=== PATIENT | female | born 1955 | race Caucasian/White ===

== ENCOUNTER 2022-11-14 11:18 | Outpatient (OUT) | payer MEDICARE, OTHER, MEDICAID, SELFPAY ==
[2022-11-14 11:46] LABS: Basophils Absolute Auto 0.1 10^3/uL (0.0-0.1); Basophils Percent Auto 1.5 % (0.2-2.0); Eosinophils Absolute Auto 0.2 10^3/uL (0.0-0.7); Eosinophils Percent Auto 4.7 % (0.9-7.0); Hematocrit 38.2 % (36.0-48.0); Hemoglobin 12.5 g/dL (12.0-16.0); Immature Granulocytes Abs Auto 0.01 10^3/uL (0.00-0.03); Immature Granulocytes Pct Auto 0.3 % (0.0-0.5); Lymphocytes Absolute Auto 0.9 10^3/uL (1.2-3.8); Lymphocytes Percent Auto 27.7 % (20.5-60.0); Mean Corpuscular HGB Conc 32.7 g/dL (29.9-35.2); Mean Corpuscular Hemoglobin 29.9 pg (26.7-34.0); Mean Corpuscular Volume 91.4 fL (81.0-99.0); Mean Platelet Volume 10.2 fL (9.5-13.5); Monocytes Absolute Auto 0.3 10^3/uL (0.3-0.8); Neutrophils Percent Auto 57.8 % (43.0-75.0); Platelet Count 161 10^3/uL (150-450); Red Blood Count 4.18 10^6/uL (4.20-5.40); Red Cell Distribution Width 12.8 % (11.0-15.0); White Blood Count 3.4 10^3/uL (4.0-11.0)
--- NOTE | 2022-11-14 11:49 | XR_ITS ---
The [address] [address] Patient Name: SOFIE ADRIAN MRN: [id number] date: 1955 Sex: F Assigned Patient Location: LAB Current Patient Location: LAB Accession/Order Number: [id number] Exam Date: 11/14/2022 11:57 Report Date: 11/14/2022 13:13 At the request of: ADA WHITE Procedure: XR scoliosis survey EXAMINATION: XR scoliosis survey HISTORY: chronic pain COMPARISON: No relevant comparison available. FINDINGS: VERTEBRA: No fracture, listhesis, or abnormal wedging. Moderate to severe spondylosis and facet osteoarthropathy DISK SPACES: No significant narrowing. CURVATURE: Rotatory dextroscoliosis of the thoracolumbar spine measuring 46 degrees MEASURED FROM: T11 L4 OTHER: Hyperinflation with clear lungs. Nonobstructive bowel gas pattern. XR/XR scoliosis survey IMPRESSION: Rotatory dextroscoliosis measuring 46 degrees with underlying degenerative changes Electronically authenticated by: JOSE VAUGHN Date: 11/14/2022 13:13
--- NOTE | 2022-11-14 11:49 | XR_ITS ---
The [place] [id number] Patient Name: SOFIE ADRIAN MRN: [id number] date: 1955 Sex: F Assigned Patient Location: LAB Current Patient Location: LAB Accession/Order Number: [id number] Exam Date: 11/14/2022 11:57 Report Date: 11/14/2022 18:19 At the request of: ADA WHITE Procedure: XR knee KARLOS 4V EXAMINATION: XR knee KARLOS 4V HISTORY: bilateral knee pain COMPARISON: No relevant comparison available. FINDINGS: RIGHT FINDINGS: BONES: Mild tricompartmental osteoarthropathy. No acute fracture or dislocation SOFT TISSUES: Negative. No visible soft tissue swelling. OTHER: Suprapatellar joint effusion LEFT FINDINGS: BONES: Mild tricompartmental osteoarthropathy. No acute fracture or dislocation SOFT TISSUES: Negative. No visible soft tissue swelling. OTHER: Negative. XR/XR knee KARLOS 4V IMPRESSION: RIGHT CONCLUSION: Mild osteoarthritis LEFT CONCLUSION: Mild osteoarthritis Electronically authenticated by: JOSE VAUGHN Date: 11/14/2022 18:19
--- NOTE | 2022-11-14 11:49 | XR_ITS ---
The [address] [address] Patient Name: SOFIE ADRIAN MRN: [id number] date: 1955 Sex: F Assigned Patient Location: LAB Current Patient Location: LAB Accession/Order Number: [id number] Exam Date: 11/14/2022 11:57 Report Date: 11/14/2022 18:17 At the request of: ADA WHITE Procedure: XR hip KARLOS EXAMINATION: XR hip KARLOS HISTORY: bilateral hip pain COMPARISON: No relevant comparison available. FINDINGS: RIGHT FINDINGS: BONES: No acute fracture or dislocation. Minimal enthesopathic spurring SOFT TISSUES: Negative. No visible soft tissue swelling. OTHER: Negative. LEFT FINDINGS: BONES: No acute fracture or dislocation. Minimal enthesopathic spurring SOFT TISSUES: Negative. No visible soft tissue swelling. OTHER: Negative. XR/XR hip KARLOS IMPRESSION: RIGHT CONCLUSION: Minimal degenerative change LEFT CONCLUSION: Minimal degenerative change Electronically authenticated by: JOSE VAUGHN Date: 11/14/2022 18:17
[2022-11-14 11:58] LABS: Bilirubin Urine NEGATIVE (NEGATIVE); Blood Urine NEGATIVE (NEGATIVE); Clarity Urine CLEAR (CLEAR); Color Urine LT. YELLOW (YELLOW); Glucose Urine UA NEGATIVE (NEGATIVE); Ketones Urine NEGATIVE (NEGATIVE); Leukocyte Esterase Urine TRACE (NEGATIVE); Nitrite Urine NEGATIVE (NEGATIVE); Protein Urine NEGATIVE (NEG/TRACE); Urobilinogen Urine 0.2 EU/dL (0.2-1.0); pH Urine 5.5 (5.0-9.0)
[2022-11-14 12:01] LABS: Bacteria Urine NONE SEEN #/HPF (NONE SEEN); Mucus Urine NONE SEEN (NONE SEEN); RBC Urine NONE SEEN #/HPF (0-2); WBC Urine 0-2 #/HPF (NONE SEEN)
[2022-11-14 12:02] LABS: Squamous Epithelial Cell Urine FEW #/LPF (NONE/RARE)
[2022-11-14 12:33] LABS: Alanine Aminotransferase 24 U/L (14-59); Albumin Globulin Ratio 1.2; Albumin Level 4.1 g/dL (3.4-5.0); Alkaline Phosphatase 45 U/L (46-116); Anion Gap 13.5; Aspartate Amino Transferase 21 U/L (15-37); BUN Creatinine Ratio 27.1; Bilirubin Total 0.5 mg/dL (0.2-1.0); Carbon Dioxide 27.9 mmol/L (21.0-32.0); Chloride 105 mmol/L (98-107); Chol HDL Ratio 2.4; Cholesterol 178 mg/dL (<=200); Estimated GFR (African America >60 (>=60); Estimated GFR (Non-African Ame >60 (>=60); Globulin 3.4 g/dL; Glucose 86 mg/dL (74-106); HDL Cholesterol 73 mg/dL (40-60); Potassium 4.4 mmol/L (3.5-5.1); Sodium 142 mmol/L (136-145); Total Protein 7.5 g/dL (6.4-8.2); Triglycerides 46 mg/dL (<=150); VLDL CHOLESTEROL 9.2 mg/dL
== END 2022-11-14 11:19 | disposition home or self-care (01) ==
LOC: LAB 11:23
PROVIDERS: PCP Nurse Practitioner; Visit Provider Nurse Practitioner
DX: E78.5 Hyperlipidemia, unspecified (principal); I10 Essential (primary) hypertension; D50.9 Iron deficiency anemia, unspecified; M25.561 Pain in right knee; M25.562 Pain in left knee; G89.29 Other chronic pain; M41.9 Scoliosis, unspecified; M25.551 Pain in right hip; M25.552 Pain in left hip; M17.0 Bilateral primary osteoarthritis of knee
CPT/HCPCS: 36415; 72082; 73522; 73564; 80053; 80061; 81001; 82728; 83540; 85025

== ENCOUNTER 2023-02-03 14:45 | Outpatient (OUT) | payer MEDICARE, OTHER, MEDICAID, SELFPAY ==
--- NOTE | 2023-02-03 | XR_ITS ---
The [address] [address] Patient Name: SOFIE ADRIAN MRN: [id number] date: 1955 Sex: F Assigned Patient Location: [facility] Current Patient Location: [facility] Accession/Order Number: [id number] Exam Date: 02/03/2023 13:10 Report Date: 02/03/2023 15:35 At the request of: MOHAMUD ORTEGA Procedure: XR foot KARLOS min 3V STUDY: XR foot KARLOS min 3V, [id number] HISTORY: CHECKING SURGICAL HARWARE COMPARISON: Bilateral foot x-rays 08/06/2021. FINDINGS: Right foot: Status post first metatarsophalangeal joint effusion. There are new lucencies at the bone hardware interface surrounding the first proximal phalanx fusion screws. No significant bone hardware interface lucency involving the screws at the first metatarsal. No acute fracture or dislocation. Resection of the distal aspect of the proximal second through fifth phalanges. Mild osteoarthritis of the midfoot. Left foot: First metatarsophalangeal joint fusion hardware is intact and similar alignment. No evidence of loosening or infection. No acute fracture, dislocation, or suspicious osseous lesion. Resection of the distal aspects of the second through fifth proximal phalanges. IMPRESSION: New lucency at the bone hardware interface involving the fusion screws of the right first proximal phalanx which could represent the sequela of loosening or infection. Electronically authenticated by: FLORENTINO ROSS Date: 02/03/2023 15:35
== END 2023-02-03 14:46 | disposition home or self-care (01) ==
LOC: RAD 14:46
PROVIDERS: PCP Nurse Practitioner; Visit Provider Physician Assistant
DX: M79.673 Pain in unspecified foot (principal); Z98.1 Arthrodesis status
CPT/HCPCS: 73630

== ENCOUNTER 2023-04-29 12:40 | Outpatient (REF) | payer MEDICARE, MEDICAID, SELFPAY ==
[2023-04-29 13:18] LABS: Influenza Virus A Antigen Negative; Influenza Virus B Antigen Negative; Internal Control Within Normal Limits; SARS-CoV-2 Ag POSITIVE (NEGATIVE)
== END 2023-04-29 12:41 | disposition home or self-care (01) ==
LOC: LAB 12:40
PROVIDERS: PCP Nurse Practitioner; Visit Provider Nurse Practitioner
DX: Z11.8 Encounter for screening for other infectious and parasitic diseases (principal)
CPT/HCPCS: 87804; 87811

== ENCOUNTER 2023-06-03 11:01 | Outpatient (OUT) | payer MEDICARE, SELFPAY ==
--- NOTE | 2023-06-03 | XR_ITS ---
The [address] [address] Patient Name: SOFIE ADRIAN MRN: [id number] date: 1955 Sex: F Assigned Patient Location: [facility] Current Patient Location: [facility] Accession/Order Number: [id number] Exam Date: 06/03/2023 11:09 Report Date: 06/03/2023 13:08 At the request of: BARRETT MORRISON Procedure: XR foot RT min 3V PROCEDURE: XR foot RT min 3V COMPARISON: 02/03/2023 HISTORY: RIGHT FOOT PAIN FINDINGS: BONES:Stable fusion of the first metatarsal-phalangeal joint with a dorsal plate and screws. Incomplete bony bridging. No acute fracture, dislocation or mechanical failure. Mild degenerative changes with marginal osteophyte formation. Minimal enthesopathic spurring plantar calcaneus SOFT TISSUES:Negative. No visible soft tissue swelling. EFFUSION:None visible. OTHER: Negative. XR/XR foot RT min 3V IMPRESSION: Stable first metatarsal-phalangeal joint fusion with incomplete bony bridging Electronically authenticated by: JOSE VAUGHN Date: 06/03/2023 13:08
--- OUTSIDE RECORDS SUMMARY | 2023-06-03 11:16 | XMS_ITS | CCD ---
Author Name Unknown Address [email or web address] [place] [address] Organization [facility] Care Team Providers Care Framing Consultant Name Role Phone NATASHA YUN (MODEL MAKER) Unavailable UnavailNATASHA Sherman (MODEL MAKER) Unavailable UnavailTERESA Miranda Unavailable Unavailable ALAEDEEN, ADIS Unavailable Unavailable AICHHOLZ, YOUTH MINISTRY DIRECTOR ROSARIO Admitting Unavailable AICHHOLZ, YOUTH MINISTRY DIRECTOR ROSARIO Attending Unavailable AICHHOLZ, YOUTH MINISTRY DIRECTOR ROSARIO Consulting Unavailable AICHHOLZ, YOUTH MINISTRY DIRECTOR ROSARIO Primary Care Unavailable DR ISAIAH ROJAS Consulting Unavailable AICHHOLZ, YOUTH MINISTRY DIRECTOR ROSARIO Admitting Unavailable AICHHOLZ, YOUTH MINISTRY DIRECTOR ROSARIO Attending Unavailable AICHHOLZ, YOUTH MINISTRY DIRECTOR ROSARIO Consulting Unavailable AICHHOLZ, YOUTH MINISTRY DIRECTOR ROSARIO Primary Care Unavailable AICHHOLZ, YOUTH MINISTRY DIRECTOR ROSARIO Admitting Unavailable AICHHOLZ, YOUTH MINISTRY DIRECTOR ROSARIO Consulting Unavailable AICHHOLZ, YOUTH MINISTRY DIRECTOR ROSARIO Attending Unavailable AICHHOLZ, YOUTH MINISTRY DIRECTOR ROSARIO Primary Care Unavailable DR ISAIAH ROJAS Consulting Unavailable JOCELINE ORTEGA Attending Unavailable DR ISAIAH ROJAS Consulting Unavailable JORDAN, JOCELINE Admitting Unavailable AICHHOLZ, YOUTH MINISTRY DIRECTOR ROSARIO Primary Care Unavailable JOCELINE ORTEGA Consulting Unavailable DR ISAIAH ROJAS Consulting Unavailable JORDAN, JOCELINE Admitting Unavailable JORDAN, JOCELINE Attending Unavailable AICHHOLZ, YOUTH MINISTRY DIRECTOR ROSARIO Primary Care Unavailable JORDAN, JOCELINE Consulting Unavailable DR JESSICA SAMPSON Consulting Unavailable GRABIEL, NAYE Admitting Unavailable NAYE SPAIN Attending Unavailable AICHHOLZ, YOUTH MINISTRY DIRECTOR ROSARIO Primary Care Unavailable DR HOLLIE MATA Consulting Unavailable CHAPIN DEJESUS Consulting Unavailable NAYE SPAIN Consulting Unavailable BRIEN JAIMES Consulting Unavailable AICHHOLZ, YOUTH MINISTRY DIRECTOR ROSARIO Consulting Unavailable AICHHOLZ, YOUTH MINISTRY DIRECTOR ROSARIO Admitting Unavailable AICHHOLZ, YOUTH MINISTRY DIRECTOR ROSARIO Attending Unavailable AICHHOLZ, YOUTH MINISTRY DIRECTOR ROSARIO Primary Care Unavailable AICHHOLZ, YOUTH MINISTRY DIRECTOR ROSARIO Admitting Unavailable MONIQUE AMEZUQITA Attending Unavailable MONIQUE AMEZQUITA Consulting Unavailable MONIQUE AMEZQUITA Primary Care Unavailable ROSARIO AMEZQUITA Attending Unavailable Allergies Allergy Classification Reported Allergen(s) Allergy Type Date of Onset Reaction(s) Facility (3 sources) Penicillins; Translations: [PENICILLINS] Propensity to adverse reactions to drug (disorder) 4 [facility] Other [place] Repository (2 sources) Sulfonamides (Antibiotic); Translations: [SULFA (SULFONAMIDE ANTIBIOTICS)] Propensity to adverse reactions to drug (disorder) 4 [facility] Repository (1 source) Sulfonamides (Antibiotic) Drug allergy (disorder) 5 [facility] Repository Problems Active Problems Problem Classification Problem Date Documented Da te Episodic/Chronic Essential hypertension (1 source) Essential (primary) hypertension; Translations: [ESSENTIAL PRIMARY HYPERTENSION] Onset: 10-23-2021 Chronic Other screening for suspected conditions (not mental disorders or infectious disease) (9 sources) Encounter for screening mammogram for malignant neoplasm of breast; Translations: [Encounter for screening for malignant neoplasm of cervix] Onset: 01-06-2022 Episodic Residual codes; unclassified (1 source) Family history of malignant neoplasm of prostate; Translations: [FAMILY HX MALIG NEOPLASM PROSTATE] Onset: 07-25-2022 Episodic Unclassified (4 sources) CONTACT W/AND (SUSP) EXPOS COVID-19; Translations: [CONTACT W/AND (SUSP) EXPOS COVID-19] Onset: 10-23-2021 Past or Other Problems Problem Classification Problem Date Documented Da te Episodic/Chronic Abdominal pain (5 sources) Generalized abdominal pain; Translations: [Epigastric pain] Onset: 02-04-2017 Episodic Deficiency and other anemia (4 sources) Iron deficiency anemia, unspecified; Translations: [IRON DEFICIENCY ANEMIA UNSPECIFIED] Onset: 12-03-2021 Episodic Intestinal obstruction without hernia (2 sources) Other intestinal obstruction; Translations: [Unspecified intestinal obstruction, unspecified as to partial versus complete obstruction] Onset: 01-09-2017 Episodic Nausea and vomiting (1 source) Nausea with vomiting, unspecified; Translations: [NAUSEA WITH VOMITING UNSPECIFIED] Onset: 10-23-2021 Episodic Other aftercare (1 source) Other fci (current) drug therapy; Translations: [OTH NURSING HOME CURRENT DRUG THERAPY] Onset: 10-23-2021 Episodic Other aftercare (1 source) shelter (current) use of aspirin; Translations: [ANODE BUILDER CURRENT USE OF ASPIRIN] Onset: 10-23-2021 Episodic Other bone disease and musculoskeletal deformities (1 source) Other specified disorders of bone density and structure, unspecified thigh; Translations: [OTH D/O BONE DEN STRUCT UNS THIGH] Onset: 01-13-2022 Episodic Other connective tissue disease (5 sources) Pain in left foot; Translations: [PAIN IN LEFT FOOT] Onset: 08-09-2021 Episodic Other connective tissue disease (4 sources) Pain in right foot; Translations: [PAIN IN RIGHT FOOT] Onset: 08-06-2021 Episodic Residual codes; unclassified (4 sources) Asymptomatic menopausal state; Translations: [ASYMPTOMATIC MENOPAUSAL STATE] Onset: 01-09-2022 Episodic Screening and history of mental health and substance abuse codes (1 source) Personal history of nicotine dependence; Translations: [PERSONAL HISTORY OF NICOTINE DEPEND] Onset: 10-23-2021 Episodic Unclassified (1 source) CONTACT W/AND (SUSP) EXPOS COVID-19; Translations: [CONTACT W/AND (SUSP) EXPOS COVID-19] Onset: 02-12-2022 Results Test Name Value Interpretation Reference Range Facility MG MAMM SCREEN 3D KARLOS CADon 07-21-2022 MG MAMM SCREEN 3D KARLOS CAD Patient: SOFIE ADRIAN Exam Date: 07/21/2022 : 1955 Gender:F Ordering : MONIQUE AMEZQUITA [facility] Admission #: [id number] Family : Order #: [id number] CLICK HERE TO VIEW EXAM RADIOLOGY REPORT PROCEDURE: MAMMOGRAM SCREENING 3D BILATERAL CAD COMPARISON: MG MAMM SCREEN 3D KARLOS CAD, 07/16/2021. MG MAMM SCREEN KARLOS W CAD, 04/17/2020. MG MAMM SCREEN KARLOS W CAD, 04/04/2019. MG MAMM SCREEN KARLOS W CAD, 07/29/2012. INDICATIONS: Screening mammography Calculator Name NCI Breast Cancer Risk Assessment Tool 5 Year Breast Cancer Risk 1.20% Lifetime Breast Cancer Risk 4.20% Personal Breast Cancer No Personal Ovarian Cancer No Treatments None Family Cancers Father with prostate cancer at age 75. LOCATION: [facility] BREAST COMPOSITION: Scattered areas fibroglandular density. FINDINGS: DIAGNOSTIC CATEGORY 1--NEGATIVE. RIGHT BREAST: No significant suspicious finding. No significant change has occurred. LEFT BREAST: No significant suspicious finding. No significant change has occurred. RECOMMENDATIONS: ROUTINE MAMMOGRAM AND CLINICAL EVALUATION IN 12 MONTHS. PLEASE NOTE: A NORMAL MAMMOGRAM DOES NOT EXCLUDE THE POSSIBILITY OF BREAST CANCER. A CLINICALLY SUSPICIOUS PALPABLE LUMP SHOULD BE BIOPSIED. Dictated by: Isaiah Rojas M.D. on 07/21/2022 at 12:14 Approved by: Isaiah Rojas M.D. on 07/21/2022 at 12:20 Normal [facility]-25 SARS-CoV-2 (COVID-19) RNA BOBO+probe Ql (Unsp spec) Not detected Normal NOT DETECTED [facility] Comment on above: Result Comment: This test is not yet bryson roved or cleared by the [place] FDA. When there are no FDA-approved or cleared tests available, and other criteria are met, FDA can make tests available under an emergency access mechanism called an Emergency Use Authorization (EUA). The EUA for this test is supported by the Adult Services Librarian of Health and Human Service's (HHS's) declaration that circumstances exist to justify the emergency use of in vitro diagnostics for the detection and/or diagnosis of the virus that causes COVID-19. This EUA will remain in effect (meaning this test can be used) for the duration of the COVID-19 declaration justifying emergency of IVDs, unless it is terminated or revoked by FDA (after which the test may no longer be used). When diagnostic testing is negative, the possibility of a false negative should be considered in the context of a patient's recent exposures and the presence of clinical signs and symptoms consistent with SARS-CoV-2. Performed By: #### C VDTB ####[facility] [address] [place], [place] [address]YeDr. Rashida SARMIENTO ACOG PANEL 2: 30 to 65on 01-14-2022 . . Normal [facility] Comment on above: Performed By: #### [id number] ####[facility] [address] [place], [place] [address]Si. Yilan Carcamo Age Gdln ACOG Testing Comment Normal [facility] Comment on above: Result Comment: <21 or >65 or no age pro vided Performed By: #### [id number] ####[facility] [address] [place], [place] [address]DrDallas Carcamo DIAGNOSIS: Comment Normal [facility] Comment on above: Result Comment: NEGATIVE FOR INTRAEPITHE LIAL LESION OR MALIGNANCY. CELLULAR CHANGES ASSOCIATED WITH ATROPHY ARE PRESENT. THIS SPECIMEN WAS RESCREENED PART OF OUR BACK ORDER CLERK PROGRAM. Performed By: #### 4 [id number] ####[facility] [address] [place], [place] [address]DrDallas Carcamo Methodology: Comment Normal [facility] Comment on above: Result Comment: This liquid based ThinPr ep(R) pap test was screened with the use of an image guided system. Performed By: #### 4 [id number] ####[facility] [address] [place], [place] [address]DrDallas Carcamo Note: Comment Normal [facility] Comment on above: Result Comment: The Pap smear is a scree sena test designed to aid in the detection of premalignant and malignant conditions of the uterine cervix. It is not a diagnostic procedure and should not be used as the sole means of detecting cervical cancer. Both false-positive and false-negative reports do occur. . Performed By: #### [id number] ####[facility] [address] [place], [place] [address]DrDallas Carcamo Performed by: Comment Normal [facility] Comment on above: Result Comment: Sukumar Peraza [employer] nologist (ASCP) Performed By: #### 4 [id number] ####[facility] [address] [place], [place] [address]DrDallas Carcamo QC reviewed by: Comment Normal [facility] Comment on above: Result Comment: Neymar Urbano Customer Solutions Coordinator (ASCP) Performed By: #### [id number] ####[facility] [address] [place], [place] [address]DrDallas Carcamo Specimen adequacy: Comment Normal [facility] Comment on above: Result Comment: Satisfactory for evaluat ion. Endocervical component may not be distinguished in cases of atrophy. Performed By: #### 4 [id number] ####[facility] [address] [place] [address]Dr. Rashida Carcamo XR DEXA BONE DENSITYon 01-09 XR DEXA BONE DENSITY EXAMINATION: XR DEXA BONE DENSITY, 01/09/2022 10:30 AM EDT HISTORY: Menopause present COMPARISON: None. TECHNIQUE: Dual-energy X-ray absorptiometry (DEXA) bone density study performed for the axial skeleton. FINDINGS: FOREARM ANALYSIS: Average bone mineral density is 0.550 g/cm2. T-score (standard deviation relative to young adult mean): -2.3 . HIP ANALYSIS: Lowest bone mineral density is within the femoral neck, 0.743 g/cm2. T-score (standard deviation relative to young adult mean): -2.1 . IMPRESSION: World [employer] Organization Classification: Osteopenia - Moderate Fracture Risk Electronically authenticated by: ISAIAH ROJAS Date: 2022-01-09 10:53 Normal [facility] CBC W MANUAL DIFFon 01-07-20 22 ATYPICAL LYMPH # Normal [facility] Comment on above: Performed By: #### CBCBONY ####[facility] [address] [place] [address]Dr. Rashida Carcamo ATYPICAL LYMPH % Normal [facility] Comment on above: Performed By: #### CBCMAN ####[facility] ospital [address] [place] [address]Dr. Kenialan Carcamo BAND # Normal 0.0-0.3 [facility] Comment on above: Performed By: #### CBCBONY ####[facility]spital [address] [place] [address]Dr. Kenialan Carcamo BAND % Normal 0-5 [facility] Comment on above: Performed By: #### CBCMAN ####[facility] ospital [address] [place] [address]Dr. Rashida Carcamo BASOM # 0.00 103/ul Normal 0.00-0.10 [facility] Comment on above: Performed By: #### CBCBONY ####[facility] ospital [address] [place] [address]Dr. Rashida Carcamo BASOM % 0.0 % Critically low 0.2-2.0 [facility] Comment on above: Performed By: #### CBCMAN ####[facility] ospital [address] [place] [address]Dr. Rashida Carcamo BLAST # Normal [facility] Comment on above: Performed By: #### CBCMAN ####[facility] [address] [place] [address]Dr. Rashida Carcamo BLAST % Normal [facility] Comment on above: Performed By: #### CBCMAN ####[facility] o[facility]ital [address] [place] [address]Dr. Rashida Carcamo CORRECTED WBC Normal 4.0-11.0 [facility] Comment on above: Performed By: #### CBCMAN ####[facility] [address] [place] [address]Dr. Rashida Carcamo EOS # 0.00 103/ul Normal 0.00-0.70 [facility] Comment on above: Performed By: #### CBCMAN ####[facility] o[facility] [address] [place] [address]Dr. Rashida Carcamo EOS% 0.0 % Critically low 0.9-7.0 [facility] Comment on above: Performed By: #### CBCMAN ####[facility] [address] [place] [address]Dr. Rashida Carcamo HCT 37.0 % Normal 36.0-48.0 [facility] Comment on above: Performed By: #### CBCMAN ####[facility] o[facility] Y[address] [place] [address]Dr. Rashida Carcamo HGB 12.0 g/dl Normal 12.0-16.0 [facility] Comment on above: Performed By: #### CBCMAN ####[facility] ospital [address] [place] [address]Dr. Rashida Carcamo LYMPHM # 0.70 103/ul Critically low 1.20-3.80 [facility] Comment on above: Performed By: #### CBCBONY ####[facility] o[facility]ital [address] [place] [address]Dr. Rashida Carcamo LYMPHM% 25.0 % Normal 20.5-60.0 [facility] Comment on above: Performed By: #### CBCMAN ####[facility] [address] [place] [address]Dr. Rashida Carcamo MCH 30.4 pg Normal 26.7-34.0 [facility] Comment on above: Performed By: #### CBCBONY ####[facility] o[facility] [address] [place] [address]Dr. Rashida Carcamo MCHC 32.4 g/dl Normal 29.9-35.2 [facility] Comment on above: Performed By: #### CBCBONY ####[facility] o[facility]ital [address] [place] [address]Dr. Rashida Carcamo MCV 93.7 fL Normal 81.0-99.0 [facility] Comment on above: Performed By: #### CBCMAN ####[facility] [address] [place] [address]Dr. Rashida Carcamo METAMYELOCYTE # Normal [facility] Comment on above: Performed By: #### CBCMAN ####[facility] [address] [place] [address]Dr. Rashida Carcamo METAMYELOCYTE % Normal [facility] Comment on above: Performed By: #### CBCMAN ####[facility] o[facility]ital [address] [place] [address]Dr. Rashida Carcamo MONOM# 0.22 103/ul Critically low 0.30-0.80 [facility] Comment on above: Performed By: #### CBCMAN ####[facility] Sakimgbtcb[address] [place] [address]Dr. Rashida Carcamo MONOM% 8.0 % Normal 1.7-12.0 [facility] Comment on above: Performed By: #### CBCBONY ####[facility] X[address]fyz[address] [place] [address]Dr. Rashida Carcamo MPV 10.8 fL Normal 9.5-13.5 [facility] Comment on above: Performed By: #### CBCBONY ####[facility] o[facility]ital Kcyktcqjdw[address] [place] [address]Dr. Rashida Carcamo MYELOCYTE # Normal [facility] Comment on above: Performed By: #### CBCBONY ####[facility] o[facility]ital Re[address] [place] [address]Dr. Rashida Carcamo MYELOCYTE % Normal [facility] Comment on above: Performed By: #### CBCBONY ####[facility] o[facility]ital Hopej[address]yje[address] [place] [address]Dr. Rashida Carcamo NRBC Normal [facility] Comment on above: Performed By: #### CBCBONY ####[facility] o[facility] D[address]jw[address] [place] [address]Dr. Rashida Carcamo PLT 154 103/ul Normal 150-450 [facility] Comment on above: Performed By: #### CBCBONY ####[facility] Eqrswgwecn[address] [place] [address]Dr. Rashida Carcamo RBC 3.95 106/ul Critically low 4.20-5.40 [facility] Comment on above: Performed By: #### CBCBONY ####[facility] o[facility]ital [address]qncv[address] [place] [address]Dr. Rashida Carcamo RDW 13.2 % Normal 11.0-15.0 [facility] Comment on above: Performed By: #### CBCBONY ####[facility] Lcgpdfmrws4254 [place] [address]Dr. Rashida Carcamo SEG # 1.88 103/ul Normal 1.40-6.50 [facility] Comment on above: Performed By: #### CBCBONY ####[facility] o[facility]ital Mhevptiubw[address] [place] [address]Dr. Rashida Carcamo SEG % 67.0 % Normal 43.0-75.0 [facility] Comment on above: Performed By: #### CBCMAN ####[facility] o[facility]ital Rrlbwgjiyy[address] [place] [address]Dr. Rashida Carcamo WBC 2.8 103/ul Critically low 4.0-11.0 [facility] Comment on above: Performed By: #### CBCMAN ####[facility] ospital [address] [place], [place] [address]DrDallas Aquinoflory Carlos Alberto CBC AUTO DIFFon 12-03-2021 BASO # 0.1 103/ul Normal 0.0-0.1 [facility] Comment on above: Performed By: #### CBC ####[facility] ital Bauldeptob[address] [place], [place] [address]DrDallas Carcamo Basophils/100 WBC (Bld) 1.9 % Normal 0.2-2.0 [facility] Comment on above: Performed By: #### CBC ####[facility] ital Rncektnkji[address] [place], [place] [address]DrDallas Carcamo EO # 0.2 103/ul Normal 0.0-0.7 [facility] Comment on above: Performed By: #### CBC ####[facility] ital Ikgwpihqnx[address] [place], [place] [address]DrDallas Carcamo Eosinophils/100 WBC (Bld) 5.6 % Normal 0.9-7.0 [facility] Comment on above: Performed By: #### CBC ####[facility] ital Iyeexpbpaw[address] [place], [place] [address]DrDallas Carcamo Erythrocyte distribution width (RBC) [Ratio] 13.6 % Normal 11.0-15.0 [facility] Comment on above: Performed By: #### CBC ####[facility] ital [address]joc[address] [place], [place] [address]DrDallas Carcamo Hematocrit (Bld) [Volume fraction] 38.0 % Normal 36.0-48.0 [facility] Comment on above: Performed By: #### CBC ####[facility] ital Jnulqgrdfl[address] [place], [place] [address]Dr. Rashida Carcamo Hemoglobin (Bld) [Mass/Vol] 11.7 g/dL Critically low 12.0-16.0 [facility] Comment on above: Performed By: #### CBC ####[facility] ital Lrbxjjrnpj[address] [place] [address]Dr. Rashida Carcamo IG # 0.00 10e3/ul Normal 0.00-0.03 [facility] Comment on above: Performed By: #### CBC ####[facility] ital Qcuwchscax[address]16 [place] [address]Dr. Rashida Carcamo IG % 0.0 % Normal 0.0-0.5 [facility] Comment on above: Performed By: #### CBC ####[facility] [address] [place] [address]. Rashida Carcamo LYMPH # 0.8 103/ul Critically low 1.2-3.8 [facility] Comment on above: Performed By: #### CBC ####[facility] Ulsopoaldi[address] [place], [place] [address]Dr. Rashida Carcamo Lymphocytes/100 WBC (Bld) 29.3 % Normal 20.5-60.0 [facility] Comment on above: Performed By: #### CBC ####[facility] Bjqjkuyahd[address] [place], [place] [address]Dr. Rashida Carcamo MANUAL DIFF REQ NO Normal [facility] Comment on above: Performed By: #### CBC ####[facility] Csugeviimp[address] [place], [place] [address]Dr. Rashida Carcamo MCH (RBC) [Entitic mass] 29.7 pg Normal 26.7-34.0 [facility] Comment on above: Performed By: #### CBC ####[facility] Wbrxbxsgxu[address] [place], [place] [address]Dr. Rashida Carcamo MCHC (RBC) [Mass/Vol] 30.8 g/dL Normal 29.9-35.2 [facility] Comment on above: Performed By: #### CBC ####[facility] [address]ot[address]mkhv[address] [place], [place] [address]Dr. Rashida Carcamo MCV (RBC) [Entitic vol] 96.4 fL Normal 81.0-99.0 [facility] Comment on above: Performed By: #### CBC ####[facility] Ketqcrjggi50[address] [place] [address]DrDallas Rashida Carcamo MONO # 0.2 103/ul Critically low 0.3-0.8 [facility] Comment on above: Performed By: #### CBC ####[facility] [address]jimzvjjm[address] [place], [place] [address]Dallas Rashida Carcamo Monocytes/100 WBC (Bld) 7.5 % Normal 1.7-12.0 [facility] Comment on above: Performed By: #### CBC ####[facility] J[address]ujqizdou[address] [place], [place] [address]Dallas Rashida Carcamo NEUT # 1.5 103/ul Normal 1.4-6.5 [facility] Comment on above: Performed By: #### CBC ####[facility] O[address] [place] [address]. Rashida Carcamo Neutrophils/100 WBC (Bld) 55.7 % Normal 43.0-75.0 [facility] Comment on above: Performed By: #### CBC ####[facility] Ekuhdtdods[address] [place], [place] [address]Dallas Rashida Carcamo Platelet mean volume (Bld) [Entitic vol] 10.6 fL Normal 9.5-13.5 [facility] Comment on above: Performed By: #### CBC ####[facility] Tigtp[address]azrg[address] [place], [place] [address]Dallas Rashida Carlos Alberto PLT 165 103/ul Normal 150-450 [facility] Comment on above: Performed By: #### CBC ####[facility] X[address]bulnq[address] [place], [place] [address]DrDallas Rashida Carlos Alberto RBC 3.94 106/ul Critically low 4.20-5.40 [facility] Comment on above: Performed By: #### CBC ####[facility] I[address]zlns[address] [place], [place] [address]DrDallas Carcamo WBC 2.7 103/ul Critically low 4.0-11.0 [facility] [facility] Comment on above: Performed By: #### CBC ####[facility] [address] [place] [address]74[address]Vc. Rashida Carcamo IRONon 12-03-2021 Iron [Mass/Vol] 85.0 ug/dL Normal 50.0-170.0 [facility] Comment on above: Performed By: #### IRON ####[facility] [id number] [place] [id number]. Rashida Carcamo Basic metabolic 2000 panelon 10-22-2021 Anion gap [Moles/Vol] 16 mmol/L Normal 9-18 [facility] Comment on above: Order Comment: Specimen Type: BLOOD SPEC IMEN Ordering Facility: [facility] Address: [address] [place] [address] Performed By: #### 2 777-1, , #### [facility] CLIA [id number] [address] [place] [address] [place] Calcium [Mass/Vol] 9.5 mg/dL Normal 8.5-10.2 [facility] Comment on above: Order Comment: Specimen Type: BLOOD SPEC IMEN Ordering Facility: [facility] Address: [address] [place] [address] Performed By: #### 2 777-1, , #### [facility] CLIA [id number] [address] [place] [address] [place] Chloride [Moles/Vol] 100 mmol/L Normal 97-105 [facility] Comment on above: Order Comment: Specimen Type: BLOOD SPEC IMEN Ordering Facility: [facility] Address: [address] [place] [address] Performed By: #### 2 777-1, , #### [facility] CLIA [id number] [address] [place] [address] [place] CO2 [Moles/Vol] 29 mmol/L Normal 22-30 [facility] Comment on above: Order Comment: Specimen Type: BLOOD SPEC IMEN Ordering Facility: [facility] Address: [address] [place] [address] Performed By: #### 2 777-1, , 49829-7 #### [facility] CLIA [id number] [address] [place] [address] [place] Creatinine [Mass/Vol] 0.58 mg/dL Normal 0.58-0.96 [facility] Comment on above: Order Comment: Specimen Type: BLOOD SPEC IMEN Ordering Facility: [facility] Address: [address] [place] [address] Performed By: #### 2 777-1, , #### [facility] CLIA [id number] [address] [place] [address] [facility] ESTIMATED GLOMERULAR FILTRATION RATE 100 mL/min/1.73m??? Normal >=60 [facility] Comment on above: Order Comment: Specimen Type: BLOOD SPEC IMEN Ordering Facility: [facility] Address: [address] [place] [address] Result Comment: Humaira mated Glomerular Filtration Rate (eGFR) is calculated using the 2020 CKD-EPI creatinine equation. This equation utilizes serum creatinine, sex, and age as parameters. The creatinine assay has traceable calibration to isotope dilution-mass spectrometry. Refer to KDIGO guidelines for clinical interpretation. In patients with unstable renal function, e.g. those with acute kidney injury, the eGFR may not accurately reflect actual GFR. Performed By: #### 2 777-1, , #### [facility] CLIA [id number] [address] [place] [address] [place] Glucose [Mass/Vol] 90 mg/dL Normal 74-99 [facility] Comment on above: Order Comment: Specimen Type: BLOOD SPEC IMEN Ordering Facility: [facility] Address: [address] [place] [address] [place] [address] Result Comment: The [place] [employer] (ADA) provides guidance for cutoff values for fasting glucose and random glucose. The ADA defines fasting as no caloric intake for at least 8 hours. Fasting plasma glucose results between 100 to 125 mg/dL indicate increased risk for diabetes (prediabetes). Fasting plasma glucose results greater than or equal to 126 mg/dL meet the criteria for diagnosis of diabetes. In the absence of unequivocal hyperglycemia, results should be confirmed by repeat testing. In a patient with classic symptoms of hyperglycemia or hyperglycemic crisis, random plasma glucose results greater than or equal to 200 mg/dL meet the criteria for diagnosis of diabetes. Reference: Standards of Medical Care in Diabetes 2016, [place] [employer]. Diabetes Care. 2016.39(Suppl 1). Performed By: #### 2 777-1, , 86828-6 #### [facility] CLIA [id number] [address] [place] [address] [place] Potassium [Moles/Vol] 3.2 mmol/L Low 3.7-5.1 [facility] Comment on above: Order Comment: Specimen Type: BLOOD SPEC IMEN Ordering Facility: [facility] Address: [address] [place], [place] [id number] Performed By: #### 2 777-1, , #### [facility] CLIA [id number] [address] [place] [address] [place] Sodium [Moles/Vol] 145 mmol/L High 136-144 [facility] Comment on above: Order Comment: Specimen Type: BLOOD SPEC IMEN Ordering Facility: [facility] Address: [address] [place], [place] [id number] Performed By: #### 2 777-1, , #### [facility] CLIA [id number] [address] [place] [address] [place] Urea nitrogen [Mass/Vol] 6 mg/dL Low 7-21 [facility] Comment on above: Order Comment: Specimen Type: BLOOD SPEC IMEN Ordering Facility: [facility] Address: [address] [place] [address] Performed By: #### 2 777-1, 99383-6, 14920-8 #### [facility] CLIA [id number] [address] [place] [address] [place] CBC panel Auto (Bld)on 10-22 Erythrocyte distribution width (RBC) [Ratio] 13.6 % Normal 11.5-15.0 [facility] Comment on above: Order Comment: Specimen Type: BLOOD SPEC IMEN Ordering Facility: [facility] Address: [address] [place] [address] Performed By: #### 5 8410-2 #### [facility] CLIA [id number] [address] [place] [address] [place] Hematocrit (Bld) [Volume fraction] 40.4 % Normal 36.0-46.0 [facility] Comment on above: Order Comment: Specimen Type: BLOOD SPEC IMEN Ordering Facility: [facility] Address: [address] [place] [address] Performed By: #### 5 8410-2 #### [facility] CLIA [id number] [address] [place] [address] [place] Hemoglobin (Bld) [Mass/Vol] 12.9 g/dL Normal 11.5-15.5 [facility] Comment on above: Order Comment: Specimen Type: BLOOD SPEC IMEN Ordering Facility: [facility] Address: [address] [place] [address] Performed By: #### 5 8410-2 #### [facility] CLIA [id number] [address] [place] [address] [place] MCH (RBC) [Entitic mass] 28.7 pg Normal 26.0-34.0 [facility] Comment on above: Order Comment: Specimen Type: BLOOD SPEC IMEN Ordering Facility: [facility] Address: [address] [place], [place] [address] Performed By: #### 5 8410-2 #### [facility] CLIA [id number] [address] [place] [address] [place] MCHC (RBC) [Mass/Vol] 31.9 g/dL Normal 30.5-36.0 [facility] Comment on above: Order Comment: Specimen Type: BLOOD SPEC IMEN Ordering Facility: [facility] Address: [address] [place], [place] [address] Performed By: #### 5 8410-2 #### [facility] CLIA [id number] [address] [place] [address] [place] MCV (RBC) [Entitic vol] 90.0 fL Normal 80.0-100.0 [facility] Comment on above: Order Comment: Specimen Type: BLOOD SPEC IMEN Ordering Facility: [facility] Address: [address] [place], [place] [address] Performed By: #### 5 8410-2 #### [facility] CLIA [id number] [address] [place] [address] [place] Nucleated RBC (Bld) [#/Vol] 10*3/uL Normal <0.01 [facility] Comment on above: Order Comment: Specimen Type: BLOOD SPEC IMEN Ordering Facility: [facility] Address: [address] [place] [address] Performed By: #### 5 8410-2 #### [facility] CLIA [id number] [address] [place] [address] [place] Platelet mean volume (Bld) [Entitic vol] 10.8 fL Normal 9.0-12.7 [facility] Comment on above: Order Comment: Specimen Type: BLOOD SPEC IMEN Ordering Facility: [facility] Address: [address] [place], [place] [address] Performed By: #### 5 8410-2 #### [facility] CLIA [id number] [address] [place] [address] [place] Platelets (Bld) [#/Vol] 155 10*3/uL Normal 150-400 [facility] Comment on above: Order Comment: Specimen Type: BLOOD SPEC IMEN Ordering Facility: [facility] Address: [address] [place] [address] Performed By: #### 5 8410-2 #### [facility] CLIA [id number] [address] [place] [address] [place] RBC (Bld) [#/Vol] 4.49 10*6/uL Normal 3.90-5.20 [facility] Comment on above: Order Comment: Specimen Type: BLOOD SPEC IMEN Ordering Facility: [facility] Address: [address] [place] [address] Performed By: #### 5 8410-2 #### [facility] CLIA [id number] [address] [place] [address] [place] WBC (Bld) [#/Vol] 2.98 10*3/uL Low 3.70-11.00 [facility] Comment on above: Order Comment: Specimen Type: BLOOD SPEC IMEN Ordering Facility: [facility] Address: [address] [place] [address] Performed By: #### 5 8410-2 #### [facility] IA [id number] [address] [place] [address] [facility] [place] CNDSon 10-22-2021 CNDS HNO ID: [id number] Author: Joceline Liang MD Service: General Surgery Author Type: Resident Type: Discharge Summary Filed: 10/22/2021 4:17 PM Note Text: Attestation signed by Cain Acosta MD at 10/22/2021 8:50 PM Attending Note I evaluated the patient and personally participated in the peters components. I agree with the resident's findings and plan as documented and have discussed the case and management of the patient's care with the resident. Signature: Cain Acosta MD Date: 10/22/2021 Time: 8:50 PM DISCHARGE SUMMARY PATIENT NAME: Sofie Adrian ADMISSION DATE: 10/19/2021 DISCHARGE DATE: 10/22/2021 Attending: Cain Mccrary* Reason for Hospitalization: Principal Problem: Small bowel obstruction (HCC) POA: Yes Resolved Problems: * No resolved hospital problems. * Operations During Hospitalization: None Procedures During Hospitalization: No procedures performed Hospital Course: Ms. Adrian is a 66 year old female who presents as transfer from [facility] for concern for SBO. She has hx of lap total colectomy with ileorectal anastomosis in 2016 and laparoscopic JOHNY for SBO from internal hernia in 2017. 4 days ago she experienced severe pain and biliious, nonbloody emesis and subsequently the same day went to the [facility] emergency room. A CT scan was done that day which revealed SBO (images uploaded). She has been waiting to be transferred to [facility] since then. Since presenting to [facility] on day 1 of her symptomology, she has not had further emesis and has had decreased pain, presumably because of the nausea and pain medications she was getting, in her words. She has had one bowel movement during this time which was last night, and is passing a small amount of flatus. SBFT was done on 10/21 which showed resolving SBO. NG tube was removed and she was started on a CLD. She continued to have ostomy function and was tolerating PO. She was advanced to [facility] and discharged home later that day. ? Labs and Procedures Pending at Discharge: No pending results. Patient Condition at Discharge: Stable Discharge Disposition: Home with Self Care Information Provided to Patient: Patient given copy of Discharge Instructions Discharge Medications:Current Discharge Medication List CONTINUE these medications which have NOT CHANGED buprenorphine-naloxone (SUBOXONE) 8.2 Film Dissolve 8.2 Film under the tongue once daily. Dissolve 2 films under the tongue once daily spironolactone (ALDACTONE) 100 mg Take 100 mg by mouth once daily. Qty: 7 tablet Refills: 0 acetaminophen (TYLENOL) 650 mg Take 650 mg by mouth every 6 hours. Refills: 0 docusate sodium (COLACE) 100 mg Take 100 mg by mouth twice daily. Qty: 30 capsule Refills: 1 magnesium hydroxide (MOM) 30 mL Take 30 mL by mouth twice daily. Qty: 1800 mL Refills: 1 amitriptyline (ELAVIL) 25 mg Take 25 mg by mouth daily at bedtime. celecoxib (CeleBREX) 200 mg Take 200 mg by mouth once daily. hydroCHLOROthiazide (HYDRODIURIL, ESIDRIX) 25 mg Take 25 mg by mouth once daily. HYDROcodone-acetaminophen (NORCO) 1 tablet Take 1 tablet by mouth every 8 hours as needed for pain. meloxicam (MOBIC) 15 mg Take 15 mg by mouth once daily. rOPINIRole (REQUIP) 2 mg Take 2 mg by mouth daily at bedtime. febuxostat (ULORIC) 40 mg tab Take by mouth once daily. albuterol HFA (PROVENTIL HFA, VENTOLIN HFA) 2 Puffs Inhale 2 Puffs as instructed every 6 hours as needed for wheezing/shortness of breath. atorvastatin (LIPITOR) 10 mg Take 10 mg by mouth once daily. Cetirizine 10 mg cap Take by mouth once daily. omeprazole (PriLOSEC) 1 capsule Take 1 capsule by mouth once daily. Qty: 30 capsule Refills: 4 METOPROLOL TARTRATE ORAL 50 mg Take 50 mg by mouth twice daily. FLUoxetine HCl (PROzac) 40 mg Take 40 mg by mouth once daily. traMADol (ULTRAM) 50 mg Take 50 mg by mouth every 6 hours as needed. OTC PRODUCT Indications: OSTEO-BIFLEX Takes 2 PO QD SIGNATURE: Joceline Liang MD PAGER: [phone] DATE: October 22, 2021 TIME: 11:22 AM Normal [facility] Magnesium SerPl-mCncon 10-22 Magnesium [Mass/Vol] 1.6 mg/dL Low 1.7-2.3 [facility] Comment on above: Order Comment: Specimen Type: BLOOD SPEC IMEN Ordering Facility: [facility] Address: [address] [place], [place] [phone] Performed By: #### 2 777-1, 36719-0, 80824-8 #### [facility] CLIA [id number] [address] [place] [address] [facility] Phosphate SerPl-mCncon 10-22 Phosphate [Mass/Vol] 3.0 mg/dL Normal 2.7-4.8 [facility] Comment on above: Order Comment: Specimen Type: BLOOD SPEC IMEN Ordering Facility: [facility] Address: [address] [place], [place] [phone] Performed By: #### 2 777-1, 06491-4, 38177-5 #### [facility] CLIA [id number] [address] [place] [address] [place] VDUVLSon 10-21-2021 VDUVLS Non-Invasive Vascula r Laboratory [facility] J35 Lower Extremity Venous Duplex Bilateral/Complete Date of service/time: 10/21/2021 8:12:37 AM Name: SOFIE ADRIAN Date of : 1955 Age: 66 years Gender: F Clinical Indication Shortness of breath. TECHNIQUE -------- A venous duplex ultrasound examination was performed, including grayscale imaging with compression maneuvers and color Doppler and spectral Doppler examination with augmentation maneuvers and response to respiration of the below mentioned veins. FINDINGS -------- RIGHT SIDE Distal external iliac vein Doppler: normal flow. Compression: normal. Common femoral vein Doppler: normal flow. Compression: normal. Femoral vein Doppler: normal flow. Compression: normal. Popliteal vein Doppler: normal flow. Compression: normal. Posterior tibial veins Compression: normal. Peroneal veins Compression: normal. Great saphenous vein Compression: normal. Small saphenous vein Compression: normal. LEFT SIDE Distal external iliac vein Doppler: normal flow. Compression: normal. Common femoral vein Doppler: normal flow. Compression: normal. Femoral vein Doppler: normal flow. Compression: normal. Popliteal vein Doppler: normal flow. Compression: normal. Posterior tibial veins Compression: normal. Peroneal veins Compression: normal. Great saphenous vein Compression: normal. Small saphenous vein Compression: normal. IMPRESSION RIGHT SIDE - DEEP VEINS Negative for acute deep vein thrombosis. LEFT SIDE - DEEP VEINS Negative for acute deep vein thrombosis. Technologist: Rosi Freeman RVT Ordering physician: JONAS SUAREZ Interpreting physician: Pavithra Barker MD, NOELLE, RVT Final [id number] amicsSISUID See Link below for Image Normal [facility] XR SMALL BOWEL SERIESon 09-26 XR SMALL BOWEL SERIES * * *Final Report* * * DATE OF EXAM: Oct 21 2021 2:38PM HGX [id number] - XR SMALL BOWEL SERIES / PROCEDURE REASON: Bowel obstruction suspected * * * * Physician Interpretation * * * * SMALL BOWEL SERIES HISTORY:Laparoscopic total abdominal colectomy with ileorectal anastomosis 2016; adhesive small bowel obstruction 2017; CT of 10/18/2021 with small bowel obstruction TECHNIQUE: A small bowel examination was performed. Contrast: OTHER: 150 ml of OMNIPAQUE 350 RESULT: On the preliminary film there is an NG tube the tip of which is in the gastric antrum. There are mildly dilated gas-filled loops of small bowel. Bowel melida are present in the pelvis. Contrast reaches the rectosigmoid within 250 minutes. There are non to mildly dilated loops of small bowel. IMPRESSION: RESOLVING SMALL BOWEL OBSTRUCTION. Lokie Engineer: GIO Transcribe Date/Time: Oct 21 2021 2:44P Dictated by : JESSICA ADRIAN MD This examination was interpreted and the report reviewed and electronically signed by: JESSICA ADRIAN MD on Oct 21 2021 2:45PM EST [id number] Normal [facility] CBC panel Auto (Bld)on 10-20 Erythrocyte distribution width (RBC) [Ratio] 14.6 % Normal 11.5-15.0 [facility] Comment on above: Order Comment: Specimen Type: BLOOD SPEC IMEN Ordering Facility: [facility] Address: [address] [place] [address] Performed By: #### 5 8410-2 #### [facility] IA [id number] [address] [place] [address] [place] Hematocrit (Bld) [Volume fraction] 33.4 % Low 36.0-46.0 [facility] Comment on above: Order Comment: Specimen Type: BLOOD SPEC IMEN Ordering Facility: [facility] Address: [address] [place] [address] Performed By: #### 5 8410-2 #### [facility] IA [id number] [address] [place] [address] [place] Hemoglobin (Bld) [Mass/Vol] 10.4 g/dL Low 11.5-15.5 [facility] Comment on above: Order Comment: Specimen Type: BLOOD SPEC IMEN Ordering Facility: [facility] Address: [address] [place] [address] Performed By: #### 5 8410-2 #### [facility] IA [id number] [address] [place] [address] [place] MCH (RBC) [Entitic mass] 29.1 pg Normal 26.0-34.0 [facility] Comment on above: Order Comment: Specimen Type: BLOOD SPEC IMEN Ordering Facility: [facility] Address: [address] [place] [address] Performed By: #### 5 8410-2 #### [facility] CLIA [id number] [address] [place] [address] [place] MCHC (RBC) [Mass/Vol] 31.1 g/dL Normal 30.5-36.0 [facility] Comment on above: Order Comment: Specimen Type: BLOOD SPEC IMEN Ordering Facility: [facility] Address: [address] [place], [place] [address] Performed By: #### 5 8410-2 #### [facility] CLIA [id number] [address] [place] [address] [place] MCV (RBC) [Entitic vol] 93.3 fL Normal 80.0-100.0 [facility] Comment on above: Order Comment: Specimen Type: BLOOD SPEC IMEN Ordering Facility: [facility] Address: [address] [place], [place] [address] Performed By: #### 5 8410-2 #### [facility] CLIA [id number] [address] [place] [address] [place] Nucleated RBC (Bld) [#/Vol] 10*3/uL Normal <0.01 [facility] Comment on above: Order Comment: Specimen Type: BLOOD SPEC IMEN Ordering Facility: [facility] Address: [address] [place], [place] [address] Performed By: #### 5 8410-2 #### [facility] CLIA [id number] [address] [place] [address] [place] Platelet mean volume (Bld) [Entitic vol] 10.7 fL Normal 9.0-12.7 [facility] Comment on above: Order Comment: Specimen Type: BLOOD SPEC IMEN Ordering Facility: [facility] Address: [address] [place], [place] [address] Performed By: #### 5 8410-2 #### [facility] CLIA [id number] [address] [place] [address] [place] Platelets (Bld) [#/Vol] 128 10*3/uL Low 150-400 [facility] Comment on above: Order Comment: Specimen Type: BLOOD SPEC IMEN Ordering Facility: [facility] Address: [address] [place], [place] [address] Performed By: #### 5 8410-2 #### [facility] CLIA [id number] [address] [place] [address] [place] RBC (Bld) [#/Vol] 3.58 10*6/uL Low 3.90-5.20 [facility] Comment on above: Order Comment: Specimen Type: BLOOD SPEC IMEN Ordering Facility: [facility] Address: [address] [place], [place] [address] Performed By: #### 5 8410-2 #### [facility] CLIA [id number] [address] [place] [address] [place] WBC (Bld) [#/Vol] 2.96 10*3/uL Low 3.70-11.00 [facility] Comment on above: Order Comment: Specimen Type: BLOOD SPEC IMEN Ordering Facility: [facility] Address: [address] [place], [place] [address] Performed By: #### 5 8410-2 #### [facility] CLIA [id number] [address] [place] [address] [place] Comprehensive metabolic 2000 panelon 10-20-2021 Albumin [Mass/Vol] 3.7 g/dL Low 3.9-4.9 [facility] Comment on above: Order Comment: Specimen Type: BLOOD SPEC IMEN Ordering Facility: [facility] Address: [address] [place], [place] [address] Performed By: #### 2 777-1, 47556-2, 45328-1 #### [facility] CLIA [id number] [address] [place] [address] [place] ALP [Catalytic activity/Vol] 48 U/L Normal 34-123 [facility] Comment on above: Order Comment: Specimen Type: BLOOD SPEC IMEN Ordering Facility: [facility] Address: [address] [place], [place] [address] Performed By: #### 2 777-1, , #### [facility] CLIA [id number] [address] [place] [address] [place] ALT [Catalytic activity/Vol] 11 U/L Normal 7-38 [facility] Comment on above: Order Comment: Specimen Type: BLOOD SPEC IMEN Ordering Facility: [facility] Address: [address] [place], [place] [address] Performed By: #### 2 777-1, , #### [facility] CLIA [id number] [address] [place] [address] [place] Anion gap [Moles/Vol] 14 mmol/L Normal 9-18 [facility] Comment on above: Order Comment: Specimen Type: BLOOD SPEC IMEN Ordering Facility: [facility] Address: [address] [place], [place] [address] Performed By: #### 2 777-1, , #### [facility] CLIA [id number] [address] [place] [address] [place] AST [Catalytic activity/Vol] 16 U/L Normal 13-35 [facility] Comment on above: Order Comment: Specimen Type: BLOOD SPEC IMEN Ordering Facility: [facility] Address: [address] [place], [place] [address] Performed By: #### 2 777-1, , #### [facility] CLIA [id number] [address] [place] [address] [place] Bilirubin [Mass/Vol] 0.6 mg/dL Normal 0.2-1.3 [facility] Comment on above: Order Comment: Specimen Type: BLOOD SPEC IMEN Ordering Facility: [facility] Address: [address] [place], [place] [phone] Performed By: #### 2 777-1, , #### [facility] CLIA [id number] [address] [place] [address] [place] Calcium [Mass/Vol] 8.8 mg/dL Normal 8.5-10.2 [facility] Comment on above: Order Comment: Specimen Type: BLOOD SPEC IMEN Ordering Facility: [facility] Address: [address] [place] [address] Performed By: #### 2 777-1, , #### [facility] CLIA [id number] [address] [place] [address] [place] Chloride [Moles/Vol] 104 mmol/L Normal 97-105 [facility] Comment on above: Order Comment: Specimen Type: BLOOD SPEC IMEN Ordering Facility: [facility] Address: [address] [place], [place] [id number] Performed By: #### 2 777-1, , #### [facility] CLIA [id number] [address] [place] [address] [place] CO2 [Moles/Vol] 24 mmol/L Normal 22-30 [facility] Comment on above: Order Comment: Specimen Type: BLOOD SPEC IMEN Ordering Facility: [facility] Address: [address] [place], [place] [phone] Performed By: #### 2 777-1, , #### [facility] CLIA [id number] [address] [place] [address] [place] Creatinine [Mass/Vol] 0.56 mg/dL Low 0.58-0.96 [facility] Comment on above: Order Comment: Specimen Type: BLOOD SPEC IMEN Ordering Facility: [facility] Address: [address] [place] [phone] Performed By: #### 2 777-1, 01172-8, 44445-8 #### [facility] CLIA [id number] [address] [place] [address] [place] ESTIMATED GLOMERULAR FILTRATION RATE 101 mL/min/1.73m??? Normal >=60 [facility] Comment on above: Order Comment: Specimen Type: BLOOD SPEC IMEN Ordering Facility: [facility] Address: [address] [place], [place] [phone] Result Comment: Humaira mated Glomerular Filtration Rate (eGFR) is calculated using the 2020 CKD-EPI creatinine equation. This equation utilizes serum creatinine, sex, and age as parameters. The creatinine assay has traceable calibration to isotope dilution-mass spectrometry. Refer to KDIGO guidelines for clinical interpretation. In patients with unstable renal function, e.g. those with acute kidney injury, the eGFR may not accurately reflect actual GFR. Performed By: #### 2 777-1, 71795-4, 70025-1 #### [facility] CLIA [id number] [address] [place] [address] [place] Glucose [Mass/Vol] 100 mg/dL High 74-99 [facility] Comment on above: Order Comment: Specimen Type: BLOOD SPEC IMEN Ordering Facility: [facility] Address: [address] [place], [place] [phone] Result Comment: The [place] [employer] (ADA) provides guidance for cutoff values for fasting glucose and random glucose. The ADA defines fasting as no caloric intake for at least 8 hours. Fasting plasma glucose results between 100 to 125 mg/dL indicate increased risk for diabetes (prediabetes). Fasting plasma glucose results greater than or equal to 126 mg/dL meet the criteria for diagnosis of diabetes. In the absence of unequivocal hyperglycemia, results should be confirmed by repeat testing. In a patient with classic symptoms of hyperglycemia or hyperglycemic crisis, random plasma glucose results greater than or equal to 200 mg/dL meet the criteria for diagnosis of diabetes. Reference: Standards of Medical Care in Diabetes 2016, [place] [employer]. Diabetes Care. 2016.39(Suppl 1). Performed By: #### 2 777-1, , #### [facility] CLIA [id number] [address] [place] [address] [place] Potassium [Moles/Vol] 2.7 mmol/L Low 3.7-5.1 [facility] Comment on above: Order Comment: Specimen Type: BLOOD SPEC IMEN Ordering Facility: [facility] Address: [address] [place], [place] [phone] Performed By: #### 2 777-1, , #### [facility] CLIA [id number] [address] [place] [address] [place] Protein [Mass/Vol] 6.0 g/dL Low 6.3-8.0 [facility] Comment on above: Order Comment: Specimen Type: BLOOD SPEC IMEN Ordering Facility: [facility] Address: [address] [place], [place] [phone] Performed By: #### 2 777-1, , #### [facility] CLIA [id number] [address] [place] [address] [place] Sodium [Moles/Vol] 142 mmol/L Normal 136-144 [facility] Comment on above: Order Comment: Specimen Type: BLOOD SPEC IMEN Ordering Facility: [facility] Address: [address] [place], [place] [phone] Performed By: #### 2 777-1, , #### [facility] CLIA [id number] [address] [place] [address] [place] Urea nitrogen [Mass/Vol] 12 mg/dL Normal 7-21 [facility] Comment on above: Order Comment: Specimen Type: BLOOD SPEC IMEN Ordering Facility: [facility] Address: [address] [place], [place] [phone] Performed By: #### 2 777-1, , #### [facility] CLIA [id number] [address] [place] [address] [place] Lactate (Bld) [Moles/Vol]on 10-20-2021 Lactate [Moles/Vol] 0.5 mmol/L Normal 0.5-2.2 [facility] Comment on above: Order Comment: Specimen Type: BLOOD SPEC IMEN Ordering Facility: [facility] Address: [address] [place] [address] Performed By: #### 2 777-1, , #### [facility] CLIA [id number] [address] [place] [address] [place] Magnesium SerPl-mCncon 10-20 Magnesium [Mass/Vol] 2.0 mg/dL Normal 1.7-2.3 [facility] Comment on above: Order Comment: Specimen Type: BLOOD SPEC IMEN Ordering Facility: [facility] Address: [address] [place] [address] Performed By: #### 2 777-1, , #### [facility] CLIA [id number] [address] [place] [address] [place] PT panel Coag (PPP)on 2021 INR Coag (PPP) [Relative time] 1.1 {INR} Normal 0.9-1.3 [facility] Comment on above: Order Comment: Specimen Type: BLOOD SPEC IMEN Ordering Facility: [facility] Address: [address] [place] [address] Result Comment: Rosalind min K Antagonist (VKA) Therapeutic Range: INR 2 to 3 (Target INR of 2.5) Note: For patients treated with VKA drugs, such as warfarin, the [place] [employer] 2012 Guideline recommends a therapeutic INR range of 2 to 3 (target INR of 2.5). This recommendation includes high-risk patients with antiphospholipid syndrome with previous arterial or venous thromboembolism, current-generation mechanical or bioprosthetic aortic heart valve replacement. Note: Patients with mechanical aortic valve replacement and additional risk factors for thromboembolic events (atrial fibrillation, previous thromboembolism, LV dysfunction, hypercoagulable conditions) or an older generation mechanical AVR (i.e., ball in-Cage) or any mechanical MVR should have a INR therapeutic range of 2.5 to 3.5 (target INR of 3). Dinesh GH, et al. Chest 2012, 141:7S-47S Nadeen RA, et al. [facility] 2017, 70: 252-289 Performed By: #### 2 777-1, 15158-2, 30669-9 #### [facility] CLIA [id number] [address] [place] [address] [place] PT Coag (PPP) [Time] 11.9 s Normal 9.7-13.0 [facility] Comment on above: Order Comment: Specimen Type: BLOOD SPEC IMEN Ordering Facility: [facility] Address: [address] [place] [address] Performed By: #### 2 777-1, 81914-4, 78942-9 #### [facility] IA [id number] [address] [place] [address] [place] Phosphate [facility] Phosphate [Mass/Vol] 2.0 mg/dL Low 2.7-4.8 [facility] Comment on above: Order Comment: Specimen Type: BLOOD SPEC IMEN Ordering Facility: [facility] Address: [address] [place] [address] Performed By: #### 2 777-1, 39231-4, 11970-9 #### [facility] IA [id number] [address] [place] [address] [place] SARS-CoV-2 RNA Resp Ql [facility] SARS-CoV-2 (COVID-19) RNA BOBO+probe Ql (Resp) COVID 19 RESULT: SARS-CoV-2 (Agent of COVID-19) Not Detected by RT-PCR or equivalent method. This test has been authorized by FDA under an Emergency Use Authorization (EUA). Normal [facility] Comment on above: Performed By: #### 2777-1, 57188-5, 2432 1-2 #### [facility] CLIA [id number] [address] [place] [address] [place] TYPE + SCREENon 10-20-2021 ABO A Normal [facility] Comment on above: Order Comment: Specimen Type: BLOOD SPEC IMEN Ordering Facility: [facility] Address: [address] [place] [address] Performed By: #### T SCR #### [facility] CLIA [id number] [address] [place] [address] [place] HISTORICAL AB SCR STATUS Negative Normal [facility] Comment on above: Order Comment: Specimen Type: BLOOD SPEC IMEN Ordering Facility: [facility] Address: [address] [place] [address] Performed By: #### T SCR #### [facility] CLIA [id number] [address] [place] [address] [place] Rh Nom (Bld) Negative Normal [facility] Comment on above: Order Comment: Specimen Type: BLOOD SPEC IMEN Ordering Facility: [facility] Address: [address] [place] [address] Performed By: #### T SCR #### [facility] CLIA [id number] [address] [place] [address] [place] TYPE AND SCREEN EXPIRATION 10/22/2021 23:59 Normal [facility] Comment on above: Order Comment: Specimen Type: BLOOD SPEC IMEN Ordering Facility: [facility] Address: [address] [place] [address] Performed By: #### T SCR #### [facility] CLIA [id number] [address] [place] [address] [place] aPTT PPPon 10-20-2021 aPTT Coag (PPP) [Time] 26.6 s Normal 23.0-32.4 [facility] Comment on above: Order Comment: Specimen Type: BLOOD SPEC IMEN Ordering Facility: [facility] Address: [address] [place], [place] [phone] Performed By: #### 2 777-1, 89206-5, 32819-4 #### [facility] CLIA [id number] [address] [place] [address] [facility] HISTORY PHYSICALon HISTORY PHYSICAL HNO ID: [id number] Author: [place]ia Gilmore MD Service: General Surgery Author Type: Resident Type: HANDP Filed: 10/19/2021 6:50 PM Note Text: Attestation signed by Rahat Bowie MD at 10/21/2021 6:54 AM I evaluated the patient. I discussed the case with the resident/fellow and agree with the findings and plan as documented in the resident/fellow?s note GENERAL/BARIATRIC SURGERY HISTORY AND PHYSICAL Subjective CHIEF COMPLAINT: concern for SBO HPI: This is a 66 year old female who presents as transfer [facility] for concern for SBO. She has hx of lap total colectomy with ileorectal anastomosis in 2016 and laparoscopic JOHNY for SBO from internal hernia in 2017. 4 days ago she experienced severe pain and biliious, nonbloody emesis and subsequently the same day went to the [facility] emergency room. A CT scan was done that day which revealed SBO (images uploaded). She has been waiting to be transferred to [facility] since then. Since presenting to [facility] hospital on day 1 of her symptomology, she has not had further emesis and has had decreased pain, presumably because of the nausea and pain medications she was getting, in her words. She has had one bowel movement during this time which was last night, and is passing a small amount of flatus. The patient states she usually has multiple brown stools per day at baseline. She has been afebrile and without systemic symptoms during this period. She states she takes suboxone for arthritis pain. REVIEW OF SYSTEMS: GENERAL: No weight loss, malaise or fevers. SEE HPI. HEENT: Negative for frequent or significant headaches. NECK: Negative for pain and significant neck swelling. RESPIRATORY: Negative for cough, wheezing or shortness of breath. CARDIOVASCULAR: Negative for chest pain, leg swelling. GI: Negative for abdominal discomfort, change in bowel habits, hematochezia, melena, nausea, vomiting. : No history of dysuria. MUSCULOSKELETAL: Negative for new joint pain. SKIN: Negative for new lesions. PSYCH: Negative. HEMATOLOGY/LYMPHOLOGY: Negative for prolonged bleeding. NEURO: No new headaches. All other reviewed and negative other than HPI. PAST MEDICAL HISTORY Diagnosis Date - Acid reflux - Alcohol abuse Bottle of wine daily - Arthritis - Carotid stenosis medical management - COPD (chronic obstructive pulmonary disease) (HCC) mild obstruction on PFT's 09/2013 - Former smoker 10 pack years, quit 2003 - High cholesterol - History of rheumatic fever - Hypertension - PUD (peptic ulcer disease) 02/2014 - Small bowel obstruction (HCC) - Tachycardia - Ulcer (HCC) - Vertigo PAST SURGICAL HISTORY Procedure Laterality Date - COLONOSCOPY - LAP TOTAL COLECTOMY W/O PROCT. N/A 09/19/2015 Lap total colectomy with ileorectal anastomosis - LAPAROSCOPY DIAGNOSTIC 01/09/2017 - LYSIS OF ADHESIONS 01/09/2017 - MIDLINE INSERTION/CONSULT 08/10/2015 - REMOVE TONSILS/ADENOIDS,<12 Y/O as child - SINUS SURGERY HX age 35 - TUBAL LIGATION HX age 19 FAMILY HISTORY Problem Relation Age of Onset - Heart Mother - Heart Father - Lipids Father - Diabetes Father - Hypertension Mother - Arthritis Sister Social History Tobacco Use - Smoking status: Former Smoker Packs/day: 0.50 Years: 20.00 Pack years: 10.00 Types: Cigarettes Quit date: 07/27/2003 Years since quittin.2 - Smokeless tobacco: Never Used Substance Use Topics - Alcohol use: Yes Comment: drinks a bottle of wine daily; sometimes more - Drug use: No MEDICATIONS: spironolactone (ALDACTONE) 100 mg tablet, Take 1 tablet by mouth once daily., Disp: 7 tablet, Rfl: 0 acetaminophen (TYLENOL) 325 mg tablet, Take 2 tablets by mouth every 6 hours., Disp: , Rfl: 0 docusate sodium (COLACE) 100 mg capsule, Take 1 capsule by mouth twice daily., Disp: 30 capsule, Rfl: 1 magnesium hydroxide (MOM) 400 mg/5 mL suspension, Take 30 mL by mouth twice daily., Disp: 1800 mL, Rfl: 1 amitriptyline (ELAVIL) 25 mg tablet, Take 25 mg by mouth daily at bedtime., Disp: , Rfl: celecoxib (CELEBREX) 200 mg capsule, Take 200 mg by mouth once daily., Disp: , Rfl: hydroCHLOROthiazide (HYDRODIURIL, ESIDRIX) 25 mg tablet, Take 25 mg by mouth once daily., Disp: , Rfl: HYDROcodone-acetaminophen (NORCO) 5-325 mg per tablet, Take 1 tablet by mouth every 8 hours as needed for Pain., Disp: , Rfl: meloxicam (MOBIC) 15 mg tablet, Take 15 mg by mouth once daily., Disp: , Rfl: rOPINIRole (REQUIP) 2 mg tablet, Take 2 mg by mouth daily at bedtime., Disp: , Rfl: febuxostat (ULORIC) 40 mg tab, Take by mouth once daily., Disp: , Rfl: albuterol HFA (VENTOLIN HFA) 90 mcg/actuation inhaler, Inhale 2 Puffs as instructed every 6 hours as needed for Wheezing/Shortness of Breath., Disp: , Rfl: atorvastatin (LIPITOR) 10 mg tablet, (more content not included)... Normal [facility] XR ABDOMEN 1V SUPINEon 10-19 XR ABDOMEN 1V SUPINE * * *Final Report* * * DATE OF EXAM: Oct 19 2021 6:25PM ARIES 5289 - XR ABDOMEN 1V SUPINE / PROCEDURE REASON: Evaluate tube, line or lead position * * * * Physician Interpretation * * * * XR ABDOMEN 1V SUPINE HISTORY: Evaluate tube, line or lead position TECHNIQUE: Supine abdomen (1 view), 2 image(s) with postprocessing COMPARISON: CT abdomen and pelvis 10/18/2021 RESULT: See impression. IMPRESSION: NG/OG tube tip likely in the gastric body with side-port below the diaphragm. Gas-filled mildly dilated loops of small bowel, in keeping with bowel obstruction seen on prior CT. Degenerative changes and dextroscoliosis of the spine. Lokie Engineer: PSCB Transcribe Date/Time: Oct 19 2021 7:02P Dictated by : JAN HOLLIDAY MD This examination was interpreted and the report reviewed and electronically signed by: JAN HOLLIDAY MD on Oct 19 2021 7:04PM EST [id number] Normal [facility] AMYLASEon 10-18-2021 Amylase [Catalytic activity/Vol] 46 U/L Normal 25-115 [facility] Comment on above: Performed By: #### DAVID, CMADM, LIPA, CMP #### [facility] [address] [address] [address] Rashida Carcamo CARDIAC JESSICA ADMITon 022 CK [Catalytic activity/Vol] 155 U/L Normal 26-192 [facility] Comment on above: Performed By: #### DAVID, CMADM, LIPA, CMP #### [facility] [address] [address] [address] Rashida Carcamo CK.MB [Mass/Vol] 0.64 ng/mL Normal <=3.60 [facility] Comment on above: Performed By: #### DAVID, CMADM, LIPA, CMP #### [facility] [address] [address] [address] Rashida Carcamo HSTROP <4.0 Normal 4.0-51.3 [facility] Comment on above: Result Comment: CUT-OFF POINTS HAVE BEEN ESTABLISHED BASED ON THE FOURTH UNIVERSAL DEFINITIONS OF MYOCARDIAL INFARCTION. THE UPPER REFERENCE LIMIT (URL) OF TROPONIN, DEFINED THE 99TH PERCENTILE OF cTnI DISTRIBUTION IN A REFERENCE POPULATION, HAS BEEN CONFIRMED THE DECISION THRESHOLD FOR [place] DIAGNOSIS. Performed By: #### A MY, CMADM, LIPA, CMP #### [facility] [address] [place] [address] Dr. Rashida Carcamo ADRIANA 49 ng/mL Normal 9-82 [facility] Comment on above: Performed By: #### DAVID, CMADM, LIPA, CMP #### [facility] [address] [place] [address] Dr. Rashida Carcamo CBC W MANUAL DIFFon 10-19-19 22 ATYPICAL LYMPH # Normal [facility] Comment on above: Performed By: #### CBCMAN #### [facility] [address] [place] [address] Dr. Rashida Carcamo ATYPICAL LYMPH % Normal [facility] Comment on above: Performed By: #### CBCMAN #### [facility] [address] [place] [address] Dr. Rashida Carcamo BAND # 0.1 103/ul Normal 0.0-0.3 [facility] Comment on above: Performed By: #### CBCMAN #### [facility] [address] [place] [address] Dr. Rashida Carcamo BAND % 1 % Normal 0-5 [facility] Comment on above: Performed By: #### CBCMAN #### [facility] [address] [place] [address] Dr. Rashida Carcamo BASOM # 0.00 103/ul Normal 0.00-0.10 [facility] Comment on above: Performed By: #### CBCMAN #### [facility] [address] [place] [address] Dr. Rashida Carcamo BASOM % 0.0 % Critically low 0.2-2.0 [facility] Comment on above: Performed By: #### CBCMAN #### [facility] [address] [place] [address] Dr. Rashida Carcamo BLAST # Normal [facility] Comment on above: Performed By: #### CBCMAN #### [facility] [address] [place] [address] Dr. Rashida Carcamo BLAST % Normal [facility] Comment on above: Performed By: #### CBCMAN #### [facility] [address] [place] [address] Dr. Rashida Carcamo CORRECTED WBC Normal 4.0-11.0 [facility] Comment on above: Performed By: #### CBCMAN #### [facility] [address] [place] [address] Dr. Rashida Carcamo EOS # 0.00 103/ul Normal 0.00-0.70 [facility] Comment on above: Performed By: #### CBCMAN #### [facility] [address] [place] [address] Dr. Rashida Carcamo EOS% 0.0 % Critically low 0.9-7.0 [facility] Comment on above: Performed By: #### CBCMAN #### [facility] [address] [place] [address] Dr. Rashida Carcamo HCT 44.6 % Normal 36.0-48.0 [facility] Comment on above: Performed By: #### CBCBONY #### [facility] [address] [place] [address] Dr. Rashida Carcamo HGB 14.4 g/dl Normal 12.0-16.0 [facility] Comment on above: Performed By: #### CBCBONY #### [facility] [address] [place] [address] Dr. Rashida Carcamo LYMPHM # 1.23 103/ul Normal 1.20-3.80 [facility] Comment on above: Performed By: #### CBCBONY #### [facility] [address] [place] [address] Dr. Rashida Carcamo LYMPHM% 15.0 % Critically low 20.5-60.0 [facility] Comment on above: Performed By: #### CBCBONY #### [facility] [address] [place] [address] Dr. Rashida Carcamo MCH 29.0 pg Normal 26.7-34.0 [facility] Comment on above: Performed By: #### CBCMAN #### [facility] [address] [place] [address] Dr. Rashida Carcamo MCHC 32.3 g/dl Normal 29.9-35.2 [facility] Comment on above: Performed By: #### CBCBONY #### [facility] [address] [address] [address] Rashida Carcamo MCV 89.9 fL Normal 81.0-99.0 [facility] Comment on above: Performed By: #### CBCBONY #### [facility] [address] [place] [address] Dr. Rashida Carcamo METAMYELOCYTE # Normal [facility] Comment on above: Performed By: #### CBCBONY #### [facility] [address] [address] [address] Rashida Carcamo METAMYELOCYTE % Normal [facility] Comment on above: Performed By: #### CBCBONY #### [facility] [address] [place] [address] Dr. Rashida Carcamo MONOM# 0.25 103/ul Critically low 0.30-0.80 [facility] Comment on above: Performed By: #### CBCBONY #### [facility] [address] [place] [address] Dr. Rashida Carcamo MONOM% 3.0 % Normal 1.7-12.0 [facility] Comment on above: Performed By: #### CBCBONY #### [facility] [address] [place] [address] Dr. Rashida Carcamo MPV 10.9 fL Normal 9.5-13.5 [facility] Comment on above: Performed By: #### CBCBONY #### [facility] [address] [place] [address] Dr. Rashida Carcamo MYELOCYTE # Normal [facility] Comment on above: Performed By: #### CBCBONY #### [facility] [address] [place] [address] Dr. Rashida Carcamo MYELOCYTE % Normal [facility] Comment on above: Performed By: #### CBCBONY #### [facility] [address] [place] [address] Dr. Rashida Carcamo NRBC Normal [facility] Comment on above: Performed By: #### CBCBONY #### [facility] [address] [place] [address] Dr. Rashida Carcamo PLT 172 103/ul Normal 150-450 [facility] Comment on above: Performed By: #### CBCBONY #### [facility] [address] [address] [address] Rashida Carcamo RBC 4.96 106/ul Normal 4.20-5.40 [facility] Comment on above: Performed By: #### CBCBONY #### [facility] [address] [address] [address] Rashida Carcamo RDW 14.4 % Normal 11.0-15.0 [facility] Comment on above: Performed By: #### CBCBONY #### [facility] [address] [address] [address] Rashida Carcamo SEG # 6.64 103/ul Critically high 1.40-6.50 [facility] Comment on above: Performed By: #### CBCBONY #### [facility] [address] [place] [address] Dr. Rashida Carcamo SEG % 81.0 % Critically high 43.0-75.0 [facility] Comment on above: Performed By: #### CBCBONY #### [facility] [address] [address] [address] Rashida Carcamo WBC 8.2 103/ul Normal 4.0-11.0 [facility] Comment on above: Performed By: #### CBCBONY #### [facility] [address] [place] [address] ABD/PELV W CONon 10-19-19 CT ABD/PELV W CON EXAM: CT ABD/PELV W CON 10/18/2021 4:22 AM EDT OH001 CLINICAL STATEMENT: GENERALIZED ABDOMINAL PAIN COMPARISON: No prior studies are available at the time of dictation. TECHNIQUE: Helically acquired images were obtained of the abdomen and pelvis following 100 cc of Omnipaque 300 IV contrast. No oral contrast was administered. AEC is utilized. 2-D reconstructed images are provided. FINDINGS: The gallbladder is unremarkable. The upper abdominal solid organs are unremarkable. Multiple fluid-filled dilated loops of small bowel transient point in the pelvis suggesting high-grade mechanical small bowel obstruction. Multiple surgical changes small bowel. There is no free air. There is no ascites. There is no evidence of aortic aneurysm or dissection. Atherosclerotic aortoiliac calcifications. The celiac artery, superior mesenteric artery, and superior mesenteric vein are grossly patent. There is no retroperitoneal adenopathy. There is no appendicitis or diverticulitis. There are no pelvic masses or loculated fluid collections. Uterus and bladder unremarkable. The lung bases are clear. Multilevel degenerative changes of the lumbosacral spine with scoliosis. There are no destructive bone lesions identified. IMPRESSION: Multiple fluid-filled dilated loops of small bowel transient point in the pelvis suggesting high-grade mechanical small bowel obstruction. FOLLOW-UP: Follow-up as clinically indicated. Electronically authenticated by: BRIEN SAID Date: 2021-10-18 06:24 Normal [facility] Covid-19 PCR (CVDTBH)on 09-26 SARS-CoV-2 (COVID-19) RNA BOBO+probe Ql (Unsp spec) Not detected Normal NOT DETECTED [facility] Comment on above: Result Comment: When diagnostic testing is negative, the possibility of a false negative should be considered in the context of a patient's recent exposures and the presence of clinical signs and symptoms consistent with SARS-CoV-2. This test is not yet approved or cleared by the [place] FDA. When there are no FDA-approved or cleared tests available, and other criteria are met, FDA can make tests available under an emergency access mechanism called an Emergency Use Authorization (EUA). The EUA for this test is supported by the Adult Services Librarian of Health and Human Service's declaration that circumstances exist to justify the emergency use of in vitro diagnostics for the detection and/or diagnosis of the virus that causes COVID-19. This EUA will remain in effect for the duration of the COVID-19 declaration justifying emergency of IVDs, unless it is terminated or revoked by the FDA (after which the test may no longer be used). Performed By: #### C VDTBH ####[facility] [id number], [place] [id number]. Rashida Carcamo ER URINE PROFILEon 2 Bilirubin Ql (U) Negative Normal NEGATIVE [facility] Comment on above: Performed By: #### ERUR #### [facility] [address], [place] [address] Dr. Rashida Carcamo Clarity (U) SL CLOUDY Abnormal CLEAR [facility] Comment on above: Performed By: #### ERUR #### [facility] [address] [place] [address] Dr. Rashida Carcamo Color (U) LT. YELLOW Normal YELLOW [facility] Comment on above: Performed By: #### ERUR #### [facility] [address] [place] [address] Dr. Rashida Carcamo ERUAHD A micrscopic examina tion will be performed if indicated. Normal [facility] Comment on above: Performed By: #### ERUR #### [facility] [address] [place] [address] Dr. Rashida Carcamo Glucose Ql (U) Negative Normal NEGATIVE [facility] Comment on above: Performed By: #### ERUR #### [facility] [address] [place] [address] Dr. Rashida Carcamo Hemoglobin Ql (U) Negative Normal NEGATIVE [facility] Comment on above: Performed By: #### ERUR #### [facility] [address] [place] [address] Dr. Rashida Carcamo Ketones Ql (U) 40 mg/dl Abnormal NEGATIVE [facility] Comment on above: Performed By: #### ERUR #### [facility] [address] [place] [address] Dr. Rashida Carcamo LEUKOCYTES Negative Normal NEGATIVE [facility] Comment on above: Performed By: #### ERUR #### [facility] [address] [place] [address] Dr. Rashida Carcamo Nitrite Ql (U) Negative Normal NEGATIVE [facility] Comment on above: Performed By: #### ERUR #### [facility] [address] [place] [address] Dr. Rashida Carcamo pH (U) 8.0 [pH] Normal 5-9 [facility] Comment on above: Performed By: #### ERUR #### [facility] [address] [place] [address] Dr. Rashida Carcamo SPEC GRAVITY 1.015 Normal 1.005-<=1.0 25 [facility] Comment on above: Performed By: #### ERUR #### [facility] [address] [place] [address] Dr. Rashida Carcamo UA PROTEIN Negative Normal NEGATIVE/ TRACE [facility] Comment on above: Performed By: #### ERUR #### [facility] [address] [place] [address] Dr. Rashida Carcamo UR MICRO IND NOT INDICATED Normal [facility] Comment on above: Performed By: #### ERUR #### [facility] [address] [place] [address] Dr. Rashida Carcamo Urobilinogen Qn (U) 0.2 {Lorna'U}/dL Normal 0.2 - 1.0 [facility] Comment on above: Performed By: #### ERUR #### [facility] [address] [place] [address] Dr. Rashida Carcamo LACTATE/LACTIC ACIDon 2021 Lactate [Moles/Vol] 1.3 mmol/L Normal 0.4-1.9 [facility] Comment on above: Performed By: #### LACT #### [facility] [address] [place] [address] Dr. Rashida Carcamo LIPASEon 10-18-2021 Lipase [Catalytic activity/Vol] 127.0 U/L Normal 73.0-393.0 [facility] Comment on above: Performed By: #### DAVID, CMADM, LIPA, CMP #### [facility] [address] [place] [address] Dr. Rashida Carcamo PROF 14(COMP METB)on 022 Albumin [Mass/Vol] 4.5 g/dL Normal 3.4-5.0 [facility] Comment on above: Performed By: #### DAVID, CMADM, LIPA, CMP #### [facility] [address] [place] [address] Dr. Rashida Carcamo Albumin/Globulin [Mass ratio] 1.2 {ratio} Normal [facility] Comment on above: Performed By: #### DAVID, CMADM, LIPA, CMP #### [facility] [address] [place] [address] Dr. Rashida Carcamo ALP [Catalytic activity/Vol] 67 U/L Normal 46-116 [facility] Comment on above: Performed By: #### DAVID, CMADM, LIPA, CMP #### [facility] [address] [address] [address] Rashida Carcamo ALT [Catalytic activity/Vol] 29 U/L Normal 14-59 [facility] Comment on above: Performed By: #### DAVID, CMADM, LIPA, CMP #### [facility] [address] [address] [address] Rashida Carcamo Anion gap [Moles/Vol] 14.1 mmol/L Normal [facility] Comment on above: Performed By: #### DAVID, CMADM, LIPA, CMP #### [facility] [address] [place] [address] Dr. Rashida Carcamo AST [Catalytic activity/Vol] 31 U/L Normal 15-37 [facility] Comment on above: Performed By: #### DAVID, CMADM, LIPA, CMP #### [facility] [address] [place] [address] Dr. Rashida Carcamo Bilirubin [Mass/Vol] 0.8 mg/dL Normal 0.2-1.0 [facility] Comment on above: Performed By: #### DAVID, CMADM, LIPA, CMP #### [facility] [address] [place] [address] Dr. Rashida Carcamo Calcium [Mass/Vol] 10.2 mg/dL Critically high 8.5-10.1 [facility] Comment on above: Performed By: #### DAVID, CMADM, LIPA, CMP #### [facility] [address] [place] [address] Dr. Rashida Carcamo Chloride [Moles/Vol] 100 mmol/L Normal 98-107 [facility] Comment on above: Performed By: #### DAVID, CMADM, LIPA, CMP #### [facility] [address] [address] [address] Rashida Carcamo CO2 [Moles/Vol] 29.4 mmol/L Normal 21.0-32.0 [facility] Comment on above: Performed By: #### DAVID, CMADM, LIPA, CMP #### [facility] [address] [address] [address] Rashida Carcamo Creatinine [Mass/Vol] 0.70 mg/dL Normal 0.55-1.02 [facility] Comment on above: Performed By: #### DAVID, CMADM, LIPA, CMP #### [facility] [address] [address] [address] Rashida Carcamo EGFR-AF SLOVAK >60 Normal >=60 [facility] Comment on above: Performed By: #### DAVID, CMADM, LIPA, CMP #### [facility] [address] [address] [address] Rashida Carcamo EGFR-NON AF SLOVAK >60 Normal >=60 [facility] Comment on above: Performed By: #### DAVID, CMADM, LIPA, CMP #### [facility] [address] [place] [address] Dr. Rashida Carcamo Globulin (S) [Mass/Vol] 3.9 g/dL Normal [facility] Comment on above: Performed By: #### DAVID, CMADM, LIPA, CMP #### [facility] [address] [address] [address] Rashida Carcamo Glucose [Mass/Vol] 164 mg/dL Critically high 74-106 [facility] Comment on above: Performed By: #### DAVID, CMADM, LIPA, CMP #### [facility] [address] [address] [address] Rashida Carcamo Potassium [Moles/Vol] 3.5 mmol/L Normal 3.5-5.1 [facility] Comment on above: Performed By: #### DAVID, CMADM, LIPA, CMP #### [facility] [address] [address] [address] Rashida Carcamo Protein [Mass/Vol] 8.4 g/dL Critically high 6.4-8.2 [facility] Comment on above: Performed By: #### DAVID, CMADM, LIPA, CMP #### [facility] [address] [place] [address] Dr. Rashida Carcamo Sodium [Moles/Vol] 140 mmol/L Normal 136-145 [facility] Comment on above: Performed By: #### DAVID, CMADM, LIPA, CMP #### [facility] [address] [address] [address] Rashida Carcamo Urea nitrogen [Mass/Vol] 24.0 mg/dL Critically high 7.0-18.0 [facility] Comment on above: Performed By: #### DAVID, CMADM, LIPA, CMP #### [facility] [address] [address] [address] Rashida Carcamo Urea nitrogen/Creatin ine [Mass ratio] 34.3 mg/mg Normal [facility] Comment on above: Performed By: #### DAVID, CMADM, LIPA, CMP #### [facility] [address] [address] [address] Rashida Carcamo XR FOOT KARLOS MIN 3 VIEWSon XR FOOT KARLOS MIN 3 VIEWS EXAMINATION: XR FOOT KARLOS MIN 3 VIEWS HISTORY: Pain in both feet COMPARISON: XR foot right 06/25/2021, XR foot left 12/13/2020 FINDINGS: RIGHT FINDINGS: BONES: Mechanical fusion of the first metatarsophalangeal joint via dorsal plate and screws. Resection of the heads of the second through fifth proximal phalanges. Suspect bunionectomy along the lateral margin of the fifth metatarsal head. No bone fracture dislocation. Mild degenerative changes of the midfoot. SOFT TISSUES: No visible soft tissue swelling. OTHER: Negative. LEFT FINDINGS: BONES: Mechanical fusion of the first metatarsophalangeal joint via dorsal plate and screws. Resection of the heads of the second through fourth phalanges, possibly the fifth proximal phalanx. SOFT TISSUES: No visible soft tissue swelling. OTHER: Negative. IMPRESSION: RIGHT CONCLUSION: 1. Stable surgical changes without evidence of hardware failure or change in alignment. LEFT CONCLUSION: 1. Stable surgical changes without evidence of hardware failure or change in alignment. Electronically authenticated by: ISAIAH ROJAS Date: 2021-08-06 12:00 Normal [facility] CASE MANAGEMon 01-13-2017 CASE MANAGEM HNO ID: [id number] thor: Samanta RennerRn) Prashanth, RNService: Care ManagementAuthor Type: Registered NurseType: Care Mgt Progress NoteFiled: 01/13/2017 11:46 AMNote Text:MULTIDISCIPLINARY ROUNDSSERVICE DATE: 01/13/2017 ADMISSION DATE: 01/08/2017SERVICE TIME: 11:43 AM ANTICIPATED D/C DATE: 01/13/2017Problem List:ACTIVE PROBLEM LISTIron Deficiency AnemiaPud (Peptic Ulcer Disease)Carotid StenosisVertigoTachycardiaBpv (Benign Positional Vertigo)Hld (Hyperlipidaemia)Rectal BleedingExertional DyspneaEmphysema of Lung (Hcc)Alcohol AbuseStatus Post SurgerySbo (Small Bowel Obstruction) ([facility])Attendees Present at Rounds:Furnace Combination Analyst: Alison ALFONSO ACMNurse Clinical Researcher: Marlena Santana Nurse: Laura Discussed on Rounds:Discharge NeedsAnticipated Discharge Disposition:Home/Self CareLast Vitals: BP 126/71 Pulse 65 Temp (Src) 97.9 (Oral) Resp 16 Ht5' 1 (1.55m) Wt 141 lb 6.4 oz (64.1kg) SpO2 95% BMI 26.73 kg/(m2).Nursing: Pain Intervention(s) Plan: Review Current Medication and MedicationHistory and Administer Medications as Ordered;Pain Assessment, Management,Reassessment Per Scoring Tool;Provide Quiet and Restful Environment;NotifyLIP for Changes to Baseline StatusPain Goals/Outcomes: Decrease in Pain Level per Scoring Tool;ExhibitsIncreased Interest and Assume Responsibility for Patient's Own/FamilyLearning by Beginning to Look for Information and Ask Questions;PatientVerbalizes Acceptable Level of Comfort and is Able to Carry Out Activitiesof Daily LivingPain Goal Target Achievement Date: 01/15/17Safety Intervention(s) Plan: Ensure Safe Positioning;Employ Safe HandlingTechniques;Fall Risk Assessment and Prevention;Employ Safe Mobility;IDBand Patient/Family;Maintain a Safe Environment;Review Current Medicationand Medication History and Administer Medications as Ordered;Notify LIPfor Changes to Baseline StatusSafety Goals/Outcomes: Maintain Patient Safety;Exhibits Increased Interestand Assume Responsibility for Patient's Own/Family Learning by Beginningto Look for Information and Ask QuestionsSafety Goal Target Achievement Date: 01/15/17DOCUMENTED BY: Samanta Alford RN PATIENT NAME: Sofie AdrianDATE: January 13, 2017 : 11:43 AM CSN: [id number] [facility] HNO ID: [id number] thor: Natasha (Sidehand) Avery Yune: General SurgeryAuthor Type: Nurse PractitionerType: Discharge SummariesFiled: 01/13/2017 1:38 PMNote Text:DISCHARGE SUMMARYPATIENT NAME: Sofie Adrian ADMISSION DATE: 01/08/2017MRN: [id number] DISCHARGE DATE: 01/13/2017Attending Physician: Adis Richardson for Hospitalization: abdominal painActive Problems: SBO (small bowel obstruction) (HCC)Resolved Problems: * No resolved hospital problems. *Operations During Hospitalization: Diagnostic laparoscopy and lysis ofadhesionsProcedures During Hospitalization: intubation for surgeryHospital Course:Admitted on 01/08/17 with abdominal pain, nausea and vomiting from [facility]. Evaluated by surgery and CT result was reviewed. Takento the OR on 01/09/[address] Landeros for a Diagnostic laparoscopy andlysis of adhesions for small bowel obstruction related to a strangulatedhernia. Recovery went well on the regular medical floor. Pain wasadequately controlled. NGT post-op removed 01/10/17 and diet was advancedas tolerated. DVT prophylaxis with SQH and IPC stockings. Able to get outof bed without assistance. SARAH drain with large output, patient sent homewith SARAH drain at discharge. Nursing educated the patient on daily care andmeasuring the output. On 01/13/2017 in light of normal vital signs,tolerating a diet, pain well controlled on oral medications and able toambulate, she was deemed fit for discharge to home with instructions forJP drain care and to follow up in clinic.Labs and Procedures Pending at Discharge: surgical pathologyConsulting Teams During Hospitalization: NonePatient Condition @ Discharge: StableDischarge Disposition: Home/Self CareDischarge Physical Exam:VITAL SIGNS: BP 126/71 Pulse 65 Temp 36.6 ?C (97.9 ?F) (Oral) Resp16 Ht 154.9 cm (5' 1 ) Wt 64.1 kg (141 lb 6.4 oz) SpO2 95% BMI26.72 kg/u4Zyuugyfrfss Provided to Patient:Symptoms or health problems to watch for after I leave the hospital:-Increasing abdominal pain or krouqbdx-Iatsvtji-Soqu or no urine-Fever greater than 101.5?F (38.6?C) or chills-Unable to take in liquids or solid foods for greater than 24 hours-Shortness of breath-Chest pain-Racing heartbeat-Difficulty urinating-Bloody, dark, or tarry stool from rectumFor these or any other concerning symptom, please call immediately foradvice1. Diet: A restricted diet should be followed for the first 4-6 weeks(please refer below for recommendations). You might initially try sixsmall meals. A dietitian will provide special instructions if you have anileostomy. After the first 4-6 weeks of diet restrictions, you may resumea normal diet by adding one new food at a time.Acceptable FoodsBread and butterCanned applesauceCanned peaches or pearsFishMashed potatoesMeats without skin casingWell-cooked vegetablesUnacceptable Foods*Bran cereals, nuts, popcorn, or seedsCanned pineapple or fruit cocktailCarbonated drinksDried fruit or coconutMushrooms or cornRaw fruit (except bananas)Raw vegetables*Any food not chewable to mashed potato consistency.2. Alcohol: Alcoholic beverages, in moderation, are acceptable, butshould be avoided while using narcotics.3. Activity: Walking is encouraged, and climbing stairs is acceptable,but strenuous activity (e.g., lifting objects weighing over 10 lbs,sit-ups, press-ups) should be avoided for 8-10 weeks after open surgery or4-6 weeks after laparoscopic surgery.4. Driving: Do not drive a vehicle for two weeks after surgery or whiletaking narcotics. When you return to driving, do not go alone the firsttime.5. Wound care: Unless otherwise instructed, leave incisions uncovered.Shower daily washing your abdomen gently with warm soapy water, do not usea washcloth/loofah. Afterwards gently pat dry the wound. Leave incisionsopen to air.SARAH drain care:-Strip the SARAH drain tube twice per day away from where the tube exits thebody.-Empty the SARAH drain whenever it becomes full.-Record the date, appearance of the fluid and the amount of fluid that wasemptied from the drain on a piece of paper.-Place the drain back to bulb suction.-Bring the piece of paper with documented drain output with you to yourfollow-up appointment.-Call the office if the drain does not hold suction.-Pin the plastic tab on the SARAH drain to a hand towel placed over yourshoulder to prevent the drain from hanging down when you are showering.6. Medications: These should be taken as instructed by your surgeonincluding:Anti-diarrheal medications:Benefiber, Citrucel, Fibercon, Konsyl, or Metamucil.Imodium, Lomotil, or Opium - these should be taken 30 minutes before mealsand at bedtime (daily maximum of 8 dosages each); as diarrhea improves,the medications are taken in smaller amounts and less frequently; they canalso be used only after loose stools.Pain medications: Tylenol, Vicodin, Oxycodone, or Percocet.Prior medications: Resume these medications unless otherwise instructed.Stool Softeners, if needed:Tootie-colace should be taken 2 times per dailyto have 1 - 2 soft bowel movements per day. This may be increased ordecreased to have soft bowel movements. Milk of Magnesia should be takenif no bowel movement in 2 days.7. Bowel function: Bowel function initially tends to be erratic (gas,diarrhea, seepage, or cramps; good and bad days), but gradually improvesover the first 6 months as your body adjusts to the surgical changes.Foods that worsen your function should be avoided.8. [place]: If you have melida, these should be removed within 10-14days after surgery. You can do this by 1 of 3 ways. 1.) By schedulinganother appointment in our office. 2.) Having home care if availableremove them. Or 3.) By having your primary care physician remove them intheir office.9. Potential problems:-Bowel obstruction or ileus: If you experience persistent abdominalcramps, bloating, nausea, vomiting, or constipation, this may indicate anobstruction or ileus. If the symptoms are mild, you may restrict dietaryintake to only liquids and avoid solid food. If the symptoms are severe orpersist beyond 24 hours, you must call your surgeon for advice.-Dehydration: You should daily drink at least 8 glasses of liquids toavoid dehydration that can cause decreased urine output or dark urine.-Surgical infection: Fever, especially if associated with an ill feeling,abdominal discomfort, chills, or nausea should be reported to yoursurgeon.Wound infection: Excessive swelling, redness, drainage, or severe painaround the incision should be reported to your surgeon.10. Office visits: Follow-up appointments are usually scheduled 4-8 weeksfollowing surgery. If not arranged prior to discharge, please call yoursurgeon and set up an appointment at [phone] Medications: Discharge Medication List as of 01/13/2017 12:23 PMSTART taking these medicationsacetaminophen (TYLENOL) 325 mg tabletTake 2 tablets by mouth every 6 hours.OTC, R-0docusate sodium (COLACE) 100 mg capsuleTake 1 capsule by mouth twice daily.Print RX, Disp-30 capsule, R-1magnesium hydroxide (MOM) 400 mg/5 mL suspensionTake 30 mL by mouth twice daily.Print RX, Disp-1800 mL, R-1CONTINUE these medications which have NOT CHANGEDamitriptyline (ELAVIL) 25 mg tabletTake 25 mg by mouth daily at bedtime.Historical MedhydroCHLOROthiazide (HYDRODIURIL, ESIDRIX) 25 mg tabletTake 25 mg by mouth once daily.Historical MedHYDROcodone-acetaminophen (NORCO) 5-325 mg per tabletTake 1 tablet by mouth every 8 hours as needed for Pain.Historical Medfebuxostat (ULORIC) 40 mg tabTake by mouth once daily.Historical Medalbuterol HFA (VENTOLIN HFA) 90 mcg/actuation inhalerInhale 2 Puffs as instructed every 6 hours as needed forWheezing/Shortness of Breath.Historical MedFLUoxetine HCl 20 mg tabletTake 40 mg by mouth once daily.Historical MedtraMADol 50 mg tabletTake 50 mg by mouth every 6 hours as needed.Historical Medcelecoxib (CELEBREX) 200 mg capsuleTake 200 mg by mouth once daily.Historical Medmeloxicam (MOBIC) 15 mg tabletTake 15 mg by mouth once daily.Historical MedrOPINIRole (REQUIP) 2 mg tabletTake 2 mg by mouth daily at bedtime.Historical Medatorvastatin (LIPITOR) 10 mg tabletTake 10 mg by mouth once daily.Historical MedCetirizine 10 mg capTake by mouth once daily.Historical MedOmeprazole (PRILOSEC) 40 mg capsuleTake 1 capsule by mouth once daily.Print RX, Disp-30 capsule, R-4METOPROLOL TARTRATE ORALTake 50 mg by mouth twice daily.Historical MedOTC PRODUCTIndications: OSTEO-BIFLEX Takes 2 PO QDHistorical MedSTOP taking these medicationsiv contrast (radiology procedure)Comments:Reason for Stopping:enteric contrast (radiology procedure)Comments:Reason for Stopping:Future AppointmentsDate Time Provider Department Irjdtr4001/26/2017 2:00 PM [id number], KATHRYN (MODEL MAKER) ECX014 [facility] - Office [address] [place] [address] [place] [address] *[facility] and [facility] flower [facility]*TIME OF CARE: Discharge Management: I personally spent greater than 30minutes involved in the discharge management of this patient.SIGNATURE: Natasha YUN CNP PAGER: [phone]: January 13, 2017TIME: 9:50 AM [facility] NURSING PROGon 01-13-2017 NURSING PROG HNO ID: [id number] thor: Saida (Rn) RAJ Rodriguezervice: NursingAuthor Type: Registered NurseType: Nursing Progress NoteFiled: 01/13/2017 1:14 PMNote Text: Nursing Progress NotePatient Name: Sofie AdrianMRN: [id number] Location: [place] [id number] Daily Note:IV Heplock D/C'd. Discharge instructions reviewed with patient, statesunderstanding. RX for Colace and MOM. No further questions at this time.1313: D/C off unit via wheelchair, picking up patient.This note was completed by: Saida Rodriguez RN [facility] NURSING PROG HNO ID: [id number] thor: Carmen Jha (Rn) Sangita RNService: (none)Author Type: Registered NurseType: Nursing Progress NoteFiled: 01/13/2017 2:33 AMNote Text: Nursing Progress NotePatient Name: Sofie AdrianMRN: [id number] Location: [place] [id number] Sarah dsg changed earlier approx 2200 as saturated with serosang drainage.Gown changed. Pain controlled with toradol and tylenol and 5mg oxycodonegiven earlier. Pt declined MOM and colace as states had at least eightBMs loose today . Reports is chronic diarrhea after colon resection inpast.This note was completed by: Carmen Quesada RN [facility] PROGRESSon 01-13-2017 PROGRESS HNO ID: [id number] thor: Carlos (Res) Quiqueervice: General SurgeryAuthor Type: ResidentType: Progress NotesFiled: 01/13/2017 10:17 AMNote Text:Gen Surg Progress note (SARAH drain removal)Patient was supine on his hospital bed. Suture was transected and drainwas easily removed w/out much resistance. Drain was inspected and foundcompletely intact. 3-0 Nylon horizontal mattress was placed with tailsleft long. The wound was then covered with exofin glue. A dressing wasplaced over wound. Patient tolerated the procedure well.Carlos Garcia MDGeneral SurgeryFor any questions please contactSurgery Green Team pager [phone] weekdays.Or [phone] weeknights (6pm - 6am) and weekends.Date: 01/13/2017Time: 10:17 AM [facility] PROGRESS HNO ID: [id number] thor: Adis LanderosService: General SurgeryAuthor Type: PhysicianType: Progress NotesFiled: 01/13/2017 1:09 PMNote Text:General Surgery Progress NoteService Date: January 13, 2017Patient Name: Sofie AguilarN: [id number] and Plan: 61 year old female with SBO and strangulated internalhernia??POD 4?s/p laparoscopic lysis of adhesions, doing well. Leukopenia?- Pain control: tylenol, PO oxy- FEN/GI: GIS diet, mIVFs- No Trujillo- VTE Prophylaxis: SQH, SCDs- Routine surgical care: IS, OOB- Dispo: Possible DC todayPlan to be discussed with Surgery Staff.Raghu Westbrook MDFor any questions please contactSurgery Green Team pager [phone] weekdays.Or [phone] weeknights (6pm - 6am) and weekends.Date: 01/13/2017Time: 7:55 AMSubjective:Interval Events: none. Pain: controlled. + bowel function. No othercomplaints.Physical Exam:BP 126/71 Pulse 65 Temp 36.6 ?C (97.9 ?F) (Oral) Resp 16 Ht 154.9cm (5' 1 ) Wt 64.1 kg (141 lb 6.4 oz) SpO2 95% BMI 26.72 kg/k5CNGRUVF/NEURO: Awake, Alert, no distressHEENT: Normocephalic, Atraumatic, sclera anictericCHEST: Unlabored breathing, hemodynamically stableABDOMEN: Soft, Non-tender, Non-Distended, Incisions clean/dry/intactEXTREMITIES: warm, well perfused, no jaundice, no cyanosis, no edemaLabs:CBC, Coags, BMP, Mg, PhosRecent Labs 01/11/1705WBC 3.27* 2.75*HB 8.8* 8.2*HCT 27.9* 25.8*PLT 135* 112*NA 138 136K 4.1 3.4*CHLOR 105 104CO2 23 23BUN 4* 10CREAT 0.54* 0.64*GLUC 111* 188*CA 8.3* 7.4*MG 1.8 1.7Liver Function, Amylase, AND LipaseLactate (mmol/L)Date Value08/08/2015 1.0Intake and Output:Date 01/12/17 07 - 01/13/17 0659 01/13/17699 - 01/14/17 0659Shift 7826-2604 8873-4782 4936-4402 24 Hour Total 3269-7317 1079-50358479-9156 24 Hour TotalINTAKE PO 120 120 240 PO 120 120 240 IV 1148 1148 D5 0.45%NS w/20KCL 1148 1148 Shift Total 1268 120 1388OUTPUT Urine 1200 648 836 0270 100 100 Void (ml) 1200 455 299 2286 100 100 Tubes 190 140 210 540 30 30 Drain/Tube Output (Drain/Tube Hasmukh Atkins Right Abdomen 01/09/1719Fr) 190 140 210 540 30 30 # of BMs Number of BMs 1 x 2 x 1 x 4 x Shift Total 1390 122 975 0498 130 130Weight (kg) 64.1 64.1 64.1 64.1 64.1 64.1 64.1 64.1Current Medications:Current hospital medications:ketorolac 15 mg injection (TORADOL) 15 mg INTRAVENOUS q 6 HoxyCODONE IR 5-10 mg tab(s) (ROXICODONE) 5-10 mg ORAL q 4 H PRNmorphine 2 mg injection 2 mg INTRAVENOUS q 4 H PRNdocusate sodium 100 mg cap(s) (COLACE) 100 mg ORAL BIDmagnesium hydroxide 400 mg/5 mL 30 mL (MOM) 30 [address]antoprazole DR 20 mg tab(s) (PROTONIX) 20 mg ORAL DAILY (6 AM)acetaminophen 650 mg tab(s) (TYLENOL) 650 mg ORAL q 6 Halbuterol HFA 90 mcg/actuation 2 Puff (PROVENTIL HFA, VENTOLIN HFA) 2 PuffINHALATION q 6 H PRNrOPINIRole 2 mg tab(s) (REQUIP) 2 mg ORAL AT BEDTIMEamitriptyline 25 mg tab(s) (ELAVIL) 25 mg ORAL AT BEDTIMEFLUoxetine 40 mg cap(s) (PROzac) 40 mg ORAL DAILYondansetron 4 mg tab(s) (ZOFRAN) 4 mg ORAL q 6 H PRNondansetron (PF) 4 mg injection (ZOFRAN) 4 mg INTRAVENOUS q 6 H PRNheparin 5,000 Units injection 5,000 Units SUBCUTANEOUS q 12 Hmetoprolol tartrate (short acting) 12.5 mg tab(s) (LOPRESSOR) 12.5 mg ORALq 12 HPrior to Admission Medications:amitriptyline (ELAVIL) 25 mg tablet Take 25 mg by mouth daily at bedtime.hydroCHLOROthiazide (HYDRODIURIL, ESIDRIX) 25 mg tablet Take 25 mg bymouth once daily.HYDROcodone-acetaminophen (NORCO) 5-325 mg per tablet Take 1 tablet bymouth every 8 hours as needed for Pain.febuxostat (ULORIC) 40 mg tab Take by mouth once daily.albuterol HFA (VENTOLIN HFA) 90 mcg/actuation inhaler Inhale 2 Puffs asinstructed every 6 hours as needed for Wheezing/Shortness of Breath.FLUoxetine HCl 20 mg tablet Take 40 mg by mouth once daily.traMADol 50 mg tablet Take 50 mg by mouth every 6 hours as needed.celecoxib (CELEBREX) 200 mg capsule Take 200 mg by mouth once daily.meloxicam (MOBIC) 15 mg tablet Take 15 mg by mouth once daily.rOPINIRole (REQUIP) 2 mg tablet Take 2 mg by mouth daily at bedtime.iv contrast (radiology procedure) CT ABD/PEL -Inject, intravenously, oncefor 1 dose.No IV access, insert saline lock prior to the beginning ofsedation, infusion, injection of imaging exam. Discontinue saline lockpost exam. If Pt. has a central line or IVAD, may access foradministration according to line specific nursing protocol. Once exam iscomplete flush line and de-access according to line specific nursingprotocol in the CT contrast administration guidelines link.enteric contrast (radiology procedure) For CT ABD/PEL W IVCON Routineorder Administer, As Directed One Time Only, via Oral, Rectal, both Oraland Rectal, Enteric Tube, Stoma or Indwelling Catheter, Enteric Contrastas designated per enteric contrast guidelinesatorvastatin (LIPITOR) 10 mg tablet Take 10 mg by mouth once daily.Cetirizine 10 mg cap Take by mouth once daily.Omeprazole (PRILOSEC) 40 mg capsule Take 1 capsule by mouth once daily.METOPROLOL TARTRATE ORAL Take 50 mg by mouth twice daily.OTC PRODUCT Indications: OSTEO-BIFLEX Takes 2 PO QDI have seen and examined the patient with the house staff. Agree with keycomponents of resident's note, care plan and decision making for the daydiscussed.Doing well w/o pain. chaz PO and normal BMs. D/C todayAll of her questions answered and concerns addressedPt appreciative of the Xena Landeros, Evan Landeros, TREYeptember 2016 1:09 PM Normal [facility] Basic Metabolic Panlon 01-12 Anion gap 10 mmol/L Normal 01-12 [facility] Comment on above: Performed By: #### CBC, BMP, MG1 ####[place] [address] Calcium 8.3 mg/dL Low 8.5-10.5 [facility] Comment on above: Result Comment: Reviewed Performed By: #### C BC, BMP, MG1 ####[place] [address] Chloride 105 mmol/L Normal 98-110 [facility] Comment on above: Performed By: #### CBC, BMP, MG1 ####[place] [address] CO2 23 mmol/L Normal 23-32 [facility] Comment on above: Performed By: #### CBC, BMP, MG1 ####[place] [address] Creatinine 0.54 mg/dL Low 0.70-1.40 [facility] Comment on above: Performed By: #### CBC, BMP, MG1 ####[place] [address] eGFR (non-black) mL/min/{1.73_m2} Normal >60 [facility] Comment on above: Performed By: #### CBC, BMP, MG1 ####[place] [address] Glucose mass conc 111 mg/dL High 65-100 [facility] Comment on above: Performed By: #### CBC, BMP, MG1 ####[place] [address] Potassium molar conc 4.1 mmol/L Normal 3.5-5.0 [facility] Comment on above: Result Comment: Reviewed Performed By: #### C BC, BMP, MG1 ####[facility] [place], [place] [phone] Sodium 138 mmol/L Normal 132-148 [facility] Comment on above: Performed By: #### CBC, BMP, MG1 ####[place] [facility] [place] [phone] Urea nitrogen 4 mg/dL Low 8-25 [facility] Comment on above: Performed By: #### CBC, BMP, MG1 ####[place] [id number] [place] [phone] CASE MGT INIT ASSESon 2016 CASE MGT INIT LINDA HNO ID: [id number]: Negar ([employer]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 Dtr lives nearby and assists with cleaningFinancial Resources: Pt and own a body shopPrimary Contact:Extended Emergency Contact InformationPrimary Emergency Contact: Ying Adrian Jgslsayy: ChildSupportive: YesOther Important Patient Contacts: Pt states her is verysupportive.CAREGIVER ASSESSMENT:Caregiver is ready, willing and able to meet the patient's needs asrecommended by the inter-professional team? NoPatient's transition needs and plan for meeting these needs: Pt identifiesno needsDoes the patient have an acute stroke diagnosis, or has the patient had astroke during this admission? NoADVANCE DIRECTIVES:Does Patient Have Advance Directives? No, copies givenDoes Patient Have Concerns About Advance Directives? NoPRIOR TO ADMISSION:Baseline Mental Status: Alert AND Oriented, Person, Place , Time andSituationFunctional Status: IndependentDoes Patient Currently Receive Any Community Services or Home Care? NoneEquipment Prior to Admission: Does not use DME at homeHEALTH:Health Issues Impacting Discharge Plan: PMH HTN, HLD, PUD, COPD, PSH L TACwith DEONNA 08/2015Health Literacy Issues: NoPSYCHOSOCIAL:Is the Patient Psychosocially Complex? NoFamily/Patient Understanding of Illness/Diagnosis: YesMedication Adherence:Do you forget to take your medications? I do not forget to take mymedicationHave you ever stopped taking medications because you felt worse? None ofthe timeHave you ever taken less of your medication than what was prescribed byyour doctor? None of the timeIn the past 3 months, have you had issues obtaining one or more of yourmedications? None of the timeAre you interested in bedside delivery of your medications? YesFood Concerns:In the Last Month, Have You had Trouble Getting Food? No trouble gettingfoodDuring the Last Month, Have You Worried Whether Your Food Would Run OutBefore You Had Enough Money to Buy More? NoPsychosocial Needs: NoneUTILIZATION:Last Admission Date: Previous admit date: 09/19/2015Is this Within the Past 30 days? NoHas the Patient Been in a Alf Facility in the Past 30 days? NoFREEDOM OF CHOICE EXPLAINED:Yes with ptHANDOFF COMMUNICATION:Primary Care Physician: Tommy Anaya DO .Summary will be routed via [employer] at d/cPt is from [facility] (about [address] from [facility]) She is hopingto return home with no needs, but family can assist should needs arise.Dtr or will transport at d/c.SIGNATURE: BISMARK Jacobs PATIENT NAME: Sofie AdrianDATE: January 12, 2017 : 10:32 AM PAGER/CONTACT #: [phone] [facility] 01-12-2017 Erythrocyte distribution width Auto Ratio (RBC) 12.7 % Normal 11.5-15.0 [facility] Comment on above: Performed By: #### CBC BMP, MG1 ####[place] [address] Erythrocytes (RBC) 2.78 10*6/uL Low 3.90-5.20 [facility] Comment on above: Performed By: #### CBC BMP, MG1 ####[place] [address] Hematocrit (HCT) 27.9 % Low 36.0-46.0 [facility] Comment on above: Performed By: #### ROMIE BMP, MG1 ####[place] [address] Hemoglobin mass conc (Bld) 8.8 g/dL Low 11.5-15.5 [facility] Comment on above: Performed By: #### ROMIE BMP, MG1 ####[place] [address] MCH 31.7 pG Normal 26.0-34.0 [facility] Comment on above: Performed By: #### RITA GRUBBS, MG1 ####[place] [address] MCHC mass conc (RBC) 31.5 g/dL Normal 30.5-36.0 [facility] Comment on above: Performed By: #### CBC, BMP, MG1 ####[place] [address] MCV 100.4 fL High 80.0-100.0 [facility] Comment on above: Performed By: #### CBC, BMP, MG1 ####[place] [address] Platelet mean volume (PMV) 11.1 fL Normal 9.0-12.7 [facility] Comment on above: Performed By: #### CBC, BMP, MG1 ####[address] [place] [phone] Platelets 135 10*3/uL Low 150-400 [facility] Comment on above: Performed By: #### CBC, BMP, MG1 ####[place] [address] [place], [place] [phone] WBC (Leukocytes) 3.27 10*3/uL Low 3.70-11.00 [facility] Comment on above: Performed By: #### CBC, BMP, MG1 ####[place] [address] [phone] Magnesiumon 01-12-2017 Magnesium 1.8 mg/dL Normal 1.7-2.6 [facility] Comment on above: Performed By: #### CBC, BMP, MG1 ####[place] [address] [phone] PROGRESSon 01-12-2017 PROGRESS HNO ID: [id number] thor: TREY Villavicencio Reservice: General SurgeryAuthor Type: ResidentType: Progress NotesFiled: 01/12/2017 7:27 AMNote Text:General Surgery Progress NoteService Date: January 12, 2017Patient Name: Sofie AdrianMRN: [id number] and Plan: Sofie Adrian is a 61 year old female with SBO andstrangulated internal hernia??POD 3?s/p laparoscopic lysis of adhesions,doing well. Leukopenia- Pain control: tylenol, DC morphine HOME HEALTH AIDE CAREGIVER, transition to PO oxy- FEN/GI: GIS diet, mIVFs- No Trujillo- VTE Prophylaxis: SQH, SCDs- Routine surgical care: IS, OOB- Dispo: RNFPlan to be discussed with Surgery Staff.Raghu Westbrook MDFor any questions please contactSurgery Green Team pager [phone] weekdays.Or [phone] weeknights (6pm - 6am) and weekends.Date: 01/12/2017Time: 5:51 AMSubjective:Interval Events: Resting well. No acute issues overnight. BM-, Flatus+.Pain -. N-. Denies SoB/CPPhysical Exam:BP 110/67 Pulse 76 Temp 36.5 ?C (97.7 ?F) (Oral) Resp 16 Ht 154.9cm (5' 1 ) Wt 64.1 kg (141 lb 6.4 oz) SpO2 95% BMI 26.72 kg/n6TDAMWMD/NEURO: Awake, Alert, no distressHEENT: Normocephalic, Atraumatic, sclera anictericCHEST: Unlabored breathing on RA, hemodynamically stableABDOMEN: Soft, Non-tender, Non-Distended, Incisions clean/dry/intact, JPSSEXTREMITIES: warm, well perfused, no jaundice, no cyanosis, no edemaLabs:CBC, Coags, BMP, Mg, PhosRecent Labs 01/11/1704WBC 2.75* 5.33 -- 13.84*HB 8.2* 10.3* -- 12.3HCT 25.8* 32.3* -- 37.2PLT 112* 113* -- 180INR -- -- 1.1 1.1APTT -- -- 28.1 26.8NA 136 139 -- 138K 3.4* 3.6 -- 3.8CHLOR 104 104 -- 102CO2 23 23 -- 18*BUN 10 12 -- 12CREAT 0.64* 0.66* -- 0.58*GLUC 188* 100 -- 171*CA 7.4* 7.8* -- 8.6MG 1.7 1.9 -- 1.7P -- -- -- 3.0Liver Function, Amylase, AND LipaseLactate (mmol/L)Date 08/08/2015 1.0Intake and Output:Date 01/11/17699 - 01/12/17 0659 01/12/17 07 - 01/13/17 0659Shift 9040-3909 1184-4757 9514-2433 24 Hour Total 4486-5295 7218-69157205-7789 24 Hour TotalINTAKE PO 120 120 240 PO 120 120 240 IV 153 613 0638 D5 0.45%NS w/20KCL 123 233 5453 Shift Total 1025 739 1764OUTPUT Urine 475 724 348 7478 Void (ml) 275 325 150 3324 Tube Output ([REMOVED] Drain Trujillo 01/09/17 16 Maori ) 200 200 Tubes 140 130 100 370 Drain/Tube Output (Drain/Tube Hasmukh Atkins Right Abdomen 01/09/1719Fr) 140 130 100 370 Shift Total 615 730 500 1845Weight (kg) 64.1 64.1 64.1 64.1 64.1 64.1 64.1 64.1Current Medications:Current hospital medications:pantoprazole DR 20 mg tab(s) (PROTONIX) 20 mg ORAL DAILY (6 AM)dextrose 5% in NaCl 0.45% with 20 mEq/L KCl iv infusion 100 mL/hrINTRAVENOUS CONTINUOUSmorphine HOME HEALTH AIDE CAREGIVER 1 mg/mL in NaCl 0.9% 100 mL INTRAVENOUS CONTINUOUSmorphine 1 mg/mL HOME HEALTH AIDE CAREGIVER CLINICIAN DOSE 1 mg 1 mg INTRAVENOUS q 6 H PRNacetaminophen 650 mg tab(s) (TYLENOL) 650 mg ORAL q 6 Halbuterol HFA 90 mcg/actuation 2 Puff (PROVENTIL HFA, VENTOLIN HFA) 2 PuffINHALATION q 6 H PRNrOPINIRole 2 mg tab(s) (REQUIP) 2 mg ORAL AT BEDTIMEamitriptyline 25 mg tab(s) (ELAVIL) 25 mg ORAL AT BEDTIMEFLUoxetine 40 mg cap(s) (PROzac) 40 mg ORAL DAILYondansetron 4 mg tab(s) (ZOFRAN) 4 mg ORAL q 6 H PRNondansetron (PF) 4 mg injection (ZOFRAN) 4 mg INTRAVENOUS q 6 H PRNheparin 5,000 Units injection 5,000 Units SUBCUTANEOUS q 12 Hmetoprolol tartrate (short acting) 12.5 mg tab(s) (LOPRESSOR) 12.5 mg ORALq 12 HPrior to Admission Medications:amitriptyline (ELAVIL) 25 mg tablet Take 25 mg by mouth daily at bedtime.hydroCHLOROthiazide (HYDRODIURIL, ESIDRIX) 25 mg tablet Take 25 mg bymouth once daily.HYDROcodone-acetaminophen (NORCO) 5-325 mg per tablet Take 1 tablet bymouth every 8 hours as needed for Pain.febuxostat (ULORIC) 40 mg tab Take by mouth once daily.albuterol HFA (VENTOLIN HFA) 90 mcg/actuation inhaler Inhale 2 Puffs asinstructed every 6 hours as needed for Wheezing/Shortness of Breath.FLUoxetine HCl 20 mg tablet Take 40 mg by mouth once daily.traMADol 50 mg tablet Take 50 mg by mouth every 6 hours as needed.celecoxib (CELEBREX) 200 mg capsule Take 200 mg by mouth once daily.meloxicam (MOBIC) 15 mg tablet Take 15 mg by mouth once daily.rOPINIRole (REQUIP) 2 mg tablet Take 2 mg by mouth daily at bedtime.iv contrast (radiology procedure) CT ABD/PEL -Inject, intravenously, oncefor 1 dose.No IV access, insert saline lock prior to the beginning ofsedation, infusion, injection of imaging exam. Discontinue saline lockpost exam. If Pt. has a central line or IVAD, may access foradministration according to line specific nursing protocol. Once exam iscomplete flush line and de-access according to line specific nursingprotocol in the CT contrast administration guidelines link.enteric contrast (radiology procedure) For CT ABD/PEL W IVCON Routineorder Administer, As Directed One Time Only, via Oral, Rectal, both Oraland Rectal, Enteric Tube, Stoma or Indwelling Catheter, Enteric Contrastas designated per enteric contrast guidelinesatorvastatin (LIPITOR) 10 mg tablet Take 10 mg by mouth once daily.Cetirizine 10 mg cap Take by mouth once daily.Omeprazole (PRILOSEC) 40 mg capsule Take 1 capsule by mouth once daily.METOPROLOL TARTRATE ORAL Take 50 mg by mouth twice daily.OTC PRODUCT Indications: OSTEO-BIFLEX Takes 2 PO QD [facility] PT EDon 01-12-2017 PT ED HNO ID: [id number] thor: Nikki Tinajero (Pharmacist)Service: PharmacyAuthor Type: PharmacistType: Patient EducationFiled: 01/12/2017 11:10 AMNote Text:Clinical Pharmacy ServicesHigh Risk: Daily Medication AssessmentPatient Name: Sofie Donald LaurenN: [id number] Date: 01/08/2017Service Date and Time: 01/12/2017 10:52 AMNew MedicationsThe following medications have been started since last pharmacy review:Protonix, ToradolMedication education has been completed: Yes or Comments: patient alsoasked about dosing her metoprololSignature: Julius Feliz (Principal Military Analyst)[place]: [phone]: [phone] Addendum:The above case has been reviewed and discussed with the pharmacy services representative.I agree with the assessment/plan described by the student. Changes andadditions to the details in the above note are indicated by italics and .Nikki Tinajero, Pharmacist01/12/2017 11:10 [id number] [facility] ANES Viktor 01-11-2017 ANES POST HNO ID: [id number] thor: Payam Gomezervice: AnesthesiologyAuthor Type: AnesthesiologistType: Anesthesia PostOpFiled: 01/11/2017 12:37 PMNote Text:POST ANESTHESIA EVALUATION NOTESERVICE DATE: 01/11/2017SERVICE TIME: 12:36 PMDOB: 1955Vitals: 6 01/12/1708BP: 93/60 101/59 104/61 114/64Pulse: 72 87 82 83Resp: 16 16 16Temp: 36.4 ?C (97.6 ?F) 37.1 ?C (98.7 ?F) 37.1 ?C (98.8 ?F)TempSrc: Oral Oral OralSpO2: 92% 96% 99% 96%Weight:Height:Validated Vital Signs: YesNo apparent anesthetic complications. The patient is appropriatelyhydrated with stable respiratory and cardiovascular status. Patient hassafe and adequate airway control. The patient has appropriate pain reliefand no significant post operative nausea or vomiting. The patient hasachieved baseline mental status.Further assessment by Anesthesia Service: NoneOther Remarks:SIGNATURE: Payam Anand MD PATIENT NAME: Sofie Donald BakerDATE: January 11, 2017 : 12:36 PM PAGER/CONTACT #: [phone] [facility] Basic Metabolic Panlon 01-11 Anion gap 9 mmol/L Normal 01-12 [facility] Comment on above: Performed By: #### CBC, BMP, MG1 ####[place] [address] [phone] Calcium 7.4 mg/dL Low 8.5-10.5 [facility] Comment on above: Performed By: #### RITA GRUBBS, MG1 ####[place] [address] Chloride 104 mmol/L Normal 98-110 [facility] Comment on above: Performed By: #### ROMIE BMP, MG1 ####[place] [address] CO2 23 mmol/L Normal 23-32 [facility] Comment on above: Performed By: #### ROMIE BMP, MG1 ####[place] [address] Creatinine 0.64 mg/dL Low 0.70-1.40 [facility] Comment on above: Performed By: #### RITA GRUBBS, MG1 ####[place] [address] eGFR (non-black) mL/min/{1.73_m2} Normal >60 [facility] Comment on above: Performed By: #### RITA GRUBBS, MG1 ####[place] [address] Glucose mass conc 188 mg/dL High 65-100 [facility] Comment on above: Performed By: #### ROMIE BMP, MG1 ####[place] [address] Potassium molar conc 3.4 mmol/L Low 3.5-5.0 [facility] Comment on above: Performed By: #### ROMIE, BMP, MG1 ####[place] [address] Sodium 136 mmol/L Normal 132-148 [facility] Comment on above: Performed By: #### ROMIE, BMP, MG1 ####[place] [address] Urea nitrogen 10 mg/dL Normal 8-25 [facility] Comment on above: Performed By: #### CBC BMP, MG1 ####[place] [address] CBCon 01-11-2017 Erythrocyte distribution width Auto Ratio (RBC) 12.9 % Normal 11.5-15.0 [facility] Comment on above: Performed By: #### CBC BMP, MG1 ####[place] [address] Erythrocytes (RBC) 2.55 10*6/uL Low 3.90-5.20 [facility] Comment on above: Performed By: #### RITA GRUBBS, MG1 ####[address] Hematocrit (HCT) 25.8 % Low 36.0-46.0 [facility] Comment on above: Performed By: #### CBC BMP, MG1 ####[address] Hemoglobin mass conc (Bld) 8.2 g/dL Low 11.5-15.5 [facility] Comment on above: Performed By: #### CBC BMP, MG1 ####[address] MCH 32.2 pG Normal 26.0-34.0 [facility] Comment on above: Performed By: #### CBC BMP, MG1 ####[address] MCHC mass conc (RBC) 31.8 g/dL Normal 30.5-36.0 [facility] Comment on above: Performed By: #### CBC BMP, MG1 ####[place] [phone] MCV 101.2 fL High 80.0-100.0 [facility] Comment on above: Performed By: #### CBC, BMP, MG1 ####[place] [id number] [place], [place] [phone] Platelet mean volume (PMV) 10.9 fL Normal 9.0-12.7 [facility] Comment on above: Performed By: #### ROMIE, BMP, MG1 ####[facility] [place], [place] [phone] Platelets 112 10*3/uL Low 150-400 [facility] Comment on above: Performed By: #### ROMIE, BMP, MG1 ####[place] [id number] [place], [place] [phone] WBC (Leukocytes) 2.75 10*3/uL Low 3.70-11.00 [facility] Comment on above: Performed By: #### ROMIE, RITA, MG1 ####[place] [id number] [place], [place] [phone] Magnesiumon 01-11-2017 Magnesium 1.7 mg/dL Normal 1.7-2.6 [facility] Comment on above: Performed By: #### ROMIE, RITA, MG1 ####[address] [phone] NURSING PROGon 01-11-2017 NURSING PROG HNO ID: [id number] thor: Josie (Rn) RAJ Palafoxervice: NursingAuthor Type: Registered NurseType: Nursing Progress NoteFiled: 01/12/2017 12:04 AMNote Text: Nursing Progress NotePatient Name: Sofie Donald JakeMRN: [id number] [facility] Pt awake and alert. Pt c/o 2/10 abdominal pain. Pt minimally using PCApump. Explained POC and probable advancement in diet and possiblediscontinue of HOME HEALTH AIDE CAREGIVER pump. Pt understands. Will continue to monitor.This note was completed by: Josie Palafox RN,BSN [facility] NURSING PROG HNO ID: [id number] thor: Judy Kumari) [place] Garcia: (none)Author Type: Registered NurseType: Nursing Progress NoteFiled: 01/11/2017 6:28 PMNote Text: Nursing Progress NotePatient Name: Sofie AdrianMRN: [id number] Location: [place] [address]/[id number]-[id number] Daily Note:IV/HOME HEALTH AIDE CAREGIVER maintained.Taking diet fair.No n/v.Voiding clearurine.Up in chair for about one hour,ambulates to bathroom with walker andone assist.Will reassess.This note was completed by: Judy Garcia RN [facility] NURSING PROG HNO ID: [id number] thor: Judy Kumari) [place] Garcia: (none)Author Type: Registered NurseType: Nursing Progress NoteFiled: 01/11/2017 9:48 AMNote Text: Nursing Progress NotePatient Name: Sofie AdrianMRN: [id number] Location: [place] [address]/[id number] Daily Note:IV/HOME HEALTH AIDE CAREGIVER morphine maintained.Diet advanced to clear liquid thento GI soft-waiting for tray at this time.Taking clear liquids well.Non/v.Trujillo removed at 8:10 A.M.,has not voided as of yet.Lap sites cleanand well approximated.No drainage noted.Dressing around Hasmukh Atkins inplace and draining reddish drainage.Abd. soft,distended,and tender.Bowelsounds hypoactive.Denies pain.Will reassess.This note was completed by: Judy Garcia RN [facility] PROGRESSon 01-11-2017 PROGRESS HNO ID: [id number] thor: Reji Hollis: General SurgeryAuthor Type: PhysicianType: Progress NotesFiled: 01/11/2017 3:04 PMNote Text: SURGERY INPATIENT PROGRESS NOTEName: Sofie AdrianMRN: [id number] and Plan:61 year old female with SBO and strangulated internal hernia POD 2 s/plaparoscopic lysis of adhesions, doing well?- Pain control: tylenol, morphine HOME HEALTH AIDE CAREGIVER- FEN/GI: GIS diet, NGT removed yesterday- ID: On Abx Zosyn- DC Trujillo today- VTE Prophylaxis: SQH, SCDs- Routine surgical care: IS, OOB- Dispo: RNFS: Resting well. No acute issues overnight. BM-, Flatus+. Pain -. N-.Denies SoB/CP.O:Current hospital medications:phenol 1 [place] (CHLORASEPTIC) 1 [place] MUCOUS MEMBRANE (TOPICAL MOUTH ANDTHROAT) q 2 H PRNdextrose 5% in NaCl 0.45% with 20 mEq/L KCl iv infusion 100 mL/hrINTRAVENOUS CONTINUOUSmorphine HOME HEALTH AIDE CAREGIVER 1 mg/mL in NaCl 0.9% 100 mL INTRAVENOUS CONTINUOUSmorphine 1 mg/mL HOME HEALTH AIDE CAREGIVER CLINICIAN DOSE 1 mg 1 mg INTRAVENOUS q 6 H PRNacetaminophen 650 mg tab(s) (TYLENOL) 650 mg ORAL q 6 Halbuterol HFA 90 mcg/actuation 2 Puff (PROVENTIL HFA, VENTOLIN HFA) 2 PuffINHALATION q 6 H PRNrOPINIRole 2 mg tab(s) (REQUIP) 2 mg ORAL AT BEDTIMEamitriptyline 25 mg tab(s) (ELAVIL) 25 mg ORAL AT BEDTIMEFLUoxetine 40 mg cap(s) (PROzac) 40 mg ORAL DAILYondansetron 4 mg tab(s) (ZOFRAN) 4 mg ORAL q 6 H PRNondansetron (PF) 4 mg injection (ZOFRAN) 4 mg INTRAVENOUS q 6 H PRNheparin 5,000 Units injection 5,000 Units SUBCUTANEOUS q 12 Hmetoprolol tartrate (short acting) 12.5 mg tab(s) (LOPRESSOR) 12.5 mg ORALq 12 HBP 101/59 Pulse 87 Temp 37.1 ?C (98.7 ?F) (Oral) Resp 16 Ht 154.9cm (5' 1 ) Wt 64.1 kg (141 lb 6.4 oz) SpO2 96% BMI 26.72 kg/g9Weaahs/Output Summary (Last 24 hours) at 01/11/17 0755Last data filed at 01/11/17 0613 Gross per 24 hourIntake 3468 mlOutput 1135 mlNet 2333 mlGeneral Appearance: Well appearing, alert, in no acute distress,well-hydrated, well nourished.Abdomen: soft, non-distended, decreased tenderness in LLQIncision C/D/IDrain: serosanguinousCBC, BMP, MG, PHOSRecent Labs 01/11/1704143WBC 2.75* 5.33 13.84* 10.34 < > 7.41HB 8.2* 10.3* 12.3 12.4 < > 8.3*HCT 25.8* 32.3* 37.2 36.7 < > 28.4*PLT 112* 113* 180 186 < > 139*NA 136 139 138 136 < > 137K 3.4* 3.6 3.8 3.8 < > 4.3CHLOR 104 104 102 100 < > 101CO2 23 23 18* 20* < > 25BUN 10 12 12 13 < > 2*CREAT 0.64* 0.66* 0.58* 0.54* < > 0.47*GLUC 188* 100 171* 159* < > 125*CA 7.4* 7.8* 8.6 8.8 < > 8.5MG 1.7 1.9 1.7 1.9 -- 1.6*P -- -- 3.0 3.9 -- 2.1*< > = values in this interval not displayed.Liver Function, Amylase, AND LipaseRecent Labs 5 08/11/1603265870HMYZO 8.1 6.9 6.1 < > --ALB 4.1 4.0 3.5 < > --ALT 12 51* 46* < > --AST 37 91* 81* < > --ALKPHOS 207* 185* 130 < > --TBILI 0.4 0.4 0.4 < > --LACT -- -- -- -- 1.0< > = values in this interval not displayed.CoagsRecent Labs 01/09/1706571798ULRL 28.1 26.8 27.7INR 1.1 1.1 1.1*A review of daily goals, interventions, and plan of care with themultidisciplinary team and patient has been conducted. The patient?sconcerns have been addressed and he/she agrees to proceed with today?splan of care.Raghu Westbrook MDGenepremier health atrium [facility] Surgery PGY-17:55 AM01/11/2017Green Team Pager: [phone]*Please page Jr. On-Call [phone]) 6pm - 6am and on weekends.Att: NG out. Fullness after eating today - I told her to take it slowly. Abdomen still benign.Some Pancytopenia on labs - could be lab error. Will recheck in AM. Ptclinically stable.Reji Sampson, TREYeptember 2016 3:04 PM Normal [facility] Basic Metabolic Panlon 01-10 Anion gap 12 mmol/L Normal 9-18 [facility] Comment on above: Performed By: #### CBC, BMP, MG1 ####[place] [id number] [place] [phone] Calcium 7.8 mg/dL Low 8.5-10.5 [facility] Comment on above: Performed By: #### CBC, BMP, MG1 ####[place] [address] [place] [phone] Chloride 104 mmol/L Normal 98-110 [facility] Comment on above: Performed By: #### CBC, BMP, MG1 ####[place] [address] [place] [phone] CO2 23 mmol/L Normal 23-32 [facility] Comment on above: Performed By: #### CBC, BMP, MG1 ####[place] [address] Creatinine 0.66 mg/dL Low 0.70-1.40 [facility] Comment on above: Performed By: #### CBC, BMP, MG1 ####[place] [address] eGFR (non-black) mL/min/{1.73_m2} Normal >60 [facility] Comment on above: Performed By: #### CBC, BMP, MG1 ####[place] [address] Glucose mass conc 100 mg/dL Normal 65-100 [facility] Comment on above: Performed By: #### ROMIE, BMP, MG1 ####[place] [address] Potassium molar conc 3.6 mmol/L Normal 3.5-5.0 [facility] Comment on above: Performed By: #### ROMIE, BMP, MG1 ####[place] [address] Sodium 139 mmol/L Normal 132-148 [facility] Comment on above: Performed By: #### ROMIE, BMP, MG1 ####[place] [address] Urea nitrogen 12 mg/dL Normal 8-25 [facility] Comment on above: Performed By: #### CBC, BMP, MG1 ####[address] CBCon 01-10-2017 Erythrocyte distribution width Auto Ratio (RBC) 12.5 % Normal 11.5-15.0 [facility] Comment on above: Performed By: #### CBC, BMP, MG1 ####[place] [address] Erythrocytes (RBC) 3.23 10*6/uL Low 3.90-5.20 [facility] Comment on above: Performed By: #### CBC, BMP, MG1 ####[place] [address] Hematocrit (HCT) 32.3 % Low 36.0-46.0 [facility] Comment on above: Performed By: #### CBC, BMP, MG1 ####[place] [address] Hemoglobin mass conc (Bld) 10.3 g/dL Low 11.5-15.5 [facility] Comment on above: Performed By: #### CBC BMP, MG1 ####[place] [address] MCH 31.9 pG Normal 26.0-34.0 [facility] Comment on above: Performed By: #### CBC BMP, MG1 ####[place] [address] MCHC mass conc (RBC) 31.9 g/dL Normal 30.5-36.0 [facility] Comment on above: Performed By: #### CBC BMP, MG1 ####[place] [address] MCV 100.0 fL Normal 80.0-100.0 [facility] Comment on above: Performed By: #### CBC, BMP, MG1 ####[place] [address] Platelet mean volume (PMV) 11.3 fL Normal 9.0-12.7 [facility] Comment on above: Performed By: #### CBC, BMP, MG1 ####[place] [address] Platelets 113 10*3/uL Low 150-400 [facility] Comment on above: Performed By: #### CBC, BMP, MG1 ####[place] [id number] WBC (Leukocytes) 5.33 10*3/uL Normal 3.70-11.00 [facility] Comment on above: Performed By: #### RITA GRUBSB, MG1 ####[facility] [place], [place] [phone] Magnesiumon 01-10-2017 Magnesium 1.9 mg/dL Normal 1.7-2.6 [facility] Comment on above: Performed By: #### RITA GRUBBS, MG1 ####[address] [phone] NURSING PROGon 01-10-2017 NURSING PROG HNO ID: [id number] thor: Julia (Rn) Maryse, RNSrandyice: (none)Author Type: Registered NurseType: Nursing Progress NoteFiled: 01/10/2017 5:25 PMNote Text: Nursing Progress NotePatient Name: Sofie Donald LaurenN: [id number] Location: [place] [id number]-[id number] Daily Note:1700: Removed NG tube per physician order. Patient tolerated procedurewell. Ice water was provided to patient post-removal and she toleratedwell.This note was completed by: Julia Serra RN [facility] NURSING PROG HNO ID: [id number] thor: Mariluz RennerRn) Hanh, RNService: (none)Author Type: Registered NurseType: Nursing Progress NoteFiled: 01/10/2017 1:28 PMNote Text: Nursing Progress NotePatient Name: Sofie Donald LaurenN: [id number] Location: [place] [address]PG-OE8T-29 Daily Note: No acute issues this shift. Pt. up in chair. Ambulated inhall with walker and 1 staff assist. HOME HEALTH AIDE CAREGIVER morphine maintaining paincontrol. NGT to LCWS draining scant amount of bilious fluid.BS-hypoactive. IS use encouraged. Call light within reach. NPO exeptsmeds. Will continue to monitor.This note was completed by: Mariluz Schafer RN [facility] PROGRESSon 01-10-2017 PROGRESS HNO ID: [id number] thor: Reji Wheatleye: General SurgeryAuthor Type: PhysicianType: Progress NotesFiled: 01/10/2017 5:59 PMNote Text: SURGERY INPATIENT PROGRESS NOTEName: Sofie Donald JakeMRN: [id number] and Plan:61 year old female with SBO and strangulated internal hernia POD 1 s/plaparoscopic lysis of adhesions, doing well- Pain control: tylenol, morphine HOME HEALTH AIDE CAREGIVER- FEN/GI: NPO, NGT- ID: On Abx Zosyn- DC Cassandra today- VTE Prophylaxis: SQH, SCDs- Routine surgical care: IS, OOB- Dispo: RNFS: Resting well. No acute issues overnight. BM-, Flatus-. Pain -. N-.Denies SoB/CP.O:Current hospital medications:phenol 1 [place] (CHLORASEPTIC) 1 [place] MUCOUS MEMBRANE (TOPICAL MOUTH ANDTHROAT) q 2 H PRNmorphine HOME HEALTH AIDE CAREGIVER 1 mg/mL in NaCl 0.9% 100 mL INTRAVENOUS CONTINUOUSmorphine 1 mg/mL HOME HEALTH AIDE CAREGIVER CLINICIAN DOSE 1 mg 1 mg INTRAVENOUS q 6 H PRNpiperacillin-tazobactam 3.375 g in dextrose (iso-osmotic) 50 mL (ZOSYN)3.375 g INTRAVENOUS q 6 Hacetaminophen 650 mg tab(s) (TYLENOL) 650 mg ORAL q 6 Halbuterol HFA 90 mcg/actuation 2 Puff (PROVENTIL HFA, VENTOLIN HFA) 2 PuffINHALATION q 6 H PRNrOPINIRole 2 mg tab(s) (REQUIP) 2 mg ORAL AT BEDTIMEamitriptyline 25 mg tab(s) (ELAVIL) 25 mg ORAL AT BEDTIMEFLUoxetine 40 mg cap(s) (PROzac) 40 mg ORAL DAILYNaCl 0.9% iv infusion 125 mL/hr INTRAVENOUS CONTINUOUSondansetron 4 mg tab(s) (ZOFRAN) 4 mg ORAL q 6 H PRNondansetron (PF) 4 mg injection (ZOFRAN) 4 mg INTRAVENOUS q 6 H PRNheparin 5,000 Units injection 5,000 Units SUBCUTANEOUS q 12 Hmetoprolol tartrate (short acting) 12.5 mg tab(s) (LOPRESSOR) 12.5 mg ORALq 12 HBP 114/74 Pulse 90 Temp 37.4 ?C (99.3 ?F) (Oral) Resp 16 Ht 154.9cm (5' 1 ) Wt 64.1 kg (141 lb 6.4 oz) SpO2 98% BMI 26.72 kg/w3Tnjgie/Output Summary (Last 24 hours) at 01/10/17 1006Last data filed at 01/10/17 0900 Gross per 24 hourIntake 3690 mlOutput 1550 mlNet 2140 mlGeneral Appearance: Well appearing, alert, in no acute distress,well-hydrated, well nourished.Abdomen: soft, appropriately tenderIncision C/D/IDrain: serosanguinousCBC, BMP, MG, PHOSRecent Labs 3 01/08/1723143WBC 5.33 13.84* 10.34 < > 7.41HB 10.3* 12.3 12.4 < > 8.3*HCT 32.3* 37.2 36.7 < > 28.4*PLT 113* 180 186 < > 139*NA 139 138 136 < > 137K 3.6 3.8 3.8 < > 4.3CHLOR 104 102 100 < > 101CO2 23 18* 20* < > 25BUN 12 12 13 < > 2*CREAT 0.66* 0.58* 0.54* < > 0.47*GLUC 100 171* 159* < > 125*CA 7.8* 8.6 8.8 < > 8.5MG 1.9 1.7 1.9 -- 1.6*P -- 3.0 3.9 -- 2.1*< > = values in this interval not displayed.Liver Function, Amylase, AND LipaseRecent Labs 144 403 016341SZGDX 8.1 6.9 6.1 < > --ALB 4.1 4.0 3.5 < > --ALT 12 51* 46* < > --AST 37 91* 81* < > --ALKPHOS 207* 185* 130 < > --TBILI 0.4 0.4 0.4 < > --LACT -- -- -- -- 1.0< > = values in this interval not displayed.CoagsRecent Labs 01/09/1706274478HRWH 28.1 26.8 27.7INR 1.1 1.1 1.1*A review of daily goals, interventions, and plan of care with themultidisciplinary team and patient has been conducted. The patient?sconcerns have been addressed and he/she agrees to proceed with today?splan of care.Raghu Westbrook MDGeneral Surgery PGY-110:06 AM01/10/2017Green Team Pager: [phone]*Please page Jr. On-Call [phone]) 6pm - 6am and on weekends.Att: As above. Pt seen at 1000 today. Minimal pain, and abdomen benign. NG output decreasing; will consider clamp trial later vs DC of NGtomorrow AM.Reji Sampson, TREYept2016 5:59 PM Normal [facility] Toxicology Screen,Uron 01-10 Amphetamines, Urine Negative Normal Negative [facility] Comment on above: Result Comment: Cutoff threshold at 1000 ng/mL.Detection of any drug(s) is presumptive only. For confirmation by alternative methods contact the Laboratory within 5 days. For medical purposes only. Documented cross-reactivities (false positives) on file in Laboratory. Performed By: #### U TOX2 ####[facility] [place], [place] [phone] Barbiturates, Urine Negative Normal Negative [facility] Comment on above: Result Comment: Cutoff threshold at 200 ng/mL.Detection of any drug(s) is presumptive only. For confirmation by alternative methods contact the Laboratory within 5 days. For medical purposes only. Documented cross-reactivities (false positives) on file in Laboratory. Performed By: #### U TOX2 ####[place] [phone] Benzodiazepines, Ur Positive Critically abnormal Negative [facility] Comment on above: Result Comment: Cutoff threshold at 200 ng/mL.Detection of any drug(s) is presumptive only. For confirmation by alternative methods contact the Laboratory within 5 days. For medical purposes only. Documented cross-reactivities (false positives) on file in Laboratory. Performed By: #### U TOX2 ####[place] [phone] Cannabinoids, Urine Negative Normal Negative [facility] Comment on above: Result Comment: Cutoff threshold at 50 n g/mL.Detection of any drug(s) is presumptive only. For confirmation by alternative methods contact the Laboratory within 5 days. For medical purposes only. Documented cross-reactivities (false positives) on file in Laboratory. Performed By: #### U TOX2 ####[place] [phone] Cocaine, Urine Negative Normal Negative [facility] Comment on above: Result Comment: Cutoff threshold at 300 ng/mL.Detection of any drug(s) is presumptive only. For confirmation by alternative methods contact the Laboratory within 5 days. For medical purposes only. Documented cross-reactivities (false positives) on file in Laboratory. Performed By: #### U TOX2 ####[place] [phone] Ethanol, Urine <11 Normal <11 [facility] Comment on above: Performed By: #### UTOX2 ####[facility] [id number] [place], [place] [phone] Opiates, Urine Positive Critically abnormal Negative [facility] Comment on above: Result Comment: Cutoff threshold at 300 ng/mL.Detection of any drug(s) is presumptive only. For confirmation by alternative methods contact the Laboratory within 5 days. For medical purposes only. Documented cross-reactivities (false positives) on file in Laboratory. Performed By: #### U TOX2 ####[place] [address] [place], [place] [phone] Oxycodone, Urine Negative Normal Negative [facility] Comment on above: Result Comment: Cutoff threshold at 100 ng/mL.Detection of any drug(s) is presumptive only. For confirmation by alternative methods contact the Laboratory within 5 days. For medical purposes only. Documented cross-reactivities (false positives) on file in Laboratory. Performed By: #### U TOX2 ####[place] [id number] [place] [phone] Phencyclidine, Urine Negative Normal Negative [facility] Comment on above: Result Comment: Cutoff threshold at 25 n g/mL.Detection of any drug(s) is presumptive only. For confirmation by alternative methods contact the Laboratory within 5 days. For medical purposes only. Documented cross-reactivities (false positives) on file in Laboratory. Performed By: #### U TOX2 ####[place] [phone] ANES PREOPon 01-09-2017 ANES PREOP HNO ID: [id number] thor: Joe ZafareService: AnesthesiologyAuthor Type: AnesthesiologistType: Anesthesia PreOpFiled: 01/09/2017 11:54 AMNote Text:REGIONAL ANESTHESIOLOGY DAY OF SURGERY NOTEPATIENT NAME: Sofie AdrianMRN: [id number]: 1955Procedure(s) (LRB):EXPLORATORY LAPAROTOMY ADULT (N/A)LAPAROSCOPY DIAGNOSTIC (N/A)Surgeon(s):Adis Figueroa AlaedeenEstimated body mass index is 26.72 kg/(m2) as calculated from thefollowing: Height as of this encounter: 154.9 cm (5' 1 ). Weight as of this encounter: 64.1 kg (141 lb 6.4 oz).ASA Class: 3EAdequate NPO status: YesAllergies:ALLERGIESAllergen Reactions- Penicillins Vomiting- Sulfa (Sulfonamide * RashAirway Assessment: MP 3; Neck ROM: Limited Extension; Airway Evaluation:Small Mouth OpeningDentition: Teeth intactSymptoms of Sleep Apnea: DeniesMost recent lab results:Hemoglobin 12.3 01/09/2017Hematocrit 37.2 01/09/2017Potassium 3.8 01/09/2017Platelet Count 180 01/09/2017PT Sec 11.6 01/09/2017APTT 28.1 01/09/2017PT INR 1.1 01/09/2017Creatinine 0.58 01/09/2017EKG:sinus tachycardiaVitals: 442 01/09/1711BP: 122/72 146/78 140/73 119/75Pulse: 108 111 96 88Resp: 16 16 17 18Temp: 36.4 ?C (97.6 ?F) 36.4 ?C (97.6 ?F) 37.2 ?C (99 ?F)TempSrc: Oral OralSpO2: 95% 93% 94% 92%Weight:Height:Previous Anesthesia: No history of adverse event Family history ofanesthetic problems: NoneAdditional Physical Exam:Lungs: Lungs clear to auscultation. Good diaphragmatic excursion.Cardiac: Normal S1 and S2; no rubs, no murmurs and no gallopsAdditional pertinent findings: N/AOther Medical Problems/ Important Considerations:Denies change in functional capacity.Chronic Beta Willy medication administered within 24 hours: N/AAnesthetic risks, benefits, alternatives, personnel and consent discussed:YesPatient agrees to proceed: YesBlood Products: Will accept Blood/Blood ProductsAnesthetic Plan: General RSI; Standard ASA Monitors and Large bore [facility] Management Plan: Parenteral or OralEPIC Chart ReviewACTIVE PROBLEM LISTIron Deficiency AnemiaPud (Peptic Ulcer Disease)Carotid StenosisVertigoTachycardiaBpv (Benign Positional Vertigo)Hld (Hyperlipidaemia)Rectal BleedingExertional DyspneaEmphysema of Lung (Hcc)Alcohol AbuseStatus Post SurgerySbo (Small Bowel Obstruction) (Hcc)PAST MEDICAL HISTORYDiagnosis Date- Acid reflux- Alcohol abuse Bottle of wine daily- Arthritis- Carotid stenosis medical management- COPD (chronic obstructive pulmonary disease) (HCC) mild obstruction on PFT's 09/2013- Former smoker 10 pack years, quit 2003- High cholesterol- History of rheumatic fever- Hypertension- PUD (peptic ulcer disease) 02/2014- Tachycardia- Ulcer (HCC)- VertigoPAST SURGICAL HISTORYProcedure Laterality Date- COLONOSCOPY- LAP TOTAL COLECTOMY W/O PROCT. N/A 09/19/2015 Lap total colectomy with ileorectal anastomosis- MIDLINE INSERTION/CONSULT 08/10/2015- REMOVE TONSILS/ADENOIDS,<12 Y/O as child- SINUS SURGERY HX age 35- TUBAL LIGATION HX age 19FAMILY HISTORYProblem Relation Age of Onset- Heart Mother- Heart Father- Lipids Father- Diabetes Father- Hypertension Mother- Arthritis SisterSocial History:Social HistorySubstance Use Topics- Smoking status: Former Smoker Packs/day: 0.50 Years: 20.00 Types: Cigarettes Quit date: 07/27/2003- Smokeless tobacco: Never Used- Alcohol use Yes Comment: drinks a bottle of wine daily; sometimes Naik current facility-administered medications on file prior to encounter.Current Outpatient Prescriptions on File Prior to Encounter:iv contrast (radiology procedure) CT ABD/PEL -Inject, intravenously, oncefor 1 dose.No IV access, insert saline lock prior to the beginning ofsedation, infusion, injection of imaging exam. Discontinue saline lockpost exam. If Pt. has a central line or IVAD, may access foradministration according to line specific nursing protocol. Once exam iscomplete flush line and de-access according to line specific nursingprotocol in the CT contrast administration guidelines link.enteric contrast (radiology procedure) For CT ABD/PEL W IVCON Routineorder Administer, As Directed One Time Only, via Oral, Rectal, both Oraland Rectal, Enteric Tube, Stoma or Indwelling Catheter, Enteric Contrastas designated per enteric contrast guidelinesatorvastatin (LIPITOR) 10 mg tablet Take 10 mg by mouth once daily.Cetirizine 10 mg cap Take by mouth once daily.Omeprazole (PRILOSEC) 40 mg capsule Take 1 capsule by mouth once daily.(Patient taking differently: Take 40 mg by mouth twice daily.)METOPROLOL TARTRATE ORAL Take 50 mg by mouth twice daily.FLUoxetine HCl 20 mg tablet Take 40 mg by mouth once daily.traMADol 50 mg tablet Take 50 mg by mouth every 6 hours as needed.OTC PRODUCT Indications: OSTEO-BIFLEX Takes 2 PO QDInpatient medications reviewed in [facility].I have interviewed and examined the patient. I have reviewed the medicalrecord and/or the pre-anesthesia evaluation, pertinent labs, and testresults.Significant changes in the patient's condition since the History andPhysical, not otherwise documented in primary service progress notes: NoThis contains updated information obtained within 48 hours ofSurgery/Procedure.SIGNATURE: Joe Aguilar MD PATIENT NAME: Sofie AdrianDATE: January 09, 2017 : 11:50 AM PAGER/CONTACT #: Normal [facility] APTTon 01-09-2017 aPTT 28.1 s Normal 23.0-32.4 [facility] Comment on above: Result Comment: Unfractionated Heparin T herapeutic Ranges:Standard Heparin Nomogram: 53 to 78 seconds (anti-Xa level of 0.3 to 0.7 U/ml)Low Dose/ACS Nomogram: 49 to 67 seconds (anti-Xa level of 0.2 to 0.5 U/ml)Stroke Treatment Nomogram: 49 to 67 seconds (anti-Xa level of 0.2 to 0.5 U/ml)Note: The APTT therapeutic range has been determined for the current lot of laboratory APTT reagent in use throughout the [facility]. Performed By: #### P T, PTT ####[facility] [place], [place] [phone] aPTT 26.8 s Normal 23.0-32.4 [facility] Comment on above: Result Comment: Unfractionated Heparin T herapeutic Ranges:Standard Heparin Nomogram: 53 to 78 seconds (anti-Xa level of 0.3 to 0.7 U/ml)Low Dose/ACS Nomogram: 49 to 67 seconds (anti-Xa level of 0.2 to 0.5 U/ml)Stroke Treatment Nomogram: 49 to 67 seconds (anti-Xa level of 0.2 to 0.5 U/ml)Note: The APTT therapeutic range has been determined for the current lot of laboratory APTT reagent in use throughout the [facility]. Performed By: #### C BC, PT, PTT, BMP, MG1, PHOS ####[facility] [place], [place] [phone] aPTT 27.7 s Normal 23.0-32.4 [facility] Comment on above: Result Comment: Unfractionated Heparin T herapeutic Ranges:Standard Heparin Nomogram: 53 to 78 seconds (anti-Xa level of 0.3 to 0.7 U/ml)Low Dose/ACS Nomogram: 49 to 67 seconds (anti-Xa level of 0.2 to 0.5 U/ml)Stroke Treatment Nomogram: 49 to 67 seconds (anti-Xa level of 0.2 to 0.5 U/ml)Note: The APTT therapeutic range has been determined for the current lot of laboratory APTT reagent in use throughout the [facility]. Performed By: #### C BC, PT, PTT, BMP, MG1, PHOS ####[place] [id number] [place], [place] [phone] BRIEF OP NOTon 01-09-2017 BRIEF OP NOT HNO ID: [id number] thor: Tanner Laneervice: General SurgeryAuthor Type: ResidentType: Brief Op NoteFiled: 01/09/2017 2:26 PMNote Text:BRIEF OPERATIVE / PROCEDURE NOTELOG ID: [id number]/Procedure Date: 01/09/2017Incision/Procedure Start Time: 12:48 PMIncision Close/Procedure End Time: 2:08 PMSurgeon(s)/Proceduralist(s) and Materials Recycler(s):Surgeon(s) and Role:Panel 1: * Adis Landeros - Primary * Tanner Ordoñez - Resident - AssistingPanel 2: * Adis Landeros - PrimaryProcedure(s):Laparoscopi c lysis of adhesionsAnesthesia: GeneralFindings: strangulated internal hernia caused by interloop adhesions,bowel appeared hemorrhagic but viable, doppler performed with strongsignalsEstimated Blood Loss: 10 ccSpecimens: NoneDrains: 19 Fr round drain in LLQWound Classification: Class 1, operative wound clean, non-traumatic, withno inflammation encountered, no break in technique, gastrointestinal andgenitor-urinary tracts not enteredPre-Op/Pre-Procedure Diagnosis: Small bowel obstructionPost-Op/Post-Procedu re Diagnosis: Small bowel obstruction, internal herniaSIGNATURE: Tanner Ordoñez MD PATIENT NAME: Sofie AdrianDATE: January 09, 2017 : 2:24 PM PHONE: [phone] Normal [facility] Basic Metabolic Panlon 01-09 Anion gap 18 mmol/L Normal 9-18 [facility] Comment on above: Performed By: #### CBC, PT, PTT, BMP, MG 1, PHOS ####[place] [phone] Calcium 8.6 mg/dL Normal 8.5-10.5 [facility] Comment on above: Performed By: #### CBC, PT, PTT, BMP, MG 1, PHOS ####[place] [phone] Chloride 102 mmol/L Normal 98-110 [facility] Comment on above: Performed By: #### CBC, PT, PTT, BMP, MG 1, PHOS ####[place] [phone] CO2 18 mmol/L Low 23-32 [facility] Comment on above: Performed By: #### CBC, PT, PTT, BMP, MG 1, PHOS ####[place] [phone] Creatinine 0.58 mg/dL Low 0.70-1.40 [facility] Comment on above: Performed By: #### CBC, PT, PTT, BMP, MG 1, PHOS ####[place] [phone] eGFR (non-black) mL/min/{1.73_m2} Normal >60 [facility] Comment on above: Performed By: #### CBC, PT, PTT, BMP, MG 1, PHOS ####[place] [phone] Glucose mass conc 171 mg/dL High 65-100 [facility] Comment on above: Performed By: #### CBC, PT, PTT, BMP, MG 1, PHOS ####[place] [phone] Potassium molar conc 3.8 mmol/L Normal 3.5-5.0 [facility] Comment on above: Performed By: #### CBC, PT, PTT, BMP, MG 1, PHOS ####[place] [address] Sodium 138 mmol/L Normal 132-148 [facility] Comment on above: Performed By: #### CBC, PT, PTT, BMP, MG 1, PHOS ####[place] [address] Urea nitrogen 12 mg/dL Normal 8-25 [facility] Comment on above: Performed By: #### CBC, PT, PTT, BMP, MG 1, PHOS ####[place] [address] Anion gap 16 mmol/L Normal 9-18 [facility] Comment on above: Performed By: #### CBC, PT, PTT, BMP, MG 1, PHOS ####[place] [address] Calcium 8.8 mg/dL Normal 8.5-10.5 [facility] Comment on above: Performed By: #### CBC, PT, PTT, BMP, MG 1, PHOS ####[place] [address] Chloride 100 mmol/L Normal 98-110 [facility] Comment on above: Performed By: #### CBC, PT, PTT, BMP, MG 1, PHOS ####[place] [address] CO2 20 mmol/L Low 23-32 [facility] Comment on above: Performed By: #### CBC, PT, PTT, BMP, MG 1, PHOS ####[place] [address] Creatinine 0.54 mg/dL Low 0.70-1.40 [facility] Comment on above: Performed By: #### CBC, PT, PTT, BMP, MG 1, PHOS ####[place] [address] eGFR (non-black) mL/min/{1.73_m2} Normal >60 [facility] Comment on above: Performed By: #### CBC, PT, PTT, BMP, MG 1, PHOS ####[place] [address] Glucose mass conc 159 mg/dL High 65-100 [facility] Comment on above: Performed By: #### CBC, PT, PTT, BMP, MG 1, PHOS ####[place] [address] Potassium molar conc 3.8 mmol/L Normal 3.5-5.0 [facility] Comment on above: Performed By: #### CBC, PT, PTT, BMP, MG 1, PHOS ####[place] [address] Sodium 136 mmol/L Normal 132-148 [facility] Comment on above: Performed By: #### CBC, PT, PTT, BMP, MG 1, PHOS ####[place] [address] Urea nitrogen 13 mg/dL Normal 8-25 [facility] Comment on above: Performed By: #### CBC, PT, PTT, BMP, MG 1, PHOS ####[place] [phone] CASE MANAGEMon 01-09-2017 CASE MANAGEM HNO ID: [id number] thor: Kathryn Melvin (Lsw)uloService: Care ManagementAuthor Type: Social WorkerType: Care Mgt Progress NoteFiled: 01/09/2017 3:10 PMNote Text:CARE MANAGEMENT PROGRESS NOTESERVICE DATE: 01/09/2017SERVICE TIME: 3:00 PM LOS: 1 dayNeeds Prior to Discharge: To Be Determined;Other: See Comment ([facility] Pt currently at surgery. CM willtry again another time. )SIGNATURE: NYASIA Higgins PATIENT NAME: Sofie AdrianDATE: January 09, 2017 : 3:10 PM PAGER/CONTACT #: [phone] Normal [facility] CBCon 01-09-2017 Erythrocyte distribution width Auto Ratio (RBC) 12.4 % Normal 11.5-15.0 [facility] Comment on above: Performed By: #### CBC, PT, PTT, BMP, MG 1, PHOS ####[place] [address] Erythrocytes (RBC) 3.82 10*6/uL Low 3.90-5.20 [facility] Comment on above: Performed By: #### CBC, PT, PTT, BMP, MG 1, PHOS ####[place] [address] Hematocrit (HCT) 37.2 % Normal 36.0-46.0 [facility] Comment on above: Performed By: #### CBC, PT, PTT, BMP, MG 1, PHOS ####[place] [address] Hemoglobin mass conc (Bld) 12.3 g/dL Normal 11.5-15.5 [facility] Comment on above: Performed By: #### CBC, PT, PTT, BMP, MG 1, PHOS ####[place] [address] MCH 32.2 pG Normal 26.0-34.0 [facility] Comment on above: Performed By: #### CBC, PT, PTT, BMP, MG 1, PHOS ####[place] [address] MCHC mass conc (RBC) 33.1 g/dL Normal 30.5-36.0 [facility] Comment on above: Performed By: #### CBC, PT, PTT, BMP, MG 1, PHOS ####[place] [address] MCV 97.4 fL Normal 80.0-100.0 [facility] Comment on above: Performed By: #### CBC, PT, PTT, BMP, MG 1, PHOS ####[place] [address] Platelet mean volume (PMV) 11.0 fL Normal 9.0-12.7 [facility] Comment on above: Performed By: #### CBC, PT, PTT, BMP, MG 1, PHOS ####[place] [address] Platelets 180 10*3/uL Normal 150-400 [facility] Comment on above: Performed By: #### CBC, PT, PTT, BMP, MG 1, PHOS ####[place] [address] WBC (Leukocytes) 13.84 10*3/uL High 3.70-11.00 [facility] Comment on above: Performed By: #### CBC, PT, PTT, BMP, MG 1, PHOS ####[place] [address] Erythrocyte distribution width Auto Ratio (RBC) 12.7 % Normal 11.5-15.0 [facility] Comment on above: Performed By: #### CBC, PT, PTT, BMP, MG 1, PHOS ####[address] Erythrocytes (RBC) 3.80 10*6/uL Low 3.90-5.20 [facility] Comment on above: Performed By: #### CBC, PT, PTT, BMP, MG 1, PHOS ####[place] [phone] Hematocrit (HCT) 36.7 % Normal 36.0-46.0 [facility] Comment on above: Performed By: #### CBC, PT, PTT, BMP, MG 1, PHOS ####[place] [phone] Hemoglobin mass conc (Bld) 12.4 g/dL Normal 11.5-15.5 [facility] Comment on above: Performed By: #### CBC, PT, PTT, BMP, MG 1, PHOS ####[place] [id number] MCH 32.6 pG Normal 26.0-34.0 [facility] Comment on above: Performed By: #### CBC, PT, PTT, BMP, MG 1, PHOS ####[place] [address] MCHC mass conc (RBC) 33.8 g/dL Normal 30.5-36.0 [facility] Comment on above: Performed By: #### CBC, PT, PTT, BMP, MG 1, PHOS ####[place] [address] MCV 96.6 fL Normal 80.0-100.0 [facility] Comment on above: Performed By: #### CBC, PT, PTT, BMP, MG 1, PHOS ####[place] [address] Platelet mean volume (PMV) 11.1 fL Normal 9.0-12.7 [facility] Comment on above: Performed By: #### CBC, PT, PTT, BMP, MG 1, PHOS ####[place] [address] Platelets 186 10*3/uL Normal 150-400 [facility] Comment on above: Performed By: #### CBC, PT, PTT, BMP, MG 1, PHOS ####[address] WBC (Leukocytes) 10.34 10*3/uL Normal 3.70-11.00 [facility] Comment on above: Performed By: #### CBC, PT, PTT, BMP, MG 1, PHOS ####[place] [phone] CONSULTon 01-09-2017 CONSULT HNO ID: [id number] thor: Araceli Gamez (Rn) RAJ Mcneilervice: Wound/OstomyAuthor Type: Registered NurseType: ConsultsFiled: 01/09/2017 4:01 PMNote Text:ANCILLARY OSTOMY CARE PROGRESS NOTESERVICE DATE: 01/09/2017SERVICE TIME: 1145ANCILLARY OSTOMY CARE NOTESERVICE DATE: 01/09/2017SERVICE TIME: 4:00 PMOstomy consult received from Colorectal surgical team for Stoma Marking .Patient assessed in the sitting, standing, bending and supine positions.Deep creases/folds noted at level of umbilicus, as well as, low in thepubic area; however, there is suitable surface area in all quadrants formarking. 4 sites/one in each quadrant were chosen: on the flattestpossible surface/away from deep creases and folds, in the patient's visualfield, within the rectus muscle/within the nipple line, and away from theumbilicus/rib cage. Cleansed with alcohol and marked with single usesurgical marker.Assessment/Plan-stoma site marking complete-staff midwife to monitor daniel and place Tegaderm clear transparent dressingsas needed-Plan per surgical team, will remain available as needed.To contact Wound/Ostomy Care, please call the Wound Care Hotline at [phone] leave a message.SIGNATURE: Araceli Mcneil RN PATIENT NAME: Sofie AdrianDATE: January 09, 2017 : 4:00 PM PAGER/CONTACT #: [phone] [facility] HISTORY PHYSICALon HISTORY PHYSICAL HNO ID: [id number] thor: TREY Wolfe Reservice: ColorectalAuthor Type: ResidentType: HANDPFiled: 01/09/2017 12:05 AMNote Text:HISTORY AND PHYSICAL EXAMINATIONSERVICE DATE: 01/08/2017SERVICE TIME:PRIMARY CARE PHYSICIAN: TIERNEY MercerJECTSUKH COMPLAINT:HPI: This is a 61 year old female PMH HTN, HLD, PUD, COPD and h/o multipleGI bleeding PSH L TAC with DEONNA 08/2015 who presents with sharp crampingabdominal pain that started at Thursday night associtaed with nausea andvomiting. She Report frequent BM on Thursday (10 times). She went to ED at8:30 pm on the same day and they scanned her then discharged but shereturned back next morning for worsenuing pain where she got another CTscan suggestive of SBO. She was referred from OSH to for furthertreatment.FUNCTIONAL STATUS: IndependentPAST MEDICAL HISTORYDiagnosis Date- Acid reflux- Alcohol abuse Bottle of wine daily- Arthritis- Carotid stenosis medical management- COPD (chronic obstructive pulmonary disease) (HCC) mild obstruction on PFT's 09/2013- Former smoker 10 pack years, quit 2003- High cholesterol- History of rheumatic fever- Hypertension- PUD (peptic ulcer disease) 02/2014- Tachycardia- Ulcer (HCC)- VertigoPAST SURGICAL HISTORYProcedure Laterality Date- COLONOSCOPY- MIDLINE INSERTION/CONSULT 08/10/2015- REMOVE TONSILS/ADENOIDS,<12 Y/O as child- SINUS SURGERY HX age 35- TUBAL LIGATION HX age 19FAMILY HISTORYProblem Relation Age of Onset- Heart Mother- Heart Father- Lipids Father- Diabetes Father- Hypertension Mother- Arthritis SisterSocial HistorySubstance Use Topics- Smoking status: Former Smoker Packs/day: 0.50 Years: 20.00 Types: Cigarettes Quit date: 07/27/2003- Smokeless tobacco: Never Used- Alcohol use Yes Comment: drinks a bottle of wine daily; sometimes morePrescriptions Prior to Admission:iv contrast (radiology procedure) CT ABD/PEL -Inject, intravenously, oncefor 1 dose.No IV access, insert saline lock prior to the beginning ofsedation, infusion, injection of imaging exam. Discontinue saline lockpost exam. If Pt. has a central line or IVAD, may access foradministration according to line specific nursing protocol. Once exam iscomplete flush line and de-access according to line specific nursingprotocol in the CT contrast administration guidelines link. Disp: 1 EachRfl: 0enteric contrast (radiology procedure) For CT ABD/PEL W IVCON Routineorder Administer, As Directed One Time Only, via Oral, Rectal, both Oraland Rectal, Enteric Tube, Stoma or Indwelling Catheter, Enteric Contrastas designated per enteric contrast guidelines Disp: 1 Each Rfl: 0atorvastatin (LIPITOR) 10 mg tablet Take 10 mg by mouth once daily. Disp:Rfl: 09/18/2015 at 2100Cetirizine 10 mg cap Take by mouth once daily. Disp: Rfl: 09/18/2015 [id number] (PRILOSEC) 40 mg capsule Take 1 capsule by mouth once daily.(Patient taking differently: Take 40 mg by mouth twice daily.) Disp: 30capsule Rfl: 4 09/19/2015 at 0700METOPROLOL TARTRATE ORAL Take 25 mg by mouth. Disp: Rfl: 09/19/2015 [id number] HCl 20 mg tablet Take 40 mg by mouth once daily. Disp: Rfl:09/19/2015 at 0700traMADol 50 mg tablet Take 50 mg by mouth every 6 hours as needed. Disp:Rfl: 09/18/2015 at 2100OTC PRODUCT Indications: OSTEO-BIFLEX Takes 2 PO QD Disp: Rfl: 09/12/2015ALLERGIESAllergen Reactions- Penicillins Vomiting- Sulfa (Sulfonamide * RashCOMPLETE REVIEW OF SYSTEMS:GENERAL: No weight loss, malaise or feversHEENT: Negative for frequent or significant headaches, No changes inhearing or vision, no nose bleeds or other nasal problemsRESPIRATORY: Negative for cough, hemoptysis, wheezing, COPD, dyspnea orshortness of breathCARDIOVASCULAR: Negative for chest pain, leg swelling, hypertension, CHFor palpitationsGU: No history of dysuria, frequency or incontinenceMUSCULOSKELETAL: Negative for joint pain or swelling, back pain or musclepainHEMATOLOGY/LYMPHOLOGY : Negative for prolonged bleeding, bruising easily orswollen nodesENDOCRINE: Negative for cold or heat intolerance, polyuria, polydipsia andgoiterNEURO: No history of headaches, syncope, paralysis, seizures or tremorsOBJECTIVEPHYSICAL EXAM:GENERAL: Alert, no distress, cooperativeHEAD/SINUSES: No significant findingsLUNGS: Lungs clear to auscultation, Good diaphragmatic excursionCARDIAC: Normal S1 and S2; no rubs, murmurs, or gallopsABDOMEN: Abdomen soft, moderately distended, tender LLQ, BS normal, Nomasses or organomegalyEXTREMITIES: Extremities normal, no deformities, edema, clubbing or skindiscoloration. Good capillary refill., No ulcersNEURO: CKa0Enkngul Vitals for the past 24 hrs: BP Temp Temp src Pulse Resp BnN75701/08/17 2301 151/92 36.4 ?C (97.6 ?F) Oral 89 16 92 %There is no height or weight on file to calculate BMI.DATA:Diagnostic tests reviewed for today's visit:Most recent labs and imaging results.ASSESSMENT/PLAN61 years female PMH HTN, HLD, PUD, COPD, PSH L TAC with DEONNA 08/2015 whopresents with cramping abdominal pain associated with nausea and vomiting.Abdomen is moderately distended with LLQ ttp. S.Lactate 1. Concern forSBO.-[facility]-NPO, NGT-IVF @ 100 ml/hr-strict I AND O-Pain meds: tylenol and morphine-Zofran available PRN-KUB stat to confirm NGT placement-Lab, type and screen, stat-DVT prophylaxis: SCD and SQHSIGNATURE: Eloise Langley MD PATIENT NAME: Sofie AdrianDATE: January 08, 2017 : 11:15 PM PAGER/CONTACT #: [phone] Normal [facility] Magnesiumon 01-09-2017 Magnesium 1.7 mg/dL Normal 1.7-2.6 [facility] Comment on above: Performed By: #### CBC, PT, PTT, BMP, MG 1, PHOS ####[place] [id number] [place], [place] [phone] Magnesium 1.9 mg/dL Normal 1.7-2.6 [facility] Comment on above: Performed By: #### CBC, PT, PTT, BMP, MG 1, PHOS ####[address] [phone] NURSING PROGon 01-09-2017 NURSING PROG HNO ID: [id number] thor: Rosi (Rn) Aurelio, RNService: (none)Author Type: Registered NurseType: Nursing Progress NoteFiled: 01/09/2017 10:16 AMNote Text: Nursing Progress NotePatient Name: Sofie AdrianMRN: [id number] [id number] Daily Note:pt is axox3, on room air, up with assist. Ng tube in place.Plan for surgery today. No needs voiced at this time. Will continue tomonitor the patient. Updated daughter on patient's status, ok'd bypatient.[facility], [facility]. Updated SENIOR TELECOMMUNICATIONS TECHNICIAN medication list and also c/o indigestion.Thanks. Rosi, KADEN [id number] note was completed by: Rosi Carey RN [facility] NURSING PROG HNO ID: [id number] thor: Melissa Saucedo (Rn) Elva Pondice: (none)Author Type: Registered NurseType: Nursing Progress NoteFiled: 01/09/2017 5:07 AMNote Text: Nursing Progress NotePatient Name: Sofie AdrianMRN: [id number] [facility] 0400 Patient complaining of abdominal pain 10/ moaning at intervalsand holding her stomach. Patient last medicated with Dilaudid 0.5 mg [id number]. Patient states it doesn't last very long. Text message sent toSurgical resident to notify.0415 Patient medicated with oxycodone 5 mg tablet as instructed bysurgical resident. NG clamped when patient took tablet.0515 NG reconnected to low suction. Patient states the Oxycodone noteffective for pain.This note was completed by: Melissa Pond RN [facility] NURSING PROG HNO ID: [id number] thor: Melissa Saucedo (Rn) Elva Pondice: (none)Author Type: Registered NurseType: Nursing Progress NoteFiled: 01/08/2017 11:01 PMNote Text: Nursing Progress NotePatient Name: Sofie AdrianMRN: [id number] Location: [address]/AF-KS2P-13 Trans chano Note:Patient transferred into room/unit 321 from [facility] in stablecondition. Actions taken: No futher actions taken at this time. Willcontinue to monitor and check with patient. Call placed to surgicalresident for orders.This note was completed by: Melissa oPnd RN Normal [facility] OPERATIVE NOon 01-09-2017 OPERATIVE NO HNO ID: [id number] thor: Adis LanderosService: General SurgeryAuthor Type: PhysicianType: Operative ReportFiled: 01/12/2017 2:34 PMNote Text:[facility] - Operative ReportSOFIE ADRIAN CDOB: 1955 AGE: 61 SEX: FMRN: [id number] ACCTNUM: [id number] SVC: [facility] LOCATION: [address] PHYSICIAN: Adis Landeros M.D.DATE OF PROCEDURE: 01/09/2017PREOPERATIVE DIAGNOSIS: Small bowel obstruction.POSTOPERATIVE DIAGNOSIS: Same. Strangulated internal hernia.NAME OF OPERATION: Diagnostic laparoscopy and lysis of adhesions.SURGEON: Adis Landeros M.D.RETAIL OFFICE ASSOCIATE: Tanner Ordoñez M.D.ANESTHESIA: General.ESTIMATED BLOOD LOSS: Minimal.COMPLICATIONS: None immediate.DISPOSITION: Recovery in stable condition.INDICATIONS: Briefly, the patient is a 61-year-old female who hadunderwent laparoscopic total colectomy in the past for lower GI bleed.She presented to an outside hospital with severe abdominal pain, nausea,and vomiting. She was found to have small bowel obstruction and wastransferred to our hospital, where she was found to have someperitonitis and increased abdominal pain. Therefore, we elected toproceed to the operating room for diagnostic laparoscopy, possiblelaparotomy. The patient agreed to proceed, signed the informed consent.PROCEDURE: The patient was taken to the operative room, placed on theanesthesia table in supine position. After induction of anesthesia, thearea of the abdomen was prepped and draped in normal sterile fashion.After appropriate time-out, a small subumbilical incision was made. Theabdomen was entered using routine open Emmanuel technique. Initialvisualization revealed distended loops of bowel and what appears janee an internal hernia with near strangulated bowel in the left lowerquadrant of the abdomen. Two 5-mm ports were inserted underdirect visualization on the right side of the abdomen at the anterioraxillary line. We found the adhesions that were causing the internalhernia from the small bowel to the abdominal wall. These adhesionswere taken down sharply with release of the internal hernia, and weobserved the bowel that appeared to be near necrosed starting toappear more viable and with pink purplish discoloration that continued to resolve as we observed the obstruction resolve with air extending into the distal small bowel. We then ran the small bowel from the pelvisall the way proximally and we observed this area of near strangulatedbowel starting to show more and more signs of viability as weproceeded with the surgery. Some more adhesions of bowel to theabdominal wall were taken down, and we then ran the bowel fromproximal to distal and distal to proximal ensuring that the obstructionwas completely relieved. The portion of the bowel that appeared to bewith near ischemic changes measured about 30 cm, and we inserted aDoppler probe into the abdominal cavity through the Memanuel port, andunder direct visualization, we probed the antimesenteric border ofthis bowel, with audible palpable signal from the antimesenteric borderof the entire questionable ischemic small bowel. We confirmed thatthe bowel was viable and was not necrosed. There was no evidence ofperforation. The bowel wall was thickened with some hemorrhagic ischemiawhich as stated above was resolving as we proceeded with the surgeryand with good triphasic dopplerable signal at the end of the case.With that, the abdomen was irrigated with 2 liters of normal saline.The returning effluent was completely clear. There was no evidenceof bile or succus, and the rest of the bowel appeared to be viablewithout any injury. Of note, the patient's liver appeared to becirrhotic with macronodular changes. With that, all ports removed under direct visualization. After we placed a drain in the pelvis, b28-Tuwfjl drain made to mature through the lower 5-mm port on the rightside of the abdomen. The drain was secured to the skin using 3-0nylon, and the subumbilical fascia was approximated lywximenefe-gk-lolfm 0 Polysorb suture. All port sites were infiltrated with subcu Marcaine, approximated with subcuticular 4-0 Biosyn, andthe application of Exofin. The patient was extubated, transferred torecovery in stable condition with all counts of sponges, needles, andinstruments correct at the end of the case. The patient immediatelyverbalized immediate relief from her abdominal pain upon waking upfrom surgery, and we will observe her hospital course after thisoperation. I am Dr. Landeros, the attending physician. I was presentthrough the entire operation.Adis Landeros M.D.General SurgeryDA:[id number]: 01/09/2017 15:07:23T: 01/10/2017 01:35:34Job #: [id number] [facility] PROGRESSon 01-09-2017 Cholesterol HNO ID: [id number] thor: Tanner (Mihaela) Arianaervice: General SurgeryAuthor Type: ResidentType: Progress NotesFiled: 01/09/2017 6:52 PMNote Text:Post-operative checkSubjective: No acute events. Pain controlled. No nausea/vomiting.Objective:Blood pressure 112/66, pulse 90, temperature 36.9 ?C (98.4 ?F),temperature source Oral, resp. rate 17, height 154.9 cm (5' 1 ), avofod98.1 kg (141 lb 6.4 oz), SpO2 97 %.General: NAD, alert, orientedLungs: nonlabored breathingAbdomen: soft, nondistended, periincisional and left sided tenderness,incisions C/D/IExtremities: warm, well perfusedAssessment and plan:61 year old female with SBO and strangulated internal hernia s/plaparoscopic lysis of adhesions. Doing well- NPO with IV fluids- NG to LIWS- Morphine HOME HEALTH AIDE CAREGIVER, tylenol for pain- SCD's and SQH for DVT prophylaxis- Encourage incentive spirometry and ambulationTanner Ordoñez MDGenepremier health at[facility] Surgery ResidentPager [phone] [facility] PROGRESS HNO ID: [id number] thor: Adis LanderosService: ColorectalAuthor Type: PhysicianType: Progress NotesFiled: 01/09/2017 12:21 PMNote Text:Sofie [id number] SERVICE: Teresa MartinesenteSUBJECTIVEPatient is in a lot of pain, writhing in her bedNG in place, with moderately thick outputNo flatus no BMOBJECTIVEI/O:Date 01/08/17 07 - 01/09/17 0659 01/09/17 07 - 01/10/17 0659Shift 3279-8229 5166-6344 2912-0323 24 Hour Total 2240-4532 [id number] 24 Hour TotalINTAKE IV 524 524 NS 0.9% 524 524 Shift Total 524 524OUTPUT Urine 300 300 350 350 Void (ml) 300 300 350 350 Tubes 100 100 GI Tube Output (GI Feed/Drain Nasogastric Tube Left Nare 01/08/17Present on Admission) 100 100 Shift Total 400 400 350 350Weight (kg) 64.1 64.1 64.1 64.1 64.1 64.124 hr Vitals:Temp Av.4 ?C (97.6 ?F) Min: 36.4 ?C (97.6 ?F) Max: 36.4 ?C (97.6?F)Pulse Av Min: 89 Max: 111Cuff BP Min: 122/72 Max: 151/92Resp Av.3 Min: 16 Max: 17SpO2 Av.5 % Min: 92 % Max: 95 %Pain Score: 10/10Physical Exam:VS: BP 140/73 Pulse 96 Temp 36.4 ?C (97.6 ?F) (Oral) Resp 17 Ht154.9 cm (5' 1 ) Wt 64.1 kg (141 lb 6.4 oz) SpO2 94% BMI 26.72 kg/b8DWSTFBK: Alert, no distress, cooperativeLUNGS: Lungs clear to auscultation, Good diaphragmatic excursionCARDIAC: Normal S1 and S2; no rubs, murmurs, or gallopsABDOMEN: Abdomen soft, moderately distended, diffusely tender with MPT inLLQ, BS increased, No masses or organomegaly, NG tube with bileous outputEXTREMITIES: Extremities normal, no deformities, edema, clubbing or skindiscoloration.NEURO: DYp4Ivbg:Current Facility-Administered Medications:piperacillin-tazoba ctam 3.375 g in dextrose (iso-osmotic) 50 mL (ZOSYN)3.375 g INTRAVENOUS q 6 H Bessie S (Pa) Miglionicomorphine HOME HEALTH AIDE CAREGIVER 1 mg/mL in NaCl 0.9% 100 mL INTRAVENOUS CONTINUOUS Bessie S(Pa) Miglionicomorphine 1 mg/mL HOME HEALTH AIDE CAREGIVER CLINICIAN DOSE 1 mg 1 mg INTRAVENOUS q 6 H PRNMelissa S (Pa) MiglionicoFLUoxetine 40 mg cap(s) (PROzac) 40 mg ORAL DAILY Sahned (Res) MD Korin40 mg at 01/09/17 0757NaCl 0.9% iv infusion 125 mL/hr INTRAVENOUS CONTINUOUS Bessie S (Pa)Miglionico Last Rate: 125 mL/hr at 01/09/17 075 125 mL/hr at 066660lroqekfkjvy 4 mg tab(s) (ZOFRAN) 4 mg ORAL q 6 H PRN Sahned (Res) MD KorinOrondansetron (PF) 4 mg injection (ZOFRAN) 4 mg INTRAVENOUS q 6 H PRN Sahned(Res) Sherrill Langleycetaminophen 650 mg tab(s) (TYLENOL) 650 mg ORAL q 6 H PRN Sahned (Res)MD Korinheparin 5,000 Units injection 5,000 Units SUBCUTANEOUS q 12 H Sahned (Res)MD Korin 5,000 Units at 01/09/17 075metoprolol tartrate (short acting) 12.5 mg tab(s) (LOPRESSOR) 12.5 mg ORALq 12 H Sahned (Res) MD Korin 12.5 mg at 01/09/17 0757Labs:CBC, Coags, BMP, Mg, PhosRecent Labs 345WBC 13.84* 10.34HB 12.3 12.4HCT 37.2 36.7PLT 180 186INR 1.1 1.1APTT 26.8 27.7NA 138 136K 3.8 3.8CHLOR 102 100CO2 18* 20*BUN 12 13CREAT 0.58* 0.54*GLUC 171* 159*CA 8.6 8.8MG 1.7 1.9P 3.0 3.9Liver Function, Amylase, AND LipaseImaging:XR abd1. ?NG tube coiled within the gastric fundus2. ?A few mildly distended gas filled loops of small bowel in the upperabdomen.ASSESSMENT AND PLAN61 years female PMH HTN, HLD, PUD, COPD, PSH L TAC with DEONNA 08/2015presenting with signs, symptoms and diagnostic imaging findingscommensurate with SBO.- Pre-opped in case surgical intervention is warranted- IVF: 125 cc/hr of NS- Antibiotics: Start Zosyn D1- Diet : NPO- Pain management: Start Morphine HOME HEALTH AIDE CAREGIVER, Tylenol- Nausea management: Zofran- DVT prophylaxis: Heparin- Trujillo status: Please place trujillo for better hemodynamic monitoring- Encourage IS and ambulation- Strict IANDOs- Seen and discussed with senior resident, will discuss with staffAkhil Weatehrs MD MPHPGY1, Department of General SurgeryPager: Alex [facility] Centerept2016 9:12 AMSurgery attendingI have seen and examined the patient with the house staff. Agree with keycomponents of resident's note, care plan and decision making for the daydiscussed. Pt w/ increased pain and persistent SBO this AM. Will proceedw/ diag lap/poss laparotomy. Aspects of the procedure explained to pt indetails including all risks, benefits, and alternatives. SHe understandsthe risks of bleeding, infection, bowel injury and possibility ofconversion to an open procedure and other complications related to surgeryand/or anesthesia.Adis Landeros, Evan Landeros, [facility] SHAWNEEept2016 12:20 PM Normal [facility] Phosphoruson 01-09-2017 Phosphate 3.0 mg/dL Normal 2.5-4.5 [facility] Comment on above: Performed By: #### CBC, PT, PTT, BMP, MG 1, PHOS ####[facility] [place], [place] [phone] Phosphate 3.9 mg/dL Normal 2.5-4.5 [facility] Comment on above: Performed By: #### CBC, PT, PTT, BMP, MG 1, PHOS ####[place] [id number] [place], [place] [phone] Protimeon 01-09-2017 INR Coag RelTime (Bld) 1.1 {INR} Normal 0.9-1.3 [facility] Comment on above: Result Comment: Vitamin K Antagonist (VK A) Therapeutic Range: INR 2 to 3 (Target INR of 2.5)Note: For patients treated with VKA drugs, such as warfarin, the [employer] 2012 Guideline recommends a therapeutic INR range of 2 to 3 (target INR of 2.5). This recommendation includes high-risk patients with antiphospholipid syndrome with previous arterial or venous thromboembolism, current-generation mechanical or bioprosthetic aortic heart valve replacement.Note: Patients with mechanical aortic valve replacement and additional risk factors for thromboembolic events (atrial fibrillation, previous thromboembolism, LV dysfunction, hypercoagulable conditions) or an older generation mechanical AVR (i.e., ball in-Cage) or any mechanical MVR should have a INR therapeutic range of 2.5 to 3.5 (target INR of 3).Dinesh LOVE, et al. Chest 2012, 141:7S-47SNadeen LIU et al. [facility] 2017, 70: 252-289 Performed By: #### P T, PTT ####[place] [id number] [place], [place] [phone] PT Sec 11.6 sec Normal 9.7-13.0 [facility] Comment on above: Performed By: #### PT, PTT ####[address] [phone] INR Coag RelTime (Bld) 1.1 {INR} Normal 0.9-1.3 [facility] Comment on above: Result Comment: Vitamin K Antagonist (VK A) Therapeutic Range: INR 2 to 3 (Target INR of 2.5)Note: For patients treated with VKA drugs, such as warfarin, the [place] 2012 Guideline recommends a therapeutic INR range of 2 to 3 (target INR of 2.5). This recommendation includes high-risk patients with antiphospholipid syndrome with previous arterial or venous thromboembolism, current-generation mechanical or bioprosthetic aortic heart valve replacement.Note: Patients with mechanical aortic valve replacement and additional risk factors for thromboembolic events (atrial fibrillation, previous thromboembolism, LV dysfunction, hypercoagulable conditions) or an older generation mechanical AVR (i.e., ball in-Cage) or any mechanical MVR should have a INR therapeutic range of 2.5 to 3.5 (target INR of 3).Dinesh LOVE et al. Chest 2012, 141:7S-47SNadeen LIU et al. [facility] 2017, 70: 252-289 Performed By: #### C BC, PT, PTT, BMP, MG1, PHOS ####[place] [id number] [place], [place] [phone] PT Sec 11.4 sec Normal 9.7-13.0 [facility] Comment on above: Performed By: #### CBC, PT, PTT, BMP, MG 1, PHOS ####[place] [address] [place], [place] [phone] INR Coag RelTime (Bld) 1.1 {INR} Normal 0.9-1.3 [facility] Comment on above: Result Comment: Vitamin K Antagonist (VK A) Therapeutic Range: INR 2 to 3 (Target INR of 2.5)Note: For patients treated with VKA drugs, such as warfarin, the [place] 2012 Guideline recommends a therapeutic INR range of 2 to 3 (target INR of 2.5). This recommendation includes high-risk patients with antiphospholipid syndrome with previous arterial or venous thromboembolism, current-generation mechanical or bioprosthetic aortic heart valve replacement.Note: Patients with mechanical aortic valve replacement and additional risk factors for thromboembolic events (atrial fibrillation, previous thromboembolism, LV dysfunction, hypercoagulable conditions) or an older generation mechanical AVR (i.e., ball in-Cage) or any mechanical MVR should have a INR therapeutic range of 2.5 to 3.5 (target INR of 3).Dinesh GH, et al. Chest 2012, 141:7S-47SNishmarielena LIU, et al. [facility] 2017, 70: 252-289 Performed By: #### C BC, PT, PTT, BMP, MG1, PHOS ####[facility] [place], [place] [phone] PT Sec 11.1 sec Normal 9.7-13.0 [facility] Comment on above: Performed By: #### CBC, PT, PTT, BMP, MG 1, PHOS ####[facility] [place], [place] [phone] Type and Screenon 01-09-2017 ABO/RH(D) Negative Normal [facility] Comment on above: Performed By: #### TSCR ####[facility] [id number] [place] [address] Antibody Screen Negative Normal [facility] Comment on above: Performed By: #### TSCR ####[facility] [id number] [place] [address] Urinalysis with Microscopico n 01-09-2017 Bilirubin, Urine Negative Normal Negative [facility] Comment on above: Performed By: #### UAWMIC ####[facility] [id number] [place] [address] Comments SEE COMMENT Normal [facility] Comment on above: Result Comment: Microscopic Examination Performed Performed By: #### U AWMIC ####[place] [address] Erythrocytes (RBC) Rare Critically abnormal Negative [facility] Comment on above: Performed By: #### UAWMIC ####[facility] [id number] [place] [address] Hemoglobin mass conc (Bld) Negative Normal [facility] Comment on above: Performed By: #### UAWMIC ####[facility] [id number] [place] [address] Leukest Trace Critically abnormal Negative [facility] Comment on above: Performed By: #### UAWMIC ####[facility] [id number] [place] [address] pH of blood 6.0 [pH] Normal 5.0-8.0 [facility] Comment on above: Performed By: #### UAWMIC ####[facility] [id number] [place] [address] Protein, Urine Negative Normal Negative [facility] Comment on above: Performed By: #### UAWMIC ####[facility] [id number] [place] [address] Specific [place], Ur 1.020 Normal 1.005-1.030 [facility] Comment on above: Result Comment: Result checked and verif ied Performed By: #### U AWMIC ####[facility] [place] [address] Urine, clarity Hazy Critically abnormal Clear [facility] Comment on above: Performed By: #### UAWMIC ####[facility] [id number] [place] [phone] Urine, color Yellow Normal Yellow [facility] Comment on above: Performed By: #### UAWMIC ####[facility] [id number] [place] [address] Urine, epithelial cells in sediment SEE COMMENT Critically abnormal Negative [facility] Comment on above: Result Comment: RareSquamous Epithelial Cells Performed By: #### U AWMIC ####[facility] [place] [address] Urine, glucose presence Negative Normal Negative [facility] Comment on above: Performed By: #### UAWMIC ####[facility] [id number] [place] [address] Urine, ketones presence Negative Normal Negative [facility] Comment on above: Performed By: #### UAWMIC ####[facility] [id number] [place] [address] Urine, mucus presence in sediment Present Normal [facility] Comment on above: Performed By: #### UAWMIC ####[facility] [id number] [place] [address] Urine, nitrite presence Negative Normal Negative [facility] Comment on above: Performed By: #### UAWMIC ####[facility] [id number] [place] [address] Urine, urobilinogen <2.0 Normal <2.0 [facility] Comment on above: Performed By: #### UAWMIC ####[facility] [id number] [place] [address] WBC (Leukocytes) 5-10 Critically abnormal Negative [facility] Comment on above: Performed By: #### UAWMIC ####[facility] [address]mhvcfi[address] [place], [place] [phone] XR ABDOMEN 1V SUPINEon 01-09 XR ABDOMEN 1V SUPINE * * *Final Report* * *DATE OF EXAM: Jan 09 2017 12:13AM FVX 5289 - XR ABDOMEN 1V SUPINE / REASON: Encounter for imaging study to confirm nasogastric (NG) tube placement * * * * Physician Interpretation * * * * EXAM: Supine abdominal radiograph(s)HISTORY: Check NG tube placementCOMPARISON: None.FINDINGS: Supine AP view the abdomen demonstrates a few mildly distended gas filled loops of small bowel in the upper abdomen. NG tube coiled within the gastric fundus. Lung bases are clear.. The visualized soft tissues are unremarkable. There are no abnormal calcifications. The bones are within normal limits for age. Please note this exam does not evaluate for free intraperitoneal air.IMPRESSION:1. NG tube coiled within the gastric fundus2. A few mildly distended gas filled loops of small bowel in the upper abdomen.Lokie Engineer: Stylistpick Transcribe Date/Time: Jan 09 2017 12:19ADictated by : GLENN MARTINEZ MDThis examination was interpreted and the report reviewed and electronically signed by: GLENN MARTINEZ MD on Jan 09 2017 12:20AM [id number] Normal [facility] XR CHEST 1V FRONTALon 2016 XR CHEST 1V FRONTAL * * *Final Report* * *DATE OF EXAM: Jan 09 2017 5:45AM [facility]X 5290 - XR CHEST 1V FRONTAL / REASON: Preop cardiovascular exam * * * * Physician Interpretation * * * * CHEST ONE VIEWIndications: Preop cardiovascular examComparison: Chest CT 11/09/2013RESULTS:1. Lines, Tubes, and Devices: The tip of a feeding tube is below the diaphragm over the gastric body.2. Lungs and Pleura: The lung volumes are diminished. There is mild obscuration of the left diaphragm.3. Cardiomediastinal silhouette: Within normal limits.4. Other: -IMPRESSION: Slightly diminished lung volumes with suggestion of mild left base atelectasis.Lokie Engineer: Stylistpick Transcribe Date/Time: Jan 09 2017 6:10ADictated by : SHAAN RADER MDThis examination was interpreted and the report reviewed and electronically signed by: SHAAN RADER MD on Jan 09 2017 6:13AM [id number] [facility] HOSPon 01-08-2017 HOSP Patient:Sofie Adrian CMRN: Height:5' 1 (1.549 m)Weight:141 lb 6.4 oz (64.139 kg)Outpatient Medications as of 01/09/17:amitriptyline (ELAVIL) 25 mg tabletcelecoxib (CELEBREX) 200 mg capsulehydroCHLOROthiazide (HYDRODIURIL, ESIDRIX) 25 mg tabletHYDROcodone-acetaminophen (NORCO) 5-325 mg per tabletmeloxicam (MOBIC) 15 mg tabletrOPINIRole (REQUIP) 2 mg tabletfebuxostat (ULORIC) 40 mg tabalbuterol HFA (VENTOLIN HFA) 90 mcg/actuation inhaleriv contrast (radiology procedure)enteric contrast (radiology procedure)atorvastatin (LIPITOR) 10 mg tabletCetirizine 10 mg capOmeprazole (PRILOSEC) 40 mg capsuleMETOPROLOL TARTRATE ORALFLUoxetine HCl 20 mg tablettraMADol 50 mg tabletOTC PRODUCTAdmission/Clinic Administered Medications as of 01/09/17:piperacillin-tazobactam 3.375 g in dextrose (iso-osmotic) 50 mL (ZOSYN)morphine HOME HEALTH AIDE CAREGIVER 1 mg/mL in NaCl 0.9% 100 mLmorphine 1 mg/mL HOME HEALTH AIDE CAREGIVER CLINICIAN DOSE 1 mgFLUoxetine 40 mg cap(s) (PROzac)NaCl 0.9% iv infusionondansetron 4 mg tab(s) (ZOFRAN)ondansetron (PF) 4 mg injection (ZOFRAN)acetaminophen 650 mg tab(s) (TYLENOL)heparin 5,000 Units injectionmetoprolol tartrate (short acting) 12.5 mg tab(s) (LOPRESSOR)Problem List:Iron deficiency anemia [D50.9]PUD (peptic ulcer disease) [K27.9]Carotid stenosis [I65.29]Vertigo [R42]Tachycardia [R00.0]BPV (benign positional vertigo) [H81.10]HLD (hyperlipidaemia) [E78.5]Rectal bleeding [K62.5]Exertional dyspnea [R06.09]Emphysema of lung (HCC) [J43.9]Alcohol abuse [F10.10]Status post surgery [Z98.890]SBO (small bowel obstruction) (HCC) [K56.69]Allergies:PenicillinsSu lfa (Sulfonamide Antibiotics)Date Verified: 01/09/17Lab ValuesLab Value Units Date High LowPOTA* 3.8 mmol/L 01/09/2017 5.0 3.5HEMA* 37.2 % 01/09/2017 46.0 36.0Progress Notes ( PK3B):Melissa Pond, RN, RN 01/08/2017 11:01 PM Signed Nursing Progress NotePatient Name: Sofie AdrianMRN: [id number] Location: [place] [id number] Trans chano Note:Patient [facility] in stablecondition. Actions taken: No futher actions taken at this time. Will continueto monitor and check with patient. Call placed to engineering vice president for orders.This note was completed by: Bryan Poon MD, 01/09/2017 12:05 AM AddendumHISTORY AND PHYSICAL EXAMINATIONSERVICE DATE: 01/08/2017SERVICE TIME:PRIMARY CARE PHYSICIAN: COLTON Mercer COMPLAINT:HPI: This is a 61 year old female PMH HTN, HLD, PUD, COPD and h/o multiple GIbleeding PSH L TAC with DEONNA 08/2015 who presents with sharp cramping abdominalpain that started at Thursday night associtaed with nausea and vomiting. SheReport frequent BM on Thursday (10 times). She went to ED at 8:30 pm on the sameday and they scanned her then discharged but she returned back next morning forworsenuing pain where she got another CT scan suggestive of SBO. She wasreferred from OSH to for further treatment.FUNCTIONAL STATUS: IndependentPAST MEDICAL HISTORYDiagnosis Date- Acid reflux- Alcohol abuse Bottle of wine daily- Arthritis- Carotid stenosis medical management- COPD (chronic obstructive pulmonary disease) (HCC) mild obstruction on PFT's 09/2013- Former smoker 10 pack years, quit 2003- High cholesterol- History of rheumatic fever- Hypertension- PUD (peptic ulcer disease) 02/2014- Tachycardia- Ulcer (HCC)- VertigoPAST SURGICAL HISTORYProcedure Laterality Date- COLONOSCOPY- MIDLINE INSERTION/CONSULT 08/10/2015- REMOVE TONSILS/ADENOIDS,<12 Y/O as child- SINUS SURGERY HX age 35- TUBAL LIGATION HX age 19FAMILY HISTORYProblem Relation Age of Onset- Heart Mother- Heart Father- Lipids Father- Diabetes Father- Hypertension Mother- Arthritis SisterSocial HistorySubstance Use Topics- Smoking status: Former Smoker Packs/day: 0.50 Years: 20.00 Types: Cigarettes Quit date: 07/27/2003- Smokeless tobacco: Never Used- Alcohol use Yes Comment: drinks a bottle of wine daily; sometimes morePrescriptions Prior to Admission:iv contrast (radiology procedure) CT ABD/PEL -Inject, intravenously, once for 1dose.No IV access, insert saline lock prior to the beginning of sedation,infusion, injection of imaging exam. Discontinue saline lock post exam. If Pt.has a central line or IVAD, may access for administration according to linespecific nursing protocol. Once exam is complete flush line and de-accessaccording to line specific nursing protocol in the CT contrast administrationguidelines link. Disp: 1 Each Rfl: 0enteric contrast (radiology procedure) For CT ABD/PEL W IVCON Routine orderAdminister, As Directed One Time Only, via Oral, Rectal, both Oral and Rectal,Enteric Tube, Stoma or Indwelling Catheter, Enteric Contrast as designated perenteric contrast guidelines Disp: 1 Each Rfl: 0atorvastatin (LIPITOR) 10 mg tablet Take 10 mg by mouth once daily. Disp: Rfl:09/18/2015 at 2100Cetirizine 10 mg cap Take by mouth once daily. Disp: Rfl: 09/18/2015 at 2100Omeprazole (PRILOSEC) 40 mg capsule Take 1 capsule by mouth once daily. (Patienttaking differently: Take 40 mg by mouth twice daily.) Disp: 30 capsule Rfl: at 0700METOPROLOL TARTRATE ORAL Take 25 mg by mouth. Disp: Rfl: 09/19/2015 at 0700FLUoxetine HCl 20 mg tablet Take 40 mg by mouth once daily. Disp: Rfl:09/19/2015 at 0700traMADol 50 mg tablet Take 50 mg by mouth every 6 hours as needed. Disp: Rfl:09/18/2015 at 2100OTC PRODUCT Indications: OSTEO-BIFLEX Takes 2 PO QD Disp: Rfl: 09/12/2015ALLERGIESAllergen Reactions- Penicillins Vomiting- Sulfa (Sulfonamide * RashCOMPLETE REVIEW OF SYSTEMS:GENERAL: No weight loss, malaise or feversHEENT: Negative for frequent or significant headaches, No changes in hearing orvision, no nose bleeds or other nasal problemsRESPIRATORY: Negative for cough, hemoptysis, wheezing, COPD, dyspnea orshortness of breathCARDIOVASCULAR: Negative for chest pain, leg swelling, hypertension, CHF orpalpitationsGU: No history of dysuria, frequency or incontinenceMUSCULOSKELETAL: Negative for joint pain or swelling, back pain or muscle painHEMATOLOGY/LYMPHOLOGY: Negative for prolonged bleeding, bruising easily orswollen nodesENDOCRINE: Negative for cold or heat intolerance, polyuria, polydipsia andgoiterNEURO: No history of headaches, syncope, paralysis, seizures or tremorsOBJECTIVEPHYSICAL EXAM:GENERAL: Alert, no distress, cooperativeHEAD/SINUSES: No significant findingsLUNGS: Lungs clear to auscultation, Good diaphragmatic excursionCARDIAC: Normal S1 and S2; no rubs, murmurs, or gallopsABDOMEN: Abdomen soft, moderately distended, tender LLQ, BS normal, No masses ororganomegalyEXTREMITIES: Extremities normal, no deformities, edema, clubbing or skindiscoloration. Good capillary refill., No ulcersNEURO: DKz6Fskbudb Vitals for the past 24 hrs: BP Temp Temp src Pulse Resp ItI66601/08/17 2301 151/92 36.4 ?C (97.6 ?F) Oral 89 16 92 %There is no height or weight on file to calculate BMI.DATA:Diagnostic tests reviewed for today's visit:Most recent labs and imaging results.ASSESSMENT/PLAN61 years female PMH HTN, HLD, PUD, COPD, PSH L TAC with DEONNA 08/2015 who presentswith cramping abdominal pain associated with nausea and vomiting. Abdomen ismoderately distended with LLQ ttp. S.Lactate 1. Concern for SBO.-Admission to [facility]-NPO, NGT-IVF @ 100 ml/hr-strict I AND O-Pain meds: tylenol and morphine-Zofran available PRN-KUB stat to confirm NGT placement-Lab, type and screen, stat-DVT prophylaxis: SCD and SQHSIGNATURE: Eloise Langley MD PATIENT NAME: Sofie AdrianDATE: January 08, 2017 : 11:15 PM PAGER/CONTACT #: [phone] Anibal Pond, RN, RN 01/09/2017 5:07 AM Addendum Nursing Progress NotePatient Name: Sofie AdrianMRN: [id number] Location: [place] [address]/[id number] 0400 Patient complaining of abdominal pain 10/10 moaning at intervals andholding her stomach. Patient last medicated with Dilaudid 0.5 mg at 0247.Patient states it doesn't last very long. Text message sent to Surgical residentto notify.0415 Patient medicated with oxycodone 5 mg tablet as instructed by surgicalresident. NG clamped when patient took tablet.0515 NG reconnected to low suction. Patient states the Oxycodone not effectivefor pain.This note was completed by: Melissa Pond, RNPrevious Brielle Landeros MD 01/09/2017 12:21 PM AddendumYayalorena [id number] SERVICE: Teresa HollingsworthSUBJECTIVEPatient is in a lot of pain, writhing in her bedNG in place, with moderately thick outputNo flatus no BMOBJECTIVEI/O:Date 01/08/17 0700 - 01/09/17 0659 01/09/17 07 - 01/10/17 0659Shift 9941-7895 2425-0111 7326-4990 24 Hour Total 3547-5237 8607-1350 2300-533262 Hour TotalINTAKE IV 524 524 NS 0.9% 524 524 Shift Total 524 524OUTPUT Urine 300 300 350 350 Void (ml) 300 300 350 350 Tubes 100 100 GI Tube Output (GI Feed/Drain Nasogastric Tube Left Nare 01/08/17 Present onAdmission) 100 100 Shift Total 400 400 350 350Weight (kg) 64.1 64.1 64.1 64.1 64.1 64.124 hr Vitals:Temp Av.4 ?C (97.6 ?F) Min: 36.4 ?C (97.6 ?F) Max: 36.4 ?C (97.6 ?F)Pulse Av Min: 89 Max: 111Cuff BP Min: 122/72 Max: 151/92Resp Av.3 Min: 16 Max: 17SpO2 Av.5 % Min: 92 % Max: 95 %Pain Score: 10/10Physical Exam:VS: BP 140/73 Pulse 96 Temp 36.4 ?C (97.6 ?F) (Oral) Resp 17 Ht 154.9 cm(5' 1 ) Wt 64.1 kg (141 lb 6.4 oz) SpO2 94% BMI 26.72 kg/h8YNUFZEM: Alert, no distress, cooperativeLUNGS: Lungs clear to auscultation, Good diaphragmatic excursionCARDIAC: Normal S1 and S2; no rubs, murmurs, or gallopsABDOMEN: Abdomen soft, moderately distended, diffusely tender with MPT in LLQ,BS increased, No masses or organomegaly, NG tube with bileous outputEXTREMITIES: Extremities normal, no deformities, edema, clubbing or skindiscoloration.NEURO: SXk1Rthx:Current Facility-Administered Medications:piperacillin-tazoba ctam 3.375 g in dextrose (iso-osmotic) 50 mL (ZOSYN) 3.375 gINTRAVENOUS q 6 H Bessie S (Pa) Miglionicomorphine HOME HEALTH AIDE CAREGIVER 1 mg/mL in NaCl 0.9% 100 mL INTRAVENOUS CONTINUOUS Bessie S (Pa)Miglionicomorphine 1 mg/mL HOME HEALTH AIDE CAREGIVER CLINICIAN DOSE 1 mg 1 mg INTRAVENOUS q 6 H PRN Bessie S(Pa) MiglionicoFLUoxetine 40 mg cap(s) (PROzac) 40 mg ORAL DAILY Sahned (Res) MD Korin 40 mgat 01/09/17 0757NaCl 0.9% iv infusion 125 mL/hr INTRAVENOUS CONTINUOUS Bessie S (Pa) MiglionicoLast Rate: 125 mL/hr at 01/09/17 0755 125 mL/hr at 01/09/17 0755ondansetron 4 mg tab(s) (ZOFRAN) 4 mg ORAL q 6 H PRN Sahned (Res) MD KorinOrondansetron (PF) 4 mg injection (ZOFRAN) 4 mg INTRAVENOUS q 6 H PRN Sahned (Res)Sherrill Langleycetaminophen 650 mg tab(s) (TYLENOL) 650 mg ORAL q 6 H PRN Sahned (Res) MD Korinheparin 5,000 Units injection 5,000 Units SUBCUTANEOUS q 12 H Sahned (Res)MD Korin 5,000 Units at 01/09/17 0757metoprolol tartrate (short acting) 12.5 mg tab(s) (LOPRESSOR) 12.5 mg ORAL q 12H Sahned (Res) MD Korin 12.5 mg at 01/09/17 0757Labs:CBC, Coags, BMP, Mg, PhosRecent Labs 345WBC 13.84* 10.34HB 12.3 12.4HCT 37.2 36.7PLT 180 186INR 1.1 1.1APTT 26.8 27.7NA 138 136K 3.8 3.8CHLOR 102 100CO2 18* 20*BUN 12 13CREAT 0.58* 0.54*GLUC 171* 159*CA 8.6 8.8MG 1.7 1.9P 3.0 3.9Liver Function, Amylase, AND LipaseImaging:XR abd1. ?NG tube coiled within the gastric fundus2. ?A few mildly distended gas filled loops of small bowel in the upperabdomen.ASSESSMENT AND PLAN61 years female PMH HTN, HLD, PUD, COPD, PSH L TAC with DEONNA 08/2015 presentingwith signs, symptoms and diagnostic imaging findings commensurate with SBO.- Pre-opped in case surgical intervention is warranted- IVF: 125 cc/hr of NS- Antibiotics: Start Zosyn D1- Diet : NPO- Pain management: Start Morphine HOME HEALTH AIDE CAREGIVER, Tylenol- Nausea management: Zofran- DVT prophylaxis: Heparin- Trujillo status: Please place trujillo for better hemodynamic monitoring- Encourage IS and ambulation- Strict IANDOs- Seen and discussed with senior resident, will discuss with staffAkhil Weathers MD MPHPGY1, Department of General SurgeryPager: Alex [facility]2016 9:12 AMSurgery attendingI have seen and examined the patient with the house staff. Agree with keycomponents of resident's note, care plan and decision making for the daydiscussed. Pt w/ increased pain and persistent SBO this AM. Will proceed w/diag lap/poss laparotomy. Aspects of the procedure explained to pt in detailsincluding all risks, benefits, and alternatives. SHe understands the risks ofbleeding, infection, bowel injury and possibility of conversion to an openprocedure and other complications related to surgery and/or anesthesia.Adis Landeros, Evan Landeros, [facility]2016 12:20 PMPrevious Debby Carey RN, RN 01/09/2017 10:16 AM Addendum Nursing Progress NotePatient Name: Sofie AdrianMRN: [id number] Location: [place] [id number] Daily Note:pt is axox3, on room air, up with assist. Ng tube in place. Plan forsurgery today. No needs voiced at this time. Will continue to monitor thepatient. Updated daughter on patient's status, ok'd by patient.1016 Jake [place] LA [place]. Updated SENIOR TELECOMMUNICATIONS TECHNICIAN medication list and also c/o indigestion.Thanks. KADEN Aranda [id number] note was completed by: Julieth Tompkins MD 01/09/2017 11:54 AM SignedREGIONAL ANESTHESIOLOGY DAY OF SURGERY NOTEPATIENT NAME: Sofie AdrianMRN: [id number]: 1955Procedure(s) (LRB):EXPLORATORY LAPAROTOMY ADULT (N/A)LAPAROSCOPY DIAGNOSTIC (N/A)Surgeon(s):Adis LanderosEstimated body mass index is 26.72 kg/(m2) as calculated from the following: Height as of this encounter: 154.9 cm (5' 1 ). Weight as of this encounter: 64.1 kg (141 lb 6.4 oz).ASA Class: 3EAdequate NPO status: YesAllergies:ALLERGIESAllergen Reactions- Penicillins Vomiting- Sulfa (Sulfonamide * RashAirway Assessment: MP 3; Neck ROM: Limited Extension; Airway Evaluation: SmallMouth OpeningDentition: Teeth intactSymptoms of Sleep Apnea: DeniesMost recent lab results:Hemoglobin 12.3 01/09/2017Hematocrit 37.2 01/09/2017Potassium 3.8 01/09/2017Platelet Count 180 01/09/2017PT Sec 11.6 01/09/2017APTT 28.1 01/09/2017PT INR 1.1 01/09/2017Creatinine 0.58 01/09/2017EKG:sinus tachycardiaVitals: 3 442 0 BP: 122/72 146/78 140/73 119/75Pulse: 108 111 96 88Resp: 16 16 17 18Temp: 36.4 ?C (97.6 ?F) 36.4 ?C (97.6 ?F) 37.2 ?C (99 ?F)TempSrc: Oral OralSpO2: 95% 93% 94% 92%Weight:Height:Previous Anesthesia: No history of adverse event Family history of anestheticproblems: NoneAdditional Physical Exam:Lungs: Lungs clear to auscultation. Good diaphragmatic excursion.Cardiac: Normal S1 and S2; no rubs, no murmurs and no gallopsAdditional pertinent findings: N/AOther Medical Problems/ Important Considerations:Denies change in functional capacity.Chronic Beta Willy medication administered within 24 hours: N/AAnesthetic risks, benefits, alternatives, personnel and consent discussed: YesPatient agrees to proceed: YesBlood Products: Will accept Blood/Blood ProductsAnesthetic Plan: General RSI; Standard ASA Monitors and Large bore IV'Zulema Management Plan: Parenteral or OralEPIC Chart ReviewACTIVE PROBLEM LISTIron Deficiency AnemiaPud (Peptic Ulcer Disease)Carotid StenosisVertigoTachycardiaBpv (Benign Positional Vertigo)Hld (Hyperlipidaemia)Rectal BleedingExertional DyspneaEmphysema of Lung (Hcc)Alcohol AbuseStatus Post SurgerySbo (Small Bowel Obstruction) (Hcc)PAST MEDICAL HISTORYDiagnosis Date- Acid reflux- Alcohol abuse Bottle of wine daily- Arthritis- Carotid stenosis medical management- COPD (chronic obstructive pulmonary disease) ([facility]) mild obstruction on PFT's 09/2013- Former smoker 10 pack years, quit 2003- High cholesterol- History of rheumatic fever- Hypertension- PUD (peptic ulcer disease) 02/2014- Tachycardia- Ulcer ([facility])- VertigoPAST SURGICAL HISTORYProcedure Laterality Date- COLONOSCOPY- LAP TOTAL COLECTOMY W/O PROCT. N/A 09/19/2015 Lap total colectomy with ileorectal anastomosis- MIDLINE INSERTION/CONSULT 08/10/2015- REMOVE TONSILS/ADENOIDS,<12 Y/O as child- SINUS SURGERY HX age 35- TUBAL LIGATION HX age 19FAMILY HISTORYProblem Relation Age of Onset- Heart Mother- Heart Father- Lipids Father- Diabetes Father- Hypertension Mother- Arthritis SisterSocial History:Social HistorySubstance Use Topics- Smoking status: Former Smoker Packs/day: 0.50 Years: 20.00 Types: Cigarettes Quit date: 07/27/2003- Smokeless tobacco: Never Used- Alcohol use Yes Comment: drinks a bottle of wine daily; sometimes Naik current facility-administered medications on file prior to encounter.Current Outpatient Prescriptions on File Prior to Encounter:iv contrast (radiology procedure) CT ABD/PEL -Inject, intravenously, once for 1dose.No IV access, insert saline lock prior to the beginning of sedation,infusion, injection of imaging exam. Discontinue saline lock post exam. If Pt.has a central line or IVAD, may access for administration according to linespecific nursing protocol. Once exam is complete flush line and de-accessaccording to line specific nursing protocol in the CT contrast administrationguidelines link.enteric contrast (radiology procedure) For CT ABD/PEL W IVCON Routine orderAdminister, As Directed One Time Only, via Oral, Rectal, both Oral and Rectal,Enteric Tube, Stoma or Indwelling Catheter, Enteric Contrast as designated perenteric contrast guidelinesatorvastatin (LIPITOR) 10 mg tablet Take 10 mg by mouth once daily.Cetirizine 10 mg cap Take by mouth once daily.Omeprazole (PRILOSEC) 40 mg capsule Take 1 capsule by mouth once daily. (Patienttaking differently: Take 40 mg by mouth twice daily.)METOPROLOL TARTRATE ORAL Take 50 mg by mouth twice daily.FLUoxetine HCl 20 mg tablet Take 40 mg by mouth once daily.traMADol 50 mg tablet Take 50 mg by mouth every 6 hours as needed.OTC PRODUCT Indications: OSTEO-BIFLEX Takes 2 PO QDInpatient medications reviewed in EPIC.I have interviewed and examined the patient. I have reviewed the medical recordand/or the pre-anesthesia evaluation, pertinent labs, and test results.Significant changes in the patient's condition since the History and Physical,not otherwise documented in primary service progress notes: NoThis contains updated information obtained within 48 hours of Surgery/Procedure.SIGNATURE: Joe Aguilar MD PATIENT NAME: Sofie AdrianDATE: January 09, 2017 : 11:50 AM PAGER/CONTACT #: [facility] OT-XR KUB 1 VIEW IMPORTon OT-XR KUB 1 VIEW IMPORT Images were obtained outside of [facility] [id number] [facility] SR-CT ABD/PELVIS W CON IMPOR Ton 01-08-2017 SR-CT ABD/PELVIS W CON IMPORT Images were obtained outside of [facility] [id number] [facility] SR-CT ABD/PELVIS WO CON IMPO RTon 01-07-2017 SR-CT ABD/PELVIS WO CON IMPORT Images were obtained outside of [facility] [id number] [facility] Encounters Encounter Date Encounter Type Care Provider Facility Start: 04-29-2023 End: 04-29-2023 ambulatory ROSARIO AICHHOLRoland Not Available Start: 07-21-2022 End: 07-22-2022 ambulatory MONIQUE MORRISSEYHOLZ Facility:[facility] Start: 02-12-2022 End: 02-12-2022 ambulatory YOUTH MINISTRY DIRECTOR ROSARIO MORRISSEYHOLZ Facility:[facility] Start: 01-09-2022 End: 01-10-2022 ambulatory YOUTH MINISTRY DIRECTOR ROSARIO GHANSHYAMHOLZ Facility:[facility] Start: 01-06-2022 End: 01-07-2022 ambulatory YOUTH MINISTRY DIRECTOR ROSARIO MORRISSEYHOLZ Facility:[facility] Start: 12-03-2021 End: 12-04-2021 ambulatory MONIQUE YOUNGBLOODZ Facility:[facility] Start: 10-18-2021 End: 10-19-[address] JESSICA SAMPSON Facility:[facility] Start: 09-17-2021 End: 09-18-[address] ISAIAH ROJAS Facility:[facility] Start: 08-06-2021 End: 08-07-2021 ambulatory JOCELINE ORTEGA Facility:[facility] Start: 02-04-2017 Ambulatory NATASHA (GUZMAN YUN [facility] Start: 01-09-2017 End: 01-13-2017 Evaluation and management of inpatient [facility] Procedures Date Procedure Procedure Detail Performing Clinician Start: 10-20-2021 Antibody screen Comment on above: Order Comment: Speci men Type: BLOOD SPECIMEN Ordering Facility: [facility] Address: [address] [place] [address] Performed By: #### T SCR #### CC MAIN BLOOD BANK [facility] [id number] [address] [place] [address] [place] Payers Date Payer Category Payer Medicaid [id number] 1959 Medicare [id number] 1959 Private Health Insurance CLI [id number] 1955 Unknown [id number] 2.16.84 [id number] 1955 Unknown [id number] 2.16.84 [id number] 1955 Unknown [id number] 2.16.84 [id number] 1955 Unknown [id number] 2.16.84 [id number] 1955 Unknown [id number] 2.16.84 [id number] 1955 Unknown [id number] 2.16.84 [id number] 1955 Unknown [id number] 2.16.84 [id number] 1955 Unknown [id number] 2.16.84 [id number] 1955 Unknown [id number] 2.16.840 .[id number] Progress note 10-22-2021 Note Date & Type Note Facility 10-22-2021 Note HNO ID: [id number] Author: Koko Burris MD Service: General Surgery Author Type: Resident Type: Progress Notes Filed: 10/22/2021 5:05 PM Note Text: Documentation Query Based on your medical judgment of the clinical indicators outlined below, please clarify the condition: (Please type X next to your response and sign) [facility] Dr. Burris, Clinical Indicators: Lab Results 10/19/21 Potassium 2.7 MAR Treatment: 10/20/21 potassium chloride iv piggyback 20 mEq/100 mL Please clarify the diagnosis associated with the above clinical indicators: x Hypokalemia Clinically unable to determine Other, please specify Present on admission status: Present on Admission x Not Present on Admission Clinically unable to determine Unknown In responding to this request, please exercise your independent professional judgment. Thank you, Annabella [facility] Progress note 10-22-2021 Note Date & Type Note Facility 10-22-2021 Note HNO ID: [id number] Author: Joceline Liang MD Service: General Surgery Author Type: Resident Type: Progress Notes Filed: 10/22/2021 11:11 AM Note Text: GENERAL SURGERY PROGRESS NOTE Service Date: October 22, 2021 Assessment and Plan: Sofie Adrian is a 66yoF w/ PSH of laparoscopic TAC+DEONNA (2015) f/b diagnostic laparoscopy/JOHNY for adhesive SBO (2016) presenting with high grade SBO with transition point in the pelvis that has been managed conservatively at OSH since 10/17 10/20: NGT 500cc, K 2.7, WBC 2.96, H/H: 10.4/33.4 10/21: NGT: 100cc, (-)N/gas, SBFT not done yesterday 10/22: Tolerating PO, +ROBF - GIS - DC today if tolerating diet Joceline Liang MD General Surgery PGY-1 Acute Care Surgery (ACS) Day Floor Pager: [phone] Acute Care Surgery (ACS) Day Consults Pager: [phone] On nights (6 pm to 6 am) and on Weekends/Holidays, please page the on-call pager: [phone] ___ Subjective: See above Physical Exam: BP 109/62 Pulse 67 Temp (Src) 97.9 (Oral) Resp 16 Wt 124 lb 8 oz (56.5kg) SpO2 97% O2 Therapy: Room Air GENERAL: awake; alert and oriented; no acute distress LUNGS: non-labored breathing, no shortness of breath CARDIAC: RRR, warm and well perfused throughout ABDOMEN: soft, non tender, non distended Labs: CBC, BMP, MG, PHOS Recent Labs 10/22/21 0714 10/19/21 2203 10/19/21220101/12/17 0458 01/11/17 0515 01/10/17 0453 01/09/17 0623 01/08/17 2345 WBC 2.98* 2.96* -- 3.27* 2.75* < > 13.84* 10.34 HB 12.9 10.4* -- 8.8* 8.2* < > 12.3 12.4 HCT 40.4 33.4* -- 27.9* 25.8* < > 37.2 36.7 PLT 155 128* -- 135* 112* < > 180 186 NA 145* -- 142 138 136 < > 138 136 K 3.2* -- 2.7* 4.1 3.4* < > 3.8 3.8 CHLOR 100 -- 104 105 104 < > 102 100 CO2 29 -- 24 23 23 < > 18* 20* BUN 6* -- 12 4* 10 < > 12 13 CREAT 0.58 -- 0.56* 0.54* 0.64* < > 0.58* 0.54* GLUC 90 -- 100* 111* 188* < > 171* 159* CA 9.5 -- 8.8 8.3* 7.4* < > 8.6 8.8 MG 1.6* -- 2.0 1.8 1.7 < > 1.7 1.9 P 3.0 -- 2.0* -- -- -- 3.0 3.9 < > = values in this interval not displayed. Liver Function, Amylase, AND Lipase Recent Labs 10/19/21220210/19/21220110/19/15 1535 08/12/15 0144 08/11/15 0403 08/10/15 0907 08/08/15 0328 TPROT -- 6.0* 8.1 6.9 6.1 < > -- ALB -- 3.7* 4.1 4.0 3.5 < > -- ALT -- 11 12 51* 46* < > -- AST -- 16 37 91* 81* < > -- ALKPHOS -- 48 207* 185* 130 < > -- TBILI -- 0.6 0.4 0.4 0.4 < > -- LACT 0.5 -- -- -- -- -- 1.0 < > = values in this interval not displayed. Coags Recent Labs 10/19/21 2202 01/09/17 0950 01/09/17 0623 01/08/17 2345 APTT 26.6 28.1 26.8 27.7 INR 1.1 1.1 1.1 1.1 Intake and Output: Date 10/21/21 07 - 10/22/21 0659 10/22/21 07 - 10/23/21 0659 Shift 9170-6463 0110-8012 9138-6897 24 Hour Total 2956-3866 4883-9496 8791-8365 24 Hour Total INTAKE PO 120 240 360 100 100 PO 120 240 360 100 100 IV 600 600 Volume (mL) (dextrose 5% in NaCl 0.45% iv infusion) 600 600 Shift Total 600 120 240 960 100 100 OUTPUT Urine 400 100 500 Void (ml) 400 100 500 Urine Not Saved. 1 x 1 x 2 x # of BMs Number of BMs 1 x 1 x Shift Total 400 100 500 Weight (kg) 56.5 56.5 56.5 56.5 56.5 56.5 56.5 56.5 Current Medications: Current Facility-Administered Medications Medication Dose Route Frequency - FLUoxetine 40 mg cap(s) (PROzac) 40 mg ORAL DAILY - hydroCHLOROthiazide 25 mg tab(s) (HYDRODIURIL, ESIDRIX) 25 mg ORAL DAILY - meloxicam 15 mg tab(s) (MOBIC) 15 mg ORAL DAILY - traMADol 50 mg tab(s) (ULTRAM) 50 mg ORAL q 6 H PRN - acetaminophen 650 mg tab(s) (TYLENOL) 650 mg ORAL q 6 H - atorvastatin 10 mg tab(s) (LIPITOR) 10 mg ORAL DAILY - albuterol HFA 90 mcg/actuation 2 Puff (PROVENTIL HFA, VENTOLIN HFA) 2 Puff INHALATION q 6 H PRN - pantoprazole DR 40 mg tab(s) (PROTONIX) 40 mg ORAL BID AC (0600/1600) - ondansetron (PF) 4 mg injection (ZOFRAN) 4 mg INTRAVENOUS q 6 H PRN - NaCl 0.9% iv flush bag 20 mL INTRAVENOUS PRN - NaCl 0.9% iv flush bag 20 mL INTRAVENOUS PRN - heparin 5,000 Units injection 5,000 Units SUBCUTANEOUS q 12 H - buprenorphine 8 mg - naloxone 2 mg sublingual film (SUBOXONE) 2 Film SUBLINGUAL DAILY [facility] Clinical Note 10-21-2021 Note Date & Type Note Facility 10-21-2021 Note HNO ID: [id number] Author: Merline Sanchez RN Service: Care Management Author Type: Registered Nurse Type: Care Mgt Initial Assessment Filed: 10/21/2021 11:35 AM Note Text: CARE MANAGEMENT: ASSESSMENT AND DISCHARGE PLAN SERVICE DATE: October 21, 2021 SERVICE TIME: 11:29 AM PRIMARY CARE PHYSICIAN: Rosario Amezquita CNP, MONIQUE Primary Contact: Extended Emergency Contact Information Primary Emergency Contact: Maude Adrian Relation: Daughter Secondary Emergency Contact: elaynechris salomonn [employer] Relation: Spouse ADMISSION STATUS: Inpatient Insurance Provider: N/A NEEDS PRIOR TO DISCHARGE Needs Prior to Discharge: To Be Determined;Procedure Procedure Needed: SBFT today POTENTIAL TRANSITION PLANS To Be Determined Patient's perception of need for this admission: SBO ADVANCE DIRECTIVES Current Advance Directive: None Furnace Combination Analyst Attempted to Assist with AD Completion: Yes Action: Education Provided MS/BEHAVIOR Baseline Mental Status Prior to this Illness what was the patient's Baseline Mental Status?: Alert AND Oriented Prior to this illness, has anyone described the patient having any of the following behaviors?: Not Applicable Relationship of the informant to the patient:: Self READMISSION Last Discharge Date: 01/13/17 Is this Within the Past 30 days? From what level of care did patient present?: Home Last discharge within 30 days: No PATIENT SCREEN Under the care of a PCP?: Yes, External Provider Provider Name: Rosario Amezquita CNP [phone] Does the patient have transportation upon discharge?: Yes Situation: Spouse to transport Use of any community resources?: No Does the patient have a stable and supportive living arrangement and home setting?: Yes Are there any potential risks or gaps identified by risk/functional/fall,etc. scores in the EMR?: No Any potential risks related to substance abuse and/or behavioral health?: No CAREGIVER ASSESSMENT Caregiver is ready, willing and able to meet the patient's needs as recommended by the inter-professional team:: Yes Patient's transition needs and plan for meeting these needs: TBD MEDICAL Medical Needs: Two or more chronic diseases Health Issues Impacting Discharge Plan: Chronic Chronic: HLD, PUD Medication Adherance I am convinced of the importance of my prescription medication: 0 - Agree Completely I worry that my prescription medication will do more harm than good to me : 0 - Disagree Completely I feel financially burdened by my [id number] expenses for my prescription medication:: 0 - Disagree Completely Risk Score: 0 Patient is categorized as: Low risk < 2 FUNCTIONAL How do you manage to accomplish the following: Independent: Ambulation;Bathe/Shower;Dress;Meals/Meal Prep;Going to the bathroom;Medication Management;Transportation to appointments/community Services/Needs//Equipment Does Patient Currently Receive Any Community Services or Home Care?: None Equipment Prior to Admission: None Has the Patient Been in a Alf Facility in the Past 30 days?: No No medical discharge barriers identified at this time. No social discharge barriers identified at this time. No behavioral/cognitive discharge barriers identified at this time. No functional discharge barriers identified at this time. FREEDOM OF CHOICE EXPLAINED: [place] of Choice Given: No Reason Not Given: Unable to complete with this assessment - revisit Are you interested in bedside delivery of your medications? Yes ASSESSMENT AND PLAN: D/C TBD. Per HANDP, patient presented for concern for SBO. POC: SBFT today. Per medical team, if doesn't open up, may need surgery. Per HANDP, patient is on suboxone for arthritis pain. Patient sees Dr. Masha Mayer for suboxone. Spouse to transport home. Will follow for d/c planning needs. SIGNATURE: Merline Sanchez RN PATIENT NAME: Sofie Adrian DATE: October 21, 2021 TIME: 11:29 AM CONTACT #: [phone] [facility] Progress note 10-21-2021 Note Date & Type Note Facility 10-21-2021 Note HNO ID: [id number] Author: Koko Burris MD Service: General Surgery Author Type: Resident Type: Progress Notes Filed: 10/21/2021 7:42 AM Note Text: GENERAL SURGERY PROGRESS NOTE Service Date: October 21, 2021 Assessment and Plan: Sofie Adrian is a 66yoF w/ PSH of laparoscopic TAC+DEONNA (2016) f/b diagnostic laparoscopy/JOHNY for adhesive SBO (2017) presenting with high grade SBO with transition point in the pelvis that has been managed conservatively at OSH since 10/17 10/20: NGT 500cc, K 2.7, WBC 2.96, H/H: 10.4/33.4 10/21: NGT: 100cc, (-)N/gas, SBFT not done yesterday - SBFT today - If doesn't open up, may need to consider surgery Koko Burris MD General Surgery PGY-1 Acute Care Surgery (ACS) Day Floor Pager: [phone] Acute Care Surgery (ACS) Day Consults Pager: [phone] On nights (6 pm to 6 am) and on Weekends/Holidays, please page the on-call pager: [phone] ___ Subjective: See above Physical Exam: BP 154/74 Pulse 58 Temp (Src) 97.3 (Oral) Resp 16 Wt 124 lb 8 oz (56.5kg) SpO2 97% O2 Therapy: Room Air GENERAL: awake; alert and oriented; no acute distress LUNGS: non-labored breathing, no shortness of breath CARDIAC: RRR, warm and well perfused throughout ABDOMEN: soft, minimally tender, moderately distended, NGT in place Labs: CBC, BMP, MG, PHOS Recent Labs 10/19/21 2203 10/19/21 2202 01/12/17 0458 01/11/17 0515 01/10/17 0453 01/09/17 0623 01/08/17 2345 10/19/15 1535 09/22/15 1143 WBC 2.96* -- 3.27* 2.75* 5.33 13.84* 10.34 < > 7.41 HB 10.4* -- 8.8* 8.2* 10.3* 12.3 12.4 < > 8.3* HCT 33.4* -- 27.9* 25.8* 32.3* 37.2 36.7 < > 28.4* PLT 128* -- 135* 112* 113* 180 186 < > 139* NA -- 142 138 136 139 138 136 < > 137 K -- 2.7* 4.1 3.4* 3.6 3.8 3.8 < > 4.3 CHLOR -- 104 105 104 104 102 100 < > 101 CO2 -- 24 23 23 23 18* 20* < > 25 BUN -- 12 4* 10 12 12 13 < > 2* CREAT -- 0.56* 0.54* 0.64* 0.66* 0.58* 0.54* < > 0.47* GLUC -- 100* 111* 188* 100 171* 159* < > 125* CA -- 8.8 8.3* 7.4* 7.8* 8.6 8.8 < > 8.5 MG -- 2.0 1.8 1.7 1.9 1.7 1.9 -- 1.6* P -- 2.0* -- -- -- 3.0 3.9 -- 2.1* < > = values in this interval not displayed. Liver Function, Amylase, AND Lipase Recent Labs 10/19/21220210/19/21220110/19/15 1535 08/12/15 0144 08/11/15 0403 08/10/15 0907 08/08/15 0328 TPROT -- 6.0* 8.1 6.9 6.1 < > -- ALB -- 3.7* 4.1 4.0 3.5 < > -- ALT -- 11 12 51* 46* < > -- AST -- 16 37 91* 81* < > -- ALKPHOS -- 48 207* 185* 130 < > -- TBILI -- 0.6 0.4 0.4 0.4 < > -- LACT 0.5 -- -- -- -- -- 1.0 < > = values in this interval not displayed. Coags Recent Labs 10/19/21 2202 01/09/17 0950 01/09/17 0623 01/08/17 2345 APTT 26.6 28.1 26.8 27.7 INR 1.1 1.1 1.1 1.1 Intake and Output: Date 10/20/21 07 - 10/21/21 0659 10/21/21 07 - 10/22/21 0659 Shift 8663-3828 0996-9000 6436-3841 24 Hour Total 4315-6358 5682-6764 0653-9193 24 Hour Total INTAKE IV 850 529 224 3294 Volume (mL) (NaCl 0.9% iv flush bag) 600 600 Volume (mL) (potassium chloride iv piggyback 20 mEq/100 mL) 200 100 300 Volume (mL) (magnesium sulfate 2 g in sterile water 50 ml) 50 50 Volume (mL) (dextrose 5% in NaCl 0.45% iv infusion) 206 587 5694 Shift Total 850 606 984 7405 OUTPUT Urine 400 519 812 8295 Void (ml) 400 021 895 4241 Tubes 75 25 100 Output (GI Feed 10/19/21 1700 Admission to Hospital Gastric Right Naris) 75 25 100 Shift Total 475 454 710 8887 Weight (kg) 56.5 56.5 56.5 56.5 56.5 56.5 56.5 56.5 Current Medications: Current Facility-Administered Medications Medication Dose Route Frequency - FLUoxetine 40 mg cap(s) (PROzac) 40 mg ORAL DAILY - hydroCHLOROthiazide 25 mg tab(s) (HYDRODIURIL, ESIDRIX) 25 mg ORAL DAILY - meloxicam 15 mg tab(s) (MOBIC) 15 mg ORAL DAILY - traMADol 50 mg tab(s) (ULTRAM) 50 mg ORAL q 6 H PRN - acetaminophen 650 mg tab(s) (TYLENOL) 650 mg ORAL q 6 H - atorvastatin 10 mg tab(s) (LIPITOR) 10 mg ORAL DAILY - albuterol HFA 90 mcg/actuation 2 Puff (PROVENTIL HFA, VENTOLIN HFA) 2 Puff INHALATION q 6 H PRN - pantoprazole DR 40 mg tab(s) (PROTONIX) 40 mg ORAL BID AC () - ondansetron (PF) 4 mg injection (ZOFRAN) 4 mg INTRAVENOUS q 6 H PRN - dextrose 5% in NaCl 0.45% iv infusion 75 mL/hr INTRAVENOUS CONTINUOUS - NaCl 0.9% iv flush bag 20 mL INTRAVENOUS PRN - NaCl 0.9% iv flush bag 20 mL INTRAVENOUS PRN - heparin 5,000 Units injection 5,000 Units SUBCUTANEOUS q 12 H - buprenorphine 8 mg - naloxone 2 mg sublingual film (SUBOXONE) 2 Film SUBLINGUAL DAILY [facility] Plan of care note 10-20-2021 Note Date & Type Note Facility 10-20-2021 Note HNO ID: [id number] Author: Leighann Rodriguez RN Service: Nursing Author Type: Registered Nurse Type: Plan of Care Filed: 10/20/2021 12:45 PM Note Text: PATIENT NAME: Sofie Adrian Patient reports taking Suboxone at home for the last year. Last dosage was taken Th10/17/21 before ED admission (8-2MG sublingual films). Opioids had been given at outside hospital. Patient currently has no complaints of withdrawal symptoms. Primary team has been contacted regarding suboxone orders. No further intervention at this time, will continue to observe and check with patient. This note was completed by: Leighann Rodriguez [facility] Progress note 10-20-2021 Note Date & Type Note Facility 10-20-2021 Note HNO ID: [id number] Author: Koko Burris MD Service: General Surgery Author Type: Resident Type: Progress Notes Filed: 10/20/2021 8:57 AM Note Text: GENERAL SURGERY PROGRESS NOTE Service Date: October 20, 2021 Assessment and Plan: Sofie Adrian is a 66yoF w/ PSH of laparoscopic TAC+DEONNA (2016) f/b diagnostic laparoscopy/JOHNY for adhesive SBO (2017) presenting with high grade SBO with transition point in the pelvis that has been managed conservatively at OSH for a couple of days 10/20: NGT 500cc, K 2.7, WBC 2.96, H/H: 10.4/33.4 - SBFT today - If doesn't open up, may need to consider surgery tomorrow or in coming days - 80 of potassium IV today, Mg 2g IV - b/l DVT US Koko Burris MD General Surgery PGY-1 Acute Care Surgery (ACS) Day Floor Pager: [phone] Acute Care Surgery (ACS) Day Consults Pager: [phone] On nights (6 pm to 6 am) and on Weekends/Holidays, please page the on-call pager: [phone] ___ Subjective: See above Physical Exam: BP 126/63 Pulse 61 Temp (Src) 97.7 (Oral) Resp 16 Wt 124 lb 8 oz (56.5kg) SpO2 96% O2 Therapy: Room Air GENERAL: awake; alert and oriented; no acute distress LUNGS: non-labored breathing, no shortness of breath CARDIAC: RRR, warm and well perfused throughout ABDOMEN: soft, minimally tender, moderately distended, NGT in place Labs: CBC, BMP, MG, PHOS Recent Labs 10/19/21 2203 10/19/21 2202 01/12/17 0458 01/11/17 0515 01/10/17 0453 01/09/17 0623 01/08/17 2345 10/19/15 1535 09/22/15 1143 WBC 2.96* -- 3.27* 2.75* 5.33 13.84* 10.34 < > 7.41 HB 10.4* -- 8.8* 8.2* 10.3* 12.3 12.4 < > 8.3* HCT 33.4* -- 27.9* 25.8* 32.3* 37.2 36.7 < > 28.4* PLT 128* -- 135* 112* 113* 180 186 < > 139* NA -- 142 138 136 139 138 136 < > 137 K -- 2.7* 4.1 3.4* 3.6 3.8 3.8 < > 4.3 CHLOR -- 104 105 104 104 102 100 < > 101 CO2 -- 24 23 23 23 18* 20* < > 25 BUN -- 12 4* 10 12 12 13 < > 2* CREAT -- 0.56* 0.54* 0.64* 0.66* 0.58* 0.54* < > 0.47* GLUC -- 100* 111* 188* 100 171* 159* < > 125* CA -- 8.8 8.3* 7.4* 7.8* 8.6 8.8 < > 8.5 MG -- 2.0 1.8 1.7 1.9 1.7 1.9 -- 1.6* P -- 2.0* -- -- -- 3.0 3.9 -- 2.1* < > = values in this interval not displayed. Liver Function, Amylase, AND Lipase Recent Labs 10/19/21220210/19/21220110/19/15 1535 08/12/15 0144 08/11/15 0403 08/10/15 0907 08/08/15 0328 TPROT -- 6.0* 8.1 6.9 6.1 < > -- ALB -- 3.7* 4.1 4.0 3.5 < > -- ALT -- 11 12 51* 46* < > -- AST -- 16 37 91* 81* < > -- ALKPHOS -- 48 207* 185* 130 < > -- TBILI -- 0.6 0.4 0.4 0.4 < > -- LACT 0.5 -- -- -- -- -- 1.0 < > = values in this interval not displayed. Coags Recent Labs 10/19/21220101/09/17 0950 01/09/1762201/08/17 2345 APTT 26.6 28.1 26.8 27.7 INR 1.1 1.1 1.1 1.1 Intake and Output: Date 10/19/21699 - 10/20/2165810/20/21 07 - 10/21/21 0659 Shift 6296-2726 2532-0405 4266-2204 24 Hour Total 2824-6090 8122-4896 1263-3222 24 Hour Total INTAKE IV 300 600 900 Volume (mL) (dextrose 5% in NaCl 0.45% iv infusion) 300 600 900 Shift Total 300 600 900 OUTPUT Urine 250 450 700 Void (ml) 250 450 700 Tubes 350 150 500 Output (GI Feed 10/19/21 1700 Admission to Hospital Gastric Right Naris) 350 150 500 Shift Total 915 271 5462 Weight (kg) 56.5 56.5 56.5 56.5 56.5 56.5 56.5 Current Medications: Current Facility-Administered Medications Medication Dose Route Frequency - FLUoxetine 40 mg cap(s) (PROzac) 40 mg ORAL DAILY - hydroCHLOROthiazide 25 mg tab(s) (HYDRODIURIL, ESIDRIX) 25 mg ORAL DAILY - meloxicam 15 mg tab(s) (MOBIC) 15 mg ORAL DAILY - traMADol 50 mg tab(s) (ULTRAM) 50 mg ORAL q 6 H PRN - acetaminophen 650 mg tab(s) (TYLENOL) 650 mg ORAL q 6 H - atorvastatin 10 mg tab(s) (LIPITOR) 10 mg ORAL DAILY - albuterol HFA 90 mcg/actuation 2 Puff (PROVENTIL HFA, VENTOLIN HFA) 2 Puff INHALATION q 6 H PRN - pantoprazole DR 40 mg tab(s) (PROTONIX) 40 mg ORAL BID AC (0600/1600) - ondansetron (PF) 4 mg injection (ZOFRAN) 4 mg INTRAVENOUS q 6 H PRN - dextrose 5% in NaCl 0.45% iv infusion 75 mL/hr INTRAVENOUS CONTINUOUS - NaCl 0.9% iv flush bag 20 mL INTRAVENOUS PRN - potassium chloride iv piggyback 20 mEq/100 mL 20 mEq INTRAVENOUS q 1 H - magnesium sulfate 2 g in sterile water 50 ml 2 g INTRAVENOUS ONCE - NaCl 0.9% iv flush bag 20 mL INTRAVENOUS PRN - heparin 5,000 Units injection 5,000 Units SUBCUTANEOUS q 12 H [facility] Clinical Note 09-17-2021 Note Date & Type Note Facility 09-17-2021 Note PROCEDURE: XR FOOT L T MIN 3 VIEWS HISTORY: Pain in left foot COMPARISON: XR foot bilateral 08/06/2021 FINDINGS: BONES:Mechanical fusion of the first metatarsophalangeal joint without evidence of hardware fracture or loosening. Prior resection of the heads of the second through fourth, and possibly the fifth, proximal phalanges. Persistent angulation of the distal end of the third proximal phalanx. SOFT TISSUES:No visible soft tissue swelling. EFFUSION:None visible. OTHER: Negative. IMPRESSION: 1. Stable surgical changes without evidence of hardware failure or change in alignment. Electronically authenticated by: ISAIAH ROJAS Date: 2021-09-17 11:44 [facility] Summary Purpose Family History No Family History Records FoundNo Family History Records FoundNo Family History Records FoundNo Family History Records FoundNo Family History Records Found Advance Directives No Advanced Directives Records FoundNo Advanced Directives Records FoundNo Advanced Directives Records FoundNo Advanced Directives Records FoundNo Advanced Directives Records Found Additional Source Comments INFORMATION SOURCE (unrecogn ized section and content) DATE CREATED AUTHOR 10/20/2017 [facility] DATE CREATED AUTHOR AUTHOR'S ORGANIZ ATION 10/21/2017 [facility] DATE CREATED AUTHOR AUTHOR'S ORGANIZ ATION 10/22/2021 [facility] DATE CREATED AUTHOR AUTHOR'S ORGANIZ ATION 07/30/2022 [facility] DATE CREATED AUTHOR AUTHOR'S ORGANIZ ATION 04/30/2023 [facility] FOR RECORDS PERTAINING TO PATIENTS WHO ARE OR HAVE BEEN ENROLLED IN A CHEMICAL DEPENDENCY/SUBSTANCEABUSE PROGRAM, SOME INFORMATION MAY BE OMITTED. This clinical summary was aggregated from multiple sources. Caution should be exercised in using it in the provision of clinical care. This summary normalizes information from multiple sources, and as a consequence, information in this document may materially change the coding, format and clinical context of patient data. In addition, data may be omitted in some cases. CLINICAL DECISIONS SHOULD BE BASED ON THE PRIMARY CLINICAL RECORDS. [employer] provides no warranty or guarantee of the accuracy or completeness of information in this document.
== END 2023-06-03 11:02 | disposition home or self-care (01) ==
LOC: RAD 11:05
PROVIDERS: PCP Nurse Practitioner; Visit Provider Podiatrist Foot & Ankle Surgery
DX: M20.21 Hallux rigidus, right foot (principal); Z98.890 Other specified postprocedural states
CPT/HCPCS: 73630

== ENCOUNTER 2023-08-20 10:27 | Outpatient (OUT) | payer MEDICARE, SELFPAY ==
--- NOTE | 2023-08-20 | MM_ITS ---
Patient Name: SOFIE ADRIAN MR#: [id number] : 1955 Exam Date: 08/20/2023 Ordering Doctor: MONIQUE Amezquita CNP RADIOLOGY REPORT PROCEDURE: MM TOMOSYNTHESIS SCREENING BI COMPARISON: MG MAMM SCREEN 3D KARLOS CAD, 07/16/2021. MG MAMM SCREEN 3D KARLOS CAD, 07/21/2022. INDICATIONS: Karlos Screening Mammogram Calculator Name NCI Breast Cancer Risk Assessment Tool 5 Year Breast Cancer Risk 1.20% Lifetime Breast Cancer Risk 4.00% Personal Breast Cancer No Personal Ovarian Cancer No Treatments None Family Cancers Father with prostate cancer at age 75. LOCATION: [facility] BREAST COMPOSITION: There are scattered areas of fibroglandular density. FINDINGS: DIAGNOSTIC CATEGORY 1--NEGATIVE. NO CHANGE FROM COMPARISON ASSESSMENT. Scattered benign-appearing calcifications are present. Scattered benign-appearing lymph nodes are present. RIGHT BREAST: No significant suspicious finding. LEFT BREAST: No significant suspicious finding. RECOMMENDATIONS: ROUTINE MAMMOGRAM AND CLINICAL EVALUATION IN 12 MONTHS. PLEASE NOTE: A NORMAL MAMMOGRAM DOES NOT EXCLUDE THE POSSIBILITY OF BREAST CANCER. A CLINICALLY SUSPICIOUS PALPABLE LUMP SHOULD BE BIOPSIED. Dictated by: Edi Celis MD on 08/21/2023 at 07:36 Approved by: Edi Celis MD on 08/21/2023 at 07:38
== END 2023-08-20 10:28 | disposition home or self-care (01) ==
LOC: MAMMO 08-21 10:28
PROVIDERS: PCP Nurse Practitioner; Visit Provider Nurse Practitioner
DX: Z12.31 Encounter for screening mammogram for malignant neoplasm of breast (principal); Z80.42 Family history of malignant neoplasm of prostate
CPT/HCPCS: 77063; 77067

== ENCOUNTER 2024-05-26 09:50 | Outpatient (OUT) | payer MEDICARE, SELFPAY ==
--- NOTE | 2024-05-26 09:53 | XR_ITS ---
[address] [address] Patient Name: SOFIE ADRIAN MRN: [id number] date: 1955 Sex: F Assigned Patient Location: [facility] Current Patient Location: [facility] Accession/Order Number: [id number] Exam Date: 05/26/2024 10:00 Report Date: 05/26/2024 12:26 At the request of: ADA WHITE Procedure: XR DEXA axial skeleton EXAMINATION: XR DEXA axial skeleton HISTORY: Osteoporosis COMPARISON: DEXA bone densitometry 01/09/2022 TECHNIQUE: Dual-energy X-ray absorptiometry (DXA) was performed. FINDINGS: FOREARM ANALYSIS: Average bone mineral density is 0.549 g/cm2. T-score (standard deviation relative to young adult mean): -2.3 . -0.2% change since prior study. HIP ANALYSIS: Lowest bone mineral density is within the left femoral neck, 0.743 g/cm2. T-score (standard deviation relative to young adult mean): -2.1 . +1.0% change since prior study. XR/XR DEXA axial skeleton IMPRESSION: World Health Organization Classification: Osteopenia - Moderate Fracture Risk FRAX: Cannot be calculated. Pharmacologic treatment recommendations * No uniform recommendation applies to all patients. Management plans must be individualized. * Consider initiating pharmacologic treatment in postmenopausal women and men >= 50 years of age who have the following: Primary fracture prevention: * T-score <= - 2.5 at the femoral neck, total hip, lumbar spine, 33% radius (some uncertainty with existing data) by DXA. * Low bone mass (osteopenia: T-score between - 1.0 and - 2.5) at the femoral neck or total hip by DXA with a 10-year hip fracture risk >= 3% or a 10-year major osteoporosis-related fracture risk >= 20% (i.e., clinical vertebral, hip, forearm, or proximal humerus) based on the [place]-adapted FRAXregistered model. Secondary fracture prevention: * Fracture of the hip or vertebra regardless of BMD [4, 5]. * Fracture of proximal humerus, pelvis, or distal forearm in persons with low bone mass (osteopenia: T-score between - 1.0 and - 2.5). The decision to treat should be individualized in persons with a fracture of the proximal humerus, pelvis, or distal forearm who do not have osteopenia or low BMD [12, 13]. Kana MS, Luisa SL, Wilmer KL, Amy EM, Gregorio KG, AJ, Mikael ES. The clinician's guide to prevention and treatment of osteoporosis. Osteoporos Int. 2021;33(10):7568-4393. doi: 10.1007/y92937-743-08390-h. Epub 2021Aug 22. Erratum in: Osteoporos Int. 2021Nov 21;: PMID: 88292060; PMCID: [id number]. Electronically authenticated by: ISAIAH ROJAS Date: 05/26/2024 12:26
--- OUTSIDE RECORDS SUMMARY | 2024-05-26 10:01 | XMS_ITS | CCD ---
Author Organization [facility] [employer]iniSyak Care Team Providers Care Security Services Specialist Name Role Phone NATASHA YUN (ORDER ADMINISTRATOR) Unavailable UnavailNATASHA Sherman (ORDER ADMINISTRATOR) Unavailable UnavailTERESA Miranda Unavailable Unavailable ALAEDEEN, ADIS Unavailable Unavailable AICHHOLZ, EXCHANGE UNDERWRITING CONSULTANT ROSARIO Admitting Unavailable AICHHOLZ, EXCHANGE UNDERWRITING CONSULTANT ROSARIO Attending Unavailable AICHHOLZ, EXCHANGE UNDERWRITING CONSULTANT ROSARIO Consulting Unavailable AICHHOLZ, EXCHANGE UNDERWRITING CONSULTANT ROSARIO Primary Care Unavailable DR ISAIAH ROJAS Consulting Unavailable AICHHOLZ, EXCHANGE UNDERWRITING CONSULTANT ROSARIO Admitting Unavailable AICHHOLZ, EXCHANGE UNDERWRITING CONSULTANT ROSARIO Attending Unavailable AICHHOLZ, EXCHANGE UNDERWRITING CONSULTANT ROSARIO Consulting Unavailable AICHHOLZ, EXCHANGE UNDERWRITING CONSULTANT ROSARIO Primary Care Unavailable AICHHOLZ, EXCHANGE UNDERWRITING CONSULTANT ROSARIO Admitting Unavailable AICHHOLZ, EXCHANGE UNDERWRITING CONSULTANT ROSARIO Consulting Unavailable AICHHOLZ, EXCHANGE UNDERWRITING CONSULTANT ROSARIO Attending Unavailable AICHHOLZ, EXCHANGE UNDERWRITING CONSULTANT ROSARIO Primary Care Unavailable DR ISAIAH ROJAS Consulting Unavailable JORDAN, JOCELINE Attending Unavailable DR ISAIAH ROJAS Consulting Unavailable JORDAN, JOCELINE Admitting Unavailable AICHHOLZ, EXCHANGE UNDERWRITING CONSULTANT ROSARIO Primary Care Unavailable JOCELINE ORTEGA Consulting Unavailable DR ISAIAH ROJAS Consulting Unavailable JORDAN, JOCELINE Admitting Unavailable JORDAN, JOCELINE Attending Unavailable AICHHOLZ, EXCHANGE UNDERWRITING CONSULTANT ROSARIO Primary Care Unavailable JORDAN, JOCELINE Consulting Unavailable DR JESSICA SAMPSON Consulting Unavailable GRABIEL, NAYE Admitting Unavailable NAYE SPAIN Attending Unavailable AICHHOLZ, EXCHANGE UNDERWRITING CONSULTANT ROSARIO Primary Care Unavailable DR HOLLIE MATA Consulting Unavailable CHAPIN DEJESUS Consulting Unavailable NAYE SPAIN Consulting Unavailable BRIEN JAIMES Consulting Unavailable AICHHOLZ, EXCHANGE UNDERWRITING CONSULTANT ROSARIO Consulting Unavailable AICHHOLZ, EXCHANGE UNDERWRITING CONSULTANT ROSARIO Admitting Unavailable AICHHOLZ, EXCHANGE UNDERWRITING CONSULTANT ROSARIO Attending Unavailable AICHHOLZ, EXCHANGE UNDERWRITING CONSULTANT ROSARIO Primary Care Unavailable AICHHOLZ, EXCHANGE UNDERWRITING CONSULTANT ROSARIO Admitting Unavailable AICHHOLZ, EXCHANGE UNDERWRITING CONSULTANT ROSARIO Attending Unavailable AICHHOLZ, EXCHANGE UNDERWRITING CONSULTANT ROSARIO Consulting Unavailable AICHHOLZ, EXCHANGE UNDERWRITING CONSULTANT ROSARIO Primary Care Unavailable Aichholz ORDER ADMINISTRATOR, Rosario Unavailable Aichholz ORDER ADMINISTRATOR, Rosario Unavailable Dayton Amaya MD Primary Care Provider Aichholz ORDER ADMINISTRATOR, Rosario Unavailable Aichholz ORDER ADMINISTRATOR, Rosario Unavailable AICHHOLZ, ROSARIO Attending Unavailable AICHHOLZ, ROSARIO Attending Unavailable AICHHOLZ, ROSARIO Attending Unavailable AICHHOLZ, ROSARIO Attending Unavailable AICHHOLZ, ROSARIO Attending Unavailable AICHHOLZ, ROSARIO Attending Unavailable Allergies Allergy Classification Reported Allergen(s) Allergy Type Date of Onset Reaction(s) Facility (19 sources) Penicillins; Translations: [PENICILLINS] Propensity to adverse reactions to drug (disorder) 10-22-19 14 Rash, Unknown, GI intolerance [facility] Repository (2 sources) Sulfonamides (Antibiotic); Translations: [SULFA (SULFONAMIDE ANTIBIOTICS)] Propensity to adverse reactions to drug (disorder) 10-22-19 14 [facility] Repository (1 source) Sulfonamides (Antibiotic) Drug allergy (disorder) 01-26-[address] [facility] Repository (16 sources) Sulfacetamide Drug Allergy 04-29-19 24 GI intolerance [facility] (16 sources) Sulfonamides (Antibiotic) Drug Intolerance 10-22-19 14 Other, Rash, Unknown [facility] Medications Current Medications Medication Drug Class(es) Dates Sig (Normalized) Sig (Original) alendronic acid 70 mg oral tablet (15 sources) Bisphosphonate Start: 09-25-2023 alendronate (Fosamax) 70 MG tablet Indications: Osteoporosis, post-menopausal (CMS/HCC) , Age related osteoporosis, unspecified pathological fracture presence (CMS/HCC) Take 1 tablet (70 mg) by mouth every 7 (seven) days Take with a full glass of water, remain upright for at least 30 mins 12 tablet 1 09/25/2023 Active Start: 04-14-2023 End: 07-09-2023 alendronate (Fosamax) 70 MG tablet Indications: Osteoporosis, post-menopausal (CMS/HCC) , Age related osteoporosis, unspecified pathological fracture presence (CMS/HCC) Take 1 tablet (70 mg) by mouth every 7 (seven) days for 28 days Take with a full glass of water, remain upright for at least 30 mins 4 tablet 5 06/11/2023 07/09/2023 Active atorvastatin 10 mg oral tablet (15 sources) HMG-CoA Reductase Inhibitor Start: 09-25-2023 take 1 tablet by mouth at bedtime atorvastatin (Lipitor) 10 MG tablet Indications: Hyperlipidemia Take 1 tablet (10 mg) by mouth at bedtime 90 tablet 1 09/25/2023 Active Start: 06-11-2023 End: 09-09-2023 take 1 tablet by mouth in the morning atorvastatin (Lipitor) 10 MG tablet Indications: Hyperlipidemia Take 1 tablet (10 mg) by mouth in the morning. Take 10 mg by mouth in the morning.. 90 tablet 1 06/11/2023 09/09/2023 Active buprenorphine 8 mg / naloxone 2 mg sublingual film (16 sources) Partial Opioid Agonist, Opioid Antagonist Buprenorphine HCl-Naloxone HCl (Suboxone) 8-[address] 0.25 Film under the tongue Active calcium carbonate 1250 mg / cholecalciferol 600 unt oral tablet (17 sources) Vitamin D Start: 03-08-20 take 1 tablet by mouth at bedtime Calcium 500 + D3 500-15 MG-MCG tablet TAKE 1 TABLET BY MOUTH IN THE MORNING AND BEFORE BEDTIME 03/08/2024 Active Start: 12-06-2023 End: 03-05-2024 take 1 tablet by mouth in the morning Calcium Carb-Cholecalciferol (Calcium 500 + D3) 500-15 MG-MCG tablet Indications: Age-related osteoporosis without current pathological fracture (CMS/HCC) Take 1 tablet by mouth in the morning and 1 tablet before bedtime. 180 tablet 1 12/06/2023 03/05/2024 Active Start: 06-11-2023 End: 09-09-2023 take 1 tablet by mouth in the morning Calcium Carb-Cholecalciferol (Calcium 500 + D3) 500-15 MG-MCG tablet Indications: Hypocalcemia Take 1 tablet by mouth in the morning and 1 tablet before bedtime. 180 tablet 1 06/11/2023 09/09/2023 Active cyclobenzaprine hydrochloride 10 mg oral tablet (16 sources) Muscle Relaxant Start: 02-14-2024 End: 03-15-2024 take 1 tablet by mouth in the morning as needed for muscle spasms, then take 1 tablet by mouth at bedtime as needed for muscle spasms, then take 0.5 tablet by mouth twice daily as needed for muscle spasms cyclobenzaprine (Flexeril) 10 MG tablet Indications: Chronic bilateral low back pain without sciatica Take 1 tablet (10 mg) by mouth in the morning and 1 tablet (10 mg) before bedtime. May take 1/2 -1 pill twice a day as needed for muscle spasms. 60 tablet 3 02/14/2024 Active Start: 06-11-2023 End: 07-11-2023 take 1 tablet by mouth in the morning as needed for muscle spasms, then take 1 tablet by mouth at bedtime as needed for muscle spasms, then take 0.5 tablet by mouth twice daily as needed for muscle spasms cyclobenzaprine (Flexeril) 10 MG tablet Indications: Chronic bilateral low back pain without sciatica Take 1 tablet (10 mg) by mouth in the morning and 1 tablet (10 mg) before bedtime. May take 1/2 -1 pill twice a day as needed for muscle spasms. 60 tablet 3 06/11/2023 07/11/2023 Active Start: 05-25-2023 End: 06-11-2023 take 1 tablet by mouth three times daily as needed for muscle spasms cyclobenzaprine (Flexeril) 5 MG tablet Indications: Chronic bilateral low back pain without sciatica TAKE 1 TABLET BY MOUTH 3 TIMES A DAY NEEDED FOR MUSCLE SPASMS 90 tablet 1 05/25/2023 06/11/2023 Discontinued (Cost of medication) FLUoxetine 10 mg oral capsule (18 sources) Serotonin Reuptake Inhibitor Start: 01-04-2024 End: 04-03-2024 take 1 capsule by mouth once daily FLUoxetine (PROzac) 10 MG capsule Indications: Anxiety Take 1 capsule (10 mg) by mouth Daily 90 capsule 1 01/04/2024 Active Start: 06-02-2023 End: 09-09-2023 take 1 capsule by mouth in the morning FLUoxetine (PROzac) 20 MG capsule Indications: Anxiety Take 1 capsule (20 mg) by mouth in the morning. 90 capsule 1 06/11/2023 09/09/2023 Active meloxicam 15 mg oral tablet (16 sources) Nonsteroidal Anti-inflammatory Drug Start: 01-18-2024 End: 04-17-2024 take 1 tablet by mouth in the morning meloxicam (Mobic) 15 MG tablet Take 15 mg by mouth in the morning. 04/14/2024 Active Start: 03-30-2023 End: 09-09-2023 take 1 tablet by mouth in the morning Meloxicam 15 MG tablet dispersible Indications: Chronic bilateral low back pain without sciatica Take 15 mg by mouth in the morning. 90 tablet 1 06/11/2023 09/09/2023 Active omeprazole 40 mg delayed release oral capsule (16 sources) Proton Pump Inhibitor Start: 09-25-2023 End: 08-13-2024 take 1 capsule by mouth before mealtime omeprazole (PriLOSEC) [address] capsule Indications: Gastroesophageal reflux disease without esophagitis Take 1 capsule (40 mg) by mouth in the morning. Take before meals. 90 capsule 1 05/15/2024 08/13/2024 Active Start: 05-23-2023 End: 09-09-2023 take 1 capsule by mouth in the morning omeprazole (PriLOSEC) [address] capsule Indications: Gastroesophageal reflux disease without esophagitis Take 1 capsule (40 mg) by mouth in the morning. 90 capsule 1 06/11/2023 09/09/2023 Active Problems Active Problems Problem Classification Problem Date Documented Date Episodic/Chronic Anxiety disorders (20 sources) Anxiety; Translations: [Anxiety disorder, unspecified] Onset: 06-02-2023 06-02-2023 Chronic Deficiency and other anemia (10 sources) Iron deficiency anemia; Translations: [Iron deficiency anemia, unspecified] Onset: 02-29-2024 02-29-2024 Episodic Disorders of lipid metabolism (18 sources) Hyperlipidemia; Translations: [Hyperlipidemia, unspecified] Onset: 06-03-2023 06-03-2023 Chronic Diverticulosis and diverticulitis (16 sources) Diverticulosis of colon without diverticulitis; Translations: [Diverticulosis of large intestine without perforation or abscess without bleeding] Onset: 06-11-2023 06-11-2023 Chronic Esophageal disorders (20 sources) Gastroesophageal reflux disease without esophagitis; Translations: [Gastro-esophageal reflux disease without esophagitis] Onset: 05-23-2023 05-23-2023 Chronic Heart valve disorders (11 sources) Heart murmur; Translations: [Cardiac murmur, unspecified] Onset: 03-02-2024 03-02-2024 Episodic Mood disorders (12 sources) Single episode of major depression in full remission; Translations: [Major depressive disorder, single episode, in full remission] Onset: 02-29-2024 02-29-2024 Chronic Nutritional deficiencies (8 sources) Vitamin deficiency; Translations: [Vitamin deficiency, unspecified] Onset: 04-05-2024 04-05-2024 Episodic Osteoporosis (20 sources) Postmenopausal osteoporosis; Translations: [Age-related osteoporosis without current pathological fracture] Onset: 06-11-2023 06-11-2023 Chronic Other connective tissue disease (8 sources) Pain in bilateral legs; Translations: [Pain in right leg] Onset: 04-05-2024 04-05-2024 Episodic Other connective tissue disease (8 sources) Nocturnal muscle cramp; Translations: [Cramp and spasm] Onset: 04-05-2024 04-05-2024 Episodic Other upper respiratory infections (20 sources) Upper respiratory infection; Translations: [Acute upper respiratory infection, unspecified] Onset: 04-29-2023 Resolved: 09-02-2023 04-29-2023 Episodic Residual codes; unclassified (1 source) Family history of malignant neoplasm of prostate; Translations: [FAMILY HX MALIG NEOPLASM PROSTATE] Onset: 07-25-2022 Episodic Substance-related disorders (13 sources) History of opioid abuse; Translations: [Opioid abuse, in remission] Onset: 10-12-2023 10-12-2023 Chronic Unclassified (4 sources) CONTACT W/AND (SUSP) EXPOS COVID-19; Translations: [CONTACT W/AND (SUSP) EXPOS COVID-19] Onset: 10-23-2021 Past or Other Problems Problem Classification Problem Date Documented Da te Episodic/Chronic Abdominal pain (5 sources) Generalized abdominal pain; Translations: [Epigastric pain] Onset: 02-04-2017 Episodic Deficiency and other anemia (4 sources) Iron deficiency anemia, unspecified; Translations: [IRON DEFICIENCY ANEMIA UNSPECIFIED] Onset: 12-03-2021 Episodic Essential hypertension (20 sources) Essential (primary) hypertension; Translations: [Benign hypertension] Onset: 10-23-2021 Resolved: 03-02-2024 06-03-2023 Chronic Gout and other crystal arthropathies (16 sources) Gout; Translations: [Gout, unspecified] Onset: 06-03-2023 Resolved: 09-02-2023 06-03-2023 Chronic Intestinal obstruction without hernia (2 sources) Other intestinal obstruction; Translations: [Unspecified intestinal obstruction, unspecified as to partial versus complete obstruction] Onset: 01-09-2017 Episodic Mood disorders (15 sources) Mood disorders Onset: 06-11-2023 06-11-2023 Nausea and vomiting (1 source) Nausea with vomiting, unspecified; Translations: [NAUSEA WITH VOMITING UNSPECIFIED] Onset: 10-23-2021 Episodic Other aftercare (1 source) Other fpc (current) drug therapy; Translations: [OTH FCI CURRENT DRUG THERAPY] Onset: 10-23-2021 Episodic Other aftercare (1 source) termite treater helper (current) use of aspirin; Translations: [FCI CURRENT USE OF ASPIRIN] Onset: 10-23-2021 Episodic [...] [PAIN IN RIGHT FOOT] Onset: 08-06-2021 Episodic Other infections; including parasitic (13 sources) Infestation by Sarcoptes scabiei linden hominis; Translations: [Scabies] Onset: 08-19-2023 Resolved: 10-12-2023 10-12-2023 Episodic Other non-traumatic joint disorders (16 sources) Multiple joint pain; Translations: [Pain in unspecified joint] Onset: 06-11-2023 06-11-2023 Episodic Other nutritional; endocrine; and metabolic disorders (15 sources) Body mass index 25-29 - overweight; Translations: [Overweight] Onset: 10-12-2023 10-12-2023 Episodic Other screening for suspected conditions (not mental disorders or infectious disease) (20 sources) Encounter for screening mammogram for malignant neoplasm of breast; Translations: [Encounter for screening for malignant neoplasm of cervix] Onset: 01-06-2022 Episodic Residual codes; unclassified (4 sources) Asymptomatic menopausal state; Translations: [ASYMPTOMATIC MENOPAUSAL STATE] Onset: 01-09-2022 Episodic Screening and history of mental health and substance abuse codes (1 source) Personal history of nicotine dependence; Translations: [PERSONAL HISTORY OF NICOTINE DEPEND] Onset: 10-23-2021 Episodic Spondylosis; intervertebral disc disorders; other back problems (20 sources) Chronic low back pain; Translations: [Chronic bilateral low back pain without sciatica] Onset: 03-30-2023 03-30-2023 Episodic Unclassified (1 source) CONTACT W/AND (SUSP) EXPOS COVID-19; Translations: [CONTACT W/AND (SUSP) EXPOS COVID-19] Onset: 02-12-2022 Viral infection (16 sources) Disease caused by 2019-nCoV; Translations: [COVID-19] Onset: 04-29-2023 Resolved: 09-02-2023 04-29-2023 Episodic Results Test Name Value Interpretation Reference Range Facility No Panel Informationon 05-10 Interpretation and review of laboratory results Normal [facility] Rapid Influenza A Ag Negative Negative, Indeterminate [facility] Rapid Influenza B Ag Negative Negative, Indeterminate [facility] MG MAMM SCREEN 3D KARLOS CADon 07-21-2022 MG MAMM SCREEN 3D KARLOS CAD Patient: SOFIE ADRIAN Exam Date: 07/21/2022 : 1955 Gender:F Ordering : MONIQUE AMEZQUITA [facility] Admission #: [id number] Family : Order #: [id number] CLICK HERE TO VIEW EXAM RADIOLOGY REPORT [...] prostate cancer at age 75. LOCATION: [facility] BREAST COMPOSITION: Scattered areas fibroglandular density. FINDINGS: [...] Rojas M.D. on 07/21/2022 at 12:20 Normal [facility] Covid-19 PCR (CVDTBH)on 01-25 SARS-CoV-2 (COVID-19) RNA BOBO+probe Ql (Unsp spec) Not detected Normal NOT DETECTED [facility] Comment on above: Result Comment: This test is not yet bryson roved or cleared by the [place] FDA. When there are no FDA-approved or cleared tests available, and other criteria are met, FDA can make tests available under an emergency access mechanism called an Emergency Use Authorization (EUA). The EUA for this test is supported by the [place] of Health and Human Service's (HHS's) declaration [...] consistent with SARS-CoV-2. Performed By: #### C VDTBH ####[facility] [address] [place], [place] [address]TbDallas Carcamo PAP ACOG PANEL 2: 30 to 65on 01-14-2022 . . Normal [facility] Comment on above: Performed By: #### [id number] ####[facility] [address] [place], [place] [address]LzDallas Carcamo Age Gdln ACOG Testing Comment Normal [facility] Comment on above: Result Comment: <21 or >65 or no age pro vided Performed By: #### [id number] ####[facility] [address] [place], [place] [address]DrDallas Carcamo DIAGNOSIS: Comment Normal [facility] Comment on above: Result Comment: NEGATIVE FOR INTRAEPITHE LIAL LESION OR MALIGNANCY. CELLULAR CHANGES ASSOCIATED WITH ATROPHY ARE PRESENT. THIS SPECIMEN WAS RESCREENED PART OF OUR LINUX SUPPORT ENGINEER PROGRAM. Performed By: #### [id number] ####[facility] [address] [place], [place] [address]DrDallas Carcamo Methodology: Comment Normal [facility] Comment on above: Result Comment: This liquid based ThinPr ep(R) pap test was screened with the use of an image guided system. Performed By: #### [id number] ####[place] [address]DrDallas Carcamo Note: Comment Normal [facility] Comment on above: Result Comment: The Pap smear is a scree sena test designed to aid in the detection of premalignant and malignant conditions of the uterine cervix. It is not a diagnostic procedure and should not be used as the sole means of detecting cervical cancer. Both false-positive and false-negative reports do occur. . Performed By: #### [id number] ####[facility] [address] [place], [place] [address]DrDallas Carcamo Performed by: Comment Normal [facility] Comment on above: Result Comment: Sukumar Per[employer] nologist (ASCP) Performed By: #### [id number] ####[facility] [address] [place], [place] [address]DrDallas Carcamo QC reviewed by: Comment Normal [facility] Comment on above: Result Comment: Neymar Urbano Business Office Associate (ASCP) Performed By: #### [id number] ####[facility] [address] [place], [place] [address]DrDallas Carcamo Specimen adequacy: Comment Normal [facility] Comment on above: Result Comment: Satisfactory for evaluat ion. Endocervical component may not be distinguished in cases of atrophy. Performed By: #### [id number] ####[facility] [address] [place] [address]Dr. Rashida Carcamo XR DEXA BONE DENSITYon 01-09 [...] ISAIAH ROJAS Date: 2022-01-09 10:53 Normal [facility] CBC W MANUAL DIFFon 01-07-20 22 ATYPICAL LYMPH # Normal [facility] Comment on above: Performed By: #### CBCBONY ####[facility] ospital [address] [place] [address]Dr. Rashida Carcamo ATYPICAL LYMPH % Normal [facility] Comment on above: Performed By: #### CBCMAN ####[facility] ospital [address] [place] [address]Dr. Rashida Carcamo BAND # Normal 0.0-0.[address] [facility] Comment on above: Performed By: #### CBCBONY ####[facility] ospital [address] [place] [address]Dr. Kenialan Carcamo BAND % Normal 0-[address] [facility] Comment on above: Performed By: #### CBCMAN ####[facility] ospital [address] [place] [address]Dr. Rashida Carcamo BASOM # 0.00 103/ul Normal 0.00-0.10 [facility] Comment on above: Performed By: #### CBCBONY ####[facility] ospital [address] [place] [address]Dr. Rashida Carcamo BASOM % 0.0 % Critically low 0.2-2.[address] [facility] Comment on above: Performed By: #### CBCMAN ####[facility] o[facility]ital [address] [place] [address]Dr. Rashida Carcamo BLAST # Normal [facility] Comment on above: Performed By: #### CBCMAN ####[facility] o[facility]ital [address] [place] [address]Dr. Rashida Carcamo BLAST % Normal [facility] Comment on above: Performed By: #### CBCMAN ####[facility] o[facility]ital [address] [place] [address]Dr. Rashida Carcamo CORRECTED WBC Normal 4.0-11.[address] [facility] Comment on above: Performed By: #### CBCMAN ####[facility] ospital [address] [place] [address]Dr. Rashida Carcamo EOS # 0.00 103/ul Normal 0.00-0.[address] [facility] Comment on above: Performed By: #### CBCMAN ####[facility] o[facility]ital [address] [place] [address]Dr. Rashida Carcamo EOS% 0.0 % Critically low 0.9-7.[address] [facility] Comment on above: Performed By: #### CBCMAN ####[facility] ospital [address] [place] [address]Dr. Rashida Carcamo HCT 37.0 % Normal 36.0-48.[address] [facility] Comment on above: Performed By: #### CBCMAN ####[facility] o[facility]ital [address] [place] [address]Dr. Rashida Carcamo HGB 12.0 g/dl Normal 12.0-16.[address] [facility] Comment on above: Performed By: #### CBCMAN ####[facility] ospital [address] [place] [address]Dr. Rashida Carcamo LYMPHM # 0.70 103/ul Critically low 1.20-3.80 [facility] Comment on above: Performed By: #### CBCMAN ####[facility] ospital [address] [place] [address]Dr. Rashida Carcamo LYMPHM% 25.0 % Normal 20.5-60.0 [facility] Comment on above: Performed By: #### CBCMAN ####[facility] ospital [address] [place] [address]Dr. Rashida Carcamo MCH 30.4 pg Normal 26.7-34.0 [facility] Comment on above: Performed By: #### CBCMAN ####[facility] o[facility]ital [address] [place] [address]Dr. Rashida Carcamo MCHC 32.4 g/dl Normal 29.9-35.2 [facility] Comment on above: Performed By: #### CBCMAN ####[facility] ospital [address] [place] [address]Dr. Rashida Carcamo MCV 93.7 fL Normal 81.0-99.0 [facility] Comment on above: Performed By: #### CBCMAN ####[facility] ospital [address] [place] [address]Dr. Rashida Carcamo METAMYELOCYTE # Normal [facility] Comment on above: Performed By: #### CBCBONY ####[facility]ital [address] [place] [address]Dr. Rashida Carcamo METAMYELOCYTE % Normal [facility] Comment on above: Performed By: #### CBCMAN ####[facility] ospital [address] [place] [id number]. Rashida Carcamo MONOM# 0.22 103/ul Critically low 0.30-0.80 [facility] Comment on above: Performed By: #### CBCMAN ####[facility] ospital [address] [place] [address]Dr. Rashida Carcamo MONOM% 8.0 % Normal 1.7-12.0 [facility] Comment on above: Performed By: #### CBCMAN ####[facility] Cgsyoajnaa0868 [place], [place] [address]Ed. Rashida Carcamo MPV 10.8 fL Normal 9.5-13.[address] [facility] Comment on above: Performed By: #### CBCMAN ####[facility] Oqehdlgdnx4496 [place] [id number]. Rashida Carcamo MYELOCYTE # Normal [facility] Comment on above: Performed By: #### CBCBONY ####[facility]ital Zrgpycrtlx9357 [place] [address]Dr. Rashida Carcamo MYELOCYTE % Normal [facility] Comment on above: Performed By: #### CBCBONY ####[facility] ospital Sluvghasvl5859 [place] [address]Dr. Rashida Carcamo NRBC Normal [facility] Comment on above: Performed By: #### CBCBONY ####[facility] ospital Mpzmcfgldq3753 [place] [address]Dr. Rashida Carcamo PLT 154 103/ul Normal 150-[address] [facility] Comment on above: Performed By: #### CBCBONY ####[facility] ospital Xjmcakcrcp5534 [place] [address]Dr. Rashida Carcamo RBC 3.95 106/ul Critically low 4.20-5.40 [facility] Comment on above: Performed By: #### CBCBONY ####[facility]ital Qddolzeqtw3685 [place] [address]Dr. Rashida Carcamo RDW 13.2 % Normal 11.0-15.[address] [facility] Comment on above: Performed By: #### CBCMAN ####[facility]ital Wqwggujorp2861 [place] [address]Dr. Rashida Carcamo SEG # 1.88 103/ul Normal 1.40-6.[address] [facility] Comment on above: Performed By: #### CBCMAN ####[facility]ital Zzuvwudqza4767 [place] [address]Dr. Rasihda Carcamo SEG % 67.0 % Normal 43.0-75.[address] [facility] Comment on above: Performed By: #### CBCMAN ####[facility]ital Rhbqylngmx5487 [place] [address]Dr. Rashida Carcamo WBC 2.8 103/ul Critically low 4.0-11.[address] [facility] Comment on above: Performed By: #### CBCMAN ####[facility]spital [address] [place], [place] [address]Dr. Rashida Carcamo CBC AUTO DIFFon 12-03-2021 BASO # 0.1 103/ul Normal 0.0-0.[address] [facility] Comment on above: Performed By: #### CBC ####[facility] Flwacebpfm[address] [place], [place] [address]Dr. Rashida Carcamo Basophils/100 WBC (Bld) 1.9 % Normal 0.2-2.0 [facility] Comment on above: Performed By: #### CBC ####[facility] Ptjhaayheh[address] [place], [place] [address]Dr. Rashida Carcamo EO # 0.2 103/ul Normal 0.0-0.[address] [facility] Comment on above: Performed By: #### CBC ####[facility] Mpdblacfke[address] [place], [place] [address]Dr. Rashida Carcamo Eosinophils/100 WBC (Bld) 5.6 % Normal 0.9-7.[address] [facility] Comment on above: Performed By: #### CBC ####[facility] Asuvpwhjye2[address] [place], [place] [address]Dr. Rashida Carcamo Erythrocyte distribution width (RBC) [Ratio] 13.6 % Normal 11.0-15.[address] [facility] Comment on above: Performed By: #### CBC ####[facility] Pweiglryjg4[address] [place], [place] [address]DrDallas Carcamo Hematocrit (Bld) [Volume fraction] 38.0 % Normal 36.0-48.[address] [facility] Comment on above: Performed By: #### CBC ####[facility] Rleeqqzbnq[address] [place], [place] [address]DrDallas Carcamo Hemoglobin (Bld) [Mass/Vol] 11.7 g/dL Critically low 12.0-16.0 [facility] Comment on above: Performed By: #### CBC ####[facility] Wefisslgwq5953 [address] Rashida Carcamo IG # 0.00 10e3/ul Normal 0.00-0.03 [facility] Comment on above: Performed By: #### CBC ####[facility] Hqiyszknul6476 [address] Rashida Carcamo IG % 0.0 % Normal 0.0-0.5 [facility] Comment on above: Performed By: #### CBC ####[facility] [address]zmfwpbbib[address] [place], [place] [address] Rashida Carcamo LYMPH # 0.8 103/ul Critically low 1.2-3.8 [facility] Comment on above: Performed By: #### CBC ####[facility] Alllzunsmp[address] [place], [place] [address] Rashida Carcamo Lymphocytes/100 WBC (Bld) 29.3 % Normal 20.5-60.0 [facility] Comment on above: Performed By: #### CBC ####[facility] Qpumondmll5533 [address] Rashida Carcamo MANUAL DIFF REQ NO Normal [facility] Comment on above: Performed By: #### CBC ####[facility] Vlxoetyabs3151 [address] Rashida Carcamo MCH (RBC) [Entitic mass] 29.7 pg Normal 26.7-34.0 [facility] Comment on above: Performed By: #### CBC ####[facility] Waxqmarqpw5693 [address] Rashida Carcamo MCHC (RBC) [Mass/Vol] 30.8 g/dL Normal 29.9-35.[address] [facility] Comment on above: Performed By: #### CBC ####[facility] Dtkbyrckhw8697 [address] Rashida Carcamo MCV (RBC) [Entitic vol] 96.4 fL Normal 81.0-99.[address] [facility] Comment on above: Performed By: #### CBC ####[facility] Jbxvkrqjhq5023 [place] [address]DrDallas Carcamo MONO # 0.2 103/ul Critically low 0.3-0.[address] [facility] Comment on above: Performed By: #### CBC ####[facility] Okmkwftnov3369 [place] [address]DrDallas Carcamo Monocytes/100 WBC (Bld) 7.5 % Normal 1.7-12.[address] [facility] Comment on above: Performed By: #### CBC ####[facility] Hqngbuizwz[address] [place], [place] [address]DrDallas Carcamo NEUT # 1.5 103/ul Normal 1.4-6.[address] [facility] Comment on above: Performed By: #### CBC ####[facility] Urnwrmjppx[address] [place], [place] [address]DrDallas Carcamo Neutrophils/100 WBC (Bld) 55.7 % Normal 43.0-75.[address] [facility] Comment on above: Performed By: #### CBC ####[facility] Asvtqhlrta[address] [place], [place] [address]DrDallas Carcamo Platelet mean volume (Bld) [Entitic vol] 10.6 fL Normal 9.5-13.[address] [facility] Comment on above: Performed By: #### CBC ####[facility] Kpyuvggvzx[address] [place], [place] [address]Dr. Rashida Carcamo PLT 165 103/ul Normal 150-[address] [facility] Comment on above: Performed By: #### CBC ####[facility] Khebkouegh5675 [place] [address]DrDallas Carcamo RBC 3.94 106/ul Critically low 4.20-5.[address] [facility] Comment on above: Performed By: #### CBC ####[facility] Hxuhygulhj9363 [place] [address]DrDallas Carcamo WBC 2.7 103/ul Critically low 4.0-11.0 [facility] Comment on above: Performed By: #### CBC ####[facility] Eopraiskha[address] [place], [place] [address]Wi. Rashida Carcamo IRONon 12-03-2021 Iron [Mass/Vol] 85.0 ug/dL Normal 50.0-170.0 [facility] Comment on above: Performed By: #### IRON ####[facility] Tyblsmifbb8629 [place] [address]Dr. Rashida Carcamo Basic metabolic 2000 panelon 10-22-2021 Anion gap [Moles/Vol] 16 mmol/L Normal 9-18 [facility] Comment on above: Order Comment: Specimen Type: BLOOD SPEC IMEN Ordering Facility: [facility] Address: [address] [place] [address] Performed By: #### 2 777-1, , #### [facility] CLIA [id number] [address] [place] [address] [place] Calcium [Mass/Vol] 9.5 mg/dL Normal 8.5-10.2 [facility] Comment on above: Order Comment: Specimen Type: BLOOD SPEC IMEN Ordering Facility: [facility] Address: [address] [place] [address] Performed By: #### 2 777-1, , 85418-5 #### [facility] CLIA [id number] [address] [place] [address] [place] Chloride [Moles/Vol] 100 mmol/L Normal 97-105 [facility] Comment on above: Order Comment: Specimen Type: BLOOD SPEC IMEN Ordering Facility: [facility] Address: [address] [place] [address] Performed By: #### 2 777-1, , 80539-4 #### [facility] CLIA [id number] [address] [place] [address] [place] CO2 [Moles/Vol] 29 mmol/L Normal 22-30 [facility] Comment on above: Order Comment: Specimen Type: BLOOD SPEC IMEN Ordering Facility: [facility] Address: [address] [place] [address] Performed By: #### 2 777-1, , #### [facility] CLIA [id number] [address] [place] [address] [place] Creatinine [Mass/Vol] 0.58 mg/dL Normal 0.58-0.96 [facility] Comment on above: Order Comment: Specimen Type: BLOOD SPEC IMEN Ordering Facility: [facility] Address: [address] [place] [address] Performed By: #### 2 777-1, , #### [facility] CLIA [id number] [address] [place] [address] [place] ESTIMATED GLOMERULAR FILTRATION RATE 100 mL/min/1.73m??? Normal >=60 [facility] Comment on above: Order Comment: Specimen Type: BLOOD SPEC IMEN Ordering Facility: [facility] Address: [address] [place] [address] Result Comment: Humaira mated Glomerular Filtration Rate [...] Performed By: #### 2 777-1, , #### [facility] CLIA [id number] [address] [place] [address] [place] Glucose [Mass/Vol] 90 mg/dL Normal 74-99 [facility] Comment on above: Order Comment: Specimen Type: BLOOD SPEC IMEN Ordering Facility: [facility] Address: [address] [place], [place] [phone] Result Comment: The [place] [employer] (ADA) provides guidance for cutoff [...] Standards of Medical Care in Diabetes 2016, [place] [employer]. Diabetes Care. 2016.39(Suppl 1). Performed By: #### 2 777-1, , #### [facility] CLIA [id number] [address] [place] [address] [place] Potassium [Moles/Vol] 3.2 mmol/L Low 3.7-5.1 [facility] Comment on above: Order Comment: Specimen Type: BLOOD SPEC IMEN Ordering Facility: [facility] Address: [address] [place], [place] [address] Performed By: #### 2 777-1, , #### [facility] CLIA [id number] [address] [place] [address] [place] Sodium [Moles/Vol] 145 mmol/L High 136-144 [facility] Comment on above: Order Comment: Specimen Type: BLOOD SPEC IMEN Ordering Facility: [facility] Address: [address] [place] [address] Performed By: #### 2 777-1, , 01635-1 #### [facility] CLIA [id number] [address] [place] [address] [place] Urea nitrogen [Mass/Vol] 6 mg/dL Low 7-21 [facility] Comment on above: Order Comment: Specimen Type: BLOOD SPEC IMEN Ordering Facility: [facility] Address: [address] [place] [address] Performed By: #### 2 777-1, 15107-3, 26436-3 #### [facility] CLIA [id number] [address] [place] [address] [place] CBC panel Auto (Bld)on 10-22 Erythrocyte distribution width (RBC) [Ratio] 13.6 % Normal 11.5-15.0 [facility] Comment on above: Order Comment: Specimen Type: BLOOD SPEC IMEN Ordering Facility: [facility] Address: [address] [place] [address] Performed By: #### 5 8410-2 #### [facility] CLIA [id number] [address] [place] [address] [place] Hematocrit (Bld) [Volume fraction] 40.4 % Normal 36.0-46.0 [facility] Comment on above: Order Comment: Specimen Type: BLOOD SPEC IMEN Ordering Facility: [facility] Address: [address] [place], [place] [address] Performed By: #### 5 8410-2 #### [facility] CLIA [id number] [address] [place] [address] [place] Hemoglobin (Bld) [Mass/Vol] 12.9 g/dL Normal 11.5-15.5 [facility] Comment on above: Order Comment: Specimen Type: BLOOD SPEC IMEN Ordering Facility: [facility] Address: [address] [place], [place] [address] Performed By: #### 5 8410-2 #### [facility] CLIA [id number] [address] [place] [address] [place] MCH (RBC) [Entitic mass] 28.7 pg Normal 26.0-34.0 [facility] Comment on above: Order Comment: Specimen Type: BLOOD SPEC IMEN Ordering Facility: [facility] Address: [address] [place], [place] [phone] Performed By: #### 5 8410-2 #### [facility] CLIA [id number] [address] [place] [address] [place] MCHC (RBC) [Mass/Vol] 31.9 g/dL Normal 30.5-36.0 [facility] Comment on above: Order Comment: Specimen Type: BLOOD SPEC IMEN Ordering Facility: [facility] Address: [address] [place], [place] [address] Performed By: #### 5 8410-2 #### [facility] CLIA [id number] [address] [place] [address] [place] MCV (RBC) [Entitic vol] 90.0 fL Normal 80.0-100.0 [facility] Comment on above: Order Comment: Specimen Type: BLOOD SPEC IMEN Ordering Facility: [facility] Address: [address] [place], [place] [address] Performed By: #### 5 8410-2 #### [facility] CLIA [id number] [address] [place] [address] [place] Nucleated RBC (Bld) [#/Vol] 10*3/uL Normal <0.01 [facility] Comment on above: Order Comment: Specimen Type: BLOOD SPEC IMEN Ordering Facility: [facility] Address: [address] [place] [address] Performed By: #### 5 8410-2 #### [facility] CLIA [id number] [address] [place] [address] [place] Platelet mean volume (Bld) [Entitic vol] 10.8 fL Normal 9.0-12.7 [facility] Comment on above: Order Comment: Specimen Type: BLOOD SPEC IMEN Ordering Facility: [facility] Address: [address] [place], [place] [address] Performed By: #### 5 8410-2 #### [facility] CLIA [id number] [address] [place] [address] [place] Platelets (Bld) [#/Vol] 155 10*3/uL Normal 150-400 [facility] Comment on above: Order Comment: Specimen Type: BLOOD SPEC IMEN Ordering Facility: [facility] Address: [address] [place] [address] Performed By: #### 5 8410-2 #### [facility] CLIA [id number] [address] [place] [address] [place] RBC (Bld) [#/Vol] 4.49 10*6/uL Normal 3.90-5.20 [facility] Comment on above: Order Comment: Specimen Type: BLOOD SPEC IMEN Ordering Facility: [facility] Address: [address] [place] [address] Performed By: #### 5 8410-2 #### [facility] CLIA [id number] [address] [place] [address] [place] WBC (Bld) [#/Vol] 2.98 10*3/uL Low 3.70-11.00 [facility] Comment on above: Order Comment: Specimen Type: BLOOD SPEC IMEN Ordering Facility: [facility] Address: [address] [place] [address] Performed By: #### 5 8410-2 #### [facility] CLIA [id number] [address] [place] [address] [facility] [place] CNDSon 10-22-2021 CNDS HNO ID: [id number] Author: Joceline Liang MD Service: General Surgery [...] Hospitalization: No procedures performed Hospital Course: Ms. dArian is a 66 year old female who presents as transfer from [facility] for concern for SBO. She has hx [...] has been waiting to be transferred to [facility] since then. Since presenting to [facility] [...] was tolerating PO. She was advanced to [facility] and discharged home later that day. [...] PO QD SIGNATURE: Joceline Liang MD PAGER: [phone] DATE: October 22, 2021 TIME: 11:22 AM Normal [facility] Magnesium SerPl-mCncon 10-22 Magnesium [Mass/Vol] 1.6 mg/dL Low 1.7-2.3 [facility] Comment on above: Order Comment: Specimen Type: BLOOD SPEC IMEN Ordering Facility: [facility] Address: [address] [place], [place] [phone] Performed By: #### 2 777-1, 04591-3, 60189-1 #### [facility] CLIA [id number] [address] [place], [place] [address] [place] [facility] Phosphate SerPl-mCncon 10-22 Phosphate [Mass/Vol] 3.0 mg/dL Normal 2.7-4.8 [facility] Comment on above: Order Comment: Specimen Type: BLOOD SPEC IMEN Ordering Facility: [facility] Address: [address] [place], [place] [phone] Performed By: #### 2 777-1, 80351-2, 55103-2 #### [facility] CLIA [id number] [address] [place] [address] [place] VDUVLSon 10-21-2021 VDUVLS Non-Invasive Vascula r Laboratory [facility] J35 Lower Extremity Venous Duplex Bilateral/Complete Date [...] physician: Pavithra Barker MD, NOELLE, RVT Final [id number] ynamicsSISUID See Link below for Image Normal [facility] XR SMALL BOWEL SERIESon 09-26 XR SMALL [...] small bowel. IMPRESSION: RESOLVING SMALL BOWEL OBSTRUCTION. Driver Sales: GIO Transcribe Date/Time: Oct 21 2021 2:44P Dictated by : JESSICA ADRIAN MD This examination was interpreted and the report reviewed and electronically signed by: JESSICA ADRIAN MD on Oct 21 2021 2:45PM EST [id number] Normal [facility] CBC panel Auto (Bld)on 10-20 Erythrocyte distribution width (RBC) [Ratio] 14.6 % Normal 11.5-15.0 [facility] Comment on above: Order Comment: Specimen Type: BLOOD SPEC IMEN Ordering Facility: [facility] Address: [address] [place] [address] Performed By: #### 5 8410-2 #### [facility] CLIA [id number] [address] [place] [address] [place] Hematocrit (Bld) [Volume fraction] 33.4 % Low 36.0-46.0 [facility] Comment on above: Order Comment: Specimen Type: BLOOD SPEC IMEN Ordering Facility: [facility] Address: [address] [place] [address] Performed By: #### 5 8410-2 #### [facility] CLIA [id number] [address] [place] [address] [place] Hemoglobin (Bld) [Mass/Vol] 10.4 g/dL Low 11.5-15.5 [facility] Comment on above: Order Comment: Specimen Type: BLOOD SPEC IMEN Ordering Facility: [facility] Address: [address] [place] [address] Performed By: #### 5 8410-2 #### [facility] CLIA [id number] [address] [place] [address] [place] MCH (RBC) [Entitic mass] 29.1 pg Normal 26.0-34.0 [facility] Comment on above: Order Comment: Specimen Type: BLOOD SPEC IMEN Ordering Facility: [facility] Address: [address] [place] [address] Performed By: #### 5 8410-2 #### [facility] CLIA [id number] [address] [place] [address] [place] MCHC (RBC) [Mass/Vol] 31.1 g/dL Normal 30.5-36.0 [facility] Comment on above: Order Comment: Specimen Type: BLOOD SPEC IMEN Ordering Facility: [facility] Address: [address] [place] [address] Performed By: #### 5 8410-2 #### [facility] CLIA [id number] [address] [place] [address] [place] MCV (RBC) [Entitic vol] 93.3 fL Normal 80.0-100.0 [facility] Comment on above: Order Comment: Specimen Type: BLOOD SPEC IMEN Ordering Facility: [facility] Address: [address] [place] [address] Performed By: #### 5 8410-2 #### [facility] CLIA [id number] [address] [place] [address] [place] Nucleated RBC (Bld) [#/Vol] 10*3/uL Normal <0.01 [facility] Comment on above: Order Comment: Specimen Type: BLOOD SPEC IMEN Ordering Facility: [facility] Address: [address] [place], [place] [address] Performed By: #### 5 8410-2 #### [facility] CLIA [id number] [address] [place] [address] [place] Platelet mean volume (Bld) [Entitic vol] 10.7 fL Normal 9.0-12.7 [facility] Comment on above: Order Comment: Specimen Type: BLOOD SPEC IMEN Ordering Facility: [facility] Address: [address] [place], [place] [address] Performed By: #### 5 8410-2 #### [facility] CLIA [id number] [address] [place] [address] [place] Platelets (Bld) [#/Vol] 128 10*3/uL Low 150-400 [facility] Comment on above: Order Comment: Specimen Type: BLOOD SPEC IMEN Ordering Facility: [facility] Address: [address] [place], [place] [address] Performed By: #### 5 8410-2 #### [facility] CLIA [id number] [address] [place] [address] [place] RBC (Bld) [#/Vol] 3.58 10*6/uL Low 3.90-5.20 [facility] Comment on above: Order Comment: Specimen Type: BLOOD SPEC IMEN Ordering Facility: [facility] Address: [address] [place], [place] [address] Performed By: #### 5 8410-2 #### [facility] CLIA [id number] [address] [place] [address] [place] WBC (Bld) [#/Vol] 2.96 10*3/uL Low 3.70-11.00 [facility] Comment on above: Order Comment: Specimen Type: BLOOD SPEC IMEN Ordering Facility: [facility] Address: [address] [place], [place] [address] Performed By: #### 5 8410-2 #### [facility] CLIA [id number] [address] [place] [address] [place] Comprehensive metabolic 2000 panelon 10-20-2021 Albumin [Mass/Vol] 3.7 g/dL Low 3.9-4.9 [facility] Comment on above: Order Comment: Specimen Type: BLOOD SPEC IMEN Ordering Facility: [facility] Address: [address] [place], [place] [phone] Performed By: #### 2 777-1, 23903-9, 96164-7 #### [facility] CLIA [id number] [address] [place] [address] [place] ALP [Catalytic activity/Vol] 48 U/L Normal 34-123 [facility] Comment on above: Order Comment: Specimen Type: BLOOD SPEC IMEN Ordering Facility: [facility] Address: [address] [place], [place] [address] Performed By: #### 2 777-1, , 09269-3 #### [facility] CLIA [id number] [address] [place] [address] [place] ALT [Catalytic activity/Vol] 11 U/L Normal 7-38 [facility] Comment on above: Order Comment: Specimen Type: BLOOD SPEC IMEN Ordering Facility: [facility] Address: [address] [place], [place] [address] Performed By: #### 2 777-1, , #### [facility] CLIA [id number] [address] [place] [address] [place] Anion gap [Moles/Vol] 14 mmol/L Normal 9-18 [facility] Comment on above: Order Comment: Specimen Type: BLOOD SPEC IMEN Ordering Facility: [facility] Address: [address] [place], [place] [phone] Performed By: #### 2 777-1, , #### [facility] CLIA [id number] [address] [place] [address] [place] AST [Catalytic activity/Vol] 16 U/L Normal 13-35 [facility] Comment on above: Order Comment: Specimen Type: BLOOD SPEC IMEN Ordering Facility: [facility] Address: [address] [place], [place] [phone] Performed By: #### 2 777-1, , 76506-8 #### [facility] CLIA [id number] [address] [place] [address] [place] Bilirubin [Mass/Vol] 0.6 mg/dL Normal 0.2-1.3 [facility] Comment on above: Order Comment: Specimen Type: BLOOD SPEC IMEN Ordering Facility: [facility] Address: [address] [place] [address] Performed By: #### 2 777-1, , #### [facility] CLIA [id number] [address] [place] [address] [place] Calcium [Mass/Vol] 8.8 mg/dL Normal 8.5-10.2 [facility] Comment on above: Order Comment: Specimen Type: BLOOD SPEC IMEN Ordering Facility: [facility] Address: [address] [place], [place] [phone] Performed By: #### 2 777-1, , #### [facility] CLIA [id number] [address] [place] [address] [place] Chloride [Moles/Vol] 104 mmol/L Normal 97-105 [facility] Comment on above: Order Comment: Specimen Type: BLOOD SPEC IMEN Ordering Facility: [facility] Address: [address] [place] [address] Performed By: #### 2 777-1, , #### [facility] CLIA [id number] [address] [place] [address] [place] CO2 [Moles/Vol] 24 mmol/L Normal 22-30 [facility] Comment on above: Order Comment: Specimen Type: BLOOD SPEC IMEN Ordering Facility: [facility] Address: [address] [place] [address] Performed By: #### 2 777-1, , #### [facility] CLIA [id number] [address] [place] [address] [place] Creatinine [Mass/Vol] 0.56 mg/dL Low 0.58-0.96 [facility] Comment on above: Order Comment: Specimen Type: BLOOD SPEC IMEN Ordering Facility: [facility] Address: [address] [place] [phone] Performed By: #### 2 777-1, 83734-6, 16341-7 #### [facility] CLIA [id number] [address] [place] [address] [place] ESTIMATED GLOMERULAR FILTRATION RATE 101 mL/min/1.73m??? Normal >=60 [facility] Comment on above: Order Comment: Specimen Type: BLOOD SPEC IMEN Ordering Facility: [facility] Address: [address] [place], [place] [phone] Result Comment: Humaira mated Glomerular Filtration Rate [...] actual GFR. Performed By: #### 2 777-1, 07359-9, 33124-1 #### [facility] CLIA [id number] [address] [place] [address] [place] Glucose [Mass/Vol] 100 mg/dL High 74-99 [facility] Comment on above: Order Comment: Specimen Type: BLOOD SPEC IMEN Ordering Facility: [facility] Address: [address] [place], [place] [phone] Result Comment: The [place] [employer] (ADA) provides guidance for cutoff [...] Standards of Medical Care in Diabetes 2016, [place] [employer]. Diabetes Care. 2016.39(Suppl 1). Performed By: #### 2 777-1, , #### [facility] CLIA [id number] [address] [place] [address] [place] Potassium [Moles/Vol] 2.7 mmol/L Low 3.7-5.1 [facility] Comment on above: Order Comment: Specimen Type: BLOOD SPEC IMEN Ordering Facility: [facility] Address: [address] [place], [place] [phone] Performed By: #### 2 777-1, , 47980-9 #### [facility] CLIA [id number] [address] [place] [address] [place] Protein [Mass/Vol] 6.0 g/dL Low 6.3-8.0 [facility] Comment on above: Order Comment: Specimen Type: BLOOD SPEC IMEN Ordering Facility: [facility] Address: [address] [place], [place] [phone] Performed By: #### 2 777-1, , 31896-5 #### [facility] CLIA [id number] [address] [place] [address] [place] Sodium [Moles/Vol] 142 mmol/L Normal 136-144 [facility] Comment on above: Order Comment: Specimen Type: BLOOD SPEC IMEN Ordering Facility: [facility] Address: [address] [place], [place] [phone] Performed By: #### 2 777-1, , #### [facility] CLIA [id number] [address] [place], [place] [id number] [place] Urea nitrogen [Mass/Vol] 12 mg/dL Normal 7-21 [facility] Comment on above: Order Comment: Specimen Type: BLOOD SPEC IMEN Ordering Facility: [facility] Address: [address] [place], [place] [phone] Performed By: #### 2 777-1, , 60099-3 #### [facility] CLIA [id number] [address] [place], [place] [address] [place] Lactate (Bld) [Moles/Vol]on 10-20-2021 Lactate [Moles/Vol] 0.5 mmol/L Normal 0.5-2.2 [facility] Comment on above: Order Comment: Specimen Type: BLOOD SPEC IMEN Ordering Facility: [facility] Address: [address] [place] [address] Performed By: #### 2 777-1, 07853-1, 80680-3 #### [facility] CLIA [id number] [address] [place] [address] [place] Magnesium SerPl-mCncon 10-20 Magnesium [Mass/Vol] 2.0 mg/dL Normal 1.7-2.3 [facility] Comment on above: Order Comment: Specimen Type: BLOOD SPEC IMEN Ordering Facility: [facility] Address: [address] [place] [address] Performed By: #### 2 777-1, , 13029-0 #### [facility] CLIA [id number] [address] [place] [address] [place] PT panel Coag (PPP)on 2021 INR Coag (PPP) [Relative time] 1.1 {INR} Normal 0.9-1.3 [facility] Comment on above: Order Comment: Specimen Type: BLOOD SPEC IMEN Ordering Facility: [facility] Address: [address] [place], [place] [phone] Result Comment: Rosalind min K Antagonist (VKA) Therapeutic Range: INR 2 to 3 (Target INR of 2.5) Note: For patients treated with VKA drugs, such as warfarin, the [place] [employer] 2012 Guideline recommends [...] to 3.5 (target INR of 3). Dinesh LOVE, et al. Chest 2012, 141:7S-47S Nadeen RA, et al. [facility] 2017, 70: 252-289 Performed By: #### 2 777-1, 66612-1, 92246-2 #### [facility] CLIA [id number] [address] [place] [address] [place] PT Coag (PPP) [Time] 11.9 s Normal 9.7-13.0 [facility] Comment on above: Order Comment: Specimen Type: BLOOD SPEC IMEN Ordering Facility: [facility] Address: [address] [place] [address] Performed By: #### 2 777-1, , 98721-3 #### [facility] IA [id number] [address] [place] [address] [place] Phosphate SerPl-ncon 10-20 Phosphate [Mass/Vol] 2.0 mg/dL Low 2.7-4.8 [facility] Comment on above: Order Comment: Specimen Type: BLOOD SPEC IMEN Ordering Facility: [facility] Address: [address] [place] [address] Performed By: #### 2 777-1, , 29106-3 #### [facility] [place] [id number] [address] [place] [address] [place] SARS-CoV-2 RNA Resp Ql BOBO+p robeon 10-20-2021 SARS-CoV-2 (COVID-19) RNA BOBO+probe Ql (Resp) COVID 19 RESULT: SARS-CoV-2 (Agent of COVID-19) Not Detected by RT-PCR or equivalent method. This test has been authorized by FDA under an Emergency Use Authorization (EUA). Normal [facility] Comment on above: Performed By: #### 2777-1, 09829-2, 2432 1-2 #### [facility] CLIA [id number] [address] [place] [address] [place] TYPE + SCREENon 10-20-2021 ABO A Normal [facility] Comment on above: Order Comment: Specimen Type: BLOOD SPEC IMEN Ordering Facility: [facility] Address: [address] [place], [place] [phone] Performed By: #### T SCR #### [facility] CLIA [id number] [address] [place] [address] [place] HISTORICAL AB SCR STATUS Negative Normal [facility] Comment on above: Order Comment: Specimen Type: BLOOD SPEC IMEN Ordering Facility: [facility] Address: [address] [place] [address] Performed By: #### T SCR #### [facility] CLIA [id number] [address] [place] [address] [place] Rh Nom (Bld) Negative Normal [facility] Comment on above: Order Comment: Specimen Type: BLOOD SPEC IMEN Ordering Facility: [facility] Address: [address] [place] [address] Performed By: #### T SCR #### [facility] CLIA [id number] [address] [place] [address] [place] TYPE AND SCREEN EXPIRATION 10/22/2021 23:59 Normal [facility] Comment on above: Order Comment: Specimen Type: BLOOD SPEC IMEN Ordering Facility: [facility] Address: [address] [place], [place] [phone] Performed By: #### T SCR #### [facility] CLIA [id number] [address] [place] [address] [place] aPTT PPPon 10-20-2021 aPTT Coag (PPP) [Time] 26.6 s Normal 23.0-32.4 [facility] Comment on above: Order Comment: Specimen Type: BLOOD SPEC IMEN Ordering Facility: [facility] Address: [address] [place], [place] [phone] Performed By: #### 2 777-1, 25370-0, 31222-8 #### [facility] CLIA [id number] [address] [place] [address] [id number] [place] [address] STATES [place] [facility] HISTORY PHYSICALon 2 HISTORY PHYSICAL HNO ID: [id number] Author: Albania Gilmore MD Service: General Surgery [...] old female who presents as transfer from [facility]SH for concern for SBO. She has hx [...] has been waiting to be transferred to [facility] since then. Since presenting to [facility] hospital on day 1 of her symptomology, [...] mg tablet, (more content not included)... Normal [facility] XR ABDOMEN 1V SUPINEon 10-19 XR ABDOMEN [...] Degenerative changes and dextroscoliosis of the spine. Driver Sales: PSC[employer] Transcribe Date/Time: Oct 19 2021 7:02P Dictated by : JAN HOLLIDAY MD This examination was interpreted and the report reviewed and electronically signed by: JAN HOLLIDAY MD on Oct 19 2021 7:04PM EST [id number] Normal [facility] AMYLASEon 10-18-2021 Amylase [Catalytic activity/Vol] 46 U/L Normal 25-115 [facility] Comment on above: Performed By: #### DAVID, CMADM, LIPA, CMP #### [facility] [address] [address] [address] Rashida Carcamo CARDIAC JESSICA ADMITon 022 CK [Catalytic activity/Vol] 155 U/L Normal 26-[address] [facility] Comment on above: Performed By: #### DAVID, CMADM, LIPA, CMP #### [facility] [address] [address] [address] Rashida Carcamo CK.MB [Mass/Vol] 0.64 ng/mL Normal <=3.[address] [facility] Comment on above: Performed By: #### DAVID, CMADM, LIPA, CMP #### [facility] [address] [address] [address] Rashida Carcamo HSTROP <4.0 Normal 4.0-51.[address] [facility] Comment on above: Result Comment: CUT-OFF POINTS HAVE BEEN ESTABLISHED BASED ON THE FOURTH UNIVERSAL DEFINITIONS OF MYOCARDIAL INFARCTION. THE UPPER REFERENCE LIMIT (URL) OF TROPONIN, DEFINED THE 99TH PERCENTILE OF cTnI DISTRIBUTION IN A REFERENCE POPULATION, HAS BEEN CONFIRMED THE DECISION THRESHOLD FOR [place] DIAGNOSIS. Performed By: #### A MY, CMADM, LIPA, CMP #### [facility] [address] [address] [address] Rashida Carcamo ADRIANA 49 ng/mL Normal 9-[address] [facility] Comment on above: Performed By: #### DAVID, CMADM, LIPA, CMP #### [facility] [address] [address] [address] Rashida Carcamo CBC W MANUAL DIFFon 10-19-19 22 ATYPICAL LYMPH # Normal [facility] Comment on above: Performed By: #### CBCMAN #### [facility] [address] [address] [address] Rashida Carcamo ATYPICAL LYMPH % Normal [facility] Comment on above: Performed By: #### CBCMAN #### [facility] [address] [address] [address] Rashida Carcamo BAND # 0.1 103/ul Normal 0.0-0.3 [facility] Comment on above: Performed By: #### CBCMAN #### [facility] [address] [place] [address] Dr. Rashida Carcamo BAND % 1 % Normal 0-5 [facility] Comment on above: Performed By: #### CBCMAN #### [facility] [address] [place] [address] Dr. Rashida Carcamo BASOM # 0.00 103/ul Normal 0.00-0.10 [facility] Comment on above: Performed By: #### CBCMAN #### [facility] [address] [place] [address] Dr. Rashida Caracmo BASOM % 0.0 % Critically low 0.2-2.0 [facility] Comment on above: Performed By: #### CBCMAN #### [facility] [address] [place] [address] Dr. Rashida Carcamo BLAST # Normal [facility] Comment on above: Performed By: #### CBCMAN #### [facility] [address] [place] [address] Dr. Rashida Carcamo BLAST % Normal [facility] Comment on above: Performed By: #### CBCMAN #### [facility] [address] [place] [address] Dr. Rashida Carcamo CORRECTED WBC Normal 4.0-11.0 [facility] Comment on above: Performed By: #### CBCMAN #### [facility] [address] [address] [address] Rashida Carcamo EOS # 0.00 103/ul Normal 0.00-0.70 [facility] Comment on above: Performed By: #### CBCMAN #### [facility] [address] [address] [address] Rashida Carcamo EOS% 0.0 % Critically low 0.9-7.0 [facility] Comment on above: Performed By: #### CBCMAN #### [facility] [address] [place] [address] Dr. Rashida Carcamo HCT 44.6 % Normal 36.0-48.0 [facility] Comment on above: Performed By: #### CBCBONY #### [facility] [address] [place] [address] Dr. Rashida Carcamo HGB 14.4 g/dl Normal 12.0-16.0 [facility] Comment on above: Performed By: #### CBCBONY #### [facility] [address] [place] [address] Dr. Rashida Carcamo LYMPHM # 1.23 103/ul Normal 1.20-3.80 [facility] Comment on above: Performed By: #### CBCBONY #### [facility] [address] [place] [address] Dr. Rashida Carcamo LYMPHM% 15.0 % Critically low 20.5-60.[address] [facility] Comment on above: Performed By: #### CBCMAN #### [facility] [address] [place] [address] Dr. Rashida Carcamo MCH 29.0 pg Normal 26.7-34.[address] [facility] Comment on above: Performed By: #### CBCMAN #### [facility] [address] [place] [address] Dr. Rashida Carcamo MCHC 32.3 g/dl Normal 29.9-35.[address] [facility] Comment on above: Performed By: #### CBCBONY #### [facility] [address] [place] [address] Dr. Rashida Carcamo MCV 89.9 fL Normal 81.0-99.0 [facility] Comment on above: Performed By: #### CBCBONY #### [facility] [address] [place] [address] Dr. Rashida Carcamo METAMYELOCYTE # Normal [facility] Comment on above: Performed By: #### CBCBONY #### [facility] [address] [place] [address] Dr. Rashida Carcamo METAMYELOCYTE % Normal [facility] Comment on above: Performed By: #### CBCBONY #### [facility] [address] [place] [address] Dr. Rashida Carcamo MONOM# 0.25 103/ul Critically low 0.30-0.80 [facility] Comment on above: Performed By: #### CBCBONY #### [facility] [address] [place] [address] Dr. Rashida Carcamo MONOM% 3.0 % Normal 1.7-12.0 [facility] Comment on above: Performed By: #### CBCBONY #### [facility] [address] [place] [address] Dr. Rashida Carcamo MPV 10.9 fL Normal 9.5-13.5 [facility] Comment on above: Performed By: #### JOHN #### [facility] [address] [place] [address] Dr. Rashida Carcamo MYELOCYTE # Normal [facility] Comment on above: Performed By: #### CBCBONY #### [facility] [address] [place] [address] Dr. Rashida Carcamo MYELOCYTE % Normal [facility] Comment on above: Performed By: #### CBCBONY #### [facility] [address] [place] [address] Dr. Rashida Carcamo NRBC Normal [facility] Comment on above: Performed By: #### CBCBONY #### [facility] [address] [place] [address] Dr. Rashida Carcamo PLT 172 103/ul Normal 150-[address] [facility] Comment on above: Performed By: #### JOHN #### [facility] [address] [address] [address] Rashida Carcamo RBC 4.96 106/ul Normal 4.20-5.40 [facility] Comment on above: Performed By: #### JOHN #### [facility] [address] [address] [address] Rashida Carcamo RDW 14.4 % Normal 11.0-15.0 [facility] Comment on above: Performed By: #### ROMIEBONY #### [facility] [address] [address] [address] Rashida Carcamo SEG # 6.64 103/ul Critically high 1.40-6.50 [facility] Comment on above: Performed By: #### ROMIEBONY #### [facility] [address] [place] [address] Dr. Rashida Carcamo SEG % 81.0 % Critically high 43.0-75.0 [facility] Comment on above: Performed By: #### ROMIEBONY #### [facility] [address] [place] [address] Dr. Rashida Carcamo WBC 8.2 103/ul Normal 4.0-11.0 [facility] Comment on above: Performed By: #### JOHN #### [facility] [address] [place] [address] ABD/PELV W CONon [...] as clinically indicated. Electronically authenticated by: BRIEN JAIMES Date: 2021-10-18 06:24 Normal [facility] Covid-19 PCR (CVDTBH)on 09-26 SARS-CoV-2 (COVID-19) RNA BOBO+probe Ql (Unsp spec) Not detected Normal NOT DETECTED [facility] Comment on above: Result Comment: When diagnostic [...] for this test is supported by the Power [employer] Assistant of Health and Human Service's declaration that [...] be used). Performed By: #### C VDTBH ####[facility] [id number] [place], [place] [address]KuDr. Rashida Carcamo ER URINE PROFILEon 2 Bilirubin Ql (U) Negative Normal NEGATIVE [facility] Comment on above: Performed By: #### ERUR #### [facility] [address] [place], [place] [address] Dr. Rashida Carcamo Clarity (U) SL CLOUDY Abnormal CLEAR [facility] Comment on above: Performed By: #### ERUR #### [facility] [address] [place] [address] Dr. Rashida Carcamo Color (U) LT. YELLOW Normal YELLOW [facility] Comment on above: Performed By: #### ERUR #### [facility] [address] [place] [address] Dr. Rashida PAZ A micrscopic examina tion will be performed if indicated. Normal [facility] Comment on above: Performed By: #### ERUR #### [facility] [address] [place] [address] Dr. Rashida Carcamo Glucose Ql (U) Negative Normal NEGATIVE [facility] Comment on above: Performed By: #### ERUR #### [facility] [address] [place] [address] Dr. Rashida Carcamo Hemoglobin Ql (U) Negative Normal NEGATIVE [facility] Comment on above: Performed By: #### ERUR #### [facility] [address] [place] [address] Dr. Rashida Carcamo Ketones Ql (U) 40 mg/dl Abnormal NEGATIVE [facility] Comment on above: Performed By: #### ERUR #### [facility] [address] [place] [address] Dr. Rashida Carcamo LEUKOCYTES Negative Normal NEGATIVE [facility] Comment on above: Performed By: #### ERUR #### [facility] [address] [place] [address] Dr. Rashida Carcamo Nitrite Ql (U) Negative Normal NEGATIVE [facility] Comment on above: Performed By: #### ERUR #### [facility] [address] [place] [address] Dr. Rashida Carcamo pH (U) 8.0 [pH] Normal 5-[address] [facility] Comment on above: Performed By: #### ERUR #### [facility] [address] [place] [address] Dr. Rashida Carcamo SPEC GRAVITY 1.015 Normal 1.005-<=1.025 [facility] Comment on above: Performed By: #### ERUR #### [facility] [address] [place] [address] Dr. Rashida Carcamo UA PROTEIN Negative Normal NEGATIVE/ TRACE [facility] Comment on above: Performed By: #### ERUR #### [facility] [address] [place] [address] Dr. Rashida Carcamo UR MICRO IND NOT INDICATED Normal [facility] Comment on above: Performed By: #### ERUR #### [facility] [address] [place] [address] Dr. Rashida Carcamo Urobilinogen Qn (U) 0.2 {Lorna'U}/dL Normal 0.2 - 1.[address] [facility] Comment on above: Performed By: #### ERUR #### [facility] [address] [place] [address] Dr. Rashida Carcamo LACTATE/LACTIC ACIDon 2021 Lactate [Moles/Vol] 1.3 mmol/L Normal 0.4-1.[address] [facility] Comment on above: Performed By: #### LACT #### [facility] [address] [place] [address] Dr. Rashida Carcamo LIPASEon 10-18-2021 Lipase [Catalytic activity/Vol] 127.0 U/L Normal 73.0-393.0 [facility] Comment on above: Performed By: #### DAVID, CMADM, LIPA, CMP #### [facility] [address] [place] [address] Dr. Rashida Carcamo PROF 14(COMP METB)on 022 Albumin [Mass/Vol] 4.5 g/dL Normal 3.4-5.0 [facility] Comment on above: Performed By: #### DAVID, CMADM, LIPA, CMP #### [facility] [address] [place] [address] Dr. Rashida Carcamo Albumin/Globuli n [Mass ratio] 1.2 {ratio} Normal [facility] Comment on above: Performed By: #### DAVID, CMADM, LIPA, CMP #### [facility] [address] [place] [address] Dr. Rashida Carcamo ALP [Catalytic activity/Vol] 67 U/L Normal 46-116 [facility] Comment on above: Performed By: #### DAVID, CMADM, LIPA, CMP #### [facility] [address] [place] [address] Dr. Rashida Carcamo ALT [Catalytic activity/Vol] 29 U/L Normal 14-59 [facility] Comment on above: Performed By: #### DAVID, CMADM, LIPA, CMP #### [facility] [address] [place] [address] Dr. Rashida Carcamo Anion gap [Moles/Vol] 14.1 mmol/L Normal [facility] Comment on above: Performed By: #### DAVID, CMADM, LIPA, CMP #### [facility] [address] [place] [address] Dr. Rashida Carcamo AST [Catalytic activity/Vol] 31 U/L Normal 15-37 [facility] Comment on above: Performed By: #### DAVID, CMADM, LIPA, CMP #### [facility] [address] [place] [address] Dr. Rashida Carcamo Bilirubin [Mass/Vol] 0.8 mg/dL Normal 0.2-1.0 [facility] Comment on above: Performed By: #### DAVID, CMADM, LIPA, CMP #### [facility] [address] [place] [address] Dr. Rashida Carcamo Calcium [Mass/Vol] 10.2 mg/dL Critically high 8.5-10.[address] [facility] Comment on above: Performed By: #### DAVID, CMADM, LIPA, CMP #### [facility] [address] [place] [address] Dr. Rashida Carcamo Chloride [Moles/Vol] 100 mmol/L Normal 98-[address] [facility] Comment on above: Performed By: #### DAVID, CMADM, LIPA, CMP #### [facility] [address] [place] [address] Dr. Rashida Carcamo CO2 [Moles/Vol] 29.4 mmol/L Normal 21.0-32.[address] [facility] Comment on above: Performed By: #### DAVID, CMADM, LIPA, CMP #### [facility] [address] [address] [address] Rashida Carcamo Creatinine [Mass/Vol] 0.70 mg/dL Normal 0.55-1.02 [facility] Comment on above: Performed By: #### DAVID, CMADM, LIPA, CMP #### [facility] [address] [address] [address] Rashida Carcamo EGFR-AF MAURITANIAN >60 Normal >=60 [facility] Comment on above: Performed By: #### DAVID, CMADM, LIPA, CMP #### [facility] [address] [address] [address] Rashida Carcamo EGFR-NON AF MAURITANIAN >60 Normal >=60 [facility] Comment on above: Performed By: #### DAVID, CMADM, LIPA, CMP #### [facility] [address] [place] [address] Dr. Rashida Carcamo Globulin (S) [Mass/Vol] 3.9 g/dL Normal [facility] Comment on above: Performed By: #### DAVID, CMADM, LIPA, CMP #### [facility] [address] [address] [address] Rashida Carcamo Glucose [Mass/Vol] 164 mg/dL Critically high 74-106 [facility] Comment on above: Performed By: #### DAVID, CMADM, LIPA, CMP #### [facility] [address] [address] [address] Rashida Carcamo Potassium [Moles/Vol] 3.5 mmol/L Normal 3.5-5.[address] [facility] Comment on above: Performed By: #### DAVID, CMADM, LIPA, CMP #### [facility] [address] [address] [address] Rashiad Carcamo Protein [Mass/Vol] 8.4 g/dL Critically high 6.4-8.[address] [facility] Comment on above: Performed By: #### DAVID, CMADM, LIPA, CMP #### [facility] [address] [address] [address] Rashida Carcamo Sodium [Moles/Vol] 140 mmol/L Normal 136-145 [facility] Comment on above: Performed By: #### DAVID, CMADM, LIPA, CMP #### [facility] [address] [address] [address] Rashida Carcamo Urea nitrogen [Mass/Vol] 24.0 mg/dL Critically high 7.0-18.0 [facility] Comment on above: Performed By: #### DAVID, CMADM, LIPA, CMP #### [facility] [address] [address] [address] Rashida Carcamo Urea nitrogen/Creati nine [Mass ratio] 34.3 mg/mg Normal [facility] Comment on above: Performed By: #### DAVID, CMADM, LIPA, CMP #### [facility] [address] [address] [address] Rashida Carcamo XR FOOT KARLOS MIN [...] by: ISAIAH ROJAS Date: 2021-08-06 12:00 Normal [facility] CASE MANAGEMon 01-13-2017 CASE MANAGEM HNO ID: [id number] thor: Samanta (Rn) Prashanth, RNService: Care ManagementAuthor Type: Registered NurseType: Care Mgt Progress NoteFiled: 01/13/2017 11:46 AMNote Text:MULTIDISCIPLINARY ROUNDSSERVICE DATE: 01/13/2017 ADMISSION DATE: 01/08/2017SERVICE TIME: 11:43 AM ANTICIPATED D/C DATE: 01/13/2017Problem List:ACTIVE PROBLEM LISTIron Deficiency AnemiaPud (Peptic Ulcer Disease)Carotid StenosisVertigoTachycardiaBpv (Benign Positional Vertigo)Hld (Hyperlipidaemia)Rectal BleedingExertional DyspneaEmphysema of Lung (Hcc)Alcohol AbuseStatus Post SurgerySbo (Small Bowel Obstruction) ([facility])Attendees Present at Rounds:Product Marketing Intern: Alison ALFONSO ACMNurse Utilities Manager: Marlena Albrechtff Nurse: Laura Discussed on Rounds:Discharge NeedsAnticipated Discharge [...] January 13, 2017 : 11:43 AM CSN: [id number] [facility] CNDSon 01-13-2017 CNDS HNO ID: [id number] thor: Natasha (Anselmo) Anila Yun: General SurgeryAuthor Type: Nurse PractitionerType: Discharge SummariesFiled: 01/13/2017 1:38 PMNote Text:DISCHARGE SUMMARYPATIENT NAME: Sofie Adrian ADMISSION DATE: 01/08/2017MRN: [id number] DISCHARGE DATE: 01/13/2017Attending Physician: Adis Richardson for Hospitalization: abdominal painActive Problems: SBO (small bowel obstruction) (HCC)Resolved Problems: * No resolved hospital problems. *Operations During Hospitalization: Diagnostic laparoscopy and lysis ofadhesionsProcedures During Hospitalization: intubation for surgeryHospital Course:Admitted on 01/08/17 with abdominal pain, nausea and vomiting from [facility]. Evaluated by surgery and CT [...] (141 lb 6.4 oz) SpO2 95% BMI26.72 kg/c5Ypuqxsfwwmd Provided to Patient:Symptoms or health problems to watch for after I leave the hospital:-Increasing abdominal pain or ecixldcv-Ueadqasl-Hmlh or no urine-Fever greater than 101.5?F (38.6?C) [...] should be taken as instructed by your surgeonincluding:Anti-diarrhea l medications:Benefiber, Citrucel, Fibercon, Konsyl, or Metamucil.Imodium, Lomotil, [...] that worsen your function should be avoided.8. Brinkley: If you have melida, these should be [...] and set up an appointment at [phone] Medications: Discharge Medication List as of 01/13/2017 [...] procedure)Comments:Reason for Stopping:Future AppointmentsDate Time Provider Department Iiqzvq8801/26/2017 2:00 PM [id number], KATHRYN (ORDER ADMINISTRATOR) [id number] [facility] - Office [address] [place] [address] [address] [place] [address] *[facility] and [facility] flower shop*TIME OF CARE: Discharge Management: I personally spent greater than 30minutes involved in the discharge management of this patient.SIGNATURE: Natasha YUN CNP PAGER: [phone]: January 13, 2017TIME: 9:50 AM [facility] NURSING PROGon 01-13-2017 NURSING PROG HNO ID: [id number] thor: Saida RennreRn) RAJ Rodriguezervice: NursingAuthor Type: Registered NurseType: Nursing Progress NoteFiled: 01/13/2017 1:14 PMNote Text: Nursing Progress NotePatient Name: Sofie Donald JakeMRN: [id number] Location: [place] [id number] Da dominique Note:IV Heplock D/C'd. Discharge instructions reviewed with patient, statesunderstanding. RX for Colace and MOM. No further questions at this time.1313: D/C off unit via wheelchair, picking up patient.This note was completed by: Saida Rodriguez RN [facility] NURSING PROG HNO ID: [id number] thor: Carmen Kumari) Sangita RNService: (none)Author Type: Registered NurseType: Nursing Progress NoteFiled: 01/13/2017 2:33 AMNote Text: Nursing Progress NotePatient Name: Sofie AdrianMRN: [id number] [address]: [address]/[id number] Sarah dsg changed earlier approx 2200 as saturated with serosang drainage.Gown changed. Pain controlled with toradol and tylenol and 5mg oxycodonegiven earlier. Pt declined MOM and colace as states had at least eightBMs loose today . Reports is chronic diarrhea after colon resection inpast.This note was completed by: Carmen Quesada RN [facility] PROGRESSon 01-13-2017 PROGRESS HNO ID: [id number] thor: Carlos (Res) PhilipService: General SurgeryAuthor Type: ResidentType: Progress NotesFiled: 01/13/2017 [...] wound. Patient tolerated the procedure well.Carlos Garcia MDGenefirelands regional medical center south campus SurgeryFor any questions please contactSurgery Green Team pager [phone] weekdays.Or [phone] weeknights (6pm - 6am) and weekends.Date: 01/13/2017Time: 10:17 AM [facility] PROGRESS HNO ID: [id number] thor: Adis Bryante: General SurgeryAuthor Type: PhysicianType: Progress NotesFiled: 01/13/2017 1:09 PMNote Text:General Surgery Progress NoteService Date: January 13, 2017Patient Name: Sofie AdrianMRN: [id number] and Plan: 61 year old female with SBO and strangulated internalhernia??POD 4?s/p laparoscopic lysis of adhesions, doing well. Leukopenia?- Pain control: tylenol, PO oxy- FEN/GI: GIS diet, mIVFs- No Trujillo- VTE Prophylaxis: SQH, SCDs- Routine surgical care: IS, OOB- Dispo: Possible DC todayPlan to be discussed with Surgery Staff.Raghu Westbrook MDFor any questions please contactSurgery Green Team pager [phone] weekdays.Or [phone] weeknights (6pm - 6am) and weekends.Date: 01/13/2017Time: 7:55 AMSubjective:Interval Events: none. Pain: controlled. + bowel function. No othercomplaints.Physical Exam:BP 126/71 Pulse 65 Temp 36.6 ?C (97.9 ?F) (Oral) Resp 16 Ht 154.9cm (5' 1 ) Wt 64.1 kg (141 lb 6.4 oz) SpO2 95% BMI 26.72 kg/a6GSUZELT/NEURO: Awake, Alert, no distressHEENT: Normocephalic, Atraumatic, sclera [...] and Output:Date 01/12/17 07 - 01/13/17 0659 01/13/17 07 - 01/14/17 0659Shift 7353-2636 7362-6165 4401-1889 24 Hour Total 0663-8118 6586-67581951-0211 24 Hour TotalINTAKE PO 120 120 240 PO 120 120 240 IV 1148 1148 D5 0.45%NS w/20KCL 1148 1148 Shift Total 1268 120 1388OUTPUT Urine 1200 541 698 6414 100 100 Void (ml) 1200 486 169 8085 100 100 Tubes 190 140 210 540 30 30 Drain/Tube Output (Drain/Tube Hasmukh Atkins Right Abdomen 01/09/1719Fr) 190 140 210 540 30 30 # of BMs Number of BMs 1 x 2 x 1 x 4 x Shift Total 1390 434 829 9440 130 130Weight (kg) 64.1 64.1 64.1 64.1 [...] mg tablet Take 25 mg bymouth once daily.HYDROcodone-acetaminophe n (NORCO) 5-325 mg per tablet Take 1 [...] Evan Landeros, TREYeptember 2016 1:09 PM Normal [facility] Basic Metabolic Panlon 01-12 Anion gap 10 mmol/L Normal 01-12 [facility] Comment on above: Performed By: #### CBC, BMP, MG1 ####[place] [place] [address] Calcium 8.3 mg/dL Low 8.5-10.5 [facility] Comment on above: Result Comment: Reviewed Performed By: #### C BC, BMP, MG1 ####[place] [address] Chloride 105 mmol/L Normal 98-110 [facility] Comment on above: Performed By: #### CBC, BMP, MG1 ####[place] [address] CO2 23 mmol/L Normal 23-32 [facility] Comment on above: Performed By: #### CBC, BMP, MG1 ####[place] [address] Creatinine 0.54 mg/dL Low 0.70-1.40 [facility] Comment on above: Performed By: #### CBC, BMP, MG1 ####[place] [place] [address] eGFR (non-black) mL/min/{1.73_m2} Normal >60 [facility] Comment on above: Performed By: #### CBC, BMP, MG1 ####[place] [address] Glucose mass conc 111 mg/dL High 65-100 [facility] Comment on above: Performed By: #### CBC, BMP, MG1 ####[place] [address] Potassium molar conc 4.1 mmol/L Normal 3.5-5.0 [facility] Comment on above: Result Comment: Reviewed Performed By: #### C BC, BMP, MG1 ####[address] [place] [phone] Sodium 138 mmol/L Normal 132-148 [facility] Comment on above: Performed By: #### CBC, BMP, MG1 ####[address] [facility] [place] [phone] Urea nitrogen 4 mg/dL Low 8-25 [facility] Comment on above: Performed By: #### CBC, BMP, MG1 ####[address] [facility] [phone] CASE MGT INIT ASSESon 2016 CASE MGT INIT LINDA HNO ID: [id number]: Negar (Middle School Resource Teacher-S) SOMMER Johnervice: Social WorkAuthor Type: Social WorkerType: Care Mgt Initial AssessmentFiled: 01/12/2017 10:39 AMNote Text:CARE MANAGEMENT: ASSESSMENT AND DISCHARGE PLANSERVICE DATE: 01/12/2017SERVICE TIME: 0940PRIMARY CARE PHYSICIAN:Sakina Mercerne: [phone] STATUS: InpatientPOTENTIAL DISCHARGE PLANSHomePatient/Representativ e Stated Goals: I dont think I will be needinganything when I go home per ptNeeds Prior to Discharge: Ready for DischargeHealth Insurance: Supermed PlusLiving Arrangement: HomeLives With: Spouse. Dtr lives nearby and assists with cleaningFinancial Resources: Pt and own a body shopPrimary Contact:Extended Emergency Contact InformationPrimary Emergency Contact: Ying Adrian Xlkwitgo: ChildSupportive: YesOther Important Patient Contacts: Pt states [...] days? NoHas the Patient Been in a Detention Facility in the Past 30 days? NoFREEDOM OF CHOICE EXPLAINED:Yes with ptHANDOFF COMMUNICATION:Primary Care Physician: Tommy Anaya DO .Summary will be routed via [employer]Crow[employer] at d/cPt [facility] (about [address] [facility]) She is hopingto return home with no needs, but family can assist should needs arise.Dtr or will transport at d/c.SIGNATURE: BISMARK Jacobs PATIENT NAME: Sofie AdrianDATE: January 12, 2017 : 10:32 AM PAGER/CONTACT #: [phone] [facility] 01-12-2017 Erythrocyte distribution width Auto Ratio (RBC) 12.7 % Normal 11.5-15.0 [facility] Comment on above: Performed By: #### CBC BMP, MG1 ####[place] [address] Erythrocytes (RBC) 2.78 10*6/uL Low 3.90-5.20 [facility] Comment on above: Performed By: #### CBC BMP, MG1 ####[place] [address] Hematocrit (HCT) 27.9 % Low 36.0-46.0 [facility] Comment on above: Performed By: #### ROMIE BMP, MG1 ####[place] [address] Hemoglobin mass conc (Bld) 8.8 g/dL Low 11.5-15.5 [facility] Comment on above: Performed By: #### ROMIE BMP, MG1 ####[place] [address] MCH 31.7 pG Normal 26.0-34.0 [facility] Comment on above: Performed By: #### RITA GRUBBS, MG1 ####[place] [address] MCHC mass conc (RBC) 31.5 g/dL Normal 30.5-36.0 [facility] Comment on above: Performed By: #### CBC, BMP, MG1 ####[place] [address] MCV 100.4 fL High 80.0-100.0 [facility] Comment on above: Performed By: #### CBC, BMP, MG1 ####[place] [address] Platelet mean volume (PMV) 11.1 fL Normal 9.0-12.7 [facility] Comment on above: Performed By: #### CBC, BMP, MG1 ####[address] [place] [phone] Platelets 135 10*3/uL Low 150-400 [facility] Comment on above: Performed By: #### CBC, BMP, MG1 ####[address] [place], [place] [phone] WBC (Leukocytes) 3.27 10*3/uL Low 3.70-11.00 [facility] Comment on above: Performed By: #### CBC, BMP, MG1 ####[address] [phone] Magnesiumon 01-12-2017 Magnesium 1.8 mg/dL Normal 1.7-2.6 [facility] Comment on above: Performed By: #### CBC, BMP, MG1 ####[address] [phone] PROGRESSon 01-12-2017 PROGRESS HNO ID: [id number] thor: TREY Villavicencio Reservice: General SurgeryAuthor Type: ResidentType: Progress NotesFiled: 01/12/2017 7:27 AMNote Text:General Surgery Progress NoteService Date: January 12, 2017Patient Name: Sofie AdrianMRN: [id number] and Plan: Sofie Adrian is a 61 year old female with SBO andstrangulated internal hernia??POD 3?s/p laparoscopic lysis of adhesions,doing well. Leukopenia- Pain control: tylenol, DC morphine HOSE WRAPPER, transition to PO oxy- FEN/GI: GIS diet, mIVFs- No Trujillo- VTE Prophylaxis: SQH, SCDs- Routine surgical care: IS, OOB- Dispo: RNFPlan to be discussed with Surgery Staff.Raghu Westbrook MDFor any questions please contactSurgery Green Team pager [phone] weekdays.Or [phone] weeknights (6pm - 6am) and weekends.Date: 01/12/2017Time: 5:51 AMSubjective:Interval Events: Resting well. No acute issues overnight. BM-, Flatus+.Pain -. N-. Denies SoB/CPPhysical Exam:BP 110/67 Pulse 76 Temp 36.5 ?C (97.7 ?F) (Oral) Resp 16 Ht 154.9cm (5' 1 ) Wt 64.1 kg (141 lb 6.4 oz) SpO2 95% BMI 26.72 kg/g7ZCONSYU/NEURO: Awake, Alert, no distressHEENT: Normocephalic, Atraumatic, sclera [...] 01/12/17 0659 01/12/17 07 - 01/13/17 0659Shift 1056-2869 1873-7949 9542-2092 24 Hour Total 0789-7269 9008-88466967-5594 24 Hour TotalINTAKE PO 120 120 240 PO 120 120 240 IV 080 313 7449 D5 0.45%NS w/20KCL 670 009 9945 Shift Total 1025 739 1764OUTPUT Urine 475 375 709 0832 Void (ml) 275 363 966 8011 Tube Output ([REMOVED] Drain Trujillo 01/09/17 16 Haitian ) 200 200 Tubes 140 130 100 370 Drain/Tube Output (Drain/Tube Hasmukh Atkins Right Abdomen 01/09/1719Fr) 140 130 100 370 Shift Total 615 730 500 1845Weight (kg) 64.1 64.1 64.1 64.1 64.1 64.1 64.1 64.1Current Medications:Current hospital medications:pantoprazole DR 20 mg tab(s) (PROTONIX) 20 mg ORAL DAILY (6 AM)dextrose 5% in NaCl 0.45% with 20 mEq/L KCl iv infusion 100 mL/hrINTRAVENOUS CONTINUOUSmorphine HOSE WRAPPER 1 mg/mL in NaCl 0.9% 100 mL INTRAVENOUS CONTINUOUSmorphine 1 mg/mL HOSE WRAPPER CLINICIAN DOSE 1 mg 1 mg INTRAVENOUS [...] mg tablet Take 25 mg bymouth once daily.HYDROcodone-acetaminophe n (NORCO) 5-325 mg per tablet Take 1 [...] PRODUCT Indications: OSTEO-BIFLEX Takes 2 PO QD [facility] PT EDon 01-12-2017 PT ED HNO ID: [id number] thor: Nikki Tinajero (Pharmacist)Service: PharmacyAuthor Type: PharmacistType: Patient EducationFiled: 01/12/2017 11:10 AMNote Text:Clinical Pharmacy ServicesHigh Risk: Daily Medication AssessmentPatient Name: Sofie AdrianN: [id number] Date: 01/08/2017Service Date and Time: 01/12/2017 10:52 AMNew MedicationsThe following medications have been started since last pharmacy review:Protonix, ToradolMedication education has been completed: Yes or Comments: patient alsoasked about dosing her metoprololSignature: Julius Feliz (Lan Specialist)[place]: [phone]: [phone] Addendum:The above case has been reviewed and discussed with the pharmacy helper.I agree with the assessment/plan described by the student. Changes andadditions to the details in the above note are indicated by italics and .Nikki Tinajero, Pharmacist01/12/2017 11:10 [id number] [facility] ANES Viktor 01-11-2017 ANES POST HNO ID: [id number] thor: Payam Gomezervice: AnesthesiologyAuthor Type: AnesthesiologistType: Anesthesia PostOpFiled: 01/11/2017 12:37 PMNote Text:POST ANESTHESIA EVALUATION NOTESERVICE DATE: 01/11/2017SERVICE TIME: 12:36 PMDOB: 1955Vitals: 6 01/12/1708100BP: 93/60 101/59 104/61 114/64Pulse: 72 87 82 [...] 11, 2017 : 12:36 PM PAGER/CONTACT #: [phone] [facility] Basic Metabolic Panlon 01-11 Anion gap 9 mmol/L Normal 01-12 [facility] Comment on above: Performed By: #### CBC, BMP, MG1 ####[place] [address] [phone] Calcium 7.4 mg/dL Low 8.5-10.5 [facility] Comment on above: Performed By: #### RITA GRUBBS, MG1 ####[place] [address] Chloride 104 mmol/L Normal 98-110 [facility] Comment on above: Performed By: #### RITA GRUBBS, MG1 ####[place] [address] CO2 23 mmol/L Normal 23-32 [facility] Comment on above: Performed By: #### RITA GRUBBS, MG1 ####[place] [address] Creatinine 0.64 mg/dL Low 0.70-1.40 [facility] Comment on above: Performed By: #### RITA GRUBBS, MG1 ####[place] [address] eGFR (non-black) mL/min/{1.73_m2} Normal >60 [facility] Comment on above: Performed By: #### RITA GRUBBS, MG1 ####[place] [address] Glucose mass conc 188 mg/dL High 65-100 [facility] Comment on above: Performed By: #### RITA GRUBBS, MG1 ####[place] [address] Potassium molar conc 3.4 mmol/L Low 3.5-5.0 [facility] Comment on above: Performed By: #### RITA GRUBBS, MG1 ####[place] [address] Sodium 136 mmol/L Normal 132-148 [facility] Comment on above: Performed By: #### ROMIE BMP, MG1 ####[place] [address] Urea nitrogen 10 mg/dL Normal 8-25 [facility] Comment on above: Performed By: #### CBC BMP, MG1 ####[place] [address] CBCon 01-11-2017 Erythrocyte distribution width Auto Ratio (RBC) 12.9 % Normal 11.5-15.0 [facility] Comment on above: Performed By: #### CBC BMP, MG1 ####[place] [address] Erythrocytes (RBC) 2.55 10*6/uL Low 3.90-5.20 [facility] Comment on above: Performed By: #### ROMIE BMP, MG1 ####[place] [address] Hematocrit (HCT) 25.8 % Low 36.0-46.0 [facility] Comment on above: Performed By: #### CBC BMP, MG1 ####[address] Hemoglobin mass conc (Bld) 8.2 g/dL Low 11.5-15.5 [facility] Comment on above: Performed By: #### CBC BMP, MG1 ####[place] [address] MCH 32.2 pG Normal 26.0-34.0 [facility] Comment on above: Performed By: #### CBC BMP, MG1 ####[address] MCHC mass conc (RBC) 31.8 g/dL Normal 30.5-36.0 [facility] Comment on above: Performed By: #### CBC, BMP, MG1 ####[place] [address] MCV 101.2 fL High 80.0-100.0 [facility] Comment on above: Performed By: #### CBC BMP, MG1 ####[place] [address] [place], [place] [phone] Platelet mean volume (PMV) 10.9 fL Normal 9.0-12.7 [facility] Comment on above: Performed By: #### ROMIE, BMP, MG1 ####[facility] [place], [place] [phone] Platelets 112 10*3/uL Low 150-400 [facility] Comment on above: Performed By: #### ROMIE, BMP, MG1 ####[place] [address] [place] [phone] WBC (Leukocytes) 2.75 10*3/uL Low 3.70-11.00 [facility] Comment on above: Performed By: #### RITA GRUBBS, MG1 ####[address] [phone] Magnesiumon 01-11-2017 Magnesium 1.7 mg/dL Normal 1.7-2.6 [facility] Comment on above: Performed By: #### ROMIE, RITA, MG1 ####[address] [phone] NURSING PROGon 01-11-2017 NURSING PROG HNO ID: [id number] thor: Josie (Rn) RAJ Palafoxervice: NursingAuthor Type: Registered NurseType: Nursing Progress NoteFiled: 01/12/2017 12:04 AMNote Text: Nursing Progress NotePatient Name: Sofie Donald LaurenN: [id number] Location: [facility]3B21/RU-LD5V-34 Pt awake and alert. Pt c/o 2/10 abdominal pain. Pt minimally using PCApump. Explained POC and probable advancement in diet and possiblediscontinue of HOSE WRAPPER pump. Pt understands. Will continue to monitor.This note was completed by: Josie Palafox RN,BSN [facility] NURSING PROG HNO ID: [id number] thor: Judy Kumari) [place] Garcia: (none)Author Type: Registered NurseType: Nursing Progress NoteFiled: 01/11/2017 6:28 PMNote Text: Nursing Progress NotePatient Name: Sofie AdrianMRN: [id number] Location: [place] [address]/BN-[id number] Da dominique Note:IV/HOSE WRAPPER maintained.Taking diet fair.No n/v.Voiding clearurine.Up in chair for about one hour,ambulates to bathroom with walker andone assist.Will reassess.This note was completed by: Judy Garcia RN [facility] NURSING PROG HNO ID: [id number] thor: Judy RennerRn) [place] Garcia: (none)Author Type: Registered NurseType: Nursing Progress NoteFiled: 01/11/2017 9:48 AMNote Text: Nursing Progress NotePatient Name: Sofie AdrianMRN: [id number] Location: [place] [address]/OQ-[id number]-11 Da dominique Note:IV/HOSE WRAPPER morphine maintained.Diet advanced to clear liquid thento GI soft-waiting for tray at this time.Taking clear liquids well.Non/v.Trujillo removed at 8:10 A.M.,has not voided as of yet.Lap sites cleanand well approximated.No drainage noted.Dressing around Hasmukh Atkins inplace and draining reddish drainage.Abd. soft,distended,and tender.Bowelsounds hypoactive.Denies pain.Will reassess.This note was completed by: Judy Garcia RN [facility] PROGRESSon 01-11-2017 PROGRESS HNO ID: [id number] thor: Reji Hollis: General SurgeryAuthor Type: PhysicianType: Progress NotesFiled: 01/11/2017 3:04 PMNote Text: SURGERY INPATIENT PROGRESS NOTEName: Sofie AdrianMRN: [id number] and Plan:61 year old female with SBO and strangulated internal hernia POD 2 s/plaparoscopic lysis of adhesions, doing well?- Pain control: tylenol, morphine HOSE WRAPPER- FEN/GI: GIS diet, NGT removed yesterday- ID: On Abx Zosyn- DC Trujillo today- VTE Prophylaxis: SQH, SCDs- Routine surgical care: IS, OOB- Dispo: RNFS: Resting well. No acute issues overnight. BM-, Flatus+. Pain -. N-.Denies SoB/CP.O:Current hospital medications:phenol 1 [place] (CHLORASEPTIC) 1 [place] MUCOUS MEMBRANE (TOPICAL MOUTH ANDTHROAT) q 2 H PRNdextrose 5% in NaCl 0.45% with 20 mEq/L KCl iv infusion 100 mL/hrINTRAVENOUS CONTINUOUSmorphine HOSE WRAPPER 1 mg/mL in NaCl 0.9% 100 mL INTRAVENOUS CONTINUOUSmorphine 1 mg/mL HOSE WRAPPER CLINICIAN DOSE 1 mg 1 mg INTRAVENOUS [...] lb 6.4 oz) SpO2 96% BMI 26.72 kg/h3Lpnaec/Output Summary (Last 24 hours) at 01/11/17 0755Last data filed at 01/11/17 0613 Gross per 24 hourIntake 3468 mlOutput 1135 mlNet 2333 mlGeneral Appearance: Well appearing, alert, in no acute distress,well-hydrated, well nourished.Abdomen: soft, non-distended, decreased tenderness in LLQIncision C/D/IDrain: serosanguinousCBC, BMP, MG, PHOSRecent Labs 01/11/1704WBC 2.75* 5.33 13.84* 10.34 < > 7.41HB [...] not displayed.Liver Function, Amylase, AND LipaseRecent Labs 08/11/1600925808PWQMO 8.1 6.9 6.1 < > --ALB 4.1 4.0 3.5 < > --ALT 12 51* 46* < > --AST 37 91* 81* < > --ALKPHOS 207* 185* 130 < > --TBILI 0.4 0.4 0.4 < > --LACT -- -- -- -- 1.0< > = values in this interval not displayed.CoagsRecent Labs [id number] 28.1 26.8 27.7INR 1.1 1.1 1.1*A review of daily goals, interventions, and plan of care with themultidisciplinary team and patient has been conducted. The patient?sconcerns have been addressed and he/she agrees to proceed with today?splan of care.Raghu Westbrook MDGeneral Surgery PGY-17:55 AM01/11/2017Green Team Pager: [phone]*Please page Jr. On-Call [phone]) 6pm - 6am and on weekends.Att: NG out. Fullness after eating today - I told her to take it slowly. Abdomen still benign.Some Pancytopenia on labs - could be lab error. Will recheck in AM. Ptclinically stable.Reji Sampson, TREYeptember 2016 3:04 PM Normal [facility] Basic Metabolic Panlon 01-10 Anion gap 12 mmol/L Normal 9-18 [facility] Comment on above: Performed By: #### CBC, BMP, MG1 ####[place] [id number] [place] [phone] Calcium 7.8 mg/dL Low 8.5-10.5 [facility] Comment on above: Performed By: #### CBC, BMP, MG1 ####[place] [address] [place] [phone] Chloride 104 mmol/L Normal 98-110 [facility] Comment on above: Performed By: #### CBC, BMP, MG1 ####[place] [address] [place], [place] [phone] CO2 23 mmol/L Normal 23-32 [facility] Comment on above: Performed By: #### CBC, BMP, MG1 ####[place] [address] Creatinine 0.66 mg/dL Low 0.70-1.40 [facility] Comment on above: Performed By: #### CBC, BMP, MG1 ####[place] [address] eGFR (non-black) mL/min/{1.73_m2} Normal >60 [facility] Comment on above: Performed By: #### CBC, BMP, MG1 ####[place] [address] Glucose mass conc 100 mg/dL Normal 65-100 [facility] Comment on above: Performed By: #### CBC, BMP, MG1 ####[place] [address] Potassium molar conc 3.6 mmol/L Normal 3.5-5.0 [facility] Comment on above: Performed By: #### CBC, BMP, MG1 ####[place] [address] Sodium 139 mmol/L Normal 132-148 [facility] Comment on above: Performed By: #### CBC, BMP, MG1 ####[place] [address] Urea nitrogen 12 mg/dL Normal 8-25 [facility] Comment on above: Performed By: #### CBC, BMP, MG1 ####[place] [address] CBCon 01-10-2017 Erythrocyte distribution width Auto Ratio (RBC) 12.5 % Normal 11.5-15.0 [facility] Comment on above: Performed By: #### CBC, BMP, MG1 ####[place] [address] Erythrocytes (RBC) 3.23 10*6/uL Low 3.90-5.20 [facility] Comment on above: Performed By: #### CBC BMP, MG1 ####[address] Hematocrit (HCT) 32.3 % Low 36.0-46.0 [facility] Comment on above: Performed By: #### CBC BMP, MG1 ####[place] [address] Hemoglobin mass conc (Bld) 10.3 g/dL Low 11.5-15.5 [facility] Comment on above: Performed By: #### RITA GRUBBS, MG1 ####[address] MCH 31.9 pG Normal 26.0-34.0 [facility] Comment on above: Performed By: #### RITA GRUBBS, MG1 ####[address] MCHC mass conc (RBC) 31.9 g/dL Normal 30.5-36.0 [facility] Comment on above: Performed By: #### RITA GRUBBS, MG1 ####[address] MCV 100.0 fL Normal 80.0-100.0 [facility] Comment on above: Performed By: #### CBC BMP, MG1 ####[address] Platelet mean volume (PMV) 11.3 fL Normal 9.0-12.7 [facility] Comment on above: Performed By: #### CBC BMP, MG1 ####[address] Platelets 113 10*3/uL Low 150-400 [facility] Comment on above: Performed By: #### CBC BMP, MG1 ####[phone] WBC (Leukocytes) 5.33 10*3/uL Normal 3.70-11.00 [facility] Comment on above: Performed By: #### RITA GRUBBS, MG1 ####[place] [address] [place], [place] [phone] Magnesiumon 01-10-2017 Magnesium 1.9 mg/dL Normal 1.7-2.6 [facility] Comment on above: Performed By: #### RITA GRUBBS, MG1 ####[place] [address] [place], [place] [phone] NURSING PROGon 01-10-2017 NURSING PROG HNO ID: [id number] thor: Julia (Rn) Elva Serraice: (none)Author Type: Registered NurseType: Nursing Progress NoteFiled: 01/10/2017 5:25 PMNote Text: Nursing Progress NotePatient Name: Sofie Donald LaurenN: [id number] Location: [place] [address] Da dominique Note:1700: Removed NG tube per physician order. Patient tolerated procedurewell. Ice water was provided to patient post-removal and she toleratedwell.This note was completed by: Julia Serra RN [facility] NURSING PROG HNO ID: [id number] thor: Mariluz RennerRn) Elva Schaferice: (none)Author Type: Registered NurseType: Nursing Progress NoteFiled: 01/10/2017 1:28 PMNote Text: Nursing Progress NotePatient Name: Sofie Donald LaurenN: [id number] [address]: [id number] [place] Note: No acute issues this shift. Pt. up in chair. Ambulated inhall with walker and 1 staff assist. HOSE WRAPPER morphine maintaining paincontrol. NGT to LCWS draining scant amount of bilious fluid.BS-hypoactive. IS use encouraged. Call light within reach. NPO exeptsmeds. Will continue to monitor.This note was completed by: Mariluz Schafer RN [facility] PROGRESSon 01-10-2017 PROGRESS HNO ID: [id number] thor: Reji Wheatleye: General SurgeryAuthor Type: PhysicianType: Progress NotesFiled: 01/10/2017 5:59 PMNote Text: SURGERY INPATIENT PROGRESS NOTEName: Sofie Donald JakeMRN: [id number] and Plan:61 year old female with SBO and strangulated internal hernia POD 1 s/plaparoscopic lysis of adhesions, doing well- Pain control: tylenol, morphine HOSE WRAPPER- FEN/GI: NPO, NGT- ID: On Abx Zosyn- DC Trujillo today- VTE Prophylaxis: SQH, SCDs- Routine surgical care: IS, OOB- Dispo: RNFS: Resting well. No acute issues overnight. BM-, Flatus-. Pain -. N-.Denies SoB/CP.O:Current hospital medications:phenol 1 [place] (CHLORASEPTIC) 1 [place] MUCOUS MEMBRANE (TOPICAL MOUTH ANDTHROAT) q 2 H PRNmorphine HOSE WRAPPER 1 mg/mL in NaCl 0.9% 100 mL INTRAVENOUS CONTINUOUSmorphine 1 mg/mL HOSE WRAPPER CLINICIAN DOSE 1 mg 1 mg INTRAVENOUS [...] lb 6.4 oz) SpO2 98% BMI 26.72 kg/z3Ezsgne/Output Summary (Last 24 hours) at 01/10/17 1006Last data filed at 01/10/17 0900 Gross per 24 hourIntake 3690 mlOutput 1550 mlNet 2140 mlGeneral Appearance: Well appearing, alert, in no acute distress,well-hydrated, well nourished.Abdomen: soft, appropriately tenderIncision C/D/IDrain: serosanguinousCBC, BMP, MG, PHOSRecent Labs 01/09/1706143WBC 5.33 13.84* 10.34 < > 7.41HB 10.3* [...] displayed.Liver Function, Amylase, AND LipaseRecent Labs 144 [id number] 8.1 6.9 6.1 < > --ALB 4.1 4.0 3.5 < > --ALT 12 51* 46* < > --AST 37 91* 81* < > --ALKPHOS 207* 185* 130 < > --TBILI 0.4 0.4 0.4 < > --LACT -- -- -- -- 1.0< > = values in this interval not displayed.CoagsRecent Labs 01/09/1706APTT 28.1 26.8 27.7INR 1.1 1.1 1.1*A review of daily goals, interventions, and plan of care with themultidisciplinary team and patient has been conducted. The patient?sconcerns have been addressed and he/she agrees to proceed with today?splan of care.Raghu Westbrook MDGeneral Surgery PGY-110:06 AM01/10/2017Green Team Pager: [phone]*Please page Jr. On-Call ([phone]) 6pm - 6am and on weekends.Att: As above. Pt seen at 1000 today. Minimal pain, and abdomen benign. NG output decreasing; will consider clamp trial later vs DC of NGtomorrow AM.TREY العليept2016 5:59 PM Normal [facility] Toxicology Screen,Uron 01-10 Amphetamines, Urine Negative Normal Negative [facility] Comment on above: Result Comment: Cutoff threshold at 1000 ng/mL.Detection of any drug(s) is presumptive only. For confirmation by alternative methods contact the Laboratory within 5 days. For medical purposes only. Documented cross-reactivities (false positives) on file in Laboratory. Performed By: #### U TOX2 ####[facility] [place], [place] [phone] Barbiturates, Urine Negative Normal Negative [facility] Comment on above: Result Comment: Cutoff threshold at 200 ng/mL.Detection of any drug(s) is presumptive only. For confirmation by alternative methods contact the Laboratory within 5 days. For medical purposes only. Documented cross-reactivities (false positives) on file in Laboratory. Performed By: #### U TOX2 ####[place] [phone] Benzodiazepines , Ur Positive Critically abnormal Negative [facility] Comment on above: Result Comment: Cutoff threshold at 200 ng/mL.Detection of any drug(s) is presumptive only. For confirmation by alternative methods contact the Laboratory within 5 days. For medical purposes only. Documented cross-reactivities (false positives) on file in Laboratory. Performed By: #### U TOX2 ####[place] [phone] Cannabinoids, Urine Negative Normal Negative [facility] Comment on above: Result Comment: Cutoff threshold at 50 n g/mL.Detection of any drug(s) is presumptive only. For confirmation by alternative methods contact the Laboratory within 5 days. For medical purposes only. Documented cross-reactivities (false positives) on file in Laboratory. Performed By: #### U TOX2 ####[place] [phone] Cocaine, Urine Negative Normal Negative [facility] Comment on above: Result Comment: Cutoff threshold at 300 ng/mL.Detection of any drug(s) is presumptive only. For confirmation by alternative methods contact the Laboratory within 5 days. For medical purposes only. Documented cross-reactivities (false positives) on file in Laboratory. Performed By: #### U TOX2 ####[place] [phone] Ethanol, Urine <11 Normal <11 [facility] Comment on above: Performed By: #### UTOX2 ####[facility] [address] [place], [place] [phone] Opiates, Urine Positive Critically abnormal Negative [facility] Comment on above: Result Comment: Cutoff threshold at 300 ng/mL.Detection of any drug(s) is presumptive only. For confirmation by alternative methods contact the Laboratory within 5 days. For medical purposes only. Documented cross-reactivities (false positives) on file in Laboratory. Performed By: #### U TOX2 ####[place] [phone] Oxycodone, Urine Negative Normal Negative [facility] Comment on above: Result Comment: Cutoff threshold at 100 ng/mL.Detection of any drug(s) is presumptive only. For confirmation by alternative methods contact the Laboratory within 5 days. For medical purposes only. Documented cross-reactivities (false positives) on file in Laboratory. Performed By: #### U TOX2 ####[place] [phone] Phencyclidine, Urine Negative Normal Negative [facility] Comment on above: Result Comment: Cutoff threshold at 25 n g/mL.Detection of any drug(s) is presumptive only. For confirmation by alternative methods contact the Laboratory within 5 days. For medical purposes only. Documented cross-reactivities (false positives) on file in Laboratory. Performed By: #### U TOX2 ####[place] [phone] ANES PREOPon 01-09-2017 ANES PREOP HNO ID: [id number] thor: Joe ZafareService: AnesthesiologyAuthor Type: AnesthesiologistType: Anesthesia PreOpFiled: 01/09/2017 11:54 AMNote Text:REGIONAL ANESTHESIOLOGY DAY OF SURGERY NOTEPATIENT NAME: Sofie AdrianMRN: [id number]: 1955Procedure(s) (LRB):EXPLORATORY LAPAROTOMY ADULT (N/A)LAPAROSCOPY DIAGNOSTIC (N/A)Surgeon(s):Adis [...] 01/09/2017PT INR 1.1 01/09/2017Creatinine 0.58 01/09/2017EKG:sinus tachycardiaVitals: 01/10/17042 01/09/1711BP: 122/72 146/78 140/73 119/75Pulse: 108 111 [...] medical management- COPD (chronic obstructive pulmonary disease) ([facility]) mild obstruction on PFT's 09/2013- Former smoker [...] otherwise documented in primary service progress notes: [facility] updated information obtained within 48 hours ofSurgery/Procedure.SIGNATURE: Joe Aguilar MD PATIENT NAME: Sofie AdrainDATE: January 09, 2017 : 11:50 AM PAGER/CONTACT #: Normal [facility] APTTon 01-09-2017 aPTT 28.1 s Normal 23.0-32.4 [facility] Comment on above: Result Comment: Unfractionated Heparin [...] laboratory APTT reagent in use throughout the [facility]. Performed By: #### P T, PTT ####[facility] [place], [place] [phone] aPTT 26.8 s Normal 23.0-32.4 [facility] Comment on above: Result Comment: Unfractionated Heparin [...] laboratory APTT reagent in use throughout the [facility]. Performed By: #### C BC, PT, PTT, BMP, MG1, PHOS ####[facility] [place], [place] [phone] aPTT 27.7 s Normal 23.0-32.4 [facility] Comment on above: Result Comment: Unfractionated Heparin [...] laboratory APTT reagent in use throughout the [facility]. Performed By: #### C BC, PT, PTT, BMP, MG1, PHOS ####[place] [id number] [place], [place] [phone] BRIEF OP NOTon 01-09-2017 BRIEF OP NOT HNO ID: [id number] thor: Tanner Laneervice: General SurgeryAuthor Type: ResidentType: Brief Op NoteFiled: 01/09/2017 2:26 PMNote Text:BRIEF OPERATIVE / PROCEDURE NOTELOG ID: [id number]/Procedure Date: 01/09/2017Incision/Procedure Start Time: 12:48 PMIncision Close/Procedure End Time: 2:08 PMSurgeon(s)/Proceduralist(s) and Advertisement Compositor(s):Surgeon(s) and Role:Panel 1: * Adis Landeros - Primary * Tanner Ordoñez - Resident - AssistingPanel 2: * Adis Landeros - PrimaryProcedure(s):Laparoscop ic lysis of adhesionsAnesthesia: GeneralFindings: strangulated internal hernia caused by interloop adhesions,bowel appeared hemorrhagic but viable, doppler performed with strongsignalsEstimated Blood Loss: 10 ccSpecimens: NoneDrains: 19 Fr round drain in LLQWound Classification: Class 1, operative wound clean, non-traumatic, withno inflammation encountered, no break in technique, gastrointestinal andgenitor-urinary tracts not enteredPre-Op/Pre-Procedure Diagnosis: Small bowel obstructionPost-Op/Post-Proced ure Diagnosis: Small bowel obstruction, internal herniaSIGNATURE: Tanner Ordoñez MD PATIENT NAME: Sofie AdrianDATE: January 09, 2017 : 2:24 PM PHONE: [phone] Normal [facility] Basic Metabolic Panlon 01-09 Anion gap 18 mmol/L Normal 9-18 [facility] Comment on above: Performed By: #### CBC, PT, PTT, BMP, MG 1, PHOS ####[place] [phone] Calcium 8.6 mg/dL Normal 8.5-10.5 [facility] Comment on above: Performed By: #### CBC, PT, PTT, BMP, MG 1, PHOS ####[place] [phone] Chloride 102 mmol/L Normal 98-110 [facility] Comment on above: Performed By: #### CBC, PT, PTT, BMP, MG 1, PHOS ####[place] [phone] CO2 18 mmol/L Low 23-32 [facility] Comment on above: Performed By: #### CBC, PT, PTT, BMP, MG 1, PHOS ####[place] [phone] Creatinine 0.58 mg/dL Low 0.70-1.40 [facility] Comment on above: Performed By: #### CBC, PT, PTT, BMP, MG 1, PHOS ####[place] [phone] eGFR (non-black) mL/min/{1.73_m2} Normal >60 [facility] Comment on above: Performed By: #### CBC, PT, PTT, BMP, MG 1, PHOS ####[place] [phone] Glucose mass conc 171 mg/dL High 65-100 [facility] Comment on above: Performed By: #### CBC, PT, PTT, BMP, MG 1, PHOS ####[place] [phone] Potassium molar conc 3.8 mmol/L Normal 3.5-5.0 [facility] Comment on above: Performed By: #### CBC, PT, PTT, BMP, MG 1, PHOS ####[place] [address] Sodium 138 mmol/L Normal 132-148 [facility] Comment on above: Performed By: #### CBC, PT, PTT, BMP, MG 1, PHOS ####[place] [address] Urea nitrogen 12 mg/dL Normal 8-25 [facility] Comment on above: Performed By: #### CBC, PT, PTT, BMP, MG 1, PHOS ####[place] [address] Anion gap 16 mmol/L Normal 9-18 [facility] Comment on above: Performed By: #### CBC, PT, PTT, BMP, MG 1, PHOS ####[place] [address] Calcium 8.8 mg/dL Normal 8.5-10.5 [facility] Comment on above: Performed By: #### CBC, PT, PTT, BMP, MG 1, PHOS ####[place] [address] Chloride 100 mmol/L Normal 98-110 [facility] Comment on above: Performed By: #### CBC, PT, PTT, BMP, MG 1, PHOS ####[place] [address] CO2 20 mmol/L Low 23-32 [facility] Comment on above: Performed By: #### CBC, PT, PTT, BMP, MG 1, PHOS ####[place] [address] Creatinine 0.54 mg/dL Low 0.70-1.40 [facility] Comment on above: Performed By: #### CBC, PT, PTT, BMP, MG 1, PHOS ####[place] [address] eGFR (non-black) mL/min/{1.73_m2} Normal >60 [facility] Comment on above: Performed By: #### CBC, PT, PTT, BMP, MG 1, PHOS ####[place] [phone] Glucose mass conc 159 mg/dL High 65-100 [facility] Comment on above: Performed By: #### CBC, PT, PTT, BMP, MG 1, PHOS ####[place] [phone] Potassium molar conc 3.8 mmol/L Normal 3.5-5.0 [facility] Comment on above: Performed By: #### CBC, PT, PTT, BMP, MG 1, PHOS ####[place] [address] Sodium 136 mmol/L Normal 132-148 [facility] Comment on above: Performed By: #### CBC, PT, PTT, BMP, MG 1, PHOS ####[place] [phone] Urea nitrogen 13 mg/dL Normal 8-25 [facility] Comment on above: Performed By: #### CBC, PT, PTT, BMP, MG 1, PHOS ####[place] [phone] CASE MANAGEMon 01-09-2017 CASE MANAGEM HNO ID: [id number] thor: Kathryn Coley (Lsw)rvice: Care ManagementAuthor Type: Social WorkerType: Care Mgt Progress NoteFiled: 01/09/2017 3:10 PMNote Text:CARE MANAGEMENT PROGRESS NOTESERVICE DATE: 01/09/2017SERVICE TIME: 3:00 PM LOS: 1 dayNeeds Prior to Discharge: To Be Determined;Other: See Comment ([facility]. Pt currently at surgery. CM willtry again another time. )SIGNATURE: NYASIA Higgins PATIENT NAME: Sofie AdrianDATE: January 09, 2017 : 3:10 PM PAGER/CONTACT #: [phone] [facility] CBCon 01-09-2017 Erythrocyte distribution width Auto Ratio (RBC) 12.4 % Normal 11.5-15.0 [facility] Comment on above: Performed By: #### CBC, PT, PTT, BMP, MG 1, PHOS ####[place] [address] Erythrocytes (RBC) 3.82 10*6/uL Low 3.90-5.20 [facility] Comment on above: Performed By: #### CBC, PT, PTT, BMP, MG 1, PHOS ####[place] [address] Hematocrit (HCT) 37.2 % Normal 36.0-46.0 [facility] Comment on above: Performed By: #### CBC, PT, PTT, BMP, MG 1, PHOS ####[place] [address] Hemoglobin mass conc (Bld) 12.3 g/dL Normal 11.5-15.5 [facility] Comment on above: Performed By: #### CBC, PT, PTT, BMP, MG 1, PHOS ####[place] [address] MCH 32.2 pG Normal 26.0-34.0 [facility] Comment on above: Performed By: #### CBC, PT, PTT, BMP, MG 1, PHOS ####[place] [address] MCHC mass conc (RBC) 33.1 g/dL Normal 30.5-36.0 [facility] Comment on above: Performed By: #### CBC, PT, PTT, BMP, MG 1, PHOS ####[place] [address] MCV 97.4 fL Normal 80.0-100.0 [facility] Comment on above: Performed By: #### CBC, PT, PTT, BMP, MG 1, PHOS ####[place] [address] Platelet mean volume (PMV) 11.0 fL Normal 9.0-12.7 [facility] Comment on above: Performed By: #### CBC, PT, PTT, BMP, MG 1, PHOS ####[place] [address] Platelets 180 10*3/uL Normal 150-400 [facility] Comment on above: Performed By: #### CBC, PT, PTT, BMP, MG 1, PHOS ####[place] [address] WBC (Leukocytes) 13.84 10*3/uL High 3.70-11.00 [facility] Comment on above: Performed By: #### CBC, PT, PTT, BMP, MG 1, PHOS ####[place] [address] Erythrocyte distribution width Auto Ratio (RBC) 12.7 % Normal 11.5-15.0 [facility] Comment on above: Performed By: #### CBC, PT, PTT, BMP, MG 1, PHOS ####[place] [phone] Erythrocytes (RBC) 3.80 10*6/uL Low 3.90-5.20 [facility] Comment on above: Performed By: #### CBC, PT, PTT, BMP, MG 1, PHOS ####[place] [phone] Hematocrit (HCT) 36.7 % Normal 36.0-46.0 [facility] Comment on above: Performed By: #### CBC, PT, PTT, BMP, MG 1, PHOS ####[place] [phone] Hemoglobin mass conc (Bld) 12.4 g/dL Normal 11.5-15.5 [facility] Comment on above: Performed By: #### CBC, PT, PTT, BMP, MG 1, PHOS ####[place] [id number] MCH 32.6 pG Normal 26.0-34.0 [facility] Comment on above: Performed By: #### CBC, PT, PTT, BMP, MG 1, PHOS ####[place] [address] MCHC mass conc (RBC) 33.8 g/dL Normal 30.5-36.0 [facility] Comment on above: Performed By: #### CBC, PT, PTT, BMP, MG 1, PHOS ####[place] [address] MCV 96.6 fL Normal 80.0-100.0 [facility] Comment on above: Performed By: #### CBC, PT, PTT, BMP, MG 1, PHOS ####[place] [address] Platelet mean volume (PMV) 11.1 fL Normal 9.0-12.7 [facility] Comment on above: Performed By: #### CBC, PT, PTT, BMP, MG 1, PHOS ####[place] [address] Platelets 186 10*3/uL Normal 150-400 [facility] Comment on above: Performed By: #### CBC, PT, PTT, BMP, MG 1, PHOS ####[address] WBC (Leukocytes) 10.34 10*3/uL Normal 3.70-11.00 [facility] Comment on above: Performed By: #### CBC, PT, PTT, BMP, MG 1, PHOS ####[place] [phone] CONSULTon 01-09-2017 CONSULT HNO ID: [id number] thor: Araceli Gamez (Rn) RAJ Mcneilervice: Wound/OstomyAuthor [...] marked with single usesurgical marker.Assessment/Plan-stoma site marking complete-director of midwifery/staff midwife to monitor daniel and place Tegaderm clear transparent dressingsas needed-Plan per surgical team, will remain available as needed.To contact Wound/Ostomy Care, please call the Wound Care Hotline at [phone] leave a message.SIGNATURE: Araceli Mcneil RN PATIENT NAME: Sofie AdrianDATE: January 09, 2017 : 4:00 PM PAGER/CONTACT #: [phone] [facility] HISTORY PHYSICALon HISTORY PHYSICAL HNO ID: [id number]: TREY Wolfe Reservice: ColorectalAuthor Type: ResidentType: HANDPFiled: [...] by mouth once daily. Disp: Rfl: 09/18/2015 [id number] (PRILOSEC) 40 mg capsule Take 1 capsule by mouth once daily.(Patient taking differently: Take 40 mg by mouth twice daily.) Disp: 30capsule Rfl: 4 09/19/2015 at 0700METOPROLOL TARTRATE ORAL Take 25 mg by mouth. Disp: Rfl: 09/19/2015 [id number] HCl 20 mg tablet Take 40 mg [...] joint pain or swelling, back pain or musclepainHEMATOLOGY/LYMPHOLOG Y: Negative for prolonged bleeding, bruising easily orswollen [...] or skindiscoloration. Good capillary refill., No ulcersNEURO: TEn3Kvoglpf Vitals for the past 24 hrs: BP Temp Temp src Pulse Resp UgK66301/08/17 2301 151/92 36.4 ?C (97.6 ?F) Oral [...] ttp. S.Lactate 1. Concern forSBO.-Admission to [facility]-NPO, NGT-IVF @ 100 ml/hr-strict I AND O-Pain meds: tylenol and morphine-Zofran available PRN-KUB stat to confirm NGT placement-Lab, type and screen, stat-DVT prophylaxis: SCD and SQHSIGNATURE: Eloise Langley MD PATIENT NAME: Sofie AdrianDATE: January 08, 2017 : 11:15 PM PAGER/CONTACT #: [phone] Normal [facility] Magnesiumon 01-09-2017 Magnesium 1.7 mg/dL Normal 1.7-2.6 [facility] Comment on above: Performed By: #### CBC, PT, PTT, BMP, MG 1, PHOS ####[place] [id number] [place], [place] [phone] Magnesium 1.9 mg/dL Normal 1.7-2.6 [facility] Comment on above: Performed By: #### CBC, PT, PTT, BMP, MG 1, PHOS ####[address] [phone] NURSING PROGon 01-09-2017 NURSING PROG HNO ID: [id number] thor: Rosi (Rn) Aurelio, RNService: (none)Author Type: Registered NurseType: Nursing Progress NoteFiled: 01/09/2017 10:16 AMNote Text: Nursing Progress NotePatient Name: Sofie AdrianMRN: [id number] Location: [facility]3B21/VG-KM0V-26 Da dominique Note:pt is axox3, on room air, up with assist. Ng tube in place.Plan for surgery today. No needs voiced at this time. Will continue tomonitor the patient. Updated daughter on patient's status, ok'd bypatient.1016 PK3B, Adrian. Updated [employer] medication list and also c/o indigestion.Thanks. Rosi, KADEN [id number] note was completed by: Rosi Carey RN [facility] NURSING PROG HNO ID: [id number] thor: Melissa RennerRn) Elva Pondice: (none)Author Type: Registered NurseType: Nursing Progress NoteFiled: 01/09/2017 5:07 AMNote Text: Nursing Progress NotePatient Name: Sofie AdrianMRN: [id number] Location: [facility]-RT0U-65 0400 Patient complaining of abdominal pain 02/03 moaning at intervalsand holding her stomach. Patient last medicated with Dilaudid 0.5 mg [id number]. Patient states it doesn't last very long. Text message sent toSurgical resident to notify.0415 Patient medicated with oxycodone 5 mg tablet as instructed bysurgical resident. NG clamped when patient took tablet.0515 NG reconnected to low suction. Patient states the Oxycodone noteffective for pain.This note was completed by: Melissa Pond RN [facility] NURSING PROG HNO ID: [id number] thor: Melissa Saucedo (Rn) Elva Pondice: (none)Author Type: Registered NurseType: Nursing Progress NoteFiled: 01/08/2017 11:01 PMNote Text: Nursing Progress NotePatient Name: Sofie AdrianMRN: [id number] Location: [address]/NB-AM9W-29 Tr ansfer Note:Patient transferred into room/unit 321 from [facility] in stablecondition. Actions taken: No futher actions taken at this time. Willcontinue to monitor and check with patient. Call placed to surgicalresident for orders.This note was completed by: Melissa Pond RN Normal [facility] OPERATIVE NOon 01-09-2017 OPERATIVE NO HNO ID: [id number] thor: Adis LanderosService: General SurgeryAuthor Type: PhysicianType: Operative ReportFiled: 01/12/2017 2:34 PMNote Text:[facility] - Operative ReportSOFIE ADRIAN CDOB: 1955 AGE: 61 SEX: FMRN: [id number] ACCTNUM: [id number] SV: [facility] LOCATION: [id number] PHYSICIAN: Adis Landeros M.D.DATE OF PROCEDURE: 01/09/2017PREOPERATIVE DIAGNOSIS: Small bowel obstruction.POSTOPERATIVE DIAGNOSIS: Same. Strangulated internal hernia.NAME OF OPERATION: Diagnostic laparoscopy and lysis of adhesions.SURGEON: Adis Landeros M.D.POLYSILICON PREPARATION WORKER: Tanner Ordoñez M.D.ANESTHESIA: General.ESTIMATED BLOOD LOSS: Minimal.COMPLICATIONS: [...] probe into the abdominal cavity through the Emmanuel port, andunder direct visualization, we probed the [...] we placed a drain in the pelvis, u70-Yqcoht drain made to mature through the lower 5-mm port on the rightside of the abdomen. The drain was secured to the skin using 3-0nylon, and the subumbilical fascia was approximated oufolhxebaf-yf-reugg 0 Polysorb suture. All port sites were [...] was presentthrough the entire operation.Adis Landeros M.D.General SurgeryDA:[id number]: 01/09/2017 15:07:23T: 01/10/2017 01:35:34Job #: [id number] [facility] PROGRESSon 01-09-2017 Cholesterol HNO ID: [id number] thor: Tanner (Mihaela) Sharmilaice: General SurgeryAuthor Type: ResidentType: Progress NotesFiled: 01/09/2017 6:52 PMNote Text:Post-operative checkSubjective: No acute events. Pain controlled. No nausea/vomiting.Objective:Bloo d pressure 112/66, pulse 90, temperature 36.9 ?C (98.4 ?F),temperature source Oral, resp. rate 17, height 154.9 cm (5' 1 ), inntmn89.1 kg (141 lb 6.4 oz), SpO2 97 %.General: NAD, alert, orientedLungs: nonlabored breathingAbdomen: soft, nondistended, periincisional and left sided tenderness,incisions C/D/IExtremities: warm, well perfusedAssessment and plan:61 year old female with SBO and strangulated internal hernia s/plaparoscopic lysis of adhesions. Doing well- NPO with IV fluids- NG to LIWS- Morphine HOSE WRAPPER, tylenol for pain- SCD's and SQH for DVT prophylaxis- Encourage incentive spirometry and ambulationTanner Ordoñez MDGenefirelands regional medical center south [facility] Surgery ResidentPager [phone] [facility] PROGRESS HNO ID: [id number] thor: Adis LanderosService: ColorectalAuthor Type: PhysicianType: Progress NotesFiled: 01/09/2017 12:21 PMNote Text:Sofie [id number] SERVICE: Teresa Saucedo ValenteSUBJECTIVEPatient is in a lot of pain, writhing in her bedNG in place, with moderately thick outputNo flatus no BMOBJECTIVEI/O:Date 01/08/17 07 - 01/09/17 0659 01/09/17 07 - 01/10/17 0659Shift 3044-9520 3310-9101 6412-3245 24 Hour Total 0544-6776 4994-55954150-4270 24 Hour TotalINTAKE IV 524 524 NS [...] lb 6.4 oz) SpO2 94% BMI 26.72 kg/s7OHBUVQE: Alert, no distress, cooperativeLUNGS: Lungs clear to auscultation, Good diaphragmatic excursionCARDIAC: Normal S1 and S2; no rubs, murmurs, or gallopsABDOMEN: Abdomen soft, moderately distended, diffusely tender with MPT inLLQ, BS increased, No masses or organomegaly, NG tube with bileous outputEXTREMITIES: Extremities normal, no deformities, edema, clubbing or skindiscoloration.NEURO: HWx3Ykdt:Current Facility-Administered Medications:piperacillin-tazob actam 3.375 g in dextrose (iso-osmotic) 50 mL (ZOSYN)3.375 g INTRAVENOUS q 6 H Bessie S (Pa) Miglionicomorphine HOSE WRAPPER 1 mg/mL in NaCl 0.9% 100 mL INTRAVENOUS CONTINUOUS Bessie S(Pa) Miglionicomorphine 1 mg/mL HOSE WRAPPER CLINICIAN DOSE 1 mg 1 mg INTRAVENOUS q 6 H PRNMelissa S (Pa) MiglionicoFLUoxetine 40 mg cap(s) (PROzac) 40 mg ORAL DAILY Sahned (Res) MD Korin40 mg at 01/09/17 0757NaCl 0.9% iv infusion 125 mL/hr INTRAVENOUS CONTINUOUS Bessie S (Pa)Miglionico Last Rate: 125 mL/hr at 01/09/17 075 125 mL/hr at [id number] 4 mg tab(s) (ZOFRAN) 4 mg ORAL [...] 01/09/17 0757Labs:CBC, Coags, BMP, Mg, PhosRecent Labs 01/08/1723WBC 13.84* 10.34HB 12.3 12.4HCT 37.2 36.7PLT 180 [...] Diet : NPO- Pain management: Start Morphine HOSE WRAPPER, Tylenol- Nausea management: Zofran- DVT prophylaxis: Heparin- Trujillo status: Please place trujillo for better hemodynamic monitoring- Encourage IS and ambulation- Strict IANDOs- Seen and discussed with senior resident, will discuss with staffAkhil Weathers MD MPHPGY1, Department of General SurgeryPager: [facility]2016 9:12 AMSurgery attendingI have seen and examined [...] related to surgeryand/or anesthesia.Adis Landeros, Evan Landeros, [facility]2016 12:20 PM Normal [facility] Phosphoruson 01-09-2017 Phosphate 3.0 mg/dL Normal 2.5-4.5 [facility] Comment on above: Performed By: #### CBC, PT, PTT, BMP, MG 1, PHOS ####[place] [id number] [place], [place] [phone] Phosphate 3.9 mg/dL Normal 2.5-4.5 [facility] Comment on above: Performed By: #### CBC, PT, PTT, BMP, MG 1, PHOS ####[address] [phone] Protimeon 01-09-2017 INR Coag RelTime (Bld) 1.1 {INR} Normal 0.9-1.3 [facility] Comment on above: Result Comment: Vitamin K Antagonist (VK A) Therapeutic Range: INR 2 to 3 (Target INR of 2.5)Note: For patients treated with VKA drugs, such as warfarin, the [employer] [employer] 2012 Guideline recommends [...] al. Chest 2012, 141:7S-47SNadeen LIU et al. [facility] 2017, 70: 252-289 Performed By: #### P T, PTT ####[place] [id number] [place], [place] [phone] PT Sec 11.6 sec Normal 9.7-13.0 [facility] Comment on above: Performed By: #### PT, PTT ####[address] [phone] INR Coag RelTime (Bld) 1.1 {INR} Normal 0.9-1.3 [facility] Comment on above: Result Comment: Vitamin K Antagonist (VK A) Therapeutic Range: INR 2 to 3 (Target INR of 2.5)Note: For patients treated with VKA drugs, such as warfarin, the [place] [employer] 2012 Guideline recommends [...] of 3).Dinesh LOVE et al. Chest 2012, 141:7S-47SNishmarielena LIU, et al. [facility] 2017, 70: 252-289 Performed By: #### C BC, PT, PTT, BMP, MG1, PHOS ####[place] [address] [place], [place] [phone] PT Sec 11.4 sec Normal 9.7-13.0 [facility] Comment on above: Performed By: #### CBC, PT, PTT, BMP, MG 1, PHOS ####[place] [address] [place], [place] [phone] INR Coag RelTime (Bld) 1.1 {INR} Normal 0.9-1.3 [facility] Comment on above: Result Comment: Vitamin K Antagonist (VK A) Therapeutic Range: INR 2 to 3 (Target INR of 2.5)Note: For patients treated with VKA drugs, such as warfarin, the [place] [employer] 2012 Guideline recommends [...] of 3).Dinesh LOVE, et al. Chest 2012, 141:7S-47SNishmarielena LIU, et al. [facility] 2017, 70: 252-289 Performed By: #### C BC, PT, PTT, BMP, MG1, PHOS ####[place] [address] [place], [place] [phone] PT Sec 11.1 sec Normal 9.7-13.0 [facility] Comment on above: Performed By: #### CBC, PT, PTT, BMP, MG 1, PHOS ####[place] [address] [place], [place] [phone] Type and Screenon 01-09-2017 ABO/RH(D) Negative [facility] Comment on above: Performed By: #### TSCR ####[facility] [id number] [place] [address] Antibody Screen Negative [facility] Comment on above: Performed By: #### TSCR ####[facility] [id number] [place] [address] Urinalysis with Microscopico n 01-09-2017 Bilirubin, Urine Negative Normal Negative [facility] Comment on above: Performed By: #### UAWMIC ####[facility] [id number] [place] [address] Comments SEE COMMENT Normal [facility] Comment on above: Result Comment: Microscopic Examination Performed Performed By: #### U AWMIC ####[place] [address] Erythrocytes (RBC) Rare Critically abnormal Negative [facility] Comment on above: Performed By: #### UAWMIC ####[facility] ucxtver30850 [place] [address] Hemoglobin mass conc (Bld) Negative Normal [facility] Comment on above: Performed By: #### UAWMIC ####[facility] [id number] [place] [address] Leukest Trace Critically abnormal Negative [facility] Comment on above: Performed By: #### UAWMIC ####[facility] tdtynhh50847 [place] [address] pH of blood 6.0 [pH] Normal 5.0-8.0 [facility] Comment on above: Performed By: #### UAWMIC ####[facility] [id number] [place] [address] Protein, Urine Negative Normal [facility] Comment on above: Performed By: #### UAWMIC ####[facility] lcjldps32957 [place] [address] Specific [place], Ur 1.020 Normal 1.005-1.030 [facility] Comment on above: Result Comment: Result checked and verif ied Performed By: #### U AWMIC ####[facility] [place] [address] Urine, clarity Hazy Critically abnormal Clear [facility] Comment on above: Performed By: #### UAWMIC ####[facility] [id number] [place] [phone] Urine, color Yellow Normal Yellow [facility] Comment on above: Performed By: #### UAWMIC ####[facility] [id number] [place] [address] Urine, epithelial cells in sediment SEE COMMENT Critically abnormal Negative [facility] Comment on above: Result Comment: RareSquamous Epithelial Cells Performed By: #### U AWMIC ####[place] [phone] Urine, glucose presence Negative Normal Negative [facility] Comment on above: Performed By: #### UAWMIC ####[facility] [id number] [place] [phone] Urine, ketones presence Negative Normal Negative [facility] Comment on above: Performed By: #### UAWMIC ####[facility] yjcwfap50712 [place] [phone] Urine, mucus presence in sediment Present Normal [facility] Comment on above: Performed By: #### UAWMIC ####[facility] pltpsaq66884 [place] [phone] Urine, nitrite presence Negative Normal Negative [facility] Comment on above: Performed By: #### UAWMIC ####[facility] zhbsgaq89735 [place] [address] Urine, urobilinogen <2.0 Normal <2.0 [facility] Comment on above: Performed By: #### UAWMIC ####[facility] eicgvis73588 [place] [address] WBC (Leukocytes) 5-10 Critically abnormal Negative [facility] Comment on above: Performed By: #### UAWMIC ####[facility] pvkoxvz71128 [place], [place] [phone] XR ABDOMEN 1V SUPINEon 01-09 XR ABDOMEN [...] loops of small bowel in the upper abdomen.Driver Sales: [employer] Transcribe Date/Time: Jan 09 2017 12:19ADictated by : GLENN MARTINEZ MDThis examination was interpreted and the report reviewed and electronically signed by: GLENN MARTINEZ MD on Jan 09 2017 12:20AM [id number] Normal [facility] XR CHEST 1V FRONTALon 2016 XR CHEST [...] volumes with suggestion of mild left base atelectasis.Driver Sales: [employer]SC[employer] Transcribe Date/Time: Jan 09 2017 6:10ADictated by : SHAAN RADER MDThis examination was interpreted and the report reviewed and electronically signed by: SHAAN RADER MD on Jan 09 2017 6:13AM [id number] [facility] HOSPon 01-08-2017 HOSP Patient:Sofie Adrian CMRN: Height:5' 1 (1.549 m)Weight:141 lb 6.4 oz (64.139 kg)Outpatient Medications as of 01/09/17:amitriptyline (ELAVIL) 25 mg tabletcelecoxib (CELEBREX) 200 mg capsulehydroCHLOROthiazide (HYDRODIURIL, ESIDRIX) 25 mg tabletHYDROcodone-acetaminophe n (NORCO) 5-325 mg per tabletmeloxicam (MOBIC) 15 mg tabletrOPINIRole (REQUIP) 2 mg tabletfebuxostat (ULORIC) 40 mg tabalbuterol HFA (VENTOLIN HFA) 90 mcg/actuation inhaleriv contrast (radiology procedure)enteric contrast (radiology procedure)atorvastatin (LIPITOR) 10 mg tabletCetirizine 10 mg capOmeprazole (PRILOSEC) 40 mg capsuleMETOPROLOL TARTRATE ORALFLUoxetine HCl 20 mg tablettraMADol 50 mg tabletOTC PRODUCTAdmission/Clinic Administered Medications as of 01/09/17:piperacillin-tazobacta m 3.375 g in dextrose (iso-osmotic) 50 mL (ZOSYN)morphine HOSE WRAPPER 1 mg/mL in NaCl 0.9% 100 mLmorphine 1 mg/mL HOSE WRAPPER CLINICIAN DOSE 1 mgFLUoxetine 40 mg cap(s) [...] post surgery [Z98.890]SBO (small bowel obstruction) (HCC) [K56.69]Allergies:PenicillinsS ulfa (Sulfonamide Antibiotics)Date Verified: 01/09/17Lab ValuesLab Value Units Date High LowPOTA* 3.8 mmol/L 01/09/2017 5.0 3.5HEMA* 37.2 % 01/09/2017 46.0 36.0Progress Notes ( PK3B):Melissa Pond, RN, RN 01/08/2017 11:01 PM Signed Nursing Progress NotePatient Name: Sofie AdrianMRN: [id number] Location: [place] [address]/BO-LK9M-00 Tr ansfer Note:Patient transferred into room/unit 321 from [facility] in stablecondition. Actions taken: No futher actions taken at this time. Will continueto monitor and check with patient. Call placed to surgical garment assembler for orders.This note was completed by: Bryan Poon MD, MD 01/09/2017 12:05 AM AddendumHISTORY AND PHYSICAL EXAMINATIONSERVICE [...] or skindiscoloration. Good capillary refill., No ulcersNEURO: CQe6Nxxfmza Vitals for the past 24 hrs: BP Temp Temp src Pulse Resp IyU51301/08/17 2301 151/92 36.4 ?C (97.6 ?F) Oral [...] S.Lactate 1. Concern for SBO.-Admission to [facility]-NPO, NGT-IVF @ 100 ml/hr-strict I AND O-Pain meds: tylenol and morphine-Zofran available PRN-KUB stat to confirm NGT placement-Lab, type and screen, stat-DVT prophylaxis: SCD and SQHSIGNATURE: Eloise Langley MD PATIENT NAME: Sofie AdrianDATE: January 08, 2017 : 11:15 PM PAGER/CONTACT #: [phone] Anibal Pond RN, RN 01/09/2017 5:07 AM Addendum Nursing Progress NotePatient Name: Sofie AdrianMRN: [id number] Location: [place] [address]/WU-[id number]-61 0400 Patient complaining of abdominal pain 10/10 [...] Brielle Landeros MD 01/09/2017 12:21 PM AddendumYayalorena Donald [id number] SERVICE: Teresa HollingsworthSUBJECTIVEPatient is in a lot of pain, writhing in her bedNG in place, with moderately thick outputNo flatus no BMOBJECTIVEI/O:Date 01/08/17 07 - 01/09/17 0659 01/09/17 07 - 01/10/17 0659Shift 6629-8955 0932-2672 4205-8230 24 Hour Total 4610-0412 8777-3132 2300-798557 Hour TotalINTAKE IV 524 524 NS 0.9% [...] lb 6.4 oz) SpO2 94% BMI 26.72 kg/w0KOBRYHK: Alert, no distress, cooperativeLUNGS: Lungs clear to auscultation, Good diaphragmatic excursionCARDIAC: Normal S1 and S2; no rubs, murmurs, or gallopsABDOMEN: Abdomen soft, moderately distended, diffusely tender with MPT in LLQ,BS increased, No masses or organomegaly, NG tube with bileous outputEXTREMITIES: Extremities normal, no deformities, edema, clubbing or skindiscoloration.NEURO: NKb5Xrwr:Current Facility-Administered Medications:piperacillin-tazob actam 3.375 g in dextrose (iso-osmotic) 50 mL (ZOSYN) 3.375 gINTRAVENOUS q 6 H Bessie Mirza (Julián) Miglionicomorphine HOSE WRAPPER 1 mg/mL in NaCl 0.9% 100 mL INTRAVENOUS CONTINUOUS Bessie S (Pa)Miglionicomorphine 1 mg/mL HOSE WRAPPER CLINICIAN DOSE 1 mg 1 mg INTRAVENOUS [...] Diet : NPO- Pain management: Start Morphine HOSE WRAPPER, Tylenol- Nausea management: Zofran- DVT prophylaxis: Heparin- Trujillo status: Please place trujillo for better hemodynamic monitoring- Encourage IS and ambulation- Strict IANDOs- Seen and discussed with senior resident, will discuss with staffAkhil Weathers MD MPHPGY1, Department of General SurgeryPager: [facility] 9:12 AMSurgery attendingI have seen and examined [...] to surgery and/or anesthesia.Adis Landeros, Evan Landeros, [facility]2016 12:20 PMPrevious Debby Carey, RN, RN 01/09/2017 10:16 AM Addendum Nursing Progress NotePatient Name: Sofie Donald JakeMRN: [id number] Location: [place] [address]/JR-CE1W-36 Da dominique Note:pt is axox3, on room air, up with assist. Ng tube in place. Plan forsurgery today. No needs voiced at this time. Will continue to monitor thepatient. Updated daughter on patient's status, ok'd by patient.Jake MURRAY. Updated [employer] medication list and also c/o indigestion.Thanks. KADEN Aranda [id number] note was completed by: EWA Tompkinsrevious Yoan Aguilar MD 01/09/2017 11:54 AM SignedREGIONAL ANESTHESIOLOGY DAY OF SURGERY NOTEPATIENT NAME: Sofie AdrianMRN: [id number]: 1955Procedure(s) (LRB):EXPLORATORY LAPAROTOMY ADULT (N/A)LAPAROSCOPY DIAGNOSTIC (N/A)Surgeon(s):Adis [...] 01/09/2017PT INR 1.1 01/09/2017Creatinine 0.58 01/09/2017EKG:sinus tachycardiaVitals: 01/10/1704BP: 122/72 146/78 140/73 119/75Pulse: 108 111 96 [...] medical management- COPD (chronic obstructive pulmonary disease) ([facility]) mild obstruction on PFT's 09/2013- Former smoker 10 pack years, quit 2003- High cholesterol- History of rheumatic fever- Hypertension- PUD (peptic ulcer disease) 02/2014- Tachycardia- Ulcer ([facility])- VertigoPAST SURGICAL HISTORYProcedure Laterality Date- COLONOSCOPY- LAP [...] Takes 2 PO QDInpatient medications reviewed in [facility].I have interviewed and examined the patient. I have reviewed the medical recordand/or the pre-anesthesia evaluation, pertinent labs, and test results.Significant changes in the patient's condition since the History and Physical,not otherwise documented in primary service progress notes: NoThis contains updated information obtained within 48 hours of Surgery/Procedure.SIGNATURE: Joe Aguilar MD PATIENT NAME: Sofie AdrianDATE: January 09, 2017 : 11:50 AM PAGER/CONTACT #: [facility] OT-XR KUB 1 VIEW IMPORTon OT-XR KUB 1 VIEW IMPORT Images were obtained outside of [facility] [id number] [facility] SR-CT ABD/PELVIS W CON IMPOR Ton 01-08-2017 SR-CT ABD/PELVIS W CON IMPORT Images were obtained outside of [facility] [id number] [facility] SR-CT ABD/PELVIS WO CON IMPO RTon 01-07-2017 SR-CT ABD/PELVIS WO CON IMPORT Images were obtained outside of [facility] [id number] [facility] Vital Signs Date Time Vital Sign Value Performing Clinician Nathalie stone 05-10-2024 15:57-0500 Body height 146.3 cm Rosario Barberhholz ORDER ADMINISTRATOR Work Phone: [facility] 05-10-2024 15:57-0500 Body mass index (BMI) [Ratio] 25.51 kg/m2 Rosario Aichholz ORDER ADMINISTRATOR Work Phone: [facility] 05-10-2024 15:57-0500 Body temperature 98.8 [degF] Rosario Aichholz ORDER ADMINISTRATOR Work Phone: [facility] 05-10-2024 15:57-0500 Body weight 54.61 kg Rosario Aichholz ORDER ADMINISTRATOR Work Phone: [facility] 05-10-2024 15:57-0500 Diastolic blood pressure 78 mm[Hg] Rosario Aichholz ORDER ADMINISTRATOR Work Phone: [facility] 05-10-2024 15:57-0500 Heart rate 84 /min Rosario Barberhholz ORDER ADMINISTRATOR Work Phone: [facility] 05-10-2024 15:57-0500 Respiratory rate 19 /min Rosario Aichholz ORDER ADMINISTRATOR Work Phone: [facility] 05-10-2024 15:57-0500 SaO2% (BldA) [Mass fraction] 98 % Rosario Barberhholz ORDER ADMINISTRATOR Work Phone: [facility] 05-10-2024 15:57-0500 Systolic blood pressure 108 mm[Hg] Rosario Barberhholz ORDER ADMINISTRATOR Work Phone: [facility] 04-05-2024 13:23-0500 Body height 146.3 cm Rosario Aichholz ORDER ADMINISTRATOR Work Phone: [facility] 04-05-2024 13:23-0500 Body mass index (BMI) [Ratio] 25.3 kg/m2 Rosario Aichholz ORDER ADMINISTRATOR Work Phone: [facility] 04-05-2024 13:23-0500 Body temperature 97.59 [degF] Rosario Aichholz ORDER ADMINISTRATOR Work Phone: [facility] 04-05-2024 13:23-0500 Body weight 54.16 kg Rosario Barberhholz ORDER ADMINISTRATOR Work Phone: [facility] 04-05-2024 13:23-0500 Diastolic blood pressure 76 mm[Hg] Rosario Aichholz ORDER ADMINISTRATOR Work Phone: [facility] 04-05-2024 13:23-0500 Heart rate 78 /min Rosario Barberhholz ORDER ADMINISTRATOR Work Phone: [facility] 04-05-2024 13:23-0500 Respiratory rate 18 /min Rosario Aichholz ORDER ADMINISTRATOR Work Phone: [facility] 04-05-2024 13:23-0500 SaO2% (BldA) [Mass fraction] 98 % Rosario Barberhholz ORDER ADMINISTRATOR Work Phone: [facility] 04-05-2024 13:23-0500 Systolic blood pressure 120 mm[Hg] Rosario Aichholz ORDER ADMINISTRATOR Work Phone: [facility] 03-02-2024 14:24-0500 Body height 146.3 cm Rosario Barberhholz ORDER ADMINISTRATOR Work Phone: [facility] 03-02-2024 14:24-0500 Body mass index (BMI) [Ratio] 25.39 kg/m2 Rosario Aichholz ORDER ADMINISTRATOR Work Phone: [facility] 03-02-2024 14:24-0500 Body temperature 98.71 [degF] Rosario Barberhholz ORDER ADMINISTRATOR Work Phone: [facility] 03-02-2024 14:24-0500 Body weight 54.34 kg Rosario Aichholz ORDER ADMINISTRATOR Work Phone: [facility] 03-02-2024 14:24-0500 Diastolic blood pressure 84 mm[Hg] Rosario Aichholz ORDER ADMINISTRATOR Work Phone: [facility] 03-02-2024 14:24-0500 Heart rate 69 /min Rosario Aichholz ORDER ADMINISTRATOR Work Phone: [facility] 03-02-2024 14:24-0500 Respiratory rate 19 /min Rosariocatherine Salcedoholz ORDER ADMINISTRATOR Work Phone: [facility] 03-02-2024 14:24-0500 SaO2% (BldA) [Mass fraction] 98 % Rosario Matiasholz ORDER ADMINISTRATOR Work Phone: [facility] 03-02-2024 14:24-0500 Systolic blood pressure 122 mm[Hg] Rosario Matiasholz ORDER ADMINISTRATOR Work Phone: [facility] 06-11-2023 13:30-0500 Body height 146.3 cm Rosario Matiasholz ORDER ADMINISTRATOR Work Phone: [facility] 06-11-2023 13:30-0500 Body mass index (BMI) [Ratio] 28.9 kg/m2 Rosario Matiasholz ORDER ADMINISTRATOR Work Phone: [facility] 06-11-2023 13:30-0500 Body temperature 97.11 [degF] Rosariocatherine Salcedoholz ORDER ADMINISTRATOR Work Phone: [facility] 06-11-2023 13:30-0500 Body weight 61.87 kg Rosariocatherine Salcedoholz ORDER ADMINISTRATOR Work Phone: [facility] 06-11-2023 13:30-0500 Diastolic blood pressure 78 mm[Hg] Rosario Matiasholz ORDER ADMINISTRATOR Work Phone: [facility] 06-11-2023 13:30-0500 Heart rate 75 /min Rosario Matiasholz ORDER ADMINISTRATOR Work Phone: [facility] 06-11-2023 13:30-0500 Respiratory rate 18 /min Rosario Barberhholz ORDER ADMINISTRATOR Work Phone: [facility] 06-11-2023 13:30-0500 SaO2% (BldA) [Mass fraction] 95 % Rosario Matiasholz ORDER ADMINISTRATOR Work Phone: [facility] 06-11-2023 13:30-0500 Systolic blood pressure 122 mm[Hg] Rosario Bia ORDER ADMINISTRATOR Work Phone: [facility] Encounters Encounter Date Encounter Type Care Provider Facility Start: 05-14-2024 End: 05-15-2024 Refill Rosario Bia ORDER ADMINISTRATOR Work Phone: [facility] Comment on above: Gastroesophageal ref lux disease without esophagitis Start: 05-10-2024 End: 05-10-2024 Office outpatient visit 15 minutes Rosario Bia ORDER ADMINISTRATOR Work Phone: [facility] Comment on above: Viral upper respirat ory tract infection (Primary Dx) Start: 05-10-2024 End: 05-10-2024 ambulatory ROSARIO AICHHOLZ Not Available Start: 05-10-2024 End: 05-10-2024 Bamboo flowsheet Rosario Aichholz ORDER ADMINISTRATOR Work Phone: [facility] Start: 05-10-2024 End: 05-10-2024 Bamboo flowsheet Rosario Aichholz ORDER ADMINISTRATOR Work Phone: [facility] Start: 04-05-2024 End: 04-05-2024 Bamboo flowsheet Rosario Aichholz ORDER ADMINISTRATOR Work Phone: [facility] Start: 04-05-2024 End: 04-05-2024 Bamboo flowsheet Rosario Aichholz ORDER ADMINISTRATOR Work Phone: [facility] Start: 04-05-2024 End: 04-05-2024 Office outpatient visit 25 minutes Rosario Aichholz ORDER ADMINISTRATOR Work Phone: [facility] Comment on above: Pain in both lower e xtremities (Primary Dx); Muscle cramps at night; Vitamin deficiency; Chronic bilateral low back pain without sciatica Start: 04-05-2024 End: 04-05-2024 ambulatory ROSARIO AICHHOLZ Not Available Start: 03-02-2024 End: 03-02-2024 Office outpatient visit 25 minutes Rosario Aichholz ORDER ADMINISTRATOR Work Phone: [facility] Comment on above: Anxiety (Primary Dx) ; Major depressive disorder, single episode, in full remission ([facility]); Overweight (BMI 25.0-29.9); Osteoporosis, post-menopausal ([facility]); Gastroesophageal reflux disease without esophagitis; Heart murmur Start: 03-02-2024 End: 03-02-2024 ambulatory ROSARIO AICHHOLZ Not Available Start: 03-02-2024 End: 03-02-2024 Bamboo flowsheet Rosario Aichholz ORDER ADMINISTRATOR Work Phone: [facility] Start: 03-02-2024 End: 03-02-2024 Bamboo flowsheet Rosario Aichholz ORDER ADMINISTRATOR Work Phone: [facility] Start: 02-13-2024 End: 02-14-2024 Refill Rosario Aichholz ORDER ADMINISTRATOR Work Phone: [facility] Comment on above: Chronic bilateral lo w back pain without sciatica Start: 01-17-2024 End: 01-18-2024 Refill Rosario Aichholz ORDER ADMINISTRATOR Work Phone: [facility] Comment on above: Chronic bilateral lo w back pain without sciatica Start: 01-03-2024 End: 01-04-2024 Refill Rosario Aichholz ORDER ADMINISTRATOR Work Phone: [facility] Comment on above: Anxiety Start: 10-12-2023 End: 10-12-2023 ambulatory ROSARIO AICHHOLZ Not Available Start: 09-02-2023 End: 09-02-2023 ambulatory ROSARIO AICHHOLZ Not Available Start: 06-11-2023 Bamboo flowsheet Rosario Aichholz ORDER ADMINISTRATOR Work Phone: [facility] Start: 06-11-2023 Bamboo flowsheet Rosario Aichholz ORDER ADMINISTRATOR Work Phone: [facility] Start: 06-11-2023 End: 06-11-2023 Patient encounter procedure Rosario Aichholz ORDER ADMINISTRATOR Work Phone: [facility] Comment on above: Medicare annual well ness visit, subsequent (Primary Dx); Benign hypertension (CMS/HCC); Osteoporosis, post-menopausal (CMS/HCC); Anxiety; Gastroesophageal reflux disease without esophagitis; Age related osteoporosis, unspecified pathological fracture presence (CMS/HCC); Chronic bilateral low back pain without sciatica; Mixed hyperlipidemia (CMS/HCC) Start: 06-11-2023 End: 06-11-2023 ambulatory ROSARIO BIA Not Available Start: 07-21-2022 End: 07-22-2022 ambulatory EXCHANGE UNDERWRITING CONSULTANT ROSARIO BARBERHHOLZ Facility:[facility] Start: 02-12-2022 End: 02-12-2022 ambulatory EXCHANGE UNDERWRITING CONSULTANT ROSARIO BARBERHQINGZ Facility:[facility] Start: 01-09-2022 End: 01-10-2022 ambulatory EXCHANGE UNDERWRITING CONSULTANT ROSARIO BARBERHQINGZ Facility:[facility] Start: 01-06-2022 End: 01-07-2022 ambulatory EXCHANGE UNDERWRITING CONSULTANT ROSARIO BARBERHQINGZ Facility:[facility] Start: 12-03-2021 End: 12-04-2021 ambulatory EXCHANGE UNDERWRITING CONSULTANT ROSARIO BIA Facility:[facility] Start: 10-18-2021 End: 10-19-[address] JESSICA SAMPSON Facility:[facility] Start: 09-17-2021 End: 09-18-[address] ISAIAH ROJAS Facility:[facility] Start: 08-06-2021 End: 08-07-2021 ambulatory JOCELINE ORTEGA Facility:[facility] Start: 02-04-2017 Ambulatory NATASHA (ORDER ADMINISTRATOR) [facility] Start: 01-09-2017 End: 01-13-2017 Evaluation and management of inpatient [facility] Procedures Date Procedure Procedure Detail Performing Clinician Start: 05-10-2024 Iaadiadoo influenza Lis a Bia ORDER ADMINISTRATOR Work Phone: Start: 08-21-2023 Mammography Rosario Francisco J beverly ORDER ADMINISTRATOR Work Phone: Start: 07-21-2022 Mammography Rosario Barberhh olz ORDER ADMINISTRATOR Work Phone: Start: 10-20-2021 Antibody screen Comment on above: Order Comment: Speci men Type: BLOOD SPECIMEN Ordering Facility: [facility] Address: [address] [place] [address] Performed By: #### T SCR #### CC [facility] CLIA [id number] [address] [place] [address] Plan of Treatment Date Care Activity Detail Author Start: 08-20-2024 Screening for malignant neoplasm of breast Mammogram [facility] Start: 06-16-2024 End: 06-16-2024 Patient encounter procedure 06/16/2024 10:30 AM EST Office Visit [facility] [address] [place] [address] Rosario Amezquita, ANSELMO [address] [place] [phone] [facility] Start: 06-11-2024 Medicare Annual Wellness (AWV) Medicare Annual Wellness (AWV) [facility] Start: 05-10-2024 End: 05-10-2024 Patient encounter procedure 05/10/2024 4:00 PM EST Office Visit [facility] [address] [place] [address] Rosario Amezquita, ANSELMO [address] [place] [phone] Arrived [facility] Comment on above: Arrived Start: 05-09-2024 End: 05-09-2024 Patient encounter procedure 05/09/2024 1:40 PM EST Office Visit [facility] [address] [place] [address] Rosario Amezquita, ANSELMO [address] [place] [phone] [facility] Start: 04-05-2024 End: 04-05-2025 Cobalamin (Vitamin B12) [Mass/volume] in Serum or Plasma Vitamin B12 Lab Routine Vitamin deficiency Expected: 04/05/2024 (Approximate), Expires: 04/05/2025 [facility] Work Phone: Comment on above: Expected: 04/05/2024 (Approximate), Expires: 04/05/2025 Start: 04-05-2024 End: 04-05-2025 Creatine kinase [Enzymatic activity/volume] in Serum or Plasma CK Lab Routine Muscle cramps at night Expected: 04/05/2024 (Approximate), Expires: 04/05/2025 [facility] Comment on above: Expected: 04/05/2024 (Approximate), Expires: 04/05/2025 Start: 04-05-2024 End: 04-05-2025 Magnesium [Mass/volume] in Serum or Plasma Magnesium Lab Routine Muscle cramps at night Expected: 04/05/2024 (Approximate), Expires: 04/05/2025 [facility] Comment on above: Expected: 04/05/2024 (Approximate), Expires: 04/05/2025 Start: 04-05-2024 End: 04-05-2024 Patient encounter procedure 04/05/2024 1:20 PM EST Office Visit [facility] [address] [place] [address] Rosario Amezquita, ANSELMO [address] [place] [phone] Arrived [facility] Comment on above: Arrived Start: 03-02-2024 End: 03-02-2024 Patient encounter procedure 03/02/2024 2:20 PM EST [facility] [address] [place] [address] Rosario Amezquita, ORDER ADMINISTRATOR [address] [place] [phone] Overweight (BMI 25.0-29.9) (Primary Dx); Major depressive disorder, single episode, in full remission (CMS/HCC); Anxiety; Osteoporosis, post-menopausal (CMS/HCC); Gastroesophageal reflux disease without esophagitis [facility] Comment on above: Overweight (BMI 25.0 -29.9) (Primary Dx); Major depressive disorder, single episode, in full remission ([facility]); Anxiety; Osteoporosis, post-menopausal ([facility]); Gastroesophageal reflux disease without esophagitis Start: 02-29-2024 End: 02-29-2024 Patient encounter procedure 02/29/2024 1:40 PM EST Office Visit [facility] [address] [place] [address] Rosario Amezquita, ANSELMO [address] [place] [phone] [facility] Start: 02-09-2024 End: 02-09-2024 Patient encounter procedure 02/09/2024 1:00 PM EDT Office Visit [facility] [address] [place] [address] Rosario Amezquita NP [address] [place] [phone] [facility] Start: 12-27-2023 Influenza vaccination Influenza Vacc ine (#1) [facility] Start: 10-12-2023 End: 10-12-2023 Patient encounter procedure 10/12/2023 2:00 PM EDT Office Visit [facility] [address] [place] [address] Rosario Amezquita, ANSELMO [address] [place] [id number] [facility] Start: 07-22-2023 Screening for malignant neoplasm of breast Mammogram [facility] Start: 06-11-2023 End: 06-11-2023 Patient encounter procedure 06/11/2023 1:20 PM EST Office Visit [facility] [address] [place] [address] Rosario Amezquita NP [address] [place] [address] Arrived [facility] Comment on above: Arrived Start: 1955 Medicare Annual Wellness (AWV) Medicare Annual Wellness (AWV) [facility] Immunizations Immunization Date Immunization Notes Care Provider Fa cili 02-03-2024 influenza, high dose seasonal, preservative-free Rosario Aichholz ORDER ADMINISTRATOR Work Phone: [facility] 02-03-2024 Pneumococcal Conjuga te PCV 20 Rosario Aichholz ORDER ADMINISTRATOR Work Phone: [facility] 03-18-2023 Influenza, Seasonal, Quadrivalent, Adjuvanted Rosario Aichholz ORDER ADMINISTRATOR Work Phone: [facility] 03-18-2023 influenza virus vacc ine, unspecified formulation Rosario Aichholz ORDER ADMINISTRATOR Work Phone: [facility] 07-28-2022 zoster vaccine recombinant L donya Aichholz ORDER ADMINISTRATOR Work Phone: [facility] 05-28-2022 zoster vaccine recombinant L donya Aichholz ORDER ADMINISTRATOR Work Phone: [facility] 03-25-2021 influenza, injectabl e, quadrivalent, preservative free Rosario Aichholz ORDER ADMINISTRATOR Work Phone: [facility] 02-03-2017 influenza virus vacc ine, unspecified formulation Rosario Aichholz ORDER ADMINISTRATOR Work Phone: [facility] 04-01-2013 influenza, seasonal, injectable Rosario Aichholz ORDER ADMINISTRATOR Work Phone: [facility] 01-25-2013 influenza, seasonal, injectable Rosario Aichholz ORDER ADMINISTRATOR Work Phone: [facility] 01-25-2013 pneumococcal polysaccharide vaccine, 23 valent Rosario Aichholz ORDER ADMINISTRATOR Work Phone: [facility] 01-29-2012 influenza, seasonal, injectable Rosario Aichholz ORDER ADMINISTRATOR Work Phone: [facility] 01-29-2012 pneumococcal polysaccharide vaccine, 23 valent Rosario Amezquita NP Work Phone: [facility] Payers Date Payer Category Payer Medicare [employer] MEDICARE ADVANTAGE [facility] MEDICARE ADVANTAGE [id number] 2023-Present [address] [place] [address] [id number] 2023 Medicare (Managed Care) [facility] [id number] 2023 Medicare [id number] 1959 Medicaid [id number] 1959 Medicare [id number] 1959 Private Health Insurance CLI [id number] 1955 Unknown [id number]. 593 1955 Unknown [id number]. 593 1955 Unknown [id number] [id number]. 593 1955 Unknown [id number] 2.16.840.1.060231.3.579.2. 593 1955 Unknown [id number] 2.16.840.1.549362.3.579.2. 593 1955 Unknown [id number] [id number]. 593 1955 Unknown [id number] 2.16.840.1.221945.3.579.2. 593 1955 Unknown [id number] [id number]. 593 1955 Unknown [id number] 2.16.840.1.002540.3.579.2. 1259 1955 Unknown [id number] [id number]. 1259 1955 Unknown [id number] 2.16.840.1.271789.3.579.2. 1259 1955 Unknown [id number] 2.16.840.1.824202.3.579.2. 1259 1955 Unknown [id number] [id number]. 1259 1955 Unknown [id number] [id number]. 1259 Social History Date Type Detail Facility Start: 04-29-2023 Tobacco smoking status ALIS Ex-smoke r [facility] History of tobacco use Current smoker [facility] History of tobacco use Cigarette Smoker [facility] Start: 04-29-2023 Tobacco use and exposure Smoke less tobacco non-user [facility] Start: 06-11-2023 End: 05-10-2024 Alcohol intake Lifetime non-drinker (finding) [facility] Start: 06-02-2023 End: 10-12-2023 [facility] of Social function [facility] Start: 06-02-2023 End: 10-12-2023 Humiliation, Afraid, Rape, and Kick questionnaire [HARK] [facility] Within the last year , have you been afraid of your partner or ex-partner? No [facility] Are you now , , , , never or living with a partner? [facility] How often to you hav e a drink containing alcohol? Never [facility] How many standard dr inks containing alcohol do you have on a typical day? Patient does not drink [facility] Do you feel stress - tense, restless, nervous, or anxious, or unable to sleep at night because your mind is troubled all the time - these days [OSQ] To some extent [facility] (I/We) worried wheth er (my/our) food would run out before (I/we) got money to buy more. Never true [facility] Start: 1955 Sex Assigned At Not on file [facility] Clinical Notes 09-17-2021 to 05-10-2024 Rosario Amezquita NP - 05/10/2024 4:37 PM TEMO BURKS - 05/10/2024 4:00 PM Edmund Amezquita NP - 05/10/2024 4:00 PM ESTPatient Kameron Amezquita NP - 04/05/2024 5:50 PM EST Note Date & Type Note Facility 05-10-2024 History of Present illness Narrative Associated Problem(s): Viral upper respiratory tract infection Neg for flu Offered to test for COVID at [facility] or send out health trax, she declines Recommend fluids, rest, tylenol/motrin prn Warm salt water gargles, and throat lozenges Does not work til Thursday Will call if worsens, advised viruses last 7-10 days, worse by day 5 then better Pt started with having a horse voice, ear pain, and coughing yesterday. Pt currently has a headache, sinus pressure, ear pain, stuffy nose, achy, and very fatigue. Images from the original note were not included. Sofie Adrian is a 68 y.o. female presents with chief complaint of Cough HPI: URI This is a new problem. The current episode started yesterday. The problem has been gradually worsening. There has been no fever. Associated symptoms include congestion, coughing, rhinorrhea and a sore throat. Pertinent negatives include no abdominal pain, chest pain, diarrhea, dysuria, ear pain, headaches, nausea, rash, swollen glands, vomiting or wheezing. Treatments tried: motrin. The treatment provided mild relief. SUBJECTIVE: MEDICATIONS: Current Outpatient Medications Medication Instructions alendronate (FOSAMAX) 70 mg, Oral, Every 7 days, Take with a full glass of water, remain upright for at least 30 mins atorvastatin (LIPITOR) 10 mg, Oral, Nightly Buprenorphine HCl-Naloxone HCl (Suboxone) 8-2 MG SL film 0.25 Film Calcium 500 + D3 500-15 MG-MCG tablet TAKE 1 TABLET BY MOUTH IN THE MORNING AND BEFORE BEDTIME cyclobenzaprine (FLEXERIL) 10 mg, Oral, 2 times daily, May take 1/2 -1 pill twice a day as needed for muscle spasms FLUoxetine (PROZAC) 10 mg, Oral, Daily meloxicam (MOBIC) 15 mg, Every morning omeprazole (PRILOSEC) 40 mg, Oral, Daily ALLERGIES: Allergies Allergen Reactions Sulfacetamide GI intolerance Penicillins Rash, Unknown and GI intolerance Sulfa Antibiotics Other, Rash and Unknown REVIEW OF SYMPTOMS: Review of Systems Constitutional: Positive for fatigue. Negative for appetite change, chills and fever. HENT: Positive for congestion, rhinorrhea and sore throat. Negative for ear pain. Eyes: Negative for pain, discharge, redness and visual disturbance. Respiratory: Positive for cough. Negative for shortness of breath and wheezing. Cardiovascular: Negative for chest pain, palpitations and leg swelling. Gastrointestinal: Negative for abdominal pain, blood in stool, constipation, diarrhea, nausea and vomiting. Genitourinary: Negative for difficulty urinating, dysuria and frequency. Musculoskeletal: Negative for arthralgias, back pain, joint swelling and myalgias. Skin: Negative for rash and wound. Neurological: Negative for dizziness, tremors, seizures, syncope and headaches. Psychiatric/Behavioral: Negative for behavioral problems, self-injury and suicidal ideas. The patient is not nervous/anxious. Hematological: Does not bruise/bleed easily. Endocrine: Negative for polydipsia, polyphagia and polyuria. Allergic/Immunologic: Negative for environmental allergies and food allergies. PAST MEDICAL HISTORY Past Medical History: Diagnosis Date Alcohol abuse, in remission Anxiety 06/02/2023 Back pain Benign hypertension (CMS/HCC) 06/03/2023 Chronic bilateral low back pain without sciatica 03/30/2023 Diverticulosis of colon without diverticulitis 06/11/2023 Gout, unspecified 06/03/2023 Hyperlipidemia ([facility]) 06/03/2023 Opioid abuse ([facility]) Osteoporosis, post-menopausal ([facility]) 06/11/2023 Pain in joint, multiple sites 06/11/2023 Past Surgical History: Procedure Laterality Date COLECTOMY 2017 SINUS SURGERY TUBAL LIGATION family history includes Cancer in her father; Diabetes in her father; Heart disease in her mother; Hyperlipidemia in her father. OBJECTIVE: Visit Vitals BP 108/78 (BP Location: Left arm, Patient Position: Sitting, BP Cuff Size: Adult long) Pulse 84 Temp 98.8 F (Temporal) Resp 19 Ht 4' 9.6 Wt 120 lb 6.4 oz SpO2 98% BMI 25.51 kg/m Smoking Status Former BSA 1.49 m Physical Exam Vitals and nursing note reviewed. Constitutional: General: She is not in acute distress. Appearance: Normal appearance. She is not ill-appearing. HENT: Head: Normocephalic and atraumatic. Right Ear: Tympanic membrane, ear canal and external ear normal. Left Ear: Tympanic membrane, ear canal and external ear normal. Nose: Congestion and rhinorrhea present. Mouth/Throat: Mouth: Mucous membranes are moist. Pharynx: No oropharyngeal exudate or posterior oropharyngeal erythema. Eyes: Extraocular Movements: Extraocular movements intact. Conjunctiva/sclera: Conjunctivae normal. Cardiovascular: Rate and Rhythm: Normal rate and regular rhythm. Pulses: Normal pulses. Heart sounds: Murmur heard. Pulmonary: Effort: Pulmonary effort is normal. No respiratory distress. Breath sounds: Normal breath sounds. No wheezing or rales. Abdominal: General: Bowel sounds are normal. There is no distension. Palpations: Abdomen is soft. There is no mass. Tenderness: There is no abdominal tenderness. Musculoskeletal: General: Normal range of motion. Cervical back: Normal range of motion and neck supple. Right lower leg: No edema. Left lower leg: No edema. Lymphadenopathy: Cervical: Cervical adenopathy present. Skin: General: Skin is warm and dry. Capillary Refill: Capillary refill takes 2 to 3 seconds. Findings: No rash. Neurological: General: No focal deficit present. Mental Status: She is alert and oriented to person, place, and time. Psychiatric: Mood and Affect: Mood normal. Behavior: Behavior normal. Thought Content: Thought content normal. Judgment: Judgment normal. ASSESSMENT AND PLAN: No follow-ups on file. Problem List Items Addressed This Visit Viral upper respiratory tract infection - Primary Neg for flu Offered to test for COVID at [facility] or send out health trax, she declines Recommend fluids, rest, tylenol/motrin prn Warm salt water gargles, and throat lozenges Does not work til Thursday Will call if worsens, advised viruses last 7-10 days, worse by day 5 then better Relevant Orders POCT Influenza A/B documented in this encounter [facility] 05-10-2024 Instructions Rosario Amezquita NP - 05/10/2024 4:00 PM EST Fluids, rest, tylenol/motrin prn Throat lozenges, warm salt water gargles documented in this encounter [facility] 04-05-2024 History of Present illness Narrative Associated Problem(s): Muscle cramps at night Check labs Differentials: PAD, radiculopathy, vit def, Associated Problem(s): Pain in both lower extremities Does not feel it is RLS, voltaren gel helps No UE symptoms Ongoing 3 months at least Will order labs Differentials: lumbar radiculopathy, possible vit def, PAD Consider EMG if labs normal Pt states she is having the back of her calves and sometimes back of the upper thigh muscles hurt almost every night. Pt states she believes it is NOT RLS she has tried medication for that and has not helped. 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 Images from the original note were not included. Sofie Adrian is a 68 y.o. female presents with chief complaint of Leg Pain (Aches and pain in legs ) HPI: Leg Pain The incident occurred more than 1 week ago. There was no injury mechanism. The pain is present in the left leg, left thigh, right leg and right thigh. The quality of the pain is described as aching. The pain is at a severity of 6/10. The pain is moderate. The pain has been Intermittent since onset. Pertinent negatives include no muscle weakness, numbness or tingling. She reports no foreign bodies present. The symptoms are aggravated by weight bearing. She has tried NSAIDs for the symptoms. The treatment provided mild relief. SUBJECTIVE: MEDICATIONS: Current Outpatient Medications Medication Instructions alendronate (FOSAMAX) 70 mg, Oral, Every 7 days, Take with a full glass of water, remain upright for at least 30 mins atorvastatin (LIPITOR) 10 mg, Oral, Nightly Buprenorphine HCl-Naloxone HCl (Suboxone) 8-2 MG SL film 0.25 Film Calcium 500 + D3 500-15 MG-MCG tablet TAKE 1 TABLET BY MOUTH IN THE MORNING AND BEFORE BEDTIME cyclobenzaprine (FLEXERIL) 10 mg, Oral, 2 times daily, May take 1/2 -1 pill twice a day as needed for muscle spasms FLUoxetine (PROZAC) 10 mg, Oral, Daily meloxicam (MOBIC) 15 mg, Oral, Every morning omeprazole (PRILOSEC) 40 mg, Oral, Daily ALLERGIES: Allergies Allergen Reactions Sulfacetamide GI intolerance Penicillins Rash, Unknown and GI intolerance Sulfa Antibiotics Other, Rash and Unknown REVIEW OF SYMPTOMS: Review of Systems Constitutional: Negative for appetite change, chills and fever. HENT: Negative for congestion, ear pain and sore throat. Eyes: Negative for pain, discharge, redness and visual disturbance. Respiratory: Negative for cough, shortness of breath and wheezing. Cardiovascular: Negative for chest pain, palpitations and leg swelling. Gastrointestinal: Negative for abdominal pain, blood in stool, constipation, diarrhea, nausea and vomiting. Genitourinary: Negative for difficulty urinating, dysuria and frequency. Musculoskeletal: Positive for back pain and myalgias. Negative for arthralgias and joint swelling. Skin: Negative for rash and wound. Neurological: Negative for dizziness, tingling, tremors, seizures, syncope, numbness and headaches. Psychiatric/Behavioral: Negative for behavioral problems, decreased concentration, self-injury and suicidal ideas. The patient is not nervous/anxious. Hematological: Does not bruise/bleed easily. Endocrine: Negative for polydipsia, polyphagia and polyuria. Allergic/Immunologic: Negative for environmental allergies and food allergies. PAST MEDICAL HISTORY Past Medical History: Diagnosis Date Alcohol abuse, in remission Anxiety 06/02/2023 Back pain Benign hypertension ([facility]/HCC) 06/03/2023 Chronic bilateral low back pain without sciatica 03/30/2023 Diverticulosis of colon without diverticulitis 06/11/2023 Gout, unspecified 06/03/2023 Hyperlipidemia ([facility]) 06/03/2023 Opioid abuse ([facility]) Osteoporosis, post-menopausal ([facility]) 06/11/2023 Pain in joint, multiple sites 06/11/2023 Past Surgical History: Procedure Laterality Date COLECTOMY 2017 SINUS SURGERY TUBAL LIGATION family history includes Cancer in her father; Diabetes in her father; Heart disease in her mother; Hyperlipidemia in her father. OBJECTIVE: Visit Vitals BP 120/76 (BP Location: Left arm, Patient Position: Sitting, BP Cuff Size: Adult long) Pulse 78 Temp 97.6 F (Temporal) Resp 18 Ht 4' 9.6 Wt 119 lb 6.4 oz SpO2 98% BMI 25.30 kg/m Smoking Status Former BSA 1.48 m Physical Exam Vitals and nursing note reviewed. Constitutional: General: She is not in acute distress. Appearance: Normal appearance. HENT: Head: Normocephalic and atraumatic. Right Ear: External ear normal. Left Ear: External ear normal. Nose: Nose normal. Mouth/Throat: Mouth: Mucous membranes are moist. Eyes: Extraocular Movements: Extraocular movements intact. Conjunctiva/sclera: Conjunctivae normal. Cardiovascular: Rate and Rhythm: Normal rate and regular rhythm. Pulses: Normal pulses. Heart sounds: Normal heart sounds. Pulmonary: Effort: Pulmonary effort is normal. Breath sounds: Normal breath sounds. Abdominal: General: Bowel sounds are normal. There is no distension. Palpations: Abdomen is soft. There is no mass. Tenderness: There is no abdominal tenderness. Musculoskeletal: Cervical back: Normal range of motion and neck supple. Right lower leg: No edema. Left lower leg: No edema. Comments: Spinal curvature deformity DTR's 2+ bilat patellar/achilles MMT 5/5 bilat LE Neg homans' sign Decreased ROM lumbar spine Strong pulses bilat PT/DP, thickened toe nails noted Skin: General: Skin is warm and dry. Capillary Refill: Capillary refill takes 2 to 3 seconds. Findings: No rash. Neurological: General: No focal deficit present. Mental Status: She is alert and oriented to person, place, and time. Psychiatric: Mood and Affect: Mood normal. Behavior: Behavior normal. Thought Content: Thought content normal. Judgment: Judgment normal. ASSESSMENT AND PLAN: No follow-ups on file. Problem List Items Addressed This Visit Pain in both lower extremities - Primary Does not feel it is RLS, voltaren gel helps No UE symptoms Ongoing 3 months at least Will order labs Differentials: lumbar radiculopathy, possible vit def, PAD Consider EMG if labs normal Muscle cramps at night Check labs Differentials: PAD, radiculopathy, vit def, Relevant Orders CK Magnesium Vitamin deficiency Relevant Orders Vitamin B12 documented in this encounter [facility] 04-05-2024 Instructions Rosario Amezquita NP - 04/05/2024 1:20 PM EST Check labs, if they are ok we will order an EMG to assess nerve function documented in this encounter [facility] 03-02-2024 History of Present illness Narrative Associated Problem(s): Heart murmur No current symtpoms Will monitor Associated Problem(s): Major depressive disorder, single episode, in full remission (CMS/HCC) No current depression symptoms Associated Problem(s): Anxiety Continue fluoxetine script, but is trying to possibly discontinue Associated Problem(s): Osteoporosis, post-menopausal (CMS/HCC) Continue fosamax, Needs DEXA scan Images from the original note were not included. Sofie Adrian is a 68 y.o. female presents with chief complaint of No chief complaint on file. HPI: Has lost 20 pounds since 09/2023. Has been working with diet changes and worked at [employer]. No abd pain, no NV, no bowel changes MARIA LUZ: no chest pain, pressure no heart palpitations, no SI/HI/hallucinations, is trying to wean off med if she can tolerate, currently right now is taking every other day. GERD: no NVD, no abd pain, no GERD if taking med. SUBJECTIVE: MEDICATIONS: Current Outpatient Medications Medication Instructions alendronate (FOSAMAX) 70 mg, Oral, Every 7 days, Take with a full glass of water, remain upright for at least 30 mins atorvastatin (LIPITOR) 10 mg, Oral, Nightly Buprenorphine HCl-Naloxone HCl (Suboxone) 8-2 MG SL film 0.25 Film Calcium Carb-Cholecalciferol (Calcium 500 + D3) 500-15 MG-MCG tablet 1 tablet, Oral, 2 times daily cyclobenzaprine (FLEXERIL) 10 mg, Oral, 2 times daily, May take 1/2 -1 pill twice a day as needed for muscle spasms FLUoxetine (PROZAC) 10 mg, Oral, Daily meloxicam (MOBIC) 15 mg, Oral, Every morning omeprazole (PRILOSEC) 40 mg, Oral, Daily ALLERGIES: Allergies Allergen Reactions Sulfacetamide GI intolerance Penicillins Rash, Unknown and GI intolerance Sulfa Antibiotics Other, Rash and Unknown REVIEW OF SYMPTOMS: Review of Systems Constitutional: Negative for appetite change, chills and fever. HENT: Negative for congestion, ear pain and sore throat. Eyes: Negative for pain, discharge, redness and visual disturbance. Respiratory: Negative for cough, shortness of breath and wheezing. Cardiovascular: Negative for chest pain, palpitations and leg swelling. Gastrointestinal: Negative for abdominal pain, blood in stool, constipation, diarrhea, nausea and vomiting. Genitourinary: Negative for difficulty urinating, dysuria and frequency. Musculoskeletal: Positive for back pain. Negative for arthralgias, joint swelling and myalgias. Skin: Negative for rash and wound. Neurological: Negative for dizziness, tremors, seizures, syncope and headaches. Psychiatric/Behavioral: Negative for behavioral problems, self-injury and suicidal ideas. The patient is not nervous/anxious. Hematological: Does not bruise/bleed easily. Endocrine: Negative for polydipsia, polyphagia and polyuria. Allergic/Immunologic: Negative for environmental allergies and food allergies. PAST MEDICAL HISTORY Past Medical History: Diagnosis Date Alcohol abuse, in remission Anxiety 06/02/2023 Back pain Benign hypertension ([facility]) 06/03/2023 Chronic bilateral low back pain without sciatica 03/30/2023 Diverticulosis of colon without diverticulitis 06/11/2023 Gout, unspecified 06/03/2023 Hyperlipidemia ([facility]) 06/03/2023 Opioid abuse ([facility]) Osteoporosis, post-menopausal ([facility]) 06/11/2023 Pain in joint, multiple sites 06/11/2023 Past Surgical History: Procedure Laterality Date COLECTOMY 2017 SINUS SURGERY TUBAL LIGATION family history includes Cancer in her father; Diabetes in her father; Heart disease in her mother; Hyperlipidemia in her father. OBJECTIVE: Visit Vitals BP 122/84 (BP Location: Left arm, Patient Position: Sitting, BP Cuff Size: Adult long) Pulse 69 Temp 98.7 F (Temporal) Resp 19 Ht 4' 9.6 Wt 119 lb 12.8 oz SpO2 98% BMI 25.39 kg/m Smoking Status Former BSA 1.49 m Physical Exam Vitals and nursing note reviewed. Constitutional: General: She is not in acute distress. Appearance: Normal appearance. HENT: Head: Normocephalic and atraumatic. Right Ear: External ear normal. Left Ear: External ear normal. Nose: Nose normal. Mouth/Throat: Mouth: Mucous membranes are moist. Eyes: Extraocular Movements: Extraocular movements intact. Conjunctiva/sclera: Conjunctivae normal. Neck: Vascular: No carotid bruit. Cardiovascular: Rate and Rhythm: Normal rate and regular rhythm. Pulses: Normal pulses. Heart sounds: Murmur heard. Pulmonary: Effort: Pulmonary effort is normal. Breath sounds: Normal breath sounds. No wheezing or rales. Abdominal: General: Bowel sounds are normal. There is no distension. Palpations: Abdomen is soft. There is no mass. Tenderness: There is no abdominal tenderness. Musculoskeletal: General: Normal range of motion. Cervical back: Normal range of motion and neck supple. Skin: General: Skin is warm and dry. Capillary Refill: Capillary refill takes 2 to 3 seconds. Findings: No rash. Neurological: General: No focal deficit present. Mental Status: She is alert and oriented to person, place, and time. Psychiatric: Mood and Affect: Mood normal. Behavior: Behavior normal. Thought Content: Thought content normal. Judgment: Judgment normal. ASSESSMENT AND PLAN: Follow up in about 3 months (around 06/02/2024) for Recheck. Problem List Items Addressed This Visit Gastroesophageal reflux disease without esophagitis Recommendations: freq small meals, nothing to eat or drink at least 2 hours prior to bed, limit caffeine, alcohol, as well as spicy foods Meds to limit or avoid if possible: NSAIDS Elevate HOB if possible Anxiety - Primary Continue fluoxetine script, but is trying to possibly discontinue Osteoporosis, post-menopausal (CMS/HCC) Continue fosamax, Needs DEXA scan Overweight (BMI 25.0-29.9) Major depressive disorder, single episode, in full remission (CMS/HCC) No current depression symptoms Heart murmur No current symtpoms Will monitor Associated Problem(s): Gastroesophageal reflux disease without esophagitis Recommendations: freq small meals, nothing to eat or drink at least 2 hours prior to bed, limit caffeine, alcohol, as well as spicy foods Meds to limit or avoid if possible: NSAIDS Elevate HOB if possible documented in this encounter [facility] 03-02-2024 Instructions Rosario Amezquita NP - 03/02/2024 2:20 PM EST Lab work Bone density scan: will send to [facility] documented in this encounter [facility] 06-11-2023 History of Present illness Narrative Associated Problem(s): Anxiety Doing well on meds Associated Problem(s): Gastroesophageal reflux disease without esophagitis stable Associated Problem(s): Osteoporosis, post-menopausal (CMS/HCC) Continue fosamax Associated Problem(s): Benign hypertension (CMS/HCC) Stable, no changes in meds Associated Problem(s): Medicare annual wellness visit, subsequent Reviewed Ht/Wt/BMI Recommend eye exam yearly Recommend dental exams twice a year Balance work/leisure activities Exercises is recommended most days of the week (appropriate as chronic conditions allow) Follow up yearly and prn Masha changed her suboxone dose- she has been decreasing dosage since April 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 The insurance was changed. Images from the original note were not included. Sofie Adrian is a 68 y.o. female presents with chief complaint of No chief complaint on file. HPI: Here for AWV Back pain is doing well as well. Changed to different pair of shoes which helped as well GERD She reports no chest pain, no choking, no coughing, no dysphagia, no early satiety, no nausea or no sore throat. This is a chronic problem. The current episode started more than 1 year ago. The problem occurs occasionally. The problem has been unchanged. She has tried a PPI for the symptoms. The treatment provided significant relief. Anxiety Presents for follow-up visit. Symptoms include nervous/anxious behavior. Patient reports no chest pain, excessive worry, irritability, nausea, restlessness, shortness of breath or suicidal ideas. Symptoms occur occasionally. The severity of symptoms is mild. The quality of sleep is good. Compliance with medications is 76-100%. SUBJECTIVE: MEDICATIONS: Current Outpatient Medications Medication Instructions alendronate (FOSAMAX) 70 mg, Oral, Every 7 days atorvastatin (LIPITOR) 10 mg, Oral, Daily Buprenorphine HCl-Naloxone HCl (Suboxone) 8-2 MG SL film 0.25 Film, Sublingual Calcium Carb-Cholecalciferol (Calcium 500 + D3) 500-15 MG-MCG tablet 1 tablet, Oral, 2 times daily cyclobenzaprine (FLEXERIL) 5 mg, Oral, 3 times daily PRN FLUoxetine (PROZAC) 20 mg, Oral, Daily Meloxicam 15 mg, Oral, Daily omeprazole (PRILOSEC) 40 mg, Oral, Daily ALLERGIES: Allergies Allergen Reactions Sulfacetamide GI intolerance Penicillins Rash, Unknown and GI intolerance Sulfa Antibiotics Other, Rash and Unknown REVIEW OF SYMPTOMS: Review of Systems Constitutional: Negative for irritability. HENT: Negative for sore throat. Respiratory: Negative for cough, choking and shortness of breath. Cardiovascular: Negative for chest pain. Gastrointestinal: Negative for dysphagia and nausea. Psychiatric/Behavioral: Negative for suicidal ideas. The patient is nervous/anxious. PAST MEDICAL HISTORY Past Medical History: Diagnosis Date Alcohol abuse, in remission Anxiety 06/02/2023 Back pain Benign hypertension (CMS/HCC) 06/03/2023 Chronic bilateral low back pain without sciatica 03/30/2023 Diverticulosis of colon without diverticulitis 06/11/2023 Gout, unspecified 06/03/2023 Hyperlipidemia ([facility]) 06/03/2023 Opioid abuse ([facility]) Osteoporosis, post-menopausal ([facility]) 06/11/2023 Pain in joint, multiple sites 06/11/2023 Past Surgical History: Procedure Laterality Date COLECTOMY 2017 SINUS SURGERY TUBAL LIGATION family history includes Cancer in her father; Diabetes in her father; Heart disease in her mother; Hyperlipidemia in her father. OBJECTIVE: Visit Vitals BP 122/78 (BP Location: Left arm, Patient Position: Sitting, BP Cuff Size: Adult long) Pulse 75 Temp 97.1 F (Temporal) Resp 18 Ht 4' 9.6 Wt 136 lb 6.4 oz SpO2 95% BMI 28.90 kg/m Smoking Status Former BSA 1.59 m Physical Exam Vitals reviewed. Constitutional: General: She is not in acute distress. Appearance: Normal appearance. HENT: Head: Normocephalic and atraumatic. Right Ear: Tympanic membrane, ear canal and external ear normal. Left Ear: Tympanic membrane, ear canal and external ear normal. Nose: Nose normal. Mouth/Throat: Mouth: Mucous membranes are moist. Eyes: Extraocular Movements: Extraocular movements intact. Conjunctiva/sclera: Conjunctivae normal. Neck: Vascular: No carotid bruit. Cardiovascular: Rate and Rhythm: Normal rate and regular rhythm. Pulses: Normal pulses. Heart sounds: Normal heart sounds. Pulmonary: Effort: Pulmonary effort is normal. Breath sounds: Normal breath sounds. Abdominal: General: Bowel sounds are normal. There is no distension. Palpations: Abdomen is soft. There is no mass. Tenderness: There is no abdominal tenderness. Musculoskeletal: General: Deformity (lumbar spine deformity) present. Cervical back: Neck supple. Skin: General: Skin is warm and dry. Capillary Refill: Capillary refill takes 2 to 3 seconds. Findings: No rash. Neurological: General: No focal deficit present. Mental Status: She is alert and oriented to person, place, and time. Psychiatric: Mood and Affect: Mood normal. Behavior: Behavior normal. Thought Content: Thought content normal. Judgment: Judgment normal. ASSESSMENT AND PLAN: No follow-ups on file. Problem List Items Addressed This Visit Chronic bilateral low back pain without sciatica Relevant Medications Meloxicam 15 MG tablet dispersible cyclobenzaprine (Flexeril) 10 MG tablet Gastroesophageal reflux disease without esophagitis stable Relevant Medications omeprazole (PriLOSEC) [address] capsule Anxiety Doing well on meds Relevant Medications FLUoxetine (PROzac) 20 MG capsule Benign hypertension (CMS/HCC) - Primary Stable, no changes in meds Hyperlipidemia (CMS/HCC) Relevant Medications atorvastatin (Lipitor) 10 MG tablet Osteoporosis, post-menopausal (CMS/HCC) Continue fosamax Relevant Medications alendronate (Fosamax) 70 MG tablet Calcium Carb-Cholecalciferol (Calcium 500 + D3) 500-15 MG-MCG tablet Medicare annual wellness visit, subsequent Reviewed Ht/Wt/BMI Recommend eye exam yearly Recommend dental exams twice a year Balance work/leisure activities Exercises is recommended most days of the week (appropriate as chronic conditions allow) Follow up yearly and prn Other Visit Diagnoses Age related osteoporosis, unspecified pathological fracture presence (CMS/HCC) Relevant Medications alendronate (Fosamax) 70 MG tablet documented in this encounter [facility] 10-22-2021 Note HNO ID: [id number] Author: Koko Burris MD Service: General Surgery Author Type: Resident Type: Progress Notes Filed: 10/22/2021 5:05 PM Note Text: Documentation Query Based on your medical judgment of the clinical indicators outlined below, please clarify the condition: (Please type X next to your response and sign) Good morning Dr. Burris, Clinical Indicators: Lab Results 10/19/21 [...] your independent professional judgment. Thank you, Annabella [facility] 10-22-2021 Note HNO ID: [id number] Author: Joceline Liang MD Service: General Surgery [...] Acute Care Surgery (ACS) Day Floor Pager: [phone] Acute Care Surgery (ACS) Day Consults Pager: [phone] On nights (6 pm to 6 am) and on Weekends/Holidays, please page the on-call pager: [phone] ___ Subjective: See above Physical Exam: BP [...] BMP, MG, PHOS Recent Labs 10/22/21 0714 10/19/21220210/19/21220101/12/17 0458 01/11/17 0515 01/10/17 0453 01/09/17 0623 [...] this interval not displayed. Coags Recent Labs 10/19/212 01/09/17 0950 01/09/17 0623 01/08/17 2345 APTT 26.6 28.1 26.8 27.7 INR 1.1 1.1 1.1 1.1 Intake and Output: Date 10/21/21699 - 10/22/21 0659 10/22/21699 - 10/23/21 0659 Shift [id number] 24 Hour Total 1658-1677 1663-0817 [id number] 24 Hour Total INTAKE PO [address] 240 [...] sublingual film (SUBOXONE) 2 Film SUBLINGUAL DAILY [facility] 10-21-2021 Note HNO ID: [id number] Author: Merline Sanchez RN Service: Care Management Author Type: Registered Nurse Type: Care Mgt Initial Assessment Filed: 10/21/2021 11:35 AM Note Text: CARE MANAGEMENT: ASSESSMENT AND DISCHARGE PLAN SERVICE DATE: October 21, 2021 SERVICE TIME: 11:29 AM PRIMARY CARE PHYSICIAN: Rosario Amezquita CNP, MONIQUE Primary Contact: Extended Emergency Contact Information Primary Emergency Contact: Maude Adrian Relation: Daughter Secondary Emergency Contact: mansoorcecile estrada yWorld Relation: Spouse ADMISSION STATUS: Inpatient Insurance Provider: N/A NEEDS PRIOR TO DISCHARGE Needs Prior to Discharge: To Be Determined;Procedure Procedure Needed: SBFT today POTENTIAL TRANSITION PLANS To Be Determined Patient's perception of need for this admission: [facility]BO ADVANCE DIRECTIVES Current Advance Directive: None Product Marketing Intern Attempted to Assist with AD Completion: Yes [...] External Provider Provider Name: Rosario Amezquita CNP [phone] Does the patient have transportation upon discharge?: [...] Completely I feel financially burdened by my [id number] expenses for my prescription medication:: 0 - Disagree Completely Risk Score: 0 Patient is categorized as: Low risk < 2 FUNCTIONAL How do you manage to accomplish the following: Independent: Ambulation;Bathe/Shower;Dress;Meal s/Meal Prep;Going to the bathroom;Medication Management;Transportation to appointments/community Services/Needs//Equipment Does Patient Currently Receive Any Community Services or Home Care?: None Equipment Prior to Admission: None Has the Patient Been in a Detention Facility in the Past 30 days?: No No medical discharge barriers identified at this time. No social discharge barriers identified at this time. No behavioral/cognitive discharge barriers identified at this time. No functional discharge barriers identified at this time. FREEDOM OF CHOICE EXPLAINED: [place] Given: No Reason Not Given: [...] 21, 2021 TIME: 11:29 AM CONTACT #: [phone] [facility] 10-21-2021 Note HNO ID: [id number] Author: Koko Burris MD Service: General Surgery Author Type: Resident Type: Progress Notes Filed: 10/21/2021 7:42 AM Note Text: GENERAL SURGERY PROGRESS NOTE Service Date: October 21, 2021 Assessment and Plan: Sofie Adrian is a 66yoF w/ PSH of laparoscopic TAC+DEONNA (2015) f/b diagnostic laparoscopy/JOHNY for adhesive SBO (2017) [...] Acute Care Surgery (ACS) Day Floor Pager: [phone] Acute Care Surgery (ACS) Day Consults Pager: [phone] On nights (6 pm to 6 am) and on Weekends/Holidays, please page the on-call pager: [phone] ___ Subjective: See above Physical Exam: BP [...] Labs: CBC, BMP, MG, PHOS Recent Labs 10/19/213 10/19/21220101/12/17 0458 01/11/17 0515 01/10/17 0453 01/09/17 [...] 0659 10/21/21 07 - 10/22/21 0659 Shift 2118-8250 1672-0831 8268-2445 24 Hour Total 1538-0777 2444-8820 8617-7304 24 Hour Total INTAKE IV 850 116 101 3012 Volume (mL) (NaCl 0.9% iv flush bag) 600 600 Volume (mL) (potassium chloride iv piggyback 20 mEq/100 mL) 200 100 300 Volume (mL) (magnesium sulfate 2 g in sterile water 50 ml) 50 50 Volume (mL) (dextrose 5% in NaCl 0.45% iv infusion) 882 173 1606 Shift Total 850 690 810 4478 OUTPUT Urine 400 187 896 4725 Void (ml) 400 075 288 9452 Tubes 75 25 100 Output (GI Feed 10/19/21 1700 Admission to Hospital Gastric Right Naris) 75 25 100 Shift Total 475 442 890 3608 Weight (kg) 56.5 56.5 56.5 56.5 56.5 [...] sublingual film (SUBOXONE) 2 Film SUBLINGUAL DAILY [facility] 10-20-2021 Note HNO ID: [id number] Author: Leighann Rodriguez RN Service: Nursing Author Type: Registered Nurse Type: Plan of Care Filed: 10/20/2021 12:45 PM Note Text: PATIENT NAME: Sofie Adrian Patient reports taking Suboxone at home for the last year. Last dosage was taken 10/17/21 before ED admission (8-2MG sublingual films). Opioids had been given at outside hospital. Patient currently has no complaints of withdrawal symptoms. Primary team has been contacted regarding suboxone orders. No further intervention at this time, will continue to observe and check with patient. This note was completed by: Leighann Rodriguez [facility] 10-20-2021 Note HNO ID: [id number] Author: Koko Burris MD Service: General Surgery Author Type: Resident Type: Progress Notes Filed: 10/20/2021 8:57 AM Note Text: GENERAL SURGERY PROGRESS NOTE Service Date: October 20, 2021 Assessment and Plan: Sofie Adrian is a 66yoF w/ PSH of laparoscopic TAC+DEONNA (2015) f/b diagnostic laparoscopy/JOHNY for adhesive SBO (2017) [...] Acute Care Surgery (ACS) Day Floor Pager: [phone] Acute Care Surgery (ACS) Day Consults Pager: [phone] On nights (6 pm to 6 am) and on Weekends/Holidays, please page the on-call pager: [phone] ___ Subjective: See above Physical Exam: BP [...] not displayed. Coags Recent Labs 10/19/21220101/09/17 0950 01/09/17 0623 01/08/17 2345 APTT 26.6 28.1 26.8 27.7 INR 1.1 1.1 1.1 1.1 Intake and Output: Date 10/19/21699 - 10/20/2165810/20/21699 - 10/21/21 0659 Shift 2852-4563 4243-3413 8573-4934 24 Hour Total 3589-8874 9430-7901 0621-4189 24 Hour Total INTAKE IV 300 600 900 Volume (mL) (dextrose 5% in NaCl 0.45% iv infusion) 300 600 900 Shift Total 300 600 900 OUTPUT Urine 250 450 700 Void (ml) 250 450 700 Tubes 350 150 500 Output (GI Feed 10/19/21 1700 Admission to Hospital Gastric Right Naris) 350 150 500 Shift Total 681 113 5366 Weight (kg) 56.5 56.5 56.5 56.5 56.5 [...] injection 5,000 Units SUBCUTANEOUS q 12 H [facility] 09-17-2021 Note PROCEDURE: XR FOOT L T [...] by: ISAIAH ROJAS Date: 2021-09-17 11:[address] [facility] Evaluation note Diagnosis Medicare annual wellness visit, subsequent- Primary Benign hypertension (CMS/HCC) Essential hypertension, benign Osteoporosis, post-menopausal (CMS/HCC) Senile osteoporosis Anxiety Anxiety state, unspecified Gastroesophageal reflux disease without esophagitis Esophageal reflux Age related osteoporosis, unspecified pathological fracture presence ([facility]/HCC) Chronic bilateral low back pain without sciatica Mixed hyperlipidemia ([facility]/HCC) Mixed hyperlipidemia [facility] Diagnosis Medicare annual wellness visit, subsequent- Primary Benign hypertension ([facility]/HCC) Essential hypertension, benign Osteoporosis, post-menopausal ([facility]/HCC) Senile osteoporosis Anxiety Anxiety state, unspecified Gastroesophageal reflux disease without esophagitis Esophageal reflux Age related osteoporosis, unspecified pathological fracture presence ([facility]/HCC) Chronic bilateral low back pain without sciatica Mixed hyperlipidemia ([facility]/HCC) Mixed hyperlipidemia Chronic bilateral low back pain without sciatica- Primary Anxiety Anxiety state, unspecified Anxiety- Primary Anxiety state, unspecified Hx of opioid abuse ([facility]/HCC) Chronic bilateral low back pain without sciatica Overweight (BMI 25.0-29.9) Overweight Chronic bilateral low back pain without sciatica [facility]* Diagnosis Medicare annual wellness visit, subsequent- Primary Benign hypertension (CMS/HCC) Essential hypertension, benign Osteoporosis, post-menopausal ([facility]/HCC) Senile osteoporosis Anxiety Anxiety state, unspecified Gastroesophageal reflux disease without esophagitis Esophageal reflux Age related osteoporosis, unspecified pathological fracture presence ([facility]/HCC) Chronic bilateral low back pain without sciatica Mixed hyperlipidemia ([facility]/HCC) Mixed hyperlipidemia Chronic bilateral low back pain without sciatica- Primary Anxiety Anxiety state, unspecified Anxiety- Primary Anxiety state, unspecified Hx of opioid abuse ([facility]/HCC) Chronic bilateral low back pain without sciatica Overweight (BMI 25.0-29.9) Overweight Anxiety- Primary Anxiety state, unspecified Major depressive disorder, single episode, in full remission ([facility]/HCC) Major depressive disorder, single episode in full remission Overweight (BMI 25.0-29.9) Overweight Osteoporosis, post-menopausal ([facility]/HCC) Senile osteoporosis Gastroesophageal reflux disease without esophagitis Esophageal reflux Heart murmur Undiagnosed cardiac murmurs documented [facility]* Diagnosis Medicare annual wellness visit, subsequent- Primary Benign hypertension ([facility]) Essential hypertension, benign Osteoporosis, post-menopausal [facility]) Senile osteoporosis Anxiety Anxiety state, unspecified Gastroesophageal reflux disease without esophagitis Esophageal reflux Age related osteoporosis, unspecified pathological fracture presence [facility]) Chronic bilateral low back pain without sciatica Mixed hyperlipidemia [facility] Mixed hyperlipidemia Chronic bilateral low back pain without sciatica- Primary Anxiety Anxiety state, unspecified Anxiety- Primary Anxiety state, unspecified Hx of opioid abuse ([facility]) Chronic bilateral low back pain without sciatica Overweight (BMI 25.0-29.9) Overweight Anxiety- Primary Anxiety state, unspecified Major depressive disorder, single episode, in full remission [facility] Major depressive disorder, single episode in full remission Overweight (BMI 25.0-29.9) Overweight Osteoporosis, post-menopausal [facility]) Senile osteoporosis Gastroesophageal reflux disease without esophagitis Esophageal reflux Heart murmur Undiagnosed cardiac murmurs Pain in both lower extremities- Primary Muscle cramps at night Cramp of limb Vitamin deficiency Unspecified vitamin deficiency Chronic bilateral low back pain without sciatica documented [facility]* Diagnosis Anxiety Anxiety state, unspecified documented [facility]* Diagnosis Chronic bilateral low back pain without sciatica documented [facility]* Diagnosis Medicare annual wellness visit, subsequent- Primary Benign hypertension ([facility]) Essential hypertension, benign Osteoporosis, post-menopausal [facility]) Senile osteoporosis Anxiety Anxiety state, unspecified Gastroesophageal reflux disease without esophagitis Esophageal reflux Age related osteoporosis, unspecified pathological fracture presence [facility]) Chronic bilateral low back pain without sciatica Mixed hyperlipidemia ([facility]) Mixed hyperlipidemia Chronic bilateral low back pain without sciatica- Primary Anxiety Anxiety state, unspecified Anxiety- Primary Anxiety state, unspecified Hx of opioid abuse [facility]) Chronic bilateral low back pain without sciatica Overweight (BMI 25.0-29.9) Overweight Anxiety- Primary Anxiety state, unspecified Major depressive disorder, single episode, in full remission [facility]) Major depressive disorder, single episode in full remission Overweight (BMI 25.0-29.9) Overweight Osteoporosis, post-menopausal ([facility]) Senile osteoporosis Gastroesophageal reflux disease without esophagitis Esophageal reflux Heart murmur Undiagnosed cardiac murmurs Pain in both lower extremities- Primary Muscle cramps at night Cramp of limb Vitamin deficiency Unspecified vitamin deficiency Chronic bilateral low back pain without sciatica Viral upper respiratory tract infection- Primary Acute upper respiratory infections of unspecified site documented [facility]* Diagnosis Medicare annual wellness visit, subsequent- Primary Benign hypertension ([facility]) Essential hypertension, benign Osteoporosis, post-menopausal ([facility]) Senile osteoporosis Anxiety Anxiety state, unspecified Gastroesophageal reflux disease without esophagitis Esophageal reflux Age related osteoporosis, unspecified pathological fracture presence ([facility]) Chronic bilateral low back pain without sciatica Mixed hyperlipidemia ([facility]) Mixed hyperlipidemia Chronic bilateral low back pain without sciatica- Primary Anxiety Anxiety state, unspecified Anxiety- Primary Anxiety state, unspecified Hx of opioid abuse ([facility]) Chronic bilateral low back pain without sciatica Overweight (BMI 25.0-29.9) Overweight Anxiety- Primary Anxiety state, unspecified Major depressive disorder, single episode, in full remission ([facility]) Major depressive disorder, single episode in full remission Overweight (BMI 25.0-29.9) Overweight Osteoporosis, post-menopausal ([facility]) Senile osteoporosis Gastroesophageal reflux disease without esophagitis Esophageal reflux Heart murmur Undiagnosed cardiac murmurs Pain in both lower extremities- Primary Muscle cramps at night Cramp of limb Vitamin deficiency Unspecified vitamin deficiency Chronic bilateral low back pain without sciatica Viral upper respiratory tract infection- Primary Acute upper respiratory infections of unspecified site Gastroesophageal reflux disease without esophagitis Esophageal reflux documented in this encounter [facility] Summary Purpose Family History No Family History Records FoundNo Family History Records FoundNo Family History Records FoundNo Family History Records FoundNo Family History Records Found Advance Directives No Advanced Directives Records FoundNo Advanced Directives Records FoundNo Advanced Directives Records FoundNo Advanced Directives Records FoundNo Advanced Directives Records Found Additional Source Comments INFORMATION SOURCE (unrecogn ized section and content) DATE CREATED AUTHOR 10/20/2017 [facility] DATE CREATED AUTHOR AUTHOR'S ORGANIZ ATION 10/21/2017 [facility] DATE CREATED AUTHOR AUTHOR'S ORGANIZ ATION 10/22/2021 [facility] DATE CREATED AUTHOR AUTHOR'S ORGANIZ ATION 07/30/2022 [facility] DATE CREATED AUTHOR AUTHOR'S ORGANIZ ATION 05/14/2024 [facility] Care Teams (unrecognized sec tion and content) Security Services Specialist Relationship Specialty Start Date End Date Rosario Amezquita NP [address] [place] [phone] PCP - Vidal HERNANDEZ 04/27/23 Dayton Amaya MD [address] [place] [phone] PCP - General Family Medicine 06/11/23 Rosario Amezquita NP [address] [place] [address] Referring Physician Nurse Practitioner 11/12/22 Rosario Amezquita NP [address] [place] [phone] Nurse Practitioner Family Medicine 06/11/23 Security Services Specialist Relationship Specialty Start Date End Date Rosario Amezquita NP [address] [place] [phone] PCP - Vidal HERNANDEZ 04/27/23 Dayton Amaya MD [address] [place] [phone] PCP - General Family Medicine 06/11/23 Rosario Amezquita NP [address] [place] [phone] Referring Physician Nurse Practitioner 11/12/22 Rosario Amezquita NP [address] [place] [phone] Nurse Practitioner Family Medicine 06/11/23 Security Services Specialist Relationship Specialty Start Date End Date Rosario Amezquita NP [address] [place] [address] PCP - Vidal HERNANDEZ 04/27/23 Dayton Amaya MD [address] [place] [phone] PCP - General Family Medicine 06/11/23 Rosario Amezquita NP [address] [place] [phone] Referring Physician Nurse Practitioner 11/12/22 Rosario Amezquita NP [address] [place] [phone] Nurse Practitioner Family Medicine 06/11/23 Security Services Specialist Relationship Specialty Start Date End Date Rosario Amezquita NP [address] [place] [phone] PCP - Vidal HERNANDEZ 04/27/23 Dayton Amaya MD [address] [place] [phone] PCP - General Family Medicine 06/11/23 Rosario Amezquita NP [address] [place] [phone] Referring Physician Nurse Practitioner 11/12/22 Rosario Amezquita NP [address] [place] [phone] Nurse Practitioner Family Medicine 06/11/23 Security Services Specialist Relationship Specialty Start Date End Date Rosario Amezquita NP [address] [place] [phone] PCP - Vidal HERNANDEZ 04/27/23 Dayton Amaya MD [address] [place] [phone] PCP - General Family Medicine 06/11/23 Rosario Amezquita NP [address] [place] [phone] Referring Physician Nurse Practitioner 11/12/22 Rosario Amezquita NP [address] [place] [phone] Nurse Practitioner Family Medicine 06/11/23 Security Services Specialist Relationship Specialty Start Date End Date Rosario Amezquita NP [address] [place] [phone] PCP - Vidal HERNANDEZ 04/27/23 Dayton Amaya MD [address] [place] [address] PCP - General Family Medicine 06/11/23 Rosario Amezquita NP [address] [place] [phone] Referring Physician Nurse Practitioner 11/12/22 Rosario Amezquita NP [address] [place] [phone] Nurse Practitioner Family Medicine 06/11/23 Security Services Specialist Relationship Specialty Start Date End Date Rosario Amezquita NP [address] [place] [address] PCP - Vidal HERNANDEZ 04/27/23 Dayton Amaya MD [address] [place] [address] PCP - General Family Medicine 06/11/23 Rosario Amezquita NP [address] [place] [address] Referring Physician Nurse Practitioner 11/12/22 Rosario Amezquita NP [address] [place] [address] Nurse Practitioner Family Medicine 06/11/23 Security Services Specialist Relationship Specialty Start Date End Date Rosario Amezquita NP [address] [place] [phone] PCP - Vidal HERNANDEZ 04/27/23 Dayton Amaya MD [address] [place] [phone] PCP - General Family Medicine 06/11/23 Rosario Amezquita NP [address] [place] [address] Referring Physician Nurse Practitioner 11/12/22 Rosario Amezquita NP [address] [place] [phone] Nurse Practitioner Family Medicine 06/11/23 Security Services Specialist Relationship Specialty Start Date End Date Rosario Amezquita NP [address] [place] [address] PCP - Vidal HERNANDEZ 04/27/23 Dayton Amaya MD [address] [place] [phone] PCP - General Family Medicine 06/11/23 Rosario Amezquita NP [address] [place] [address] Referring Physician Nurse Practitioner 11/12/22 Rosario Amezquita NP [address] [place] [address] Nurse Practitioner Family Medicine 06/11/23 Security Services Specialist Relationship Specialty Start Date End Date Rosario Amezquita NP [address] [place] [phone] PCP - Vidal HERNANDEZ 04/27/23 Dayton Amaya MD [address] [place] [address] PCP - General Family Medicine 06/11/23 Rosario Amezquita NP [address] [place] [address] Referring Physician Nurse Practitioner 11/12/22 Rosario Amezquita NP [address] [place] [phone] Nurse Practitioner Family Medicine 06/11/23 Reason for Visit (unrecogniz ed section and content) Reason Comments Med Refill Reason Comments Leg Pain Aches and pain in le gs Reason Comments Cough FOR RECORDS PERTAINING TO PATIENTS WHO ARE [...] BE BASED ON THE PRIMARY CLINICAL RECORDS. [employer] provides no warranty or guarantee of the accuracy or completeness of information in this document.
== END 2024-05-26 09:51 | disposition home or self-care (01) ==
LOC: RAD 09:50
PROVIDERS: PCP Nurse Practitioner; Visit Provider Nurse Practitioner
DX: M81.0 Age-related osteoporosis without current pathological fracture (principal); M85.80 Other specified disorders of bone density and structure, unspecified site
CPT/HCPCS: 77080

== ENCOUNTER 2024-10-06 14:23 | Outpatient (OUT) | payer MEDICARE, SELFPAY ==
--- NOTE | 2024-10-06 14:30 | XR_ITS ---
The [address] [address] Patient Name: SOFIE ADRIAN MRN: [id number] date: 1955 Sex: F Assigned Patient Location: [facility] Current Patient Location: [facility] Accession/Order Number: [id number] Exam Date: 10/06/2024 15:21 Report Date: 10/06/2024 15:23 At the request of: MERCEDES CESAR DPJf Procedure: XR foot RT min 3V RIGHT FOOT - 3 views CLINICAL HISTORY: Swelling at first distal interphalangeal joint for one month. COMPARISON: Right foot 06/03/2023 FINDINGS: Soft tissue swelling is noted involving the first digit. First MTP hardware without radiographic complication. Plantar spurring. No acute bony process. Presumed posttraumatic changes involving the heads of the proximal phalanx of the second third and likely fourth digits. Degenerative changes involving the IP joint of the first digit without bony erosions. XR/XR foot RT min 3V IMPRESSION: SOFT TISSUE SWELLING INVOLVING THE FIRST DIGIT WITHOUT ACUTE BONY PROCESS OR HARDWARE COMPLICATION. Impression dictated by: Rigo Cesar Jr., D.O. 10/06/2024 3:23 PM Dictation Location: [place] [address] Electronically authenticated by: [id number] Y Date: 10/06/2024 15:23
== END 2024-10-06 14:24 | disposition home or self-care (01) ==
PROVIDERS: PCP Nurse Practitioner; Visit Provider Podiatrist Foot & Ankle Surgery
DX: M79.671 Pain in right foot (principal); M25.474 Effusion, right foot
CPT/HCPCS: 73630

== ENCOUNTER 2024-10-13 11:32 | Outpatient (OUT) | payer MEDICARE, SELFPAY ==
--- OUTSIDE RECORDS SUMMARY | 2024-10-13 11:39 | XMS_ITS | CCD ---
Author Organization [facility] Care Team Providers Care Process Treater Name Role Phone NATASHA YUN (CORRECTIONS OFFICER) Unavailable UnavailNATASHA Sherman (CORRECTIONS OFFICER) Unavailable UnavailTERESA Miranda Unavailable Unavailable ALAEDEEN, ADIS Unavailable Unavailable AICHHOLZ, SEISMOGRAPH OBSERVER ROSARIO Admitting Unavailable AICHHOLZ, SEISMOGRAPH OBSERVER ROSARIO Attending Unavailable AICHHOLZ, SEISMOGRAPH OBSERVER ROSARIO Consulting Unavailable AICHHOLZ, SEISMOGRAPH OBSERVER ROSARIO Primary Care Unavailable DR ISAIAH ROJAS Consulting Unavailable AICHHOLZ, SEISMOGRAPH OBSERVER ROSARIO Admitting Unavailable AICHHOLZ, SEISMOGRAPH OBSERVER ROSARIO Attending Unavailable AICHHOLZ, SEISMOGRAPH OBSERVER ROSARIO Consulting Unavailable AICHHOLZ, SEISMOGRAPH OBSERVER ROSARIO Primary Care Unavailable AICHHOLZ, SEISMOGRAPH OBSERVER ROSARIO Admitting Unavailable AICHHOLZ, SEISMOGRAPH OBSERVER ROSARIO Consulting Unavailable AICHHOLZ, SEISMOGRAPH OBSERVER ROSARIO Attending Unavailable AICHHOLZ, SEISMOGRAPH OBSERVER ROSARIO Primary Care Unavailable DR ISAIAH ROJAS Consulting Unavailable JORDAN, JOCELINE Attending Unavailable DR ISAIAH ROJAS Consulting Unavailable JORDAN, JOCELINE Admitting Unavailable AICHHOLZ, SEISMOGRAPH OBSERVER ROSARIO Primary Care Unavailable JOCELINE ORTEGA Consulting Unavailable DR SIAIAH ROJAS Consulting Unavailable JORDAN, JOCELINE Admitting Unavailable JORDAN, JOCELINE Attending Unavailable AICHHOLZ, SEISMOGRAPH OBSERVER ROSARIO Primary Care Unavailable JORDAN, JOCELINE Consulting Unavailable DR JESSICA SAMPSON Consulting Unavailable GRABIEL, NAYE Admitting Unavailable NAYE SPAIN Attending Unavailable AICHHOLZ, SEISMOGRAPH OBSERVER ROSARIO Primary Care Unavailable DR HOLLIE MATA Consulting Unavailable CHAPIN DEJESUS Consulting Unavailable NAYE SPAIN Consulting Unavailable BRIEN JAIMES Consulting Unavailable AICHHOLZ, SEISMOGRAPH OBSERVER ROSARIO Consulting Unavailable AICHHOLZ, SEISMOGRAPH OBSERVER ROSARIO Admitting Unavailable AICHHOLZ, SEISMOGRAPH OBSERVER ROSARIO Attending Unavailable AICHHOLZ, SEISMOGRAPH OBSERVER ROSARIO Primary Care Unavailable AICHHOLZ, SEISMOGRAPH OBSERVER ROSARIO Admitting Unavailable AICHHOLZ, SEISMOGRAPH OBSERVER ROSARIO Attending Unavailable AICHHOLZ, SEISMOGRAPH OBSERVER ROSARIO Consulting Unavailable AICHHOLZ, SEISMOGRAPH OBSERVER ROSARIO Primary Care Unavailable Aichholz CORRECTIONS OFFICER, Rosario Unavailable Aichholz CORRECTIONS OFFICER, Rosario Unavailable Dayton Amaya MD Primary Care Provider Aichholz CORRECTIONS OFFICER, Rosario Unavailable Aichholz CORRECTIONS OFFICER, Rosario Unavailable AICHHOLZ, ROSARIO Attending Unavailable AICHHOLZ, ROSARIO Attending Unavailable AICHHOLZ, ROSARIO Attending Unavailable AICHHOLZ, ROSARIO Attending Unavailable AICHHOLZ, ROSARIO Attending Unavailable AICHHOLZ, ROSARIO Attending Unavailable Allergies Allergy Classification Reported Allergen(s) Allergy Type Date of Onset Reaction(s) Facility (20 sources) Penicillins; Translations: [PENICILLINS] Propensity to adverse reactions to drug (disorder) 10-22-19 14 Rash, Unknown, GI intolerance [facility] Repository (2 sources) Sulfonamides (Antibiotic); Translations: [SULFA (SULFONAMIDE ANTIBIOTICS)] Propensity to adverse reactions to drug (disorder) 10-22-19 14 AOF [facility] Repository (1 source) Sulfonamides (Antibiotic) Drug allergy (disorder) 01-26-20 15 [facility] Repository (20 sources) Sulfacetamide Drug Allergy 04-29-19 24 GI intolerance [facility] (20 sources) Sulfonamides (Antibiotic) Drug Intolerance 10-22-19 14 Other, Rash, Unknown [facility] Medications Current Medications Medication Drug Class(es) Dates Sig (Normalized) Sig (Original) alendronic acid 70 mg oral tablet (20 sources) Bisphosphonate Start: 10-10-2024 End: 01-02-2025 alendronate (Fosamax) 70 MG tablet Indications: Osteoporosis, post-menopausal , Age related osteoporosis, unspecified pathological fracture presence Take 1 tablet (70 mg) by mouth every 7 (seven) days Take with a full glass of water, remain upright for at least 30 mins 12 tablet 1 10/10/2024 01/02/2025 Active Start: 09-25-2023 alendronate (F osamax) 70 MG tablet Indications: Osteoporosis, post-menopausal , Age related osteoporosis, unspecified pathological fracture presence Take 1 tablet (70 mg) by mouth [...] 07/09/2023 Active atorvastatin 10 mg oral tablet (20 sources) HMG-CoA Reductase Inhibitor Start: 09-25-2023 take [...] mg / naloxone 2 mg sublingual film (20 sources) Partial Opioid Agonist, Opioid Antagonist Buprenorphine HCl-Naloxone HCl (Suboxone) 8-[address] 0.25 Film under the tongue Active calcium carbonate 1250 mg / cholecalciferol 600 unt oral tablet (20 sources) Vitamin D Start: 03-08-20 24 End: 09-06-19 25 take 1 tablet by mouth in the morning Calcium Carb-Cholecalciferol (Calcium 500 + D3) 500-15 MG-MCG tablet Indications: Age-related osteoporosis without current pathological fracture (CMS/HCC) Take 1 tablet by mouth in the morning and 1 tablet before bedtime. 180 tablet 1 06/07/2024 09/05/2024 Active Start: 12-06-2023 End: 03-05-2024 take 1 [...] Active cyclobenzaprine hydrochloride 10 mg oral tablet (20 sources) Muscle Relaxant Start: 02-14-2024 End: 07-28-2024 take 1 tablet by mouth in the [...] needed for muscle spasms. 60 tablet 3 06/28/2024 Active Start: 06-11-2023 End: 07-11-2023 take 1 [...] of medication) FLUoxetine 10 mg oral capsule (20 sources) Serotonin Reuptake Inhibitor Start: 01-04-2024 End: [...] 09/09/2023 Active meloxicam 15 mg oral tablet (20 sources) Nonsteroidal Anti-inflammatory Drug Start: 07-19-2024 End: 10-17-2024 take 1 tablet by mouth in the morning meloxicam (Mobic) 15 MG tablet Indications: Low back pain, unspecified Take 1 tablet (15 mg) by mouth in the morning. 90 tablet 1 07/19/2024 10/17/2024 Active Start: 01-18-2024 End: 04-17-2024 take 1 tablet [...] omeprazole 40 mg delayed release oral capsule (20 sources) Proton Pump Inhibitor Start: 09-25-2023 End: 08-13-2024 take 1 capsule by mouth before mealtime omeprazole (PriLOSEC) [address] capsule Indications: Gastroesophageal reflux disease without esophagitis Take 1 capsule (40 mg) by mouth in the morning. Take before meals. 90 capsule 1 05/15/2024 Active Start: 05-23-2023 End: 09-09-2023 take 1 [...] [Anxiety disorder, unspecified] Onset: 06-02-2023 06-02-2023 Chronic Disorders of lipid metabolism (20 sources) Hyperlipidemia; Translations: [Hyperlipidemia, unspecified] Onset: 06-03-2023 06-03-2023 Chronic Diverticulosis and diverticulitis (20 sources) Diverticulosis of colon without diverticulitis; Translations: [Diverticulosis of large intestine without perforation or abscess without bleeding] Onset: 06-11-2023 06-11-2023 Chronic Esophageal disorders (20 sources) Gastroesophageal reflux disease without esophagitis; Translations: [Gastro-esophageal reflux disease without esophagitis] Onset: 05-23-2023 05-23-2023 Chronic Mood disorders (18 sources) Single episode of major depression in full remission; Translations: [Major depressive disorder, single episode, in full remission] Onset: 02-29-2024 02-29-2024 Chronic Osteoporosis (20 sources) Postmenopausal osteoporosis; Translations: [Age-related osteoporosis without current pathological fracture] Onset: 06-11-2023 06-11-2023 Chronic Residual codes; unclassified (1 source) Family history of malignant neoplasm of prostate; Translations: [FAMILY HX MALIG NEOPLASM PROSTATE] Onset: 07-25-2022 Episodic Substance-related disorders (19 sources) History of opioid abuse; Translations: [Opioid [...] [IRON DEFICIENCY ANEMIA UNSPECIFIED] Onset: 12-03-2021 Episodic Deficiency and other anemia (16 sources) Iron deficiency anemia; Translations: [Iron deficiency anemia, unspecified] Onset: 02-29-2024 02-29-2024 Episodic Essential hypertension (20 sources) Essential (primary) hypertension; Translations: [Benign hypertension] Onset: 10-23-2021 Resolved: 03-02-2024 06-03-2023 Chronic Gout and other crystal arthropathies (20 sources) Gout; Translations: [Gout, unspecified] Onset: 06-03-2023 Resolved: 09-02-2023 06-03-2023 Chronic Heart valve disorders (17 sources) Heart murmur; Translations: [Cardiac murmur, unspecified] Onset: 03-02-2024 03-02-2024 Episodic Intestinal obstruction without hernia (2 sources) Other intestinal obstruction; Translations: [Unspecified intestinal obstruction, unspecified as to partial versus complete obstruction] Onset: 01-09-2017 Episodic Mood disorders (20 sources) Mood disorders Onset: 06-11-2023 06-11-2023 Nausea and vomiting (1 source) Nausea with vomiting, unspecified; Translations: [NAUSEA WITH VOMITING UNSPECIFIED] Onset: 10-23-2021 Episodic Nutritional deficiencies (14 sources) Vitamin deficiency; Translations: [Vitamin deficiency, unspecified] Onset: 04-05-2024 04-05-2024 Episodic Other aftercare (1 source) Other penitentiary (current) drug therapy; Translations: [OTH RESIDENTIAL CURRENT DRUG THERAPY] Onset: 10-23-2021 Episodic Other aftercare (1 source) senior living (current) use of aspirin; Translations: [RESIDENTIAL CURRENT USE OF ASPIRIN] Onset: 10-23-2021 Episodic [...] IN RIGHT FOOT] Onset: 08-06-2021 Episodic Other connective tissue disease (14 sources) Pain in bilateral legs; Translations: [Pain in right leg] Onset: 04-05-2024 04-05-2024 Episodic Other connective tissue disease (14 sources) Nocturnal muscle cramp; Translations: [Cramp and spasm] Onset: 04-05-2024 04-05-2024 Episodic Other infections; including parasitic (19 sources) Infestation by Sarcoptes scabiei linden hominis; Translations: [Scabies] Onset: 08-19-2023 Resolved: 10-12-2023 10-12-2023 Episodic Other non-traumatic joint disorders (20 sources) Multiple joint pain; Translations: [Pain in unspecified joint] Onset: 06-11-2023 06-11-2023 Episodic Other nutritional; endocrine; and metabolic disorders (20 sources) Body mass index 25-29 - overweight; Translations: [Overweight] Onset: 10-12-2023 10-12-2023 Episodic Other screening for suspected conditions (not mental disorders or infectious disease) (20 sources) Encounter for screening mammogram for malignant neoplasm of breast; Translations: [Encounter for screening for malignant neoplasm of cervix] Onset: 01-06-2022 Episodic Other upper respiratory infections (20 sources) Upper respiratory infection; Translations: [Acute upper respiratory infection, unspecified] Onset: 04-29-2023 Resolved: 06-16-2024 04-29-2023 Episodic Residual codes; unclassified (4 sources) Asymptomatic [...] (SUSP) EXPOS COVID-19] Onset: 02-12-2022 Viral infection (20 sources) Disease caused by 2019-nCoV; Translations: [COVID-19] Onset: 04-29-2023 Resolved: 09-02-2023 04-29-2023 Episodic Results Test Name Value Interpretation Reference Range Facility XR FOOT RT MIN 3Von 10-07-[address] [address] XRay Report Signed Patient: SOFIE ADRIAN MR#: [id number] : 1955 Acct:[id number] Age/Sex: 69 / F ADM Date: 10/06/24 Loc: RAD Attending Dr: Mercedes Cesar D.P.M. Ordering Physician: Mercedes Cesar D.P.M. Date of Service: 10/06/24 Procedure(s): XR foot RT min 3V Accession Number(s): [id number] cc: Rosario Amezquita CORRECTIONS OFFICER; Mercedes Cesar D.P.M. [facility] [place] [address] Patient Name: SOFIE ADRIAN MRN: [facility]:[id number] date: 1955 Sex: F Assigned Patient Location: [facility] Current Patient Location: [facility] Accession/Order Number: [id number] Exam Date: 10/06/2024 15:21 Report Date: 10/06/2024 15:23 At the request of: MERCEDES CESAR DPJf Procedure: XR foot RT min 3V RIGHT FOOT - 3 views CLINICAL HISTORY: Swelling at first distal interphalangeal joint for one month. COMPARISON: Right foot 06/03/2023 FINDINGS: Soft tissue swelling is noted involving the first digit. First MTP hardware without radiographic complication. Plantar spurring. No acute bony process. Presumed posttraumatic changes involving the heads of the proximal phalanx of the second third and likely fourth digits. Degenerative changes involving the IP joint of the first digit without bony erosions. XR/XR foot RT min 3V IMPRESSION: SOFT TISSUE SWELLING INVOLVING THE FIRST DIGIT WITHOUT ACUTE BONY PROCESS OR HARDWARE COMPLICATION. Impression dictated by: Rigo Cesar Jr., D.O. 10/06/2024 3:23 PM Dictation Location: [place] [address] Electronically authenticated by: [id number] Y Date: 10/06/2024 15:23 Dictated By: Rigo Cesar M.D. Signed By: 10/06/24 1526 DD/ 1523 TD/TT: Body Artist: [facility] Radiology, Radiologi MD susy - 10/06/2024 [place] [address] XRay Report Signed Patient: SOFIE ADRIAN MR#: [id number] : 1955 Acct:[id number] Age/Sex: 69 / F ADM Date: 10/06/24 Loc: RAD Attending Dr: Mercedes Cesar D.P.M. Ordering Physician: Mercedes Cesar D.P.M. Date of Service: 10/06/24 Procedure(s): XR foot RT min 3V Accession Number(s): [id number] cc: Rosario Amezquita CORRECTIONS OFFICER; Mercedes Cesar D.P.M. [place] [address] Patient Name: SOFIE ADRIAN MRN: [id number] date: 1955 Sex: F Assigned Patient Location: [facility] Current Patient Location: [facility] Accession/Order Number: [id number] Exam Date: 10/06/2024 15:21 Report Date: 10/06/2024 15:23 At the request of: MERCEDES CESAR DPJf Procedure: XR foot RT min 3V RIGHT FOOT - 3 views CLINICAL HISTORY: Swelling at first distal interphalangeal joint for one month. COMPARISON: Right foot 06/03/2023 FINDINGS: Soft tissue swelling is noted involving the first digit. First MTP hardware without radiographic complication. Plantar spurring. No acute bony process. Presumed posttraumatic changes involving the heads of the proximal phalanx of the second third and likely fourth digits. Degenerative changes involving the IP joint of the first digit without bony erosions. XR/XR foot RT min 3V IMPRESSION: SOFT TISSUE SWELLING INVOLVING THE FIRST DIGIT WITHOUT ACUTE BONY PROCESS OR HARDWARE COMPLICATION. Impression dictated by: Rigo Cesar Jr., D.O. 10/06/2024 3:23 PM Dictation Location: [place] [address] Electronically authenticated by: [id number] Y Date: 10/06/2024 15:23 Dictated By: Rigo Cesar M.D. Signed By: 10/06/24 1526 DD/ 1523 TD/TT: Body Artist: [facility] Study observation (narrative) [facility] XR FOOT RT MIN 3VOrdered By: Radiologist Radiology on 10-06-2024 [facility] Work Phone: XR DEXA AXIAL SKELETONon [address] [address] XRay Report Signed Patient: SOFIE ADRIAN MR#: [id number] : 1955 Acct:[id number] Age/Sex: 68 / F ADM Date: 05/26/24 Loc: RAD Attending Dr: Rosario Amezquita CORRECTIONS OFFICER Ordering Physician: Rosario Amezquita NP Date of Service: 05/26/24 Procedure(s): XR DEXA axial skeleton Accession Number(s): [id number] cc: Rosario Amezquita NP [address] [address] Patient Name: SOFIE ADRIAN MRN: [id number] date: 1955 Sex: F Assigned Patient Location: [facility] Current Patient Location: [facility] Accession/Order Number: [id number] Exam Date: 05/26/2024 10:00 Report Date: 05/26/2024 12:26 At the request of: ROSARIO AMEZQUITA Procedure: XR DEXA axial skeleton EXAMINATION: XR DEXA axial skeleton HISTORY: Osteoporosis COMPARISON: DEXA bone densitometry 01/09/2022 TECHNIQUE: Dual-energy X-ray absorptiometry (DXA) was performed. FINDINGS: FOREARM ANALYSIS: Average bone mineral density is 0.549 g/cm2. T-score (standard deviation relative to young adult mean): -2.3 . -0.2% change since prior study. HIP ANALYSIS: Lowest bone mineral density is within the left femoral neck, 0.743 g/cm2. T-score (standard deviation relative to young adult mean): -2.1 . +1.0% change since prior study. XR/XR DEXA axial skeleton IMPRESSION: World Health Organization Classification: Osteopenia - Moderate Fracture Risk FRAX: Cannot be calculated. Pharmacologic treatment recommendations * No uniform recommendation applies to all patients. Management plans must be individualized. * Consider initiating pharmacologic treatment in postmenopausal women and men >= 50 years of age who have the following: Primary fracture prevention: * T-score <= - 2.5 at the femoral neck, total hip, lumbar spine, 33% radius (some uncertainty with existing data) by DXA. * Low bone mass (osteopenia: T-score between - 1.0 and - 2.5) at the femoral neck or total hip by DXA with a 10-year hip fracture risk >= 3% or a 10-year major osteoporosis-related fracture risk >= 20% (i.e., clinical vertebral, hip, forearm, or proximal humerus) based on the [place]-adapted FRAXregistered model. Secondary fracture prevention: * Fracture of the hip or vertebra regardless of BMD [4, 5]. * Fracture of proximal humerus, pelvis, or distal forearm in persons with low bone mass (osteopenia: T-score between - 1.0 and - 2.5). The decision to treat should be individualized in persons with a fracture of the proximal humerus, pelvis, or distal forearm who do not have osteopenia or low BMD [12, 13]. Kana MS, Luisa SL, Wilmer KL, Amy EM, Gregorio KG, AJ, Mikael ES. The clinician's guide to prevention and treatment of osteoporosis. Osteoporos Int. 2021;33(10):2162-4326. doi: 10.1007/i58947-495-43283-z. Epub 2021Aug 22. Erratum in: Osteoporos Int. 2021Nov 21;: PMID: 56236768; PMCID: [id number]. Electronically authenticated by: ISAIAH ROJAS Date: 05/26/2024 12:26 Dictated By: Isaiah Rojas M.D. Signed By: 05/26/24 1228 DD/ 1226 TD/TT: Body Artist: [facility] Radiology, Radiologi MD susy - 05/26/2024 [place] [address] XRay Report Signed Patient: SOFIE ADRIAN MR#: [id number] : 1955 Acct:[id number] Age/Sex: 68 / F ADM Date: 05/26/24 Loc: RAD Attending Dr: Rosario Amezquita NP Ordering Physician: Aichholz,Rosario CORRECTIONS OFFICER Date of Service: 05/26/24 Procedure(s): XR DEXA axial skeleton Accession Number(s): [id number] cc: Rosario Amezquita NP [place] [id number] Patient Name: SOFIE ADRIAN MRN: [id number] date: 1955 Sex: F Assigned Patient Location: RAD Current Patient Location: RAD Accession/Order Number: [id number] Exam Date: 05/26/2024 10:00 Report Date: 05/26/2024 12:26 At the request of: ROSARIO AMEZQUITA Procedure: XR DEXA axial skeleton EXAMINATION: XR DEXA axial skeleton HISTORY: Osteoporosis COMPARISON: DEXA bone densitometry 01/09/2022 TECHNIQUE: Dual-energy X-ray absorptiometry (DXA) was performed. FINDINGS: FOREARM ANALYSIS: Average bone mineral density is 0.549 g/cm2. T-score (standard deviation relative to young adult mean): -2.3 . -0.2% change since prior study. HIP ANALYSIS: Lowest bone mineral density is within the left femoral neck, 0.743 g/cm2. T-score (standard deviation relative to young adult mean): -2.1 . +1.0% change since prior study. XR/XR DEXA axial skeleton IMPRESSION: World Health Organization Classification: Osteopenia - Moderate Fracture Risk FRAX: Cannot be calculated. Pharmacologic treatment recommendations * No uniform recommendation applies to all patients. Management plans must be individualized. * Consider initiating pharmacologic treatment in postmenopausal women and men >= 50 years of age who have the following: Primary fracture prevention: * T-score <= - 2.5 at the femoral neck, total hip, lumbar spine, 33% radius (some uncertainty with existing data) by DXA. * Low bone mass (osteopenia: T-score between - 1.0 and - 2.5) at the femoral neck or total hip by DXA with a 10-year hip fracture risk >= 3% or a 10-year major osteoporosis-related fracture risk >= 20% (i.e., clinical vertebral, hip, forearm, or proximal humerus) based on the US-adapted FRAXregistered model. Secondary fracture prevention: * Fracture of the hip or vertebra regardless of BMD [4, 5]. * Fracture of proximal humerus, pelvis, or distal forearm in persons with low bone mass (osteopenia: T-score between - 1.0 and - 2.5). The decision to treat should be individualized in persons with a fracture of the proximal humerus, pelvis, or distal forearm who do not have osteopenia or low BMD [12, 13]. Kana MS, Luisa SL, Wilmer KL, Amy EM, Gregorio KG, AJ, Mikael ES. The clinician's guide to prevention and treatment of osteoporosis. Osteoporos Int. 2021;33(10):1859-2734. doi: 10.1007/b83728-469-32512-l. Epub 2021Aug 22. Erratum in: Osteoporos Int. 2021Nov 21;: PMID: 98456485; PMCID: [id number]. Electronically authenticated by: ISAIAH ROJAS Date: 05/26/2024 12:26 Dictated By: Isaiah Rojas M.D. Signed By: 05/26/24 1228 DD/ 1226 TD/TT: Body Artist: [facility] Study observation (narrative) [facility] XR DEXA AXIAL SKELETONOrdere d By: Radiologist Radiology on 05-26-2024 [facility] Work Phone: No Panel Informationon 05-10 Interpretation and review of laboratory results Normal [facility] Rapid Influenza A Ag Negative Negative, Indeterminate [facility] Rapid Influenza B Ag Negative Negative, Indeterminate [facility] MG MAMM SCREEN 3D KARLOS CADon 07-21-2022 MG MAMM SCREEN 3D KARLOS CAD Patient: SOFIE ADRIAN Exam Date: 07/21/2022 : 1955 Gender:F Ordering : MONIQUE AMEZQUITA CNP Admission #: [id number] Family : Order #: [id number] CLICK HERE TO VIEW EXAM RADIOLOGY REPORT [...] prostate cancer at age 75. LOCATION: [facility] BREAST COMPOSITION: Scattered areas fibroglandular density. [...] M.D. on 07/21/2022 at 12:20 Normal [facility] Covid-19 PCR (CVDTB)on 01-25 SARS-CoV-2 (COVID-19) RNA BOBO+probe Ql (Unsp spec) Not detected Normal NOT DETECTED [facility] Comment on above: Result Comment: This test is not yet bryson roved or cleared by the [place] FDA. When there are no FDA-approved or cleared tests available, and other criteria are met, FDA can make tests available under an emergency access mechanism called an Emergency Use Authorization (EUA). The EUA for this test is supported by the Recycler of Health and Human Service's (HHS's) declaration [...] with SARS-CoV-2. Performed By: #### C VDTB ####[facility] [address] [place] [address]Dr. Rashida Carcamo PAP ACOG PANEL 2: 30 to 65on 01-14-2022 . . Normal [facility] Comment on above: Performed By: #### [id number] ####[facility] [address] [place] [id number] Carcamo Age Gdln ACOG Testing Comment Normal [facility] Comment on above: Result Comment: <21 or >65 or no age pro vided Performed By: #### 4 [id number] ####[facility] [address] [place], [place] [address]DrDallas Carcamo DIAGNOSIS: Comment [facility] Comment on above: Result Comment: NEGATIVE FOR INTRAEPITHE LIAL LESION OR MALIGNANCY. CELLULAR CHANGES ASSOCIATED WITH ATROPHY ARE PRESENT. THIS SPECIMEN WAS RESCREENED PART OF OUR NURSE TRANSPLANT PROGRAM. Performed By: #### 4 [id number] ####[place] [address]DrDallas Carcamo Methodology: Comment [facility] Comment on above: Result Comment: This liquid based ThinPr ep(R) pap test was screened with the use of an image guided system. Performed By: #### 4 [id number] ####[facility] [address] [place], [place] [address]DrDallas Carcamo Note: Comment [facility] Comment on above: Result Comment: The Pap smear is a scree sena test designed to aid in the detection of premalignant and malignant conditions of the uterine cervix. It is not a diagnostic procedure and should not be used as the sole means of detecting cervical cancer. Both false-positive and false-negative reports do occur. . Performed By: #### [id number] ####[facility] [address] [place] [address]DrDallas Carcamo Performed by: Comment [facility] Comment on above: Result Comment: Sukumar Per[employer] nologist (ASCP) Performed By: #### [id number] ####[facility] [address] [place] [address]DrDallas Carcamo QC reviewed by: Comment Normal [facility] Comment on above: Result Comment: Shaila Mujica, Neymar chappell Middleware Architect (ASCP) Performed By: #### 4 [id number] ####[facility] [address] [place] [address]Dr. Rashida Carcamo Specimen adequacy: Comment Normal [facility] Comment on above: Result Comment: Satisfactory for evaluat ion. Endocervical component may not be distinguished in cases of atrophy. Performed By: #### 4 [id number] ####[facility] Xlideirctx[address] [place] [address]Dr. Rashida Carcamo XR DEXA BONE DENSITYon 01-09 [...] ISAIAH ROJAS Date: 2022-01-09 10:53 Normal [facility] CBC W MANUAL DIFFon 01-07-20 22 ATYPICAL LYMPH # Normal [facility] Comment on above: Performed By: #### CBCBONY ####[facility] Zsixvbknaw1609 [place] [address]Dr. Rashida Carcamo ATYPICAL LYMPH % Normal [facility] Comment on above: Performed By: #### CBCBONY ####[facility] Lmwmpfiyrx6693 [place] [address]Dr. Yilan Carcamo BAND # Normal 0.0-0.3 [facility] Comment on above: Performed By: #### CBCMAN ####[facility] Hkynhkjfws6089 [place] [address]Dr. Yilan Carcamo BAND % Normal 0-5 [facility] Comment on above: Performed By: #### CBCBONY ####[facility] Jphgeevwxl4886 [place] [id number]. Rashida Carcamo BASOM # 0.00 103/ul Normal 0.00-0.10 [facility] Comment on above: Performed By: #### CBCMAN ####[facility] Waszbynlnu4966 [place] [address]Dr. Rashida Carcamo BASOM % 0.0 % Critically low 0.2-2.0 [facility] Comment on above: Performed By: #### CBCMAN ####[facility] Jspgrolpme9661 [place] [address]Dr. Rashida Carcamo BLAST # Normal [facility] Comment on above: Performed By: #### CBCMAN ####[facility] Ncngxuxcko1961 [place] [address]Dr. Rashida Carcamo BLAST % Normal [facility] Comment on above: Performed By: #### CBCMAN ####[facility] Gwqosqkpky4799 [place] [address]Dr. Rashida Carcamo CORRECTED WBC Normal 4.0-11.0 [facility] Comment on above: Performed By: #### CBCMAN ####[facility] Johpeuvzuk7012 [place] [address]Dr. Rashida Carcamo EOS # 0.00 103/ul Normal 0.00-0.70 [facility] Comment on above: Performed By: #### CBCMAN ####[facility] Tahszipkrk3029 [place] [address]Dr. Rashida Carcamo EOS% 0.0 % Critically low 0.9-7.0 [facility] Comment on above: Performed By: #### CBCMAN ####[facility] Amkpoztlqb3283 [place] [address]Dr. Rashida Carcamo HCT 37.0 % Normal 36.0-48.0 [facility] Comment on above: Performed By: #### CBCMAN ####[facility] Kjfefzemyp1468 [place] [address]Dr. Rashida Carcamo HGB 12.0 g/dl Normal 12.0-16.0 [facility] Comment on above: Performed By: #### CBCBONY ####[facility] Xkrmcgwdzu1426 [place] [address]Dr. Rashida Carcamo LYMPHM # 0.70 103/ul Critically low 1.20-3.80 [facility] Comment on above: Performed By: #### CBCBONY ####[facility] Aqqefzncfp9091 [place] [address]Dr. Rashida Carcamo LYMPHM% 25.0 % Normal 20.5-60.0 [facility] Comment on above: Performed By: #### CBCBONY ####[facility] Uffodpcokv0030 [place] [address]Dr. Rashida Carcamo MCH 30.4 pg Normal 26.7-34.0 [facility] Comment on above: Performed By: #### CBCBONY ####[facility] Usdilmthqq6121 [place] [address]Dr. Rashida Carcamo MCHC 32.4 g/dl Normal 29.9-35.2 [facility] Comment on above: Performed By: #### CBCBONY ####[facility] Ycsskancfc8147 [place] [address]Dr. Rashida Carcamo MCV 93.7 fL Normal 81.0-99.0 [facility] Comment on above: Performed By: #### CBCBONY ####[facility] Iydglozxlw9636 [place] [address]Dr. Rashida Carcamo METAMYELOCYTE # Normal [facility] Comment on above: Performed By: #### CBCBONY ####[facility] Bthnwgstjp2678 [place] [address]Dr. Rashida Carcamo METAMYELOCYTE % Normal [facility] Comment on above: Performed By: #### CBCBONY ####[facility] Znemgvxguq6281 [place] [address]Dr. Rashida Carcamo MONOM# 0.22 103/ul Critically low 0.30-0.80 [facility] Comment on above: Performed By: #### CBCBONY ####[facility] Yfeizrfttw5307 [place], [place] [address]Yv. Rashida Carcamo MONOM% 8.0 % Normal 1.7-12.0 [facility] Comment on above: Performed By: #### CBCBONY ####[facility] Vjntjvubni7946 [place], [place] [address]Rh. Rashida Carcamo MPV 10.8 fL Normal 9.5-13.5 [facility] Comment on above: Performed By: #### CBCBONY ####[facility] Cdvxbspnbh7015 [place], [place] [address]Og. Rashida Carcamo MYELOCYTE # Normal [facility] Comment on above: Performed By: #### CBCBONY ####[facility] Bibstqeudn9961 [place], [place] [address]Hx. Rashida Carcamo MYELOCYTE % Normal [facility] Comment on above: Performed By: #### CBCBONY ####[facility] Uzjtocrsyd7716 [place] [id number]. Rashida Carcamo NRBC Normal [facility] Comment on above: Performed By: #### CBCBONY ####[facility] Bfzhpytpae9428 [place] [address]Dr. Rashida Carcamo PLT 154 103/ul Normal 150-450 [facility] Comment on above: Performed By: #### CBCBONY ####[facility] Motxlixfrv7545 [place] [address]Dr. Rashida Carcamo RBC 3.95 106/ul Critically low 4.20-5.40 [facility] Comment on above: Performed By: #### CBCBONY ####[facility] Lurlnhrdsr8571 [place] [address]Dr. Rashida Carcamo RDW 13.2 % Normal 11.0-15.0 [facility] Comment on above: Performed By: #### CBCBONY ####[facility] Ofbctenwpz9847 [place] [address]Dr. Rashida Carcamo SEG # 1.88 103/ul Normal 1.40-6.50 [facility] Comment on above: Performed By: #### CBCMAN ####[facility] Sfmklonfim9525 [place] [address]Dr. Rashida Carcamo SEG % 67.0 % Normal 43.0-75.0 [facility] Comment on above: Performed By: #### CBCMAN ####[facility] Omqveewteo7659 [place] [address]Dr. Rashida Carcamo WBC 2.8 103/ul Critically low 4.0-11.0 [facility] Comment on above: Performed By: #### CBCMAN ####[facility] Futbrumflf50[address] [place], [place] [address]Dr. Rashida Carcamo CBC AUTO DIFFon 12-03-2021 BASO # 0.1 103/ul Normal 0.0-0.1 [facility] Comment on above: Performed By: #### CBC ####[facility] Peyqzksbae13[address] [place], [place] [address]Dr. Rashida Carcamo Basophils/100 WBC (Bld) 1.9 % Normal 0.2-2.0 [facility] Comment on above: Performed By: #### CBC ####[facility] Bxkzhdqsfv4[address] [place], [place] [address]Dr. Rashida Carcamo EO # 0.2 103/ul Normal 0.0-0.7 [facility] Comment on above: Performed By: #### CBC ####[facility] Ebeaydhesv4968[address] [place], [place] [address]Dr. Rashida Carcamo Eosinophils/100 WBC (Bld) 5.6 % Normal 0.9-7.0 [facility] Comment on above: Performed By: #### CBC ####[facility] Aqvsfjrltb64[address] [place], [place] [address]Dr. Rashida Carcamo Erythrocyte distribution width (RBC) [Ratio] 13.6 % Normal 11.0-15.0 [facility] Comment on above: Performed By: #### CBC ####[facility] Bgttcuwtxt[address] [place], [place] [address]DrDallas Carcamo Hematocrit (Bld) [Volume fraction] 38.0 % Normal 36.0-48.0 [facility] Comment on above: Performed By: #### CBC ####[facility] Yilzrkjrpd7834 [address] Rashida Carcamo Hemoglobin (Bld) [Mass/Vol] 11.7 g/dL Critically low 12.0-16.0 [facility] Comment on above: Performed By: #### CBC ####[facility] Hcduytqkmn[address] [place] [address]. Rashida Carcamo IG # 0.00 10e3/ul Normal 0.00-0.03 [facility] Comment on above: Performed By: #### CBC ####[facility] Zfymbjafob[address] [place] [address]. Keniaflory Carcamo IG % 0.0 % Normal 0.0-0.5 [facility] Comment on above: Performed By: #### CBC ####[facility] Bjhstnarwi[address] [place] [address]. Rashida Carcamo LYMPH # 0.8 103/ul Critically low 1.2-3.8 [facility] Comment on above: Performed By: #### CBC ####[facility] Fviuucflde[address] [place] [address]. Rashida Carcamo Lymphocytes/100 WBC (Bld) 29.3 % Normal 20.5-60.0 [facility] Comment on above: Performed By: #### CBC ####[facility] Rksphrtzbo[address] [place] [address]. Rashida Carcamo MANUAL DIFF REQ NO Normal [facility] Comment on above: Performed By: #### CBC ####[facility] Qkaczwmbgj[address] [place] [address]. Rashida Carcamo MCH (RBC) [Entitic mass] 29.7 pg Normal 26.7-34.0 [facility] Comment on above: Performed By: #### CBC ####[facility] Nspalctwxv840[address] [place] [address]. Rashida Carcamo MCHC (RBC) [Mass/Vol] 30.8 g/dL Normal 29.9-35.2 [facility] Comment on above: Performed By: #### CBC ####[facility] Oixizxieex1628 [place] [address]DrDallas Rashida Carcamo MCV (RBC) [Entitic vol] 96.4 fL Normal 81.0-99.0 [facility] Comment on above: Performed By: #### CBC ####[facility] Tusebeqqba0322 [place] [address]DrDallas Carcamo MONO # 0.2 103/ul Critically low 0.3-0.8 [facility] Comment on above: Performed By: #### CBC ####[facility] Tusfxdwlpr2334 [place] [address]DrDallas Carcamo Monocytes/100 WBC (Bld) 7.5 % Normal 1.7-12.0 [facility] Comment on above: Performed By: #### CBC ####[facility] Mjsgbhhyto[address] [place], [place] [address]Dr. Rashida Carcamo NEUT # 1.5 103/ul Normal 1.4-6.5 [facility] Comment on above: Performed By: #### CBC ####[facility] Rahewndags[address] [place], [place] [address]DrDallas Carcamo Neutrophils/100 WBC (Bld) 55.7 % Normal 43.0-75.0 [facility] Comment on above: Performed By: #### CBC ####[facility] Liyzszcqoz0206 [place] [address]DrDallas Carcamo Platelet mean volume (Bld) [Entitic vol] 10.6 fL Normal 9.5-13.5 [facility] Comment on above: Performed By: #### CBC ####[facility] Ugrnkxzatu59[address] [place], [place] [address]DrDallas Carcamo PLT 165 103/ul Normal 150-450 [facility] Comment on above: Performed By: #### CBC ####[facility] Mgmbdrlpij[address] [place], [place] [address]DrDallas Carcamo RBC 3.94 106/ul Critically low 4.20-5.40 [facility] Comment on above: Performed By: #### CBC ####[facility] Kaomvwbcnu5286 [place] [address]Dr. Rashida Carcamo WBC 2.7 103/ul Critically low 4.0-11.0 [facility] Comment on above: Performed By: #### CBC ####[facility] Zmwqwetuop1423 [place] [address]Dr. Rashida Carcamo IRONon 12-03-2021 Iron [Mass/Vol] 85.0 ug/dL Normal 50.0-170.0 [facility] Comment on above: Performed By: #### IRON ####[facility]ital Nvryhjgftm[address] [place], [place] [address]Dr. Rashida Carcamo Basic metabolic 2000 panelon 10-22-2021 Anion gap [Moles/Vol] 16 mmol/L Normal 9-18 [facility] Comment on above: Order Comment: Specimen Type: BLOOD SPEC IMEN Ordering Facility: [facility] Address: [address] [place] [address] Performed By: #### 2 777-1, , 60329-7 #### [facility] CLIA [id number] [address] [place] [address] [place] Calcium [Mass/Vol] 9.5 mg/dL Normal 8.5-10.2 [facility] Comment on above: Order Comment: Specimen Type: BLOOD SPEC IMEN Ordering Facility: [facility] Address: [address] [place], [place] [id number] Performed By: #### 2 777-1, , 77342-1 #### [facility] CLIA [id number] [address] [place] [address] [place] Chloride [Moles/Vol] 100 mmol/L Normal 97-105 [facility] Comment on above: Order Comment: Specimen Type: BLOOD SPEC IMEN Ordering Facility: [facility] Address: [address] [place], [place] [id number] Performed By: #### 2 777-1, , #### [facility] CLIA [id number] [address] [place] [address] [place] CO2 [Moles/Vol] 29 mmol/L Normal 22-30 [facility] Comment on above: Order Comment: Specimen Type: BLOOD SPEC IMEN Ordering Facility: [facility] Address: [address] [place] [address] Performed By: #### 2 777-1, , #### [facility] CLIA [id number] [address] [place] [address] [place] Creatinine [Mass/Vol] 0.58 mg/dL Normal 0.58-0.96 [facility] Comment on above: Order Comment: Specimen Type: BLOOD SPEC IMEN Ordering Facility: [facility] Address: [address] [place] [address] Performed By: #### 2 777-1, , #### [facility] CLIA [id number] [address] [place] [address] OF [facility] ESTIMATED GLOMERULAR FILTRATION RATE 100 mL/min/1.73m??? Normal >=60 [facility] Comment on above: Order Comment: Specimen Type: BLOOD SPEC IMEN Ordering Facility: [facility] Address: [address] [place] [address] Result Comment: Humaira mated Glomerular Filtration Rate [...] GFR. Performed By: #### 2 777-1, , 87152-7 #### [facility] CLIA [id number] [address] [place] [address] [place] Glucose [Mass/Vol] 90 mg/dL Normal 74-99 [facility] Comment on above: Order Comment: Specimen Type: BLOOD SPEC IMEN Ordering Facility: [facility] Address: [address] [place], [place] [id number] Result Comment: The [place] [employer] (ADA) provides guidance for cutoff [...] Standards of Medical Care in Diabetes 2016, [place] [employer]. Diabetes Care. 2016.39(Suppl 1). Performed By: #### 2 777-1, , 14113-4 #### [facility] CLIA [id number] [address] [place] [address] [place] Potassium [Moles/Vol] 3.2 mmol/L Low 3.7-5.1 [facility] Comment on above: Order Comment: Specimen Type: BLOOD SPEC IMEN Ordering Facility: [facility] Address: [address] [place], [place] [phone] Performed By: #### 2 777-1, , 38558-5 #### [facility] CLIA [id number] [address] [place] [address] [place] Sodium [Moles/Vol] 145 mmol/L High 136-144 [facility] Comment on above: Order Comment: Specimen Type: BLOOD SPEC IMEN Ordering Facility: [facility] Address: [address] [place], [place] [id number] Performed By: #### 2 777-1, , 72258-3 #### [facility] CLIA [id number] [address] [place] [address] [place] Urea nitrogen [Mass/Vol] 6 mg/dL Low 7-21 [facility] Comment on above: Order Comment: Specimen Type: BLOOD SPEC IMEN Ordering Facility: [facility] Address: [address] [place] [address] Performed By: #### 2 777-1, 76993-3, 75926-0 #### [facility] CLIA [id number] [address] [place] [address] [place] CBC panel Auto (Bld)on 10-22 Erythrocyte distribution width (RBC) [Ratio] 13.6 % Normal 11.5-15.0 [facility] Comment on above: Order Comment: Specimen Type: BLOOD SPEC IMEN Ordering Facility: [facility] Address: [address] [place] [address] Performed By: #### 5 8410-2 #### [facility] CLIA [id number] [address] [place] [address] [place] Hematocrit (Bld) [Volume fraction] 40.4 % Normal 36.0-46.0 [facility] Comment on above: Order Comment: Specimen Type: BLOOD SPEC IMEN Ordering Facility: [facility] Address: [address] [place], [place] [address] Performed By: #### 5 8410-2 #### [facility] CLIA [id number] [address] [place] [address] [place] Hemoglobin (Bld) [Mass/Vol] 12.9 g/dL Normal 11.5-15.5 [facility] Comment on above: Order Comment: Specimen Type: BLOOD SPEC IMEN Ordering Facility: [facility] Address: [address] [place] [address] Performed By: #### 5 8410-2 #### [facility] CLIA [id number] [address] [place] [address] MCH (RBC) [Entitic mass] 28.7 pg Normal 26.0-34.0 [facility] Comment on above: Order Comment: Specimen Type: BLOOD SPEC IMEN Ordering Facility: [facility] Address: [address] [place] [address] Performed By: #### 5 8410-2 #### [facility] CLIA [id number] [address] [place] [address] OF [place] MCHC (RBC) [Mass/Vol] 31.9 g/dL Normal 30.5-36.0 [facility] Comment on above: Order Comment: Specimen Type: BLOOD SPEC IMEN Ordering Facility: [facility] Address: [address] [place] [address] Performed By: #### 5 8410-2 #### [facility] CLIA [id number] [address] [place] [address] [place] MCV (RBC) [Entitic vol] 90.0 fL Normal 80.0-100.0 [facility] Comment on above: Order Comment: Specimen Type: BLOOD SPEC IMEN Ordering Facility: [facility] Address: [address] [place] [address] Performed By: #### 5 8410-2 #### [facility] CLIA [id number] [address] [place] [address] [place] Nucleated RBC (Bld) [#/Vol] 10*3/uL Normal <0.01 [facility] Comment on above: Order Comment: Specimen Type: BLOOD SPEC IMEN Ordering Facility: [facility] Address: [address] [place], [place] [address] Performed By: #### 5 8410-2 #### [facility] CLIA [id number] [address] [place] [address] [place] Platelet mean volume (Bld) [Entitic vol] 10.8 fL Normal 9.0-12.7 [facility] Comment on above: Order Comment: Specimen Type: BLOOD SPEC IMEN Ordering Facility: [facility] Address: [address] [place], [place] [address] Performed By: #### 5 8410-2 #### [facility] CLIA [id number] [address] [place] [address] [place] Platelets (Bld) [#/Vol] 155 10*3/uL Normal 150-400 [facility] Comment on above: Order Comment: Specimen Type: BLOOD SPEC IMEN Ordering Facility: [facility] Address: [address] [place], [place] [address] Performed By: #### 5 8410-2 #### [facility] CLIA [id number] [address] [place] [address] [place] RBC (Bld) [#/Vol] 4.49 10*6/uL Normal 3.90-5.20 [facility] Comment on above: Order Comment: Specimen Type: BLOOD SPEC IMEN Ordering Facility: [facility] Address: [address] [place], [place] [address] Performed By: #### 5 8410-2 #### [facility] CLIA [id number] [address] [place] [address] [place] WBC (Bld) [#/Vol] 2.98 10*3/uL Low 3.70-11.00 [facility] Comment on above: Order Comment: Specimen Type: BLOOD SPEC IMEN Ordering Facility: [facility] Address: [address] [place] [address] Performed By: #### 5 8410-2 #### [facility] CLIA [id number] [address] [place] [address] [place] CNDSon 10-22-2021 CNDS HNO ID: [id number] Author: Joceline Liang MD Service: General Surgery [...] old female who presents as transfer [facility] for concern for SBO. She has [...] has been waiting to be transferred to [facility] since then[facility] Since presenting to [facility] hospital on day 1 of her [...] was tolerating PO. She was advanced to GIS and discharged home later that day. ? [...] PO QD SIGNATURE: Joceline Liang MD PAGER: [phone] DATE: October 22, 2021 TIME: 11:22 AM Normal [facility] Magnesium SerPl-mCncon 10-22 Magnesium [Mass/Vol] 1.6 mg/dL Low 1.7-2.3 [facility] Comment on above: Order Comment: Specimen Type: BLOOD SPEC IMEN Ordering Facility: [facility] Address: [address] [place] [address] Performed By: #### 2 777-1, 18295-1, 35611-6 #### [facility] CLIA [id number] [address] [place] [address] OF [facility] Phosphate SerPl-mCncon 10-22 Phosphate [Mass/Vol] 3.0 mg/dL Normal 2.7-4.8 [facility] Comment on above: Order Comment: Specimen Type: BLOOD SPEC IMEN Ordering Facility: [facility] Address: [address] [place] [address] Performed By: #### 2 777-1, 20431-7, 10964-8 #### [facility] CLIA [id number] [address] [place] [address] [place] VDUVLSon 10-21-2021 VDUVLS Non-Invasive Vascula r [facility] J35 Lower Extremity Venous Duplex Bilateral/Complete [...] physician: Pavithra Barker MD, NOELLE, RVT Final [id number] oDynamicsSISUID See Link below for Image Normal [facility] XR SMALL BOWEL SERIESon 09-26 XR [...] small bowel. IMPRESSION: RESOLVING SMALL BOWEL OBSTRUCTION. Body Artist: GIO Transcribe Date/Time: Oct 21 2021 2:44P Dictated by : JESSICA ADRIAN MD This examination was interpreted and the report reviewed and electronically signed by: JESSICA ADRIAN MD on Oct 21 2021 2:45PM EST [id number] Normal [facility] CBC panel Auto (Bld)on 10-20 Erythrocyte distribution width (RBC) [Ratio] 14.6 % Normal 11.5-15.0 [facility] Comment on above: Order Comment: Specimen Type: BLOOD SPEC IMEN Ordering Facility: [facility] Address: [address] [place] [address] Performed By: #### 5 8410-2 #### [facility] CLIA [id number] [address] [place] [address] STATES OF [facility] Hematocrit (Bld) [Volume fraction] 33.4 % Low 36.0-46.0 [facility] Comment on above: Order Comment: Specimen Type: BLOOD SPEC IMEN Ordering Facility: [facility] Address: [address] [place] [address] Performed By: #### 5 8410-2 #### [facility] CLIA [id number] [address] [place] [address] [place] Hemoglobin (Bld) [Mass/Vol] 10.4 g/dL Low 11.5-15.5 [facility] Comment on above: Order Comment: Specimen Type: BLOOD SPEC IMEN Ordering Facility: [facility] Address: [address] [place] [address] Performed By: #### 5 8410-2 #### [facility] CLIA [id number] [address] [place] [address] [place] MCH (RBC) [Entitic mass] 29.1 pg Normal 26.0-34.0 [facility] Comment on above: Order Comment: Specimen Type: BLOOD SPEC IMEN Ordering Facility: [facility] Address: [address] [place], [place] [address] Performed By: #### 5 8410-2 #### [facility] CLIA [id number] [address] [place] [address] [place] MCHC (RBC) [Mass/Vol] 31.1 g/dL Normal 30.5-36.0 [facility] Comment on above: Order Comment: Specimen Type: BLOOD SPEC IMEN Ordering Facility: [facility] Address: [address] [place], [place] [address] Performed By: #### 5 8410-2 #### [facility] CLIA [id number] [address] [place] [address] [place] MCV (RBC) [Entitic vol] 93.3 fL Normal 80.0-100.0 [facility] Comment on above: Order Comment: Specimen Type: BLOOD SPEC IMEN Ordering Facility: [facility] Address: [address] [place], [place] [address] Performed By: #### 5 8410-2 #### [facility] CLIA [id number] [address] [place] [address] [place] Nucleated RBC (Bld) [#/Vol] 10*3/uL Normal <0.01 [facility] Comment on above: Order Comment: Specimen Type: BLOOD SPEC IMEN Ordering Facility: [facility] Address: [address] [place], [place] [id number] Performed By: #### 5 8410-2 #### [facility] CLIA [id number] [address] [place] [address] [place] Platelet mean volume (Bld) [Entitic vol] 10.7 fL Normal 9.0-12.7 [facility] Comment on above: Order Comment: Specimen Type: BLOOD SPEC IMEN Ordering Facility: [facility] Address: [address] [place], [place] [address] Performed By: #### 5 8410-2 #### [facility] CLIA [id number] [address] [place] [address] [place] Platelets (Bld) [#/Vol] 128 10*3/uL Low 150-400 [facility] Comment on above: Order Comment: Specimen Type: BLOOD SPEC IMEN Ordering Facility: [facility] Address: [address] [place], [place] [address] Performed By: #### 5 8410-2 #### [facility] CLIA [id number] [address] [place] [address] [place] RBC (Bld) [#/Vol] 3.58 10*6/uL Low 3.90-5.20 [facility] Comment on above: Order Comment: Specimen Type: BLOOD SPEC IMEN Ordering Facility: [facility] Address: [address] [place], [place] [address] Performed By: #### 5 8410-2 #### [facility] CLIA [id number] [address] [place] [address] [place] WBC (Bld) [#/Vol] 2.96 10*3/uL Low 3.70-11.00 [facility] Comment on above: Order Comment: Specimen Type: BLOOD SPEC IMEN Ordering Facility: [facility] Address: [address] [place], [place] [address] Performed By: #### 5 8410-2 #### [facility] CLIA [id number] [address] [place] [address] [place] [facility] [place] Comprehensive metabolic 2000 panelon 10-20-2021 Albumin [Mass/Vol] 3.7 g/dL Low 3.9-4.9 [facility] Comment on above: Order Comment: Specimen Type: BLOOD SPEC IMEN Ordering Facility: [facility] Address: [address] [place], [place] [id number] Performed By: #### 2 777-1, , 59480-3 #### [facility] CLIA [id number] [address] [place] [address] [place] ALP [Catalytic activity/Vol] 48 U/L Normal 34-123 [facility] Comment on above: Order Comment: Specimen Type: BLOOD SPEC IMEN Ordering Facility: [facility] Address: [address] [place], [place] [address] Performed By: #### 2 777-1, , 55633-1 #### [facility] CLIA [id number] [address] [place] [address] [place] ALT [Catalytic activity/Vol] 11 U/L Normal 7-38 [facility] Comment on above: Order Comment: Specimen Type: BLOOD SPEC IMEN Ordering Facility: [facility] Address: [address] [place] [address] Performed By: #### 2 777-1, , 14088-8 #### [facility] CLIA [id number] [address] [place] [address] [place] Anion gap [Moles/Vol] 14 mmol/L Normal 9-18 [facility] Comment on above: Order Comment: Specimen Type: BLOOD SPEC IMEN Ordering Facility: [facility] Address: [address] [place], [place] [id number] Performed By: #### 2 777-1, , 13861-0 #### [facility] CLIA [id number] [address] [place] [address] [place] AST [Catalytic activity/Vol] 16 U/L Normal 13-35 [facility] Comment on above: Order Comment: Specimen Type: BLOOD SPEC IMEN Ordering Facility: [facility] Address: [address] [place], [place] [address] Performed By: #### 2 777-1, , 39938-4 #### [facility] CLIA [id number] [address] [place] [address] [place] Bilirubin [Mass/Vol] 0.6 mg/dL Normal 0.2-1.3 [facility] Comment on above: Order Comment: Specimen Type: BLOOD SPEC IMEN Ordering Facility: [facility] Address: [address] [place] [address] Performed By: #### 2 777-1, , 68536-3 #### [facility] CLIA [id number] [address] [place] [address] [place] Calcium [Mass/Vol] 8.8 mg/dL Normal 8.5-10.2 [facility] Comment on above: Order Comment: Specimen Type: BLOOD SPEC IMEN Ordering Facility: [facility] Address: [address] [place] [address] Performed By: #### 2 777-1, , 28230-9 #### [facility] CLIA [id number] [address] [place] [address] [place] Chloride [Moles/Vol] 104 mmol/L Normal 97-105 [facility] Comment on above: Order Comment: Specimen Type: BLOOD SPEC IMEN Ordering Facility: [facility] Address: [address] [place] [address] Performed By: #### 2 777-1, , 30723-3 #### [facility] CLIA [id number] [address] [place] [address] [place] CO2 [Moles/Vol] 24 mmol/L Normal 22-30 [facility] Comment on above: Order Comment: Specimen Type: BLOOD SPEC IMEN Ordering Facility: [facility] Address: [address] [place], [place] [id number] Performed By: #### 2 777-1, , 13431-0 #### [facility] CLIA [id number] [address] [place] [address] [place] Creatinine [Mass/Vol] 0.56 mg/dL Low 0.58-0.96 [facility] Comment on above: Order Comment: Specimen Type: BLOOD SPEC IMEN Ordering Facility: [facility] Address: [address] [place], [place] [id number] Performed By: #### 2 777-1, , 10500-7 #### [facility] CLIA [id number] [address] [place] [address] [place] ESTIMATED GLOMERULAR FILTRATION RATE 101 mL/min/1.73m??? Normal >=60 [facility] Comment on above: Order Comment: Specimen Type: BLOOD SPEC IMEN Ordering Facility: [facility] Address: [address] [place] [address] Result Comment: Humaira mated Glomerular Filtration Rate [...] Performed By: #### 2 777-1, , #### [facility] CLIA [id number] [address] [place] [address] [place] Glucose [Mass/Vol] 100 mg/dL High 74-99 [facility] Comment on above: Order Comment: Specimen Type: BLOOD SPEC IMEN Ordering Facility: [facility] Address: [address] [place], [place] [phone] Result Comment: The [place] [employer] (ADA) provides guidance for cutoff [...] Standards of Medical Care in Diabetes 2016, [place] [employer]. Diabetes Care. 2016.39(Suppl 1). Performed By: #### 2 777-1, , 11675-0 #### [facility] CLIA [id number] [address] [place] [address] [place] Potassium [Moles/Vol] 2.7 mmol/L Low 3.7-5.1 [facility] Comment on above: Order Comment: Specimen Type: BLOOD SPEC IMEN Ordering Facility: [facility] Address: [address] [place] [address] Performed By: #### 2 777-1, , 88145-8 #### [facility] CLIA [id number] [address] [place] [address] [place] Protein [Mass/Vol] 6.0 g/dL Low 6.3-8.0 [facility] Comment on above: Order Comment: Specimen Type: BLOOD SPEC IMEN Ordering Facility: [facility] Address: [address] [place] [address] Performed By: #### 2 777-1, , 41544-3 #### [facility] CLIA [id number] [address] [place] [address] [place] Sodium [Moles/Vol] 142 mmol/L Normal 136-144 [facility] Comment on above: Order Comment: Specimen Type: BLOOD SPEC IMEN Ordering Facility: [facility] Address: [address] [place] [id number] Performed By: #### 2 777-1, , 06123-5 #### [facility] CLIA [id number] [address] [place], [place] [id number] [place] Urea nitrogen [Mass/Vol] 12 mg/dL Normal 7-21 [facility] Comment on above: Order Comment: Specimen Type: BLOOD SPEC IMEN Ordering Facility: [facility] Address: [address] [place] [address] Performed By: #### 2 777-1, , 44169-4 #### [facility] CLIA [id number] [address] [place] [address] [place] Lactate (Bld) [Moles/Vol]on 10-20-2021 Lactate [Moles/Vol] 0.5 mmol/L Normal 0.5-2.2 [facility] Comment on above: Order Comment: Specimen Type: BLOOD SPEC IMEN Ordering Facility: [facility] Address: [address] [place] [address] Performed By: #### 2 777-1, , 32437-6 #### [facility] CLIA [id number] [address] [place] [address] [place] Magnesium SerPl-mCncon 10-20 Magnesium [Mass/Vol] 2.0 mg/dL Normal 1.7-2.3 [facility] Comment on above: Order Comment: Specimen Type: BLOOD SPEC IMEN Ordering Facility: [facility] Address: [address] [place] [address] Performed By: #### 2 777-1, , 74463-8 #### [facility] CLIA [id number] [address] [place] [address] [place] PT panel Coag (PPP)on 2021 INR Coag (PPP) [Relative time] 1.1 {INR} Normal 0.9-1.3 [facility] Comment on above: Order Comment: Specimen Type: BLOOD SPEC IMEN Ordering Facility: [facility] Address: [address] [place] [address] Result Comment: Rosalind min K Antagonist (VKA) Therapeutic Range: INR 2 to 3 (Target INR of 2.5) Note: For patients treated with VKA drugs, such as warfarin, the [place] [employer] 2012 Guideline recommends [...] Chest 2012, 141:7S-47S Nadeen RA, et al. [facility] 2017, 70: 252-289 Performed By: #### 2 777-1, , #### [facility] CLIA [id number] [address] [place] [address] [place] PT Coag (PPP) [Time] 11.9 s Normal 9.7-13.0 [facility] Comment on above: Order Comment: Specimen Type: BLOOD SPEC IMEN Ordering Facility: [facility] Address: [address] [place] [address] Performed By: #### 2 777-1, , #### [facility] CLIA [id number] [address] [place] [address] [place] Phosphate SerPl-mCncon 10-20 Phosphate [Mass/Vol] 2.0 mg/dL Low 2.7-4.8 [facility] Comment on above: Order Comment: Specimen Type: BLOOD SPEC IMEN Ordering Facility: [facility] Address: [address] [place], [place] [phone] Performed By: #### 2 777-1, , #### [facility] CLIA [id number] [address] [place] [address] [place] SARS-CoV-2 RNA Resp Ql BOBO+p robeon 10-20-2021 SARS-CoV-2 (COVID-19) RNA BOBO+probe Ql (Resp) COVID 19 RESULT: SARS-CoV-2 (Agent of COVID-19) Not Detected by RT-PCR or equivalent method. This test has been authorized by FDA under an Emergency Use Authorization (EUA). Normal [facility] Comment on above: Performed By: #### 2777-1, 67515-7, 2432 1-2 #### [facility] CLIA [id number] [address] [place] [address] [place] TYPE + SCREENon 10-20-2021 ABO A Normal [facility] Comment on above: Order Comment: Specimen Type: BLOOD SPEC IMEN Ordering Facility: [facility] Address: [address] [place] [address] Performed By: #### T SCR #### [facility] CLIA [id number] [address] [place] [address] [place] HISTORICAL AB SCR STATUS Negative Normal [facility] Comment on above: Order Comment: Specimen Type: BLOOD SPEC IMEN Ordering Facility: [facility] Address: [address] [place] [address] Performed By: #### T SCR #### [facility] CLIA [id number] [address] [place] [address] [place] Rh Nom (Bld) Negative Normal [facility] Comment on above: Order Comment: Specimen Type: BLOOD SPEC IMEN Ordering Facility: [facility] Address: [address] [place] [address] Performed By: #### T SCR #### [facility] CLIA [id number] [address] [place] [address] [place] TYPE AND SCREEN EXPIRATION 10/22/2021 23:59 Normal [facility] Comment on above: Order Comment: Specimen Type: BLOOD SPEC IMEN Ordering Facility: [facility] Address: [address] [place] [address] Performed By: #### T SCR #### [facility] CLIA [id number] [address] [place] [address] aPTT PPPon 10-20-2021 aPTT Coag (PPP) [Time] 26.6 s Normal 23.0-32.4 [facility] Comment on above: Order Comment: Specimen Type: BLOOD SPEC IMEN Ordering Facility: [facility] Address: [address] [place] [address] Performed By: #### 2 777-1, 67900-2, 66746-6 #### [facility] CLIA [id number] [address] [place] [address] HISTORY PHYSICALon HISTORY PHYSICAL HNO ID: [id number] Author: [place]ia Gilmore MD Service: General Surgery [...] old female who presents as transfer [facility] for concern for SBO. She has [...] has been waiting to be transferred to [facility] since then. Since presenting to [facility] hospital on day 1 of her [...] mg tablet, (more content not included)... Normal [facility] XR ABDOMEN 1V SUPINEon 10-19 XR [...] Degenerative changes and dextroscoliosis of the spine. Body Artist: PSCSophia Transcribe Date/Time: Oct 19 2021 7:02P Dictated by : JAN HOLLIDAY MD This examination was interpreted and the report reviewed and electronically signed by: JAN HOLLIDAY MD on Oct 19 2021 7:04PM EST [id number] [facility]-18-2021 Amylase [Catalytic activity/Vol] 46 U/L Normal 25-115 [facility] Comment on above: Performed By: #### DAVID, CMADM, LIPA, CMP #### [facility] [address] [address] [address] Rashida Carcamo CARDIAC JESSICA ADMITon 022 CK [Catalytic activity/Vol] 155 U/L Normal 26-192 [facility] Comment on above: Performed By: #### DAVID, CMADM, LIPA, CMP #### [facility] [address] [address] [address] Rashida Carcamo CK.MB [Mass/Vol] 0.64 ng/mL Normal <=3.60 [facility] Comment on above: Performed By: #### DAVID, CMADM, LIPA, CMP #### [facility] [address] [address] [address] Rashida Carcamo HSTROP <4.0 Normal 4.0-51.3 [facility] Comment on above: Result Comment: CUT-OFF POINTS HAVE BEEN ESTABLISHED BASED ON THE FOURTH UNIVERSAL DEFINITIONS OF MYOCARDIAL INFARCTION. THE UPPER REFERENCE LIMIT (URL) OF TROPONIN, DEFINED THE 99TH PERCENTILE OF cTnI DISTRIBUTION IN A REFERENCE POPULATION, HAS BEEN CONFIRMED THE DECISION THRESHOLD FOR NM DIAGNOSIS. Performed By: #### A MY, CMADM, LIPA, CMP #### [facility] [address] [address] [address] Rashida Carcamo ADRIANA 49 ng/mL Normal 9-82 [facility] Comment on above: Performed By: #### DAVID, CMADM, LIPA, CMP #### [facility] [address] [place] [address] Dr. Rashida Carcamo CBC W MANUAL DIFFon 10-19-19 22 ATYPICAL LYMPH # Normal [facility] Comment on above: Performed By: #### CBCMAN #### [facility] [address] [place] [address] Dr. Rashida Carcmao ATYPICAL LYMPH % Normal [facility] Comment on above: Performed By: #### CBCMAN #### [facility] [address] [place] [address] Dr. Rashida Carcamo BAND # 0.1 103/ul Normal 0.0-0.3 [facility] Comment on above: Performed By: #### CBCMAN #### [facility] [address] [place] [address] Dr. Rashida Carcamo BAND % 1 % Normal 0-5 [facility] Comment on above: Performed By: #### CBCMAN #### [facility] [address] [place] [address] Dr. Rashida Carcamo BASOM # 0.00 103/ul Normal 0.00-0.10 [facility] Comment on above: Performed By: #### CBCMAN #### [facility] [address] [place] [address] Dr. Rashida Carcamo BASOM % 0.0 % Critically low 0.2-2.0 [facility] Comment on above: Performed By: #### CBCMAN #### [facility] [address] [place] [address] Dr. Rashida Carcamo BLAST # Normal [facility] Comment on above: Performed By: #### CBCMAN #### [facility] [address] [place] [address] Dr. Rashida Carcamo BLAST % Normal [facility] Comment on above: Performed By: #### CBCMAN #### [facility] [address] [place] [address] Dr. Rashida Carcamo CORRECTED WBC Normal 4.0-11.0 [facility] Comment on above: Performed By: #### CBCBONY #### [facility] [address] [place] [address] Dr. Rashida Carcamo EOS # 0.00 103/ul Normal 0.00-0.70 [facility] Comment on above: Performed By: #### CBCBONY #### [facility] [address] [place] [address] Dr. Rashida Carcamo EOS% 0.0 % Critically low 0.9-7.0 [facility] Comment on above: Performed By: #### CBCBONY #### [facility] [address] [place] [address] Dr. Rashida Carcamo HCT 44.6 % Normal 36.0-48.0 [facility] Comment on above: Performed By: #### CBCBONY #### [facility] [address] [place] [address] Dr. Rashida Carcamo HGB 14.4 g/dl Normal 12.0-16.0 [facility] Comment on above: Performed By: #### CBCBONY #### [facility] [address] [place] [address] Dr. Rashida Carcamo LYMPHM # 1.23 103/ul Normal 1.20-3.80 [facility] Comment on above: Performed By: #### CBCBONY #### [facility] [address] [place] [address] Dr. Rashida Carcamo LYMPHM% 15.0 % Critically low 20.5-60.0 [facility] Comment on above: Performed By: #### CBCBONY #### [facility] [address] [place] [address] Dr. Rashida Carcamo MCH 29.0 pg Normal 26.7-34.0 [facility] Comment on above: Performed By: #### CBCBONY #### [facility] [address] [place] [address] Dr. Rashida Carcamo MCHC 32.3 g/dl Normal 29.9-35.2 [facility] Comment on above: Performed By: #### CBCBONY #### [facility] [address] [place] [address] Dr. Rashida Carcamo MCV 89.9 fL Normal 81.0-99.0 [facility] Comment on above: Performed By: #### CBCBONY #### [facility] [address] [place] [address] Dr. Rashida Carcamo METAMYELOCYTE # Normal [facility] Comment on above: Performed By: #### CBCBONY #### [facility] [address] [place] [address] Dr. Rashida Carcamo METAMYELOCYTE % Normal [facility] Comment on above: Performed By: #### CBCBONY #### [facility] [address] [place] [address] Dr. Rashida Carcamo MONOM# 0.25 103/ul Critically low 0.30-0.80 [facility] Comment on above: Performed By: #### CBCBONY #### [facility] [address] [place] [address] Dr. Rashida Carcamo MONOM% 3.0 % Normal 1.7-12.0 [facility] Comment on above: Performed By: #### CBCBONY #### [facility] [address] [place] [address] Dr. Rashida Carcamo MPV 10.9 fL Normal 9.5-13.5 [facility] Comment on above: Performed By: #### CBCBONY #### [facility] [address] [place] [address] Dr. Rashida Carcamo MYELOCYTE # Normal [facility] Comment on above: Performed By: #### CBCBONY #### [facility] [address] [place] [address] Dr. Rashida Carcamo MYELOCYTE % Normal [facility] Comment on above: Performed By: #### CBCBONY #### [facility] [address] [place] [address] Dr. Rashida Carcamo NRBC Normal [facility] Comment on above: Performed By: #### CBCBONY #### [facility] [address] [place] [address] Dr. Rashida Carcamo PLT 172 103/ul Normal 150-450 [facility] Comment on above: Performed By: #### JOHN #### [facility] [address] [address] [address] Rashida Carcamo RBC 4.96 106/ul Normal 4.20-5.40 [facility] Comment on above: Performed By: #### CBCBONY #### [facility] [address] [place] [address] Dr. Rashida Carcamo RDW 14.4 % Normal 11.0-15.0 [facility] Comment on above: Performed By: #### JOHN #### [facility] [address] [place] [address] Dr. Rashida Carcamo SEG # 6.64 103/ul Critically high 1.40-6.50 [facility] Comment on above: Performed By: #### CBCBONY #### [facility] [address] [place] [address] Dr. Rashida Carcamo SEG % 81.0 % Critically high 43.0-75.0 [facility] Comment on above: Performed By: #### CBCBONY #### [facility] [address] [place] [address] Dr. Rashida Carcamo WBC 8.2 103/ul Normal 4.0-11.0 [facility] Comment on above: Performed By: #### CBCBONY #### [facility] [address] [place] [address] ABD/PELV W CONon [...] BRIEN JAIMES Date: 2021-10-18 06:24 Normal [facility] Covid-19 PCR (CVDTBH)on 09-26 SARS-CoV-2 (COVID-19) RNA BOBO+probe Ql (Unsp spec) Not detected Normal NOT DETECTED [facility] Comment on above: Result Comment: When [...] for this test is supported by the [place] [employer] and Human Service's declaration that [...] longer be used). Performed By: #### [facility] ####[facility] [id number] [place], [place] [address]ZdDallas Carcamo URINE PROFILEon 2 Bilirubin Ql (U) Negative Normal NEGATIVE [facility] Comment on above: Performed By: #### ERUR #### [facility] [address] [place] [address] Dr. Rashida Carcamo Clarity (U) SL CLOUDY Abnormal CLEAR [facility] Comment on above: Performed By: #### ERUR #### [facility] [address] [place] [address] Dr. Rashida Carcamo Color (U) LT. YELLOW Normal YELLOW [facility] Comment on above: Performed By: #### ERUR #### [facility] [address] [place] [address] Dr. Rashida Carcamo ERUDEREKD A micrscopic examina tion will be performed if indicated. Normal [facility] Comment on above: Performed By: #### ERUR #### [facility] [address] [place] [address] Dr. Rashida Carcamo Glucose Ql (U) Negative Normal NEGATIVE [facility] Comment on above: Performed By: #### ERUR #### [facility] [address] [place] [address] Dr. Rashida Carcamo Hemoglobin Ql (U) Negative Normal NEGATIVE [facility] Comment on above: Performed By: #### ERUR #### [facility] [address] [place] [address] Dr. Rashida Carcamo Ketones Ql (U) 40 mg/dl Abnormal NEGATIVE [facility] Comment on above: Performed By: #### ERUR #### [facility] [address] [place] [address] Dr. Rashida Carcamo LEUKOCYTES Negative Normal NEGATIVE [facility] Comment on above: Performed By: #### ERUR #### [facility] [address] [place] [address] Dr. Rashida Carcamo Nitrite Ql (U) Negative Normal NEGATIVE [facility] Comment on above: Performed By: #### ERUR #### [facility] [address] [place] [address] Dr. Rashida Carcamo pH (U) 8.0 [pH] Normal 5-9 [facility] Comment on above: Performed By: #### ERUR #### [facility] [address] [place] [address] Dr. Rashida Carcamo SPEC GRAVITY 1.015 Normal 1.005-<=1.025 [facility] Comment on above: Performed By: #### ERUR #### [facility] [address] [place] [address] Dr. Rashida Carcamo UA PROTEIN Negative Normal NEGATIVE/ TRACE [facility] Comment on above: Performed By: #### ERUR #### [facility] [address] [place] [address] Dr. Rashida Carcamo UR MICRO IND NOT INDICATED Normal [facility] Comment on above: Performed By: #### ERUR #### [facility] [address] [place] [address] Dr. Rashida Carcamo Urobilinogen Qn (U) 0.2 {Lorna'U}/dL Normal 0.2 - 1.0 [facility] Comment on above: Performed By: #### ERUR #### [facility] [address] [place] [address] Dr. Rashida Carcamo LACTATE/LACTIC ACIDon 2021 Lactate [Moles/Vol] 1.3 mmol/L Normal 0.4-1.9 [facility] Comment on above: Performed By: #### LACT #### [facility] [address] [place] [address] Dr. Rashida Carcamo LIPASEon 10-18-2021 Lipase [Catalytic activity/Vol] 127.0 U/L Normal 73.0-393.0 [facility] Comment on above: Performed By: #### DAVID, CMADM, LIPA, CMP #### [facility] [address] [place] [address] Dr. Rashida Carcamo PROF 14(COMP METB)on 022 Albumin [Mass/Vol] 4.5 g/dL Normal 3.4-5.0 [facility] Comment on above: Performed By: #### DAVID, CMADM, LIPA, CMP #### [facility] [address] [place] [address] Dr. Rashida Carcamo Albumin/Globulin [Mass ratio] 1.2 {ratio} Normal [facility] Comment on above: Performed By: #### DAVID, CMADM, LIPA, CMP #### [facility] [address] [place] [address] Dr. Rashida Carcamo ALP [Catalytic activity/Vol] 67 U/L Normal 46-116 [facility] Comment on above: Performed By: #### DAVID, CMADM, LIPA, CMP #### [facility] [address] [place] [address] Dr. Rashida Carcamo ALT [Catalytic activity/Vol] 29 U/L Normal 14-59 [facility] Comment on above: Performed By: #### DAVID, CMADM, LIPA, CMP #### [facility] [address] [place] [address] Dr. Rashida Carcamo Anion gap [Moles/Vol] 14.1 mmol/L Normal [facility] Comment on above: Performed By: #### DAVID, CMADM, LIPA, CMP #### [facility] [address] [place] [address] Dr. Rashida Carcamo AST [Catalytic activity/Vol] 31 U/L Normal 15-37 [facility] Comment on above: Performed By: #### DAVID, CMADM, LIPA, CMP #### [facility] [address] [place] [address] Dr. Rashida Carcamo Bilirubin [Mass/Vol] 0.8 mg/dL Normal 0.2-1.0 [facility] Comment on above: Performed By: #### DAVID, CMADM, LIPA, CMP #### [facility] [address] [place] [address] Dr. Rashida Carcamo Calcium [Mass/Vol] 10.2 mg/dL Critically high 8.5-10.1 [facility] Comment on above: Performed By: #### DAVID, CMADM, LIPA, CMP #### [facility] [address] [place] [address] Dr. Rashida Carcamo Chloride [Moles/Vol] 100 mmol/L Normal 98-107 [facility] Comment on above: Performed By: #### DAVID, CMADM, LIPA, CMP #### [facility] [address] [address] [address] Rashida Carcamo CO2 [Moles/Vol] 29.4 mmol/L Normal 21.0-32.0 [facility] Comment on above: Performed By: #### DAVID, CMADM, LIPA, CMP #### [facility] [address] [address] [address] Rashida Carcamo Creatinine [Mass/Vol] 0.70 mg/dL Normal 0.55-1.02 [facility] Comment on above: Performed By: #### DAVID, CMADM, LIPA, CMP #### [facility] [address] [address] [address] Rashida Carcamo EGFR-AF SOUTH AFRICAN >60 Normal >=60 [facility] Comment on above: Performed By: #### DAVID, CMADM, LIPA, CMP #### [facility] [address] [address] [address] Rashida Carcamo EGFR-NON AF SOUTH AFRICAN >60 Normal >=60 [facility] Comment on above: Performed By: #### DAVID, CMADM, LIPA, CMP #### [facility] [address] [address] [address] Rashida Carcamo Globulin (S) [Mass/Vol] 3.9 g/dL Normal [facility] Comment on above: Performed By: #### DAVID, CMADM, LIPA, CMP #### [facility] [address] [address] [address] Rashida Carcamo Glucose [Mass/Vol] 164 mg/dL Critically high 74-106 [facility] Comment on above: Performed By: #### DAVID, CMADM, LIPA, CMP #### [facility] [address] [address] [address] Rashida Carcamo Potassium [Moles/Vol] 3.5 mmol/L Normal 3.5-5.1 [facility] Comment on above: Performed By: #### DAVID, CMADM, LIPA, CMP #### [facility] [address] [address] [address] Rashida Carcamo Protein [Mass/Vol] 8.4 g/dL Critically high 6.4-8.2 [facility] Comment on above: Performed By: #### DAVID, CMADM, LIPA, CMP #### [facility] [address] [address] [address] Rashida Carcamo Sodium [Moles/Vol] 140 mmol/L Normal 136-145 [facility] Comment on above: Performed By: #### DAVID, CMADM, LIPA, CMP #### [facility] [address] [address] [address] Rashida Carcamo Urea nitrogen [Mass/Vol] 24.0 mg/dL Critically high 7.0-18.0 [facility] Comment on above: Performed By: #### DAVID, CMADM, LIPA, CMP #### [facility] [address] [place] [address] Dr. Rashida Carcamo Urea nitrogen/Creatin ine [Mass ratio] 34.3 mg/mg Normal [facility] Comment on above: Performed By: #### DAVID, CMADM, LIPA, CMP #### [facility] [address] [place] [address] Dr. Rashida Carcamo XR FOOT KARLOS MIN [...] by: ISAIAH ROJAS Date: 2021-08-06 12:00 Normal [facility] CASE MANAGEMon 01-13-2017 CASE MANAGEM HNO ID: [id number] thor: Samanta (Rn) RAJ Alfordervice: Care ManagementAuthor Type: Registered NurseType: Care Mgt Progress NoteFiled: 01/13/2017 11:46 AMNote Text:MULTIDISCIPLINARY ROUNDSSERVICE DATE: 01/13/2017 ADMISSION DATE: 01/08/2017SERVICE TIME: 11:43 AM ANTICIPATED D/C DATE: 01/13/2017Problem List:ACTIVE PROBLEM LISTIron Deficiency AnemiaPud (Peptic Ulcer Disease)Carotid StenosisVertigoTachycardiaBpv (Benign Positional Vertigo)Hld (Hyperlipidaemia)Rectal BleedingExertional DyspneaEmphysema of Lung (Hcc)Alcohol AbuseStatus Post SurgerySbo (Small Bowel Obstruction) ([facility])Attendees Present at Rounds:Nurses' Registry Director: Alison ALFONSO ACMNurse Process Control Operator: Marlena Santana Nurse: Laura Discussed on Rounds:Discharge [...] January 13, 2017 : 11:43 AM CSN: [id number] [facility] CNDSon 01-13-2017 CNDS HNO ID: [id number] thor: Natasha (New Product Trainer) MONIQUE YunService: General SurgeryAuthor Type: Nurse PractitionerType: Discharge SummariesFiled: 01/13/2017 1:38 PMNote Text:DISCHARGE SUMMARYPATIENT NAME: Sofie Adrian ADMISSION DATE: 01/08/2017MRN: [id number] DISCHARGE DATE: 01/13/2017Attending Physician: Adis Richardson for Hospitalization: abdominal painActive Problems: SBO (small bowel obstruction) (HCC)Resolved Problems: * No resolved hospital problems. *Operations During Hospitalization: Diagnostic laparoscopy and lysis ofadhesionsProcedures During Hospitalization: intubation for surgeryHospital Course:Admitted on 01/08/17 with abdominal pain, nausea and vomiting from [facility]. Evaluated by surgery and CT result was [...] (141 lb 6.4 oz) SpO2 95% BMI26.72 kg/q9Usoasojuhdd Provided to Patient:Symptoms or health problems to watch for after I leave the hospital:-Increasing abdominal pain or rlfrgdvf-Hwzhqwpp-Itzu or no urine-Fever greater than 101.5?F (38.6?C) [...] should be taken as instructed by your surgeonincluding:Anti-diarrhe al medications:Benefiber, Citrucel, Fibercon, Konsyl, or Metamucil.Imodium, Lomotil, [...] that worsen your function should be avoided.8. Melida: If you have melida, these should be [...] yoursurgeon and set up an appointment at [phone] Medications: Discharge Medication List as of 01/13/2017 [...] procedure)Comments:Reason for Stopping:Future AppointmentsDate Time Provider Department Gcmiyg6201/26/2017 2:00 PM [id number], KATHRYN (CORRECTIONS OFFICER) [id number] [facility] - Office [address] [place] [address] [place] [address] *[facility] and the flower shop*TIME OF CARE: Discharge Management: I personally spent greater than 30minutes involved in the discharge management of this patient.SIGNATURE: Natasha YUN CNP PAGER: [phone]: January 13, 2017TIME: 9:50 AM Normal [facility] NURSING PROGon 01-13-2017 NURSING PROG HNO ID: [id number] thor: Saida (Rn) RAJ Rodriguezervice: NursingAuthor Type: Registered NurseType: Nursing Progress NoteFiled: 01/13/2017 1:14 PMNote Text: Nursing Progress NotePatient Name: Sofie Donald JakeMRN: [id number] [id number] _Daily Note:IV Heplock D/C'd. Discharge instructions reviewed with patient, statesunderstanding. RX for Colace and MOM. No further questions at this time.1313: D/C off unit via wheelchair, picking up patient.This note was completed by: Saida Rodriguez RN [facility] NURSING PROG HNO ID: [id number] thor: Carmen Jha (Rn) Sangita, RNService: (none)Author Type: Registered NurseType: Nursing Progress NoteFiled: 01/13/2017 2:33 AMNote Text: Nursing Progress NotePatient Name: Sofie AdrianMRN: [id number] Location: [place] [address]/[id number] _ Sarah dsg changed earlier approx 2200 as saturated with serosang drainage.Gown changed. Pain controlled with toradol and tylenol and 5mg oxycodonegiven earlier. Pt declined MOM and colace as states had at least eightBMs loose today . Reports is chronic diarrhea after colon resection inpast.This note was completed by: Carmen Quesada RN [facility] PROGRESSon 01-13-2017 PROGRESS HNO ID: [id number] thor: Carlos (Res) PhilipService: General SurgeryAuthor Type: [...] wound. Patient tolerated the procedure well.Carlos Garcia MDNorth [facility] SurgeryFor any questions please contactSurgery Green Team pager [phone] weekdays.Or [phone] weeknights (6pm - 6am) and weekends.Date: 01/13/2017Time: 10:17 AM [facility] PROGRESS HNO ID: [id number] thor: Adis Bryante: General SurgeryAuthor Type: PhysicianType: Progress NotesFiled: 01/13/2017 1:09 PMNote Text:General Surgery Progress NoteService Date: January 13, 2017Patient Name: Sofie AdrianMRN: [id number] and Plan: 61 year old female with SBO and strangulated internalhernia??POD 4?s/p laparoscopic lysis of adhesions, doing well. Leukopenia?- Pain control: tylenol, PO oxy- FEN/GI: GIS diet, mIVFs- No Trujillo- VTE Prophylaxis: SQH, SCDs- Routine surgical care: IS, OOB- Dispo: Possible DC todayPlan to be discussed with Surgery Staff.Raghu Westbrook MDFor any questions please contactSurgery Green Team pager [phone] weekdays.Or [phone] weeknights (6pm - 6am) and weekends.Date: 01/13/2017Time: 7:55 AMSubjective:Interval Events: none. Pain: controlled. + bowel function. No othercomplaints.Physical Exam:BP 126/71 Pulse 65 Temp 36.6 ?C (97.9 ?F) (Oral) Resp 16 Ht 154.9cm (5' 1 ) Wt 64.1 kg (141 lb 6.4 oz) SpO2 95% BMI 26.72 kg/d2HPJJYZN/NEURO: Awake, Alert, no distressHEENT: Normocephalic, Atraumatic, sclera [...] 01/13/17 0659 01/13/17 07 - 01/14/17 0659Shift 2530-6764 8155-1724 8121-7076 24 Hour Total 3962-2804 3423-84462969-9926 24 Hour TotalINTAKE PO 120 120 240 PO 120 120 240 IV 1148 1148 D5 0.45%NS w/20KCL 1148 1148 Shift Total 1268 120 1388OUTPUT Urine 1200 969 341 4487 100 100 Void (ml) 1200 914 938 3947 100 100 Tubes 190 140 210 540 30 30 Drain/Tube Output (Drain/Tube Hasmukh Atkins Right Abdomen 01/09/1719) 190 140 210 540 30 30 # of BMs Number of BMs 1 x 2 x 1 x 4 x Shift Total 1390 530 755 2924 130 130Weight (kg) 64.1 64.1 64.1 64.1 [...] mg tablet Take 25 mg bymouth once daily.HYDROcodone-acetaminoph en (NORCO) 5-325 mg per tablet Take 1 [...] Evan Landeros, TREYeptember 2016 1:09 PM Normal [facility] Basic Metabolic Panlon 01-12 Anion gap 10 mmol/L Normal 01-12 [facility] Comment on above: Performed By: #### CBC, BMP, MG1 ####[place] [address] Calcium 8.3 mg/dL Low 8.5-10.5 [facility] Comment on above: Result Comment: Reviewed Performed By: #### C BC, BMP, MG1 ####[place] [address] Chloride 105 mmol/L Normal 98-110 [facility] Comment on above: Performed By: #### CBC, BMP, MG1 ####[place] [address] CO2 23 mmol/L Normal 23-32 [facility] Comment on above: Performed By: #### CBC, BMP, MG1 ####[place] [address] Creatinine 0.54 mg/dL Low 0.70-1.40 [facility] Comment on above: Performed By: #### CBC, BMP, MG1 ####[place] [address] eGFR (non-black) mL/min/{1.73_m2} Normal >60 [facility] Comment on above: Performed By: #### CBC, BMP, MG1 ####[place] [address] Glucose mass conc 111 mg/dL High 65-100 [facility] Comment on above: Performed By: #### CBC, BMP, MG1 ####[place] [facility] [place] [address] Potassium molar conc 4.1 mmol/L Normal 3.5-5.0 [facility] Comment on above: Result Comment: Reviewed Performed By: #### C BC, BMP, MG1 ####[facility] [place], [place] [address] Sodium 138 mmol/L Normal 132-148 [facility] Comment on above: Performed By: #### CBC, BMP, MG1 ####[place] [facility] [place] [address] Urea nitrogen 4 mg/dL Low 8-25 [facility] Comment on above: Performed By: #### CBC, BMP, MG1 ####[place] [address] [place] [address] CASE MGT INIT ASSESon 2016 CASE MGT INIT [facility] HNO ID: [id number]: Negar (Histology Teacher-S) SOMMER Johnervice: Social WorkAuthor Type: Social WorkerType: Care Mgt Initial AssessmentFiled: 01/12/2017 10:39 AMNote Text:CARE MANAGEMENT: ASSESSMENT AND DISCHARGE PLANSERVICE DATE: 01/12/2017SERVICE TIME: 0940PRIMARY CARE PHYSICIAN:ANN Mercerhone: [phone] STATUS: InpatientPOTENTIAL DISCHARGE PLANSHomePatient/Representati ve Stated Goals: I dont think I will be needinganything when I go home per ptNeeds Prior to Discharge: Ready for DischargeHealth Insurance: Supermed PlusLiving Arrangement: HomeLives With: Spouse. Dtr lives nearby and assists with cleaningFinancial Resources: Pt and own a body shopPrimary Contact:Extended Emergency Contact InformationPrimary Emergency Contact: Ying Adrian Afqivosn: ChildSupportive: YesOther Important Patient Contacts: Pt states [...] days? NoHas the Patient Been in a Senior Living Facility in the Past 30 days? NoFREEDOM OF CHOICE EXPLAINED:Yes with ptHANDOFF COMMUNICATION:Primary Care Physician: Tommy Anaya DO .Summary will be routed via [employer] at d/cPt is from [facility] (about [address] [facility]) She is hopingto return home with no needs, but family can assist should needs arise.Dtr or will transport at d/c.SIGNATURE: BISMARK Jacobs PATIENT NAME: Sofie AdrianDATE: January 12, 2017 : 10:32 AM PAGER/CONTACT #: [phone] Normal [facility] CBCon 01-12-2017 Erythrocyte distribution width Auto Ratio (RBC) 12.7 % Normal 11.5-15.0 [facility] Comment on above: Performed By: #### CBC, BMP, MG1 ####[place] [address] Erythrocytes (RBC) 2.78 10*6/uL Low 3.90-5.20 [facility] Comment on above: Performed By: #### CBC BMP, MG1 ####[place] [address] Hematocrit (HCT) 27.9 % Low 36.0-46.0 [facility] Comment on above: Performed By: #### CBC, BMP, MG1 ####[place] [address] Hemoglobin mass conc (Bld) 8.8 g/dL Low 11.5-15.5 [facility] Comment on above: Performed By: #### CBC, BMP, MG1 ####[address] MCH 31.7 pG Normal 26.0-34.0 [facility] Comment on above: Performed By: #### CBC, BMP, MG1 ####[address] MCHC mass conc (RBC) 31.5 g/dL Normal 30.5-36.0 [facility] Comment on above: Performed By: #### CBC, BMP, MG1 ####[place] [address] MCV 100.4 fL High 80.0-100.0 [facility] Comment on above: Performed By: #### CBC, BMP, MG1 ####[address] [phone] Platelet mean volume (PMV) 11.1 fL Normal 9.0-12.7 [facility] Comment on above: Performed By: #### CBC, BMP, MG1 ####[place] [address] [place], [place] [phone] Platelets 135 10*3/uL Low 150-400 [facility] Comment on above: Performed By: #### CBC, BMP, MG1 ####[place] [address] [place], [place] [phone] WBC (Leukocytes) 3.27 10*3/uL Low 3.70-11.00 [facility] Comment on above: Performed By: #### CBC, BMP, MG1 ####[address] [phone] Magnesiumon 01-12-2017 Magnesium 1.8 mg/dL Normal 1.7-2.6 [facility] Comment on above: Performed By: #### CBC, BMP, MG1 ####[address] [phone] PROGRESSon 01-12-2017 PROGRESS HNO ID: [id number] thor: TREY Villavicencio Reservice: General SurgeryAuthor Type: ResidentType: Progress NotesFiled: 01/12/2017 7:27 AMNote Text:General Surgery Progress NoteService Date: January 12, 2017Patient Name: Sofie AdrianMRN: [id number] and Plan: Sofie Adrian is a 61 year old female with SBO andstrangulated internal hernia??POD 3?s/p laparoscopic lysis of adhesions,doing well. 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 No acute issues overnight. BM-, Flatus+.Pain -. N-. Denies SoB/CPPhysical Exam:BP 110/67 Pulse 76 Temp 36.5 ?C (97.7 ?F) (Oral) Resp 16 Ht 154.9cm (5' 1 ) Wt 64.1 kg (141 lb 6.4 oz) SpO2 95% BMI 26.72 kg/c5PHQLZRA/NEURO: Awake, Alert, no distressHEENT: Normocephalic, Atraumatic, sclera [...] -- 3.0Liver Function, Amylase, AND LipaseLactate (mmol/L)Date Value08/08/2015 1.0Intake and Output:Date 01/11/17 07 - 01/12/17 0659 01/12/17 07 - 01/13/17 0659Shift 3465-0607 4644-2824 5478-9624 24 Hour Total 9835-4968 6609-38625130-4012 24 Hour TotalINTAKE PO 120 120 240 PO 120 120 240 IV 623 803 6790 D5 0.45%NS w/20KCL 601 077 6404 Shift Total 1025 739 1764OUTPUT Urine 475 448 894 8502 Void (ml) 275 447 389 6251 Tube Output ([REMOVED] Drain Trujillo 01/09/17 16 [place] ) 200 200 Tubes 140 130 100 370 Drain/Tube Output (Drain/Tube Hasmukh Atkins Right Abdomen 01/09/1719Fr) 140 130 100 370 Shift Total 615 730 500 1845Weight (kg) 64.1 64.1 64.1 64.1 64.1 64.1 64.1 64.1Current Medications:Current hospital medications:pantoprazole DR 20 mg tab(s) (PROTONIX) 20 mg ORAL DAILY (6 AM)dextrose 5% in NaCl 0.45% with 20 mEq/L KCl iv infusion 100 mL/hrINTRAVENOUS CONTINUOUSmorphine FRUIT AND VEGETABLE FACTORY WORKER 1 mg/mL in NaCl 0.9% 100 mL INTRAVENOUS CONTINUOUSmorphine 1 mg/mL FRUIT AND VEGETABLE FACTORY WORKER CLINICIAN DOSE 1 mg 1 mg INTRAVENOUS [...] mg tablet Take 25 mg bymouth once daily.HYDROcodone-acetaminoph en (NORCO) 5-325 mg per tablet Take 1 [...] PRODUCT Indications: OSTEO-BIFLEX Takes 2 PO QD [facility] PT EDon 01-12-2017 PT ED HNO ID: [id number] thor: Nikki Tinajero (Pharmacist)Service: PharmacyAuthor Type: PharmacistType: Patient EducationFiled: 01/12/2017 11:10 AMNote Text:Clinical Pharmacy ServicesHigh Risk: Daily Medication AssessmentPatient Name: Sofie AdrianMRN: [id number] Date: 01/08/2017Service Date and Time: 01/12/2017 10:52 AMNew MedicationsThe following medications have been started since last pharmacy review:Protonix, ToradolMedication education has been completed: Yes or Comments: patient alsoasked about dosing her metoprololSignature: Julius Feliz (Staff Scientist)[place]: [phone]: [phone] Addendum:The above case has been reviewed and discussed with the pharmacy messenger.I agree with the assessment/plan described by the student. Changes andadditions to the details in the above note are indicated by italics and .Nikki Tinajero, Pharmacist01/12/2017 11:10 [id number] [facility] ANES Viktor 01-11-2017 ANES POST HNO ID: [id number] thor: Payam Gomezervice: AnesthesiologyAuthor Type: AnesthesiologistType: Anesthesia [...] Remarks:SIGNATURE: Payam Anand MD PATIENT NAME: Sofie AdrianDATE: January 11, 2017 : 12:36 PM PAGER/CONTACT #: [phone] Normal [facility] Basic Metabolic Panlon 01-11 Anion gap 9 mmol/L Normal 9-18 [facility] Comment on above: Performed By: #### RITA GRUBBS, MG1 ####[place] [phone] Calcium 7.4 mg/dL Low 8.5-10.5 [facility] Comment on above: Performed By: #### RITA GRUBBS, MG1 ####[place] [phone] Chloride 104 mmol/L Normal 98-110 [facility] Comment on above: Performed By: #### RITA GRUBBS, MG1 ####[place] [phone] CO2 23 mmol/L Normal 23-32 [facility] Comment on above: Performed By: #### RITA GRUBBS, MG1 ####[place] [phone] Creatinine 0.64 mg/dL Low 0.70-1.40 [facility] Comment on above: Performed By: #### RITA GRUBBS, MG1 ####[place] [phone] eGFR (non-black) mL/min/{1.73_m2} Normal >60 [facility] Comment on above: Performed By: #### ROMIE BMP, MG1 ####[place] [phone] Glucose mass conc 188 mg/dL High 65-100 [facility] Comment on above: Performed By: #### ROMIE BMP, MG1 ####[place] [phone] Potassium molar conc 3.4 mmol/L Low 3.5-5.0 [facility] Comment on above: Performed By: #### ROMIE BMP, MG1 ####[place] [phone] Sodium 136 mmol/L Normal 132-148 [facility] Comment on above: Performed By: #### CBCRITA, MG1 ####[place] [address] Urea nitrogen 10 mg/dL Normal 8-25 [facility] Comment on above: Performed By: #### CBC BMP, MG1 ####[place] [address] CBCon 01-11-2017 Erythrocyte distribution width Auto Ratio (RBC) 12.9 % Normal 11.5-15.0 [facility] Comment on above: Performed By: #### ROMIE BMP, MG1 ####[place] [address] Erythrocytes (RBC) 2.55 10*6/uL Low 3.90-5.20 [facility] Comment on above: Performed By: #### CBC BMP, MG1 ####[place] [address] Hematocrit (HCT) 25.8 % Low 36.0-46.0 [facility] Comment on above: Performed By: #### CBC BMP, MG1 ####[address] Hemoglobin mass conc (Bld) 8.2 g/dL Low 11.5-15.5 [facility] Comment on above: Performed By: #### CBC, BMP, MG1 ####[address] MCH 32.2 pG Normal 26.0-34.0 [facility] Comment on above: Performed By: #### CBC, BMP, MG1 ####[place] [phone] MCHC mass conc (RBC) 31.8 g/dL Normal 30.5-36.0 [facility] Comment on above: Performed By: #### CBC, BMP, MG1 ####[place] [phone] MCV 101.2 fL High 80.0-100.0 [facility] Comment on above: Performed By: #### ROMIE, BMP, MG1 ####[place] [id number] Platelet mean volume (PMV) 10.9 fL Normal 9.0-12.7 [facility] Comment on above: Performed By: #### CBC, BMP, MG1 ####[place] [id number] Platelets 112 10*3/uL Low 150-400 [facility] Comment on above: Performed By: #### ROMIE, BMP, MG1 ####[place] [id number] WBC (Leukocytes) 2.75 10*3/uL Low 3.70-11.00 [facility] Comment on above: Performed By: #### ROMIE, BMP, MG1 ####[place] [id number] Magnesiumon 01-11-2017 Magnesium 1.7 mg/dL Normal 1.7-2.6 [facility] Comment on above: Performed By: #### ROMIE, BMP, MG1 ####[place] [id number] NURSING PROGon 01-11-2017 NURSING PROG HNO ID: [id number] thor: Josie (Rn) RAJ Palafoxervice: NursingAuthor Type: Registered NurseType: Nursing Progress NoteFiled: 01/12/2017 12:04 AMNote Text: Nursing Progress NotePatient Name: Sofie AdrianN: [id number] Location: [address]/HT-WM5V-30 _ Pt awake and alert. Pt c/o 2/10 abdominal pain. Pt minimally using PCApump. Explained POC and probable advancement in diet and possiblediscontinue of FRUIT AND VEGETABLE FACTORY WORKER pump. Pt understands. Will continue to monitor.This note was completed by: Josie Palafox RN,BSN [facility] NURSING PROG HNO ID: [id number] thor: Judy Kumari) Elva Garciaice: (none)Author Type: Registered NurseType: Nursing Progress NoteFiled: 01/11/2017 6:28 PMNote Text: Nursing Progress NotePatient Name: Sofie AdrianN: [id number] Location: [place] [address] _Daily Note:IV/FRUIT AND VEGETABLE FACTORY WORKER maintained.Taking diet fair.No n/v.Voiding clearurine.Up in chair for about one hour,ambulates to bathroom with walker andone assist.Will reassess.This note was completed by: Judy Garcia RN [facility] NURSING PROG HNO ID: [id number] thor: Judy Kumari) [place] Garcia: (none)Author Type: Registered NurseType: Nursing Progress NoteFiled: 01/11/2017 9:48 AMNote Text: Nursing Progress NotePatient Name: Sofie Donald JakeMRN: [id number] Location: [place] [address]/RW-[id number] _Daily Note:IV/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 No acute issues overnight. BM-, Flatus+. Pain -. N-.Denies SoB/CP.O:Current hospital medications:phenol 1 Lockridge (CHLORASEPTIC) 1 [place] MUCOUS MEMBRANE (TOPICAL MOUTH ANDTHROAT) q 2 H PRNdextrose 5% in NaCl 0.45% with 20 mEq/L KCl iv infusion 100 mL/hrINTRAVENOUS CONTINUOUSmorphine FRUIT AND VEGETABLE FACTORY WORKER 1 mg/mL in NaCl 0.9% 100 mL INTRAVENOUS CONTINUOUSmorphine 1 mg/mL FRUIT AND VEGETABLE FACTORY WORKER CLINICIAN DOSE 1 mg 1 mg INTRAVENOUS [...] lb 6.4 oz) SpO2 96% BMI 26.72 kg/m1Nvtebu/Output Summary (Last 24 hours) at 01/11/17 0755Last [...] not displayed.Liver Function, Amylase, AND LipaseRecent Labs 535 144 [id number] 8.1 6.9 6.1 < > --ALB 4.1 4.0 3.5 < > --ALT 12 51* 46* < > --AST 37 91* 81* < > --ALKPHOS 207* 185* 130 < > --TBILI 0.4 0.4 0.4 < > --LACT -- -- -- -- 1.0< > = values in this interval not displayed.CoagsRecent Labs 01/09/1706253204OGII 28.1 26.8 27.7INR 1.1 1.1 1.1*A review of daily goals, interventions, and plan of care with themultidisciplinary team and patient has been conducted. The patient?sconcerns have been addressed and he/she agrees to proceed with today?splan of care.Raghu Westbrook MDGeneral Surgery PGY-17:55 AM01/11/2017Green Team Pager: [phone]*Please page Jr. On-Call [phone]) 6pm - 6am and on weekends.Att: NG out. Fullness after eating today - I told her to take it slowly. Abdomen still benign.Some Pancytopenia on labs - could be lab error. Will recheck in AM. Ptclinically stable.TREY العليeptember 2016 3:04 PM Normal [facility] Basic Metabolic Panlon 01-10 Anion gap 12 mmol/L Normal 9-18 [facility] Comment on above: Performed By: #### CBC, BMP, MG1 ####[place] [place], [place] [phone] Calcium 7.8 mg/dL Low 8.5-10.5 [facility] Comment on above: Performed By: #### CBC, BMP, MG1 ####[place] [place], [place] [phone] Chloride 104 mmol/L Normal 98-110 [facility] Comment on above: Performed By: #### CBC, BMP, MG1 ####[place] [address] CO2 23 mmol/L Normal 23-32 [facility] Comment on above: Performed By: #### CBC, BMP, MG1 ####[place] [address] Creatinine 0.66 mg/dL Low 0.70-1.40 [facility] Comment on above: Performed By: #### CBC, BMP, MG1 ####[place] [address] eGFR (non-black) mL/min/{1.73_m2} Normal >60 [facility] Comment on above: Performed By: #### CBC, BMP, MG1 ####[place] [address] Glucose mass conc 100 mg/dL Normal 65-100 [facility] Comment on above: Performed By: #### CBC, BMP, MG1 ####[place] [address] Potassium molar conc 3.6 mmol/L Normal 3.5-5.0 [facility] Comment on above: Performed By: #### CBC, BMP, MG1 ####[place] [address] Sodium 139 mmol/L Normal 132-148 [facility] Comment on above: Performed By: #### CBC, BMP, MG1 ####[place] [address] Urea nitrogen 12 mg/dL Normal 8-25 [facility] Comment on above: Performed By: #### CBC, BMP, MG1 ####[place] [address] CBCon 01-10-2017 Erythrocyte distribution width Auto Ratio (RBC) 12.5 % Normal 11.5-15.0 [facility] Comment on above: Performed By: #### CBC BMP, MG1 ####[place] [address] Erythrocytes (RBC) 3.23 10*6/uL Low 3.90-5.20 [facility] Comment on above: Performed By: #### CBC BMP, MG1 ####[place] [address] Hematocrit (HCT) 32.3 % Low 36.0-46.0 [facility] Comment on above: Performed By: #### ROMIE BMP, MG1 ####[place] [address] Hemoglobin mass conc (Bld) 10.3 g/dL Low 11.5-15.5 [facility] Comment on above: Performed By: #### CBC BMP, MG1 ####[place] [address] MCH 31.9 pG Normal 26.0-34.0 [facility] Comment on above: Performed By: #### ROMIE BMP, MG1 ####[place] [address] MCHC mass conc (RBC) 31.9 g/dL Normal 30.5-36.0 [facility] Comment on above: Performed By: #### CBC, BMP, MG1 ####[place] [address] MCV 100.0 fL Normal 80.0-100.0 [facility] Comment on above: Performed By: #### CBC, BMP, MG1 ####[place] [address] Platelet mean volume (PMV) 11.3 fL Normal 9.0-12.7 [facility] Comment on above: Performed By: #### CBC, BMP, MG1 ####[address], [place] [phone] Platelets 113 10*3/uL Low 150-400 [facility] Comment on above: Performed By: #### CBC, BMP, MG1 ####[place] [id number] [place], [place] [phone] WBC (Leukocytes) 5.33 10*3/uL Normal 3.70-11.00 [facility] Comment on above: Performed By: #### CBC, BMP, MG1 ####[address] [phone] Magnesiumon 01-10-2017 Magnesium 1.9 mg/dL Normal 1.7-2.6 [facility] Comment on above: Performed By: #### ROMIE, BMP, MG1 ####[address] [phone] NURSING PROGon 01-10-2017 NURSING PROG HNO ID: [id number] thor: Julia (Rn) Maryse, RNService: (none)Author Type: Registered NurseType: Nursing Progress NoteFiled: 01/10/2017 5:25 PMNote Text: Nursing Progress NotePatient Name: Sofie Donald JakeMRN: [id number] Location: [place] [address]/OS-CJ5H-28 _Daily Note:1700: Removed NG tube per physician order. Patient tolerated procedurewell. Ice water was provided to patient post-removal and she toleratedwell.This note was completed by: Julia Serra RN [facility] NURSING PROG HNO ID: [id number] thor: Mariluz RennerRn) Hanh, RNService: (none)Author Type: Registered NurseType: Nursing Progress NoteFiled: 01/10/2017 1:28 PMNote Text: Nursing Progress NotePatient Name: Sofie Donald LaurenN: [id number] [facility]-OX8G-70 _Daily Note: No acute issues this shift. Pt. up in chair. Ambulated inhall with walker and 1 staff assist. FRUIT AND VEGETABLE FACTORY WORKER morphine maintaining paincontrol. NGT to LCWS draining scant amount of bilious fluid.BS-hypoactive. IS use encouraged. Call light within reach. NPO exeptsmeds. 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 No acute issues overnight. BM-, Flatus-. Pain -. N-.Denies SoB/CP.O:Current hospital medications:phenol 1 Lockridge (CHLORASEPTIC) 1 [place] MUCOUS MEMBRANE (TOPICAL MOUTH ANDTHROAT) q 2 H PRNmorphine FRUIT AND VEGETABLE FACTORY WORKER 1 mg/mL in NaCl 0.9% 100 mL INTRAVENOUS CONTINUOUSmorphine 1 mg/mL FRUIT AND VEGETABLE FACTORY WORKER CLINICIAN DOSE 1 mg 1 mg INTRAVENOUS [...] lb 6.4 oz) SpO2 98% BMI 26.72 kg/f8Zaltbn/Output Summary (Last 24 hours) at 01/10/17 1006Last data filed at 01/10/17 0900 Gross per 24 hourIntake 3690 mlOutput 1550 mlNet 2140 mlGeneral Appearance: Well appearing, alert, in no acute distress,well-hydrated, well nourished.Abdomen: soft, appropriately tenderIncision C/D/IDrain: serosanguinousCBC, BMP, MG, PHOSRecent Labs 01/09/1706975916MJO 5.33 13.84* 10.34 < > 7.41HB 10.3* [...] displayed.Liver Function, Amylase, AND LipaseRecent Labs 144 990216YRLXC 8.1 6.9 6.1 < > --ALB 4.1 4.0 3.5 < > --ALT 12 51* 46* < > --AST 37 91* 81* < > --ALKPHOS 207* 185* 130 < > --TBILI 0.4 0.4 0.4 < > --LACT -- -- -- -- 1.0< > = values in this interval not displayed.CoagsRecent Labs 01/09/1706758618ULZF 28.1 26.8 27.7INR 1.1 1.1 1.1*A review of daily goals, interventions, and plan of care with themultidisciplinary team and patient has been conducted. The patient?sconcerns have been addressed and he/she agrees to proceed with today?splan of care.Raghu Westbrook MDGeneral Surgery PGY-110:06 AM01/10/2017Green Team Pager: [phone]*Please page Jr. On-Call ([phone]) 6pm - 6am and on weekends.Att: As above. Pt seen at 1000 today. Minimal pain, and abdomen benign. NG output decreasing; will consider clamp trial later vs DC of NGtomorrow AM.Reji Sampson, TREYeptember 2016 5:59 PM Normal [facility] Toxicology Screen,Uron 01-10 Amphetamines, Urine Negative Normal Negative [facility] Comment on above: Result Comment: Cutoff threshold at 1000 ng/mL.Detection of any drug(s) is presumptive only. For confirmation by alternative methods contact the Laboratory within 5 days. For medical purposes only. Documented cross-reactivities (false positives) on file in Laboratory. Performed By: #### U TOX2 ####[place] [address] Barbiturates, Urine Negative Normal Negative [facility] Comment on above: Result Comment: Cutoff threshold at 200 ng/mL.Detection of any drug(s) is presumptive only. For confirmation by alternative methods contact the Laboratory within 5 days. For medical purposes only. Documented cross-reactivities (false positives) on file in Laboratory. Performed By: #### U TOX2 ####[place] [address] Benzodiazepines, Ur Positive Critically abnormal Negative [facility] Comment on above: Result Comment: Cutoff threshold at 200 ng/mL.Detection of any drug(s) is presumptive only. For confirmation by alternative methods contact the Laboratory within 5 days. For medical purposes only. Documented cross-reactivities (false positives) on file in Laboratory. Performed By: #### U TOX2 ####[place] [address] Cannabinoids, Urine Negative Normal Negative [facility] Comment on above: Result Comment: Cutoff threshold at 50 n g/mL.Detection of any drug(s) is presumptive only. For confirmation by alternative methods contact the Laboratory within 5 days. For medical purposes only. Documented cross-reactivities (false positives) on file in Laboratory. Performed By: #### U TOX2 ####[place] [address] Cocaine, Urine Negative Normal Negative [facility] Comment on above: Result Comment: Cutoff threshold at 300 ng/mL.Detection of any drug(s) is presumptive only. For confirmation by alternative methods contact the Laboratory within 5 days. For medical purposes only. Documented cross-reactivities (false positives) on file in Laboratory. Performed By: #### U TOX2 ####[place] [address] Ethanol, Urine <11 Normal <11 [facility] Comment on above: Performed By: #### UTOX2 ####[facility] [id number] [place] [address] Opiates, Urine Positive Critically abnormal Negative [facility] Comment on above: Result Comment: Cutoff threshold at 300 ng/mL.Detection of any drug(s) is presumptive only. For confirmation by alternative methods contact the Laboratory within 5 days. For medical purposes only. Documented cross-reactivities (false positives) on file in Laboratory. Performed By: #### U TOX2 ####[place] [phone] Oxycodone, Urine Negative Normal Negative [facility] Comment on above: Result Comment: Cutoff threshold at 100 ng/mL.Detection of any drug(s) is presumptive only. For confirmation by alternative methods contact the Laboratory within 5 days. For medical purposes only. Documented cross-reactivities (false positives) on file in Laboratory. Performed By: #### U TOX2 ####[place] [phone] Phencyclidine, Urine Negative Normal Negative [facility] Comment on above: Result Comment: Cutoff threshold at 25 n g/mL.Detection of any drug(s) is presumptive only. For confirmation by alternative methods contact the Laboratory within 5 days. For medical purposes only. Documented cross-reactivities (false positives) on file in Laboratory. Performed By: #### U TOX2 ####[place] [phone] ANES PREOPon 01-09-2017 ANES PREOP HNO ID: [id number] thor: Joe RomeroeService: AnesthesiologyAuthor Type: AnesthesiologistType: Anesthesia PreOpFiled: 01/09/2017 11:54 AMNote Text:REGIONAL ANESTHESIOLOGY DAY OF SURGERY NOTEPATIENT NAME: Sofie Donald JakeMRN: [id number]: 1955Procedure(s) (LRB):EXPLORATORY LAPAROTOMY ADULT (N/A)LAPAROSCOPY DIAGNOSTIC (N/A)Surgeon(s):Adis LanderosEstimated body mass index is 26.72 kg/(m2) as calculated from thefollowing: Height as of this encounter: 154.9 cm (5' 1 ). Weight as of this encounter: 64.1 kg (141 lb 6.4 oz).ASA Class: 3EAdequate NPO status: YesAllergies:ALLERGIESAllerge n Reactions- Penicillins Vomiting- Sulfa (Sulfonamide * RashAirway Assessment: MP 3; Neck ROM: Limited Extension; Airway Evaluation:Small Mouth OpeningDentition: Teeth intactSymptoms of Sleep Apnea: DeniesMost recent lab results:Hemoglobin 12.3 01/09/2017Hematocrit 37.2 01/09/2017Potassium 3.8 01/09/2017Platelet Count 180 01/09/2017PT Sec 11.6 01/09/2017APTT 28.1 01/09/2017PT INR 1.1 01/09/2017Creatinine 0.58 01/09/2017EKG:sinus tachycardiaVitals: 01/10/1704140BP: 122/72 146/78 140/73 119/75Pulse: 108 111 96 [...] contains updated information obtained within 48 hours ofSurgery/Procedure.SIGNATURE : Joe Aguilar MD PATIENT NAME: Sofie AdrianDATE: January 09, 2017 : 11:50 AM PAGER/CONTACT #: Normal [facility] APTTon 01-09-2017 aPTT 28.1 s Normal 23.0-32.4 [facility] Comment on above: Result Comment: Unfractionated [...] laboratory APTT reagent in use throughout the [facility]. Performed By: #### P T, PTT ####[facility] [place], [place] [phone] aPTT 26.8 s Normal 23.0-32.4 [facility] Comment on above: Result Comment: Unfractionated [...] laboratory APTT reagent in use throughout the [facility]. Performed By: #### C BC, PT, PTT, BMP, MG1, PHOS ####[facility] [place], [place] [phone] aPTT 27.7 s Normal 23.0-32.4 [facility] Comment on above: Result Comment: Unfractionated [...] laboratory APTT reagent in use throughout the [facility]. Performed By: #### C BC, PT, PTT, BMP, MG1, PHOS ####[facility] [place], [place] [phone] BRIEF OP NOTon 01-09-2017 BRIEF OP NOT HNO ID: [id number] thor: Tanner Laneervice: General SurgeryAuthor Type: ResidentType: Brief Op NoteFiled: 01/09/2017 2:26 PMNote Text:BRIEF OPERATIVE / PROCEDURE NOTELOG ID: [id number]/Procedure Date: 01/09/2017Incision/Procedure Start Time: 12:48 PMIncision Close/Procedure End Time: 2:08 PMSurgeon(s)/Proceduralist(s) and Job Printer Apprentice(s):Surgeon(s) and Role:Panel 1: * Adis Landeros - Primary * Tanner Ordoñez - Resident - AssistingPanel 2: * Adis Landeros - PrimaryProcedure(s):Laparosco pic lysis of adhesionsAnesthesia: GeneralFindings: strangulated internal hernia caused by interloop adhesions,bowel appeared hemorrhagic but viable, doppler performed with strongsignalsEstimated Blood Loss: 10 ccSpecimens: NoneDrains: 19 Fr round drain in LLQWound Classification: Class 1, operative wound clean, non-traumatic, withno inflammation encountered, no break in technique, gastrointestinal andgenitor-urinary tracts not enteredPre-Op/Pre-Procedure Diagnosis: Small bowel obstructionPost-Op/Post-Proce dure Diagnosis: Small bowel obstruction, internal herniaSIGNATURE: Tanner Ordoñez MD PATIENT NAME: Sofie AdrianDATE: January 09, 2017 : 2:24 PM PHONE: [phone] Normal [facility] Basic Metabolic Panlon 01-09 Anion gap 18 mmol/L Normal 9-18 [facility] Comment on above: Performed By: #### CBC, PT, PTT, BMP, MG 1, PHOS ####[place] [phone] Calcium 8.6 mg/dL Normal 8.5-10.5 [facility] Comment on above: Performed By: #### CBC, PT, PTT, BMP, MG 1, PHOS ####[place] [phone] Chloride 102 mmol/L Normal 98-110 [facility] Comment on above: Performed By: #### CBC, PT, PTT, BMP, MG 1, PHOS ####[place] [phone] CO2 18 mmol/L Low 23-32 [facility] Comment on above: Performed By: #### CBC, PT, PTT, BMP, MG 1, PHOS ####[place] [phone] Creatinine 0.58 mg/dL Low 0.70-1.40 [facility] Comment on above: Performed By: #### CBC, PT, PTT, BMP, MG 1, PHOS ####[place] [phone] eGFR (non-black) mL/min/{1.73_m2} Normal >60 [facility] Comment on above: Performed By: #### CBC, PT, PTT, BMP, MG 1, PHOS ####[place] [phone] Glucose mass conc 171 mg/dL High 65-100 [facility] Comment on above: Performed By: #### CBC, PT, PTT, BMP, MG 1, PHOS ####[place] [address] Potassium molar conc 3.8 mmol/L Normal 3.5-5.0 [facility] Comment on above: Performed By: #### CBC, PT, PTT, BMP, MG 1, PHOS ####[place] [address] Sodium 138 mmol/L Normal 132-148 [facility] Comment on above: Performed By: #### CBC, PT, PTT, BMP, MG 1, PHOS ####[place] [address] Urea nitrogen 12 mg/dL Normal 8-25 [facility] Comment on above: Performed By: #### CBC, PT, PTT, BMP, MG 1, PHOS ####[place] [address] Anion gap 16 mmol/L Normal 9-18 [facility] Comment on above: Performed By: #### CBC, PT, PTT, BMP, MG 1, PHOS ####[place] [address] Calcium 8.8 mg/dL Normal 8.5-10.5 [facility] Comment on above: Performed By: #### CBC, PT, PTT, BMP, MG 1, PHOS ####[place] [address] Chloride 100 mmol/L Normal 98-110 [facility] Comment on above: Performed By: #### CBC, PT, PTT, BMP, MG 1, PHOS ####[place] [address] CO2 20 mmol/L Low 23-32 [facility] Comment on above: Performed By: #### CBC, PT, PTT, BMP, MG 1, PHOS ####[place] [id number] Creatinine 0.54 mg/dL Low 0.70-1.40 [facility] Comment on above: Performed By: #### CBC, PT, PTT, BMP, MG 1, PHOS ####[place] [address] eGFR (non-black) mL/min/{1.73_m2} Normal >60 [facility] Comment on above: Performed By: #### CBC, PT, PTT, BMP, MG 1, PHOS ####[place] [address] Glucose mass conc 159 mg/dL High 65-100 [facility] Comment on above: Performed By: #### CBC, PT, PTT, BMP, MG 1, PHOS ####[place] [address] Potassium molar conc 3.8 mmol/L Normal 3.5-5.0 [facility] Comment on above: Performed By: #### CBC, PT, PTT, BMP, MG 1, PHOS ####[place] [address] Sodium 136 mmol/L Normal 132-148 [facility] Comment on above: Performed By: #### CBC, PT, PTT, BMP, MG 1, PHOS ####[place] [address] Urea nitrogen 13 mg/dL Normal 8-25 [facility] Comment on above: Performed By: #### CBC, PT, PTT, BMP, MG 1, PHOS ####[place] [address] CASE MANAGEMon 01-09-2017 CASE MANAGEM HNO ID: [id number] thor: Kathryn Coley (Lsw)rvice: Care ManagementAuthor Type: Social WorkerType: Care Mgt Progress NoteFiled: 01/09/2017 3:10 PMNote Text:CARE MANAGEMENT PROGRESS NOTESERVICE DATE: 01/09/2017SERVICE TIME: 3:00 PM LOS: 1 dayNeeds Prior to Discharge: To Be Determined;Other: See Comment ([facility]Wattempted initial assessment process. Pt currently at surgery. CM willtry again another time. )SIGNATURE: NYASIA Higgins PATIENT NAME: Sofie AdrianDATE: January 09, 2017 : 3:10 PM PAGER/CONTACT #: [phone] Normal [facility] CBCon 01-09-2017 Erythrocyte distribution width Auto Ratio (RBC) 12.4 % Normal 11.5-15.0 [facility] Comment on above: Performed By: #### CBC, PT, PTT, BMP, MG 1, PHOS ####[place] [address] Erythrocytes (RBC) 3.82 10*6/uL Low 3.90-5.20 [facility] Comment on above: Performed By: #### CBC, PT, PTT, BMP, MG 1, PHOS ####[place] [phone] Hematocrit (HCT) 37.2 % Normal 36.0-46.0 [facility] Comment on above: Performed By: #### CBC, PT, PTT, BMP, MG 1, PHOS ####[place] [address] Hemoglobin mass conc (Bld) 12.3 g/dL Normal 11.5-15.5 [facility] Comment on above: Performed By: #### CBC, PT, PTT, BMP, MG 1, PHOS ####[place] [address] MCH 32.2 pG Normal 26.0-34.0 [facility] Comment on above: Performed By: #### CBC, PT, PTT, BMP, MG 1, PHOS ####[place] [address] MCHC mass conc (RBC) 33.1 g/dL Normal 30.5-36.0 [facility] Comment on above: Performed By: #### CBC, PT, PTT, BMP, MG 1, PHOS ####[place] [id number] MCV 97.4 fL Normal 80.0-100.0 [facility] Comment on above: Performed By: #### CBC, PT, PTT, BMP, MG 1, PHOS ####[place] [id number] Platelet mean volume (PMV) 11.0 fL Normal 9.0-12.7 [facility] Comment on above: Performed By: #### CBC, PT, PTT, BMP, MG 1, PHOS ####[place] [id number] Platelets 180 10*3/uL Normal 150-400 [facility] Comment on above: Performed By: #### CBC, PT, PTT, BMP, MG 1, PHOS ####[place] [id number] WBC (Leukocytes) 13.84 10*3/uL High 3.70-11.00 [facility] Comment on above: Performed By: #### CBC, PT, PTT, BMP, MG 1, PHOS ####[place] [id number] Erythrocyte distribution width Auto Ratio (RBC) 12.7 % Normal 11.5-15.0 [facility] Comment on above: Performed By: #### CBC, PT, PTT, BMP, MG 1, PHOS ####[place] [id number] Erythrocytes (RBC) 3.80 10*6/uL Low 3.90-5.20 [facility] Comment on above: Performed By: #### CBC, PT, PTT, BMP, MG 1, PHOS ####[place] [id number] Hematocrit (HCT) 36.7 % Normal 36.0-46.0 [facility] Comment on above: Performed By: #### CBC, PT, PTT, BMP, MG 1, PHOS ####[place] [id number] Hemoglobin mass conc (Bld) 12.4 g/dL Normal 11.5-15.5 [facility] Comment on above: Performed By: #### CBC, PT, PTT, BMP, MG 1, PHOS ####[place] [address] MCH 32.6 pG Normal 26.0-34.0 [facility] Comment on above: Performed By: #### CBC, PT, PTT, BMP, MG 1, PHOS ####[place] [address] MCHC mass conc (RBC) 33.8 g/dL Normal 30.5-36.0 [facility] Comment on above: Performed By: #### CBC, PT, PTT, BMP, MG 1, PHOS ####[place] [address] MCV 96.6 fL Normal 80.0-100.0 [facility] Comment on above: Performed By: #### CBC, PT, PTT, BMP, MG 1, PHOS ####[place] [address] Platelet mean volume (PMV) 11.1 fL Normal 9.0-12.7 [facility] Comment on above: Performed By: #### CBC, PT, PTT, BMP, MG 1, PHOS ####[place] [id number] Platelets 186 10*3/uL Normal 150-400 [facility] Comment on above: Performed By: #### CBC, PT, PTT, BMP, MG 1, PHOS ####[place] [id number] WBC (Leukocytes) 10.34 10*3/uL Normal 3.70-11.00 [facility] Comment on above: Performed By: #### CBC, PT, PTT, BMP, MG 1, PHOS ####[place] [id number] CONSULTon 01-09-2017 CONSULT HNO ID: [id number] thor: Araceli Gamez (Jovana) Mcneil, RNService: Wound/OstomyAuthor Type: Registered NurseType: ConsultsFiled: 01/09/2017 4:01 [...] marked with single usesurgical marker.Assessment/Plan-stoma site marking complete-staffing executive to monitor daniel and place Tegaderm clear transparent dressingsas needed-Plan per surgical team, will remain available as needed.To contact Wound/Ostomy Care, please call the Wound Care Hotline at [phone] leave a message.SIGNATURE: Araceli Mcneil RN PATIENT NAME: Sofie AdrianDATE: January 09, 2017 : 4:00 PM PAGER/CONTACT #: [phone] [facility] HISTORY PHYSICALon HISTORY PHYSICAL HNO ID: [id number] thor: TREY Wolfe Reservice: ColorectalAuthor Type: ResidentType: [...] and they scanned her then discharged but zulemaurned back next morning for worsenuing pain where [...] by mouth once daily. Disp: Rfl: 09/18/2015 [id number] (PRILOSEC) 40 mg capsule Take 1 capsule by mouth once daily.(Patient taking differently: Take 40 mg by mouth twice daily.) Disp: 30capsule Rfl: 4 09/19/2015 at 0700METOPROLOL TARTRATE ORAL Take 25 mg by mouth. Disp: Rfl: 09/19/2015 [id number] HCl 20 mg tablet Take 40 mg [...] joint pain or swelling, back pain or musclepainHEMATOLOGY/LYMPHOLO GY: Negative for prolonged bleeding, bruising easily orswollen [...] or skindiscoloration. Good capillary refill., No ulcersNEURO: VQb7Oalhdij Vitals for the past 24 hrs: BP Temp Temp src Pulse Resp CbK05101/08/17 2301 151/92 36.4 ?C (97.6 ?F) Oral [...] LLQ ttp. S.Lactate 1. Concern forSBO.-Admission to [facility]-NPO, NGT-IVF @ 100 ml/hr-strict I AND O-Pain meds: tylenol and morphine-Zofran available PRN-KUB stat to confirm NGT placement-Lab, type and screen, stat-DVT prophylaxis: SCD and SQHSIGNATURE: Eloise Langley MD PATIENT NAME: Sofie AdrianDATE: January 08, 2017 : 11:15 PM PAGER/CONTACT #: [phone] Normal [facility] Magnesiumon 01-09-2017 Magnesium 1.7 mg/dL Normal 1.7-2.6 [facility] Comment on above: Performed By: #### CBC, PT, PTT, BMP, MG 1, PHOS ####[place] [id number] Magnesium 1.9 mg/dL Normal 1.7-2.6 [facility] Comment on above: Performed By: #### CBC, PT, PTT, BMP, MG 1, PHOS ####[place] [id number] NURSING PROGon 01-09-2017 NURSING PROG HNO ID: [id number] thor: Rosi (Rn) RAJ Careyervice: (none)Author Type: Registered NurseType: Nursing Progress NoteFiled: 01/09/2017 10:16 AMNote Text: Nursing Progress NotePatient Name: Sofie AdrianMRN: [id number] Location: [facility]3B21/KQ-AV8I-46 _Daily Note:pt is axox3, on room air, up with assist. Ng tube in place.Plan for surgery today. No needs voiced at this time. Will continue tomonitor the patient. Updated daughter on patient's status, ok'd bypatient.Joon VERONICAJohn Adrian. Updated INSURANCE CLAIM APPROVER medication list and also c/o indigestion.Thanks. JOVANA Aranda [id number] note was completed by: Rosi Carey RN [facility] NURSING PROG HNO ID: [id number] thor: Melissa RennerRn) Salty, Elvaice: (none)Author Type: Registered NurseType: Nursing Progress NoteFiled: 01/09/2017 5:07 AMNote Text: Nursing Progress NotePatient Name: Sofie AdrianMRN: [id number] Location: [place] [address]/IV-YZ4B-65 _ 0400 Patient complaining of abdominal pain 02/03 moaning at intervalsand holding her stomach. Patient last medicated with Dilaudid 0.5 mg [id number]. Patient states it doesn't last very long. Text message sent toSurgical resident to notify.0415 Patient medicated with oxycodone 5 mg tablet as instructed bysurgical resident. NG clamped when patient took tablet.0515 NG reconnected to low suction. Patient states the Oxycodone noteffective for pain.This note was completed by: Melissa Pond RN [facility] NURSING PROG HNO ID: [id number] thor: Melissa Saucedo (Rn) Salty, Elvaice: (none)Author Type: Registered NurseType: Nursing Progress NoteFiled: 01/08/2017 11:01 PMNote Text: Nursing Progress NotePatient Name: Sofie AdrianMRN: [id number] Location: [place] [address]/FA-QN9I-53 _Transfer Note:Patient transferred into room/unit 321 from [facility] in stablecondition. Actions taken: No futher actions taken at this time. Willcontinue to monitor and check with patient. Call placed to surgicalresident for orders.This note was completed by: Melissa Pond RN Normal [facility] OPERATIVE NOon 01-09-2017 OPERATIVE NO HNO ID: [id number] thor: Adis LanderosService: General SurgeryAuthor Type: PhysicianType: Operative ReportFiled: 01/12/2017 2:34 PMNote Text:[facility] - Operative ReportBASOFIE ALEXANDER CDOB: 1955 AGE: 61 SEX: FMRN: [id number] ACCTNUM: [id number] SV: [facility] LOCATION: [address] PHYSICIAN: Adis Landeros M.D.DATE OF PROCEDURE: 01/09/2017PREOPERATIVE DIAGNOSIS: Small bowel obstruction.POSTOPERATIVE DIAGNOSIS: Same. Strangulated internal hernia.NAME OF OPERATION: Diagnostic laparoscopy and lysis of adhesions.SURGEON: Adis Landeros M.D.COMMUNICATIONS SYSTEMS ENGINEER: Tanner Ordoñez M.D.ANESTHESIA: General.ESTIMATED BLOOD LOSS: Minimal.COMPLICATIONS: [...] we placed a drain in the pelvis, j67-Mptkqv drain made to mature through the lower 5-mm port on the rightside of the abdomen. The drain was secured to the skin using 3-0nylon, and the subumbilical fascia was approximated tnoxfsnfras-rm-affru 0 Polysorb suture. All port sites were [...] was presentthrough the entire operation.Adis Landeros M.D.General SurgeryDA:[id number]: 01/09/2017 15:07:23T: 01/10/2017 01:35:34Job #: [id number] [facility] PROGRESSon 01-09-2017 Cholesterol HNO ID: [id number] thor: Tanner (Mihaela) Sharmilaice: General SurgeryAuthor Type: ResidentType: Progress NotesFiled: 01/09/2017 6:52 PMNote Text:Post-operative checkSubjective: No acute events. Pain controlled. No nausea/vomiting.Objective:Blo od pressure 112/66, pulse 90, temperature 36.9 ?C (98.4 ?F),temperature source Oral, resp. rate 17, height 154.9 cm (5' 1 ), ipwaoz00.1 kg (141 lb 6.4 oz), SpO2 97 %.General: NAD, alert, orientedLungs: nonlabored breathingAbdomen: soft, nondistended, periincisional and left sided tenderness,incisions C/D/IExtremities: warm, well perfusedAssessment and plan:61 year old female with SBO and strangulated internal hernia s/plaparoscopic lysis of adhesions. Doing well- NPO with IV fluids- NG to LIWS- Morphine FRUIT AND VEGETABLE FACTORY WORKER, tylenol for pain- SCD's and SQH for DVT prophylaxis- Encourage incentive spirometry and ambulationTanner Ordoñez MDGeneashtabula county medical center Surgery ResidentPager [phone] [facility] PROGRESS HNO ID: [id number] thor: Adis LanderosService: ColorectalAuthor Type: PhysicianType: Progress NotesFiled: 01/09/2017 12:21 PMNote Text:Sofie Donald [id number] SERVICE: Teresa HollingsworthSUBJECTIVEPatient is in a lot of pain, writhing in her bedNG in place, with moderately thick outputNo flatus no BMOBJECTIVEI/O:Date 01/08/17 07 - 01/09/17 0659 01/09/17 07 - 01/10/17 0659Shift 9581-1532 6686-5398 7617-3125 24 Hour Total 5241-1501 0713-94105136-9364 24 Hour TotalINTAKE IV 524 524 NS [...] lb 6.4 oz) SpO2 94% BMI 26.72 kg/b9XPGYUNK: Alert, no distress, cooperativeLUNGS: Lungs clear to auscultation, Good diaphragmatic excursionCARDIAC: Normal S1 and S2; no rubs, murmurs, or gallopsABDOMEN: Abdomen soft, moderately distended, diffusely tender with MPT inLLQ, BS increased, No masses or organomegaly, NG tube with bileous outputEXTREMITIES: Extremities normal, no deformities, edema, clubbing or skindiscoloration.NEURO: ZSp4Hydq:Current Facility-Administered Medications:piperacillin-tazo bactam 3.375 g in dextrose (iso-osmotic) 50 mL (ZOSYN)3.375 g INTRAVENOUS q 6 H Bessie S (Pa) Miglionicomorphine FRUIT AND VEGETABLE FACTORY WORKER 1 mg/mL in NaCl 0.9% 100 mL INTRAVENOUS CONTINUOUS Bessie S(Pa) Miglionicomorphine 1 mg/mL FRUIT AND VEGETABLE FACTORY WORKER CLINICIAN DOSE 1 mg 1 mg INTRAVENOUS q 6 H PRNMelissa S (Pa) MiglionicoFLUoxetine 40 mg cap(s) (PROzac) 40 mg ORAL DAILY Sahned (Res) MD Korin40 mg at 01/09/17 0757NaCl 0.9% iv infusion 125 mL/hr INTRAVENOUS CONTINUOUS Bessie S (Pa)Miglionico Last Rate: 125 mL/hr at 01/09/17 075 125 mL/hr at [id number] 4 mg tab(s) (ZOFRAN) 4 mg ORAL [...] Diet : NPO- Pain management: Start Morphine FR[employer] VEGETABLE FACTORY WORKER, Tylenol- Nausea management: Zofran- DVT prophylaxis: Heparin- Trujillo status: Please place trujillo for better hemodynamic monitoring- Encourage IS and ambulation- Strict IANDOs- Seen and discussed with senior resident, will discuss with staffAkhil Weathers MD MPHPGY1, Department of General SurgeryPager: Alex Rodriguezept2016 9:12 AMSurgery attendingI have seen and examined [...] related to surgeryand/or anesthesia.Adis Landeros, Evan Landeros, [facility] [place] 12:20 PM Normal [facility] Phosphoruson 01-09-2017 Phosphate 3.0 mg/dL Normal 2.5-4.5 [facility] Comment on above: Performed By: #### CBC, PT, PTT, BMP, MG 1, PHOS ####[place] [address] [place], [place] [phone] Phosphate 3.9 mg/dL Normal 2.5-4.5 [facility] Comment on above: Performed By: #### CBC, PT, PTT, BMP, MG 1, PHOS ####[place] [address]1201 [place], [place] [phone] Protimeon 01-09-2017 INR Coag RelTime (Bld) 1.1 {INR} Normal 0.9-1.3 [facility] Comment on above: Result Comment: Vitamin K Antagonist (VK A) Therapeutic Range: INR 2 to 3 (Target INR of 2.5)Note: For patients treated with VKA drugs, such as warfarin, the [place] [employer] 2012 Guideline recommends [...] 3).Dinesh GH, et al. Chest 2012, 141:7S-47SNishmarielena RA, et al. [facility] 2017, 70: 252-289 Performed By: #### P T, PTT ####[address] [phone] PT Sec 11.6 sec Normal 9.7-13.0 [facility] Comment on above: Performed By: #### PT, PTT ####[address] [phone] INR Coag RelTime (Bld) 1.1 {INR} Normal 0.9-1.3 [facility] Comment on above: Result Comment: Vitamin K Antagonist (VK A) Therapeutic Range: INR 2 to 3 (Target INR of 2.5)Note: For patients treated with VKA drugs, such as warfarin, the [place] [employer] 2012 Guideline recommends [...] 3.5 (target INR of 3).Dinesh LOVE et brianne. Chest 2012, 141:7S-47SNadeen LIU, et al. [facility] 2017, 70: 252-289 Performed By: #### C BC, PT, PTT, BMP, MG1, PHOS ####[place] [address] [place], [place] [phone] PT Sec 11.4 sec Normal 9.7-13.0 [facility] Comment on above: Performed By: #### CBC, PT, PTT, BMP, MG 1, PHOS ####[address] [phone] INR Coag RelTime (Bld) 1.1 {INR} Normal 0.9-1.3 [facility] Comment on above: Result Comment: Vitamin K Antagonist (VK A) Therapeutic Range: INR 2 to 3 (Target INR of 2.5)Note: For patients treated with VKA drugs, such as warfarin, the [place] [employer] 2012 Guideline recommends [...] 3).Dinesh LOVE, et al. Chest 2012, 141:7S-47SNadeen LIU, et al. [facility] 2017, 70: 252-289 Performed By: #### C BC, PT, PTT, BMP, MG1, PHOS ####[place] [address] [place], [place] [phone] PT Sec 11.1 sec Normal 9.7-13.0 [facility] Comment on above: Performed By: #### CBC, PT, PTT, BMP, MG 1, PHOS ####[facility] [place] [address] Type and Screenon 01-09-2017 ABO/RH(D) Negative [facility] Comment on above: Performed By: #### TSCR ####[facility] dowgg13960 [place] [address] Antibody Screen Negative [facility] Comment on above: Performed By: #### TSCR ####[facility] dxthi47462 [address] Urinalysis with Microscopico n 01-09-2017 Bilirubin, Urine Negative Normal Negative [facility] Comment on above: Performed By: #### UAWMIC ####[address] Comments SEE COMMENT Normal [facility] Comment on above: Result Comment: Microscopic Examination Performed Performed By: #### U AWMIC ####[address] Erythrocytes (RBC) Rare Critically abnormal Negative [facility] Comment on above: Performed By: #### UAWMIC ####[facility] [place], [place] [phone] Hemoglobin mass conc (Bld) Negative Normal [facility] Comment on above: Performed By: #### UAWMIC ####[facility] [place] [address] Leukest Trace Critically abnormal Negative [facility] Comment on above: Performed By: #### UAWMIC ####[facility] [place], [place] [phone] pH of blood 6.0 [pH] Normal 5.0-8.0 [facility] Comment on above: Performed By: #### UAWMIC ####[facility] [place], [place] [phone] Protein, Urine Negative Normal Negative [facility] Comment on above: Performed By: #### UAWMIC ####[facility] tucrzna[address]101 [place] [address] Specific Barto, Ur 1.020 Normal 1.005-1.030 [facility] Comment on above: Result Comment: Result checked and verif ied Performed By: #### U AWMIC ####[facility] [place] [address] Urine, clarity Hazy Critically abnormal Clear [facility] Comment on above: Performed By: #### UAWMIC ####[facility] suozdxn61097 [place] [address] Urine, color Yellow Normal Yellow [facility] Comment on above: Performed By: #### UAWMIC ####[facility] adcnuml22566 [place] [address] Urine, epithelial cells in sediment SEE COMMENT Critically abnormal Negative [facility] Comment on above: Result Comment: RareSquamous Epithelial Cells Performed By: #### U AWMIC ####[facility] [place] [address] Urine, glucose presence Negative Normal Negative [facility] Comment on above: Performed By: #### UAWMIC ####[facility] evmskvg31783 [place] [address] Urine, ketones presence Negative Normal Negative [facility] Comment on above: Performed By: #### UAWMIC ####[facility] qpsunjt10992 [place] [address] Urine, mucus presence in sediment Present Normal [facility] Comment on above: Performed By: #### UAWMIC ####[facility] bhbhzol83848 [place] [address] Urine, nitrite presence Negative Normal Negative [facility] Comment on above: Performed By: #### UAWMIC ####[facility] jrizeib37887 [place] [address] Urine, urobilinogen <2.0 Normal <2.0 [facility] Comment on above: Performed By: #### UAWMIC ####[facility] mcanjgr[address] [place], [place] [phone] WBC (Leukocytes) 5-10 Critically abnormal Negative [facility] Comment on above: Performed By: #### UAWMIC ####[facility] fvnjpcd[address] [place], [place] [phone] XR ABDOMEN 1V SUPINEon 01-09 XR ABDOMEN [...] loops of small bowel in the upper abdomen.Body Artist: GIO Transcribe Date/Time: Jan 09 2017 12:19ADictated by : GLENN MARTINEZ MDThis examination was interpreted and the report reviewed and electronically signed by: GLENN MARTINEZ MD on Jan 09 2017 12:20AM [id number] Normal [facility] XR CHEST 1V FRONTALon 2016 XR [...] volumes with suggestion of mild left base atelectasis.Body Artist: GIO Transcribe Date/Time: Jan 09 2017 6:10ADictated by : SHAAN RADER MDThis examination was interpreted and the report reviewed and electronically signed by: SHAAN RADER MD on Jan 09 2017 6:13AM [id number] Normal [facility] HOSPon 01-08-2017 HOSP Patient:Sofie Adrian CMRN: Height:5' 1 (1.549 m)Weight:141 lb 6.4 oz (64.139 kg)Outpatient Medications as of 01/09/17:amitriptyline (ELAVIL) 25 mg tabletcelecoxib (CELEBREX) 200 mg capsulehydroCHLOROthiazide (HYDRODIURIL, ESIDRIX) 25 mg tabletHYDROcodone-acetaminoph en (NORCO) 5-325 mg per tabletmeloxicam (MOBIC) 15 mg tabletrOPINIRole (REQUIP) 2 mg tabletfebuxostat (ULORIC) 40 mg tabalbuterol HFA (VENTOLIN HFA) 90 mcg/actuation inhaleriv contrast (radiology procedure)enteric contrast (radiology procedure)atorvastatin (LIPITOR) 10 mg tabletCetirizine 10 mg capOmeprazole (PRILOSEC) 40 mg capsuleMETOPROLOL TARTRATE ORALFLUoxetine HCl 20 mg tablettraMADol 50 mg tabletOTC PRODUCTAdmission/Clinic Administered Medications as of 01/09/17:piperacillin-tazobact am 3.375 g in dextrose (iso-osmotic) 50 mL (ZOSYN)morphine FRUIT [employer] VEGETABLE FACTORY WORKER 1 mg/mL in NaCl 0.9% 100 mLmorphine 1 mg/mL FRUIT AND VEGETABLE FACTORY WORKER CLINICIAN DOSE 1 mgFLUoxetine 40 mg cap(s) [...] post surgery [Z98.890]SBO (small bowel obstruction) (HCC) [K56.69]Allergies:Penicillins Sulfa (Sulfonamide Antibiotics)Date Verified: 01/09/17Lab ValuesLab Value Units Date High LowPOTA* 3.8 mmol/L 01/09/2017 5.0 3.5HEMA* 37.2 % 01/09/2017 46.0 36.0Progress Notes ( PK3B):Melissa Pond RN, RN 01/08/2017 11:01 PM Signed Nursing Progress NotePatient Name: Sofie AdrianMRN: [id number] Location: [address]/AH-EO2U-60 _Transfer Note:Patient transferred into room/unit 321 from [facility] in stablecondition. Actions taken: No futher actions taken at this time. Will continueto monitor and check with patient. Call placed to vice president commercial bank for orders.This note was completed by: Bryan Poon MD, MD 01/09/2017 12:05 AM AddendumHISTORY AND PHYSICAL EXAMINATIONSERVICE DATE: 01/08/2017SERVICE TIME:PRIMARY CARE PHYSICIAN: TIERNEY MercerJECTSUKH COMPLAINT:HPI: This is a 61 year old female PMH HTN, HLD, PUD, COPD and h/o multiple GIbleeding PSH L TAC with DEONNA 08/2015 who presents with sharp cramping abdominalpain that started at Thursday night associtaed with nausea and vomiting. Jennifer frequent BM on Thursday (10 times). She [...] by mouth once daily. Disp: Rfl:09/18/2015 at 2099Cetirizine 10 mg cap Take by mouth once daily. Disp: Rfl: 09/18/2015 at 2099Omeprazole (PRILOSEC) 40 mg capsule Take 1 capsule [...] or skindiscoloration. Good capillary refill., No ulcersNEURO: FYb9Hevsncc Vitals for the past 24 hrs: BP Temp Temp src Pulse Resp FnW26601/08/17 2301 151/92 36.4 ?C (97.6 ?F) Oral [...] ttp. S.Lactate 1. Concern for SBO.-Admission to [facility]-NPO, NGT-IVF @ 100 ml/hr-strict I AND O-Pain meds: tylenol and morphine-Zofran available PRN-KUB stat to confirm NGT placement-Lab, type and screen, stat-DVT prophylaxis: SCD and SQHSIGNATURE: Eloise Langley MD PATIENT NAME: Sofie AdrianDATE: January 08, 2017 : 11:15 PM PAGER/CONTACT #: [phone] Anibal Pond, RN, RN 01/09/2017 5:07 AM Addendum Nursing Progress NotePatient Name: Sofie AdrianMRN: [id number] Location: [place] [address]/QA-NB8H-03 _ 0400 Patient complaining of abdominal pain 10/10 [...] RNPrevious Brielle Landeros MD 01/09/2017 12:21 PM AddendumDenise Odilon [id number] SERVICE: Teresa MartinesenteSUBJECTIVEPatient is in a lot of pain, writhing in her bedNG in place, with moderately thick outputNo flatus no BMOBJECTIVEI/O:Date 01/08/17 07 - 01/09/17 0659 01/09/17 07 - 01/10/17 0659Shift 5252-9276 6570-7403 0297-5047 24 Hour Total 3529-2718 3811-8635 2300-751548 Hour TotalINTAKE IV 524 524 NS 0.9% [...] lb 6.4 oz) SpO2 94% BMI 26.72 kg/f9FAOCBME: Alert, no distress, cooperativeLUNGS: Lungs clear to auscultation, Good diaphragmatic excursionCARDIAC: Normal S1 and S2; no rubs, murmurs, or gallopsABDOMEN: Abdomen soft, moderately distended, diffusely tender with MPT in LLQ,BS increased, No masses or organomegaly, NG tube with bileous outputEXTREMITIES: Extremities normal, no deformities, edema, clubbing or skindiscoloration.NEURO: MUx7Aakx:Current Facility-Administered Medications:piperacillin-tazo bactam 3.375 g in dextrose (iso-osmotic) 50 mL (ZOSYN) 3.375 gINTRAVENOUS q 6 H Bessie S (Pa) Miglionicomorphine FRUIT AND VEGETABLE FACTORY WORKER 1 mg/mL in NaCl 0.9% 100 mL INTRAVENOUS CONTINUOUS Bessie S (Pa)Miglionicomorphine 1 mg/mL FRUIT AND VEGETABLE FACTORY WORKER CLINICIAN DOSE 1 mg 1 mg INTRAVENOUS [...] Diet : NPO- Pain management: Start Morphine FRUIT AND VEGETABLE FACTORY WORKER, Tylenol- Nausea management: Zofran- DVT prophylaxis: Heparin- Trujillo status: Please place trujillo for better hemodynamic monitoring- Encourage IS and ambulation- Strict IANDOs- Seen and discussed with senior resident, will discuss with staffAkhil Weathers MD MPHPGY1, Department of General SurgeryPager: Alex [facility]2016 9:12 AMSurgery attendingI have seen and [...] to surgery and/or anesthesia.Adis Landeros, Evan Landeros, [facility]2016 12:20 PMPrevious Debby Carey, RN, RN 01/09/2017 10:16 AM Addendum Nursing Progress NotePatient Name: Sofie Donald JakeMRN: [id number] Location: [facility]3B21/FS-YE1W-54 _Daily Note:pt is axox3, on room air, up with assist. Ng tube in place. Plan forsurgery today. No needs voiced at this time. Will continue to monitor thepatient. Updated daughter on patient's status, ok'd by patient.1016 Jake [place]. Updated INSURANCE CLAIM APPROVER medication list and also c/o indigestion.Thanks. JOVANA Aranda [id number] note was completed by: Rosi Carey RNPrevious Yoan Aguilar MD 01/09/2017 11:54 AM SignedREGIONAL ANESTHESIOLOGY DAY OF SURGERY NOTEPATIENT NAME: Sofie AdrianMRN: [id number]: 1955Procedure(s) (LRB):EXPLORATORY LAPAROTOMY ADULT (N/A)LAPAROSCOPY DIAGNOSTIC (N/A)Surgeon(s):Adis LanderosEstimated body mass index is 26.72 kg/(m2) as calculated from the following: Height as of this encounter: 154.9 cm (5' 1 ). Weight as of this encounter: 64.1 kg (141 lb 6.4 oz).ASA Class: 3EAdequate NPO status: YesAllergies:ALLERGIESAllerge n Reactions- Penicillins Vomiting- Sulfa (Sulfonamide * RashAirway Assessment: MP 3; Neck ROM: Limited Extension; Airway Evaluation: SmallMouth OpeningDentition: Teeth intactSymptoms of Sleep Apnea: DeniesMost recent lab results:Hemoglobin 12.3 01/09/2017Hematocrit 37.2 01/09/2017Potassium 3.8 01/09/2017Platelet Count 180 01/09/2017PT Sec 11.6 01/09/2017APTT 28.1 01/09/2017PT INR 1.1 01/09/2017Creatinine 0.58 01/09/2017EKG:sinus tachycardiaVitals: 01/10/1704140BP: 122/72 146/78 140/73 119/75Pulse: 108 111 96 [...] Post SurgerySbo (Small Bowel Obstruction) ([facility])PAST MEDICAL HISTORYDiagnosis Date- Acid reflux- Alcohol abuse Bottle of wine daily- Arthritis- Carotid stenosis medical management- COPD (chronic obstructive pulmonary disease) ([facility]) mild obstruction on PFT's 09/2013- Former [...] Takes 2 PO QDInpatient medications reviewed in [facility].I have interviewed and examined the patient. I have reviewed the medical recordand/or the pre-anesthesia evaluation, pertinent labs, and test results.Significant changes in the patient's condition since the History and Physical,not otherwise documented in primary service progress notes: NoThis contains updated information obtained within 48 hours of Surgery/Procedure.SIGNATURE: Joe Aguilar MD PATIENT NAME: Sofie AdrianDATE: January 09, 2017 : 11:50 AM PAGER/CONTACT #: [facility] OT-XR KUB 1 VIEW IMPORTon OT-XR KUB 1 VIEW IMPORT Images were obtained outside of [facility] [id number] [facility] SR-CT ABD/PELVIS W CON IMPOR Ton 01-08-2017 SR-CT ABD/PELVIS W CON IMPORT Images were obtained outside of [facility] [id number] [facility] SR-CT ABD/PELVIS WO CON IMPO RTon 01-07-2017 SR-CT ABD/PELVIS WO CON IMPORT Images were obtained outside of [facility] [id number] Normal [facility] Vital Signs Date Time Vital Sign Value Performing Clinician Nathalie stone 05-10-2024 15:57-0500 Body height 146.3 cm Rosario Bia CORRECTIONS OFFICER Work Phone: [facility] 05-10-2024 15:57-0500 Body mass index (BMI) [Ratio] 25.51 kg/m2 Rosario Claribelz CORRECTIONS OFFICER Work Phone: [facility] 05-10-2024 15:57-0500 Body temperature 98.8 [degF] Rosario Claribelz CORRECTIONS OFFICER Work Phone: [facility] 05-10-2024 15:57-0500 Body weight 54.61 kg Rosario Barberhcharlenez CORRECTIONS OFFICER Work Phone: [facility] 05-10-2024 15:57-0500 Diastolic blood pressure 78 mm[Hg] Rosario Barberhholz CORRECTIONS OFFICER Work Phone: [facility] 05-10-2024 15:57-0500 Heart rate 84 /min Rosario Barberhholz CORRECTIONS OFFICER Work Phone: [facility] 05-10-2024 15:57-0500 Respiratory rate 19 /min Rosario Barberhholz CORRECTIONS OFFICER Work Phone: [facility] 05-10-2024 15:57-0500 SaO2% (BldA) [Mass fraction] 98 % Rosario Claribelz CORRECTIONS OFFICER Work Phone: [facility] 05-10-2024 15:57-0500 Systolic blood pressure 108 mm[Hg] Rosario Aichholz CORRECTIONS OFFICER Work Phone: [facility] 04-05-2024 13:23-0500 Body height 146.3 cm Rosario Barberhholz CORRECTIONS OFFICER Work Phone: [facility] 04-05-2024 13:23-0500 Body mass index (BMI) [Ratio] 25.3 kg/m2 Rosario Amezquita CORRECTIONS OFFICER Work Phone: [facility] 04-05-2024 13:23-0500 Body temperature 97.59 [degF] Rosario Amezquita CORRECTIONS OFFICER Work Phone: [facility] 04-05-2024 13:23-0500 Body weight 54.16 kg Rosario Amezquita CORRECTIONS OFFICER Work Phone: [facility] 04-05-2024 13:23-0500 Diastolic blood pressure 76 mm[Hg] Rosario Sanfordz CORRECTIONS OFFICER Work Phone: [facility] 04-05-2024 13:23-0500 Heart rate 78 /min Rosario Sanfordz CORRECTIONS OFFICER Work Phone: [facility] 04-05-2024 13:23-0500 Respiratory rate 18 /min Rosario Amezquita CORRECTIONS OFFICER Work Phone: [facility] 04-05-2024 13:23-0500 SaO2% (BldA) [Mass fraction] 98 % Rosario Amezquita CORRECTIONS OFFICER Work Phone: [facility] 04-05-2024 13:23-0500 Systolic blood pressure 120 mm[Hg] Rosario Sanfordz CORRECTIONS OFFICER Work Phone: [facility] 03-02-2024 14:24-0500 Body height 146.3 cm Rosario Sanfordz CORRECTIONS OFFICER Work Phone: [facility] 03-02-2024 14:24-0500 Body mass index (BMI) [Ratio] 25.39 kg/m2 Rosariocatherine Sanfordz CORRECTIONS OFFICER Work Phone: [facility] 03-02-2024 14:24-0500 Body temperature 98.71 [degF] Rosario Sanfordz CORRECTIONS OFFICER Work Phone: [facility] 03-02-2024 14:24-0500 Body weight 54.34 kg Rosariocatherine Sanfordz CORRECTIONS OFFICER Work Phone: [facility] 03-02-2024 14:24-0500 Diastolic blood pressure 84 mm[Hg] Rosario Barberhholz CORRECTIONS OFFICER Work Phone: [facility] 03-02-2024 14:24-0500 Heart rate 69 /min Rosario Aichholz CORRECTIONS OFFICER Work Phone: [facility] 03-02-2024 14:24-0500 Respiratory rate 19 /min Rosario Aichholz CORRECTIONS OFFICER Work Phone: [facility] 03-02-2024 14:24-0500 SaO2% (BldA) [Mass fraction] 98 % Rosario Aichholz CORRECTIONS OFFICER Work Phone: [facility] 03-02-2024 14:24-0500 Systolic blood pressure 122 mm[Hg] Rosario Aichholz CORRECTIONS OFFICER Work Phone: [facility] 06-11-2023 13:30-0500 Body height 146.3 cm Rosario Barberhholz CORRECTIONS OFFICER Work Phone: [facility] 06-11-2023 13:30-0500 Body mass index (BMI) [Ratio] 28.9 kg/m2 Rosario Aichholz CORRECTIONS OFFICER Work Phone: [facility] 06-11-2023 13:30-0500 Body temperature 97.11 [degF] Rosario Barberhholz CORRECTIONS OFFICER Work Phone: [facility] 06-11-2023 13:30-0500 Body weight 61.87 kg Rosario Barberhholz CORRECTIONS OFFICER Work Phone: [facility] 06-11-2023 13:30-0500 Diastolic blood pressure 78 mm[Hg] Rosario Aichholz CORRECTIONS OFFICER Work Phone: [facility] 06-11-2023 13:30-0500 Heart rate 75 /min Rosario Aichholz CORRECTIONS OFFICER Work Phone: [facility] 06-11-2023 13:30-0500 Respiratory rate 18 /min Rosario Aichholz CORRECTIONS OFFICER Work Phone: [facility] 06-11-2023 13:30-0500 SaO2% (BldA) [Mass fraction] 95 % Rosario Bia CORRECTIONS OFFICER Work Phone: [facility] 06-11-2023 13:30-0500 Systolic blood pressure 122 mm[Hg] Rosario Bia CORRECTIONS OFFICER Work Phone: [facility] Encounters Encounter Date Encounter Type Care Provider Facility Start: 10-09-2024 End: 10-10-2024 Refill Rosario Bia CORRECTIONS OFFICER Work Phone: [facility] Comment on above: Osteoporosis, post-m enopausal ; Age related osteoporosis, unspecified pathological fracture presence Start: 10-06-2024 End: 10-06-2024 Clinisync Result Encounter Generic External Data Provider [facility] Unsolicited Start: 10-06-2024 End: 10-06-2024 Clinisync Result Encounter Generic External Data Provider [facility] External [facility] Unsolicited Start: 06-28-2024 End: 06-28-2024 Refill Rosario Bia [employer]RECTIONS OFFICER Work Phone: [facility] Comment on above: Chronic bilateral lo w back pain without sciatica Start: 06-28-2024 End: 06-28-2024 Telephone encounter Rosario Amezquita CORRECTIONS OFFICER Work Phone: [facility] Start: 06-07-2024 End: 06-07-2024 Refill Rosario Bia CORRECTIONS OFFICER Work Phone: [facility] Comment on above: Age-related osteopor osis without current pathological fracture ([facility]) Start: 05-26-2024 End: 05-26-2024 Clinisync Result Encounter Rosario Amezquita CORRECTIONS OFFICER Work Phone: [facility] Unsolicited Start: 05-26-2024 End: 05-26-2024 Clinisync Result Encounter Rosario Bia CORRECTIONS OFFICER Work Phone: [facility] Unsolicited Start: 05-14-2024 End: 05-15-2024 Refill Rosario Aichholz CORRECTIONS OFFICER Work Phone: [facility] Comment on above: Gastroesophageal ref lux disease without esophagitis Start: 05-10-2024 End: 05-10-2024 Office outpatient visit 15 minutes Rosario Amezquita CORRECTIONS OFFICER Work Phone: [facility] Comment on above: Viral upper respirat ory tract infection (Primary Dx) Start: 05-10-2024 End: 05-10-2024 ambulatory ROSARIO AICHHOLZ Not Available Start: 05-10-2024 End: 05-10-2024 Bamboo flowsheet Rosario Barberhholz CORRECTIONS OFFICER Work Phone: [facility] Start: 05-10-2024 End: 05-10-2024 Bamboo flowsheet Rosario Aichholz CORRECTIONS OFFICER Work Phone: [facility] Start: 04-05-2024 End: 04-05-2024 Bamboo flowsheet Rosario Claribelz CORRECTIONS OFFICER Work Phone: [facility] Start: 04-05-2024 End: 04-05-2024 Bamboo flowsheet Rosario Aichholz CORRECTIONS OFFICER Work Phone: [facility] Start: 04-05-2024 End: 04-05-2024 Office outpatient visit 25 minutes Rosario Claribelz CORRECTIONS OFFICER Work Phone: [facility] Comment on above: Pain in both lower e xtremities (Primary Dx); Muscle cramps at night; Vitamin deficiency; Chronic bilateral low back pain without sciatica Start: 04-05-2024 End: 04-05-2024 ambulatory ROSARIO AICHHOLZ Not Available Start: 03-02-2024 End: 03-02-2024 Office outpatient visit 25 minutes Rosario Bia CORRECTIONS OFFICER Work Phone: [facility] Comment on above: Anxiety (Primary Dx) ; Major depressive disorder, single episode, in full remission (CMS/HCC); Overweight (BMI 25.0-29.9); Osteoporosis, post-menopausal (CMS/HCC); Gastroesophageal reflux disease without esophagitis; Heart murmur Start: 03-02-2024 End: 03-02-2024 ambulatory ROSARIO AICHHOLZ Not Available Start: 03-02-2024 End: 03-02-2024 Bamboo flowsheet Rosario Aichholz CORRECTIONS OFFICER Work Phone: [facility] Start: 03-02-2024 End: 03-02-2024 Bamboo flowsheet Rosario Aichholz CORRECTIONS OFFICER Work Phone: [facility] Start: 02-13-2024 End: 02-14-2024 Refill Rosario Aichholz CORRECTIONS OFFICER Work Phone: [facility] Comment on above: Chronic bilateral lo w back pain without sciatica Start: 01-17-2024 End: 01-18-2024 Refill Rosario Aichholz CORRECTIONS OFFICER Work Phone: [facility] Comment on above: Chronic bilateral lo w back pain without sciatica Start: 01-03-2024 End: 01-04-2024 Refill Rosario Aichholz CORRECTIONS OFFICER Work Phone: [facility] Comment on above: Anxiety Start: 10-12-2023 End: 10-12-2023 ambulatory ROSARIO AICHHOLZ Not Available Start: 09-02-2023 End: 09-02-2023 ambulatory ROSARIO AICHHOLZ Not Available Start: 06-11-2023 Bamboo flowsheet Rosario Aichholz CORRECTIONS OFFICER Work Phone: [facility] Start: 06-11-2023 Bamboo flowsheet Rosario Aichholz CORRECTIONS OFFICER Work Phone: [facility] Start: 06-11-2023 End: 06-11-2023 Patient encounter procedure Rosario Aichholz CORRECTIONS OFFICER Work Phone: [facility] Comment on above: Medicare annual [facility] visit, subsequent (Primary Dx); Benign hypertension (CMS/HCC); Osteoporosis, post-menopausal (CMS/HCC); Anxiety; Gastroesophageal reflux disease without esophagitis; Age related osteoporosis, unspecified pathological fracture presence (CMS/HCC); Chronic bilateral low back pain without sciatica; Mixed hyperlipidemia (CMS/HCC) Start: 06-11-2023 End: 06-11-2023 ambulatory ROSARIO AMEZQUITA Not Available Start: 07-21-2022 End: 07-22-2022 ambulatory SEISMOGRAPH OBSERVER ROSARIO AICHHOLZ Facility:[facility] Start: 02-12-2022 End: 02-12-2022 ambulatory MONIQUE MORRISSEYCHARLENEZ Facility:[facility] Start: 01-09-2022 End: 01-10-2022 ambulatory SEISMOGRAPH OBSERVER ROSARIO AICSarayHOLZ Facility:[facility] Start: 01-06-2022 End: 01-07-2022 ambulatory MONIQUE MORRISSEYHOLZ Facility:[facility] Start: 12-03-2021 End: 12-04-2021 ambulatory SEISMOGRAPH OBSERVER ROSARIO SANFORDZ Facility:[facility] Start: 10-18-2021 End: 10-19-[address] JESSICA SAMPSON Facility:[facility] Start: 09-17-2021 End: 09-18-[address] ISAIAH ROJAS Facility:[facility] Start: 08-06-2021 End: 08-07-2021 ambulatory JOCELINE ORTEGA Facility:[facility] Start: 02-04-2017 Ambulatory NATASHA (CORRECTIONS OFFICER) [facility] Start: 01-09-2017 End: 01-13-2017 Evaluation and management of inpatient [facility] Procedures Date Procedure Procedure Detail Performing Clinician Start: 10-06-2024 XR FOOT RT MIN 3V Gener ic External Data Provider Start: 05-26-2024 XR DEXA AXIAL SKELETON Rosario Claribelz CORRECTIONS OFFICER Work Phone: Start: 05-10-2024 Iaadiadoo influenza Lis a Aichholz CORRECTIONS OFFICER Work Phone: Start: 08-21-2023 Mammography Rosario Aichh olz CORRECTIONS OFFICER Work Phone: Start: 07-21-2022 Mammography Rosario Aichh olz CORRECTIONS OFFICER Work Phone: Start: 10-20-2021 Antibody screen Comment on above: Order Comment: Speci men Type: BLOOD SPECIMEN Ordering Facility: [facility] Address: [address] [place] [id number] Performed By: #### T SCR #### CC [facility] BLOOD BANK [place] [id number] [address] [place] [address] Plan of Treatment Date Care Activity Detail Author Start: 10-26-2024 End: 10-26-2024 Patient encounter procedure 10/26/2024 10:30 AM EDT Office Visit [facility] [address] [place] [address] Rosario Amezquita, ANSELMO [address] [place] [phone] [facility] Start: 08-20-2024 Screening for malignant neoplasm of breast Mammogram [facility] Start: 06-16-2024 End: 06-16-2024 Patient encounter procedure 06/16/2024 10:30 AM EST Office Visit [facility] [address] [place] [address] Rosario Amezquita, ANSELMO [address] [place] [phone] [facility] Start: 06-11-2024 Medicare Annual Wellness (AWV) Medicare Annual Wellness (AWV) [facility] Start: 05-10-2024 End: 05-10-2024 Patient encounter procedure 05/10/2024 4:00 PM EST Office Visit [facility] [address] [place] [address] Rosario Amezquita, CORRECTIONS OFFICER [address] [place] [phone] Arrived [facility] Comment on above: Arrived Start: 05-09-2024 End: 05-09-2024 Patient encounter procedure 05/09/2024 1:40 PM EST Office Visit [facility] [address] [place] [address] Rosario Amezquita ANSELMO [address] [place] [phone] [facility] Start: 04-05-2024 End: 04-05-2025 Cobalamin (Vitamin B12) [Mass/volume] in Serum or Plasma Vitamin B12 Lab Routine Vitamin deficiency Expected: 04/05/2024 (Approximate), Expires: 04/05/2025 [facility] Work Phone: Comment on above: Expected: 04/05/2024 (Approximate), Expires: 04/05/2025 Start: 04-05-2024 End: 04-05-2025 Creatine kinase [Enzymatic activity/volume] in Serum or Plasma CK Lab Routine Muscle cramps at night Expected: 04/05/2024 (Approximate), Expires: 04/05/2025 [facility] Comment on above: Expected: 04/05/2024 (Approximate), Expires: 04/05/2025 Start: 04-05-2024 End: 04-05-2025 Magnesium [Mass/volume] in Serum or Plasma Magnesium Lab Routine Muscle cramps at night Expected: 04/05/2024 (Approximate), Expires: 04/05/2025 [facility] Comment on above: Expected: 04/05/2024 (Approximate), Expires: 04/05/2025 Start: 04-05-2024 End: 04-05-2024 Patient encounter procedure 04/05/2024 1:20 PM EST [facility] Visit [facility] [address] [place] [address] Rosario Amezquita, ANSELMO [address] [place] [phone] Arrived [facility] Comment on above: Arrived Start: 03-02-2024 End: 03-02-2024 Patient encounter procedure 03/02/2024 2:20 PM EST Office Visit [facility] [address] [place] [phone] Rosario Amezquita, CORRECTIONS OFFICER [address] [place] [phone] Overweight (BMI 25.0-29.9) (Primary Dx); Major depressive disorder, single episode, in full remission (CMS/HCC); Anxiety; Osteoporosis, post-menopausal (CMS/HCC); Gastroesophageal reflux disease without esophagitis [facility] Comment on above: Overweight (BMI 25.0 -29.9) (Primary Dx); Major depressive disorder, single episode, in full remission (CMS/HCC); Anxiety; Osteoporosis, post-menopausal (CMS/HCC); Gastroesophageal reflux disease without esophagitis Start: 02-29-2024 End: 02-29-2024 Patient encounter procedure 02/29/2024 1:40 PM EST Office Visit [facility] [address] [place] [address] Rosario Amezquita, ANSELMO [address] [place] [phone] [facility] Start: 02-09-2024 End: 02-09-2024 Patient encounter procedure 02/09/2024 1:00 PM EDT Office Visit [facility] [address] [place] [address] Rosario Amezquita, CORRECTIONS OFFICER [address] [place] [phone] [facility] Start: 12-27-2023 Influenza vaccination Influenza Vacc ine (#1) [facility] Start: 10-12-2023 End: 10-12-2023 Patient encounter procedure 10/12/2023 2:00 PM EDT Office Visit [facility] [address] [place] [address] Rosario Amezquita, CORRECTIONS OFFICER [address] [place] [phone] [facility] Start: 07-22-2023 Screening for malignant neoplasm of breast Mammogram [facility] Start: 06-11-2023 End: 06-11-2023 Patient encounter procedure 06/11/2023 1:20 PM EST Office Visit [facility] [address] [place] [phone] Rosario Amezquita, ANSELMO [address] [place] [address] Arrived [facility] Comment on above: Arrived Start: 1955 Medicare Annual Wellness (AWV) Medicare Annual Wellness (AWV) [facility] Immunizations Immunization Date Immunization Notes Care Provider Fa cili 02-03-2024 influenza, high dose seasonal, preservative-free Rosario Aichholz CORRECTIONS OFFICER Work Phone: [facility] 02-03-2024 Pneumococcal Conjuga te PCV 20 Rosario Aichholz CORRECTIONS OFFICER Work Phone: [facility] 03-18-2023 Influenza, Seasonal, Quadrivalent, Adjuvanted Rosario Aichholz CORRECTIONS OFFICER Work Phone: [facility] 03-18-2023 influenza virus vacc ine, unspecified formulation Rosario Aichholz CORRECTIONS OFFICER Work Phone: [facility] 07-28-2022 zoster vaccine recombinant L donya Aichholz CORRECTIONS OFFICER Work Phone: [facility] 05-28-2022 zoster vaccine recombinant L donya Aichholz CORRECTIONS OFFICER Work Phone: [facility] 03-25-2021 influenza, injectabl e, quadrivalent, preservative free Rosario Aichholz CORRECTIONS OFFICER Work Phone: [facility] 02-03-2017 influenza virus vacc ine, unspecified formulation Rosario Aichholz CORRECTIONS OFFICER Work Phone: [facility] 04-01-2013 influenza, seasonal, injectable Rosario Aichholz CORRECTIONS OFFICER Work Phone: [facility] 01-25-2013 influenza, seasonal, injectable Rosario Aichholz CORRECTIONS OFFICER Work Phone: [facility] 01-25-2013 pneumococcal polysaccharide vaccine, 23 valent Rosario Aichholz CORRECTIONS OFFICER Work Phone: [facility] 01-29-2012 influenza, seasonal, injectable Rosario Aichholz CORRECTIONS OFFICER Work Phone: [facility] 01-29-2012 pneumococcal polysaccharide vaccine, 23 valent Rosario Aichholz CORRECTIONS OFFICER Work Phone: [facility] Payers Date Payer Category Payer Medicare ANTHEM MEDICARE ADVANTAGE [facility] MEDICARE ADVANTAGE [id number] 2023-Present [address] [place] [id number] 2023 Medicare (Managed Care) [facility] ADVANTAGE Member Subscriber Plan / Payer (Effective 2023-Present) Name: Yaya Adrianise Relation to Subscriber: Self Name: Sofie Adrian Payer ID: Not on file Group ID: [id number] Type: Not on file Address: [address] [place] [id number] 2023 Medicare [id number] 1959 Medicaid [id number] 1959 Medicare [id number] 1959 Private Health Insurance CLI [id number] 1955 Unknown [id number] [id number]. 593 1955 Unknown [id number] 2.16.840.1.420149.3.579.2. 593 1955 Unknown [id number] 2.16.840.1.898655.3.579.2. 593 1955 Unknown [id number] 2.16.840.1.575042.3.579.2. 593 1955 Unknown [id number] 2.16.840.1.360992.3.579.2. 593 1955 Unknown [id number] 2.16.840.1.181504.3.579.2. 593 1955 Unknown [id number] 2.16.840.1.506302.3.579.2. 593 1955 Unknown [id number] 2.16.840.1.080509.3.579.2. 593 1955 Unknown [id number] 2.16.840.1.296520.3.579.2. 1259 1955 Unknown [id number] 2.16.840.1.623671.3.579.2. 1259 1955 Unknown [id number] 2.16.840.1.281235.3.579.2. 1259 1955 Unknown [id number] 2.16.840.1.129696.3.579.2. 1259 1955 Unknown [id number] 2.16.840.1.478335.3.579.2. 1259 1955 Unknown [id number] [id number]. 1259 Social History Date Type Detail Facility Start: 04-29-2023 Tobacco smoking status COIS Ex-smoke r [facility] History of tobacco [...] Sex Assigned At Not on file [facility] Clinical Notes 09-17-2021 to 06-28-2024 Telephone Encounter - Rosario Amezquita NP - 06/28/2024 5:34 PM ESTTelephone Encounter - Rosario Amezquita NP - 06/28/2024 5:34 PM Edmund Amezquita NP - 05/10/2024 4:37 PM ESTPatient Instructions Note Date & Type Note Facility 06-28-2024 Telephone encounter Note Reschedule AWV LA [facility] 06-28-2024 Miscellaneous Notes Reschedule AWV LA documented in this encounter [facility] 05-10-2024 History of Present illness Narrative Associated Problem(s): Viral upper respiratory tract infection Neg for flu Offered to test for COVID at [facility] or send out health trax, she declines [...] remission Anxiety 06/02/2023 Back pain Benign hypertension ([facility]) 06/03/2023 Chronic bilateral low back pain without sciatica 03/30/2023 Diverticulosis of colon without diverticulitis 06/11/2023 Gout, unspecified 06/03/2023 Hyperlipidemia ([facility]) 06/03/2023 Opioid abuse ([facility]) Osteoporosis, post-menopausal ([facility]) 06/11/2023 Pain in joint, multiple sites [...] flu Offered to test for COVID at [facility] or send out health trax, she declines Recommend fluids, rest, tylenol/motrin prn Warm salt water gargles, and throat lozenges Does not work til Thursday Will call if worsens, advised viruses last 7-10 days, worse by day 5 then better Relevant Orders POCT Influenza A/B documented in this encounter [facility] 05-10-2024 Instructions Rosario Amezquita NP - 05/10/2024 4:00 PM EST Fluids, rest, tylenol/motrin prn Throat lozenges, warm salt water gargles documented in this encounter [facility] 04-05-2024 History of Present illness Narrative Associated [...] remission Anxiety 06/02/2023 Back pain Benign hypertension ([facility]/HCC) 06/03/2023 Chronic bilateral low back pain without sciatica 03/30/2023 Diverticulosis of colon without diverticulitis 06/11/2023 Gout, unspecified 06/03/2023 Hyperlipidemia ([facility]/HCC) 06/03/2023 Opioid abuse ([facility]) Osteoporosis, post-menopausal ([facility]) 06/11/2023 Pain in joint, multiple sites [...] Orders Vitamin B12 documented in this encounter [facility] 04-05-2024 Instructions Rosario Amezquita NP - 04/05/2024 1:20 PM EST Check labs, if they are ok we will order an EMG to assess nerve function documented in this encounter [facility] 03-02-2024 History of Present illness Narrative Associated [...] working with diet changes and worked at [employer] activity. No abd pain, no NV, no [...] without diverticulitis 06/11/2023 Gout, unspecified 06/03/2023 Hyperlipidemia ([facility]) 06/03/2023 Opioid abuse ([facility]) Osteoporosis, post-menopausal ([facility]) 06/11/2023 Pain in joint, multiple sites [...] depressive disorder, single episode, in full remission ([facility]) No current depression symptoms Heart murmur No current symtpoms Will monitor Associated Problem(s): Gastroesophageal reflux disease without esophagitis Recommendations: freq small meals, nothing to eat or drink at least 2 hours prior to bed, limit caffeine, alcohol, as well as spicy foods Meds to limit or avoid if possible: NSAIDS Elevate HOB if possible documented in this encounter [facility] 03-02-2024 Instructions Rosario Amezquita NP - 03/02/2024 2:20 PM EST Lab work Bone density scan: will send to [facility] documented in this encounter [facility] 06-11-2023 History of Present illness Narrative Associated Problem(s): Anxiety Doing well on meds Associated Problem(s): Gastroesophageal reflux disease without esophagitis stable Associated Problem(s): Osteoporosis, post-menopausal ([facility]/HCC) Continue fosamax Associated Problem(s): Benign hypertension (CMS/HCC) [...] remission Anxiety 06/02/2023 Back pain Benign hypertension ([facility]/HCC) 06/03/2023 Chronic bilateral low back pain without sciatica 03/30/2023 Diverticulosis of colon without diverticulitis 06/11/2023 Gout, unspecified 06/03/2023 Hyperlipidemia ([facility]/HCC) 06/03/2023 Opioid abuse ([facility]) Osteoporosis, post-menopausal ([facility]) 06/11/2023 Pain in joint, multiple sites [...] 70 MG tablet documented in this encounter [facility] 10-22-2021 Note HNO ID: [id number] Author: Koko Burris MD Service: General Surgery [...] your independent professional judgment. Thank you, Annabella [facility] 10-22-2021 Note HNO ID: [id number] Author: Joceline Liang MD Service: General Surgery [...] Acute Care Surgery (ACS) Day Floor Pager: [phone] Acute Care Surgery (ACS) Day Consults Pager: [phone] On nights (6 pm to 6 am) and on Weekends/Holidays, please page the on-call pager: [phone] ___ Subjective: See above Physical Exam: BP [...] PHOS Recent Labs 10/22/21 0714 10/19/21 2203 10/19/21 2202 01/12/17 0458 01/11/17 [...] 1.1 Intake and Output: Date 10/21/21699 - 10/22/2159 10/22/21 07 - 10/23/21 0659 Shift 5738-3538 1491-8162 2620-3842 24 Hour Total 5104-8441 8038-9448 8603-4801 24 Hour Total INTAKE PO 120 240 [...] tab(s) (PROTONIX) 40 mg ORAL BID AC (06/1600) - ondansetron (PF) 4 mg injection (ZOFRAN) 4 mg INTRAVENOUS q 6 H PRN - NaCl 0.9% iv flush bag 20 mL INTRAVENOUS PRN - NaCl 0.9% iv flush bag 20 mL INTRAVENOUS PRN - heparin 5,000 Units injection 5,000 Units SUBCUTANEOUS q 12 H - buprenorphine 8 mg - naloxone 2 mg sublingual film (SUBOXONE) 2 Film SUBLINGUAL DAILY [facility] 10-21-2021 Note HNO ID: [id number] Author: Merline Sanchez RN Service: Care Management Author Type: Registered Nurse Type: Care Mgt Initial Assessment Filed: 10/21/2021 11:35 AM Note Text: CARE MANAGEMENT: ASSESSMENT AND DISCHARGE PLAN SERVICE DATE: October 21, 2021 SERVICE TIME: 11:29 AM PRIMARY CARE PHYSICIAN: Rosario Amezquita CNP, SEISMOGRAPH OBSERVER Primary Contact: Extended Emergency Contact Information Primary Emergency Contact: Maude Adrian Relation: Daughter Secondary Emergency Contact: cecile adam Mobile Relation: Spouse ADMISSION STATUS: Inpatient Insurance Provider: N/A NEEDS PRIOR TO DISCHARGE Needs Prior to Discharge: To Be Determined;Procedure Procedure Needed: SBFT today POTENTIAL TRANSITION PLANS To Be Determined Patient's perception of need for this admission: SBO ADVANCE DIRECTIVES Current Advance Directive: None Nurses' Registry Director Attempted to Assist with AD Completion: Yes [...] PCP?: Yes, External Provider Provider Name: Rosario Amezquita, SEISMOGRAPH OBSERVER [phone] Does the patient have transportation upon discharge?: [...] Completely I feel financially burdened by my [id number] expenses for my prescription medication:: 0 - Disagree Completely Risk Score: 0 Patient is categorized as: Low risk < 2 FUNCTIONAL How do you manage to accomplish the following: Independent: Ambulation;Bathe/Shower;Dress;Mary Jane ls/Meal Prep;Going to the bathroom;Medication Management;Transportation to appointments/community Services/Needs//Equipment Does Patient Currently Receive Any Community Services or Home Care?: None Equipment Prior to Admission: None Has the Patient Been in a Senior Living Facility in the Past 30 days?: No No medical discharge barriers identified at this time. No social discharge barriers identified at this time. No behavioral/cognitive discharge barriers identified at this time. No functional discharge barriers identified at this time. FREEDOM OF CHOICE EXPLAINED: [place] of Choice Given: No Reason Not Given: [...] for arthritis pain. Patient sees Dr. Masha Myaer for suboxone. Spouse to transport home. Will follow for d/c planning needs. SIGNATURE: Merline Sanchez RN PATIENT NAME: Sofie Adrian DATE: October 21, 2021 TIME: 11:29 AM CONTACT #: [phone] [facility] 10-21-2021 Note HNO ID: [id number] Author: Koko Burris MD Service: General Surgery [...] Acute Care Surgery (ACS) Day Floor Pager: [phone] Acute Care Surgery (ACS) Day Consults Pager: [phone] On nights (6 pm to 6 am) and on Weekends/Holidays, please page the on-call pager: [phone] ___ Subjective: See above Physical Exam: BP [...] Labs: CBC, BMP, MG, PHOS Recent Labs 10/19/21220210/19/21220101/12/17 0458 01/11/17 0515 01/10/17 0453 01/09/17 [...] 1.1 1.1 1.1 Intake and Output: Date 10/20/21699 - 10/21/2165810/21/21699 - 10/22/21 0659 Shift 6341-3267 6365-5798 5826-4559 24 Hour Total 5614-5602 6820-6739 2964-5880 24 Hour Total INTAKE IV 850 434 265 8203 Volume (mL) (NaCl 0.9% iv flush bag) 600 600 Volume (mL) (potassium chloride iv piggyback 20 mEq/100 mL) 200 100 300 Volume (mL) (magnesium sulfate 2 g in sterile water 50 ml) 50 50 Volume (mL) (dextrose 5% in NaCl 0.45% iv infusion) 747 231 0089 Shift Total 850 259 048 1152 OUTPUT Urine 400 172 612 3999 Void (ml) 400 916 846 2434 Tubes 75 25 100 Output (GI Feed 10/19/21 1700 Admission to Hospital Gastric Right Naris) 75 25 100 Shift Total 475 555 855 6496 Weight (kg) 56.5 56.5 56.5 56.5 56.5 [...] sublingual film (SUBOXONE) 2 Film SUBLINGUAL DAILY [facility] 10-20-2021 Note HNO ID: [id number] Author: Leighann Rodriguez RN Service: Nursing Author [...] This note was completed by: Leighann Rodriguez [facility] 10-20-2021 Note HNO ID: [id number] Author: Koko Burris MD Service: General Surgery [...] Acute Care Surgery (ACS) Day Floor Pager: [phone] Acute Care Surgery (ACS) Day Consults Pager: [phone] On nights (6 pm to 6 am) and on Weekends/Holidays, please page the on-call pager: [phone] ___ Subjective: See above Physical Exam: BP [...] Labs: CBC, BMP, MG, PHOS Recent Labs 10/19/21220210/19/21220118/17 0458 01/11/17 0515 01/10/17 0453 01/09/17 0623 [...] 1.1 1.1 1.1 Intake and Output: Date 10/19/21 07 - 10/20/21 0659 10/20/21 07 - 10/21/21 0659 Shift 9098-7249 7950-0187 2516-8941 24 Hour Total 6328-5306 2718-6402 0880-3303 24 Hour Total INTAKE IV 300 600 900 Volume (mL) (dextrose 5% in NaCl 0.45% iv infusion) 300 600 900 Shift Total 300 600 900 OUTPUT Urine 250 450 700 Void (ml) 250 450 700 Tubes 350 150 500 Output (GI Feed 10/19/21 1700 Admission to Hospital Gastric Right Naris) 350 150 500 Shift Total 729 307 1593 Weight (kg) 56.5 56.5 56.5 56.5 56.5 [...] injection 5,000 Units SUBCUTANEOUS q 12 H [facility] 09-17-2021 Note PROCEDURE: XR FOOT L [...] by: ISAIAH ROJAS Date: 2021-09-17 11:44 [facility] Evaluation note Diagnosis Medicare annual wellness visit, subsequent- Primary Benign hypertension (CMS/HCC) Essential hypertension, benign Osteoporosis, post-menopausal (CMS/HCC) Senile osteoporosis Anxiety Anxiety state, unspecified Gastroesophageal reflux disease without esophagitis Esophageal reflux Age related osteoporosis, unspecified pathological fracture presence (CMS/HCC) Chronic bilateral low back pain without sciatica Mixed hyperlipidemia (CMS/HCC) Mixed hyperlipidemia [facility] Diagnosis Medicare annual wellness visit, subsequent- Primary Benign hypertension (CMS/HCC) Essential hypertension, benign Osteoporosis, post-menopausal (CMS/HCC) Senile osteoporosis Anxiety Anxiety state, unspecified Gastroesophageal reflux disease without esophagitis Esophageal reflux Age related osteoporosis, unspecified pathological fracture presence (CMS/HCC) Chronic bilateral low back pain without sciatica Mixed hyperlipidemia (CMS/HCC) Mixed hyperlipidemia Chronic bilateral low back pain without sciatica- Primary Anxiety Anxiety state, unspecified Anxiety- Primary Anxiety state, unspecified Hx of opioid abuse (CMS/HCC) Chronic bilateral low back pain without sciatica Overweight (BMI 25.0-29.9) Overweight Chronic bilateral low back pain without sciatica [facility]* Diagnosis Medicare annual wellness visit, subsequent- Primary Benign hypertension ([facility]) Essential hypertension, benign Osteoporosis, post-menopausal ([facility]) Senile osteoporosis Anxiety Anxiety state, unspecified Gastroesophageal reflux disease without esophagitis Esophageal reflux Age related osteoporosis, unspecified pathological fracture presence ([facility]) Chronic bilateral low back pain without sciatica Mixed hyperlipidemia ([facility]) Mixed hyperlipidemia Chronic bilateral low back pain without sciatica- Primary Anxiety Anxiety state, unspecified Anxiety- Primary Anxiety state, unspecified Hx of opioid abuse ([facility]) Chronic bilateral low back pain without sciatica Overweight (BMI 25.0-29.9) Overweight Anxiety- Primary Anxiety state, unspecified Major depressive disorder, single episode, in full remission ([facility]) Major depressive disorder, single episode in full remission Overweight (BMI 25.0-29.9) Overweight Osteoporosis, post-menopausal ([facility]) Senile osteoporosis Gastroesophageal reflux disease without esophagitis Esophageal reflux Heart murmur Undiagnosed cardiac murmurs documented in this encounter [facility]* Diagnosis Medicare annual wellness visit, subsequent- Primary Benign hypertension ([facility]) Essential hypertension, benign Osteoporosis, post-menopausal ([facility]) Senile osteoporosis Anxiety Anxiety state, unspecified Gastroesophageal reflux disease without esophagitis Esophageal reflux Age related osteoporosis, unspecified pathological fracture presence ([facility]) Chronic bilateral low back pain without sciatica Mixed hyperlipidemia ([facility]) Mixed hyperlipidemia Chronic bilateral low back pain without sciatica- Primary Anxiety Anxiety state, unspecified Anxiety- Primary Anxiety state, unspecified Hx of opioid abuse ([facility]) Chronic bilateral low back pain without sciatica Overweight (BMI 25.0-29.9) Overweight Anxiety- Primary Anxiety state, unspecified Major depressive disorder, single episode, in full remission ([facility]) Major depressive disorder, single episode in full remission Overweight (BMI 25.0-29.9) Overweight Osteoporosis, post-menopausal ([facility]) Senile osteoporosis Gastroesophageal reflux disease without [...] annual wellness visit, subsequent- Primary Benign hypertension ([facility]) Essential hypertension, benign Osteoporosis, post-menopausal ([facility]) Senile osteoporosis Anxiety Anxiety state, unspecified Gastroesophageal reflux disease without esophagitis Esophageal reflux Age related osteoporosis, unspecified pathological fracture presence ([facility]) Chronic bilateral low back pain without sciatica Mixed hyperlipidemia ([facility]) Mixed hyperlipidemia Chronic bilateral low back pain without sciatica- Primary Anxiety Anxiety state, unspecified Anxiety- Primary Anxiety state, unspecified Hx of opioid abuse ([facility]) Chronic bilateral low back pain without sciatica Overweight (BMI 25.0-29.9) Overweight Anxiety- Primary Anxiety state, unspecified Major depressive disorder, single episode, in full remission ([facility]) Major depressive disorder, single episode in full remission Overweight (BMI 25.0-29.9) Overweight Osteoporosis, post-menopausal ([facility]) Senile osteoporosis Gastroesophageal reflux disease without esophagitis Esophageal reflux Heart murmur Undiagnosed cardiac murmurs Pain in both lower extremities- Primary Muscle cramps at night Cramp of limb Vitamin deficiency Unspecified vitamin deficiency Chronic bilateral low back pain without sciatica Viral upper respiratory tract infection- Primary Acute upper respiratory infections of unspecified site documented in this encounter [facility]* Diagnosis Medicare annual wellness visit, subsequent- Primary Benign hypertension ([facility]) Essential hypertension, benign Osteoporosis, post-menopausal ([facility]) Senile osteoporosis Anxiety Anxiety state, unspecified Gastroesophageal reflux disease without esophagitis Esophageal reflux Age related osteoporosis, unspecified pathological fracture presence [facility] Chronic bilateral low back pain without sciatica Mixed hyperlipidemia ([facility]) Mixed hyperlipidemia Chronic bilateral low back pain without sciatica- Primary Anxiety Anxiety state, unspecified Anxiety- Primary Anxiety state, unspecified Hx of opioid abuse ([facility]) Chronic bilateral low back pain without sciatica Overweight (BMI 25.0-29.9) Overweight Anxiety- Primary Anxiety state, unspecified Major depressive disorder, single episode, in full remission ([facility]) Major depressive disorder, single episode in full remission Overweight (BMI 25.0-29.9) Overweight Osteoporosis, post-menopausal ([facility]) Senile osteoporosis Gastroesophageal reflux disease without [...] esophagitis Esophageal reflux documented in this encounter [facility]* Diagnosis Medicare annual wellness visit, subsequent- Primary Benign hypertension ([facility]) Essential hypertension, benign Osteoporosis, post-menopausal ([facility]) Senile osteoporosis Anxiety Anxiety state, unspecified Gastroesophageal reflux disease without esophagitis Esophageal reflux Age related osteoporosis, unspecified pathological fracture presence ([facility]) Chronic bilateral low back pain without sciatica Mixed hyperlipidemia ([facility]) Mixed hyperlipidemia Chronic bilateral low back pain without sciatica- Primary Anxiety Anxiety state, unspecified Anxiety- Primary Anxiety state, unspecified Hx of opioid abuse ([facility]) Chronic bilateral low back pain without sciatica Overweight (BMI 25.0-29.9) Overweight Anxiety- Primary Anxiety state, unspecified Major depressive disorder, single episode, in full remission [facility] Major depressive disorder, single episode in full remission Overweight (BMI 25.0-29.9) Overweight Osteoporosis, post-menopausal ([facility]) Senile osteoporosis Gastroesophageal reflux disease without esophagitis Esophageal reflux Heart murmur Undiagnosed cardiac murmurs Pain in both lower extremities- Primary Muscle cramps at night Cramp of limb Vitamin deficiency Unspecified vitamin deficiency Chronic bilateral low back pain without sciatica Viral upper respiratory tract infection- Primary Acute upper respiratory infections of unspecified site Age-related osteoporosis without current pathological fracture ([facility]) documented in this encounter [facility]* Diagnosis Medicare annual wellness visit, subsequent- Primary Benign hypertension ([facility]) Essential hypertension, benign Osteoporosis, post-menopausal ([facility]) Senile osteoporosis Anxiety Anxiety state, unspecified Gastroesophageal reflux disease without esophagitis Esophageal reflux Age related osteoporosis, unspecified pathological fracture presence ([facility]) Chronic bilateral low back pain without sciatica Mixed hyperlipidemia ([facility]) Mixed hyperlipidemia Chronic bilateral low back pain without sciatica- Primary Anxiety Anxiety state, unspecified Anxiety- Primary Anxiety state, unspecified Hx of opioid abuse ([facility]) Chronic bilateral low back pain without sciatica Overweight (BMI 25.0-29.9) Overweight Anxiety- Primary Anxiety state, unspecified Major depressive disorder, single episode, in full remission ([facility]) Major depressive disorder, single episode in full remission Overweight (BMI 25.0-29.9) Overweight Osteoporosis, post-menopausal ([facility]) Senile osteoporosis Gastroesophageal reflux disease without esophagitis Esophageal reflux Heart murmur Undiagnosed cardiac murmurs Pain in both lower extremities- Primary Muscle cramps at night Cramp of limb Vitamin deficiency Unspecified vitamin deficiency Chronic bilateral low back pain without sciatica Chronic bilateral low back pain without sciatica documented in [facility] encounter [facility]* Diagnosis Medicare annual wellness visit, subsequent- Primary Benign hypertension Essential hypertension, benign Osteoporosis, post-menopausal Senile osteoporosis Anxiety Anxiety state, unspecified Gastroesophageal reflux disease without esophagitis Esophageal reflux Age related osteoporosis, unspecified pathological fracture presence Chronic bilateral low back pain without sciatica Mixed hyperlipidemia Mixed hyperlipidemia Chronic bilateral low back pain without sciatica- Primary Anxiety Anxiety state, unspecified Anxiety- Primary Anxiety state, unspecified Hx of opioid abuse ([facility]) Chronic bilateral low back pain without sciatica Overweight (BMI 25.0-29.9) Overweight Anxiety- Primary Anxiety state, unspecified Major depressive disorder, single episode, in full remission Major depressive disorder, single episode in full remission Overweight (BMI 25.0-29.9) Overweight Osteoporosis, post-menopausal Senile osteoporosis Gastroesophageal reflux disease without esophagitis Esophageal reflux Heart murmur Undiagnosed cardiac murmurs Pain in both lower extremities- Primary Muscle cramps at night Cramp of limb Vitamin deficiency Unspecified vitamin deficiency Chronic bilateral low back pain without sciatica Osteoporosis, post-menopausal Senile osteoporosis Age related osteoporosis, unspecified pathological fracture presence documented in this encounter [facility] Summary [...] section and content) DATE CREATED AUTHOR 10/20/2017 [facility] DATE CREATED AUTHOR AUTHOR'S ORGANIZ ATION 10/21/2017 [facility] DATE CREATED AUTHOR AUTHOR'S ORGANIZ ATION 10/22/2021 [facility] DATE CREATED AUTHOR AUTHOR'S ORGANIZ ATION 07/30/2022 [facility] DATE CREATED AUTHOR AUTHOR'S ORGANIZ ATION 05/14/2024 [facility] EPIC Care Teams (unrecognized sec tion and content) Process Treater Relationship Specialty Start Date End Date Rosario Amezquita NP [address] [place] [phone] PCP - Vidal HERNANDEZ 04/27/23 Dayton Amaya MD [address] [place] [phone] PCP - General Family Medicine 06/11/23 Rosario Amezquita NP [address] [place] [phone] Referring Physician Nurse Practitioner 11/12/22 Rosario Amezquita NP [address] [place] [phone] Nurse Practitioner Family Medicine 06/11/23 Process Treater Relationship Specialty Start Date End Date Rosario Amezquita NP [address] [place] [phone] PCP - Vidal HERNANDEZ 04/27/23 Dayton Amaya MD [address] [place] [phone] PCP - General Family Medicine 06/11/23 Rosario Amezquita NP [address] [place] [phone] Referring Physician Nurse Practitioner 11/12/22 Rosario Amezquita NP [address] [place] [address]8610[address] Nurse Practitioner Family Medicine 06/11/23 Process Treater Relationship Specialty Start Date End Date Rosario Amezquita NP [address] [place] [phone] PCP - Vidal HERNANDEZ 04/27/23 Dayton Amaya MD [address] [place] [phone] PCP - General Family Medicine 06/11/23 Rosario Amezquita NP [address] [place] [address] Referring Physician Nurse Practitioner 11/12/22 Rosario Amezquita NP [address] [place] [address]0910[address] Nurse Practitioner Family Medicine 06/11/23 Process Treater Relationship Specialty Start Date End Date Rosario Amezquita NP [address] [place] [phone] PCP - Vidal HERNANDEZ 04/27/23 Dayton Amaya MD [address] [place] [address] PCP - General Family Medicine 06/11/23 Rosario Amezquita NP [address] [place] [address] Referring Physician Nurse Practitioner 11/12/22 Rosario Amezquita NP [address] [place] [address]10[address] Nurse Practitioner Family Medicine 06/11/23 Process Treater Relationship Specialty Start Date End Date Rosario Amezquita NP [address] [place] [phone] PCP - Vidal HERNANDEZ 04/27/23 Dayton Amaya MD [address] [place] [address] PCP - General Family Medicine 06/11/23 Rosario Amezquita NP [address] [place] [address] Referring Physician Nurse Practitioner 11/12/22 Rosario Amezquita NP [address] [place] [address] Nurse Practitioner Family Medicine 06/11/23 Process Treater Relationship Specialty Start Date End Date Rosario Amezquita NP [address] [place] [address] PCP - Vidal HERNANDEZ 04/27/23 Dayton Amaya MD [address] [place] [address] PCP - General Family Medicine 06/11/23 Rosario Amezquita NP [address] [place] [address] Referring Physician Nurse Practitioner 11/12/22 Rosario Amezquita NP [address] [place] [address] Nurse Practitioner Family Medicine 06/11/23 Process Treater Relationship Specialty Start Date End Date Rosario Amezquita NP [address] [place] [address] PCP - Vidal HERNANDEZ 04/27/23 Dayton Amaya MD [address] [place] [address] PCP - General Family Medicine 06/11/23 Rosario Amezquita NP [address] [place] [address] Referring Physician Nurse Practitioner 11/12/22 Rosario Amezquita NP [address] [place] [address] Nurse Practitioner Family Medicine 06/11/23 Process Treater Relationship Specialty Start Date End Date Rosario Amezquita NP [address] [place] [address] PCP - Vidal HERNANDEZ 04/27/23 Dayton Amaya MD [address] [place] [address] PCP - General Family Medicine 06/11/23 Rosario Amezquita NP [address] [place] [address] Referring Physician Nurse Practitioner 11/12/22 Rosario Amezquita NP [address] [place] [address]9910[address] Nurse Practitioner Family Medicine 06/11/23 Process Treater Relationship Specialty Start Date End Date Rosario Amezquita NP [address] [place] [address] PCP - Vidal HERNANDEZ 04/27/23 Dayton Amaya MD [address] [place] [address]14910[address] PCP - General Family Medicine 06/11/23 Rosario Amezquita NP [address] [place] [address]8510[address] Referring Physician Nurse Practitioner 11/12/22 Rosario Amezquita NP [address] [place] [address]5810[address] Nurse Practitioner Family Medicine 06/11/23 Process Treater Relationship Specialty Start Date End Date Rosario Amezquita NP [address] [place] [address] PCP - Vidal HERNANDEZ 04/27/23 Dayton Amaya MD [address] [place] [address] PCP - General Family Medicine 06/11/23 Rosario Amezquita NP [address] [place] [address]210[address] Referring Physician Nurse Practitioner 11/12/22 Rosario Amezquita NP [address] [place] [address]-070910-[address] Nurse Practitioner Family Medicine 06/11/23 Process Treater Relationship Specialty Start Date End Date Rosario Amezquita NP [address] [place] [address] PCP - V[place] 04/27/23 Dayton Amaya MD [address] [place] [address]18810-1002 PCP - General Family Medicine 06/11/23 Rosario Amezquita NP [address] [place] [address]95610-1002 Referring Physician Nurse Practitioner 11/12/22 Rosario Amezquita NP [address] [place] [address]3910-1002 Nurse Practitioner Family Medicine 06/11/23 Process Treater Relationship Specialty Start Date End Date Dayton Amaya MD [address] [place] [address] PCP - General Family Medicine 06/11/23 Rosario Amezquita NP [address] [place] [address] Referring Physician Nurse Practitioner 11/12/22 Rosario Amezquita NP [address] [place] [phone] Nurse Practitioner Family Medicine 06/11/23 Process Treater Relationship Specialty Start Date End Date Rosario Amezquita NP [address] [place] [address] PCP - Vidal HERNANDEZ 04/27/23 Dayton Amaya MD [address] [place] [address] PCP - General Family Medicine 06/11/23 Rosario Amezquita NP [address] [place] [address] Referring Physician Nurse Practitioner 11/12/22 Rosario Amezquita NP [address] [place] [address] Nurse Practitioner Family Medicine 06/11/23 Process Treater Relationship Specialty Start Date End Date Rosario Amezquita NP [address] [place] [address] PCP - Vidal HERNANDEZ 04/27/23 Dayton Amaya MD [address] [place] [address] PCP - General Family Medicine 06/11/23 Rosario Amezquita NP [address] [place] [address] Referring Physician Nurse Practitioner 11/12/22 Rosario Amezquita NP [address] [place] [address] Nurse Practitioner Family Medicine 06/11/23 Process Treater Relationship Specialty Start Date End Date Rosario Amezquita NP [address] [place] [address] PCP - Vidal HERNANDEZ 04/27/23 Dayton Amaya MD [address] [place] [address] PCP - General Family Medicine 06/11/23 Rosario Amezquita NP [address] [place] [address] Referring Physician Nurse Practitioner 11/12/22 Rosario Amezquita NP [address] [place] [address] Nurse Practitioner Family Medicine 06/11/23 Process Treater Relationship Specialty Start Date End Date Rosario Amezquita NP [address] [place] [address] PCP - Vidal HERNANDEZ 04/27/23 Dayton Amaya MD [address] [place] [address] PCP - General Family Medicine 06/11/23 Rosario Amezquita NP [address] [place] [address] Referring Physician Nurse Practitioner 11/12/22 Rosario Amezquita NP [address] [place] [address] Nurse Practitioner Family Medicine 06/11/23 Reason for [...] BE BASED ON THE PRIMARY CLINICAL RECORDS. [facility]. provides no warranty or guarantee of the accuracy or completeness of information in this document.
--- NOTE | 2024-10-13 11:40 | XR_ITS ---
[facility] [place] [id number] Patient Name: SOFIE ADRIAN MRN: [id number] date: 1955 Sex: F Assigned Patient Location: [facility] Current Patient Location: [facility] Accession/Order Number: [id number] Exam Date: 10/13/2024 12:03 Report Date: 10/13/2024 12:08 At the request of: MERCEDES CESAR DPJf Procedure: XR foot LT min 3V LEFT FOOT - 3 views CLINICAL DATA: Foot pain. History of fusion at the first toe. COMPARISON: 02/03/2023 Weightbearing AP, lateral and oblique views were obtained. There is redemonstration of fusion at the first metatarsal phalangeal joint with plate and multiple screws. Hardware appears intact and unchanged in position. There is no acute fracture or dislocation. Presumed postoperative deformity and subluxations are again seen at the proximal interphalangeal joints of the second through fifth toes. There is also subtle subluxation at the fifth metatarsal phalangeal joint. There are no significant soft tissue abnormalities. XR/XR foot LT min 3V IMPRESSION: SIMILAR POSTOPERATIVE CHANGES. NO ACUTE BONY FINDINGS. Impression dictated by: Radha Triplett M.D. 10/13/2024 12:08 PM Dictation Location: [place] [address] Electronically authenticated by: [id number] Y Date: 10/13/2024 12:08
== END 2024-10-13 11:33 | disposition home or self-care (01) ==
LOC: RAD 11:34
PROVIDERS: PCP Nurse Practitioner; Visit Provider Podiatrist Foot & Ankle Surgery
DX: M79.672 Pain in left foot (principal); Z98.890 Other specified postprocedural states
CPT/HCPCS: 73630

== ENCOUNTER 2024-11-16 12:36 | Outpatient (OUT) | payer MEDICARE, SELFPAY ==
--- OUTSIDE RECORDS SUMMARY | 2023-06-03 07:00 | XMS_ITS ---
Author Organization The [facility] in [place] Address [address] [place] [address] Care Team Providers Care Chain Hoist Operator Name Role Phone None, Unknown or Primary Care Provider Unavailab Wil Joshua Unavailable [phone] Allergies Allergen (clinical drug ingredient) Drug/Non Drug Allergy documented on EMR Reaction Allergy Type Onset Date Status Penicillin vomiting Drug Allergy Active sulfacetamide Sulfacetamide vomiting Drug Allergy Active Results Component Value Reference Range Notes XR Foot RT (3 views) * Reviewed date:06/04/2023 12:35:46 PM Interpretation: Performing Lab: Notes/Report: REASON FOR VISIT x-ray to check hardware Medications Medication SIG (Take, Route, Frequency, Duration) Notes Start Date End Date Status Osteo Bi-Flex Joint Shield Active FLUoxetine HCl Activ e Meloxicam Active Narcan Not-Taking Omeprazole Active Atorvastatin Calcium Active Buprenorphine HCl-Naloxone HCl Active Cyclobenzaprine HCl Active Ferrous Sulfate Acti ve Social History Tobacco Use: Social History Observation Description Date Details (start date - stop date) Former Smoker NA - NA Tobacco Use/Smoking Question Answer Notes Patient is a former smoker Vital Signs Weight 135 lbs 06/03/2023 Height 61 in 06/03/2023 Temperature 97.5 degrees Fahrenheit 06/03/19 24 Heart Rate 90 /min 06/03/2023 Respiratory Rate 16 /min 06/03/2023 BMI 25.51 kg/m2 06/03/2023 Oximetry 97 % 06/03/2023 Encounters Encounter Location Date Provider Diagnosis [facility] (PODIATRY) [address] [place] [address] [place] [address] 06/03/2023 Wil Farfan Hallux rigidus, right foot M20.21 ; Pain due to bone fixation device, initial encounter T84.84XA and Arthrodesis status Z98.1 Assessments Encounter Date Diagnosis (ICD Code) Assessment Notes Treatment Notes Treatment Clinical Notes Section Notes 06/03/2023 Hallux rigidus, right foot (ICD-10 - M20.21) Patient presents today for follow-up regarding right first MTP fusion with PIPJ arthroplasty digits 2 3 and 4 with tailor's bunionectomy DOS 05/13/2021. She presents for routine follow-up serial x-rays regarding this due to prior images showing some loosening of the hardware with incomplete union.Today she states she is having no pain whatsoever to the right foot, she does admit to some numbness to the tip of the right hallux however she is overall pleased with her progress.Clinica l exam and x-ray findings discussed with patient. Clinically the arthrodesis site remains stable and there is no palpably prominent hardware. X-ray findings did demonstrate some lucency around the hardware however there is no signs of a breaking or backing out and no change from her previous x-ray.Recommende d continuing to monitor symptoms and follow-up with us in since 6 months to repeat right foot x-rays to monitor her hardware. She is to call if she has any questions or concerns in the meantime. She left the office today pleased. 06/03/2023 Pain due to bone fixation device, initial encounter (ICD-10 - T84.84XA) 06/03/2023 Arthrodesis status (ICD-10 - Z98.1) Plan Of Treatment Treatment Notes Assessment Notes Hallux rigidus, right foot Patient prese nts today for follow-up regarding right first MTP fusion with PIPJ arthroplasty digits 2 3 and 4 with tailor's bunionectomy DOS 05/13/2021. She presents for routine follow-up serial x-rays regarding this due to prior images showing some loosening of the hardware with incomplete union.Today she states she is having no pain whatsoever to the right foot, she does admit to some numbness to the tip of the right hallux however she is overall pleased with her progress.Clinical exam and x-ray findings discussed with patient. Clinically the arthrodesis site remains stable and there is no palpably prominent hardware. X-ray findings did demonstrate some lucency around the hardware however there is no signs of a breaking or backing out and no change from her previous x-ray.Recommended continuing to monitor symptoms and follow-up with us in since 6 months to repeat right foot x-rays to monitor her hardware. She is to call if she has any questions or concerns in the meantime. She left the office today pleased. Progress Notes * Dejah JOSEPHOB:1955 (68 yo F)Acc No.[id number]:06/03/2023 Follow Up Patient: Elizabeth Russell Provider: Eros Farfan DPM :1955 A ge:67 Y S ex:Female Date:06/03/2023 Address:[address] [place], [place] [id number] Pcp:Unknown or None Check In:11:05 AM ESTCheck O ut:11:29 AM EST Subjective: * Chief Complaints: * 1 . X-ray to check hardware. * HPI: G eneral: Patient returns to clinic today for reevaluation of loosening hardware to right foot. Per patient she states the hardware is backing out and the doctor wants to keep an eye on it. She denies pain. States she has numbness to her foot and it radiates up her anterior billingsley. She is currently on suboxone but is actively weaning off of it. * ROS: G eneral/Constitutional: Chills d enies. F ever d enies. W eight gain?denies. W eight loss d enies. S kin: Skin Ulcers d enies. S kin lesion(s) d enies. ? C ardiovascular: Difficulty breathing on exertion d enies. L eg cramps?denies. E lucila d enies. C hest pain d enies. R espiratory: Difficulty breathing d enies. D yspnea d enies.?Cough d enies. G astrointestinal: Diarrhea d enies. N ausea d enies. V omiting?denies. M usculoskeletal: Bone/Joint Symptoms d enies. C madeline Pain d enies.?Leg cramps d enies. N eurologic: Numbness d enies. T ingling d enies . G ait abnormality d enies. ? H ematology: Anemia D enies. E asy bruising d enies. ? A ll Other Systems: Review of Systems (ROS) S ee HPI for details,All others negative except those mentioned in HPI. * Active Problem List M20.21 Hallux rigidus, righ t foot Modified On:06/03/2023W/U Status:confirmed * Medical History: L eft foot pain, Tailors bunion, left, Hammertoe of right foot, Abnormal foot pulse, Opiate abuse, continuous, Bilateral foot pain. * Surgical History: C OLECTOMY , CHOLECYSTECTOMY , tubal ligation , RIght 1st mpj fusion, correction of right hammertoe 2-5, exostectomy of tailor bunion 05/13/2021. * Hospitalization/Major Diagno stic Procedure: s ee above . * Family History: F ather: diagnosed with Heart Disease. * Social History: T obacco Use: T obacco Use/Smoking P atreyes is a f ormer smoker * Medications: T aking Atorvastatin Calcium , Taking Buprenorphine HCl-Naloxone HCl , Taking Cyclobenzaprine HCl , Taking Ferrous Sulfate , Taking FLUoxetine HCl , Taking Meloxicam , Taking Omeprazole , Taking Osteo Bi-Flex Joint Shield , Not- Taking/PRN Narcan , Medication List reviewed and reconciled with the patient * Allergies: P enicillin: vomiting, Sulfacetamide: vomiting. Objective: * Vitals: W t:135 lbs, Ht: 61 in, Temp:97.5 F, HR:90 /min, RR:16 /min, BMI:25.51 Index, Pain scale:0 1-10, Oxygen sat %:97 %, Ht-cm: 154.94 cm, Wt-k.23 kg. * Examination: P odiatry Exam: MUSCULOSKELETAL: M uscle strength 5/5 for 4 pedal groups. No discernible range of motion and no crepitus or pain at the right first MTP. No palpatory tenderness elicited upon exam. Compartment soft compressible, no pain with calf or thigh compression.. NEUROLOGICAL: L ight touch and protective sensation diminished to medial and distal aspect right hallux tuft. No hypersensitivity, negative Tinel's.. VASCULAR: D P PT pulse strongly palpable. CFT intact to digits. Skin temperature warm and symmetric without focal increase. No erythema edema or ecchymosis..? DERMATOLOGY R ight foot incisions fully healed no signs of dehiscence hypertrophic scarring or infection.. Diagnostic Testing X -ray: 3 views of the right foot obtained reviewed in office today. Demonstrates intact hardware at the right first MTP. There continues to be incomplete consolidation across the arthrodesis site which remains clinically stable. There are some surrounding lucency about the hardware however there is no signs of breaking or backing out compared to previous. Evidence of prior PIPJ arthroplasty digits 2 3 and 4 with exostectomy of fifth MPJ. No other acute fracture dislocations noted.. Assessment: * Assessment: 1. H allux rigidus, right foot - M20.21 2 . P ain due to bone fixation device, initial encounter - T84.84XA 3 . A rthrodesis status - Z98.1 Plan: * Treatment: * * Sign off status: Completed Visit Status: C HK (Check Out) true * Provider: Eros Farfan DPM Date: 0 06/03/2023 Generated for Kelsea rosenthal/Jagjit/Nanoitting on: 0 11/16/2024 12:38 PM EDT History and Physical Notes * Examination Category Sub-Category Detail Notes Category Not es Podiatry Exam MUSCULOSKELETAL: Muscle strength 5/5 for 4 pedal groups. No discernible range of motion and no crepitus or pain at the right first MTP. No palpatory tenderness elicited upon exam. Compartment soft compressible, no pain with calf or thigh compression. NEUROLOGICAL: Light touch and prot ective sensation diminished to medial and distal aspect right hallux tuft. No hypersensitivity, negative Tinel's. VASCULAR: DP PT pulse strongly palpable. CFT intact to digits. Skin temperature warm and symmetric without focal increase. No erythema edema or ecchymosis. DERMATOLOGY Right foot incisions fully healed no signs of dehiscence hypertrophic scarring or infection. Diagnostic Testing X-ray: 3 views of th e right foot obtained reviewed in office today. Demonstrates intact hardware at the right first MTP. There continues to be incomplete consolidation across the arthrodesis site which remains clinically stable. There are some surrounding lucency about the hardware however there is no signs of breaking or backing out compared to previous. Evidence of prior PIPJ arthroplasty digits 2 3 and 4 with exostectomy of fifth MPJ. No other acute fracture dislocations noted.
--- OUTSIDE RECORDS SUMMARY | 2023-06-03 07:00 | XMS_ITS ---
Author Organization The [facility] in [place] Address [address] [place] [address] Care Team Providers Care Director Dermatology Name Role Phone None, Unknown or Primary Care Provider Unavailab Jose Haskins Unavailable [phone] REASON FOR VISIT 4 month f/u Encounters Encounter Location Date Provider Diagnosis [facility] (PODIATRY) [address] [place] [address] [place] [address] 06/03/2023 Jose Llanes Plan Of Treatment No Information Progress Notes * Dejah JOSEPHOB:1955 (69 yo F)Acc No.[id number]:06/03/2023 UNLOCKED PROGRESS NOTE Follow Up Patient: Elizabeth ÁLVAREZ Provider: Gela Llanes DPM MS :1955 A ge:67 Y S ex:Female Date:06/03/2023 Address:[address] [place], [place] [id number] Pcp:Unknown or None Subjective: * Chief Complaints: * 1 . 4 month f/u. * Medical History: Objective: * Vitals: Assessment: Plan: * Treatment: * * Electronic signature of Presley Llanes DPM on 11/16/2024 at 12:39 PM EDT Sign off status: Pending Visit Status: C ANC (Cancelled) * Provider: Gela Llanes DPM, MS Date: 06/03/2023 Generated for Kelsea ng/Facandiceg/eTransmitting on: 0 11/16/2024 12:39 PM EDT
--- OUTSIDE RECORDS SUMMARY | 2024-11-02 09:30 | XMS_ITS ---
Author Organization [facility] Address [address] [place] [address] Care Team Providers Care Radio Engineering Teacher Name Role Phone Lesley Herndon Primary Care Provider Prema Chowdary Unavailable [phone] REASON FOR VISIT 6 MONTH PROPHY Encounters Encounter Location Date Provider Diagnosis [place] [address] [facility] [address] 11/02/2024 Prema Chowdary Plan Of Treatment Next Appt Details Provider Name:Haleigh Mcconnell, 03/15/2025 01:00:00 PM, [address] [place], [address], Provider Name:Rigo Castillo, 1 05/29/2024 02:50:00 PM, [address], [place], [address], Provider Name:Lindsay Babcock, 05/15/2025 11:00:00 AM, [address] [place], [address], Progress Notes * JAMIE ADRIANOB:1955 (69 yo F)Acc No.[id number]:11/02/2024 Patient: SOFIE ÁLVAREZ Provider: Odilon Mujica :1955 A ge:69 Y S ex:Female Date:11/02/2024 Address:[address] [place], [place] [address], [phone] Pcp:Lesley Angulo Subjective: * Chief Complaints: * 1 . 6 MONTH PROPHY. * Medical History: Objective: * Vitals: Assessment: Plan: * Treatment: * Images: * Electronic signature of Kaelyn Chowdary on 11/16/2024 at 12:39 PM EDT Sign off status: Pending * Provider: Odilon Mujica Date: 11/02/2024 Generated for Kelsea rosenthal/Jagjit/Yong on: 11/16/2024 12:39 PM EDT
--- OUTSIDE RECORDS SUMMARY | 2024-11-16 12:39 | XMS_ITS | Patient Health Record ---
Author Organization [facility] [place] Address [address] [place] [address] Care Team Providers Care Business Travel Consultant Name Role Phone None, Unknown or Primary Care Provider Unavailab le Allergies Allergen (clinical drug ingredient) Drug/Non Drug Allergy documented on EMR Reaction Allergy Type Onset Date Status Penicillin vomiting Drug Allergy Active sulfacetamide Sulfacetamide vomiting Drug Allergy Active Reason For Referral No Information Medications Medication SIG (Take, Route, Frequency, Duration) Notes Start Date End Date Status Osteo Bi-Flex Joint Shield Active Atorvastatin Calcium Active FLUoxetine HCl Activ e Meloxicam Active Narcan Not-Taking Omeprazole Active Buprenorphine HCl-Naloxone HCl Active Cyclobenzaprine HCl Active Ferrous Sulfate Acti ve Social History Tobacco Use: Social History Observation Description Date Details (start date - stop date) Former Smoker NA - NA Tobacco Use/Smoking Question Answer Notes Patient is a former smoker Problems Problem Type SNOMED Code ICD Code Onset Dates Problem Status W/U Status Risk Notes Problem [id number] Hallux rigidus, right foot (M20.21) Active confirmed Plan Of Treatment No Information Insurance Providers Payer Name Payer Address Payer Phone Subscriber Number Group Number Insured Name Patient Relationship to Insured Coverage Start Date Coverage End Date [employer] DUAL ADV PRIMARY MEDICARE [address] [place] [address] [id number] Elizabeth Joseph Self - patient is the insured [place]IC[place] [address] [place] [address] [id number] Elizabeth Joseph Self - patient is the insured Medical (General) History Medical History History ICD Code Left foot pain M79.672 Tailors bunion, left M20.12 Hammertoe of right foot M20.41 Abnormal foot pulse R09.89 Opiate abuse, continuous F11.10 Bilateral foot pain 729.5 Surgical History Surgery Date(Month/Year) COLECTOMY CHOLECYSTECTOMY tubal ligation RIght 1st mpj fusion, correc tion of right hammertoe 2-5, exostectomy of tailor bunion 05/13/2021 Hospitalization History Reason Date(Month/Year) see above
--- OUTSIDE RECORDS SUMMARY | 2024-11-16 12:39 | XMS_ITS | Clinical Summary ---
Author Organization [facility] Address [id number] [address] [place] [address] Care Team Providers Care Metal Burrer Name Role Phone Unavailable Primary Care Provider Unavailabl e Allergies Active Allergy Reactions Criticality Noted Date Comments Penicillin Rash Low 01/27/2023 Sulfa (Sulfonamide Antibiotics) Nausea And Vomiting 01/27/2023 Medications atorvastatin (LIPITOR) 10 mg tablet take 1 tablet by mouth at bedtime Active omeprazole (PriLOSEC) 40 mg capsule take 1 capsule by mouth once daily 12/04/2022 Active FLUoxetine (PROzac) 20 mg capsule take 1 capsule by mouth once daily 12/09/2022 Active meloxicam (MOBIC) 15 mg tablet take 1 tablet by mouth daily Active cyclobenzaprine (FLEXERIL) 5 mg tablet Take 2 tablets (10 mg total) by mouth 3 (three) times a day as needed for muscle spasms. Active Active Problems No known active problems Family History Medical History Relation Name Comments Diabetes Father Relation Name Status Comments Father Mother Social History Tobacco Use Types Packs/Day Years Used Date Smoking Tobacco: Never Smokeless Tobacco: Never Tobacco Cessation:Counseling Given: Not Answered Childcare Answer Date Recorded Childcare Unknown 10/06/2018 Employment Answer Date Recorded Employment Unknown 10/06/2018 Hunger Screening Answer Date Recorded Within the past 12 months we worried whether our food would run out before we got money to buy more. Never True 01/27/2023 Within the past 12 months th e food we bought just didn't last and we didn't have money to get more. Never True 01/27/2023 Comments Unknown Sex and Gender Information Value Date Recorded Sex Assigned at Not on file Legal Sex Female 11:26 AM EDT Gender Identity Not on file Sexual Orientation Not on file Last Filed Vital Signs Vital Sign Reading Time Taken Comments Blood Pressure - - Pulse - - Temperature - - Respiratory Rate - - Oxygen Saturation - - Inhaled Oxygen Concentration - - Weight 59 kg (130 lb) 01/27/2023 1:13 PM EDT Height 152.4 cm (5') 01/27/2023 1:13 PM EDT Body Mass Index 25.39 01/27/2023 1:13 PM EDT Plan of Treatment Health Maintenance Due Date Last Done Comments Depression Screening 1967 DTaP,Tdap and Td Vaccines (1 - Tdap) 1974 Fall Risk Screening 2020 COVID-19 Vaccine (3 - 2023-2 5 season) 2023 07/25/2020, 07/04/2020 Adult BMI Screening 01/28/2024 01/27/2023 Tobacco Screening 01/28/2024 01/27/2023 Influenza Vaccine 12/26/2024 03/25/2021, , 04/01/2013, Additional history exists Zoster (Shingles) Vaccine Completed 07/28/2022, 04/2022 Medical Devices Not on file Insurance MEDICARE [place]ICAID [place]
--- OUTSIDE RECORDS SUMMARY | 2024-11-16 12:39 | XMS_ITS | Encounter Summary ---
Author Organization [facility] Address [address] [place] [address] Care Team Providers Care Dancing Master Name Role Phone BarbernicoletteyuriRosario Zainab AMAYA Primary Care Provider [phone] Source Comments In the event this information is protected by the Federal Confidentiality of Alcohol and Drug AbusePatient Records regulations: The Federal rules restrict any use of the information to criminally investigate or prosecute any alcohol or drug abuse patient.[facility] Encounter Details Date Type Department Care Team (Late st Contact Info) Description 01/17/2022 Abstract Hematology/Oncology [address] [address] Titi Antonio MD [address] [facility] [place] [address] Social History Tobacco Use Types Packs/Day Years Used Date Smoking Tobacco: Former Cigarettes 0.5 20 0 07/27/1983 - 07/27/2003 Smokeless Tobacco: Never Alcohol Use Standard Drinks/Week Comments Yes 0 (1 standard drink = 0.6 oz pure alcohol) drinks a bottle of wine daily; sometimes more Comments No Sex and Gender Information Value Date Recorded Sex Assigned at Not on file Legal Sex Female 9:35 AM EST Gender Identity Not on file Sexual Orientation Not on file 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 Answer Date of Assessment Author No 01/13/2017 1:13 PM Saida Calvillo RN * Are you blind or do you have serious difficulty seeing, even when wearing glasses? Answer Date of Assessment Author No 01/13/2017 1:13 PM Saida Calvillo RN * Do you have serious difficulty walking or climbing stairs? Answer Date of Assessment Author No 01/13/2017 1:13 PM Saida Calvillo RN * Do you have difficulty dressing or bathing? Answer Date of Assessment Author No 01/13/2017 1:13 PM Saida Calvillo RN * Because of a physical, mental, or emotional condition, do you have difficulty doing errands alone such as visiting a doctor's office or shopping? Answer Date of Assessment Author No 01/13/2017 1:13 PM Saida Calvillo RN documented as of this encounter Mental Status * Because of a physical, mental, or emotional condition, do you have serious difficulty concentrating, remembering, or making decisions? Answer Entry Date Author No 01/13/2017 1:13 PM Saida Calvillo RN documented in this encounter Plan of Treatment Not on file documented as of this encounter Visit Diagnoses Not on filedocumented in this encounter Care Teams Dancing Master Relationship Specialty Start Date End Date Rosario Amezquita CNP PCP - General Family Medicine 10/18/21 documented as of this encounter
--- OUTSIDE RECORDS SUMMARY | 2024-11-16 12:39 | XMS_ITS | Clinical Summary ---
Author Organization [facility] Address [address] [place] [address] Care Team Providers Care Substitute Teacher Name Role Phone Rosario Amezquita CNP Primary Care Provider Allergies Active Allergy Reactions Criticality Noted Date Comments Penicillins Vomiting 10/21/2013 Sulfa (Sulfonamide Antibiotics) Rash 09/26 Medications FLUoxetine HCl 20 mg tablet Take 40 mg by mouth once daily. Active Omeprazole (PRILOSEC) 40 mg capsule Take 1 capsule by mouth once daily. 30 capsule 4 4 Active Additional Information Patient taking differently:40 mg ORAL2 TIMES DAILY, Reported on 08/08/2015 atorvastatin (LIPITOR) 10 mg tablet Take 10 mg by mouth once daily. Active meloxicam (MOBIC) 15 mg tablet Take 15 mg by mouth once daily. Active buprenorphine-n aloxone (SUBOXONE) 8-2 mg film Dissolve 8.2 Film under the tongue once daily. Dissolve 2 films under the tongue once daily 2 Active cyclobenzaprine (FLEXERIL) 5 mg tablet Take 5 mg by mouth three times daily as needed. 2 Active lisinopril 2.5 mg tablet Take 2.5 mg by mouth once daily. 2 Active FEROSUL 325 mg (65 mg iron) tablet Take 1 tablet by mouth twice daily. 2 Active alendronate (FOSAMAX) 70 mg tablet take 1 tablet by mouth every week WITH WATER 30 MINUTES BEFORE FI... (REFER TO PRESCRIPTION NOTES). 2 Active Active Problems Problem Noted Date Diagnosed Date Small bowel obstruction 10/19/2021 SBO (small bowel obstruction) 01/08/2017 Status post surgery 09/19/2015 Exertional dyspnea 08/08/2015 Overview (08/09/2015): Reports increasing exertional dyspnea for the past several months. Related to anemia vs COPD vs cardiac Emphysema of lung 08/08/2015 Overview (08/08/2015): 15 pack year smoking history. Quit in 2003 Alcohol abuse 08/08/2015 Overview (08/10/2015): 1 bottle of wine daily. Last drink 08/05 Plan CIWA protocol Rectal bleeding 08/07/2015 Overview (08/10/2015): History Has had 2 previous hospital stays, during which she required blood transfusion Now reporting that she is having BRBPR for the past day. She reports that previous episodes are more maroon, but this is bring red. Previous workup at OSH includes Tagged RBC scan, and capsule- unremarkable for bleeding source EGD in 02/2014- two bleeding angeoectasias in stomach, treated with thermal ablation. C-scope 11/2013-- 3 polyps removed. Diverticulosis of sigmoid. Internal hemorrhoids Baseline Hb 10 Hb in June, approximately 8 Assessment: Now presenting with 7.6, continues to drop despite transfusion Probable Diverticulosis vs. Ischemic colitis vs angioectasia Tagged RBC scan negative EGD, C-scope scheduled for 08/08 - could not id a bleed Plan: Transfuse to keep > 7 Capsule endoscopy Hold beta dillan BPV (benign positional vertigo) 10/31/2014 HLD (hyperlipidaemia) 10/31/2014 Iron deficiency anemia 12/23/2013 Overview (08/08/2015): Home with iron supplementation PUD (peptic ulcer disease) 12/23/2013 Overview (08/09/2015): Continue 40 BID PPI Taking 800mg TID ibuprofen Carotid stenosis Vertigo Tachycardia Immunizations Immunization Administration Dates Next Due influenza (IIV3) vaccine, ag e 6 mo - 64 yr, trivalent (AFLURIA, FLULAVAL, FLUVIRIN, FLUZONE) 01/25/2013 influenza (IIV3) vaccine, tr ivalent (AFLURIA, FLULAVAL, FLUVIRIN, FLUZONE) 04/01/2013,01/29/2012 influenza (IIV4) vaccine, ag e 6 mo - 64 yr, quadrivalent, PF (AFLURIA, FLUARIX, FLULAVAL, FLUZONE) 03/25/2021 influenza vaccine, unspecified formulation 02/03 pneumococcal polysaccharide (PPV23) vaccine, 23 valent (PNEUMOVAX 23) 01/25/2013,01/29/2012 Family History Medical History Relation Comments Diabetes Father Heart Father Lipids Father Heart Mother Hypertension Mother Arthritis Sister Relation Status Comments Father Mother Sister Social History Tobacco Use Types Packs/Day Years Used Date Smoking Tobacco: Former Cigarettes 0.5 20 0 07/27/1983 - 07/27/2003 Smokeless Tobacco: Never Alcohol Use Standard Drinks/Week Comments Yes 0 (1 standard drink = 0.6 oz pure alcohol) drinks a bottle of wine daily; sometimes more Area Deprivation Index Answer Date David rded National Score (1-100), lower number is lower ri sk 65 05/22/2022 State Score (1-10), lower number is lower risk N ot on file 05/22/2022 Data from: https://www.neighborhoodatlas.medicine.[facility].edu/. 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 Not on file Not on file Not on file [facility] Not on file Not on file Not on file Last Filed Vital Signs Vital Sign Reading Time Taken Comments Blood Pressure 133/79 01/21/2022 10:49 AM EDT Pulse 70 01/21/2022 10:49 AM EDT Temperature 36.7 C (98 F) 01/21/2022 10:49 AM EDT Respiratory Rate 16 01/21/2022 10:49 AM EDT Oxygen Saturation 95% 01/21/2022 10:49 AM EDT Inhaled Oxygen Concentration - - Weight 60 kg (132 lb 3.2 oz) 01/21/2022 10:49 AM EDT Height 154.9 cm (5' 0.98 ) 01/21/2022 10:49 AM E DT Body Mass Index 24.99 01/21/2022 10:49 AM EDT Plan of Treatment Health Maintenance Due Date Last Done Comments Anxiety Screening 1973 Depression Screening 1973 DTaP,Tdap,Td Vaccine (1 - Tdap) 1974 CT Colonography 2000 Cologuard (FIT-DNA) 2000 Fecal Occult Blood 2000 Lipid Screening 2000 Sigmoidoscopy 2000 Shingrix Vaccine (1 of 2) 2005 Pneumococcal Vaccine: 50+ (2 of 2 - PCV) 01/25/2014 01/25/2013, 01/29/2012 Mammogram Screening 08/18/2014 08/18/2013 Colonoscopy 08/08/2018 08/09/2015, 11/25, 11/28/2013 Colorectal Cancer Screening 08/08/2018 Bone Density Screening 2020 Covid-19 Vaccine (3 - 2023-2 5 season) 2023 07/25/2020, 07/04/2020 Advance Directive Discussion 04/27/2024 Diabetes Screening 10/22/2024 10/22/2021, 0 10/19/2021, 01/12/2017, Additional history exists Influenza Vaccine (#1) 2024 , 02/03/2017, 04/01/2013, Additional history exists RSV Vaccine (1 - 1-dose 75+ series) 2030 Hepatitis C Screening Completed 04/04/2014 Procedures Procedure Name Priority Date/Time Associated Diagnosis Comments BASIC METABOLIC PANEL Routine 10/22/2021 7:14 AM EDT COLONOSCOPY - DIAGNOSTIC Routine 08/09/2015 10:14 AM EDT HEP ACUTE PANEL/RNA Routine 04/04/2014 10:10 AM EST Abnormal LFTs Abnormal findings on esophagogastroduodenoscopy (EGD) from Last 3 Months or Most Recently Relevant to Health Maintenance Results * (ABNORMAL) BASIC METABOLIC PNL (10/22/2021 7:14 AM EDT) [facility] Signature Glucose 90 74 - 99 mg/dL 10/22/2021 9:40 AM [facility] Comment: The [place] Diabetes Association (ADA) provides guidance for cutoff [...] Standards of Medical Care in Diabetes 2016, [place] Diabetes Association. Diabetes Care. 2016.39(Suppl 1). BUN 6(L) 7 - 21 mg/dL 10/22/2021 9:40 AM [facility] Creatinine 0.58 0.58 - 0.96 mg/dL 10/22/2021 9:40 AM [facility] Sodium 145(H) 136 - 144 mmol/L 10/22/2021 9:40 AM [facility] Potassium 3.2(L) 3.7 - 5.1 mmol/L 10/22/2021 9:40 AM [facility] Chloride 100 97 - 105 mmol/L 10/22/2021 9:40 AM [facility] CO2 29 22 - 30 mmol/L 10/22/2021 9:40 AM [facility] Anion Gap 16 9 - 18 mmol/L 10/22/2021 9:40 AM [facility] Calcium, Total 9.5 8.5 - 10.2 mg/dL 10/22/2021 9:40 AM [facility] Estimated Glomerular Filtration Rate 100 >=60 mL/min/1.7 3m 10/22/2021 9:40 AM [facility] Comment:Estimated Glomerular Filtration Rate (eGFR) is calculated using the 2020 CKD-EPI creatinine equation. This equation utilizes serum creatinine, sex, and age as parameters. The creatinine assay has traceable calibration to isotope dilution- mass spectrometry. Refer to KDIGO guidelines for clinical interpretation. In patients with unstable renal function, e.g. those with acute kidney injury, the eGFR may not accurately reflect actual GFR. Blood BLOOD SPECIMEN / Unknown Venipuncture / Unknown 10/22/2021 7:14 AM EDT 10/22/2021 7:28 AM EDT us Cain Acosta MD LABORATORY Fin al Result [facility] [address] [place] [id number], * COLONOSCOPY - DIAGNOSTIC (08/09/2015 10:14 AM EDT) [employer] Q3 Patient Name: Elizabeth Joseph Procedure Date: 08/09/2015 10:14 AM Date of : 1955 Admit Type: Inpatient Age: 60 Gender: Female Note Status: Finalized Attending MD: Irene Fuentes MD Procedure: Colonoscopy Indications: Melena Providers: Irene Fuentes MD, Eboni Vera MD (Fellow) Patient Profile: This is a 60 year old female. Refer to note in patient chart for documentation of history and physical. Last Colonoscopy: within the past year. Referring Physician: Medicines: Midazolam 1 mg IV, Fentanyl 25 micrograms IV, see other procedure note for additional medications given prior to this procedure Complications: No immediate complications. Requesting Provider: Procedure: Pre-Anesthesia Assessment: - Prior to the procedure, a History and Physical was performed, and patient medications and allergies were reviewed. The patient's tolerance of previous anesthesia was also reviewed. The risks and benefits of the procedure and the sedation options and risks were discussed with the patient. All questions were answered, and informed consent was obtained. Prior Anticoagulants: The patient has taken no previous anticoagulant or antiplatelet agents. ASA Grade Assessment: III - A patient with severe systemic disease. After reviewing the risks and benefits, the patient was deemed in satisfactory condition to undergo the procedure. After I obtained informed consent, the scope was passed under direct vision. Throughout the procedure, the patient's blood pressure, pulse, and oxygen saturations were monitored continuously. The Colonoscope was introduced through the anus and advanced to the cecum, identified by appendiceal orifice and ileocecal valve. The colonoscopy was performed without difficulty. The patient tolerated the procedure well. The quality of the bowel preparation was fair. The ileocecal valve, appendiceal orifice, and rectum were photographed. Findings: The digital rectal exam findings include melena. Hematin (altered blood/coffee-grou nd-like material) was found in the entire colon. Lavage of the area was performed using a large amount, resulting in clearance with fair visualization. No source of bleeding was found. Impression: - Melena. found on digital rectal exam. - Blood in the entire examined colon. - No specimens collected. Estimated Blood Loss: Estimated blood loss: none. Recommendation: - Resume previous diet. - Continue present medications. - Return patient to [facility] for ongoing care. - Patient has a contact number available for emergencies. The signs and symptoms of potential delayed complications were discussed with the patient. Return to normal activities tomorrow. Written discharge instructions were provided to the patient. - Repeat colonoscopy for screening purposes. Procedure Code(s): --- Professional --- 45888, Colonoscopy, flexible; diagnostic, including collection of specimen(s) by brushing or washing, when performed (separate procedure) CPT copyright 2014 [place] [employer]. All rights reserved. Attending Participation: I was present and participated during the entire procedure, including non-peters portions. MD Irene Rodriguez MD 08/09/2015 11:39:15 AM This report has been signed electronically by Irene Fuentes MD Number of Addenda: 0 Note Initiated On: 08/09/2015 10:14 AM Procedure Start: 10:50:21 AM Procedure End: 11:32:15 AM [facility] Anatomical Region Laterality Modality Other 08/09/2015 10:1 4 AM EDT us Parvin Whittaker MD [facility] Final Result * HEP ACUTE PANEL/RNA (04/04/2014 10:10 AM EST) Hep A Ab, IgM Negative NEGAT [facility] Hep B Core Ab, IgM Negative NEGAT [facility] HBsAg Negative NEGAT [facility] HCV RNA by PCR HCV RNA not detected by PCR. IU/mL [facility] Comment: Reference Range: Negative for HCV RNA The Linear Range of this assay is 15 IU/mL to 100,000,000 IU/mL. Blood specimen (specimen) BLOOD SPECIMEN / Unknown 04/04/2014 10:10 AM EST 04/04/2014 10:12 AM EST us Flory Gaines MD, PhD LABORATORY Final Result [facility] [address] [facility] [place] [address] from Last 3 Months or Most Recently Relevant to Health Maintenance Insurance MEDICARE [id number] [place] [address] Care Teams Substitute Teacher Relationship Specialty Start Date End Date Rosario Amezquita, MODELING AGENT PCP - General Family Medicine 10/18/21
--- OUTSIDE RECORDS SUMMARY | 2024-11-16 12:39 | XMS_ITS | Encounter Summary ---
Author Organization [facility] Address [address] [place] [address] Care Team Providers Care Senior Climate Advisor Name Role Phone Rosario Amezquita NP Unavailable [phone] Rosario Amezquita NP Unavailable [phone] Dayton Amaya MD Primary Care Provider Rosario Amezquita NP Unavailable [phone] Denisse Saldana LPN Unavailable Unavailable Encounter Details Date Type Department Care Team (Late st Contact Info) Description 08/21/2023 Orders Only [facility] [address] [place] [address] Rosario Amezquita NP [address] [place] [address] Social History Tobacco Use Types Packs/Day Years Used Date Smoking Tobacco: Former Cigarettes Smokeless Tobacco: Never Alcohol Use Standard Drinks/Week Comments Never 0 (1 standard drink = 0.6 oz pur e alcohol) Humiliation, Afraid, Rape, and Kick questionnair e Answer Date Recorded Within the last year, have y ou been afraid of your partner or ex-partner? No 06/02/2023 Within the last year, have y ou been humiliated or emotionally abused in other ways by your partner or ex-partner? No Within the last year, have y ou been kicked, hit, slapped, or otherwise physically hurt by your partner or ex-partner? No 06/02/2023 Within the last year, have y ou been raped or forced to have any kind of sexual activity by your partner or ex-partner? No 06/02/2023 Social Connection and Isolat ion Panel [NHANES] Answer Date Recorded In a typical week, how many times do you talk on the phone with family, friends, or neighbors? More than three times a week 06/02/2023 How often do you get togethe r with friends or relatives? Twice a week 06/02/2023 How often do you attend chur or holiness services? Never 06/02/2023 Do you belong to any clubs o r organizations such as yarsani groups, unions, fraternal or athletic groups, or school groups? No 06/02/2023 How often do you attend meet ings of the clubs or organizations you belong to? Never 06/02/2023 Are you , , di vorced, , never , or living with a partner? 06/02/2023 AUDIT-C Answer Date Recorded Q1: How often do you have a drink containing alcohol? Never 06/02/2023 Q2: How many drinks containi ng alcohol do you have on a typical day when you are drinking? Patient does not drink Q3: How often do you have si x or more drinks on one occasion? Never 06/02/2023 Overall Financial Resource Strain (CARDIA) Answe r Date Recorded How hard is it for you to pa y for the very basics like food, housing, medical care, and heating? Not hard at all 06/02/2023 PHQ-2 Answer Date Recorded Patient Health Questionnaire-2 Score 0 06/11/2023 [facility] - Occupational Stress Questionnaire Answer Date Recorded Do you feel stress - tense, restless, nervous, or anxious, or unable to sleep at night because your mind is troubled all the time - these days? To some extent 06/02/2023 Exercise Vital Sign Answer Date Recorde d On average, how many days pe r week do you engage in moderate to strenuous exercise (like a brisk walk)? 3 days 06/02/2023 On average, how many minutes do you engage in exercise at this level? 20 min 06/02/2023 Hunger Vital Sign Answer Date Recorded Within the past 12 months, y ou worried that your food would run out before you got the money to buy more. Never true 06/02/19 24 Within the past 12 months, t he food you bought just didn't last and you didn't have money to get more. Never true 06/02/2023 PRAPARE - Transportation Answer Date Re corded In the past 12 months, has l ack of transportation kept you from medical appointments or from getting medications? No 09/2023 In the past 12 months, has l ack of transportation kept you from meetings, work, or from getting things needed for daily living? No 06/02/2023 Housing Stability Vital Sign Answer Aguila e Recorded In the last 12 months, was t here a time when you were not able to pay the mortgage or rent on time? No 06/02/2023 In the last 12 months, how many places have you lived? 1 06/02/2023 In the last 12 months, was t here a time when you did not have a steady place to sleep or slept in a jail (including now)? No 06/02/2023 Comments Unknown Sex and Gender Information Value Date Recorded Sex Assigned at Not on file Legal Sex Female 7:17 PM EDT Gender Identity Not on file Sexual Orientation Not on file documented as of this encounter Plan of Treatment Upcoming Encounters Date Type Department Care Team (Late st Contact Info) Description 05/02/2025 10:30 AM EST Office Visit [facility] [address] [place] [phone] Rosario Amezquita NP [address] [place] [address] 11/01/2025 10:30 AM EDT Office Visit [facility] [address] [place] [phone] Rosario Amezquita NP [address] [place] [phone] documented as of this encounter Procedures Procedure Name Priority Date/Time Associated Diagnosis Comments MM SCREENING MAMM WITH 3D ADONAY - US AND ADDITIONAL Routine 08/13/2023 8:46 AM EDT documented in this encounter Results * MM SCREENING MAMM WITH 3D ADONAY - US AND ADDITIONAL (08/13/2023 8:46 AM EDT) Anatomical Region Laterality Modality Radiographic Amarilis ging us Rosario Amezquita GARDEN IMPLEMENT MECHANIC IMG XR PROCEDURES Final Result documented in this encounter Visit Diagnoses Not on filedocumented in this encounter Additional Health Concerns Assessment Noted Time PHQ-9 Depression Total Score: 1 06/11/19 1:42 PM EST documented as of this encounter Care Teams Senior Climate Advisor Relationship Specialty Start Date End Date Rosario Amezquita NP [address] [place] [address] PCP - Vidal HERNANDEZ 04/27/23 Dayton Amaya MD [address] [place] [address] PCP - General Family Medicine 06/11/23 Rosario Amezquita NP [address] [place] [address] Referring Physician Nurse Practitioner 11/12/22 Rosario Amezquita NP [address] [place] [address] Nurse Practitioner Family Medicine 06/11/23 Denisse Saldana LPN Licensed Practical Nurse Family Medicine 09/29/2310/01/23 documented as of this encounter
--- OUTSIDE RECORDS SUMMARY | 2024-11-16 12:39 | XMS_ITS | Encounter Summary ---
Author Organization [facility] Address [address] [place] [address] Care Team Providers Care Occupational Therapy Director Name Role Phone Dayton Amaya MD Primary Care Provider Rosario Amezquita JOURNEYMAN PIPE FITTER Unavailable [phone] Rosario Amezquita JOURNEYMAN PIPE FITTER Unavailable [phone] Dayton Amaya MD Primary Care Provider [phone] Rosario Amezquita JOURNEYMAN PIPE FITTER Unavailable [phone] Denisse Saldana LPN Unavailable Unavailable Encounter Details Date Type Department Care Team (Late st Contact Info) Description 06/02/2023 Abstract [facility] [address] [place] [phone] Rosario Amezquita NP [address] [place] [address] Social History Tobacco Use Types Packs/Day Years Used Date Smoking Tobacco: Former Cigarettes Smokeless Tobacco: Never Tobacco Cessation:Counseling Given: Not Answered Alcohol Use Standard Drinks/Week Comments Never 0 [...] How often do you attend chur or nondenominational services? Never 06/02/2023 Do you belong to any clubs o r organizations such as roman catholic groups, unions, fraternal or athletic groups, or [...] Date Recorded Patient Health Questionnaire-2 Score 0 04/29/2023 [facility]ational Stress Questionnaire Answer [...] place to sleep or slept in a skilled nursing (including now)? No 06/02/2023 Comments Unknown Sex and Gender Information Value Date Recorded Sex Assigned at Not on file Legal Sex Female 7:17 PM EDT Gender Identity Not on file Sexual Orientation Not on file documented as of this encounter Functional Status * Audit-C Score Answer Date of Assessment Author 0 06/02/2023 2:05 PM Reta Dee * Q1: How often do you have a drink containing alcohol? Answer Date of Assessment Author Never 06/02/2023 2:05 PM Reta Dee * Q2: How many drinks containing alcohol do you have on a typical day when you are drinking? Answer Date of Assessment Author Patient does not drink 06/02/2023 2:05 PM Reta See * Q3: How often do you have six or more drinks on one occasion? Answer Date of Assessment Author Never 06/02/2023 2:05 PM Reta Dee documented as of this encounter Plan of Treatment Upcoming Encounters Date Type Department Care Team (Late st Contact Info) Description 05/02/2025 10:30 AM EST Office Visit [facility] [address] [place] [address] Rosario Amezquita, ANSELMO [address] [place] [address] 11/01/2025 10:30 AM EDT Office Visit [facility] [address] [place] [phone] Rosario Amezquita, ASNELMO [address] [place] [address] documented as of this encounter Visit Diagnoses Not on filedocumented in this encounter Care Teams Occupational Therapy Director Relationship Specialty Start Date End Date Dayton Amaya MD PCP - General Family Medicine 11/12/22 06/10/23 Rosario Amezquita NP [address] [place] [phone] PCP - Vidal HERNANDEZ 04/27/23 Dayton Amaya MD [address] [place] [address] PCP - General Family Medicine 06/11/23 Rosario Amezquita NP [address] [place] [phone] Referring Physician Nurse Practitioner 11/12/22 Rosario Amezquita NP [address] [place] [phone] Nurse Practitioner Family Medicine 06/11/23 Denisse Saldana LPN Licensed Practical Nurse Family Medicine 09/29/2310/01/23 documented as of this encounter
--- OUTSIDE RECORDS SUMMARY | 2024-11-16 12:39 | XMS_ITS | Encounter Summary ---
Author Organization [facility] Address [address] [place] [address] Care Team Providers Care Furniture Repair Technician Name Role Phone Barbernicoletteyuri Rosario Lamb CNP Primary Care Provider [phone] Source Comments In the event this information is protected by the Federal Confidentiality of Alcohol and Drug AbusePatient Records regulations: The Federal rules restrict any use of the information to criminally investigate or prosecute any alcohol or drug abuse patient.[facility] Encounter Details Date Type Department Care Team (Latest Contact Info) Description 01/14/2022 H&P External-NonCCF Provider, External, CHEKO Do not enter address information under generic External Provider. 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
--- OUTSIDE RECORDS SUMMARY | 2024-11-16 12:39 | XMS_ITS | Encounter Summary ---
Author Organization [facility] Address [address] [place] [address] Care Team Providers Care Sock Examiner Name Role Phone Rosario Amezquita NP Unavailable [phone] Rosario Amezquita NP Unavailable [phone] Dayton Amaya MD Primary Care Provider Rosario Amezquita NP Unavailable [phone] Denisse Saldana LPN Unavailable Unavailable Encounter Details Date Type Department Care Team (Late st Contact Info) Description 08/21/2023 Clinisync Result Encounter [facility] External Department Unsolicited Rosario Amezquita, ANSELMO [address] [place] [address] Social History Tobacco Use Types Packs/Day Years [...] How often do you attend chur or taoist services? Never 06/02/2023 Do you belong to any clubs o r organizations such as jew groups, unions, fraternal or athletic groups, or [...] Recorded Patient Health Questionnaire-2 Score 0 06/11/2023 [facility] - Occupational Stress Questionnaire Answer Date [...] place to sleep or slept in a assisted (including now)? No 06/02/2023 Comments Unknown Sex [...] [facility] [address] [place] [address] Rosario Amezquita NP [address] [place] [address] 11/01/2025 10:30 AM EDT Office Visit [facility] [address] [place] [address] Rosario Amezquita NP [address] [place] [address] documented as of this encounter Procedures Procedure Name Priority Date/Time Associated Diagnosis Comments MM TOMOSYNTHESIS SCREENING BI 08/21/2023 7:38 AM EDT documented in this encounter Results * MM TOMOSYNTHESIS SCREENING BI (08/21/2023 7:38 AM EDT) Anatomical Region Laterality Modality Other 08/21/2023 7:38 AM EDT Narrative 08/21/2023 7:39 [place] [address] Mammography Report Signed Patient: ELIZABETH JOSEPH MR#: [id number] : 1955 Acct:[id number] Age/Sex: 68 / F ADM Date: 08/13/23 Loc: MAMMO Attending Dr: Rosario Amezquita NP Ordering Physician: Rosario Amezquita NP Results: Date of Service: 08/20/23 Follow Up: Procedure(s): MM tomosynthesis screening BI Accession Number(s): [id number] cc: Rosario Amezquita NP Patient Name: ELIZABETH JOSEPH MR#: [id number] : 1955 Exam Date: 08/20/2023 Ordering Doctor: MONIQUE Amezquita CNP RADIOLOGY REPORT PROCEDURE: MM TOMOSYNTHESIS SCREENING BI COMPARISON: MG MAMM SCREEN 3D KARLOS CAD, 07/16/2021. MG MAMM SCREEN 3D KARLOS CAD, 07/21/2022. INDICATIONS: Karlos Screening Mammogram Calculator Name NCI Breast Cancer Risk Assessment Tool 5 Year Breast Cancer Risk 1.20% Lifetime Breast Cancer Risk 4.00% Personal Breast Cancer No Personal Ovarian Cancer No Treatments None Family Cancers Father with prostate cancer at age 75. LOCATION: [facility] BREAST COMPOSITION: There are scattered areas of fibroglandular density. FINDINGS: DIAGNOSTIC CATEGORY 1--NEGATIVE. NO CHANGE FROM COMPARISON ASSESSMENT. Scattered benign-appearing calcifications are present. Scattered benign-appearing lymph nodes are present. RIGHT BREAST: No significant suspicious finding. LEFT BREAST: No significant suspicious finding. RECOMMENDATIONS: ROUTINE MAMMOGRAM AND CLINICAL EVALUATION IN 12 MONTHS. PLEASE NOTE: A NORMAL MAMMOGRAM DOES NOT EXCLUDE THE POSSIBILITY OF BREAST CANCER. A CLINICALLY SUSPICIOUS PALPABLE LUMP SHOULD BE BIOPSIED. Dictated by: Edi Celis MD on 08/21/2023 at 07:36 Approved by: Edi Celis MD on 08/21/2023 at 07:38 Dictated By: Edi Celis M.D. Signed By: 08/21/23 0739 DD/ 0738 TD/TT: Board Of Education Secretary: Procedure Note Radiology, Radiologist, MD - 08/21/2023 [place] [address] Mammography Report Signed Patient: ELIZABETH JOSEPH CMR#: [id number] : 1955cct:[id number] Age/Sex: 68 / FADM Date: 08/13/23 Loc: MAMMO Attending Dr: Rosario Amezquita STICK PULLER Ordering Physician: Rosario Amezquita NPResults: Date of Service: 08/20/23Follow Up: Procedure(s): MM tomosynthesis screening BI Accession Number(s): [id number] cc: Rosario Amezquita NP Patient Name: ELIZABETH JOSEPH MR#: [id number] : 1955 Exam Date: 08/20/2023 Ordering Doctor: MONIQUE Amezquita FRAME STRIPPER RADIOLOGY REPORT PROCEDURE: MM TOMOSYNTHESIS SCREENING BI COMPARISON: MG MAMM SCREEN 3D KARLOS CAD, 07/16/2021. MG MAMM SCREEN 3DBIL CAD, 07/21/2022. INDICATIONS: Karlos Screening Mammogram Calculator Name NCI Breast Cancer Risk Assessment Tool 5 Year Breast Cancer Risk 1.20% Lifetime Breast Cancer Risk 4.00% Personal Breast Cancer No Personal Ovarian Cancer No Treatments None Family Cancers Father with prostate cancer at age 75. LOCATION: [facility] BREAST COMPOSITION: There are scattered areas of fibroglandulardensity. FINDINGS: DIAGNOSTIC CATEGORY 1--NEGATIVE. NO CHANGE FROM COMPARISON ASSESSMENT. Scattered benign-appearing calcifications are present. Scattered benign-appearing lymph nodes are present. RIGHT BREAST: No significant suspicious finding. LEFT BREAST: No significant suspicious finding. RECOMMENDATIONS: ROUTINE MAMMOGRAM AND CLINICAL EVALUATION IN 12 MONTHS. PLEASE NOTE: A NORMAL MAMMOGRAM DOES NOT EXCLUDE THE POSSIBILITY OFBREAST CANCER. A CLINICALLY SUSPICIOUS PALPABLE LUMP SHOULD BE BIOPSIED. Dictated by: Edi Celis MD on 08/21/2023 at 07:36 Approved by: Edi Celis MD on 08/21/2023 at 07:38 Dictated By: Edi Celis M.D. Signed By:08/21/23 0739 DD/ 0738 TD/TT: Board Of Education Secretary: Rosario Amezquiat STICK PULLER [facility] Final Result documented in this encounter Visit Diagnoses Not on filedocumented in this encounter Additional Health Concerns Assessment Noted Time PHQ-9 Depression Total Score: 1 06/11/19 1:42 PM EST documented as of this encounter Care Teams Sock Examiner Relationship Specialty Start Date End Date Rosario Amezquita NP [address] [place] [address] PCP - Vidal HERNANDEZ 04/27/23 Dayton Amaya MD [address] [place] [address] PCP - General Family Medicine 06/11/23 Rosario Amezquita NP [address] [place] [address] Referring Physician Nurse Practitioner 11/12/22 Rosario Amezquita NP [address] [place] [address] Nurse Practitioner Family Medicine 06/11/23 Denisse Saldana LPN Licensed Practical Nurse Family Medicine 09/29/2310/01/23 documented as of this encounter
--- OUTSIDE RECORDS SUMMARY | 2024-11-16 12:39 | XMS_ITS | Encounter Summary ---
Author Organization [facility] Address [id number] [address] [place] [address] Care Team Providers Care Tool Lapper Hand Name Role Phone Unavailable Primary Care Provider Unavailabl e Encounter Details Date Type Department Care Team (Late st Contact Info) Description 01/27/2023 Orders Only [facility] [address] [place] [address] External, Scanning Provider Pain (Primary Dx) Social History Tobacco Use Types Packs/Day Years Used Date Smoking Tobacco: Never Smokeless Tobacco: Never Childcare Answer Date Recorded Childcare Unknown 10/06/2018 [...] as of this encounter Plan of Treatment Not on file documented as of this encounter Results * X-ray hips bilateral with or without pelvis 5+ views (11/14/2022 12:05 PM EDT) us Scanning Provider External IMG DIAGNOSTIC IMAGIN G ORDERABLES Final Result * X-ray spine scoliosis 1 view (11/14/2022 11:55 AM EDT) us Scanning Provider External IMG DIAGNOSTIC IMAGIN G ORDERABLES Final Result documented in this encounter Visit Diagnoses Diagnosis Pain- Primary Generalized pain documented in this encounter
--- OUTSIDE RECORDS SUMMARY | 2024-11-16 12:39 | XMS_ITS | Patient Health Record ---
Author Organization [facility] Address [address] [address] Care Team Providers Care Anesthesiologist Attending Name Role Phone Lesley Herndon Primary Care Provider Prema Chowdary Unavailable [phone] Haleigh Mcconnell Unavailable [phone] Reason For Referral No Information Encounters Encounter Location Date Provider Diagnosis [facility] [address] [place] [address] 11/02/2024 Haleigh Mcconnell [facility] [address] [place] [address] 11/09/2024 Lesley Angulo Acute gingivitis, plaque induced K05.00 and Dental caries on pit and fissure surface penetrating into dentin K02.[address] [place] [address] 04/13/2024 Lesley Angulo Dental caries on pit and fissure surface penetrating into dentin K02.52 [facility] [address] [place] [address] 11/02/2024 Lesley Angulo Dental caries on pit and fissure surface penetrating into dentin K02.52 Assessments Encounter Date Diagnosis (ICD Code) Assessment Notes Treatment Notes Treatment Clinical Notes Section Notes 04/13/2024 Dental caries on pit and fissure surface penetrating into dentin (ICD-10 - K02.52) 11/02/2024 Dental caries on pit and fissure surface penetrating into dentin (ICD-10 - K02.52) 11/09/2024 Acute gingivitis, plaque induced (ICD-10 - K05.00) 11/09/2024 Dental caries on pit and fissure surface penetrating into dentin (ICD-10 - K02.52) Plan Of Treatment Next Appt Details Provider Name:Haleigh Mcconnell, 03/15/2025 01:00:00 PM, [address], [place], [address], Provider Name:Rigo Anna, 1 05/29/2024 02:50:00 PM, [address], [place], [address], Provider Name:Lindsay Babcock, 05/15/2025 11:00:00 AM, [address], [place], [address], Insurance Providers Payer Name Payer Address Payer Phone Subscriber Number Group Number Insured Name Patient Relationship to Insured Coverage Start Date Coverage End Date MEDICARE [place] [address] [place] [address] [id number] [employer] [place] Self - patient is the insured 2 [employer] MEDICARE ADVANTAGE [address] [place] [address] [phone] [id number] [employer] Self - patient is the insured 4 [employer] [address] [address] [place] [address] [phone] [id number] [employer] [place] Self - patient is the insured 4
--- OUTSIDE RECORDS SUMMARY | 2024-11-16 12:39 | XMS_ITS | Encounter Summary ---
Author Organization [facility] Address [address] [place] [address] Care Team Providers Care Squadron Worker Name Role Phone Dayton Amaya MD Primary Care Provider [phone] Rosario Amezquita NP Unavailable [phone] Rosario Amezquita NP Unavailable [phone] Dayton Amaya MD Primary Care Provider [phone] AicRosario weaver NP Unavailable [phone] Denisse Saldana LPN Unavailable Unavailable Encounter Details Date Type Department Care Team (Late st Contact Info) Description 06/03/2023 Clinisync Result Encounter [facility] External Department Unsolicited Provider, Generic External Data Social History Tobacco Use Types Packs/Day Years [...] 06/02/2023 How often do you attend chur ch or amish services? Never 06/02/2023 Do you belong to any clubs o r organizations such as latter-day groups, unions, fraternal or athletic groups, or [...] Recorded Patient Health Questionnaire-2 Score 0 04/29/2023 [facility] - Occupational Stress Questionnaire Answer Date Recorded [...] place to sleep or slept in a fci (including now)? No 06/02/2023 Comments Unknown Sex and Gender Information Value Date Recorded Sex Assigned at Not on file Legal Sex Female 7:17 PM EDT Gender Identity Not on file Sexual Orientation Not on file documented as of this encounter Plan of Treatment Upcoming Encounters Date Type Department Care Team (Late st Contact Info) Description 05/02/2025 10:30 AM EST Office Visit [facility] [address] [place] [address] Rosario Amezquita NP [address] [place] [address] 11/01/2025 10:30 AM EDT Office Visit [facility] [address] [place] [address] Rosario Amezquita NP [address] [place] [address] documented as of this encounter Procedures Procedure Name Priority Date/Time Associated Diagnosis Comments XR FOOT RT MIN 3V 06/03/2023 1:0 8 PM EST documented in this encounter Results * XR FOOT RT MIN 3V (06/03/2023 1:08 PM EST) Anatomical Region Laterality Modality Other 06/03/2023 1:08 PM EST Narrative 06/03/2023 1:11 PM EST [place] [id number] XRay Report Signed Patient: ELIZABETH JOSEPH MR#: [id number] : 1955 Acct:[id number] Age/Sex: 67 / F ADM Date: 06/03/23 Loc: RAD Attending Dr: Wil Farfan D.P.M. Ordering Physician: iWl Farfan D.P.M. Date of Service: 06/03/23 Procedure(s): XR foot RT min 3V Accession Number(s): [id number] cc: Rosario Amezquita SHIPPING INSPECTOR; Wil Farfan D.P.M. [place] [address] Patient Name: ELIZABETH JOSEPH MRN: [id number] date: 1955 Sex: F Assigned Patient Location: [facility] Current Patient Location: [facility] Accession/Order Number: [id number] Exam Date: 06/03/2023 11:09 Report Date: 06/03/2023 13:08 At the request of: WIL FARFAN Procedure: XR foot RT min 3V PROCEDURE: XR foot RT min 3V COMPARISON: 02/03/2023 HISTORY: RIGHT FOOT PAIN FINDINGS: BONES:Stable fusion of the first metatarsal-phalangeal joint with a dorsal plate and screws. Incomplete bony bridging. No acute fracture, dislocation or mechanical failure. Mild degenerative changes with marginal osteophyte formation. Minimal enthesopathic spurring plantar calcaneus SOFT TISSUES:Negative. No visible soft tissue swelling. EFFUSION:None visible. OTHER: Negative. XR/XR foot RT min 3V IMPRESSION: Stable first metatarsal-phalangeal joint fusion with incomplete bony bridging Electronically authenticated by: JOSE VAUGHN Date: 06/03/2023 13:08 Dictated By: Jose Vaughn M.D. Signed By: 06/03/23 1311 DD/ 1308 TD/TT: Strainer Tender: Procedure Note Radiology, Radiologist, MD - 06/03/2023 [facility] [place] [id number] XRay Report Signed Patient: ELIZABETH JOSEPH CMR#: [id number] : 1955cct:[id number] Age/Sex: 67 / FADM Date: 06/03/23 Loc: RAD Attending Dr: Wil Farfan D.P.M. Ordering Physician: Wil Farfan D.P.M. Date of Service: 06/03/23 Procedure(s): XR foot RT min 3V Accession Number(s): [id number] cc: Rosario Amezquita NP; Wil Farfan D.P.M. The [address] [address] Patient Name: ELIZABETH JOSEPH MRN: [id number] date: 1955 Sex: F Assigned Patient Location: [facility] Current Patient Location: [facility] Accession/Order Number: [id number] Exam Date: 06/03/2023 11:09 Report Date: 06/03/2023 13:08 At the request of: WIL FARFAN Procedure: XR foot RT min 3V PROCEDURE: XR foot RT min 3V COMPARISON: 02/03/2023 HISTORY: RIGHT FOOT PAIN FINDINGS: BONES:Stable fusion of the first metatarsal-phalangeal joint with a dorsal plate and screws. Incomplete bony bridging. No acute fracture, dislocationor mechanical failure. Mild degenerative changes with marginal osteophyte formation. Minimal enthesopathic spurring plantar calcaneus SOFT TISSUES:Negative. No visible soft tissue swelling. EFFUSION:None visible. OTHER: Negative. XR/XR foot RT min 3V IMPRESSION: Stable first metatarsal-phalangeal joint fusion with incomplete bonybridging Electronically authenticated by: JOSE VAUGHN Date: 06/03/2023 13:08 Dictated By: Jose Vaughn M.D. Signed By:06/03/23 1311 DD/ 1308 TD/TT: Strainer Tender: Generic External Data Provider [facility] Final Result documented in this encounter Visit Diagnoses Not on filedocumented in this encounter Care Teams Squadron Worker Relationship Specialty Start Date End Date Dayton Amaya MD PCP - General Family Medicine 11/12/22 06/10/23 Rosario Amezquita NP [address] [place] [address] PCP - Vidal HERNANDEZ 04/27/23 Dayton Amaya MD [address] [place] [address] PCP - General Family Medicine 06/11/23 Rosario Amezquita NP [address] [place] [address] Referring Physician Nurse Practitioner 11/12/22 Rosario Amezquita NP [address] [place] [address] Nurse Practitioner Family Medicine 06/11/23 Denisse Saldana LPN Licensed Practical Nurse Family Medicine 09/29/2310/01/23 documented as of this encounter
--- OUTSIDE RECORDS SUMMARY | 2024-11-16 12:39 | XMS_ITS | Encounter Summary ---
Author Organization [facility] Address [address] [place] [address] Care Team Providers Care Manager Sharepoint Name Role Phone Rosario Amezquita NP Unavailable [phone] Rosario Amezquita NP Unavailable [phone] Dayton Amaya MD Primary Care Provider Rosario Amezquita NP Unavailable [phone] Encounter Details Date Type Department Care Team (Late st Contact Info) Description 10/06/2024 Orders Only [facility] [address] [place] [address] Jose Llanes MD [address] [place] [address] [place] [address] Social History Tobacco Use Types Packs/Day Years [...] How often do you attend chur or protestant services? Never 06/02/2023 Do you belong to any clubs o r organizations such as sikhism groups, unions, fraternal or athletic groups, or [...] Recorded Patient Health Questionnaire-2 Score 0 06/11/2023 [facility] - Occupational Stress Questionnaire Answer Date [...] place to sleep or slept in a alf (including now)? No 06/02/2023 Comments Unknown Sex [...] EST Office Visit [facility] [address] [place] [address] Rosario Amezquita NP [address] [place] [address] 11/01/2025 10:30 AM EDT Office Visit [facility] [address] [place] [address] Rosario Amezquita NP [address] [place] [address] documented as of this encounter Procedures Procedure Name Priority Date/Time Associated Diagnosis Comments XR FOOT 3+ VIEWS RIGHT Routine 10/06/2024 3:34 PM EDT documented in this encounter Results * XR foot 3+ views right (10/06/2024 3:34 PM EDT) Anatomical Region Laterality Modality Lower Extremities, Foot Right Radiogra phic Imaging Jose Llanes MD IMG XR PROCEDURES Final Re sult documented in this encounter Visit Diagnoses Not on filedocumented in this encounter Additional Health Concerns Assessment Noted Time PHQ-9 Depression Total Score: 1 06/11/19 1:42 PM EST documented as of this encounter Care Teams Manager Sharepoint Relationship Specialty Start Date End Date Rosario Amezquita NP [address] [place] [address] PCP - Vidal HERNANDEZ 04/27/23 Dayton Amaya MD [address] [place] [address] PCP - General Family Medicine 06/11/23 Rosario Amezquita NP [address] [place] [address] Referring Physician Nurse Practitioner 11/12/22 Rosario Amezquita NP [address] [place] [address] Nurse Practitioner Family Medicine 06/11/23 documented as of this encounter
--- OUTSIDE RECORDS SUMMARY | 2024-11-16 12:39 | XMS_ITS | Encounter Summary ---
Author Organization [facility] Address [address] [place] [address] Care Team Providers Care Projection Printer Name Role Phone Rosario Amezquita FORECLOSURE PARALEGAL Unavailable [phone] Rosario Amezquita NP Unavailable [phone] Dayton Amaya MD Primary Care Provider [phone] Rosario Amezquita NP Unavailable [phone] Reason for Visit * Reason Comments Med Refill Encounter Details Date Type Department Care Team (Late st Contact Info) Description 01/18/2024 Refill [facility] [address] [place] [address] Rosario Amezquita FORECLOSURE PARALEGAL [address] [place] [address] Mixed hyperlipidemia Social History Tobacco Use Types Packs/Day Years [...] How often do you attend chur or pentecostalism services? Never 06/02/2023 Do you belong to any clubs o r organizations such as faith groups, unions, fraternal or athletic groups, or [...] Recorded Patient Health Questionnaire-2 Score 0 06/11/2023 [facility] - Occupational Stress [...] place to sleep or slept in a chcf (including now)? No 06/02/2023 Comments Unknown Sex [...] Visit [facility] [address] [place] [address] Rosario Amezquita NP [address] [place] [address] 11/01/2025 10:30 AM EDT Office Visit [facility] [address] [place] [address] Rosario Amezquita NP [address] [place] [address] documented as of this encounter Visit Diagnoses Diagnosis Mixed hyperlipidemia Mixed hyperlipidemia documented in this encounter Additional Health Concerns Assessment Noted Time PHQ-9 Depression Total Score: 1 06/11/19 1:42 PM EST documented as of this encounter Care Teams Projection Printer Relationship Specialty Start Date End Date Rosario Amezquita NP [address] [place] [address] PCP - Vidal HERNANDEZ 04/27/23 Dayton Amaya MD [address] [place] [address] PCP - General Family Medicine 06/11/23 Rosario Amezquita NP [address] [place] [address] Referring Physician Nurse Practitioner 11/12/22 Rosario Amezquita NP [address] [place] [address] Nurse Practitioner Family Medicine 06/11/23 documented as of this encounter
--- OUTSIDE RECORDS SUMMARY | 2024-11-16 12:40 | XMS_ITS | Encounter Summary ---
Author Organization [facility] Address [address] [place] [address] Care Team Providers Care Transportation Attendant Name Role Phone Dayton Amaya MD Primary Care Provider [phone] Rosario Amezquita WELLNESS PROGRAM MANAGER Unavailable [phone] Rosario Amezquita WELLNESS PROGRAM MANAGER Unavailable [phone] Dayton Amaya MD Primary Care Provider [phone] Rosario Amezquita WELLNESS PROGRAM MANAGER Unavailable [phone] Denisse Saldana LPN Unavailable Unavailable Reason for Visit * Reason Comments Med Refill Encounter Details Date Type Department Care Team (Late st Contact Info) Description 05/30/2023 Refill [facility] [address] [place] [address] Rosario Amezquita NP [address] [place] [address] Anxiety (Primary Dx) Social History Tobacco Use Types [...] How often do you attend chur or methodist services? Never 06/02/2023 Do you belong to any clubs o r organizations such as taoist groups, unions, fraternal or athletic groups, or [...] Recorded Patient Health Questionnaire-2 Score 0 04/29/2023 [facility] Occupat ional Health - Occupational Stress [...] [facility] [address] [place] [address] Rosario Amezquita, ANSELMO [address] [place] [address] 11/01/2025 10:30 AM EDT Office Visit [facility] [address] [place] [address] Rosario Amezquita, ANSELMO [address] [place] [address] documented as of this encounter Visit Diagnoses Diagnosis Anxiety- Primary Anxiety state, unspecified documented in this encounter Care Teams Transportation Attendant Relationship Specialty Start Date End Date Dayton Amaya MD PCP - General Family Medicine 11/12/22 06/10/23 Rosario Amezquita NP [address] [place] [address] PCP - Vidal HERNANDEZ 04/27/23 Dayton Amaya MD [address] [place] [address] PCP - General Family Medicine 06/11/23 Rosario Amezquita NP [address] [place] [address] Referring Physician Nurse Practitioner 11/12/22 Rosario Amezquita NP [address] [place] [address] Nurse Practitioner Family Medicine 06/11/23 Denisse Saldana LPN Licensed Practical Nurse Family Medicine 09/29/2310/01/23 documented as of this encounter
--- NOTE | 2024-11-16 12:59 | CA_ITS ---
[facility] Test Date: 2024-11-16 Pat Name: SOFIE ADRIAN Department: Room: - Gender: Female [employer]: AMADA PORTER : 1955 Requested By: MERCEDES CESAR Order Number: [id number] Reading MD: ALFREDO VALDEZ M.D. Interpretive Statements Summary of the findings: Right leg: TIMMY= 1.04; TBI= 0.77. Doppler waveforms demonstrate biphasic flow at the posterior tibial artery and multiphasic flow at the dorsalis pedis artery. Left leg: TIMMY= 1.10; TBI= 0.61. Doppler waveforms demonstrate biphasic flow at the posterior tibial artery and multiphasic flow at the dorsalis pedis artery. Segmental pressures: Segmental pressures are normal bilaterally. Pulse volume recordings: PVRs at the high thigh, below knee, and ankle levels show normal waveforms. Conclusion: Right and left ankle-brachial indices are suggestive of normal overall arterial flow at rest. Toe-brachial indices are suggestive of left sided PAD. Segmental pressures show no segmental disease. Pulse volume recordings indicate good overall resting arterial flow. The study shows evidence of possible PAD with normal overall arterial flow at rest. Electronically Signed On 11-18-2024 8:13:53 EDT by ALFREDO VALDEZ M.D.
== END 2024-11-16 12:37 | disposition home or self-care (01) ==
LOC: CARD 12:36
PROVIDERS: PCP Nurse Practitioner; Visit Provider Podiatrist Foot & Ankle Surgery
DX: R09.89 Other specified symptoms and signs involving the circulatory and respiratory systems (principal); I73.9 Peripheral vascular disease, unspecified
CPT/HCPCS: 93923

== ENCOUNTER 2024-12-20 08:54 | Outpatient (OUT) | payer MEDICARE, SELFPAY ==
--- OUTSIDE RECORDS SUMMARY | 2024-12-20 09:00 | XMS_ITS | CCD ---
Author Organization [facility] [employer] Care Team Providers Care Receiving Coordinator Name Role Phone NATASHA YUN (INSULATION NOZZLEMAN) Unavailable UnavailNATASHA Sherman (INSULATION NOZZLEMAN) Unavailable UnavailTERESA Miranda Unavailable Unavailable ALAEDEEN, ADIS Unavailable Unavailable AICHHOLZ, LABORER TREE TAPPING ROSARIO Admitting Unavailable AICHHOLZ, LABORER TREE TAPPING ROSARIO Attending Unavailable AICHHOLZ, LABORER TREE TAPPING ROSARIO Consulting Unavailable AICHHOLZ, LABORER TREE TAPPING ROSARIO Primary Care Unavailable DR ISAIAH ROJAS Consulting Unavailable AICHHOLZ, LABORER TREE TAPPING ROSARIO Admitting Unavailable AICHHOLZ, LABORER TREE TAPPING ROSARIO Attending Unavailable AICHHOLZ, LABORER TREE TAPPING ROSARIO Consulting Unavailable AICHHOLZ, LABORER TREE TAPPING ROSARIO Primary Care Unavailable AICHHOLZ, LABORER TREE TAPPING ROSARIO Admitting Unavailable AICHHOLZ, LABORER TREE TAPPING ROSAIRO Consulting Unavailable AICHHOLZ, LABORER TREE TAPPING ROSARIO Attending Unavailable AICHHOLZ, LABORER TREE TAPPING ROSARIO Primary Care Unavailable DR ISAIAH ROJAS Consulting Unavailable JORDAN, JOCELINE Attending Unavailable DR ISAIAH ROJAS Consulting Unavailable JORDAN, JOCELINE Admitting Unavailable AICHHOLZ, LABORER TREE TAPPING ROSARIO Primary Care Unavailable JOCELINE ORTEGA Consulting Unavailable DR ISAIAH ROJAS Consulting Unavailable JORDAN, JOCELINE Admitting Unavailable JORDAN, JOCELINE Attending Unavailable AICHHOLZ, LABORER TREE TAPPING ROSARIO Primary Care Unavailable JORDAN, JOCELINE Consulting Unavailable DR JESSICA SAMPSON Consulting Unavailable GRABIEL, NAYE Admitting Unavailable NAYE SPAIN Attending Unavailable AICHHOLZ, LABORER TREE TAPPING ROSARIO Primary Care Unavailable DR HOLLIE MATA Consulting Unavailable CHAPIN DEJESUS Consulting Unavailable NAYE SPAIN Consulting Unavailable BRIEN JAIMES Consulting Unavailable AICHHOLZ, LABORER TREE TAPPING ROSARIO Consulting Unavailable AICHHOLZ, LABORER TREE TAPPING ROSARIO Admitting Unavailable AICHHOLZ, LABORER TREE TAPPING ROSARIO Attending Unavailable AICHHOLZ, LABORER TREE TAPPING ROSARIO Primary Care Unavailable AICHHOLZ, LABORER TREE TAPPING ROSARIO Admitting Unavailable BIA, MONIQUE ROSARIO Attending Unavailable AICHHOLZ, LABORER TREE TAPPING ROSARIO Consulting Unavailable AICHHOLZ, LABORER TREE TAPPING ROSARIO Primary Care Unavailable Aichholz INSULATION NOZZLEMAN, Rosario Unavailable Aichholroland INSULATION NOZZLEMAN, Rosario Unavailable Dayton Amaya MD Primary Care Provider Bia INSULATION NOZZLEMAN, Rosario Unavailable Bia INSULATION NOZZLEMAN, Rosario Unavailable BIA, ROSARIO Attending Unavailable AICHHOLRoland, ROSARIO Attending Unavailable AICHHOLRoland, ROSARIO Attending Unavailable BIA, ROSARIO Attending Unavailable Allergies Allergy Classification Reported Allergen(s) Allergy Type Date of Onset Reaction(s) Facility (20 sources) Penicillins; Translations: [PENICILLINS] Propensity to adverse reactions to drug (disorder) 10-22-19 14 Rash, Unknown, GI intolerance [facility] Repository (2 sources) Sulfonamides (Antibiotic); Translations: [SULFA (SULFONAMIDE ANTIBIOTICS)] Propensity to adverse reactions to drug (disorder) 10-22-19 14 [facility] Repository (1 source) Sulfonamides (Antibiotic) Drug allergy (disorder) 01-26-20 15 [facility] Repository (20 sources) Sulfacetamide Drug Allergy [...] (20 sources) HMG-CoA Reductase Inhibitor Start: 09-25-2023 End: 01-24-2025 take 1 tablet by mouth at bedtime atorvastatin (Lipitor) 10 MG tablet Indications: Hyperlipidemia Take 1 tablet (10 mg) by mouth at bedtime 90 tablet 1 10/26/2024 01/24/2025 Active Start: 06-11-2023 End: 09-09-2023 take 1 [...] oral tablet (20 sources) Vitamin D Start: 09-16-19 take 1 tablet by mouth at bedtime Calcium 500 + D3 500-15 MG-MCG tablet TAKE 1 TABLET BY MOUTH IN THE MORNING AND BEFORE BEDTIME 09/15/2024 Active Start: 03-08-2024 End: 09-05-2024 take 1 tablet by mouth in the [...] oral tablet (20 sources) Muscle Relaxant Start: 10-26-2024 End: 01-24-2025 take 1 tablet by mouth once cyclobenzaprine (Flexeril) 10 MG tablet Indications: Chronic bilateral low back pain without sciatica Take 1 tablet (10 mg) by mouth every 12 (twelve) hours if needed for muscle spasms 180 tablet 1 10/26/2024 01/24/2025 Active Start: 02-14-2024 End: 10-26-2024 take 1 tablet by mouth in the [...] for muscle spasms. 60 tablet 3 06/28/2024 10/26/2024 Discontinued (Reorder) Start: 06-11-2023 End: 07-11-2023 take 1 tablet [...] sources) Serotonin Reuptake Inhibitor Start: 01-04-2024 End: 01-24-2025 take 1 capsule by mouth once daily FLUoxetine (PROzac) 10 MG capsule Indications: Anxiety Take 1 capsule (10 mg) by mouth Daily 90 capsule 1 10/26/2024 01/24/2025 Active Start: 06-02-2023 End: 09-09-2023 take 1 capsule by mouth in the morning FLUoxetine (PROzac) 20 MG capsule Indications: Anxiety Take 1 capsule (20 mg) by mouth in the morning. 90 capsule 1 06/11/2023 09/09/2023 Active meloxicam 15 mg oral tablet (20 sources) Nonsteroidal Anti-inflammatory Drug Start: 07-19-2024 End: 01-24-2025 take 1 tablet by mouth in the morning meloxicam (Mobic) 15 MG tablet Indications: Chronic bilateral low back pain without sciatica Take 1 tablet (15 mg) by mouth in the morning. 90 tablet 1 10/26/2024 01/24/2025 Active Start: 01-18-2024 End: 04-17-2024 take 1 [...] sources) Proton Pump Inhibitor Start: 09-25-2023 End: 01-24-2025 take 1 capsule by mouth before mealtime omeprazole (PriLOSEC) [address] capsule Indications: Gastroesophageal reflux disease without esophagitis Take 1 capsule (40 mg) by mouth in the morning. Take before meals. 90 capsule 1 10/26/2024 01/24/2025 Active Start: 05-23-2023 End: 09-09-2023 take 1 [...] esophagitis] Onset: 05-23-2023 05-23-2023 Chronic Mood disorders (20 sources) Single episode of major depression in full remission; Translations: [Major depressive disorder, single episode, in full remission] Onset: 02-29-2024 02-29-2024 Chronic Osteoporosis (20 sources) Postmenopausal osteoporosis; Translations: [Age-related osteoporosis without current pathological fracture] Onset: 06-11-2023 06-11-2023 Chronic Residual codes; unclassified (1 source) Family history of malignant neoplasm of prostate; Translations: [FAMILY HX MALIG NEOPLASM PROSTATE] Onset: 07-25-2022 Episodic Substance-related disorders (20 sources) History of opioid abuse; Translations: [Opioid [...] Onset: 12-03-2021 Episodic Deficiency and other anemia (20 sources) Iron deficiency anemia; Translations: [Iron deficiency anemia, unspecified] Onset: 02-29-2024 02-29-2024 Episodic Essential hypertension (20 sources) Essential (primary) hypertension; Translations: [Benign hypertension] Onset: 10-23-2021 Resolved: 03-02-2024 06-03-2023 Chronic Gout and other crystal arthropathies (20 sources) Gout; Translations: [Gout, unspecified] Onset: 06-03-2023 Resolved: 09-02-2023 06-03-2023 Chronic Heart valve disorders (20 sources) Heart murmur; Translations: [Cardiac murmur, unspecified] Onset: 03-02-2024 03-02-2024 Episodic Intestinal obstruction without hernia (2 sources) Other intestinal obstruction; Translations: [Unspecified intestinal obstruction, unspecified as to partial versus complete obstruction] Onset: 01-09-2017 Episodic Mood disorders (20 sources) Mood disorders Onset: 06-11-2023 Resolved: 10-26-2024 06-11-2023 Nausea and vomiting (1 source) Nausea with vomiting, unspecified; Translations: [NAUSEA WITH VOMITING UNSPECIFIED] Onset: 10-23-2021 Episodic Nutritional deficiencies (18 sources) Vitamin deficiency; Translations: [Vitamin deficiency, unspecified] Onset: 04-05-2024 04-05-2024 Episodic Other aftercare (1 source) Other retirement (current) drug therapy; Translations: [OTH DETENTION CURRENT DRUG THERAPY] Onset: 10-23-2021 Episodic Other aftercare (1 source) care home (current) use of aspirin; Translations: [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 ASPIRIN] Onset: 10-23-2021 Episodic [...] Onset: 08-06-2021 Episodic Other connective tissue disease (18 sources) Pain in bilateral legs; Translations: [Pain in right leg] Onset: 04-05-2024 04-05-2024 Episodic Other connective tissue disease (18 sources) Nocturnal muscle cramp; Translations: [Cramp and spasm] Onset: 04-05-2024 04-05-2024 Episodic Other infections; including parasitic (20 sources) Infestation by Sarcoptes scabiei linden hominis; [...] Test Name Value Interpretation Reference Range Facility SEGMENTAL BLOOD PRESSUREon 0 11-18-2024 [place] [address] Cardiology Report Signed Patient: SOFIE ADRIAN MR#: [id number] : 1955 Acct:[id number] Age/Sex: 69 / F ADM Date: 11/16/24 Loc: CARD Attending Dr: Mercedes Cesar D.P.M. Ordering Physician: Mercedes Cesar D.P.M. Date of Service: 11/16/24 Procedure(s): CA segmental UE or LE KARLOS Accession Number(s): [id number] cc: Rosario Amezquita NP; Mercedes Cesar D.P.M. [facility] Test Date: 2024-11-16 Pat Name: SOFIE ADRIAN Department: Room: - Gender: Female Wet Roller: AMADA PORTER : 1955 Requested By: MERCEDES CESAR Order Number: [id number] Caio MD: ALFREDO VALDEZ M.D. Interpretive Statements Summary of the findings: Right leg: TIMMY= 1.04; TBI= 0.77. Doppler waveforms demonstrate biphasic flow at the posterior tibial artery and multiphasic flow at the dorsalis pedis artery. Left leg: TIMMY= 1.10; TBI= 0.61. Doppler waveforms demonstrate biphasic flow at the posterior tibial artery and multiphasic flow at the dorsalis pedis artery. Segmental pressures: Segmental pressures are normal bilaterally. Pulse volume recordings: PVRs at the high thigh, below knee, and ankle levels show normal waveforms. Conclusion: Right and left ankle-brachial indices are suggestive of normal overall arterial flow at rest. Toe-brachial indices are suggestive of left sided PAD. Segmental pressures show no segmental disease. Pulse volume recordings indicate good overall resting arterial flow. The study shows evidence of possible PAD with normal overall arterial flow at rest. Electronically Signed On 11-18-2024 8:13:53 EDT by ALFREDO VALDEZ M.D. Dictated By: ALFREDO VALDEZ Signed By: 11/18/24 0813 11/18/24 0814 DD/ 1405 TD/TT: Vocational Education Professional: [facility] Radiology, Radiologshannan jain MD - 11/18/2024 [place] [address] Cardiology Report Signed Patient: SOFIE ADRIAN MR#: [id number] : 1955 Acct:[id number] Age/Sex: 69 / F ADM Date: 11/16/24 Loc: CARD Attending Dr: Mercedes Cesar D.P.M. Ordering Physician: Mercedes Cesar D.P.M. Date of Service: 11/16/24 Procedure(s): CA segmental UE or LE KARLOS Accession Number(s): [id number] cc: Rosario Amezquita INSULATION NOZZLEMAN; Mercedes Cesar D.P.M. [facility] Test Date: 2024-11-16 Pat Name: SOFIE ADRIAN Department: Room: - Gender: Female Wet Roller: AMADA PORTER : 1955 Requested By: MERCEDES CESAR Order Number: [id number] Reading MD: ALFREDO VALDEZ M.D. Interpretive Statements Summary of the findings: Right leg: TIMMY= 1.04; TBI= 0.77. Doppler waveforms demonstrate biphasic flow at the posterior tibial artery and multiphasic flow at the dorsalis pedis artery. Left leg: TIMMY= 1.10; TBI= 0.61. Doppler waveforms demonstrate biphasic flow at the posterior tibial artery and multiphasic flow at the dorsalis pedis artery. Segmental pressures: Segmental pressures are normal bilaterally. Pulse volume recordings: PVRs at the high thigh, below knee, and ankle levels show normal waveforms. Conclusion: Right and left ankle-brachial indices are suggestive of normal overall arterial flow at rest. Toe-brachial indices are suggestive of left sided PAD. Segmental pressures show no segmental disease. Pulse volume recordings indicate good overall resting arterial flow. The study shows evidence of possible PAD with normal overall arterial flow at rest. Electronically Signed On 11-18-2024 8:13:53 EDT by ALFREDO VALDEZ M.D. Dictated By: ALFREDO VALDEZ Signed By: 11/18/24 0813 11/18/24 0814 DD/ 1405 TD/TT: Vocational Education Professional: [facility] SEGMENTAL BLOOD PRESSUREOrde red By: Radiologist Radiology on 11-18-2024 [facility] Work Phone: SEGMENTAL BLOOD PRESSUREon 0 11-16-2024 Radiology Study observation (narrative) [facility] XR FOOT LT MIN 3Von 10-14-19 [place] [address] XRay Report Signed Patient: SOFIE ADRIAN MR#: [id number] : 1955 Acct:[id number] Age/Sex: 69 / F ADM Date: 10/13/24 Loc: RAD Attending Dr: Mercedes Cesar D.P.M. Ordering Physician: Mercedes Cesar D.P.M. Date of Service: 10/13/24 Procedure(s): XR foot LT min 3V Accession Number(s): [id number] cc: Rosario Amezquita INSULATION NOZZLEMAN; Mercedes Cesar D.P.M. [place] [address] Patient Name: SOFIE ADRIAN MRN: [facility]:[id number] date: 1955 Sex: F Assigned Patient Location: [facility] Current Patient Location: [facility] Accession/Order Number: [id number] Exam Date: 10/13/2024 12:03 Report Date: 10/13/2024 12:08 At the request of: MERCEDES CESAR DP Procedure: XR foot LT min 3V LEFT FOOT - 3 views CLINICAL DATA: Foot pain. History of fusion at the first toe. COMPARISON: 02/03/2023 Weightbearing AP, lateral and oblique views were obtained. There is redemonstration of fusion at the first metatarsal phalangeal joint with plate and multiple screws. Hardware appears intact and unchanged in position. There is no acute fracture or dislocation. Presumed postoperative deformity and subluxations are again seen at the proximal interphalangeal joints of the second through fifth toes. There is also subtle subluxation at the fifth metatarsal phalangeal joint. There are no significant soft tissue abnormalities. XR/XR foot LT min 3V IMPRESSION: SIMILAR POSTOPERATIVE CHANGES. NO ACUTE BONY FINDINGS. Impression dictated by: Radha Triplett M.D. 10/13/2024 12:08 PM Dictation Location: [place] [address] Electronically authenticated by: [id number] Y Date: 10/13/2024 12:08 Dictated By: Radha Triplett M.D. Signed By: 10/13/24 1210 DD/ 1208 TD/TT: Vocational Education Professional: [facility] Radiology, Radiologi MD susy - 10/13/2024 [place] [address] XRay Report Signed Patient: SOFIE ADRIAN MR#: [id number] : 1955 Acct:[id number] Age/Sex: 69 / F ADM Date: 10/13/24 Loc: RAD Attending Dr: Mercedes Cesar D.P.M. Ordering Physician: Mercedes Cesar D.P.M. Date of Service: 10/13/24 Procedure(s): XR foot LT min 3V Accession Number(s): [id number] cc: Rosario Amezquita INSULATION NOZZLEMAN; Mercedes Cesar D.P.M. The [place] [address] Patient Name: SOFIE ADRIAN MRN: [facility]:[id number] date: 1955 Sex: F Assigned Patient Location: [facility] Current Patient Location: RAD Accession/Order Number: [id number] Exam Date: 10/13/2024 12:03 Report Date: 10/13/2024 12:08 At the request of: MERCEDES CESAR DPJf Procedure: XR foot LT min 3V LEFT FOOT - 3 views CLINICAL DATA: Foot pain. History of fusion at the first toe. COMPARISON: 02/03/2023 Weightbearing AP, lateral and oblique views were obtained. There is redemonstration of fusion at the first metatarsal phalangeal joint with plate and multiple screws. Hardware appears intact and unchanged in position. There is no acute fracture or dislocation. Presumed postoperative deformity and subluxations are again seen at the proximal interphalangeal joints of the second through fifth toes. There is also subtle subluxation at the fifth metatarsal phalangeal joint. There are no significant soft tissue abnormalities. XR/XR foot LT min 3V IMPRESSION: SIMILAR POSTOPERATIVE CHANGES. NO ACUTE BONY FINDINGS. Impression dictated by: Rdaha Triplett M.D. 10/13/2024 12:08 PM Dictation Location: [place] [address] Electronically authenticated by: [id number] Y Date: 10/13/2024 12:08 Dictated By: Radha Triplett M.D. Signed By: 10/13/24 1210 DD/ 1208 TD/TT: Vocational Education Professional: [facility] Radiology Study observation (narrative) [facility] XR FOOT LT MIN 3VOrdered By: Radiologist Radiology on 10-13-2024 [facility] Work Phone: XR FOOT RT MIN 3Von 10-07-19 [place] [address] XRay Report Signed Patient: SOFIE ADRIAN MR#: [id number] : 1955 Acct:[id number] Age/Sex: 69 / F ADM Date: 10/06/24 Loc: RAD Attending Dr: Mercedes Cesar D.P.M. Ordering Physician: Mercedes Cesar D.P.M. Date of Service: 10/06/24 Procedure(s): XR foot RT min 3V Accession Number(s): [id number] cc: Rosario Amezquita INSULATION NOZZLEMAN; Mercedes Cesar D.P.M. [place] [id number] Patient Name: SOFIE ADRIAN MRN: [id number]:[id number] date: 1955 Sex: F Assigned Patient Location: [facility] Current Patient Location: [facility] Accession/Order Number: [id number] Exam Date: 10/06/2024 15:21 Report Date: 10/06/2024 [...] Jr., D.O. 10/06/2024 3:23 PM Dictation Location: [place] [address] Electronically authenticated by: [id number] Y Date: 10/06/2024 15:23 Dictated By: Rigo Cesar M.D. Signed By: 10/06/24 1526 DD/ 1523 TD/TT: Vocational Education Professional: [facility] Radiology Radiologshannan jain MD - 10/06/2024 [place] [address] XRay Report Signed Patient: SOFIE ADRIAN MR#: [id number] : 1955 Acct:[id number] Age/Sex: 69 / F ADM Date: 10/06/24 Loc: RAD Attending Dr: Mercedes Cesar D.P.M. Ordering Physician: Mercedes Cesar D.P.M. Date of Service: 10/06/24 Procedure(s): XR foot RT min 3V Accession Number(s): [id number] cc: Rosario Amezquita NP; Mercedes Cesar D.P.M. The [place] [id number] Patient Name: SOFIE ADRIAN MRN: [facility]:[id number] date: 1955 Sex: F Assigned Patient Location: RAD Current Patient Location: RAD Accession/Order Number: [id number] Exam Date: 10/06/2024 15:21 Report Date: 10/06/2024 15:23 At the request of: MERCEDES CESAR DPM Procedure: XR foot RT min 3V RIGHT [...] COMPLICATION. Impression dictated by: Rigo Cesar Jr., Rishi 10/06/2024 3:23 PM Dictation Location: [place] [address] Electronically authenticated by: [id number] Y Date: 10/06/2024 15:23 Dictated By: Rigo Cesar M.D. Signed By: 10/06/24 1526 DD/ 1523 TD/TT: Vocational Education Professional: [facility] Radiology Study observation (narrative) [facility] XR FOOT RT MIN 3VOrdered By: Radiologist Radiology on 10-06-2024 [facility] Work Phone: XR DEXA AXIAL SKELETONon [place] [id number] XRay Report Signed Patient: SOFIE ADRIAN MR#: [id number] : 1955 Acct:[id number] Age/Sex: 68 / F ADM Date: 05/26/24 Loc: RAD Attending Dr: Rosario mAezquita NP Ordering Physician: Rosario Amezquita NP Date of Service: 05/26/24 Procedure(s): XR DEXA axial skeleton Accession Number(s): [id number] cc: Rosario Amezquita NP [address] [address] Patient Name: SOFIE ADRIAN MRN: [facility]:[id number] date: 1955 Sex: F Assigned Patient Location: [facility] Current Patient Location: [facility] Accession/Order Number: [id number] Exam Date: 05/26/2024 10:00 Report Date: 05/26/2024 [...] prevention and treatment of osteoporosis. Osteoporos Int. 2021;3310):6667-9326. doi: 10.1007/x71071-263-18227-v. Epub 2021Aug 22. Erratum in: Osteoporos Int. 2021Nov 21;: PMID: 86073729; PMCID: [id number]. Electronically authenticated by: ISAIAH ROJAS Date: 05/26/2024 12:26 Dictated By: Isaiah Rojas M.D. Signed By: 05/26/24 1228 DD/ TD/TT: Vocational Education Professional: [facility] Radiology Radiologshannan jain MD - 05/26/2024 [place] [address] XRay Report Signed Patient: SOFIE ADRIAN MR#: [id number] : 1955 Acct:[id number] Age/Sex: 68 / F ADM Date: 05/26/24 Loc: ESDRAS Attending Dr: Rosario Amezquita NP Ordering Physician: Rosario Amezquita NP Date of Service: 05/26/24 Procedure(s): XR DEXA axial skeleton Accession Number(s): [id number] cc: Rosario Amezquita NP The [place] [address] Patient Name: SOFIE ADRIAN MRN: [facility]:[id number] date: 1955 Sex: F Assigned Patient Location: [facility] Current Patient Location: [facility] Accession/Order Number: [id number] Exam Date: 05/26/2024 10:00 Report Date: 05/26/2024 [...] MS, Luisa SL, Wilmer KL, Amy EM, Grgeorio KG, AJ, Mikael ES. The clinician's guide to prevention and treatment of osteoporosis. Osteoporos Int. 2021;33(10):3642-6632. doi: 10.1007/i75879-419-30144-o. Epub 2021Aug 22. Erratum in: Osteoporos Int. 2021Nov 21;: PMID: 16032508; PMCID: [id number]. Electronically authenticated by: ISAIAH ROJAS Date: 05/26/2024 12:26 Dictated By: Isaiah Rojas M.D. Signed By: 05/26/24 1228 DD/ 1226 TD/TT: Vocational Education Professional: [facility] Radiology Study observation (narrative) [facility] XR DEXA AXIAL SKELETONOrdere d By: Radiologist Radiology on 05-26-2024 [facility] Work Phone: No Panel Informationon 05-10 Interpretation and review of laboratory results Normal [facility] Rapid Influenza A Ag Negative Negative, Indeterminate [facility] Rapid Influenza B Ag Negative Negative, Indeterminate [facility] MG MAMM SCREEN 3D KARLOS CADon 07-21-2022 MG MAMM SCREEN 3D KARLOS CAD Patient: SOFIE ADRIAN Exam Date: 07/21/2022 : 1955 Gender:F Ordering : MONIQUE AMEZQUITA [facility] Admission #: [id number] Family : Order #: [id number] CLICK HERE TO VIEW EXAM RADIOLOGY REPORT [...] prostate cancer at age 75. LOCATION: [facility] BREAST COMPOSITION: Scattered areas fibroglandular density. [...] M.D. on 07/21/2022 at 12:20 Normal [facility] Covid-19 PCR (CVDTB)on 01-25 SARS-CoV-2 (COVID-19) RNA BOBO+probe Ql (Unsp spec) Not detected Normal NOT DETECTED [facility] Comment on above: Result Comment: This test is not yet bryson roved or cleared by the [place] FDA. When there are no FDA-approved or cleared tests available, and other criteria are met, FDA can make tests available under an emergency access mechanism called an Emergency Use Authorization (EUA). The EUA for this test is supported by the [place] of Health and Human Service's (HHS's) declaration [...] with SARS-CoV-2. Performed By: #### C VDTB ####[facility] [address] [place], [place] [address]FeDallas Carcamo PAP ACOG PANEL 2: 30 to 65on 01-14-2022 . . Normal [facility] Comment on above: Performed By: #### [id number] ####[facility] [address] [place], [place] [address]VnDallas Carcamo Age Gdln ACOG Testing Comment Normal [facility] Comment on above: Result Comment: <21 or >65 or no age pro vided Performed By: #### [id number] ####[facility] [address] [place] [id number] Carcamo DIAGNOSIS: Comment Normal [facility] Comment on above: Result Comment: NEGATIVE FOR INTRAEPITHE LIAL LESION OR MALIGNANCY. CELLULAR CHANGES ASSOCIATED WITH ATROPHY ARE PRESENT. THIS SPECIMEN WAS RESCREENED PART OF OUR ACCOUNTING INSTRUCTOR PROGRAM. Performed By: #### [id number] ####[facility] [address] [place], [place] [address]Dr. Rashida Carcamo Methodology: Comment [facility] Comment on above: Result Comment: This liquid based ThinPr ep(R) pap test was screened with the use of an image guided system. Performed By: #### [id number] ####[place] [address]DrDallas Carcamo Note: Comment Normal [facility] Comment on above: Result Comment: The Pap smear is a scree sena test designed to aid in the detection of premalignant and malignant conditions of the uterine cervix. It is not a diagnostic procedure and should not be used as the sole means of detecting cervical cancer. Both false-positive and false-negative reports do occur. . Performed By: #### [id number] ####[place] [address]DrDallas Carcamo Performed by: Comment Normal [facility] Comment on above: Result Comment: Sukumar Peraza, Cytotech nologist (ASCP) Performed By: #### [id number] ####[facility] [address] [place], [place] [address]DrDallas Carcamo QC reviewed by: Comment [facility] Comment on above: Result Comment: Neymar Urbano Research Chief Engineer (ASCP) Performed By: #### [id number] ####[facility] [address] [place], [place] [address]DrDallas Carcamo Specimen adequacy: Comment [facility] Comment on above: Result Comment: Satisfactory for evaluat ion. Endocervical component may not be distinguished in cases of atrophy. Performed By: #### 4 [id number] ####[facility] [address] [place], [place] [address]DrDallas Carcamo XR DEXA BONE DENSITYon 01-09 XR [...] ISAIAH ROJAS Date: 2022-01-09 10:53 Normal [facility] CBC W MANUAL DIFFon 01-07-20 22 ATYPICAL LYMPH # Normal [facility] Comment on above: Performed By: #### CBCBONY ####[facility] [address]aw[address] [place] [address]Dr. Kenialan Carcamo ATYPICAL LYMPH % Normal [facility] Comment on above: Performed By: #### CBCBONY ####[facility] Xgentixwqu8190 [place] [address]Dr. Yilan Carcamo BAND # Normal 0.0-0.3 [facility] Comment on above: Performed By: #### CBCBONY ####[facility] Vbbugzdaid4962 [place] [address]Dr. Yilan Carcamo BAND % Normal 0-5 [facility] Comment on above: Performed By: #### CBCBONY ####[facility] Peotzicsuk[address] [place] [address]Dr. Yilan Carcamo BASOM # 0.00 103/ul Normal 0.00-0.10 [facility] Comment on above: Performed By: #### CBCBONY ####[facility] Zbrngsrpai4166 [place] [address]Dr. Yilan Carcamo BASOM % 0.0 % Critically low 0.2-2.0 [facility] Comment on above: Performed By: #### CBCBONY ####[facility] Udqyvwnnek40[address] [place] [address]Dr. Yilan Carcamo BLAST # Normal [facility] Comment on above: Performed By: #### CBCBONY ####[facility] Kdzdmqcibm4978 [place] [address]Dr. Rashida Carcamo BLAST % Normal [facility] Comment on above: Performed By: #### CBCBONY ####[facility] Wqjenbiiib5628 [place] [address]Dr. Rashida Carcamo CORRECTED WBC Normal 4.0-11.0 [facility] Comment on above: Performed By: #### CBCBONY ####[facility] Ljhqlfvigh8542 [place] [address]Dr. Rashida Carcamo EOS # 0.00 103/ul Normal 0.00-0.70 [facility] Comment on above: Performed By: #### CBCBONY ####[facility] Ehamfiarxo[address] [place] [address]Dr. Rashida Carcamo EOS% 0.0 % Critically low 0.9-7.0 [facility] Comment on above: Performed By: #### CBCBONY ####[facility] Pvehcvvezx3609 [place] [address]Dr. Rashida Carcamo HCT 37.0 % Normal 36.0-48.0 [facility] Comment on above: Performed By: #### JOHN ####[facility] Kbbxnaummn[address] [place] [address]Dr. Rashida Carcamo HGB 12.0 g/dl Normal 12.0-16.0 [facility] Comment on above: Performed By: #### CBCBONY ####[facility] Brwatushee[address] [place] [address]Dr. Rashida Carcamo LYMPHM # 0.70 103/ul Critically low 1.20-3.80 [facility] Comment on above: Performed By: #### CBCBONY ####[facility] Bglqaxlbtp6895 [place] [address]Dr. Rashida Carcamo LYMPHM% 25.0 % Normal 20.5-60.0 [facility] Comment on above: Performed By: #### CBCBONY ####[facility] Otgszwxehl4431 [place] [address]Dr. Rashida Carcamo MCH 30.4 pg Normal 26.7-34.0 [facility] Comment on above: Performed By: #### CBCBONY ####[facility] Rewfzzoghg[address]239 [place] [id number]. Rashida Carcamo MCHC 32.4 g/dl Normal 29.9-35.2 [facility] Comment on above: Performed By: #### CBCMAN ####[facility] Cimyiboiuz7585 [place] [address]Dr. Rashida Carcamo MCV 93.7 fL Normal 81.0-99.0 [facility] Comment on above: Performed By: #### CBCBONY ####[facility] Ntliqptloz6419 [place] [address]Dr. Rashida Carcamo METAMYELOCYTE # Normal [facility] Comment on above: Performed By: #### CBCBONY ####[facility] Wlzgndtugf4060 [place] [address]Dr. Rashida Carcamo METAMYELOCYTE % Normal [facility] Comment on above: Performed By: #### CBCBONY ####[facility] Htqjxgvaqj0115 [place] [address]Dr. Rashida Carcamo MONOM# 0.22 103/ul Critically low 0.30-0.80 [facility] Comment on above: Performed By: #### CBCBONY ####[facility] Ulvuibcqhn5309 [place] [address]Dr. Rashida Cracamo MONOM% 8.0 % Normal 1.7-12.0 [facility] Comment on above: Performed By: #### CBCBONY ####[facility] Vlkfxxzagd1099 [place] [address]Dr. Rashida Carcamo MPV 10.8 fL Normal 9.5-13.5 [facility] Comment on above: Performed By: #### CBCBONY ####[facility] Jkuvbvanyh9108 [place] [address]Dr. Rashida Carcamo MYELOCYTE # Normal [facility] Comment on above: Performed By: #### CBCBONY ####[facility] Hqwuntlgue4320 [place] [address]Dr. Rashida Carcamo MYELOCYTE % Normal [facility] Comment on above: Performed By: #### CBCBONY ####[facility] Vnxmqbybhk8925 [place] [address]Dr. Rashida Carcamo NRBC Normal [facility] Comment on above: Performed By: #### CBCBONY ####[facility] Arerfqglgk0098 [place] [address]Dr. Rashida Carcamo PLT 154 103/ul Normal 150-450 [facility] Comment on above: Performed By: #### CBCBONY ####[facility] Wwpijzyfiq9662 [place] [address]Dr. Rashida Carcamo RBC 3.95 106/ul Critically low 4.20-5.40 [facility] Comment on above: Performed By: #### CBCBONY ####[facility] Vmdreuzrom0153 [place] [address]Dr. Rashida Carcamo RDW 13.2 % Normal 11.0-15.0 [facility] Comment on above: Performed By: #### CBCBONY ####[facility] Igwgucttbs0902 [place] [address]Dr. Rashida Carcamo SEG # 1.88 103/ul Normal 1.40-6.50 [facility] Comment on above: Performed By: #### CBCBONY ####[facility] Nfvoicyqrb4087 [place] [address]Dr. Rashida Carcamo SEG % 67.0 % Normal 43.0-75.0 [facility] Comment on above: Performed By: #### CBCBONY ####[facility] Mkbfvbdoby8607 [place] [address]Dr. Rashida Carcamo WBC 2.8 103/ul Critically low 4.0-11.0 [facility] Comment on above: Performed By: #### CBCBONY ####[facility] Qaukbzxbsw7932 [place] [address]Dr. Rashida Carcamo CBC AUTO DIFFon 12-03-2021 BASO # 0.1 103/ul Normal 0.0-0.1 [facility] Comment on above: Performed By: #### CBC ####[facility] Vsgljuluuu2231 [place] [address]Dr. Rashida Carcamo Basophils/100 WBC (Bld) 1.9 % Normal 0.2-2.0 [facility] Comment on above: Performed By: #### CBC ####[facility] Ddcjvjismw5859 [place] [address]Dr. Keniaflory Carcamo EO # 0.2 103/ul Normal 0.0-0.7 [facility] Comment on above: Performed By: #### CBC ####[facility] Tktaigfrog4291 [place] [address]Dr. Keniaflory Carcamo Eosinophils/100 WBC (Bld) 5.6 % Normal 0.9-7.0 [facility] Comment on above: Performed By: #### CBC ####[facility] Zinyimctiw9230 [place] [address]Dr. Keniaflory Carcamo Erythrocyte distribution width (RBC) [Ratio] 13.6 % Normal 11.0-15.0 [facility] Comment on above: Performed By: #### CBC ####[facility] Lcrsiekfmc7544 [place] [address]Dr. Rashida Carcamo Hematocrit (Bld) [Volume fraction] 38.0 % Normal 36.0-48.0 [facility] Comment on above: Performed By: #### CBC ####[facility] Klpnfgxcdb8948 [place] [address]Dr. Rashida Carcamo Hemoglobin (Bld) [Mass/Vol] 11.7 g/dL Critically low 12.0-16.0 [facility] Comment on above: Performed By: #### CBC ####[facility] Kfukqxlrtq2180 [place] [address]Dr. Rashida Carcamo IG # 0.00 10e3/ul Normal 0.00-0.03 [facility] Comment on above: Performed By: #### CBC ####[facility] Odnlswskmz3549 [place] [address]Dr. Rashida Carcamo IG % 0.0 % Normal 0.0-0.5 [facility] Comment on above: Performed By: #### CBC ####[facility] Czbznzbmxy9647 [place] [address]Dr. Rashida Carcamo LYMPH # 0.8 103/ul Critically low 1.2-3.8 [facility] Comment on above: Performed By: #### CBC ####[facility] Pzzueoqpss2629 [place] [address]Dr. Rashida Carcamo Lymphocytes/100 WBC (Bld) 29.3 % Normal 20.5-60.0 [facility] Comment on above: Performed By: #### CBC ####[facility] Kqlftnovkd8302 [place] [address]Dr. Rashida Carcamo MANUAL DIFF REQ NO Normal [facility] Comment on above: Performed By: #### CBC ####[facility] Vaqqatyddw4675 [place] [address]Dr. Rashida Carcamo MCH (RBC) [Entitic mass] 29.7 pg Normal 26.7-34.0 [facility] Comment on above: Performed By: #### CBC ####[facility] Qiwuctdcbm8249 [place] [address]Dr. Rashida Carcamo MCHC (RBC) [Mass/Vol] 30.8 g/dL Normal 29.9-35.2 [facility] Comment on above: Performed By: #### CBC ####[facility] Bnxhenxiak6685 [place] [address]Dr. Rashida Carcamo MCV (RBC) [Entitic vol] 96.4 fL Normal 81.0-99.0 [facility] Comment on above: Performed By: #### CBC ####[facility] Ktslksvzbd3395 [place] [address]Dr. Keniaflory Carcamo MONO # 0.2 103/ul Critically low 0.3-0.8 [facility] Comment on above: Performed By: #### CBC ####[facility] Vkmxlsyupz9480 [place] [address]Dr. Rashida Carcamo Monocytes/100 WBC (Bld) 7.5 % Normal 1.7-12.0 [facility] Comment on above: Performed By: #### CBC ####[facility] Dzngrqbzwg9656 [place] [address]Dr. Rashida Carcamo NEUT # 1.5 103/ul Normal 1.4-6.5 [facility] Comment on above: Performed By: #### CBC ####[facility] Hxplodlhyk0180 [place] [address]Dr. Rashida Carcamo Neutrophils/100 WBC (Bld) 55.7 % Normal 43.0-75.0 [facility] Comment on above: Performed By: #### CBC ####[facility] Drjqwqlodw4647 [place] [address]Dr. Rashida Carcamo Platelet mean volume (Bld) [Entitic vol] 10.6 fL Normal 9.5-13.5 [facility] Comment on above: Performed By: #### CBC ####[facility] Ysizrssoal4423 [place] [address]Dr. Rashida Carcamo PLT 165 103/ul Normal 150-450 [facility] Comment on above: Performed By: #### CBC ####[facility] Hvdzdguwew7905 [place] [address]Dr. Rashida Carcamo RBC 3.94 106/ul Critically low 4.20-5.40 [facility] Comment on above: Performed By: #### CBC ####[facility] Rjiezljnon5840 [place] [address]Dr. Rashida Carcamo WBC 2.7 103/ul Critically low 4.0-11.0 [facility] Comment on above: Performed By: #### CBC ####[facility] Uodphscjcz2795 [place] [address]Dr. Rashida Carcamo IRONon 12-03-2021 Iron [Mass/Vol] 85.0 ug/dL Normal 50.0-170.0 [facility] Comment on above: Performed By: #### IRON ####[facility] Akucddftgn7944 [place], [place] [address]PwDallas Carcamo Basic metabolic 2000 panelon 10-22-2021 Anion gap [Moles/Vol] 16 mmol/L Normal 9-18 [facility] Comment on above: Order Comment: Specimen Type: BLOOD SPEC IMEN Ordering Facility: [facility] Address: [address] [place] [address] Performed By: #### 2 777-1, , 91190-3 #### [facility] CLIA [id number] [address] [place] [address] [place] Calcium [Mass/Vol] 9.5 mg/dL Normal 8.5-10.2 [facility] Comment on above: Order Comment: Specimen Type: BLOOD SPEC IMEN Ordering Facility: [facility] Address: [address] [place] [address] Performed By: #### 2 777-1, , 83489-0 #### [facility] CLIA [id number] [address] [place] [address] [place] Chloride [Moles/Vol] 100 mmol/L Normal 97-105 [facility] Comment on above: Order Comment: Specimen Type: BLOOD SPEC IMEN Ordering Facility: [facility] Address: [address] [place], [place] [address] Performed By: #### 2 777-1, , 99816-4 #### [facility] CLIA [id number] [address] [place] [address] [place] CO2 [Moles/Vol] 29 mmol/L Normal 22-30 [facility] Comment on above: Order Comment: Specimen Type: BLOOD SPEC IMEN Ordering Facility: [facility] Address: [address] [place], [place] [address] Performed By: #### 2 777-1, , 75318-5 #### [facility] CLIA [id number] [address] [place] [address] [place] Creatinine [Mass/Vol] 0.58 mg/dL Normal 0.58-0.96 [facility] Comment on above: Order Comment: Specimen Type: BLOOD SPEC IMEN Ordering Facility: [facility] Address: [address] [place], [place] [address] Performed By: #### 2 777-1, , 12904-5 #### [facility] CLIA [id number] [address] [place] [address] [place] ESTIMATED GLOMERULAR FILTRATION RATE 100 mL/min/1.73m??? Normal >=60 [facility] Comment on above: Order Comment: Specimen Type: BLOOD SPEC IMEN Ordering Facility: [facility] Address: [address] [place] [address] Result Comment: Humaira mated Glomerular Filtration Rate [...] GFR. Performed By: #### 2 777-1, , 18410-4 #### [facility] CLIA [id number] [address] [place] [address] [place] Glucose [Mass/Vol] 90 mg/dL Normal 74-99 [facility] Comment on above: Order Comment: Specimen Type: BLOOD SPEC IMEN Ordering Facility: [facility] Address: [address] [place], [place] [address] Result Comment: The [place] [employer] (ADA) provides guidance for cutoff [...] Standards of Medical Care in Diabetes 2016, [place] [employer]. Diabetes Care. 2016.39(Suppl 1). Performed By: #### 2 777-1, , 79984-4 #### [facility] CLIA [id number] [address] [place] [address] [place] Potassium [Moles/Vol] 3.2 mmol/L Low 3.7-5.1 [facility] Comment on above: Order Comment: Specimen Type: BLOOD SPEC IMEN Ordering Facility: [facility] Address: [address] [place], [place] [address] Performed By: #### 2 777-1, , 53736-1 #### [facility] CLIA [id number] [address] [place] [address] [place] Sodium [Moles/Vol] 145 mmol/L High 136-144 [facility] Comment on above: Order Comment: Specimen Type: BLOOD SPEC IMEN Ordering Facility: [facility] Address: [address] [place], [place] [address] Performed By: #### 2 777-1, , 01720-9 #### [facility] CLIA [id number] [address] [place] [address] [place] Urea nitrogen [Mass/Vol] 6 mg/dL Low 7-21 [facility] Comment on above: Order Comment: Specimen Type: BLOOD SPEC IMEN Ordering Facility: [facility] Address: [address] [place] [phone] Performed By: #### 2 777-1, , 78875-6 #### [facility] CLIA [id number] [address] [place] [address] [place] CBC panel Auto (Bld)on 10-22 Erythrocyte distribution width (RBC) [Ratio] 13.6 % Normal 11.5-15.0 [facility] Comment on above: Order Comment: Specimen Type: BLOOD SPEC IMEN Ordering Facility: [facility] Address: [address] [place], [place] [address] Performed By: #### 5 8410-2 #### [facility] CLIA [id number] [address] [place] [address] [place] Hematocrit (Bld) [Volume fraction] 40.4 % Normal 36.0-46.0 [facility] Comment on above: Order Comment: Specimen Type: BLOOD SPEC IMEN Ordering Facility: [facility] Address: [address] [place], [place] [address] Performed By: #### 5 8410-2 #### [facility] CLIA [id number] [address] [place] [address] [place] Hemoglobin (Bld) [Mass/Vol] 12.9 g/dL Normal 11.5-15.5 [facility] Comment on above: Order Comment: Specimen Type: BLOOD SPEC IMEN Ordering Facility: [facility] Address: [address] [place], [place] [address] Performed By: #### 5 8410-2 #### [facility] CLIA [id number] [address] [place] [address] [place] MCH (RBC) [Entitic mass] 28.7 pg Normal 26.0-34.0 [facility] Comment on above: Order Comment: Specimen Type: BLOOD SPEC IMEN Ordering Facility: [facility] Address: [address] [place], [place] [address] Performed By: #### 5 8410-2 #### [facility] CLIA [id number] [address] [place] [address] [place] MCHC (RBC) [Mass/Vol] 31.9 g/dL Normal 30.5-36.0 [facility] Comment on above: Order Comment: Specimen Type: BLOOD SPEC IMEN Ordering Facility: [facility] Address: [address] [place], [place] [address] Performed By: #### 5 8410-2 #### [facility] CLIA [id number] [address] [place] [place] [place], [place] [address] [place] MCV (RBC) [Entitic vol] 90.0 fL Normal 80.0-100.0 [facility] Comment on above: Order Comment: Specimen Type: BLOOD SPEC IMEN Ordering Facility: [facility] Address: [address] [place], [place] [address] Performed By: #### 5 8410-2 #### [facility] CLIA [id number] [address] [place] [address] [place] Nucleated RBC (Bld) [#/Vol] 10*3/uL Normal <0.01 [facility] Comment on above: Order Comment: Specimen Type: BLOOD SPEC IMEN Ordering Facility: [facility] Address: [address] [place], [place] [address] Performed By: #### 5 8410-2 #### [facility] CLIA [id number] [address] [place] [address] [place] Platelet mean volume (Bld) [Entitic vol] 10.8 fL Normal 9.0-12.7 [facility] Comment on above: Order Comment: Specimen Type: BLOOD SPEC IMEN Ordering Facility: [facility] Address: [address] [place] [phone] Performed By: #### 5 8410-2 #### [facility] CLIA [id number] [address] [place] [address] [place] Platelets (Bld) [#/Vol] 155 10*3/uL Normal 150-400 [facility] Comment on above: Order Comment: Specimen Type: BLOOD SPEC IMEN Ordering Facility: [facility] Address: [address] [place] [address] Performed By: #### 5 8410-2 #### [facility] CLIA [id number] [address] [place] [address] [place] RBC (Bld) [#/Vol] 4.49 10*6/uL Normal 3.90-5.20 [facility] Comment on above: Order Comment: Specimen Type: BLOOD SPEC IMEN Ordering Facility: [facility] Address: [address] [place] [address] Performed By: #### 5 8410-2 #### [facility] CLIA [id number] [address] [place] [address] [place] WBC (Bld) [#/Vol] 2.98 10*3/uL Low 3.70-11.00 [facility] Comment on above: Order Comment: Specimen Type: BLOOD SPEC IMEN Ordering Facility: [facility] Address: [address] [place] [address] Performed By: #### 5 8410-2 #### [facility] CLIA [id number] [address] [place] [address] [place] CNDSon 10-22-2021 DS HNO ID: [id number] Author: Joceline Liang MD Service: General Surgery [...] has been waiting to be transferred to [facility]. [facility] [...] was tolerating PO. She was advanced to [facility] and discharged home later that day. [...] PO QD SIGNATURE: Joceline Liang MD PAGER: [phone] DATE: October 22, 2021 TIME: 11:22 AM Normal [facility] Magnesium SerPl-mCncon 10-22 Magnesium [Mass/Vol] 1.6 mg/dL Low 1.7-2.3 [facility] Comment on above: Order Comment: Specimen Type: BLOOD SPEC IMEN Ordering Facility: [facility] Address: [address] [place] [phone] Performed By: #### 2 430-1, 54071-4, 31751-0 #### [facility] CLIA [id number] [address] [place] [address] [place] Phosphate SerPl-mCncon 10-22 Phosphate [Mass/Vol] 3.0 mg/dL Normal 2.7-4.8 [facility] Comment on above: Order Comment: Specimen Type: BLOOD SPEC IMEN Ordering Facility: [facility] Address: [address] [place], [place] [address] Performed By: #### 2 777-1, , #### [facility] CLIA [id number] [address] [place] [address] [place] VDUVLSon 10-21-2021 VDUVLS Non-Invasive Vascula r Laboratory [facility] J35 Lower Extremity Venous Duplex Bilateral/Complete Date [...] physician: Pavithra Barker MD, NOELLE, RVT Final [id number] oDynamicsSISUID See Link below for Image Normal [facility] XR SMALL BOWEL SERIESon 09-26 XR [...] small bowel. IMPRESSION: RESOLVING SMALL BOWEL OBSTRUCTION. Vocational Education Professional: [facility] Transcribe Date/Time: Oct 21 2021 2:44P Dictated by : JESSICA ADRIAN MD This examination was interpreted and the report reviewed and electronically signed by: JESSICA ADRIAN MD on Oct 21 2021 2:45PM EST [id number] Normal [facility] CBC panel Auto (Bld)on 10-20 Erythrocyte distribution width (RBC) [Ratio] 14.6 % Normal 11.5-15.0 [facility] Comment on above: Order Comment: Specimen Type: BLOOD SPEC IMEN Ordering Facility: [facility] Address: [address] [place], [place] [address] Performed By: #### 5 8410-2 #### [facility] [place] [id number] [address] [place] [address] [place] Hematocrit (Bld) [Volume fraction] 33.4 % Low 36.0-46.0 [facility] Comment on above: Order Comment: Specimen Type: BLOOD SPEC IMEN Ordering Facility: [facility] Address: [address] [place], [place] [address] Performed By: #### 5 8410-2 #### [facility] IA [id number] [address] [place] [address] [place] Hemoglobin (Bld) [Mass/Vol] 10.4 g/dL Low 11.5-15.5 [facility] Comment on above: Order Comment: Specimen Type: BLOOD SPEC IMEN Ordering Facility: [facility] Address: [address] [place], [place] [address] Performed By: #### 5 8410-2 #### [facility] CLIA [id number] [address] [place] [address] [place] MCH (RBC) [Entitic mass] 29.1 pg Normal 26.0-34.0 [facility] Comment on above: Order Comment: Specimen Type: BLOOD SPEC IMEN Ordering Facility: [facility] Address: [address] [place], [place] [address] Performed By: #### 5 8410-2 #### [facility] CLIA [id number] [address] [place] [address] [place] MCHC (RBC) [Mass/Vol] 31.1 g/dL Normal 30.5-36.0 [facility] Comment on above: Order Comment: Specimen Type: BLOOD SPEC IMEN Ordering Facility: [facility] Address: [address] [place], [place] [address] Performed By: #### 5 8410-2 #### [facility] CLIA [id number] [address] [place] [address] [place] MCV (RBC) [Entitic vol] 93.3 fL Normal 80.0-100.0 [facility] Comment on above: Order Comment: Specimen Type: BLOOD SPEC IMEN Ordering Facility: [facility] Address: [address] [place] [address] Performed By: #### 5 8410-2 #### [facility] CLIA [id number] [address] [place] [address] [place] Nucleated RBC (Bld) [#/Vol] 10*3/uL Normal <0.01 [facility] Comment on above: Order Comment: Specimen Type: BLOOD SPEC IMEN Ordering Facility: [facility] Address: [address] [place], [place] [address] Performed By: #### 5 8410-2 #### [facility] CLIA [id number] [address] [place] [address] [place] Platelet mean volume (Bld) [Entitic vol] 10.7 fL Normal 9.0-12.7 [facility] Comment on above: Order Comment: Specimen Type: BLOOD SPEC IMEN Ordering Facility: [facility] Address: [address] [place] [address] Performed By: #### 5 8410-2 #### [facility] CLIA [id number] [address] [place] [address] [place] Platelets (Bld) [#/Vol] 128 10*3/uL Low 150-400 [facility] Comment on above: Order Comment: Specimen Type: BLOOD SPEC IMEN Ordering Facility: [facility] Address: [address] [place] [address] Performed By: #### 5 8410-2 #### [facility] CLIA [id number] [address] [place] [address] [place] RBC (Bld) [#/Vol] 3.58 10*6/uL Low 3.90-5.20 [facility] Comment on above: Order Comment: Specimen Type: BLOOD SPEC IMEN Ordering Facility: [facility] Address: [address] [place] [address] Performed By: #### 5 8410-2 #### [facility] CLIA [id number] [address] [place] [address] STATES OF [facility] WBC (Bld) [#/Vol] 2.96 10*3/uL Low 3.70-11.00 [facility] Comment on above: Order Comment: Specimen Type: BLOOD SPEC IMEN Ordering Facility: [facility] Address: [address] [place] [address] Performed By: #### 5 8410-2 #### [facility] CLIA [id number] [address] [place] [address] [facility] Comprehensive metabolic 2000 panelon 10-20-2021 Albumin [Mass/Vol] 3.7 g/dL Low 3.9-4.9 [facility] Comment on above: Order Comment: Specimen Type: BLOOD SPEC IMEN Ordering Facility: [facility] Address: [address] [place], [place] [address] Performed By: #### 2 777-1, , 66570-2 #### [facility] CLIA [id number] [address] [place] [address] [place] ALP [Catalytic activity/Vol] 48 U/L Normal 34-123 [facility] Comment on above: Order Comment: Specimen Type: BLOOD SPEC IMEN Ordering Facility: [facility] Address: [address] [place], [place] [address] Performed By: #### 2 777-1, , 80548-5 #### [facility] CLIA [id number] [address] [place] [address] [place] ALT [Catalytic activity/Vol] 11 U/L Normal 7-38 [facility] Comment on above: Order Comment: Specimen Type: BLOOD SPEC IMEN Ordering Facility: [facility] Address: [address] [place] [phone] Performed By: #### 2 777-1, , 10079-3 #### [facility] CLIA [id number] [address] [place] [address] [place] Anion gap [Moles/Vol] 14 mmol/L Normal 9-18 [facility] Comment on above: Order Comment: Specimen Type: BLOOD SPEC IMEN Ordering Facility: [facility] Address: [address] [place], [place] [address] Performed By: #### 2 777-1, , #### [facility] CLIA [id number] [address] [place] [address] [place] AST [Catalytic activity/Vol] 16 U/L Normal 13-35 [facility] Comment on above: Order Comment: Specimen Type: BLOOD SPEC IMEN Ordering Facility: [facility] Address: [address] [place], [place] [address] Performed By: #### 2 777-1, , #### [facility] CLIA [id number] [address] [place] [address] [place] Bilirubin [Mass/Vol] 0.6 mg/dL Normal 0.2-1.3 [facility] Comment on above: Order Comment: Specimen Type: BLOOD SPEC IMEN Ordering Facility: [facility] Address: [address] [place] [address] Performed By: #### 2 777-1, , 19261-0 #### [facility] CLIA [id number] [address] [place], [place] [address] [place] Calcium [Mass/Vol] 8.8 mg/dL Normal 8.5-10.2 [facility] Comment on above: Order Comment: Specimen Type: BLOOD SPEC IMEN Ordering Facility: [facility] Address: [address] [place], [place] [address] Performed By: #### 2 777-1, , #### [facility] CLIA [id number] [address] [place] [address] [place] Chloride [Moles/Vol] 104 mmol/L Normal 97-105 [facility] Comment on above: Order Comment: Specimen Type: BLOOD SPEC IMEN Ordering Facility: [facility] Address: [address] [place], [place] [address] Performed By: #### 2 777-1, , #### [facility] CLIA [id number] [address] [place] [address] [place] CO2 [Moles/Vol] 24 mmol/L Normal 22-30 [facility] Comment on above: Order Comment: Specimen Type: BLOOD SPEC IMEN Ordering Facility: [facility] Address: [address] [place], [place] [address] Performed By: #### 2 777-1, , #### [facility] CLIA [id number] [address] [place] [address] [place] Creatinine [Mass/Vol] 0.56 mg/dL Low 0.58-0.96 [facility] Comment on above: Order Comment: Specimen Type: BLOOD SPEC IMEN Ordering Facility: [facility] Address: [address] [place], [place] [address] Performed By: #### 2 777-1, , #### [facility] CLIA [id number] [address] [place] [address] [place] ESTIMATED GLOMERULAR FILTRATION RATE 101 mL/min/1.73m??? Normal >=60 [facility] Comment on above: Order Comment: Specimen Type: BLOOD SPEC IMEN Ordering Facility: [facility] Address: [address] [place] [address] Result Comment: Humaira mated Glomerular Filtration Rate [...] actual GFR. Performed By: #### 2 777-1, 53220-6, 75436-4 #### [facility] CLIA [id number] [address] [place] [address] [place] Glucose [Mass/Vol] 100 mg/dL High 74-99 [facility] Comment on above: Order Comment: Specimen Type: BLOOD SPEC IMEN Ordering Facility: [facility] Address: [address] [place] [phone] Result Comment: The [place] [employer] (ADA) provides guidance for cutoff [...] Standards of Medical Care in Diabetes 2016, [place] [employer]. Diabetes Care. 2016.39(Suppl 1). Performed By: #### 2 777-1, , 71904-0 #### [facility] CLIA [id number] [address] [place], [place] [address] [place] Potassium [Moles/Vol] 2.7 mmol/L Low 3.7-5.1 [facility] Comment on above: Order Comment: Specimen Type: BLOOD SPEC IMEN Ordering Facility: [facility] Address: [address] [place], [place] [address] Performed By: #### 2 777-1, , 47577-5 #### [facility] CLIA [id number] [address] [place] [address] [place] Protein [Mass/Vol] 6.0 g/dL Low 6.3-8.0 [facility] Comment on above: Order Comment: Specimen Type: BLOOD SPEC IMEN Ordering Facility: [facility] Address: [address] [place] [address] Performed By: #### 2 777-1, , 01880-6 #### [facility] CLIA [id number] [address] [place] [address] [place] Sodium [Moles/Vol] 142 mmol/L Normal 136-144 [facility] Comment on above: Order Comment: Specimen Type: BLOOD SPEC IMEN Ordering Facility: [facility] Address: [address] [place] [address] Performed By: #### 2 777-1, , 06500-7 #### [facility] CLIA [id number] [address] [place] [address] [place] Urea nitrogen [Mass/Vol] 12 mg/dL Normal 7-21 [facility] Comment on above: Order Comment: Specimen Type: BLOOD SPEC IMEN Ordering Facility: [facility] Address: [address] [place] [address] Performed By: #### 2 777-1, , 82985-9 #### [facility] CLIA [id number] [address] [place] [address] [place] Lactate (Bld) [Moles/Vol]on 10-20-2021 Lactate [Moles/Vol] 0.5 mmol/L Normal 0.5-2.2 [facility] Comment on above: Order Comment: Specimen Type: BLOOD SPEC IMEN Ordering Facility: [facility] Address: [address] [place], [place] [address] Performed By: #### 2 777-1, 33917-3, 43884-7 #### [facility] CLIA [id number] [address] [place] [address] [place] [facility] Magnesium SerPl-mCncon 10-20 Magnesium [Mass/Vol] 2.0 mg/dL Normal 1.7-2.3 [facility] Comment on above: Order Comment: Specimen Type: BLOOD SPEC IMEN Ordering Facility: [facility] Address: [address] [place], [place] [address] Performed By: #### 2 777-1, 77139-3, 29888-6 #### [facility] CLIA [id number] [address] [place] [address] [place] PT panel Coag (PPP)on 2021 INR Coag (PPP) [Relative time] 1.1 {INR} Normal 0.9-1.3 [facility] Comment on above: Order Comment: Specimen Type: BLOOD SPEC IMEN Ordering Facility: [facility] Address: [address] [place], [place] [address] Result Comment: Rosalind min K Antagonist (VKA) Therapeutic Range: INR 2 to 3 (Target INR of 2.5) Note: For patients treated with VKA drugs, such as warfarin, the [place] [employer] 2012 Guideline recommends [...] Chest 2012, 141:7S-47S Nadeen RA, et al. JACC 2017, 70: 252-289 Performed By: #### 2 777-1, , 17282-7 #### [facility] CLIA [id number] [address] [place] [address] [place] PT Coag (PPP) [Time] 11.9 s Normal 9.7-13.0 [facility] Comment on above: Order Comment: Specimen Type: BLOOD SPEC IMEN Ordering Facility: [facility] Address: [address] [place] [address] Performed By: #### 2 777-1, , 23803-2 #### [facility] CLIA [id number] [address] [place] [address] [place] Phosphate SerPl-mCncon 10-20 Phosphate [Mass/Vol] 2.0 mg/dL Low 2.7-4.8 [facility] Comment on above: Order Comment: Specimen Type: BLOOD SPEC IMEN Ordering Facility: [facility] Address: [address] [place] [address] Performed By: #### 2 777-1, , #### [facility] CLIA [id number] [address] [place] [address] [place] SARS-CoV-2 RNA Resp Ql BOBO+p robeon 10-20-2021 SARS-CoV-2 (COVID-19) RNA BOBO+probe Ql (Resp) COVID 19 RESULT: SARS-CoV-2 (Agent of COVID-19) Not Detected by RT-PCR or equivalent method. This test has been authorized by FDA under an Emergency Use Authorization (EUA). Normal [facility] Comment on above: Performed By: #### 2777-1, , 2431 1-2 #### [facility] CLIA [id number] [address] [place] [address] [place] TYPE + SCREENon 10-20-2021 ABO A Normal [facility] Comment on above: Order Comment: Specimen Type: BLOOD SPEC IMEN Ordering Facility: [facility] Address: [address] [place], [place] [address] Performed By: #### T SCR #### [facility] CLIA [id number] [address] [place] HISTORICAL AB SCR STATUS Negative Normal [facility] Comment on above: Order Comment: Specimen Type: BLOOD SPEC IMEN Ordering Facility: [facility] Address: [address] [place], [place] [address] Performed By: #### T SCR #### [facility] CLIA [id number] [address] [place] [address] [place] Rh Nom (Bld) Negative Normal [facility] Comment on above: Order Comment: Specimen Type: BLOOD SPEC IMEN Ordering Facility: [facility] Address: [address] [place], [place] [address] Performed By: #### T SCR #### [facility] CLIA [id number] [address] [place] [address] [place] TYPE AND SCREEN EXPIRATION 10/22/2021 23:59 Normal [facility] Comment on above: Order Comment: Specimen Type: BLOOD SPEC IMEN Ordering Facility: [facility] Address: [address] [place], [place] [address] Performed By: #### T SCR #### [facility] CLIA [id number] [address] [place] [address] [place] aPTT PPPon 10-20-2021 aPTT Coag (PPP) [Time] 26.6 s Normal 23.0-32.4 [facility] Comment on above: Order Comment: Specimen Type: BLOOD SPEC IMEN Ordering Facility: [facility] Address: [address] [place], [place] [address] Performed By: #### 2 777-1, 61495-0, 85546-6 #### [facility] CLIA [id number] [address] [place] [id number] [place] HISTORY PHYSICALon HISTORY PHYSICAL HNO ID: [id number] Author: [place]ia Gilmore MD Service: General Surgery [...] has been waiting to be transferred to [facility]. [facility] [...] mg tablet, (more content not included)... Normal [facility] XR ABDOMEN 1V SUPINEon 10-19 XR [...] Degenerative changes and dextroscoliosis of the spine. Vocational Education Professional: GIO Transcribe Date/Time: Oct 19 2021 7:02P Dictated by : JAN HOLLIDAY MD This examination was interpreted and the report reviewed and electronically signed by: JAN HOLLIDAY MD on Oct 19 2021 7:04PM EST [id number] Normal [facility] AMYLASEon 10-18-2021 Amylase [Catalytic activity/Vol] 46 U/L Normal 25-115 [facility] Comment on above: Performed By: #### DAVID, CMADM, LIPA, CMP #### [facility] [address] [place] [address] [address] Rashida Carcamo CARDIAC JESSICA ADMITon 022 CK [Catalytic activity/Vol] 155 U/L Normal 26-192 [facility] Comment on above: Performed By: #### DAVID, CMADM, LIPA, CMP #### [facility] [address] [place] [address] Dr. Rashida Carcamo CK.MB [Mass/Vol] 0.64 ng/mL Normal <=3.60 [facility] Comment on above: Performed By: #### DAVID, CMADM, LIPA, CMP #### [facility] [address] [address] [address] Rashida Carcamo HSTROP <4.0 Normal 4.0-51.3 [facility] Comment on above: Result Comment: CUT-OFF POINTS HAVE BEEN ESTABLISHED BASED ON THE FOURTH UNIVERSAL DEFINITIONS OF MYOCARDIAL INFARCTION. THE UPPER REFERENCE LIMIT (URL) OF TROPONIN, DEFINED THE 99TH PERCENTILE OF cTnI DISTRIBUTION IN A REFERENCE POPULATION, HAS BEEN CONFIRMED THE DECISION THRESHOLD FOR TN DIAGNOSIS. Performed By: #### A MY, CMADM, LIPA, CMP #### [facility] [address] [place] [address] Dr. Rashida Carcamo ADRIANA 49 ng/mL Normal 9-82 [facility] Comment on above: Performed By: #### DAVID, CMADM, LIPA, CMP #### [facility] [address] [address] [address] Rashida Carcamo CBC W MANUAL DIFFon 10-19-19 22 ATYPICAL LYMPH # Normal [facility] Comment on above: Performed By: #### CBCMAN #### [facility] [address] [place] [address] Dr. Rashida Carcamo ATYPICAL LYMPH % Normal [facility] Comment on above: Performed By: #### CBCBONY #### [facility] [address] [place] [address] Dr. Rashida Carcamo BAND # 0.1 103/ul Normal 0.0-0.3 [facility] Comment on above: Performed By: #### CBCBONY #### [facility] [address] [place] [address] Dr. Rashida Carcamo BAND % 1 % Normal 0-5 [facility] Comment on above: Performed By: #### CBCBONY #### [facility] [address] [place] [address] Dr. Rashida Carcamo BASOM # 0.00 103/ul Normal 0.00-0.10 [facility] Comment on above: Performed By: #### JOHN #### [facility] [address] [place] [address] Dr. Rashida Carcamo BASOM % 0.0 % Critically low 0.2-2.0 [facility] Comment on above: Performed By: #### JOHN #### [facility] [address] [place] [address] Dr. Rashida Carcamo BLAST # Normal [facility] Comment on above: Performed By: #### JOHN #### [facility] [address] [place] [address] Dr. Rashida Carcamo BLAST % Normal [facility] Comment on above: Performed By: #### CBCBONY #### [facility] [address] [place] [address] Dr. Rashida Carcamo CORRECTED WBC Normal 4.0-11.0 [facility] Comment on above: Performed By: #### CBCBONY #### [facility] [address] [place] [address] Dr. Rashida Carcamo EOS # 0.00 103/ul Normal 0.00-0.70 [facility] Comment on above: Performed By: #### CBCBONY #### [facility] [address] [place] [address] Dr. Rahsida Carcamo EOS% 0.0 % Critically low 0.9-7.0 [facility] Comment on above: Performed By: #### CBCMAN #### [facility] [address] [place] [address] Dr. Rashida Carcamo HCT 44.6 % Normal 36.0-48.0 [facility] Comment on above: Performed By: #### CBCBONY #### [facility] [address] [place] [address] Dr. Rashida Carcamo HGB 14.4 g/dl Normal 12.0-16.0 [facility] Comment on above: Performed By: #### CBCBONY #### [facility] [address] [place] [address] Dr. Rashida Carcamo LYMPHM # 1.23 103/ul Normal 1.20-3.80 [facility] Comment on above: Performed By: #### CBCBONY #### [facility] [address] [place] [address] Dr. Rashida Carcamo LYMPHM% 15.0 % Critically low 20.5-60.0 [facility] Comment on above: Performed By: #### CBCBONY #### [facility] [address] [place] [address] Dr. Rashida Carcamo MCH 29.0 pg Normal 26.7-34.0 [facility] Comment on above: Performed By: #### CBCBONY #### [facility] [address] [place] [address] Dr. Rashida Carcamo MCHC 32.3 g/dl Normal 29.9-35.2 [facility] Comment on above: Performed By: #### CBCBONY #### [facility] [address] [place] [address] Dr. Rashida Carcamo MCV 89.9 fL Normal 81.0-99.0 [facility] Comment on above: Performed By: #### CBCMAN #### [facility] [address] [place] [address] Dr. Rashida Carcamo METAMYELOCYTE # Normal [facility] Comment on above: Performed By: #### CBCMAN #### [facility] [address] [place] [address] Dr. Rashida Carcamo METAMYELOCYTE % Normal [facility] Comment on above: Performed By: #### CBCMAN #### [facility] [address] [place] [address] Dr. Rashida Carcamo MONOM# 0.25 103/ul Critically low 0.30-0.80 [facility] Comment on above: Performed By: #### CBCMAN #### [facility] [address] [place] [address] Dr. Rashida Carcamo MONOM% 3.0 % Normal 1.7-12.0 [facility] Comment on above: Performed By: #### CBCMAN #### [facility] [address] [place] [address] Dr. Rashida Carcamo MPV 10.9 fL Normal 9.5-13.5 [facility] Comment on above: Performed By: #### CBCBONY #### [facility] [address] [place] [address] Dr. Rashida Carcamo MYELOCYTE # Normal [facility] Comment on above: Performed By: #### CBCBONY #### [facility] [address] [place] [address] Dr. Rashida Carcamo MYELOCYTE % Normal [facility] Comment on above: Performed By: #### CBCBONY #### [facility] [address] [place] [address] Dr. Rashida Carcamo NRBC Normal [facility] Comment on above: Performed By: #### CBCMAN #### [facility] [address] [place] [address] Dr. Rashida Carcamo PLT 172 103/ul Normal 150-450 [facility] Comment on above: Performed By: #### CBCMAN #### [facility] [address] [place] [address] Dr. Rashida Carcamo RBC 4.96 106/ul Normal 4.20-5.40 [facility] Comment on above: Performed By: #### CBCMAN #### [facility] [address] [place] [address] Dr. Rashida Carcamo RDW 14.4 % Normal 11.0-15.0 [facility] Comment on above: Performed By: #### CBCBONY #### [facility] [address] [place], [place] [address] Dr. Rashida Carcamo SEG # 6.64 103/ul Critically high 1.40-6.50 [facility] Comment on above: Performed By: #### CBCBONY #### [facility] [address] [address] Rashida Carcamo SEG % 81.0 % Critically high 43.0-75.0 [facility] Comment on above: Performed By: #### CBCMAN #### [facility] [address] [place], [place] [address] Dr. Rashida Carcamo WBC 8.2 103/ul Normal 4.0-11.0 [facility] Comment on above: Performed By: #### CBCMAN #### [facility] [address] [address] Rash[address]o [address] ABD/PELV W CONon [...] BRIEN JAIMES Date: 2021-10-18 06:24 Normal [facility] SARS-CoV-2 (COVID-19) RNA BOBO+probe Ql (Unsp spec) Not detected Normal NOT DETECTED [facility] Comment on above: Result Comment: When [...] for this test is supported by the [place] of Health and Human Service's declaration that [...] longer be used). Performed By: #### C VDTB ####[facility] [address] [address]Dr. Rashida Carcamo ER URINE PROFILEon Bilirubin Ql (U) Negative Normal NEGATIVE [facility] Comment on above: Performed By: #### ERUR #### [facility] [address] [address] [address] Rashida Carcamo Clarity (U) SL CLOUDY Abnormal CLEAR [facility] Comment on above: Performed By: #### ERUR #### [facility] [address] [address] [address] Rashida Carcamo Color (U) LT. YELLOW Normal YELLOW [facility] Comment on above: Performed By: #### ERUR #### [facility] [address] [place] [address] Dr. Rashida Carcamo ERUAHD A micrscopic examina tion will be performed if indicated. Normal [facility] Comment on above: Performed By: #### ERUR #### [facility] [address] [place] [address] Dr. Rashida Carcamo Glucose Ql (U) Negative Normal NEGATIVE [facility] Comment on above: Performed By: #### ERUR #### [facility] [address] [place] [address] Dr. Rashida Carcamo Hemoglobin Ql (U) Negative Normal NEGATIVE [facility] Comment on above: Performed By: #### ERUR #### [facility] [address] [place] [address] Dr. Rashida Carcamo Ketones Ql (U) 40 mg/dl Abnormal NEGATIVE [facility] Comment on above: Performed By: #### ERUR #### [facility] [address] [place] [address] Dr. Rashida Carcamo LEUKOCYTES Negative Normal NEGATIVE [facility] Comment on above: Performed By: #### ERUR #### [facility] [address] [place] [address] Dr. Rashida Carcamo Nitrite Ql (U) Negative Normal NEGATIVE [facility] Comment on above: Performed By: #### ERUR #### [facility] [address] [place] [address] Dr. Rashida Carcamo pH (U) 8.0 [pH] Normal 5-9 [facility] Comment on above: Performed By: #### ERUR #### [facility] [address] [place] [address] Dr. Rashida Carcamo SPEC GRAVITY 1.015 Normal 1.005-<=1.025 [facility] Comment on above: Performed By: #### ERUR #### [facility] [address] [place] [address] Dr. Rashida Carcamo UA PROTEIN Negative Normal NEGATIVE/ TRACE [facility] Comment on above: Performed By: #### ERUR #### [facility] [address] [place] [address] Dr. Rashida Carcamo UR MICRO IND NOT INDICATED Normal [facility] Comment on above: Performed By: #### ERUR #### [facility] [address] [place] [address] Dr. Rashida Carcamo Urobilinogen Qn (U) 0.2 {Lorna'U}/dL Normal 0.2 - 1.0 [facility] Comment on above: Performed By: #### ERUR #### [facility] [address] [place] [address] Dr. Rashida Carcamo LACTATE/LACTIC ACIDon 2021 Lactate [Moles/Vol] 1.3 mmol/L Normal 0.4-1.9 [facility] Comment on above: Performed By: #### LACT #### [facility] [address] [place] [address] Dr. Rashida Carcamo LIPASEon 10-18-2021 Lipase [Catalytic activity/Vol] 127.0 U/L Normal 73.0-393.0 [facility] Comment on above: Performed By: #### DAVID, CMADM, LIPA, CMP #### [facility] [address] [place] [address] Dr. Rashida Carcamo PROF 14(COMP METB)on 022 Albumin [Mass/Vol] 4.5 g/dL Normal 3.4-5.0 [facility] Comment on above: Performed By: #### DAVID, CMADM, LIPA, CMP #### [facility] [address] [place] [address] Dr. Rashida Carcamo Albumin/Globulin [Mass ratio] 1.2 {ratio} Normal [facility] Comment on above: Performed By: #### DAVID, CMADM, LIPA, CMP #### [facility] [address] [place] [address] Dr. Rashida Carcamo ALP [Catalytic activity/Vol] 67 U/L Normal 46-116 [facility] Comment on above: Performed By: #### DAVID, CMADM, LIPA, CMP #### [facility] [address] [place] [address] Dr. Rashida Carcamo ALT [Catalytic activity/Vol] 29 U/L Normal 14-59 [facility] Comment on above: Performed By: #### DAVID, CMADM, LIPA, CMP #### [facility] [address] [address] [address] Rashida Carcamo Anion gap [Moles/Vol] 14.1 mmol/L Normal [facility] Comment on above: Performed By: #### DAVID, CMADM, LIPA, CMP #### [facility] [address] [address] [address] Rashida Carcamo AST [Catalytic activity/Vol] 31 U/L Normal 15-37 [facility] Comment on above: Performed By: #### DAVID, CMADM, LIPA, CMP #### [facility] [address] [address] [address] Rashida Carcamo Bilirubin [Mass/Vol] 0.8 mg/dL Normal 0.2-1.0 [facility] Comment on above: Performed By: #### DAVID, CMADM, LIPA, CMP #### [facility] [address] [place] [address] Dr. Rashida Carcamo Calcium [Mass/Vol] 10.2 mg/dL Critically high 8.5-10.1 [facility] Comment on above: Performed By: #### DAVID, CMADM, LIPA, CMP #### [facility] [address] [address] [address] Rashida Carcamo Chloride [Moles/Vol] 100 mmol/L Normal 98-107 [facility] Comment on above: Performed By: #### DAVID, CMADM, LIPA, CMP #### [facility] [address] [address] [address] Rashida Carcamo CO2 [Moles/Vol] 29.4 mmol/L Normal 21.0-32.0 [facility] Comment on above: Performed By: #### DAVID, CMADM, LIPA, CMP #### [facility] [address] [address] [address] Rashida Carcamo Creatinine [Mass/Vol] 0.70 mg/dL Normal 0.55-1.02 [facility] Comment on above: Performed By: #### DAVID, CMADM, LIPA, CMP #### [facility] [address] [address] [address] Rashida Carcamo EGFR-AF HAITIAN >60 Normal >=60 [facility] Comment on above: Performed By: #### DAVID, CMADM, LIPA, CMP #### [facility] [address] [place] [address] Dr. Rashida Carcamo EGFR-NON AF HAITIAN >60 Normal >=60 [facility] Comment on above: Performed By: #### DAVID, CMADM, LIPA, CMP #### [facility] [address] [address] [address] Rashida Carcamo Globulin (S) [Mass/Vol] 3.9 g/dL Normal [facility] Comment on above: Performed By: #### DAVID, CMADM, LIPA, CMP #### [facility] [address] [place] [address] Dr. Rashida Carcamo Glucose [Mass/Vol] 164 mg/dL Critically high 74-106 [facility] Comment on above: Performed By: #### DAVID, CMADM, LIPA, CMP #### [facility] [address] [place] [address] Dr. Rashida Carcamo Potassium [Moles/Vol] 3.5 mmol/L Normal 3.5-5.1 [facility] Comment on above: Performed By: #### DAVID, CMADM, LIPA, CMP #### [facility] [address] [place] [address] Dr. Rashida Carcamo Protein [Mass/Vol] 8.4 g/dL Critically high 6.4-8.2 [facility] Comment on above: Performed By: #### DAVID, CMADM, LIPA, CMP #### [facility] [address] [place] [address] Dr. Rashida Carcamo Sodium [Moles/Vol] 140 mmol/L Normal 136-145 [facility] Comment on above: Performed By: #### DAVID, CMADM, LIPA, CMP #### [facility] [address] [place] [address] Dr. Rashida Carcamo Urea nitrogen [Mass/Vol] 24.0 mg/dL Critically high 7.0-18.0 [facility] Comment on above: Performed By: #### DAVID, CMADM, LIPA, CMP #### [facility] [address] [place], [place] [address] Dr. Rashida Carcamo Urea nitrogen/Creatin ine [Mass ratio] 34.3 mg/mg Normal [facility] Comment on above: Performed By: #### DAVID, CMADM, LIPA, CMP #### [facility] [address] [place], [place] [address] Dr. Rashida Carcamo XR FOOT KARLOS MIN [...] by: ISAIAH ROJAS Date: 2021-08-06 12:00 Normal [facility] CASE MANAGEMon 01-13-2017 CASE MANAGEM HNO ID: [id number] thor: Samanta (Rn) Prashanth, RAJervice: Care ManagementAuthor Type: Registered NurseType: Care Mgt Progress NoteFiled: 01/13/2017 11:46 AMNote Text:MULTIDISCIPLINARY ROUNDSSERVICE DATE: 01/13/2017 ADMISSION DATE: 01/08/2017SERVICE TIME: 11:43 AM ANTICIPATED D/C DATE: 01/13/2017Problem List:ACTIVE PROBLEM LISTIron Deficiency AnemiaPud (Peptic Ulcer Disease)Carotid StenosisVertigoTachycardiaBpv (Benign Positional Vertigo)Hld (Hyperlipidaemia)Rectal BleedingExertional DyspneaEmphysema of Lung (Hcc)Alcohol AbuseStatus Post SurgerySbo (Small Bowel Obstruction) ([facility])Attendees Present at Rounds:Boat Engine Mechanic: Alison ALFONSO ACMNurse Medical Instrument Cable Fabricator: Marlena Jordan RNStaff Nurse: Laura Discussed on Rounds:Discharge NeedsAnticipated Discharge [...] January 13, 2017 : 11:43 AM CSN: [id number] [facility] HNO ID: [id number] thor: Natasha (Junior Network Engineer) MONIQUE YunService: General SurgeryAuthor Type: Nurse PractitionerType: Discharge SummariesFiled: 01/13/2017 1:38 PMNote Text:DISCHARGE SUMMARYPATIENT NAME: Sofie Adrian ADMISSION DATE: 01/08/2017MRN: [id number] DISCHARGE DATE: 01/13/2017Attending Physician: Adis Richardson for Hospitalization: abdominal painActive Problems: SBO (small bowel obstruction) (HCC)Resolved Problems: * No resolved hospital problems. *Operations During Hospitalization: Diagnostic laparoscopy and lysis ofadhesionsProcedures During Hospitalization: intubation for surgeryHospital Course:Admitted on 01/08/17 with abdominal pain, [facility] and vomiting [facility]. Evaluated by surgery and CT [...] (141 lb 6.4 oz) SpO2 95% BMI26.72 kg/a8Tgnubzwehrx Provided to Patient:Symptoms or health problems to watch for after I leave the hospital:-Increasing abdominal pain or gwturfzp-Kkzjqaam-Sryn or no urine-Fever greater than 101.5?F (38.6?C) [...] yoursurgeon and set up an appointment at [phone] Medications: Discharge Medication List as of 01/13/2017 [...] procedure)Comments:Reason for Stopping:Future AppointmentsDate Time Provider Department Xvlbke1601/26/2017 2:00 PM [id number], KATHRYN (INSULATION NOZZLEMAN) CAM199 [facility] - Office [address] [address] *[facility] first [facility] the security office and the flower shop*TIME OF CARE: Discharge Management: I personally spent greater than 30minutes involved in the discharge management of this patient.SIGNATURE: Natasha YUN CNP PAGER: [phone]: January 13, 2017TIME: 9:50 AM [facility] NURSING PROGon 01-13-2017 NURSING PROG HNO ID: [id number] thor: Saida (Rn) RAJ Rodriguezervice: NursingAuthor Type: Registered NurseType: Nursing Progress NoteFiled: 01/13/2017 1:14 PMNote Text: Nursing Progress NotePatient Name: Sofie AdrianN: [id number] [address] _Daily Note:IV Heplock D/C'd. Discharge instructions reviewed with patient, statesunderstanding. RX for Colace and MOM. No further questions at this time.1313: D/C off unit via wheelchair, picking up patient.This note was completed by: Saida Rodriguez RN [facility] NURSING PROG HNO ID: [id number] thor: Carmen RennerRn) RAJ Quesadaervice: (none)Author Type: Registered NurseType: Nursing Progress NoteFiled: 01/13/2017 2:33 AMNote Text: Nursing Progress NotePatient Name: Sofie AdrianMRN: [id number] Location: [address] [address]/SF-TT3Y-97 _ Sarah dsg changed earlier approx 2200 as saturated with serosang drainage.Gown changed. Pain controlled with toradol and tylenol and 5mg oxycodonegiven earlier. Pt declined MOM and colace as states had at least eightBMs loose today . Reports is chronic diarrhea after colon resection inpast.This note was completed by: Carmen Quesada RN [facility] PROGRESSon 01-13-2017 PROGRESS HNO ID: [id number] thor: Carlos (Res) PhilipService: General SurgeryAuthor Type: [...] wound. Patient tolerated the procedure well.Carlos Garcia MDGeneuniversity hospitals conneaut [facility] SurgeryFor any questions please contactSurgery Green Team pager [phone] weekdays.Or [phone] weeknights (6pm - 6am) and weekends.Date: 01/13/2017Time: 10:17 AM [facility] PROGRESS HNO ID: [id number] thor: Adis Bryante: General SurgeryAuthor Type: PhysicianType: Progress NotesFiled: 01/13/2017 1:09 PMNote Text:General Surgery Progress NoteService Date: January 13, 2017Patient Name: Sofie Donald JakeMRN: [id number] and Plan: 61 year old female with SBO and strangulated internalhernia??POD 4?s/p laparoscopic lysis of adhesions, doing well. Leukopenia?- Pain control: tylenol, PO oxy- FEN/GI: GIS diet, mIVFs- No Trujillo- VTE Prophylaxis: SQH, SCDs- Routine surgical care: IS, OOB- Dispo: Possible DC todayPlan to be discussed with Surgery Staff.Raghu Westbrook MDFor any questions please contactSurgery Green Team pager [phone] weekdays.Or [phone] weeknights (6pm - 6am) and weekends.Date: 01/13/2017Time: 7:55 AMSubjective:Interval Events: none. Pain: controlled. + bowel function. No othercomplaints.Physical Exam:BP 126/71 Pulse 65 Temp 36.6 ?C (97.9 ?F) (Oral) Resp 16 Ht 154.9cm (5' 1 ) Wt 64.1 kg (141 lb 6.4 oz) SpO2 95% BMI 26.72 kg/s7SWTCWKG/NEURO: Awake, Alert, no distressHEENT: Normocephalic, Atraumatic, sclera [...] 01/13/17 0659 01/13/17 07 - 01/14/17 0659Shift 0077-1621 1950-8146 2953-7951 24 Hour Total 0401-6366 6889-83456464-4052 24 Hour TotalINTAKE PO 120 120 240 PO 120 120 240 IV 1148 1148 D5 0.45%NS w/20KCL 1148 1148 Shift Total 1268 120 1388OUTPUT Urine 1200 449 180 5135 100 100 Void (ml) 1200 840 132 7593 100 100 Tubes 190 140 210 540 30 30 Drain/Tube Output (Drain/Tube [facility] Right Abdomen 01/09/1719Fr) 190 140 210 540 30 30 # of BMs Number of BMs 1 x 2 x 1 x 4 x Shift Total 1390 882 526 1900 130 130Weight (kg) 64.1 64.1 64.1 64.1 [...] answered and concerns addressedPt appreciative of the Evan Brown MDSeptember 2016 1:09 PM Normal [facility] Basic Metabolic Panlon 01-12 Anion gap 10 mmol/L Normal 01-12 [facility] Comment on above: Performed By: #### CBC, BMP, MG1 ####[facility] [address] [phone] Calcium 8.3 mg/dL Low 8.5-10.5 [facility] Comment on above: Result Comment: Reviewed Performed By: #### C RITA DOMÍNGUEZ, MG1 ####[address] [address] Chloride 105 mmol/L Normal 98-110 [facility] Comment on above: Performed By: #### RITA GRUBBS, MG1 ####[address] [address] CO2 23 mmol/L Normal 23-32 [facility] Comment on above: Performed By: #### RITA GRUBBS, MG1 ####[address] [address] Creatinine 0.54 mg/dL Low 0.70-1.40 [facility] Comment on above: Performed By: #### RITA GRUBBS, MG1 ####[address] [address] eGFR (non-black) mL/min/{1.73_m2} Normal >60 [facility] Comment on above: Performed By: #### RITA GRUBBS, MG1 ####[address] [place] [address] Glucose mass conc 111 mg/dL High 65-100 [facility] Comment on above: Performed By: #### ROMIE BMP, MG1 ####[address] [place] [address] Potassium molar conc 4.1 mmol/L Normal 3.5-5.0 [facility] Comment on above: Result Comment: Reviewed Performed By: #### C CATRACHITA BMP, MG1 ####[address] [place] [address] Sodium 138 mmol/L Normal 132-148 [facility] Comment on above: Performed By: #### ROMIE, BMP, MG1 ####[address] [address] Urea nitrogen 4 mg/dL Low 8-25 [facility] Comment on above: Performed By: #### CBC, BMP, MG1 ####[place] [address] [place], [place] [phone] CASE MGT INIT Eren 2016 CASE MGT INIT LINDA HNO ID: [id number]: 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 Dtr lives nearby and assists with cleaningFinancial Resources: Pt and own a body shopPrimary Contact:Extended Emergency Contact InformationPrimary Emergency Contact: Ying Adrian Qxeqdmey: ChildSupportive: YesOther Important Patient Contacts: Pt states [...] days? NoHas the Patient Been in a Long Term Facility in the Past 30 days? NoFREEDOM OF CHOICE EXPLAINED:Yes with ptHANDOFF COMMUNICATION:Primary Care Physician: Tommy Anaya DO .Summary will be routed via iWatt at d/cPt [facility] (about [address] [facility]) She is hopingto return home with no needs, but family can assist should needs arise.Dtr or will transport at d/c.SIGNATURE: BISMARK Jacobs PATIENT NAME: Sofie AdrianDATE: January 12, 2017 : 10:32 AM PAGER/CONTACT #: [phone] Normal [facility] CBCon 01-12-2017 Erythrocyte distribution width Auto Ratio (RBC) 12.7 % Normal 11.5-15.0 [facility] Comment on above: Performed By: #### RITA GRUBBS, MG1 ####[place] [address] [place], [place] [phone] Erythrocytes (RBC) 2.78 10*6/uL Low 3.90-5.20 [facility] Comment on above: Performed By: #### RITA GRUBBS, MG1 ####[place] [address] [phone] Hematocrit (HCT) 27.9 % Low 36.0-46.0 [facility] Comment on above: Performed By: #### CBC BMP, MG1 ####[address] [phone] Hemoglobin mass conc (Bld) 8.8 g/dL Low 11.5-15.5 [facility] Comment on above: Performed By: #### CBC BMP, MG1 ####[address] [phone] MCH 31.7 pG Normal 26.0-34.0 [facility] Comment on above: Performed By: #### CBC BMP, MG1 ####[address] [phone] MCHC mass conc (RBC) 31.5 g/dL Normal 30.5-36.0 [facility] Comment on above: Performed By: #### CBC, BMP, MG1 ####[address] [phone] MCV 100.4 fL High 80.0-100.0 [facility] Comment on above: Performed By: #### CBC, BMP, MG1 ####[address] [phone] Platelet mean volume (PMV) 11.1 fL Normal 9.0-12.7 [facility] Comment on above: Performed By: #### CBC, BMP, MG1 ####[place] [phone] Platelets 135 10*3/uL Low 150-400 [facility] Comment on above: Performed By: #### CBC, BMP, MG1 ####[address] [phone] WBC (Leukocytes) 3.27 10*3/uL Low 3.70-11.00 [facility] Comment on above: Performed By: #### CBC, BMP, MG1 ####[facility] [place], [place] [phone] Magnesiumon 01-12-2017 Magnesium 1.8 mg/dL Normal 1.7-2.6 [facility] Comment on above: Performed By: #### CBC, BMP, MG1 ####[place] [facility] [place], [place] [phone] PROGRESSon 01-12-2017 PROGRESS HNO ID: [id number] thor: Raghu (TREY Grandaervice: General SurgeryAuthor Type: ResidentType: Progress NotesFiled: 01/12/2017 7:27 AMNote Text:General Surgery Progress NoteService Date: January 12, 2017Patient Name: Sofie AdrianMRN: [id number] and Plan: Sofie Adrian is a 61 year old female with SBO andstrangulated internal hernia??POD 3?s/p laparoscopic lysis of adhesions,doing well. Leukopenia- Pain control: tylenol, DC morphine CAR PILOT, transition to PO oxy- FEN/GI: GIS diet, mIVFs- No Trujillo- VTE Prophylaxis: SQH, SCDs- Routine surgical care: IS, OOB- Dispo: RNFPlan to be discussed with Surgery Staff.Raghu Westbrook MDFor any questions please contactSurgery Green Team pager [phone] weekdays.Or [phone] weeknights (6pm - 6am) and weekends.Date: 01/12/2017Time: 5:51 AMSubjective:Interval Events: Resting well. No acute issues overnight. BM-, Flatus+.Pain -. N-. Denies SoB/CPPhysical Exam:BP 110/67 Pulse 76 Temp 36.5 ?C (97.7 ?F) (Oral) Resp 16 Ht 154.9cm (5' 1 ) Wt 64.1 kg (141 lb 6.4 oz) SpO2 95% BMI 26.72 kg/r0UAWMXTO/NEURO: Awake, Alert, no distressHEENT: Normocephalic, Atraumatic, sclera [...] LipaseLactate (mmol/L)Date Value08/08/2015 1.0Intake and Output:Date 01/11/17 0700 - 01/12/17 0659 01/12/17 0700 - 01/13/17 0659Shift 2193-8080 2002-5632 4980-4336 24 Hour Total 7693-2044 7030-76643459-3597 24 Hour TotalINTAKE PO 120 120 240 PO 120 120 240 IV 730 123 3717 D5 0.45%NS w/20KCL 420 006 3582 Shift Total 1025 739 1764OUTPUT Urine 475 888 725 6695 Void (ml) 275 603 788 0366 Tube Output ([REMOVED] Drain Trujillo 01/09/17 16 Georgian ) 200 200 Tubes 140 130 100 370 Drain/Tube Output (Drain/Tube Hasmukh Atkins Right Abdomen 01/09/1719Fr) 140 130 100 370 Shift Total 615 730 500 1845Weight (kg) 64.1 64.1 64.1 64.1 64.1 64.1 64.1 64.1Current Medications:Current hospital medications:pantoprazole DR 20 mg tab(s) (PROTONIX) 20 mg ORAL DAILY (6 AM)dextrose 5% in NaCl 0.45% with 20 mEq/L KCl iv infusion 100 mL/hrINTRAVENOUS CONTINUOUSmorphine CAR PILOT 1 mg/mL in NaCl 0.9% 100 mL INTRAVENOUS CONTINUOUSmorphine 1 mg/mL CAR PILOT CLINICIAN DOSE 1 mg 1 mg INTRAVENOUS [...] PRODUCT Indications: OSTEO-BIFLEX Takes 2 PO QD Normal [facility] PT EDon 01-12-2017 PT ED HNO ID: [id number] thor: Nikki Tinajero (Pharmacist)Service: PharmacyAuthor Type: PharmacistType: Patient EducationFiled: 01/12/2017 11:10 AMNote Text:Clinical Pharmacy ServicesHigh Risk: Daily Medication AssessmentPatient Name: Sofie Donald PocahontasMRN: [id number] Date: 01/08/2017Service Date and Time: 01/12/2017 10:52 AMNew MedicationsThe following medications have been started since last pharmacy review:Protonix, ToradolMedication education has been completed: Yes or Comments: patient alsoasked about dosing her metoprololSignature: Julius Feliz (Community Development Specialist)[place]: [phone]: [phone] Addendum:The above case has been reviewed and discussed with the director state pharmacy.I agree with the assessment/plan described by the student. Changes andadditions to the details in the above note are indicated by italics and .Nikki Tinajero, Pharmacist01/12/2017 11:10 [id number] [facility] ANES Viktor 01-11-2017 ANES POST HNO ID: [id number] thor: Payam Gomezervice: AnesthesiologyAuthor Type: AnesthesiologistType: Anesthesia PostOpFiled: 01/11/2017 12:37 PMNote Text:POST ANESTHESIA EVALUATION NOTESERVICE DATE: 01/11/2017SERVICE TIME: 12:36 PMDOB: 1955Vitals: 01/12/1704BP: 93/60 101/59 104/61 114/64Pulse: 72 87 82 83Resp: 16Temp: 36.4 ?C (97.6 ?F) 37.1 ?C [...] 11, 2017 : 12:36 PM PAGER/CONTACT #: [phone] [facility] Basic Metabolic Panlon 01-11 Anion gap 9 mmol/L Normal 01-12 [facility] Comment on above: Performed By: #### CBC, BMP, MG1 ####[address] [place], [place] [phone] Calcium 7.4 mg/dL Low 8.5-10.5 [facility] Comment on above: Performed By: #### CBC, BMP, MG1 ####[facility] [phone] Chloride 104 mmol/L Normal 98-110 [facility] Comment on above: Performed By: #### CBC, BMP, MG1 ####[place] [phone] CO2 23 mmol/L Normal 23-32 [facility] Comment on above: Performed By: #### ROMIE BMP, MG1 ####[place] [phone] Creatinine 0.64 mg/dL Low 0.70-1.40 [facility] Comment on above: Performed By: #### ROMIE BMP, MG1 ####[place] [address] eGFR (non-black) mL/min/{1.73_m2} Normal >60 [facility] Comment on above: Performed By: #### RITA GRUBBS, MG1 ####[place] [address] Glucose mass conc 188 mg/dL High 65-100 [facility] Comment on above: Performed By: #### RITA GRUBBS, MG1 ####[place] [address] Potassium molar conc 3.4 mmol/L Low 3.5-5.0 [facility] Comment on above: Performed By: #### ROMIE BMP, MG1 ####[place] [address] Sodium 136 mmol/L Normal 132-148 [facility] Comment on above: Performed By: #### ROMIE BMP, MG1 ####[address] Urea nitrogen 10 mg/dL Normal 8-25 [facility] Comment on above: Performed By: #### ROMIE BMP, MG1 ####[address] CBCon 01-11-2017 Erythrocyte distribution width Auto Ratio (RBC) 12.9 % Normal 11.5-15.0 [facility] Comment on above: Performed By: #### ROMIE BMP, MG1 ####[place] [address] Erythrocytes (RBC) 2.55 10*6/uL Low 3.90-5.20 [facility] Comment on above: Performed By: #### CBC, BMP, MG1 ####[place] [phone] Hematocrit (HCT) 25.8 % Low 36.0-46.0 [facility] Comment on above: Performed By: #### CBC, BMP, MG1 ####[place] [address] Hemoglobin mass conc (Bld) 8.2 g/dL Low 11.5-15.5 [facility] Comment on above: Performed By: #### CBC, BMP, MG1 ####[place] [address] MCH 32.2 pG Normal 26.0-34.0 [facility] Comment on above: Performed By: #### CBC, BMP, MG1 ####[address] MCHC mass conc (RBC) 31.8 g/dL Normal 30.5-36.0 [facility] Comment on above: Performed By: #### CBC, BMP, MG1 ####[place] [address] MCV 101.2 fL High 80.0-100.0 [facility] Comment on above: Performed By: #### CBC, BMP, MG1 ####[address] Platelet mean volume (PMV) 10.9 fL Normal 9.0-12.7 [facility] Comment on above: Performed By: #### CBC, BMP, MG1 ####[address] Platelets 112 10*3/uL Low 150-400 [facility] Comment on above: Performed By: #### CBC, BMP, MG1 ####[facility] [place] [phone] WBC (Leukocytes) 2.75 10*3/uL Low 3.70-11.00 [facility] Comment on above: Performed By: #### CBC, BMP, MG1 ####[facility] [phone] Magnesiumon 01-11-2017 Magnesium 1.7 mg/dL Normal 1.7-2.6 [facility] Comment on above: Performed By: #### CBC, BMP, MG1 ####[place] [phone] NURSING PROGon 01-11-2017 NURSING PROG HNO ID: [id number] thor: Josie RennerRn) RAJ Plaafoxervice: NursingAuthor Type: Registered NurseType: Nursing Progress NoteFiled: 01/12/2017 12:04 AMNote Text: Nursing Progress NotePatient Name: Sofie Donald JakeMRN: [id number] Location: [place] [address]/MU-UR4W-15 _ Pt awake and alert. Pt c/o 2/10 abdominal pain. Pt minimally using PCApump. Explained POC and probable advancement in diet and possiblediscontinue of CAR PILOT pump. Pt understands. Will continue to monitor.This note was completed by: Josie Palafox, RN,BSN Normal [facility] NURSING PROG HNO ID: [id number] thor: Judy RennerRn) RAJ Garciaervice: (none)Author Type: Registered NurseType: Nursing Progress NoteFiled: 01/11/2017 6:28 PMNote Text: Nursing Progress NotePatient Name: Sofie Donald JakeMRN: [id number] Location: [place] [address]/KA-BQ7M-46 _Daily Note:IV/CAR PILOT maintained.Taking diet fair.No n/v.Voiding clearurine.Up in chair for about one hour,ambulates to bathroom with walker andone assist.Will reassess.This note was completed by: Judy Garcia RN [facility] NURSING PROG HNO ID: [id number] thor: Judy (Rn) Jose, RNService: (none)Author Type: Registered NurseType: Nursing Progress NoteFiled: 01/11/2017 9:48 AMNote Text: Nursing Progress NotePatient Name: Sofie Donald JakeMRN: [id number] Location: [facility]/ER-BA7O-23 _Daily Note:IV/CAR PILOT morphine maintained.Diet advanced to clear liquid thento GI soft-waiting for tray at this time.Taking clear liquids well.Non/v.Trujillo removed at 8:10 A.M.,has not voided as of yet.Lap sites cleanand well approximated.No drainage noted.Dressing around Hasmukh Atkins inplace and draining reddish drainage.Abd. soft,distended,and tender.Bowelsounds hypoactive.Denies pain.Will reassess.This note was completed by: Judy Garcia RN [facility] PROGRESSon 01-11-2017 PROGRESS HNO ID: [id number] thor: Reji Hollis: General SurgeryAuthor Type: PhysicianType: Progress NotesFiled: 01/11/2017 3:04 PMNote Text: SURGERY INPATIENT PROGRESS NOTEName: Sofie Donald JakeMRN: [id number] and Plan:61 year old female with SBO and strangulated internal hernia POD 2 s/plaparoscopic lysis of adhesions, doing well?- Pain control: tylenol, morphine CAR PILOT- FEN/GI: GIS diet, NGT removed yesterday- ID: On Abx Zosyn- DC Trujillo today- VTE Prophylaxis: SQH, SCDs- Routine surgical care: IS, OOB- Dispo: RNFS: Resting well. No acute issues overnight. BM-, Flatus+. Pain -. N-.Denies SoB/CP.O:Current hospital medications:phenol 1 [place] (CHLORASEPTIC) 1 [place] MUCOUS MEMBRANE (TOPICAL MOUTH ANDTHROAT) q 2 H PRNdextrose 5% in NaCl 0.45% with 20 mEq/L KCl iv infusion 100 mL/hrINTRAVENOUS CONTINUOUSmorphine CAR PILOT 1 mg/mL in NaCl 0.9% 100 mL INTRAVENOUS CONTINUOUSmorphine 1 mg/mL CAR PILOT CLINICIAN DOSE 1 mg 1 mg INTRAVENOUS [...] lb 6.4 oz) SpO2 96% BMI 26.72 kg/v2Yionst/Output Summary (Last 24 hours) at 01/11/17 0755Last [...] not displayed.Liver Function, Amylase, AND LipaseRecent Labs 08/11/16008TPROT 8.1 6.9 6.1 < > --ALB 4.1 [...] to proceed with today?splan of care.Raghu Westbrook MDGeneuniversity hospitals [facility] Surgery PGY-17:55 AM01/11/2017Green Team Pager: [phone]*Please page Jr. On-Call [phone]) 6pm - 6am and on weekends.Att: NG out. Fullness after eating today - I told her to take it slowly. Abdomen still benign.Some Pancytopenia on labs - could be lab error. Will recheck in AM. Ptclinically stable.Reji Sampson, [facility] [place]04 PM Normal [facility] Basic Metabolic Panlon 01-10 Anion gap 12 mmol/L Normal 9-18 [facility] Comment on above: Performed By: #### CBC, BMP, MG1 ####[place] [phone] Calcium 7.8 mg/dL Low 8.5-10.5 [facility] Comment on above: Performed By: #### CBC, BMP, MG1 ####[place] [phone] Chloride 104 mmol/L Normal 98-110 [facility] Comment on above: Performed By: #### CBC, BMP, MG1 ####[place] [phone] CO2 23 mmol/L Normal 23-32 [facility] Comment on above: Performed By: #### CBC, BMP, MG1 ####[place] [phone] Creatinine 0.66 mg/dL Low 0.70-1.40 [facility] Comment on above: Performed By: #### CBC, BMP, MG1 ####[place] [phone] eGFR (non-black) mL/min/{1.73_m2} Normal >60 [facility] Comment on above: Performed By: #### RITA GRUBBS MG1 ####[place] [phone] Glucose mass conc 100 mg/dL Normal 65-100 [facility] Comment on above: Performed By: #### RITA GRUBBS, MG1 ####[place] [phone] Potassium molar conc 3.6 mmol/L Normal 3.5-5.0 [facility] Comment on above: Performed By: #### RITA GRUBBS MG1 ####[place] [phone] Sodium 139 mmol/L Normal 132-148 [facility] Comment on above: Performed By: #### RITA GRUBBS MG1 ####[place] [phone] Urea nitrogen 12 mg/dL Normal 8-25 [facility] Comment on above: Performed By: #### RITA GRUBBS MG1 ####[place] [phone] CBCon 01-10-2017 Erythrocyte distribution width Auto Ratio (RBC) 12.5 % Normal 11.5-15.0 [facility] Comment on above: Performed By: #### RITA GRUBBS, MG1 ####[place] [phone] Erythrocytes (RBC) 3.23 10*6/uL Low 3.90-5.20 [facility] Comment on above: Performed By: #### RITA GRUBBS, MG1 ####[place] [phone] Hematocrit (HCT) 32.3 % Low 36.0-46.0 [facility] Comment on above: Performed By: #### RITA GRUBBS, MG1 ####[place] [phone] Hemoglobin mass conc (Bld) 10.3 g/dL Low 11.5-15.5 [facility] Comment on above: Performed By: #### CBC BMP, MG1 ####[place] [phone] MCH 31.9 pG Normal 26.0-34.0 [facility] Comment on above: Performed By: #### CBC, BMP, MG1 ####[place] [phone] MCHC mass conc (RBC) 31.9 g/dL Normal 30.5-36.0 [facility] Comment on above: Performed By: #### CBC, BMP, MG1 ####[place] [phone] MCV 100.0 fL Normal 80.0-100.0 [facility] Comment on above: Performed By: #### CBC, BMP, MG1 ####[place] [phone] Platelet mean volume (PMV) 11.3 fL Normal 9.0-12.7 [facility] Comment on above: Performed By: #### CBC, BMP, MG1 ####[place] [phone] Platelets 113 10*3/uL Low 150-400 [facility] Comment on above: Performed By: #### CBC, BMP, MG1 ####[place] [phone] WBC (Leukocytes) 5.33 10*3/uL Normal 3.70-11.00 [facility] Comment on above: Performed By: #### CBC, BMP, MG1 ####[place] [phone] Magnesiumon 01-10-2017 Magnesium 1.9 mg/dL Normal 1.7-2.6 [facility] Comment on above: Performed By: #### CBC, BMP, MG1 ####[place] [id number] [phone] NURSING PROGon 01-10-2017 NURSING PROG HNO ID: [id number] thor: Julia RennerRn) [place] Serra: (none)Author Type: Registered NurseType: Nursing Progress NoteFiled: 01/10/2017 5:25 PMNote Text: Nursing Progress NotePatient Name: Sofie AdrianN: [id number] Location: [place] [address]/CU-[id number] _Daily Note:1700: Removed NG tube per physician order. Patient tolerated procedurewell. Ice water was provided to patient post-removal and she toleratedwell.This note was completed by: Julia Serra RN [facility] NURSING PROG HNO ID: [id number] thor: Mariluz Kumari) Elva Schaferice: (none)Author Type: Registered NurseType: Nursing Progress NoteFiled: 01/10/2017 1:28 PMNote Text: Nursing Progress NotePatient Name: Sofie AdrianN: [id number] Location: [place] [address]/[id number]-[id number] _Daily Note: No acute issues this shift. Pt. up in chair. Ambulated inhall with walker and 1 staff assist. CAR PILOT morphine maintaining paincontrol. NGT to LCWS draining scant amount of bilious fluid.BS-hypoactive. IS use encouraged. Call light within reach. NPO exeptsmeds. Will continue to monitor.This note was completed by: Mariluz Schafer RN [facility] PROGRESSon 01-10-2017 PROGRESS HNO ID: [id number] thor: Reji Hollis: General SurgeryAuthor Type: PhysicianType: Progress NotesFiled: 01/10/2017 5:59 PMNote Text: SURGERY INPATIENT PROGRESS NOTEName: Sofie AdrianMRN: [id number] and Plan:61 year old female with SBO and strangulated internal hernia POD 1 s/plaparoscopic lysis of adhesions, doing well- Pain control: tylenol, morphine CAR PILOT- FEN/GI: NPO, NGT- ID: On Abx Zosyn- DC [place] today- VTE Prophylaxis: SQH, SCDs- Routine surgical care: IS, OOB- Dispo: RNFS: Resting well. No acute issues overnight. BM-, Flatus-. Pain -. N-.Denies SoB/CP.O:Current hospital medications:phenol 1 [place] (CHLORASEPTIC) 1 [place] MUCOUS MEMBRANE (TOPICAL MOUTH ANDTHROAT) q 2 H PRNmorphine CAR PILOT 1 mg/mL in NaCl 0.9% 100 mL INTRAVENOUS CONTINUOUSmorphine 1 mg/mL CAR PILOT CLINICIAN DOSE 1 mg 1 mg INTRAVENOUS [...] lb 6.4 oz) SpO2 98% BMI 26.72 kg/f7Nguahv/Output Summary (Last 24 hours) at 01/10/17 1006Last [...] not displayed.Liver Function, Amylase, AND LipaseRecent Labs 08/11/1600TPROT 8.1 6.9 6.1 < > --ALB 4.1 4.0 3.5 < > --ALT 12 51* 46* < > --AST 37 91* 81* < > --ALKPHOS 207* 185* 130 < > --TBILI 0.4 0.4 0.4 < > --LACT -- -- -- -- 1.0< > = values in this interval not displayed.CoagsRecent Labs 950 [id number] 28.1 26.8 27.7INR 1.1 1.1 1.1*A review of daily goals, interventions, and plan of care with themultidisciplinary team and patient has been conducted. The patient?sconcerns have been addressed and he/she agrees to proceed with today?splan of care.Raghu Westbrook MDGeneral Surgery PGY-110:06 AM01/10/2017Green Team Pager: [phone]*Please page Jr. On-Call [phone]) 6pm - 6am and on weekends.Att: As above. Pt seen at 1000 today. Minimal pain, and abdomen benign. NG output decreasing; will consider clamp trial later vs DC of NGtomorrow AM.Reji Sampson, [facility] [place] 5:59 PM Normal [facility] Toxicology Screen,Uron 01-10 Amphetamines, Urine Negative Normal Negative [facility] Comment on above: Result Comment: Cutoff threshold at 1000 ng/mL.Detection of any drug(s) is presumptive only. For confirmation by alternative methods contact the Laboratory within 5 days. For medical purposes only. Documented cross-reactivities (false positives) on file in Laboratory. Performed By: #### U TOX2 ####[address] [phone] Barbiturates, Urine Negative Normal Negative [facility] Comment on above: Result Comment: Cutoff threshold at 200 ng/mL.Detection of any drug(s) is presumptive only. For confirmation by alternative methods contact the Laboratory within 5 days. For medical purposes only. Documented cross-reactivities (false positives) on file in Laboratory. Performed By: #### U TOX2 ####[address] [phone] Benzodiazepines, Ur Positive Critically abnormal Negative [facility] Comment on above: Result Comment: Cutoff threshold at 200 ng/mL.Detection of any drug(s) is presumptive only. For confirmation by alternative methods contact the Laboratory within 5 days. For medical purposes only. Documented cross-reactivities (false positives) on file in Laboratory. Performed By: #### U TOX2 ####[place] [phone] Cannabinoids, Urine Negative Normal Negative [facility] Comment on above: Result Comment: Cutoff threshold at 50 n g/mL.Detection of any drug(s) is presumptive only. For confirmation by alternative methods contact the Laboratory within 5 days. For medical purposes only. Documented cross-reactivities (false positives) on file in Laboratory. Performed By: #### U TOX2 ####[place] [phone] Cocaine, Urine Negative Normal Negative [facility] Comment on above: Result Comment: Cutoff threshold at 300 ng/mL.Detection of any drug(s) is presumptive only. For confirmation by alternative methods contact the Laboratory within 5 days. For medical purposes only. Documented cross-reactivities (false positives) on file in Laboratory. Performed By: #### U TOX2 ####[place] [phone] Ethanol, Urine <11 Normal <11 [facility] Comment on above: Performed By: #### UTOX2 ####[place] [address] Opiates, Urine Positive Critically abnormal Negative [facility] Comment on above: Result Comment: Cutoff threshold at 300 ng/mL.Detection of any drug(s) is presumptive only. For confirmation by alternative methods contact the Laboratory within 5 days. For medical purposes only. Documented cross-reactivities (false positives) on file in Laboratory. Performed By: #### U TOX2 ####[address] Oxycodone, Urine Negative Normal Negative [facility] Comment on above: Result Comment: Cutoff threshold at 100 ng/mL.Detection of any drug(s) is presumptive only. For confirmation by alternative methods contact the Laboratory within 5 days. For medical purposes only. Documented cross-reactivities (false positives) on file in Laboratory. Performed By: #### U TOX2 ####[address], [place] [phone] Phencyclidine, Urine Negative Normal Negative [facility] Comment on above: Result Comment: Cutoff threshold at 25 n g/mL.Detection of any drug(s) is presumptive only. For confirmation by alternative methods contact the Laboratory within 5 days. For medical purposes only. Documented cross-reactivities (false positives) on file in Laboratory. Performed By: #### U TOX2 ####[place] [id number] [place], [place] [phone] ANES PREOPon 01-09-2017 ANES PREOP HNO ID: [id number] thor: Joe RomeroeService: AnesthesiologyAuthor Type: AnesthesiologistType: Anesthesia PreOpFiled: 01/09/2017 11:54 AMNote Text:REGIONAL ANESTHESIOLOGY DAY OF SURGERY NOTEPATIENT NAME: Sofie AdrianMRN: [id number]: 1955Procedure(s) (LRB):EXPLORATORY LAPAROTOMY ADULT (N/A)LAPAROSCOPY DIAGNOSTIC (N/A)Surgeon(s):Adis [...] 01/09/2017PT INR 1.1 01/09/2017Creatinine 0.58 01/09/2017EKG:sinus tachycardiaVitals: 01/10/1704979271HP: 122/72 146/78 140/73 119/75Pulse: 108 111 96 [...] Takes 2 PO QDInpatient medications reviewed in [facility].I have interviewed and examined the patient. I have reviewed the medicalrecord and/or the pre-anesthesia evaluation, pertinent labs, and testresults.Significant changes in the patient's condition since the History andPhysical, not otherwise documented in primary service progress notes: NoTdecatur [facility] systems contains updated information obtained within 48 hours ofSurgery/Procedure.SIGNATURE : Joe Aguilar MD PATIENT NAME: Sofie AdrianDATE: January 09, 2017 : 11:50 AM PAGER/CONTACT #: [facility] APTTon 01-09-2017 aPTT 28.1 s Normal 23.0-32.4 [facility] Comment on above: Result Comment: Unfractionated [...] laboratory APTT reagent in use throughout the [facility]. Performed By: #### P T, PTT ####[facility] [place], [place] [phone] aPTT 26.8 s Normal 23.0-32.4 [facility] Comment on above: Result Comment: Unfractionated [...] laboratory APTT reagent in use throughout the [facility]. Performed By: #### C BC, PT, PTT, BMP, MG1, PHOS ####[facility] [place], [place] [phone] aPTT 27.7 s Normal 23.0-32.4 [facility] Comment on above: Result Comment: Unfractionated [...] laboratory APTT reagent in use throughout the [facility]. Performed By: #### C BC, PT, PTT, BMP, MG1, PHOS ####[facility] [place], [place] [phone] BRIEF OP NOTon 01-09-2017 BRIEF OP NOT HNO ID: [id number] thor: Tanner CristinasService: General SurgeryAuthor Type: ResidentType: Brief Op NoteFiled: 01/09/2017 2:26 PMNote Text:BRIEF OPERATIVE / PROCEDURE NOTELOG ID: [id number]/Procedure Date: 01/09/2017Incision/Procedure Start Time: 12:48 PMIncision Close/Procedure End Time: 2:08 PMSurgeon(s)/Proceduralist(s) and Hospital Technician(s):Surgeon(s) and Role:Panel 1: * Adis Landeros - [...] January 09, 2017 : 2:24 PM PHONE: [phone] Normal [facility] Basic Metabolic Panlon 01-09 Anion gap 18 mmol/L Normal - [facility] Comment on above: Performed By: #### CBC, PT, PTT, BMP, MG 1, PHOS ####[facility] [place], [place] [phone] Calcium 8.6 mg/dL Normal 8.5-10.5 [facility] Comment on above: Performed By: #### CBC, PT, PTT, BMP, MG 1, PHOS ####[place] [address] Chloride 102 mmol/L Normal 98-110 [facility] Comment on above: Performed By: #### CBC, PT, PTT, BMP, MG 1, PHOS ####[place] [address] CO2 18 mmol/L Low 23-32 [facility] Comment on above: Performed By: #### CBC, PT, PTT, BMP, MG 1, PHOS ####[place] [address] Creatinine 0.58 mg/dL Low 0.70-1.40 [facility] Comment on above: Performed By: #### CBC, PT, PTT, BMP, MG 1, PHOS ####[place] [address] eGFR (non-black) mL/min/{1.73_m2} Normal >60 [facility] Comment on above: Performed By: #### CBC, PT, PTT, BMP, MG 1, PHOS ####[place] [address] Glucose mass conc 171 mg/dL High 65-100 [facility] Comment on above: Performed By: #### CBC, PT, PTT, BMP, MG 1, PHOS ####[place] [address] Potassium molar conc 3.8 mmol/L Normal 3.5-5.0 [facility] Comment on above: Performed By: #### CBC, PT, PTT, BMP, MG 1, PHOS ####[place] [address] Sodium 138 mmol/L Normal 132-148 [facility] Comment on above: Performed By: #### CBC, PT, PTT, BMP, MG 1, PHOS ####[place] [address] Urea nitrogen 12 mg/dL Normal 8-25 [facility] Comment on above: Performed By: #### CBC, PT, PTT, BMP, MG 1, PHOS ####[place] [address] Anion gap 16 mmol/L Normal 9-18 [facility] Comment on above: Performed By: #### CBC, PT, PTT, BMP, MG 1, PHOS ####[place] [address] Calcium 8.8 mg/dL Normal 8.5-10.5 [facility] Comment on above: Performed By: #### CBC, PT, PTT, BMP, MG 1, PHOS ####[place] [address] Chloride 100 mmol/L Normal 98-110 [facility] Comment on above: Performed By: #### CBC, PT, PTT, BMP, MG 1, PHOS ####[place] [address] CO2 20 mmol/L Low 23-32 [facility] Comment on above: Performed By: #### CBC, PT, PTT, BMP, MG 1, PHOS ####[place] [address] Creatinine 0.54 mg/dL Low 0.70-1.40 [facility] Comment on above: Performed By: #### CBC, PT, PTT, BMP, MG 1, PHOS ####[place] [phone] eGFR (non-black) mL/min/{1.73_m2} Normal >60 [facility] Comment on above: Performed By: #### CBC, PT, PTT, BMP, MG 1, PHOS ####[place] [phone] Glucose mass conc 159 mg/dL High 65-100 [facility] Comment on above: Performed By: #### CBC, PT, PTT, BMP, MG 1, PHOS ####[address] [phone] Potassium molar conc 3.8 mmol/L Normal 3.5-5.0 [facility] Comment on above: Performed By: #### CBC, PT, PTT, BMP, MG 1, PHOS ####[address] [phone] Sodium 136 mmol/L Normal 132-148 [facility] Comment on above: Performed By: #### CBC, PT, PTT, BMP, MG 1, PHOS ####[address] [phone] Urea nitrogen 13 mg/dL Normal 8-25 [facility] Comment on above: Performed By: #### CBC, PT, PTT, BMP, MG 1, PHOS ####[address] [phone] CASE MANAGEMon 01-09-2017 CASE MANAGEM HNO ID: [id number] thor: Kathryn Coley (Lsw)rvice: Care ManagementAuthor Type: Social WorkerType: Care Mgt Progress NoteFiled: 01/09/2017 3:10 PMNote Text:CARE MANAGEMENT PROGRESS NOTESERVICE DATE: 01/09/2017SERVICE TIME: 3:00 PM LOS: 1 dayNeeds Prior to Discharge: To Be Determined;Other: See Comment (CMSWattempted initial assessment process. Pt currently at surgery. CM willtry again another time. )SIGNATURE: NYASIA Higgins PATIENT NAME: Sofie AdrianDATE: January 09, 2017 : 3:10 PM PAGER/CONTACT #: [phone] Normal [facility] CBCon 01-09-2017 Erythrocyte distribution width Auto Ratio (RBC) 12.4 % Normal 11.5-15.0 [facility] Comment on above: Performed By: #### CBC, PT, PTT, BMP, MG 1, PHOS ####[address] [phone] Erythrocytes (RBC) 3.82 10*6/uL Low 3.90-5.20 [facility] Comment on above: Performed By: #### CBC, PT, PTT, BMP, MG 1, PHOS ####[place] [address] Hematocrit (HCT) 37.2 % Normal 36.0-46.0 [facility] Comment on above: Performed By: #### CBC, PT, PTT, BMP, MG 1, PHOS ####[place] [address] Hemoglobin mass conc (Bld) 12.3 g/dL Normal 11.5-15.5 [facility] Comment on above: Performed By: #### CBC, PT, PTT, BMP, MG 1, PHOS ####[place] [address] MCH 32.2 pG Normal 26.0-34.0 [facility] Comment on above: Performed By: #### CBC, PT, PTT, BMP, MG 1, PHOS ####[place] [address] MCHC mass conc (RBC) 33.1 g/dL Normal 30.5-36.0 [facility] Comment on above: Performed By: #### CBC, PT, PTT, BMP, MG 1, PHOS ####[place] [address] MCV 97.4 fL Normal 80.0-100.0 [facility] Comment on above: Performed By: #### CBC, PT, PTT, BMP, MG 1, PHOS ####[place] [address] Platelet mean volume (PMV) 11.0 fL Normal 9.0-12.7 [facility] Comment on above: Performed By: #### CBC, PT, PTT, BMP, MG 1, PHOS ####[place] [address] Platelets 180 10*3/uL Normal 150-400 [facility] Comment on above: Performed By: #### CBC, PT, PTT, BMP, MG 1, PHOS ####[place] [address] WBC (Leukocytes) 13.84 10*3/uL High 3.70-11.00 [facility] [place] Comment on above: Performed By: #### CBC, PT, PTT, BMP, MG 1, PHOS ####[place] [address] Erythrocyte distribution width Auto Ratio (RBC) 12.7 % Normal 11.5-15.0 [facility] Comment on above: Performed By: #### CBC, PT, PTT, BMP, MG 1, PHOS ####[place] [address] Erythrocytes (RBC) 3.80 10*6/uL Low 3.90-5.20 [facility] Comment on above: Performed By: #### CBC, PT, PTT, BMP, MG 1, PHOS ####[place] [address] Hematocrit (HCT) 36.7 % Normal 36.0-46.0 [facility] Comment on above: Performed By: #### CBC, PT, PTT, BMP, MG 1, PHOS ####[place] [address] Hemoglobin mass conc (Bld) 12.4 g/dL Normal 11.5-15.5 [facility] Comment on above: Performed By: #### CBC, PT, PTT, BMP, MG 1, PHOS ####[place] [address] MCH 32.6 pG Normal 26.0-34.0 [facility] Comment on above: Performed By: #### CBC, PT, PTT, BMP, MG 1, PHOS ####[place] [address] MCHC mass conc (RBC) 33.8 g/dL Normal 30.5-36.0 [facility] Comment on above: Performed By: #### CBC, PT, PTT, BMP, MG 1, PHOS ####[address] [phone] MCV 96.6 fL Normal 80.0-100.0 [facility] Comment on above: Performed By: #### CBC, PT, PTT, BMP, MG 1, PHOS ####[address] [phone] Platelet mean volume (PMV) 11.1 fL Normal 9.0-12.7 [facility] Comment on above: Performed By: #### CBC, PT, PTT, BMP, MG 1, PHOS ####[address] [phone] Platelets 186 10*3/uL Normal 150-400 [facility] Comment on above: Performed By: #### CBC, PT, PTT, BMP, MG 1, PHOS ####[address] [phone] WBC (Leukocytes) 10.34 10*3/uL Normal 3.70-11.00 [facility] [place] Comment on above: Performed By: #### CBC, PT, PTT, BMP, MG 1, PHOS ####[address] [phone] CONSULTon 01-09-2017 CONSULT HNO ID: [id number] thor: Araceli Gamez (Rn) RAJ Mcneilervice: Wound/OstomyAuthor [...] marked with single usesurgical marker.Assessment/Plan-stoma site marking complete-hotel staff member to monitor daniel and place Tegaderm clear transparent dressingsas needed-Plan per surgical team, will remain available as needed.To contact Wound/Ostomy Care, please call the Wound Care Hotline at [phone] leave a message.SIGNATURE: Araceli Mcneil RN PATIENT NAME: Sofie AdrianDATE: January 09, 2017 : 4:00 PM PAGER/CONTACT #: [phone] Normal [facility] HISTORY PHYSICALon HISTORY PHYSICAL HNO ID: [id number] thor: TREY Wolfe Reservice: ColorectalAuthor Type: ResidentType: [...] by mouth once daily. Disp: Rfl: 09/18/2015 [id number] (PRILOSEC) 40 mg capsule Take 1 capsule by mouth once daily.(Patient taking differently: Take 40 mg by mouth twice daily.) Disp: 30capsule Rfl: 4 09/19/2015 at 0700METOPROLOL TARTRATE ORAL Take 25 mg by mouth. Disp: Rfl: 09/19/2015 [id number] HCl 20 mg tablet Take 40 mg [...] or skindiscoloration. Good capillary refill., No ulcersNEURO: IEo0Ieawvka Vitals for the past 24 hrs: BP Temp Temp src Pulse Resp [id number]/08/17 2301 151/92 36.4 ?C (97.6 ?F) Oral [...] LLQ ttp. S.Lactate 1. Concern forSBO.-[facility]-NPO, NGT-IVF @ 100 ml/hr-strict I AND O-Pain meds: tylenol and morphine-Zofran available PRN-KUB stat to confirm NGT placement-Lab, type and screen, stat-DVT prophylaxis: SCD and SQHSIGNATURE: Eloise Langley MD PATIENT NAME: Sofie AdrianDATE: January 08, 2017 : 11:15 PM PAGER/CONTACT #: [phone] Normal [facility] Magnesiumon 01-09-2017 Magnesium 1.7 mg/dL Normal 1.7-2.6 [facility] Comment on above: Performed By: #### CBC, PT, PTT, BMP, MG 1, PHOS ####[place] [phone] Magnesium 1.9 mg/dL Normal 1.7-2.6 [facility] Comment on above: Performed By: #### CBC, PT, PTT, BMP, MG 1, PHOS ####[place] [address] NURSING PROGon 01-09-2017 NURSING PROG HNO ID: [id number] thor: Rosi RennerRn) RAJ Careyervice: (none)Author Type: Registered NurseType: Nursing Progress NoteFiled: 01/09/2017 10:16 AMNote Text: Nursing Progress NotePatient Name: Sofie AdrianMRN: [id number] Location: [place] [address]/ZW-PK3G-83 _Daily Note:pt is axox3, on room air, up with assist. Ng tube in place.Plan for surgery today. No needs voiced at this time. Will continue tomonitor the patient. Updated daughter on patient's status, ok'd bypatient.[address] [place], [place] [address]. Updated TAXICAB COORDINATOR medication list and also c/o indigestion.Thanks. KADEN Aranda [id number] note was completed by: Rosi Carey RN [facility] NURSING PROG HNO ID: [id number] thor: Melissa RennerRnMaxine Pond, RNService: (none)Author Type: Registered NurseType: Nursing Progress NoteFiled: 01/09/2017 5:07 AMNote Text: Nursing Progress NotePatient Name: Sofie AdrianMRN: [id number] Location: [place] [address]/RG-[id number] _ 0400 Patient complaining of abdominal pain 02/03 moaning at intervalsand holding her stomach. Patient last medicated with Dilaudid 0.5 mg [id number]. Patient states it doesn't last very long. Text message sent toSurgical resident to notify.0415 Patient medicated with oxycodone 5 mg tablet as instructed bysurgical resident. NG clamped when patient took tablet.0515 NG reconnected to low suction. Patient states the Oxycodone noteffective for pain.This note was completed by: Melissa Pond RN [facility] NURSING PROG HNO ID: [id number] thor: Melissa Saucedo (Rn) Salty, RNService: (none)Author Type: Registered NurseType: Nursing Progress NoteFiled: 01/08/2017 11:01 PMNote Text: Nursing Progress NotePatient Name: Sofie AdrianMRN: [id number] [address]: [address]QC7X[address] _Transfer Note:[facility] Actions taken: No futher actions taken at this time. Willcontinue to monitor and check with patient. Call placed to surgicalresident for orders.This note was completed by: Melissa Pond RN [facility] OPERATIVE NOon 01-09-2017 OPERATIVE NO HNO ID: [id number] thor: Adis Bryante: General SurgeryAuthor Type: PhysicianType: Operative ReportFiled: 01/12/2017 2:34 PMNote Text:[facility] - Operative ReportSOFIE ADRIAN CDOB: 1955 AGE: 61 SEX: FMRN: [id number] ACCTNUM: [id number] SVC: INTM LOCATION: [id number] PHYSICIAN: Adis Landeros M.D.DATE OF PROCEDURE: 01/09/2017PREOPERATIVE DIAGNOSIS: Small bowel obstruction.POSTOPERATIVE DIAGNOSIS: Same. Strangulated internal hernia.NAME OF OPERATION: Diagnostic laparoscopy and lysis of adhesions.SURGEON: Adis Landeros M.D.STORY TELLER: Tanner Ordoñez M.D.ANESTHESIA: General.ESTIMATED BLOOD LOSS: Minimal.COMPLICATIONS: [...] we placed a drain in the pelvis, g54-Khvdul drain made to mature through the lower 5-mm port on the rightside of the abdomen. The drain was secured to the skin using 3-0nylon, and the subumbilical fascia was approximated iqilxczmima-mo-zsbuc 0 Polysorb suture. All port sites were [...] was presentthrough the entire operation.Adis Landeros M.D.General SurgeryDA:[id number]: 01/09/2017 15:07:23T: 01/10/2017 01:35:34Job #: [id number] [facility] PROGRESSon 01-09-2017 Cholesterol HNO ID: [id number] thor: Tanner Dollice: General SurgeryAuthor Type: ResidentType: Progress NotesFiled: 01/09/2017 6:52 PMNote Text:Post-operative checkSubjective: No acute events. Pain controlled. No nausea/vomiting.Objective:Blo od pressure 112/66, pulse 90, temperature 36.9 ?C (98.4 ?F),temperature source Oral, resp. rate 17, height 154.9 cm (5' 1 ), ojxhyy90.1 kg (141 lb 6.4 oz), SpO2 97 %.General: NAD, alert, orientedLungs: nonlabored breathingAbdomen: soft, nondistended, periincisional and left sided tenderness,incisions C/D/IExtremities: warm, well perfusedAssessment and plan:61 year old female with SBO and strangulated internal hernia s/plaparoscopic lysis of adhesions. Doing well- NPO with IV fluids- NG to LIWS- Morphine CAR PILOT, tylenol for pain- SCD's and SQH for DVT prophylaxis- Encourage incentive spirometry and ambulationTanner Ordoñez MDGeneuniversity hospitals [facility] Surgery ResidentPager [phone] [facility] PROGRESS HNO ID: [id number] thor: Adis Torrez: ColorectalAuthor Type: PhysicianType: Progress NotesFiled: 01/09/2017 12:21 PMNote Text:Sofie [id number] SERVICE: Teresa HollingsworthSUBJECTIVEPatient is in a lot of pain, writhing in her bedNG in place, with moderately thick outputNo flatus no BMOBJECTIVEI/O:Date 01/08/17 07 - 01/09/17 0659 01/09/17 07 - 01/10/17 0659Shift 9632-0559 0342-0080 6733-2589 24 Hour Total 7579-2959 0307-75505459-9395 24 Hour TotalINTAKE IV 524 524 NS [...] lb 6.4 oz) SpO2 94% BMI 26.72 kg/x5GOEUXTW: Alert, no distress, cooperativeLUNGS: Lungs clear to auscultation, Good diaphragmatic excursionCARDIAC: Normal S1 and S2; no rubs, murmurs, or gallopsABDOMEN: Abdomen soft, moderately distended, diffusely tender with MPT inLLQ, BS increased, No masses or organomegaly, NG tube with bileous outputEXTREMITIES: Extremities normal, no deformities, edema, clubbing or skindiscoloration.NEURO: MQe7Cqic:Current Facility-Administered Medications:piperacillin-tazo bactam 3.375 g in dextrose (iso-osmotic) 50 mL (ZOSYN)3.375 g INTRAVENOUS q 6 H Bessie S (Pa) Miglionicomorphine CAR PILOT 1 mg/mL in NaCl 0.9% 100 mL INTRAVENOUS CONTINUOUS Bessie S(Pa) Miglionicomorphine 1 mg/mL CAR PILOT CLINICIAN DOSE 1 mg 1 mg INTRAVENOUS q 6 H PRNMelissa S (Pa) MiglionicoFLUoxetine 40 mg cap(s) (PROzac) 40 mg ORAL DAILY Alejoned (Res) MD Korin40 mg at 01/09/17 0757NaCl 0.9% iv infusion 125 mL/hr INTRAVENOUS CONTINUOUS Bessie S (Pa)Miglionico Last Rate: 125 mL/hr at 01/09/17 0755 125 mL/hr at 330453cfostdznfve 4 mg tab(s) (ZOFRAN) 4 mg ORAL [...] Diet : NPO- Pain management: Start Morphine CAR PILOT, Tylenol- Nausea management: Zofran- DVT prophylaxis: Heparin- Trujillo status: Please place trujillo for better hemodynamic monitoring- Encourage IS and ambulation- Strict IANDOs- Seen and discussed with senior resident, will discuss with Montez Weathers MD MPHPGY1, Department of General SurgeryPager: [facility]2016 9:12 AMSurgery attendingI have seen and [...] related to surgeryand/or anesthesia.Adis Landeros, Evan Landeros, [facility] 12:20 PM Normal [facility] Phosphoruson 01-09-2017 Phosphate 3.0 mg/dL Normal 2.5-4.5 [facility] Comment on above: Performed By: #### CBC, PT, PTT, BMP, MG 1, PHOS ####[address] [phone] Phosphate 3.9 mg/dL Normal 2.5-4.5 [facility] Comment on above: Performed By: #### CBC, PT, PTT, BMP, MG 1, PHOS ####[address] [phone] Protimeon 01-09-2017 INR Coag RelTime (Bld) 1.1 {INR} Normal 0.9-1.3 [facility] Comment on above: Result Comment: Vitamin K Antagonist (VK A) Therapeutic Range: INR 2 to 3 (Target INR of 2.5)Note: For patients treated with VKA drugs, such as warfarin, the [place] [employer] 2012 Guideline recommends [...] al. Chest 2012, 141:7S-47SNishmarielena LIU, et al. [facility] 2017, 70: 252-289 Performed By: #### P T, PTT ####[place] [phone] PT Sec 11.6 sec Normal 9.7-13.0 [facility] Comment on above: Performed By: #### PT, PTT ####[place] [phone] INR Coag RelTime (Bld) 1.1 {INR} Normal 0.9-1.3 [facility] Comment on above: Result Comment: Vitamin K Antagonist (VK A) Therapeutic Range: INR 2 to 3 (Target INR of 2.5)Note: For patients treated with VKA drugs, such as warfarin, the [place] [employer] 2012 Guideline recommends [...] al. Chest 2012, 141:7S-47SNishmarielena LIU, et al. [facility] 2017, 70: 252-289 Performed By: #### C BC, PT, PTT, BMP, MG1, PHOS ####[address] [phone] PT Sec 11.4 sec Normal 9.7-13.0 [facility] Comment on above: Performed By: #### CBC, PT, PTT, BMP, MG 1, PHOS ####[place] [phone] [place] [phone] INR Coag RelTime (Bld) 1.1 {INR} Normal 0.9-1.3 [facility] Comment on above: Result Comment: Vitamin K Antagonist (VK A) Therapeutic Range: INR 2 to 3 (Target INR of 2.5)Note: For patients treated with VKA drugs, such as warfarin, the [place] [employer] 2012 Guideline recommends [...] al. Chest 2012, 141:7S-47SNishmarielena RA, et al. J[facility] 2017, 70: 252-289 Performed By: #### C BC, PT, PTT, BMP, MG1, PHOS ####[place] [phone] PT Sec 11.1 sec Normal 9.7-13.0 [facility] Comment on above: Performed By: #### CBC, PT, PTT, BMP, MG 1, PHOS ####[place] [phone] Type and Screenon 01-09-2017 ABO/RH(D) Negative Normal [facility] Comment on above: Performed By: #### TSCR ####[place] [phone] Antibody Screen Negative Normal [facility] Comment on above: Performed By: #### TSCR ####[place] [phone] Urinalysis with Microscopico n 01-09-2017 Bilirubin, Urine Negative Normal Negative [facility] Comment on above: Performed By: #### UAWMIC ####[facility] [id number] [place] [phone] Comments SEE COMMENT Normal [facility] Comment on above: Result Comment: Microscopic Examination Performed Performed By: #### U AWMIC ####[place] [address] Erythrocytes (RBC) Rare Critically abnormal Negative [facility] Comment on above: Performed By: #### UAWMIC ####[facility] [address] [place] [address] Hemoglobin mass conc (Bld) Negative Normal Negative [facility] Comment on above: Performed By: #### UAWMIC ####[facility] yciipev51739[place] [address] Leukest Trace Critically abnormal Negative [facility] Comment on above: Performed By: #### UAWMIC ####[facility] jhclmii81317[place] [address] pH of blood 6.0 [pH] Normal 5.0-8.0 [facility] Comment on above: Performed By: #### UAWMIC ####[place] [address] Protein, Urine Negative Normal Negative [facility] Comment on above: Performed By: #### UAWMIC ####[facility] [id number] [address] Specific [place], Ur 1.020 Normal 1.005-1.030 [facility] Comment on above: Result Comment: Result checked and verif ied Performed By: #### U AWMIC ####[place] [address] Urine, clarity Hazy Critically abnormal Clear [facility] Comment on above: Performed By: #### UAWMIC ####[facility] [id number] [address] Urine, color Yellow Normal Yellow [facility] Comment on above: Performed By: #### UAWMIC ####[facility] [id number] [place] [address] Urine, epithelial cells in sediment SEE COMMENT Critically abnormal Negative [facility] Comment on above: Result Comment: RareSquamous Epithelial Cells Performed By: #### U AWMIC ####[facility] [place] [address] Urine, glucose presence Negative Normal Negative [facility] Comment on above: Performed By: #### UAWMIC ####[facility] [id number] [place] [address] Urine, ketones presence Negative Normal Negative [facility] Comment on above: Performed By: #### UAWMIC ####[facility] [id number] [place] [address] Urine, mucus presence in sediment Present Normal [facility] Comment on above: Performed By: #### UAWMIC ####[facility] [id number] [place] [phone] Urine, nitrite presence Negative Normal Negative [facility] Comment on above: Performed By: #### UAWMIC ####[facility] [id number] [place] [address] Urine, urobilinogen <2.0 Normal <2.0 [facility] Comment on above: Performed By: #### UAWMIC ####[facility] plwbwlo72081 [place] [address] WBC (Leukocytes) 5-10 Critically abnormal Negative [facility] Comment on above: Performed By: #### UAWMIC ####[facility] [id number] [place] [address] XR ABDOMEN 1V SUPINEon 01-09 XR ABDOMEN [...] loops of small bowel in the upper abdomen.Vocational Education Professional: Lucky Pai Transcribe Date/Time: Jan 09 2017 12:19ADictated by : GLENN MARTINEZ MDThilois examination was interpreted and the report reviewed and electronically signed by: GLENN MARTINEZ MD on Jan 09 2017 12:20AM [id number] [facility] XR CHEST 1V FRONTALon 2016 XR CHEST [...] volumes with suggestion of mild left base atelectasis.Vocational Education Professional: Lucky Pai Transcribe Date/Time: Jan 09 2017 6:10ADictated by : Sherie GIANG examination was interpreted and the report reviewed and electronically signed by: SHAAN RADER MD on Jan 09 2017 6:13AM [id number] [facility] HOSPon 01-08-2017 HOSP Patient:Sofie Adrian CMRN: Height:5' [...] g in dextrose (iso-osmotic) 50 mL (ZOSYN)morphine CAR PILOT 1 mg/mL in NaCl 0.9% 100 mLmorphine 1 mg/mL CAR PILOT CLINICIAN DOSE 1 mgFLUoxetine 40 mg cap(s) [...] Signed Nursing Progress NotePatient Name: Sofie AdrianMRN: [id number] Location: [facility]/[id number] _Transfer Note:Patient transferred [facility] room[facility]unit [facility] in stablecondition. Actions taken: No futher actions taken at this time. Will continueto monitor and check with patient. Call placed to vice president of nursing for orders.This note was completed by: Bryan Poon MD, MD 01/09/2017 12:05 AM AddendumHISTORY AND PHYSICAL EXAMINATIONSERVICE DATE: 01/08/2017SERVICE TIME:PRIMARY CARE PHYSICIAN: TIERNEY MercerJECTLIZBETHANNE [facility]GR[facility] COMPLAINT:HPI: This is a 61 year old female PMH HTN, HLD, PUD, COPD and h/o multiple GIbleeding PSH L TAC with DEONNA 08/2015 who presents with sharp cramping abdominalpain that started at Thursday night associtaed with nausea and vomiting. Johnort frequent BM on Thursday (10 times). She [...] 6 hours as needed. Disp: Rfl:09/18/2015 [facility] Indications: OSTEO-BIFLEX Takes 2 PO QD [...] or skindiscoloration. Good capillary refill., No ulcersNEURO: IOq6Fixglak Vitals for the past 24 hrs: BP Temp Temp src Pulse Resp IxQ11901/08/17 2301 151/92 36.4 ?C (97.6 ?F) Oral [...] ttp. S.Lactate 1. Concern for SBO.-Admission to [facility]-NPO, NGT-IVF @ 100 ml/hr-strict I AND O-Pain meds: tylenol and morphine-Zofran available PRN-KUB stat to confirm NGT placement-Lab, type and screen, stat-DVT prophylaxis: SCD and SQHSIGNATURE: Eloise Langley MD PATIENT NAME: Sofie AdrianDATE: January 08, 2017 : 11:15 PM PAGER/CONTACT #: [phone] Anibal Pond, RN, RN 01/09/2017 5:07 AM Addendum Nursing Progress NotePatient Name: Sofie AdrianMRN: [id number] Location: [place] [address]/[id number] _ 0400 Patient complaining of abdominal pain 10/ moaning at intervals andholding her stomach. Patient [...] RNPrevious Brielle Landeros MD 01/09/2017 12:21 PM AddendumSofie [id number] SERVICE: Teresa HollingsworthSUBJECTIVEPatient is in a lot of pain, writhing in her bedNG in place, with moderately thick outputNo flatus no BMOBJECTIVEI/O:Date 01/08/17 07 - 01/09/17 0659 01/09/17 07 - 01/10/17 0659Shift 5293-8964 8859-0053 2750-6547 24 Hour Total 4619-7629 2181-4353 2300-411297 Hour TotalINTAKE IV 524 524 NS 0.9% [...] lb 6.4 oz) SpO2 94% BMI 26.72 kg/i8QBBMBQD: Alert, no distress, cooperativeLUNGS: Lungs clear to auscultation, Good diaphragmatic excursionCARDIAC: Normal S1 and S2; no rubs, murmurs, or gallopsABDOMEN: Abdomen soft, moderately distended, diffusely tender with MPT in LLQ,BS increased, No masses or organomegaly, NG tube with bileous outputEXTREMITIES: Extremities normal, no deformities, edema, clubbing or skindiscoloration.NEURO: JFd3Dxtm:Current Facility-Administered Medications:piperacillin-tazo bactam 3.375 g in dextrose (iso-osmotic) 50 mL (ZOSYN) 3.375 gINTRAVENOUS q 6 H Bessie S (Pa) Miglionicomorphine CAR PILOT 1 mg/mL in NaCl 0.9% 100 mL INTRAVENOUS CONTINUOUS Bessie S (Pa)Miglionicomorphine 1 mg/mL CAR PILOT CLINICIAN DOSE 1 mg 1 mg INTRAVENOUS q 6 H PRN Bessie S(Pa) MiglionicoFLUoxetine 40 mg cap(s) (PROzac) 40 mg ORAL DAILY Eloise (Res) MD Korin 40 mgat 01/09/17 0757NaCl [...] Diet : NPO- Pain management: Start Morphine CAR PILOT, Tylenol- Nausea management: Zofran- DVT prophylaxis: Heparin- Trujillo status: Please place trujillo for better hemodynamic monitoring- Encourage IS and ambulation- Strict IANDOs- Seen and discussed with senior resident, will discuss with staffAkhil Weathers MD MPHPGY1, Department of General SurgeryPager: [facility]2016 9:12 AMSurgery attendingI have seen and [...] and other complications related to surgery and/or anesthesia.Evan Sylvester [facility]2016 12:20 PMPrevious Debby Carey RN, RN 01/09/2017 10:16 AM Addendum Nursing Progress NotePatient Name: Sofie Donald JakeMRN: [id number] Location: [place] [address]/[id number] _Daily Note:pt is axox3, on room air, up with assist. Ng tube in place. Plan forsurgery today. No needs voiced at this time. Will continue to monitor thepatient. Updated daughter on patient's status, ok'd by patient.1016 Jake [place]. Updated TAXICAB COORDINATOR medication list and also c/o indigestion.Thanks. Rosi, KADEN [id number] note was completed by: Rosi Carey, RNPrevious Yoan Aguilar MD 01/09/2017 11:54 AM SignedREGIONAL ANESTHESIOLOGY DAY OF SURGERY NOTEPATIENT NAME: Sofie Donald JakeMRN: [id number]: 1955Procedure(s) (LRB):EXPLORATORY LAPAROTOMY ADULT (N/A)LAPAROSCOPY DIAGNOSTIC (N/A)Surgeon(s):Adis [...] INR 1.1 01/09/2017Creatinine 0.58 01/09/2017EKG:sinus tachycardiaVitals: 3 2 01/09/1711BP: 122/72 146/78 140/73 119/75Pulse: 108 111 [...] otherwise documented in primary service progress notes: [facility] contains updated information obtained within 48 hours of Surgery/Procedure.SIGNATURE: Joe Aguilar MD PATIENT NAME: Sofie AdrianDATE: January 09, 2017 : 11:50 AM PAGER/CONTACT #: [facility] OT-XR KUB 1 VIEW IMPORTon OT-XR KUB 1 VIEW IMPORT Images were obtained outside of [facility] [id number] [facility] SR-CT ABD/PELVIS W CON IMPOR Ton 01-08-2017 SR-CT ABD/PELVIS W CON IMPORT Images were obtained outside of [facility] [id number] [facility] SR-CT ABD/PELVIS WO CON IMPO RTon 01-07-2017 SR-CT ABD/PELVIS WO CON IMPORT Images were obtained outside of [facility] [id number] Vital Signs Date Time Vital Sign Value Performing Clinician Faci lity 10-26-2024 10:38-0400 Body mass index (BMI) [Ratio] 25.09 kg/m2 Rosario Amezquita NP Work Phone: [facility] 10-26-2024 10:38-0400 Body temperature 98.49 [degF] Rosario Amezquita NP Work Phone: [facility] 10-26-2024 10:38-0400 Body weight 53.71 kg Rosario Aichholz [employer] Work Phone: [facility] 10-26-2024 10:38-0400 Diastolic blood pressure 82 mm[Hg] Rosario Aichholz [employer]ULATION [employer]ZZLE[employer] Work Phone: [facility] 10-26-2024 10:38-0400 Heart rate 68 /min Rosario Aichholz [employer] Work Phone: [facility] 10-26-2024 10:38-0400 Respiratory rate 18 /min Rosario Aichholz [employer]ATION [employer]ZZLE[employer] Work Phone: [facility] 10-26-2024 10:38-0400 SaO2% (BldA) [Mass fraction] 97 % Rosario Aichholz [employer]ATION [employer]ZZLE[employer] Work Phone: [facility] 10-26-2024 10:38-0400 Systolic blood pressure 118 mm[Hg] Rosario Aichholz [employer]ULATION [employer]ZZLEMAN Work Phone: [facility] 05-10-2024 15:57-0500 Body height 146.3 cm Rosario Aichholz [employer]LE[employer] Work Phone: [facility] 05-10-2024 15:57-0500 Body mass index (BMI) [Ratio] 25.51 kg/m2 Rosario Aichholz [employer]ATION [employer]ZZLEMAN Work Phone: [facility] 05-10-2024 15:57-0500 Body temperature 98.8 [degF] Rosario Aichholz INSULATION [employer]ZZLEMAN Work Phone: [facility] 05-10-2024 15:57-0500 Body weight 54.61 kg Rosario Aichholz INSULATION NOZZLEMAN Work Phone: [facility] 05-10-2024 15:57-0500 Diastolic blood pressure 78 mm[Hg] Rosario Aichholz [employer]ULATION [employer]ZZLEMAN Work Phone: [facility] 05-10-2024 15:57-0500 Heart rate 84 /min Rosario Aichholz INSULATION NOZZLEMAN Work Phone: [facility] 05-10-2024 15:57-0500 Respiratory rate 19 /min Rosario Aichholz INSULATION NOZZLEMAN Work Phone: [facility] 05-10-2024 15:57-0500 SaO2% (BldA) [Mass fraction] 98 % Rosario Claribelz INSULATION NOZZLEMAN Work Phone: [facility] 05-10-2024 15:57-0500 Systolic blood pressure 108 mm[Hg] Rosario Matiasholz INSULATION NOZZLEMAN Work Phone: [facility] 04-05-2024 13:23-0500 Body height 146.3 cm Rosario Matiasholz INSULATION NOZZLEMAN Work Phone: [facility] 04-05-2024 13:23-0500 Body mass index (BMI) [Ratio] 25.3 kg/m2 Rosario Matiasholz INSULATION NOZZLEMAN Work Phone: [facility] 04-05-2024 13:23-0500 Body temperature 97.59 [degF] Rosario Matiasholz INSULATION NOZZLEMAN Work Phone: [facility] 04-05-2024 13:23-0500 Body weight 54.16 kg Rosario Matiasholz INSULATION NOZZLEMAN Work Phone: [facility] 04-05-2024 13:23-0500 Diastolic blood pressure 76 mm[Hg] Rosario Matiasholz INSULATION NOZZLEMAN Work Phone: [facility] 04-05-2024 13:23-0500 Heart rate 78 /min Rosario Matiasholz INSULATION NOZZLEMAN Work Phone: [facility] 04-05-2024 13:23-0500 Respiratory rate 18 /min Rosario Matiasholz INSULATION NOZZLEMAN Work Phone: [facility] 04-05-2024 13:23-0500 SaO2% (BldA) [Mass fraction] 98 % Rosario Matiasholz INSULATION NOZZLEMAN Work Phone: [facility] 04-05-2024 13:23-0500 Systolic blood pressure 120 mm[Hg] Rosario Aichholz INSULATION NOZZLEMAN Work Phone: [facility] 03-02-2024 14:24-0500 Body height 146.3 cm Rosario Amezquita INSULATION NOZZLEMAN Work Phone: [facility] 03-02-2024 14:24-0500 Body mass index (BMI) [Ratio] 25.39 kg/m2 Rosario Sanfordz INSULATION [employer]ZZLEMAN Work Phone: [facility] 03-02-2024 14:24-0500 Body temperature 98.71 [degF] Rosario Amezquita INSULATION NOZZLEMAN Work Phone: [facility] 03-02-2024 14:24-0500 Body weight 54.34 kg Rosario Amezquita INSULATION NOZZLEMAN Work Phone: [facility] 03-02-2024 14:24-0500 Diastolic blood pressure 84 mm[Hg] Rosario Sanfordz INSULATION NOZZLEMAN Work Phone: [facility] 03-02-2024 14:24-0500 Heart rate 69 /min Rosario Sanfordz INSULATION NOZZLEMAN Work Phone: [facility] 03-02-2024 14:24-0500 Respiratory rate 19 /min Rosario Sanfordz INSULATION NOZZLEMAN Work Phone: [facility] 03-02-2024 14:24-0500 SaO2% (BldA) [Mass fraction] 98 % Rosario Amezquita INSULATION NOZZLEMAN Work Phone: [facility] 03-02-2024 14:24-0500 Systolic blood pressure 122 mm[Hg] Rosario Amezquita INSULATION NOZZLEMAN Work Phone: [facility] 06-11-2023 13:30-0500 Body height 146.3 cm Rosario Sanfordz INSULATION NOZZLEMAN Work Phone: [facility] 06-11-2023 13:30-0500 Body mass index (BMI) [Ratio] 28.9 kg/m2 Rosario Sanfordz INSULATION NOZZLEMAN Work Phone: [facility] 06-11-2023 13:30-0500 Body temperature 97.11 [degF] Rosario Sanfordz INSULATION NOZZLEMAN Work Phone: [facility] 06-11-2023 13:30-0500 Body weight 61.87 kg Rosario Sanfordz INSULATION NOZZLEMAN Work Phone: [facility] 06-11-2023 13:30-0500 Diastolic blood pressure 78 mm[Hg] Rosario Aichholz INSULATION NOZZLEMAN Work Phone: [facility] 06-11-2023 13:30-0500 Heart rate 75 /min Rosario Aichholz INSULATION NOZZLEMAN Work Phone: [facility] 06-11-2023 13:30-0500 Respiratory rate 18 /min Rosario Aichholz INSULATION NOZZLEMAN Work Phone: [facility] 06-11-2023 13:30-0500 SaO2% (BldA) [Mass fraction] 95 % Rosario Barberhholz INSULATION NOZZLEMAN Work Phone: [facility] 06-11-2023 13:30-0500 Systolic blood pressure 122 mm[Hg] Rosario Aichholz INSULATION NOZZLEMAN Work Phone: [facility] Healthcare Encounters Encounter Date Encounter Type Care Provider Facility Start: 11-16-2024 End: 11-18-2024 Clinisync Result Encounter Generic External Data Provider [facility] External Department Unsolicited Start: 11-16-2024 End: 11-18-2024 Clinisync Result Encounter Generic External Data Provider [facility] External Department Unsolicited Start: 10-26-2024 End: 10-26-2024 Patient encounter procedure Rosario Salcedoyuri INSULATION NOZZLEMAN Work Phone: [facility] Comment on above: Medicare annual well ness visit, subsequent (Primary Dx); Major depressive disorder, single episode, in full remission ; Mixed hyperlipidemia ; Hx of opioid abuse ([facility]); Anxiety; Gastroesophageal reflux disease without esophagitis; Encounter for screening mammogram for malignant neoplasm of breast; Chronic bilateral low back pain without sciatica Start: 10-26-2024 End: 10-26-2024 ambulatory ROSARIO MATIASHOLZ Not Available Start: 10-13-2024 End: 10-13-2024 Clinisync Result Encounter Generic External Data Provider [facility] External Department Unsolicited Start: 10-13-2024 End: 10-13-2024 Clinisync Result Encounter Generic External Data Provider [facility] External Department Unsolicited Start: 10-09-2024 End: 10-10-2024 Refill Rosario Amezquita INSULATION NOZZLEMAN Work Phone: [facility] Comment on above: Osteoporosis, post-m enopausal ; Age related osteoporosis, unspecified pathological fracture presence Start: 10-06-2024 End: 10-06-2024 Clinisync Result Encounter Generic External Data Provider [facility] Unsolicited Start: 10-06-2024 End: 10-06-2024 Clinisync Result Encounter Generic External Data Provider [facility] External Department Unsolicited Start: 06-28-2024 End: 06-28-2024 Refill Rosariocatherine Amezquita INSULATION NOZZLEMAN Work Phone: [facility] Comment on above: Chronic bilateral lo w back pain without sciatica Start: 06-28-2024 End: 06-28-2024 Telephone encounter Rosario Amezquita INSULATION NOZZLEMAN Work Phone: [facility] Start: 06-07-2024 End: 06-07-2024 Refill Rosario Bia INSULATION NOZZLEMAN Work Phone: [facility] Comment on above: Age-related osteopor osis without current pathological fracture ([facility] Start: 05-26-2024 End: 05-26-2024 Clinisync Result Encounter Rosario Amezquita INSULATION NOZZLEMAN Work Phone: [facility] Unsolicited Start: 05-26-2024 End: 05-26-2024 Clinisync Result Encounter Rosario Bia INSULATION NOZZLEMAN Work Phone: [facility] Unsolicited Start: 05-14-2024 End: 05-15-2024 Refill Rosario Bia INSULATION NOZZLEMAN Work Phone: [facility] Comment on above: Gastroesophageal ref lux disease without esophagitis Start: 05-10-2024 End: 05-10-2024 Office outpatient visit 15 minutes Rosario Amezquita INSULATION NOZZLEMAN Work Phone: [facility] Comment on above: Viral upper respirat ory tract infection (Primary Dx) Start: 05-10-2024 End: 05-10-2024 ambulatory ROSARIO AICHHOLZ Not Available Start: 05-10-2024 End: 05-10-2024 Bamboo flowsheet Rosario Aichholz INSULATION NOZZLEMAN Work Phone: [facility] Start: 05-10-2024 End: 05-10-2024 Bamboo flowsheet Rosario Aichholz INSULATION NOZZLEMAN Work Phone: [facility] Start: 04-05-2024 End: 04-05-2024 Bamboo flowsheet Rosario Aichholz INSULATION NOZZLEMAN Work Phone: [facility] Start: 04-05-2024 End: 04-05-2024 Bamboo flowsheet Rosario Aichholz INSULATION NOZZLEMAN Work Phone: [facility] Start: 04-05-2024 End: 04-05-2024 Office outpatient visit 25 minutes Rosario Aichholz INSULATION NOZZLEMAN Work Phone: [facility] Comment on above: Pain in both lower e xtremities (Primary Dx); Muscle cramps at night; Vitamin deficiency; Chronic bilateral low back pain without sciatica Start: 04-05-2024 End: 04-05-2024 ambulatory ROSARIO AICHHOLZ Not Available Start: 03-02-2024 End: 03-02-2024 Office outpatient visit 25 minutes Rosario Aichholz INSULATION NOZZLEMAN Work Phone: [facility] Comment on above: Anxiety (Primary Dx) ; Major depressive disorder, single episode, in full remission (CMS/HCC); Overweight (BMI 25.0-29.9); Osteoporosis, post-menopausal (CMS/HCC); Gastroesophageal reflux disease without esophagitis; Heart murmur Start: 03-02-2024 End: 03-02-2024 ambulatory ROSARIO AICHHOLZ Not Available Start: 03-02-2024 End: 03-02-2024 Bamboo flowsheet Rosario Aichholz INSULATION NOZZLEMAN Work Phone: [facility] Start: 03-02-2024 End: 03-02-2024 Bamboo flowsheet Rosario Barbersarayyuri INSULATION NOZZLEMAN Work Phone: [facility] Start: 02-13-2024 End: 02-14-2024 Refill Rosario Aicsarayholz INSULATION NOZZLEMAN Work Phone: [facility] Comment on above: Chronic bilateral lo w back pain without sciatica Start: 01-17-2024 End: 01-18-2024 Refill Rosario Bia INSULATION NOZZLEMAN Work Phone: [facility] Comment on above: Chronic bilateral lo w back pain without sciatica Start: 01-03-2024 End: 01-04-2024 Refill Rosario Barberhholz INSULATION NOZZLEMAN Work Phone: [facility] Comment on above: Anxiety Start: 06-11-2023 Bamboo flowsheet Rosario Bia INSULATION NOZZLEMAN Work Phone: [facility] Start: 06-11-2023 Bamboo flowsheet Rosario Barberhholz INSULATION NOZZLEMAN Work Phone: [facility] Start: 06-11-2023 End: 06-11-2023 Patient encounter procedure Rosario Bia INSULATION NOZZLEMAN Work Phone: [facility] Comment on above: Medicare annual well ness visit, subsequent (Primary Dx); Benign hypertension (CMS/HCC); Osteoporosis, post-menopausal (CMS/HCC); Anxiety; Gastroesophageal reflux disease without esophagitis; Age related osteoporosis, unspecified pathological fracture presence (CMS/HCC); Chronic bilateral low back pain without sciatica; Mixed hyperlipidemia (CMS/HCC) Start: 07-21-2022 End: 07-22-2022 ambulatory [employer] ROSARIO BIA Facility:[facility] Start: 02-12-2022 End: 02-12-2022 ambulatory [employer] ROSARIO AICHHOLZ Facility:[facility] Start: 01-09-2022 End: 01-10-2022 ambulatory [employer] ROSARIO AICASHWINZ Facility:[facility] Start: 01-06-2022 End: 09-13-2022 ambulatory [employer] ROSARIO BARBERSarayQINGZ Facility:[facility] Start: 12-03-2021 End: 12-04-2021 ambulatory MONIQUE CABALLERO BARBERSarayQINGRoland Facility:[facility] Start: 10-18-2021 End: 10-19-[address] JESSICA SAMPSON Facility:[facility] Start: 09-17-2021 End: 09-18-[address] ISAIAH ROJAS Facility:[facility] Start: 08-06-2021 End: 08-07-2021 ambulatory JOCELINE ORTEGA Facility:[facility] Start: 02-04-2017 Ambulatory NATASHA (INSULATION NOZZLEMAN) [facility] Start: 01-09-2017 End: 01-13-2017 Evaluation and management of inpatient [facility] Procedures Date Procedure Procedure Detail Performing Clinician Start: 11-16-2024 SEGMENTAL BLOOD PRESSURE Generic External Data Provider Start: 10-13-2024 XR FOOT LT MIN 3V Gener ic External Data Provider Start: 10-06-2024 XR FOOT RT MIN 3V Gener ic External Data Provider Start: 05-26-2024 XR DEXA AXIAL SKELETON Rosario Bia INSULATION NOZZLEMAN Work Phone: Start: 05-10-2024 Iaadiadoo influenza Gema saucedo Barbersarayyuri INSULATION NOZZLEMAN Work Phone: Start: 08-21-2023 Mammography Rosario Marx rush INSULATION NOZZLEMAN Work Phone: Start: 07-21-2022 Mammography Rosario queenroland INSULATION NOZZLEMAN Work Phone: Start: 10-20-2021 Antibody screen Comment on above: Order Comment: Speci men Type: BLOOD SPECIMEN Ordering Facility: [facility] Address: [address] [place], [place] [address] Performed By: #### T SCR #### CC [facility]LOOD [facility] CLIA [id number] [address] [place] [address] OF [facility] Plan of Treatment Date Care Activity Detail Author Start: 11-01-2025 End: 11-01-2025 Patient encounter procedure 11/01/2025 10:30 AM EDT Office Visit [facility] [address] [place] [address] Rosario Amezquita, ANSELMO [address] [place] [phone] [facility] Start: 10-26-2025 Medicare Annual Wellness (AWV) Medicare Annual Wellness (AWV) [facility] Start: 05-02-2025 End: 05-02-2025 Patient encounter procedure 05/02/2025 10:30 AM EST Office Visit [facility] [address] [place] [address] Rosario Amezquita, INSULATION NOZZLEMAN [address] [place] [phone] [facility] Start: 12-26-2024 Influenza vaccination Influenza Vacc ine (#1) [facility] Start: 10-26-2024 End: 12-27-2025 MG Breast - bilateral Screening Bilateral screening mammogram Imaging Routine Encounter for screening mammogram for malignant neoplasm of breast Expected: 10/26/2024 (Approximate), Expires: 12/27/2025 [facility] Work Phone: Comment on above: Expected: 10/26/2024 (Approximate), Expires: 12/27/2025 Start: 10-26-2024 End: 10-26-2024 Patient encounter procedure 10/26/2024 10:30 AM EDT [facility] [address] [place] [address] Rosario Amezquita, ANSELMO [address] [place] [phone] [facility] Start: 08-20-2024 Screening for malignant neoplasm of breast Mammogram [facility] Start: 06-16-2024 End: 06-16-2024 Patient encounter procedure 06/16/2024 10:30 AM EST Office Visit [facility] [address] [place] [phone] Roasrio Amezquita, INSULATION NOZZLEMAN [address] [place] [phone] [facility] Start: 06-11-2024 Medicare Annual Wellness (AWV) Medicare Annual Wellness (AWV) [facility] Start: 05-10-2024 End: 05-10-2024 Patient encounter procedure 05/10/2024 4:00 PM EST Office Visit [facility] [address] [place] [address] Rosario Amezquita, INSULATION NOZZLEMAN [address] [place] [phone] Arrived [facility] Comment on above: Arrived Start: 05-09-2024 End: 05-09-2024 Patient encounter procedure 05/09/2024 1:40 PM EST Office Visit [facility] [address] [place] [address] Rosario Amezquita, INSULATION NOZZLEMAN [address] [place] [phone] [facility] Start: 04-05-2024 End: 04-05-2025 Cobalamin (Vitamin B12) [Mass/volume] in Serum or Plasma Vitamin B12 Lab Routine Vitamin deficiency Expected: 04/05/2024 (Approximate), Expires: 04/05/2025 [facility] Work Phone: Comment on above: Expected: 04/05/2024 (Approximate), Expires: 04/05/2025 Start: 04-05-2024 End: 04-05-2025 Creatine kinase [Enzymatic activity/volume] in Serum or Plasma CK Lab Routine Muscle cramps at night Expected: 04/05/2024 (Approximate), Expires: 04/05/2025 [facility] Healthcare Comment on above: Expected: 04/05/2024 (Approximate), Expires: 04/05/2025 Start: 04-05-2024 End: 04-05-2025 Magnesium [Mass/volume] in Serum or Plasma Magnesium Lab Routine Muscle cramps at night Expected: 04/05/2024 (Approximate), Expires: 04/05/2025 [facility] Comment on above: Expected: 04/05/2024 (Approximate), Expires: 04/05/2025 Start: 04-05-2024 End: 04-05-2024 Patient encounter procedure 04/05/2024 1:20 PM EST Office Visit [facility] [address] [place] [address] Rosario Amezquita, ANSELMO [address] [place] [phone] Arrived [facility] Comment on above: Arrived Start: 03-02-2024 End: 03-02-2024 Patient encounter procedure 03/02/2024 2:20 PM EST Office Visit [facility] [address] [place] [address] Rosario Amezquita, ANSELMO [address] [place] [phone] Overweight (BMI 25.0-29.9) (Primary Dx); Major depressive disorder, single episode, in full remission (CMS/HCC); Anxiety; Osteoporosis, post-menopausal (CMS/HCC); Gastroesophageal reflux disease without esophagitis [facility] Comment on above: Overweight (BMI 25.0 -29.9) (Primary Dx); Major depressive disorder, single episode, in full remission (CMS/HCC); Anxiety; Osteoporosis, post-menopausal (CMS/HCC); Gastroesophageal reflux disease without esophagitis Start: 02-29-2024 End: 02-29-2024 Patient encounter procedure 02/29/2024 1:40 PM EST Office Visit [facility] [address] [place] [address] Rosario Amezquita, INSULATION NOZZLEMAN [address] [place] [phone] [facility] Start: 02-09-2024 End: 02-09-2024 Patient encounter procedure 02/09/2024 1:00 PM EDT Office Visit [facility] [address] [place] [address] Rosario Amezquita, INSULATION NOZZLEMAN [address] [place] [phone] [facility] Start: 12-27-2023 Influenza vaccination Influenza Vacc ine (#1) [facility] Start: 10-12-2023 End: 10-12-2023 Patient encounter procedure 10/12/2023 2:00 PM EDT Office Visit [facility] [address] [place] [address] Rosario Amezquita, INSULATION NOZZLEMAN [address] [place] [phone] [facility] Start: 07-22-2023 Screening for malignant neoplasm of breast Mammogram [facility] Start: 06-11-2023 End: 06-11-2023 Patient encounter procedure 06/11/2023 1:20 PM EST Office Visit [facility] [address] [place] [address] Rosario Amezquita, INSULATION NOZZLEMAN [address] [place] [phone] Arrived [facility] Comment on above: Arrived Start: 1955 Medicare Annual Wellness (AWV) Medicare Annual Wellness (AWV) [facility] Immunizations Immunization Date Immunization Notes Care Provider Fa cili 02-03-2024 influenza, high dose seasonal, preservative-free Rosario Amezquita INSULATION NOZZLEMAN Work Phone: [facility] 02-03-2024 Pneumococcal Conjuga te PCV 20 Rosario Aichholz INSULATION NOZZLEMAN Work Phone: [facility] 02-03-2024 influenza virus vacc ine, unspecified formulation Rosario Aichholz INSULATION NOZZLEMAN Work Phone: [facility] 03-18-2023 Influenza, Seasonal, Quadrivalent, Adjuvanted Rosario Aichholz INSULATION NOZZLEMAN Work Phone: [facility] 03-18-2023 influenza virus vacc ine, unspecified formulation Rosario Aichholz INSULATION NOZZLEMAN Work Phone: [facility] 07-28-2022 zoster vaccine recombinant L donya Aichholz INSULATION NOZZLEMAN Work Phone: [facility] 05-28-2022 zoster vaccine recombinant L donya Aichholz INSULATION NOZZLEMAN Work Phone: [facility] 03-25-2021 influenza, injectabl e, quadrivalent, preservative free Rosario Aichholz INSULATION NOZZLEMAN Work Phone: [facility] 02-03-2017 influenza virus vacc ine, unspecified formulation Rosario Aichholz INSULATION NOZZLEMAN Work Phone: [facility] 04-01-2013 influenza, seasonal, injectable Rosario Aichholz INSULATION NOZZLEMAN Work Phone: [facility] 01-25-2013 influenza, seasonal, injectable Rosario Aichholz INSULATION NOZZLEMAN Work Phone: [facility] 01-25-2013 pneumococcal polysaccharide vaccine, 23 valent Rosario Aichholz INSULATION NOZZLEMAN Work Phone: [facility] 01-29-2012 influenza, seasonal, injectable Rosario Aichholz INSULATION NOZZLEMAN Work Phone: [facility] 01-29-2012 pneumococcal polysaccharide vaccine, 23 valent Rosario Aichholz INSULATION NOZZLEMAN Work Phone: [facility] Payers Date Payer Category Payer Medicare [employer] MEDICARE ADVANTAGE [facility] MEDICARE ADVANTAGE [id number] 2023-Present [address] [place] [address] [id number] 2023 Medicare (Managed Care) VIDAL [employer] ADVANTAGE [id number] 2023 Medicare [id number] 1959 Medicaid [id number] 1959 Medicare [id number] 1959 Private Health Insurance CLI [id number] 1955 Unknown [id number]. 593 1955 Unknown [id number] [id number]. 593 1955 Unknown [id number] [id number]. 593 1955 Unknown [id number] [id number]. 593 1955 Unknown [id number] [id number]. 593 1955 Unknown [id number] [id number]. 593 1955 Unknown [id number] [id number]. 593 1955 Unknown [id number] [id number]. 593 1955 Unknown [id number] [id number]. 1259 1955 Unknown [id number] [id number]. 1259 1955 Unknown [id number] [id number]. 1259 1955 Unknown [id number]. 1259 Social History Date Type Detail Facility Start: 04-29-2023 Tobacco smoking status NHIS Ex-smoke r [facility] History of tobacco use Current smoker [facility] History of tobacco use Cigarette Smoker [facility] Start: 04-29-2023 Tobacco use and exposure Smoke less tobacco non-user [facility] Start: 06-11-2023 End: 10-26-2024 Alcohol intake Lifetime non-drinker (finding) [facility] Start: 06-02-2023 End: 10-26-2024 History of Social function [facility] Start: 06-02-2023 End: 10-26-2024 Humiliation, Afraid, Rape, and Kick questionnaire [HARK] [...] Sex Assigned At Not on file [facility] Functional Status Date Assessment Result Facility 10-26-2024 Patient Health Quest ionnaire 2 item (PHQ-2) [Reported] [facility] Clinical Notes 09-17-2021 to 10-26-2024 TEMO STRICKLAND - 10/26/2024 10:30 AM Yung Amezquita, INSULATION NOZZLEMAN - 10/26/2024 10:30 AM Yung Amezquita, INSULATION NOZZLEMAN - 10/26/2024 6:12 AM Yung Amezquita, ANSELMO - 10/26/2024 6:12 AM EDTPatient Instructions Note Date & Type Note Facility 10-26-2024 History of Present illness Narrative Pt is unsure if she has any cholesterol medication she is either out or lost them she has not taken any in two days. Pt needs refill on fluoxetine Images from the original note were not included. Sofie Adrian is a 69 y.o. female presents with chief complaint of No chief complaint on file. HPI: Diet:variety and balanced Activity:no Mental Health Concerns: no Falls in the last year: no Still driving:yes Do you pay your bills: yes Any hearing problems: no Any Vision problems: no, last eye exam: 2024 Any Hospitalizations in the last year: no Specialist: Podiatry [facility] HCPOA/Living Will: no Concerns: none SUBJECTIVE: MEDICATIONS: Current Outpatient Medications Medication Instructions [...] BEFORE BEDTIME cyclobenzaprine (FLEXERIL) 10 mg, Oral, Every 12 hours PRN FLUoxetine (PROZAC) 10 mg, Oral, Daily meloxicam (MOBIC) 15 mg, Oral, Every morning omeprazole (PRILOSEC) 40 mg, Oral, Daily before breakfast ALLERGIES: Allergies Allergen Reactions Sulfacetamide GI intolerance [...] remission Anxiety 06/02/2023 Back pain Benign hypertension 06/03/2023 Chronic bilateral low back pain without sciatica 03/30/2023 Diverticulosis of colon without diverticulitis 06/11/2023 Gout, unspecified 06/03/2023 Hyperlipidemia 06/03/2023 Opioid abuse ([facility]) Osteoporosis, post-menopausal 06/11/2023 Pain in joint, multiple sites 06/11/2023 Past Surgical History: Procedure Laterality Date COLECTOMY 2017 SINUS SURGERY TUBAL LIGATION family history includes Cancer in her father; Diabetes in her father; Heart disease in her mother; Hyperlipidemia in her father. OBJECTIVE: Visit Vitals BP 118/82 (BP Location: Left arm, Patient Position: Sitting, BP Cuff Size: Adult long) Pulse 68 Temp 98.5 F (Temporal) Resp 18 Wt 118 lb 6.4 oz SpO2 97% BMI 25.09 kg/m Smoking Status Former BSA 1.48 m [...] Normal range of motion and neck supple. Comments: Kyphotic , scoliosis Skin: General: Skin is warm and dry. [...] low back pain without sciatica Relevant Medications cyclobenzaprine (Flexeril) 10 MG tablet meloxicam (Mobic) 15 MG tablet Gastroesophageal reflux disease without esophagitis Recommendations: freq small meals, nothing to eat or drink at least 2 hours prior to bed, limit caffeine, alcohol, as well as spicy foods Meds to limit or avoid if possible: NSAIDS Elevate HOB if possible Current meds: omeprazole Relevant Medications omeprazole (PriLOSEC) [address] capsule Anxiety Current medication: fluoxetine Relevant Medications FLUoxetine (PROzac) 10 MG capsule Hyperlipidemia On statin therapy Check labs yearly and prn dose changes Relevant Medications atorvastatin (Lipitor) 10 MG tablet Encounter for screening mammogram for malignant neoplasm of breast Relevant Orders Bilateral screening mammogram Medicare annual wellness visit, subsequent - Primary Reviewed Ht/Wt/BMI Recommend eye exam yearly Recommend dental exams twice a year Balance work/leisure activities Exercises is recommended most days of the week (appropriate as chronic conditions allow) Follow up yearly and prn Hx of opioid abuse ([facility]) Took suboxone in the past, no recent med refills for this noted on [facility] Major depressive disorder, single episode, in full remission Current medications: fluoxetine Associated Problem(s): Gastroesophageal reflux disease without esophagitis Recommendations: freq small meals, nothing to eat or drink at least 2 hours prior to bed, limit caffeine, alcohol, as well as spicy foods Meds to limit or avoid if possible: NSAIDS Elevate HOB if possible Current meds: omeprazole Associated Problem(s): Osteoporosis, post-menopausal Continue fosamax, Last dexa: 05/26/24 -2.3 osteopenia Associated Problem(s): Anxiety Current medication: fluoxetine Associated Problem(s): Hx of opioid abuse ([facility]) Took suboxone in the past, no recent med refills for this noted on [facility] Associated Problem(s): Hyperlipidemia On statin therapy Check labs yearly and prn dose changes Associated Problem(s): Major depressive disorder, single episode, in full remission Current medications: fluoxetine Associated Problem(s): Medicare annual wellness visit, subsequent Reviewed Ht/Wt/BMI Recommend eye exam yearly Recommend dental exams twice a year Balance work/leisure activities Exercises is recommended most days of the week (appropriate as chronic conditions allow) Follow up yearly and prn documented in this encounter [facility] 06-28-2024 Telephone encounter Note Reschedule AWV LA [facility] 06-28-2024 Miscellaneous Notes Deandre SAMPSON documented in this encounter [facility] 05-10-2024 History of Present illness Narrative Associated Problem(s): Viral upper respiratory tract infection Neg for flu Offered to test for COVID at [facility] or send out health trax, she [...] without diverticulitis 06/11/2023 Gout, unspecified 06/03/2023 Hyperlipidemia (CMS/HCC) 06/03/2023 Opioid abuse (CMS/HCC) Osteoporosis, post-menopausal (CMS/HCC) 06/11/2023 Pain in joint, multiple sites 06/11/2023 [...] flu Offered to test for COVID at [facility] or send out health trax, she declines Recommend fluids, rest, tylenol/motrin prn Warm salt water gargles, and throat lozenges Does not work til Thursday Will call if worsens, advised viruses last 7-10 days, worse by day 5 then better Relevant Orders POCT Influenza A/B documented in this encounter [facility] 05-10-2024 Instructions Rosario Amezquita NP - 05/10/2024 4:00 PM EST Fluids, rest, tylenol/motrin prn Throat lozenges, warm salt water gargles documented in this encounter [facility] 04-05-2024 History of Present illness Narrative Associated [...] remission Anxiety 06/02/2023 Back pain Benign hypertension ([facility]) 06/03/2023 Chronic bilateral low back pain without sciatica 03/30/2023 Diverticulosis of colon without diverticulitis 06/11/2023 Gout, unspecified 06/03/2023 Hyperlipidemia ([facility]) 06/03/2023 Opioid abuse ([facility]) Osteoporosis, post-menopausal ([facility]) 06/11/2023 Pain in joint, multiple sites 06/11/2023 [...] Orders Vitamin B12 documented in this encounter [facility] 04-05-2024 Instructions Rosario Amezquita NP - 04/05/2024 1:20 PM EST Check labs, if they are ok we will order an EMG to assess nerve function documented in this encounter [facility] 03-02-2024 History of Present illness Narrative Associated [...] working with diet changes and worked at [employer] activity. No abd pain, no NV, no [...] remission Anxiety 06/02/2023 Back pain Benign hypertension ([facility]) 06/03/2023 Chronic bilateral low back pain without sciatica 03/30/2023 Diverticulosis of colon without diverticulitis 06/11/2023 Gout, unspecified 06/03/2023 Hyperlipidemia ([facility]) 06/03/2023 Opioid abuse ([facility]) Osteoporosis, post-menopausal ([facility]) 06/11/2023 Pain in joint, multiple sites 06/11/2023 [...] HOB if possible documented in this encounter [facility] 03-02-2024 Instructions Rosario Amezquita NP - 03/02/2024 2:20 PM EST Lab work Bone density scan: will send to [facility] documented in this encounter [facility] 06-11-2023 History of Present illness Narrative Associated [...] without diverticulitis 06/11/2023 Gout, unspecified 06/03/2023 Hyperlipidemia (CMS/HCC) 06/03/2023 Opioid abuse ([facility] [place] Osteoporosis, post-menopausal (CMS/HCC) 06/11/2023 Pain in joint, multiple sites 06/11/2023 [...] 70 MG tablet documented in this encounter [facility] 10-22-2021 Note HNO ID: [id number] Author: Koko Burris MD Service: General Surgery [...] your independent professional judgment. Thank you, Annabella [facility] 10-22-2021 Note HNO ID: [id number] Author: Joceline Liang MD Service: General Surgery [...] Acute Care Surgery (ACS) Day Floor Pager: [phone] Acute Care Surgery (ACS) Day Consults Pager: [phone] On nights (6 pm to 6 am) and on Weekends/Holidays, please page the on-call pager: [phone] ___ Subjective: See above Physical Exam: BP [...] BMP, MG, PHOS Recent Labs 10/22/21 0714 10/19/213 10/19/21 2202 01/12/17 0458 01/11/17 0515 01/10/17 [...] and Output: Date 10/21/21699 - 10/22/21 0659 10/22/21 07 - 10/23/21 0659 Shift 0700-4448 1336-7748 2090-9781 24 Hour Total 1910-5339 1480-7151 6417-7441 24 Hour Total INTAKE PO 120 240 [...] sublingual film (SUBOXONE) 2 Film SUBLINGUAL DAILY [facility] 10-21-2021 Note HNO ID: [id number] Author: Merline Sanchez RN Service: Care Management Author Type: Registered Nurse Type: Care Mgt Initial Assessment Filed: 10/21/2021 11:35 AM Note Text: CARE MANAGEMENT: ASSESSMENT AND DISCHARGE PLAN SERVICE DATE: October 21, 2021 SERVICE TIME: 11:29 AM PRIMARY CARE PHYSICIAN: Rosario Amezquita CNP, [employer] Primary Contact: Extended Emergency Contact Information Primary Emergency Contact: Maude Adrian Relation: Daughter Secondary Emergency Contact: cecile adam Mobile Relation: Spouse ADMISSION STATUS: Inpatient Insurance Provider: N/A NEEDS PRIOR TO DISCHARGE Needs Prior to Discharge: To Be Determined;Procedure Procedure Needed: SBFT today POTENTIAL TRANSITION PLANS To Be Determined Patient's perception of need for this admission: SBO ADVANCE DIRECTIVES Current Advance 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 Attempted to Assist with AD Completion: Yes [...] External Provider Provider Name: Rosario Amezquita CNP [phone] Does the patient have transportation upon discharge?: [...] Completely I feel financially burdened by my [id number] expenses for my prescription medication:: 0 - Disagree Completely Risk Score: 0 Patient is categorized as: Low risk < 2 FUNCTIONAL How do you manage to accomplish the following: Independent: Ambulation;Bathe/Shower;Dress;Mary Jane ls/Meal Prep;Going to the bathroom;Medication Management;Transportation to appointments/community Services/Needs//Equipment Does Patient Currently Receive Any Community Services or Home Care?: None Equipment Prior to Admission: None Has the Patient Been in a Long Term Facility in the Past 30 days?: No No medical discharge barriers identified at this time. No social discharge barriers identified at this time. No behavioral/cognitive discharge barriers identified at this time. No functional discharge barriers identified at this time. FREEDOM OF CHOICE EXPLAINED: [place] of Choice Given: No Reason Not Given: [...] 21, 2021 TIME: 11:29 AM CONTACT #: [phone] [facility] 10-21-2021 Note HNO ID: [id number] Author: Koko Burris MD Service: General Surgery [...] MD General Surgery PGY-1 Acute Care Surgery ([facility]) Day Floor Pager: [phone] Acute Care Surgery (ACS) Day Consults Pager: [phone] On nights (6 pm to 6 am) and on Weekends/Holidays, please page the on-call pager: [phone] ___ Subjective: See above Physical Exam: BP [...] MG, PHOS Recent Labs 10/19/21 2203 10/19/21 22001/12/17 0458 01/11/17 0515 01/10/17 0453 01/09/17 0623 [...] 0659 10/21/21 07 - 10/22/21 0659 Shift 1924-5154 7337-0701 0186-7981 24 Hour Total 2670-2027 3982-4749 5607-2004 24 Hour Total INTAKE IV 850 667 294 0506 Volume (mL) (NaCl 0.9% iv flush bag) 600 600 Volume (mL) (potassium chloride iv piggyback 20 mEq/100 mL) 200 100 300 Volume (mL) (magnesium sulfate 2 g in sterile water 50 ml) 50 50 Volume (mL) (dextrose 5% in NaCl 0.45% iv infusion) 407 059 8189 Shift Total 850 305 247 3393 OUTPUT Urine 400 686 166 9317 Void (ml) 400 406 213 7952 Tubes 75 25 100 Output (GI Feed 10/19/21 1700 Admission to Hospital Gastric Right Naris) 75 25 100 Shift Total 475 126 142 6922 Weight (kg) 56.5 56.5 56.5 56.5 56.5 [...] sublingual film (SUBOXONE) 2 Film SUBLINGUAL DAILY [facility] 10-20-2021 Note HNO ID: [id number] Author: Leighann Rodriguez RN Service: Nursing Author [...] This note was completed by: Leighann Rodriguez [facility] 10-20-2021 Note HNO ID: [id number] Author: Koko Burris MD Service: General Surgery [...] Acute Care Surgery (ACS) Day Floor Pager: [phone] Acute Care Surgery (ACS) Day Consults Pager: [phone] On nights (6 pm to 6 am) and on Weekends/Holidays, please page the on-call pager: [phone] ___ Subjective: See above Physical Exam: BP [...] Labs: CBC, BMP, MG, PHOS Recent Labs 10/19/21220210/19/212 01/12/17 0458 01/11/17 0515 01/10/17 0453 01/09/17 [...] - 10/20/2165810/20/21 07 - 10/21/21 0659 Shift 4112-6180 5970-5496 9963-7255 24 Hour Total 0369-6296 4805-6570 2484-3508 24 Hour Total INTAKE IV 300 600 900 Volume (mL) (dextrose 5% in NaCl 0.45% iv infusion) 300 600 900 Shift Total 300 600 900 OUTPUT Urine 250 450 700 Void (ml) 250 450 700 Tubes 350 150 500 Output (GI Feed 10/19/21 1700 Admission to Hospital Gastric Right Naris) 350 150 500 Shift Total 116 045 0197 Weight (kg) 56.5 56.5 56.5 56.5 56.5 [...] injection 5,000 Units SUBCUTANEOUS q 12 H [facility] 09-17-2021 Note PROCEDURE: XR FOOT L [...] by: ISAIAH ROJAS Date: 2021-09-17 11:44 [facility] Evaluation note Diagnosis Medicare annual wellness visit, subsequent- Primary Benign hypertension (CMS/HCC) Essential hypertension, benign Osteoporosis, post-menopausal (CMS/HCC) Senile osteoporosis Anxiety Anxiety state, unspecified Gastroesophageal reflux disease without esophagitis Esophageal reflux Age related osteoporosis, unspecified pathological fracture presence (CMS/HCC) Chronic bilateral low back pain without sciatica Mixed hyperlipidemia ([facility]) Mixed hyperlipidemia documented in this encounter [facility]* Diagnosis Medicare annual wellness visit, subsequent- Primary Benign hypertension ([facility]) Essential hypertension, benign Osteoporosis, post-menopausal ([facility]) Senile osteoporosis Anxiety Anxiety state, unspecified Gastroesophageal reflux disease without esophagitis Esophageal reflux Age related osteoporosis, unspecified pathological fracture presence ([facility]) Chronic bilateral low back pain without sciatica Mixed hyperlipidemia ([facility]) Mixed hyperlipidemia Chronic bilateral low back pain without sciatica- Primary Anxiety Anxiety state, unspecified Anxiety- Primary Anxiety state, unspecified Hx of opioid abuse ([facility]) Chronic bilateral low back pain without sciatica Overweight (BMI 25.0-29.9) Overweight Chronic bilateral low back pain without sciatica documented in this encounter [facility]* Diagnosis Medicare annual wellness visit, subsequent- Primary Benign hypertension ([facility] Essential hypertension, benign Osteoporosis, post-menopausal ([facility]) Senile osteoporosis Anxiety Anxiety state, unspecified Gastroesophageal reflux disease without esophagitis Esophageal reflux Age related osteoporosis, unspecified pathological fracture presence ([facility]) Chronic bilateral low back pain without sciatica Mixed hyperlipidemia ([facility] Mixed hyperlipidemia Chronic bilateral low back pain without sciatica- Primary Anxiety Anxiety state, unspecified Anxiety- Primary Anxiety state, unspecified Hx of opioid abuse ([facility]) Chronic bilateral low back pain without sciatica Overweight (BMI 25.0-29.9) Overweight Anxiety- Primary Anxiety state, unspecified Major depressive disorder, single episode, in full remission ([facility] Major depressive disorder, single episode in full remission Overweight (BMI 25.0-29.9) Overweight Osteoporosis, post-menopausal ([facility]) Senile osteoporosis Gastroesophageal reflux disease without esophagitis Esophageal reflux Heart murmur Undiagnosed cardiac murmurs documented in this encounter [facility] note* Diagnosis Medicare annual wellness visit, subsequent- Primary Benign hypertension ([facility]) Essential hypertension, benign Osteoporosis, post-menopausal ([facility]) Senile osteoporosis Anxiety Anxiety state, unspecified Gastroesophageal reflux disease without esophagitis Esophageal reflux Age related osteoporosis, unspecified pathological fracture presence ([facility]) Chronic bilateral low back pain without sciatica Mixed hyperlipidemia ([facility] Mixed hyperlipidemia Chronic bilateral low back pain without sciatica- Primary Anxiety Anxiety state, unspecified Anxiety- Primary Anxiety state, unspecified Hx of opioid abuse ([facility] Chronic bilateral low back pain without sciatica Overweight (BMI 25.0-29.9) Overweight Anxiety- Primary Anxiety state, unspecified Major depressive disorder, single episode, in full remission ([facility] Major depressive disorder, single episode in full remission Overweight (BMI 25.0-29.9) Overweight Osteoporosis, post-menopausal ([facility] Senile osteoporosis Gastroesophageal reflux disease without esophagitis [...] annual wellness visit, subsequent- Primary Benign hypertension ([facility]) Essential hypertension, benign Osteoporosis, post-menopausal ([facility]) Senile osteoporosis Anxiety Anxiety state, unspecified Gastroesophageal reflux disease without esophagitis Esophageal reflux Age related osteoporosis, unspecified pathological fracture presence ([facility]) Chronic bilateral low back pain without sciatica Mixed hyperlipidemia ([facility]) Mixed hyperlipidemia Chronic bilateral low back pain without sciatica- Primary Anxiety Anxiety state, unspecified Anxiety- Primary Anxiety state, unspecified Hx of opioid abuse ([facility] Chronic bilateral low back pain without sciatica Overweight (BMI 25.0-29.9) Overweight Anxiety- Primary Anxiety state, unspecified Major depressive disorder, single episode, in full remission ([facility] Major depressive disorder, single episode in full remission Overweight (BMI 25.0-29.9) Overweight Osteoporosis, post-menopausal ([facility]) Senile osteoporosis Gastroesophageal reflux disease without esophagitis [...] annual wellness visit, subsequent- Primary Benign hypertension ([facility]) Essential hypertension, benign Osteoporosis, post-menopausal ([facility]) Senile osteoporosis Anxiety Anxiety state, unspecified Gastroesophageal reflux disease without esophagitis Esophageal reflux Age related osteoporosis, unspecified pathological fracture presence (CMS/HCC) Chronic bilateral low back pain without sciatica Mixed hyperlipidemia ([facility]/H[facility]) Mixed hyperlipidemia Chronic bilateral low back pain without sciatica- Primary Anxiety Anxiety state, unspecified Anxiety- Primary Anxiety state, unspecified Hx of opioid abuse ([facility]/HCC) Chronic bilateral low back pain without sciatica Overweight (BMI 25.0-29.9) Overweight Anxiety- Primary Anxiety state, unspecified Major depressive disorder, single episode, in full remission ([facility]/H[facility]) Major depressive disorder, single episode in full remission Overweight (BMI 25.0-29.9) Overweight Osteoporosis, post-menopausal ([facility]) Senile osteoporosis Gastroesophageal reflux disease without esophagitis [...] Esophageal reflux documented in this encounter [facility]* Diagnosis Medicare annual wellness visit, subsequent- Primary Benign hypertension ([facility]) Essential hypertension, benign Osteoporosis, post-menopausal ([facility] Senile osteoporosis Anxiety Anxiety state, unspecified Gastroesophageal reflux disease without esophagitis Esophageal reflux Age related osteoporosis, unspecified pathological fracture presence ([facility] Chronic bilateral low back pain without sciatica Mixed hyperlipidemia ([facility] Mixed hyperlipidemia Chronic bilateral low back pain without sciatica- Primary Anxiety Anxiety state, unspecified Anxiety- Primary Anxiety state, unspecified Hx of opioid abuse ([facility] Chronic bilateral low back pain without sciatica Overweight (BMI 25.0-29.9) Overweight Anxiety- Primary Anxiety state, unspecified Major depressive disorder, single episode, in full remission ([facility] Major depressive disorder, single episode in full remission Overweight (BMI 25.0-29.9) Overweight Osteoporosis, post-menopausal ([facility]) Senile osteoporosis Gastroesophageal reflux disease without esophagitis Esophageal reflux Heart murmur Undiagnosed cardiac murmurs Pain in both lower extremities- Primary Muscle cramps at night Cramp of limb Vitamin deficiency Unspecified vitamin deficiency Chronic bilateral low back pain without sciatica Viral upper respiratory tract infection- Primary Acute upper respiratory infections of unspecified site Age-related osteoporosis without current pathological fracture ([facility]) documented in this encounter [facility]* Diagnosis Medicare annual wellness visit, subsequent- Primary Benign hypertension ([facility]) Essential hypertension, benign Osteoporosis, post-menopausal ([facility]) Senile osteoporosis Anxiety Anxiety state, unspecified Gastroesophageal reflux disease without esophagitis Esophageal reflux Age related osteoporosis, unspecified pathological fracture presence ([facility]) Chronic bilateral low back pain without sciatica Mixed hyperlipidemia ([facility] Mixed hyperlipidemia Chronic bilateral low back pain without sciatica- Primary Anxiety Anxiety state, unspecified Anxiety- Primary Anxiety state, unspecified Hx of opioid abuse ([facility] Chronic bilateral low back pain without sciatica Overweight (BMI 25.0-29.9) Overweight Anxiety- Primary Anxiety state, unspecified Major depressive disorder, single episode, in full remission ([facility] Major depressive disorder, single episode in full remission Overweight (BMI 25.0-29.9) Overweight Osteoporosis, post-menopausal ([facility] Senile osteoporosis Gastroesophageal reflux disease without esophagitis [...] Anxiety state, unspecified Hx of opioid abuse ([facility]) Chronic bilateral low back pain without sciatica [...] fracture presence documented in this encounter [facility]* [...] Anxiety state, unspecified Hx of opioid abuse ([facility]) Chronic bilateral low back pain without sciatica [...] Chronic bilateral low back pain without sciatica Medicare annual wellness visit, subsequent- Primary Major depressive disorder, single episode, in full remission Major depressive disorder, single episode in full remission Mixed hyperlipidemia Mixed hyperlipidemia Hx of opioid abuse ([facility] Anxiety Anxiety state, unspecified Gastroesophageal reflux disease without esophagitis Esophageal reflux Encounter for screening mammogram for malignant neoplasm of breast Chronic bilateral low back pain without sciatica documented in this encounter [facility] [...] section and content) DATE CREATED AUTHOR 10/20/2017 [facility] DATE CREATED AUTHOR AUTHOR'S ORGANIZ ATION 10/21/2017 [facility] DATE CREATED AUTHOR AUTHOR'S ORGANIZ ATION 10/22/2021 [facility] DATE CREATED AUTHOR AUTHOR'S ORGANIZ ATION 07/30/2022 [facility] DATE CREATED AUTHOR AUTHOR'S ORGANIZ ATION 10/28/[address] [facility] dical Specialists EPIC Care Teams (unrecognized sec tion and content) Receiving Coordinator Relationship Specialty Start Date End Date Rosario Amezquita NP [address] [place] [address] PCP - V[place] HERNANDEZ 04/27/23 Dayton Amaya MD [address] [place] [phone] PCP - General Family Medicine 06/11/23 Rosario Amezquita NP [address] [place] [phone] Referring Physician Nurse Practitioner 11/12/22 Rosario Amezquita NP [address] [place] [phone] Nurse Practitioner Family Medicine 06/11/23 Receiving Coordinator Relationship Specialty Start Date End Date Rosario Amezquita NP [address] [place] [phone] PCP - [place] HERNANDEZ 04/27/23 Dayton Amaya MD [address] [place] [phone] PCP - General Family Medicine 06/11/23 Rosario Amezquita NP [address] [place] [phone] Referring Physician Nurse Practitioner 11/12/22 Rosario Amezquita NP [address] [place] [address] Nurse Practitioner Family Medicine 06/11/23 Receiving Coordinator Relationship Specialty Start Date End Date Rosario Amezquita NP [address] [place] [phone] PCP - [place] HERNANDEZ 04/27/23 Dayton Amaya MD [address] [place] [address] PCP - General Family Medicine 06/11/23 Rosario Amezquita NP [address] [place] [address] Referring Physician Nurse Practitioner 11/12/22 Rosario Amezquita NP [address] [place] [address] Nurse Practitioner Family Medicine 06/11/23 Receiving Coordinator Relationship Specialty Start Date End Date Rosario Amezquita NP [address] [place] [phone] PCP - [place] HERNANDEZ 04/27/23 Dayton Amaya MD [address] [place] [address] PCP - General Family Medicine 06/11/23 Rosario Amezquita NP [address] [place] [address] Referring Physician Nurse Practitioner 11/12/22 Rosario Amezquita NP [address] [place] [address] Nurse Practitioner Family Medicine 06/11/23 Receiving Coordinator Relationship Specialty Start Date End Date Rosario Amezquita NP [address] [place] [address] PCP - [place] HERNANDEZ 04/27/23 Dayton Amaya MD [address] [place] [address] PCP - General Family Medicine 06/11/23 Rosario Amezquita NP [address] [place] [address] Referring Physician Nurse Practitioner 11/12/22 Rosario Amezquita NP [address] [place] [address] Nurse Practitioner Family Medicine 06/11/23 Receiving Coordinator Relationship Specialty Start Date End Date Rosario Amezquita NP [address] [place] [address] PCP - [place] HERNANDEZ 04/27/23 Dayton Amaya MD [address] [place] [address] PCP - General Family Medicine 06/11/23 Rosario Amezquita NP [address] [place] [address] Referring Physician Nurse Practitioner 11/12/22 Rosario Amezquita NP [address] [place] [address] Nurse Practitioner Family Medicine 06/11/23 Receiving Coordinator Relationship Specialty Start Date End Date Rosario Amezquita NP [address] [place] [address] PCP - [place] HERNANDEZ 04/27/23 Dayton Amaya MD [address] [place] [address] PCP - General Family Medicine 06/11/23 Rosario Amezquita NP [address] [place] [address] Referring Physician Nurse Practitioner 11/12/22 Rosario Amezquita NP [address] [place] [address] Nurse Practitioner Family Medicine 06/11/23 Receiving Coordinator Relationship Specialty Start Date End Date Rosario Amezquita NP [address] [place] [address] PCP - V[place] HERNANDEZ 04/27/23 Dayton Amaya MD [address] [place] [address] PCP - General Family Medicine 06/11/23 Rosario Amezquita NP [address] [place] [address] Referring Physician Nurse Practitioner 11/12/22 Rosario Amezquita NP [address] [place] [address] Nurse Practitioner Family Medicine 06/11/23 Receiving Coordinator Relationship Specialty Start Date End Date Rosario Amezquita NP [address] [place] [address] PCP - [place] 04/27/23 Dayton Amaya MD [address] [place] [address] PCP - General Family Medicine 06/11/23 Rosario Amezquita NP [address] [place] [address] Referring Physician Nurse Practitioner 11/12/22 Rosario Amezquita NP [address] [place] [address] Nurse Practitioner Family Medicine 06/11/23 Receiving Coordinator Relationship Specialty Start Date End Date Rosario Amezquita NP [address] [place] [address] PCP - [place] 04/27/23 Dayton Amaya MD [address] [place] [address] PCP - General Family Medicine 06/11/23 Rosario Amezquita NP [address] [place] [address] Referring Physician Nurse Practitioner 11/12/22 Rosario Amezquita NP [address] [place] [address] Nurse Practitioner Family Medicine 06/11/23 Receiving Coordinator Relationship Specialty Start Date End Date Rosario Amezquita NP [address] [place] [address] PCP - [place] 04/27/23 Dayton Amaya MD [address] [place] [address] PCP - General Family Medicine 06/11/23 Rosario Amezquita NP [address] [place] [address] Referring Physician Nurse Practitioner 11/12/22 Rosario Amezquita NP [address] [place] [address] Nurse Practitioner Family Medicine 06/11/23 Receiving Coordinator Relationship Specialty Start Date End Date Dayton Amaya MD [address] [place] [address] PCP - General Family Medicine 06/11/23 Rosario Amezquita NP [address] [place] [address] Referring Physician Nurse Practitioner 11/12/22 Rosario Amezquita NP [address] [place] [address] Nurse Practitioner Family Medicine 06/11/23 Receiving Coordinator Relationship Specialty Start Date End Date Rosario Amezquita NP [address] [place] [address] PCP - [place] HERNANDEZ 04/27/23 Dayton Amaya MD [address] [place], [place] [phone] PCP - General Family Medicine 06/11/23 Rosario Amezquita NP [address] [place] [phone] Referring Physician Nurse Practitioner 11/12/22 Rosario Amezquita NP [address] [place] [phone] Nurse Practitioner Family Medicine 06/11/23 Receiving Coordinator Relationship Specialty Start Date End Date Rosario Amezquita NP [address] [place] [phone] PCP - Vidal HERNANDEZ 04/27/23 Dayton Amaya MD [address] [place] [phone] PCP - General Family Medicine 06/11/23 Rosario Amezquita NP [address] [place] [phone] Referring Physician Nurse Practitioner 11/12/22 Rosario Amezquita NP [address] [place] [phone] Nurse Practitioner Family Medicine 06/11/23 Receiving Coordinator Relationship Specialty Start Date End Date Rosario Amezquita NP [address] [place] [phone] PCP - Vidal HERNANDEZ 04/27/23 Dayton Amaya MD [address] [place] [phone] PCP - General Family Medicine 06/11/23 Rosario Amezquita NP [address] [place] [phone] Referring Physician Nurse Practitioner 11/12/22 Rosario Amezquita NP [address] [place] [phone] Nurse Practitioner Family Medicine 06/11/23 Receiving Coordinator Relationship Specialty Start Date End Date Rosario Amezquita NP [address] [place] [phone] PCP - Vidal HERNANDEZ 04/27/23 Dayton Amaya MD [address] [place] [phone] PCP - General Family Medicine 06/11/23 Rosario Amezquita NP [address] [place] [phone] Referring Physician Nurse Practitioner 11/12/22 Rosario Amezquita NP [address] [place] [phone] Nurse Practitioner Family Medicine 06/11/23 Receiving Coordinator Relationship Specialty Start Date End Date Rosario Amezquita NP [address] [place] [phone] PCP - Vidal HERNANDEZ 04/27/23 Dayton Amaya MD [address] [place] [phone] PCP - General Family Medicine 06/11/23 Rosario Amezquita NP [address] [place] [address] Referring Physician Nurse Practitioner 11/12/22 Rosario Amezquita NP [address] [place] [phone] Nurse Practitioner Family Medicine 06/11/23 Receiving Coordinator Relationship Specialty Start Date End Date Rosario Amezquita NP [address] [place] [phone] PCP - Vidal HERNANDEZ 04/27/23 Dayton Amaya MD [address] [place] [phone] PCP - General Family Medicine 06/11/23 Rosario Amezquita NP [address] [place] [address] Referring Physician Nurse Practitioner 11/12/22 Rosario Amezquita NP [address] [place] [address] Nurse Practitioner Family Medicine 06/11/23 Reason for [...] BE BASED ON THE PRIMARY CLINICAL RECORDS. [employer] provides no warranty or guarantee of the accuracy or completeness of information in this document.
--- NOTE | 2024-12-20 09:13 | ECG_ITS ---
[facility] Test Date: 2024-12-20 Pat Name: SOFIE ADRIAN Department: Room: - Gender: Female Process Development Associate: : 1955 Requested By: MERCEDES CESAR Order Number: [id number] Reading MD: OSIEL MEJIA Measurements Intervals [place] Rate: 72 P: -5 RI: 126 QRS: 15 QRSD: 76 T: 40 QT: 363 QTc: 397 Interpretive Statements SINUS RHYTHM Compared to ECG 04/29/2021 10:41:19 No significant changes Electronically Signed On 12-21-2024 15:53:51 EDT by OSIEL MEJIA
--- NOTE | 2024-12-20 10:04 | PM.PRESUREVA ---
History of Present Illness History of Present Illness Chief complaint: Contracture toes Left Narrative: Patient presents for presurgical testing. The patient complains of toe pain on the left foot. The patient states her third toe is deformed and rubs on her other toes as well as on her shoes and causes discomfort especially when standing for long periods of time. The patient denies any injury or trauma. She states toe spacers do provide some comfort. She denies numbness, tingling, weakness, or any other complaints. Review of Systems ROS Narrative REVIEW OF SYSTEMS: Negative except as stated in HPI, ten or more systems reviewed. Constitutional: No fever, chills, weakness ENT: No sore throat or epistaxis Cardiovascular: No edema, chest pain, palpitations, or activity intolerance Respiratory: No shortness of breath, cough, or wheezing Gastrointestinal: No abdominal pain, constipation, diarrhea, or vomiting Genitourinary: No dysuria or hematuria Neurological: No numbness, tingling, weakness, or headache Psychiatric: No mood changes [facility] Medical History (Updated 12/20/24 @ 09:58 by Reena Catalan NP) Osteoporosis ?M81.0 - Age-related osteoporosis without current pathological fracture (ICD-10) Gout ?M10.9 - Gout, unspecified (ICD-10) Diverticulosis ?K57.90 - Diverticulosis of intestine, part unspecified, without perforation or abscess without bleeding (ICD-10) Anxiety ?F41.9 - Anxiety disorder, unspecified (ICD-10) Alcoholism in remission ?F10.21 - Alcohol dependence, in remission (ICD-10) Opioid abuse, in remission ?F11.11 - Opioid abuse, in remission (ICD-10) Hammertoe of left foot ?M20.42 - Other hammer toe(s) (acquired), left foot (ICD-10) Back pain ?M54.9 - Dorsalgia, unspecified (ICD-10) Anemia ?D64.9 - Anemia, unspecified (ICD-10) Anger ?R45.4 - Irritability and anger (ICD-10) Constipation ?K59.00 - Constipation, unspecified (ICD-10) Hypertension ?I10 - Essential (primary) hypertension (ICD-10) High cholesterol ?E78.00 - Pure hypercholesterolemia, unspecified (ICD-10) Arthritis ?M19.90 - Unspecified osteoarthritis, unspecified site (ICD-10) GI bleed ?K92.2 - Gastrointestinal hemorrhage, unspecified (ICD-10) History of blood transfusion ?Z92.89 - Personal history of other medical treatment (ICD-10) Surgical History (Updated 12/20/24 @ 09:39 by Reena Catalan NP) History of tonsillectomy ?Z90.89 - Acquired absence of other organs (ICD-10) History of esophagogastroduodenoscopy (EGD) ?Z98.890 - Other specified postprocedural states (ICD-10) History of colonoscopy ?Z98.890 - Other specified postprocedural states (ICD-10) History of tubal ligation ?Z98.51 - Tubal ligation status (ICD-10) H/O colectomy ?Z90.49 - Acquired absence of other specified parts of digestive tract (ICD-10) History of nasal septoplasty ?Z98.890 - Other specified postprocedural states (ICD-10) History of foot surgery ?Z98.890 - Other specified postprocedural states (ICD-10) Family History (Updated 12/20/24 @ 09:39 by Reena Catalan NP) Other Family history of coronary artery disease Family history of diabetes mellitus Family history of heart disease Family history of myocardial infarction Family history of prostate cancer Social History (Updated 12/20/24 @ 09:33 by Reena Catalan NP) Within the past year, how often did you have a drink containing alcohol: never Score interpretation: A score less than 3 is consistent with normal alcohol consumption. 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 [employer] Highest level of school completed/degree received: high school graduate Meds Home Medications and Allergies Home Medications ?Medication ?Instructions ?Recorded ?Confirmed ?Type alendronate 70 mg tablet 70 mg PO QWEEK 12/20/24 12/20/24 History atorvastatin 10 mg tablet 10 mg PO DAILY 12/20/24 12/20/24 History buprenorphine 8 mg-naloxone 2 mg 1 film sublingual DAILY 12/20/24 12/20/24 History sublingual film (Suboxone) calcium 500 mg (as 1 tab PO BID 12/20/24 12/20/24 History carbonate)-vitamin D3 15 mcg (600 unit) tablet cyclobenzaprine 10 mg tablet 10 mg PO Q12H 12/20/24 12/20/24 History fluoxetine 10 mg capsule 10 mg PO DAILY 12/20/24 12/20/24 History meloxicam 15 mg tablet 15 mg PO DAILY 12/20/24 12/20/24 History omeprazole 40 mg capsule,delayed 40 mg PO DAILY 12/20/24 12/20/24 History release semaglutide (weight loss) 0.5 0.5 mg subcut QWEEK 12/20/24 12/20/24 History mg/0.5 mL subcutaneous pen injector Allergies Allergy/AdvReac Type Severity Reaction Status Date / Time Penicillins Allergy Vomiting Verified 12/20/24 09:27 Sulfa (Sulfonamide Allergy Rash Verified 12/20/24 09:27 Antibiotics) Opioids - Morphine Analogues AdvReac addiction Verified 12/20/24 09:31 Exam Narrative Exam Narrative: Constitutional: Awake, alert, comfortable, well-appearing, nontoxic, interactive, vital signs as charted Head: Normocephalic, atraumatic Neck: Supple, normal appearance, normal range of motion, no meningeal signs, no lymphadenopathy Respiratory: No respiratory distress, breath sounds clear Cardiovascular: Regular rate and rhythm, strong and regular heart tones Abdomen: Nontender, normal bowel sounds, soft Musculoskeletal: Normal gait, no swelling or edema, left foot: Deformities noted to toes 3 4 and 5 with limited range of motion, faint pedal pulse, sensation intact, good capillary refill Skin: No rashes or induration, no lesions, only visible skin inspected Neuro: No neurological deficits, normal sensation Psychiatric: Oriented ?3, normal affect Assessment and Plan Assessment and Plan (1) Hammertoe of left foot: Plan Correction of third toe contracture with soft tissue releases of toes 4 and 5 left foot scheduled with Dr. Llanes December 27, 2024.
[2024-12-20 10:27] LABS: Anion Gap 12.0; Blood Urea Nitrogen 15.0 mg/dL (7.0-18.0); Calcium 9.4 mg/dL (8.5-10.1); Carbon Dioxide 30.7 mmol/L (21.0-32.0); Chloride 104 mmol/L (98-107); Estimated GFR (African America >60 (>=60 mL/min/1.73m^2); Estimated GFR (Non-African Ame >60 (>=60 mL/min/1.73m^2); Glucose 86 mg/dL (74-106); Potassium 4.7 mmol/L (3.5-5.1); Sodium 142 mmol/L (136-145)
[2024-12-20 10:41] LABS: Hematocrit 35.9 % (36.0-48.0); Hemoglobin 11.4 g/dL (12.0-16.0); Immature Granulocytes Abs Auto 0.01 10^3/uL (0.00-0.03); Immature Granulocytes Pct Auto 0.2 % (0.0-0.5); Lymphocytes Absolute Auto 0.9 10^3/uL (1.2-3.8); Mean Corpuscular HGB Conc 31.8 g/dL (29.9-35.2); Mean Corpuscular Hemoglobin 29.2 pg (26.7-34.0); Mean Corpuscular Volume 91.8 fL (81.0-99.0); Platelet Count 178 10^3/uL (150-450); Red Blood Count 3.91 10^6/uL (4.20-5.40); White Blood Count 4.2 10^3/uL (4.0-11.0)
== END 2024-12-20 08:55 | disposition home or self-care (01) ==
LOC: PST 08:55
PROVIDERS: PCP Nurse Practitioner; Visit Provider Podiatrist Foot & Ankle Surgery
DX: Z01.810 Encounter for preprocedural cardiovascular examination (principal); Z01.812 Encounter for preprocedural laboratory examination; Z01.818 Encounter for other preprocedural examination; M20.42 Other hammer toe(s) (acquired), left foot
CPT/HCPCS: 80048; 85025; 93005; G0463

== ENCOUNTER 2025-01-12 13:05 | Outpatient (OUT) | payer MEDICARE, SELFPAY ==
--- NOTE | 2025-01-12 13:10 | MM_ITS ---
Patient Name: SOFIE ADRIAN MR#: [id number] : 1955 Exam Date: 01/12/2025 Ordering Doctor: MONIQUE WHITE CNP RADIOLOGY REPORT PROCEDURE: MM TOMOSYNTHESIS SCREENING BI COMPARISON: MM TOMOSYNTHESIS SCREENING BI, 08/20/2023. MG MAMM SCREEN 3D KARLOS CAD, 07/21/2022. MG MAMM SCREEN 3D KARLOS CAD, 07/16/2021. MG MAMM SCREEN KARLOS W CAD, 07/29/2012. INDICATIONS: Screening Calculator Name NCI Breast Cancer Risk Assessment Tool 5 Year Breast Cancer Risk 1.20% Lifetime Breast Cancer Risk 3.90% Personal Breast Cancer No Personal Ovarian Cancer No Treatments None Family Cancers Father with prostate cancer at age 75. LOCATION: [facility] BREAST COMPOSITION: There are scattered areas of fibroglandular density. FINDINGS: RIGHT BREAST: No significant suspicious finding. LEFT BREAST: No significant suspicious finding. DIAGNOSTIC CATEGORY 1--NEGATIVE. RECOMMENDATIONS: ROUTINE MAMMOGRAM AND CLINICAL EVALUATION IN 12 MONTHS. Dictated by: Seth Joshi MD on 01/12/2025 at 14:03 Approved by: Seth Joshi MD on 01/12/2025 at 14:05
--- OUTSIDE RECORDS SUMMARY | 2025-01-12 13:11 | XMS_ITS | CCD ---
Author Organization [facility] CliniSypr Care Team Providers Care Primary Operator Name Role Phone NATASHA YUN (CUSTOMER EXPERIENCE PROFESSIONAL) Unavailable UnavailNATASHA Sherman (CUSTOMER EXPERIENCE PROFESSIONAL) Unavailable UnavailTERESA Miranda Unavailable Unavailable ALAEDEEN, ADIS Unavailable Unavailable AICHHOLZ, APPAREL EMBROIDERY DIGITIZER ROSARIO Admitting Unavailable AICHHOLZ, APPAREL EMBROIDERY DIGITIZER ROSARIO Attending Unavailable AICHHOLZ, APPAREL EMBROIDERY DIGITIZER ROSARIO Consulting Unavailable AICHHOLZ, APPAREL EMBROIDERY DIGITIZER ROSARIO Primary Care Unavailable DR ISAIAH ROJAS Consulting Unavailable AICHHOLZ, APPAREL EMBROIDERY DIGITIZER ROSARIO Admitting Unavailable AICHHOLZ, APPAREL EMBROIDERY DIGITIZER ROSARIO Attending Unavailable AICHHOLZ, APPAREL EMBROIDERY DIGITIZER ROSARIO Consulting Unavailable AICHHOLZ, APPAREL EMBROIDERY DIGITIZER ROSARIO Primary Care Unavailable AICHHOLZ, APPAREL EMBROIDERY DIGITIZER ROSARIO Admitting Unavailable AICHHOLZ, APPAREL EMBROIDERY DIGITIZER ROSARIO Consulting Unavailable AICHHOLZ, APPAREL EMBROIDERY DIGITIZER ROSARIO Attending Unavailable AICHHOLZ, APPAREL EMBROIDERY DIGITIZER ROSARIO Primary Care Unavailable DR ISAIAH ROJAS Consulting Unavailable JORDAN, JOCELINE Attending Unavailable DR ISAIAH ROJAS Consulting Unavailable JORDAN, JOCELINE Admitting Unavailable AICHHOLZ, APPAREL EMBROIDERY DIGITIZER ROSARIO Primary Care Unavailable JOCELINE ORTEGA Consulting Unavailable DR ISAIAH ROJAS Consulting Unavailable JORDAN, JOCELINE Admitting Unavailable JORDAN, JOCELINE Attending Unavailable AICHHOLZ, APPAREL EMBROIDERY DIGITIZER ROSARIO Primary Care Unavailable JORDAN, JOCELINE Consulting Unavailable DR JESSICA SAMPSON Consulting Unavailable GRABIEL, NAYE Admitting Unavailable NAYE SPAIN Attending Unavailable AICHHOLZ, APPAREL EMBROIDERY DIGITIZER ROSARIO Primary Care Unavailable DR HOLLIE MATA Consulting Unavailable CHAPIN DEJESUS Consulting Unavailable NAYE SPAIN Consulting Unavailable BRIEN JAIMES Consulting Unavailable AICHHOLZ, APPAREL EMBROIDERY DIGITIZER ROSARIO Consulting Unavailable AICHHOLZ, APPAREL EMBROIDERY DIGITIZER ROSARIO Admitting Unavailable AICHHOLZ, APPAREL EMBROIDERY DIGITIZER ROSARIO Attending Unavailable AICHHOLZ, APPAREL EMBROIDERY DIGITIZER ROSARIO Primary Care Unavailable AICHHOLZ, APPAREL EMBROIDERY DIGITIZER ROSARIO Admitting Unavailable AICHHOLZ, APPAREL EMBROIDERY DIGITIZER ROSARIO Attending Unavailable AICHHOLZ, APPAREL EMBROIDERY DIGITIZER ROSARIO Consulting Unavailable AICHHOLZ, APPAREL EMBROIDERY DIGITIZER ROSARIO Primary Care Unavailable Aichholz CUSTOMER EXPERIENCE PROFESSIONAL, Rosario Unavailable Aichholz CUSTOMER EXPERIENCE PROFESSIONAL, Rosario Unavailable Dayton Amaya MD Primary Care Provider Aichholz CUSTOMER EXPERIENCE PROFESSIONAL, Rosario Unavailable Aichholz CUSTOMER EXPERIENCE PROFESSIONAL, Rosario Unavailable Aichholz CUSTOMER EXPERIENCE PROFESSIONAL, Rosario Unavailable Aichholz CUSTOMER EXPERIENCE PROFESSIONAL, Rosario Unavailable Aichholz CUSTOMER EXPERIENCE PROFESSIONAL, Rosario Unavailable Dayton Amaya MD Primary Care Provider AICHHOLZ, ROSARIO Attending Unavailable DAYTON OZUNA Attending Unavailable AICHHOLZ, ROSARIO Attending Unavailable AICHHOLZ, ROSARIO Attending Unavailable AICHHOLZ, ROSARIO Attending Unavailable DAYTON OZUNA Referring Unavailable Allergies Allergy Classification Reported Allergen(s) Allergy Type Date of Onset Reaction(s) Facility (20 sources) Penicillins; Translations: [PENICILLINS] Propensity to adverse reactions to drug (disorder) 10-22-19 14 Rash, Unknown, GI intolerance [facility] Repository (2 sources) Sulfonamides (Antibiotic); Translations: [SULFA (SULFONAMIDE ANTIBIOTICS)] Propensity to adverse reactions to drug (disorder) 10-22-19 14 AOF [facility] Repository (1 source) Sulfonamides (Antibiotic) Drug allergy (disorder) 01-26-20 15 [facility] Repository (20 sources) Sulfacetamide Drug Allergy 04-29-19 [...] least 30 mins 12 tablet 1 10/10/2024 Active Start: 09-25-2023 alendronate (F osamax) 70 [...] Problem Classification Problem Date Documented Date Episodic/Chronic Acquired foot deformities (3 sources) Hammer toe; Translations: [Other hammer toe(s) (acquired), left foot] 01-09-2025 Chronic Acquired foot deformities (2 sources) Hammer toe; Translations: [Other hammer toe(s) (acquired), right foot] 01-09-2025 Chronic Anxiety disorders (20 sources) Anxiety; Translations: [Anxiety [...] pathological fracture] Onset: 06-11-2023 06-11-2023 Chronic Other acquired deformities (3 sources) Deformity of metatarsal; Translations: [Unspecified acquired deformity of left lower leg] 01-09-2025 Episodic Other connective tissue disease (2 sources) Pain in left foot; Translations: [Pain in left foot] 01-09-2025 Episodic Other connective tissue disease (2 sources) Enthesopathy of lower limb; Translations: [Other enthesopathy of right foot and ankle] 01-09-2025 Episodic Other connective tissue disease (2 sources) Synovitis and tenosynovitis; Translations: [Other synovitis and tenosynovitis, right ankle and foot] 01-09-2025 Episodic Residual codes; unclassified (1 source) Family [...] VOMITING UNSPECIFIED] Onset: 10-23-2021 Episodic Nutritional deficiencies (20 sources) Vitamin deficiency; Translations: [Vitamin deficiency, unspecified] Onset: 04-05-2024 04-05-2024 Episodic Other aftercare (1 source) 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; Translations: [OTH HANDY WORKER CURRENT DRUG THERAPY] Onset: 10-23-2021 Episodic Other aftercare (1 source) intermediate school teacher (current) use of aspirin; Translations: [HALFWAY CURRENT USE OF ASPIRIN] Onset: 10-23-2021 Episodic [...] Onset: 08-06-2021 Episodic Other connective tissue disease (20 sources) Pain in bilateral legs; Translations: [Pain in right leg] Onset: 04-05-2024 04-05-2024 Episodic Other connective tissue disease (20 sources) Nocturnal muscle cramp; Translations: [Cramp and [...] Name Value Interpretation Reference Range Facility XR Foot - left 3 [facility] Result: XRAY: AP/MO/LAT: pedal radiographs demonstrate intact cortical margins and anatomic alignment. Joint spaces are maintained throughout the midfoot forefoot and hindfoot without evidence of acute fracture dislocation or arthropathy fusion of the left great toe fixation appears to be in alignment. Still able to visualize the joint space. Left 3rd digit has been surgically corrected appears to be a arthroplasty with a regrowth of bone in that region toe is an adductovarus position left 3rd there appears to be contracture of the 3rd metatarsophalangeal joint [facility] Radiology Study observation (narrative) [facility] ECG 12-LEADon 12-21-2024 [place] [address] Electrocardiograph Report Signed Patient: SOFIE ADRIAN MR#: [id number] : 1955 Acct:[id number] Age/Sex: 69 / F ADM Date: 12/20/24 Loc: PST Attending Dr: Mercedes Cesar D.P.M. Ordering Physician: Mercedes Cesar D.P.M. 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 Signed By: 12/21/24 1554 DD/ 0753 TD/TT: Public Address Servicer: [facility] Radiology, Radiologshannan jain MD - 12/21/2024 The [place] [id number] Electrocardiograph Report Signed Patient: SOFIE ADRIAN MR#: [id number] : 1955 Acct:[id number] Age/Sex: 69 / F ADM Date: 12/20/24 Loc: PST Attending Dr: Mercedes Cesar D.P.M. Ordering Physician: Mercedes Cesar D.P.M. 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 Signed By: 12/21/24 1555 DD/ 075 TD/TT: Public Address Servicer: [facility] ECG 12-LEADOrdered By: Radio logist Radiology on 12-21-2024 [facility] Work Phone: ALL BASIC METABOLIC PANELon 12-20-2024 Anion gap [Moles/Vol] 12 mmol/L [facility] Calcium [Mass/Vol] 9.4 mg/dL 8.5 - 10.1 mg/dL [facility] Chloride [Moles/Vol] 104 mmol/L 98 - 107 mmol/L [facility] CO2 [Moles/Vol] 30.7 mmol/L 21.0 - 32.0 mmol/L [facility] Creatinine [Mass/Vol] 0.64 mg/dL 0.55 - 1.02 mg/dL [facility] GFR/1.73 sq M.predicted CKD-EPI (S/P/Bld) [Vol rate/Area] >60 >=60 mL/min/1.73m 2 [facility] Glucose [Mass/Vol] 86 mg/dL 74 - 106 mg/dL [facility] Potassium [Moles/Vol] 4.7 mmol/L 3.5 - 5.1 mmol/L [facility] Sodium [Moles/Vol] 142 mmol/L 136 - 145 mmol/L [facility] TBH EGFR-NON AF CITIZEN OF [place] >60 >=60 mL/min/1.73m 2 [facility] Urea nitrogen [Mass/Vol] 15 mg/dL 7.0 - 18.0 mg/dL [facility] Urea nitrogen/Creatin ine [Mass ratio] 23.4 mg/mg [facility] ECG 12-LEADon 12-20-2024 Radiology Study observation (narrative) [facility] SEGMENTAL BLOOD PRESSUREon 0 11-18-2024 [place] [address] Cardiology Report Signed Patient: SOFIE ADRIAN MR#: [id number] : 1955 Acct:[id number] Age/Sex: 69 / F ADM Date: 11/16/24 Loc: CARD Attending Dr: Mercedes Cesar D.P.M. Ordering Physician: Mercedes Cesar D.P.M. Date of Service: 11/16/24 Procedure(s): CA segmental UE or LE KARLOS Accession Number(s): [id number] cc: Rosario Amezquita NP; Mercedes Cesar D.P.M. [facility] Test Date: 2024-11-16 Pat Name: SOFIE ADRIAN Department: Room: - Gender: Female Water Resources Engineer: AMADA PORTER : 1955 Requested By: MERCEDES CESAR Order Number: [id number] Reading MD: ALFREDO VALDEZ M.D. Interpretive Statements [...] 11/18/24 0813 11/18/24 0814 DD/ 1405 TD/TT: Public Address Servicer: [facility] Radiology, Radiologshannan jain MD - 11/18/2024 [place] [address] Cardiology Report Signed Patient: SOFIE ADRIAN MR#: [id number] : 1955 Acct:[id number] Age/Sex: 69 / F ADM Date: 11/16/24 Loc: CARD Attending Dr: Mercedes Cesar D.P.M. Ordering Physician: Mercedes Cesar D.P.M. Date of Service: 11/16/24 Procedure(s): CA segmental UE or LE KARLOS Accession Number(s): [id number] cc: Rosario Amezquita NP; Mercedes Cesar D.P.M. [facility] Test Date: 2024-11-16 Pat Name: SOFIE ADRIAN Department: Room: - Gender: Female Water Resources Engineer: AMADA PORTER : 1955 Requested By: MERCEDES CESAR Order Number: [id number] Reading MD: ALFREDO VALDEZ M.D. Interpretive Statements [...] 11/18/24 0813 11/18/24 0814 DD/ 1405 TD/TT: Public Address Servicer: JOANA Bryant SEGMENTAL BLOOD PRESSUREOrde red By: Radiologist Radiology on 11-18-2024 [facility] [employer] Work Phone: SEGMENTAL BLOOD PRESSUREon 0 11-16-2024 Radiology Study observation (narrative) [facility] XR FOOT LT MIN 3Von 10-14-19 [place] [address] XRay Report Signed Patient: SOFIE ADRIAN MR#: [id number] : 1955 Acct:[id number] Age/Sex: 69 / F ADM Date: 10/13/24 Loc: RAD Attending Dr: Mercedes Cesar D.P.M. Ordering Physician: Mercedes Cesar D.P.M. Date of Service: 10/13/24 Procedure(s): XR foot LT min 3V Accession Number(s): [id number] cc: Rosario Amezquita CUSTOMER EXPERIENCE PROFESSIONAL; Mercedes Cesar D.P.M. [place] [address] Patient Name: SOFIE ADRIAN MRN: [id number] date: 1955 Sex: F Assigned Patient Location: [facility] Current Patient Location: [facility] Accession/Order Number: [id number] Exam Date: 10/13/2024 12:03 Report Date: 10/13/2024 [...] Triplett M.D. 10/13/2024 12:08 PM Dictation Location: [place] [address] Electronically authenticated by: [id number] Y Date: 10/13/2024 12:08 Dictated By: Radha Triplett M.D. Signed By: 10/13/24 1210 DD/ 1208 TD/TT: Public Address Servicer: [facility] Radiology, Radiologi MD susy - 10/13/2024 [place] [address] XRay Report Signed Patient: SOFIE ADRIAN MR#: [id number] : 1955 Acct:[id number] Age/Sex: 69 / F ADM Date: 10/13/24 Loc: RAD Attending Dr: Mercedes Cesar D.P.M. Ordering Physician: Mercedes Cesar D.P.M. Date of Service: 10/13/24 Procedure(s): XR foot LT min 3V Accession Number(s): [id number] cc: Rosario Amezquita CUSTOMER EXPERIENCE PROFESSIONAL; Mercedes Cesar D.P.M. The [place] [address] Patient Name: SOFIE ADRIAN MRN: [facility]:[id number] date: 1955 Sex: F Assigned Patient Location: [facility] Current Patient Location: [facility] Accession/Order Number: [id number] Exam Date: 10/13/2024 12:03 Report Date: 10/13/2024 [...] Triplett M.D. 10/13/2024 12:08 PM Dictation Location: [place] [address] Electronically authenticated by: [id number] Y Date: 10/13/2024 12:08 Dictated By: Radha Triplett M.D. Signed By: 10/13/24 1210 DD/ 1208 TD/TT: Public Address Servicer: [facility] Radiology Study observation (narrative) [facility] XR FOOT LT MIN 3VOrdered By: Radiologist Radiology on 10-13-2024 [facility] Work Phone: XR FOOT RT MIN 3Von 10-07-19 [place] [address] XRay Report Signed Patient: SOFIE ADRIAN MR#: [id number] : 1955 Acct:[id number] Age/Sex: 69 / F ADM Date: 10/06/24 Loc: RAD Attending Dr: Mercedes Cesar D.P.M. Ordering Physician: Mercedes Cesar D.P.M. Date of Service: 10/06/24 Procedure(s): XR foot RT min 3V Accession Number(s): [id number] cc: Rosario Amezquita CUSTOMER EXPERIENCE PROFESSIONAL; Mercedes Cesar D.P.M. [place] [id number] Patient Name: SOFIE ADRIAN MRN: [facility]:[id number] date: 1955 Sex: F Assigned Patient Location: [facility] Current Patient Location: [facility] Accession/Order Number: [id number] Exam Date: 10/06/2024 15:21 Report Date: 10/06/2024 [...] Jr., D.O. 10/06/2024 3:23 PM Dictation Location: [place] [address] Electronically authenticated by: [id number] Y Date: 10/06/2024 15:23 Dictated By: Rigo Cesar M.D. Signed By: 10/06/24 1526 DD/ 1523 TD/TT: Public Address Servicer: [facility] Radiology, Radiologi MD susy - 10/06/2024 [place] [address] XRay Report Signed Patient: SOFIE ADRIAN MR#: [id number] : 1955 Acct:[id number] Age/Sex: 69 / F ADM Date: 10/06/24 Loc: ESDRAS Attending Dr: Mercedes Cesar D.P.M. Ordering Physician: Mercedes Cesar D.P.M. Date of Service: 10/06/24 Procedure(s): XR foot RT min 3V Accession Number(s): [id number] cc: Rosario Amezquita CUSTOMER EXPERIENCE PROFESSIONAL; Mercedes Cesar D.P.M. The [address] [address] Patient Name: SOFIE ADRIAN MRN: [facility]:[id number] date: 1955 Sex: F Assigned Patient Location: [facility] Current Patient Location: RAD Accession/Order Number: [id number] Exam Date: 10/06/2024 15:21 Report Date: 10/06/2024 [...] Jr., D.O. 10/06/2024 3:23 PM Dictation Location: [place] [address] Electronically authenticated by: [id number] Y Date: 10/06/2024 15:23 Dictated By: Rigo Cesar M.D. Signed By: 10/06/24 1526 DD/ 1523 TD/TT: Public Address Servicer: [facility] Radiology Study observation (narrative) [facility] XR FOOT RT MIN 3VOrdered By: Radiologist Radiology on 10-06-2024 [facility] [employer] Work Phone: XR DEXA AXIAL SKELETONon [place] [phone] XRay Report Signed Patient: SOFIE ADRIAN MR#: [id number] : 1955 Acct:[id number] Age/Sex: 68 / F ADM Date: 05/26/24 Loc: RAD Attending Dr: Rosario Amezquita NP Ordering Physician: Rosario Amezquita NP Date of Service: 05/26/24 Procedure(s): XR DEXA axial skeleton Accession Number(s): [id number] cc: Rosario Amezquita NP [address] [address] Patient Name: SOFIE ADRIAN MRN: [facility]:[id number] date: 1955 Sex: F Assigned Patient Location: [facility] Current Patient Location: [facility] Accession/Order Number: [id number] Exam Date: 05/26/2024 10:00 Report Date: 05/26/2024 12:26 At the request of: ROSARIO Yudelka AMEZQUITA Procedure: XR DEXA axial skeleton EXAMINATION: [...] prevention and treatment of osteoporosis. Osteoporos Int. 2021;33(10):2664-5049. doi: 10.1007/s15875-017-83610-x. Epub 2021Aug 22. Erratum in: Osteoporos Int. 2021Nov 21;: PMID: 90450103; PMCID: [id number]. Electronically authenticated by: ISAIAH ROJAS Date: 05/26/2024 12:26 Dictated By: Isaiah Rojas M.D. Signed By: 05/26/24 1228 DD/ 25 TD/TT: Public Address Servicer: [facility] Radiology, Radiologshannan jain MD - 05/26/2024 [place] [address] XRay Report Signed Patient: SOFIE ADRIAN MR#: [id number] : 1955 Acct:[id number] Age/Sex: 68 / F ADM Date: 05/26/24 Loc: RAD Attending Dr: Rosario Amezquita NP Ordering Physician: Rosario Amezquita NP Date of Service: 05/26/24 Procedure(s): XR DEXA axial skeleton Accession Number(s): [id number] cc: Rosario Amezquita NP The [place] [address] Patient Name: SOFIE ADRIAN MRN: [facility]:[id number] date: 1955 Sex: F Assigned Patient Location: [facility] Current Patient Location: [facility] Accession/Order Number: [id number] Exam Date: 05/26/2024 10:00 Report Date: 05/26/2024 [...] prevention and treatment of osteoporosis. Osteoporos Int. 2021;33(10):2991-3834. doi: 10.1007/w88558-120-13667-a. Epub 2021Aug 22. Erratum in: Osteoporos Int. 2021Nov 21;: PMID: 72764984; PMCID: [id number]. Electronically authenticated by: ISAIAH ROJAS Date: 05/26/2024 12:26 Dictated By: Isaiah Rojas M.D. Signed By: 05/26/24 1228 DD/ 1226 TD/TT: Public Address Servicer: [facility] Radiology Study observation (narrative) [facility] XR DEXA AXIAL SKELETONOrdere d By: Radiologist Radiology on 05-26-2024 [facility] Work Phone: No Panel Informationon 05-10 Interpretation and review of laboratory results Normal [facility] Rapid Influenza A Ag Negative Negative, Indeterminate [facility] Rapid Influenza B Ag Negative Negative, Indeterminate [facility] MG MAMM SCREEN 3D KARLOS CADon 07-21-2022 MG MAMM SCREEN 3D KARLOS CAD Patient: SOFIE ADRIAN Exam Date: 07/21/2022 : 1955 Gender:F Ordering : MONIQUE AMEZQUITA [facility] Admission #: [id number] Family : Order #: [id number] CLICK HERE TO VIEW EXAM RADIOLOGY REPORT [...] prostate cancer at age 75. LOCATION: [facility] BREAST COMPOSITION: Scattered areas fibroglandular density. FINDINGS: [...] M.D. on 07/21/2022 at 12:20 Normal [facility] Covid-19 PCR (CVDTBH)on 01-25 SARS-CoV-2 (COVID-19) RNA BOBO+probe Ql (Unsp spec) Not detected Normal NOT DETECTED [facility] Comment on above: Result Comment: This test is not yet bryson roved or cleared by the [place] FDA. When there are no FDA-approved or cleared tests available, and other criteria are met, FDA can make tests available under an emergency access mechanism called an Emergency Use Authorization (EUA). The EUA for this test is supported by the Vault Manager of Health and Human Service's (HHS's) declaration [...] with SARS-CoV-2. Performed By: #### C VDTB ####[facility] [address] [place] [address]Dr. Rashida Carcamo PAP ACOG PANEL 2: 30 to 65on 01-14-2022 . . Normal [facility] Comment on above: Performed By: #### [id number] ####[facility] [address] [place] [id number]. Rashida Carcamo Age Gdln ACOG Testing Comment Normal [facility] Comment on above: Result Comment: <21 or >65 or no age pro vided Performed By: #### [id number] ####[facility] [address] [place] [id number] Carcamo DIAGNOSIS: Comment Normal [facility] Comment on above: Result Comment: NEGATIVE FOR INTRAEPITHE LIAL LESION OR MALIGNANCY. CELLULAR CHANGES ASSOCIATED WITH ATROPHY ARE PRESENT. THIS SPECIMEN WAS RESCREENED PART OF OUR ENGINEERING PROJECT DESIGNER PROGRAM. Performed By: #### 4 [id number] ####[facility] [address] [place] [address]Dr. Rashida Carcamo Methodology: Comment Normal [facility] Comment on above: Result Comment: This liquid based ThinPr ep(R) pap test was screened with the use of an image guided system. Performed By: #### 4 [id number] ####[facility] [address] [place] [address]DrDallas Carcamo Note: Comment Normal [facility] Comment on above: Result Comment: The Pap smear is a scree sena test designed to aid in the detection of premalignant and malignant conditions of the uterine cervix. It is not a diagnostic procedure and should not be used as the sole means of detecting cervical cancer. Both false-positive and false-negative reports do occur. . Performed By: #### 4 [id number] ####[facility] [address] [place], [place] [address]DrDallas Carcamo Performed by: Comment Normal [facility] Comment on above: Result Comment: Sukumar Peraza, Cytotech nologist (ASCP) Performed By: #### 4 [id number] ####[facility] [address] [place], [place] [address]DrDallas Carcamo QC reviewed by: Comment Normal [facility] Comment on above: Result Comment: Neymar Urbano Sap Security Consultant (ASCP) Performed By: #### 4 [id number] ####[facility] [address] [place], [place] [address]DrDallas Carcamo Specimen adequacy: Comment Normal [facility] Comment on above: Result Comment: Satisfactory for evaluat ion. Endocervical component may not be distinguished in cases of atrophy. Performed By: #### 4 [id number] ####[facility] [address] [place], [place] [address]DrDallas Carcamo XR DEXA BONE DENSITYon 01-09 XR [...] ISAIAH ROJAS Date: 2022-01-09 10:53 Normal [facility] CBC W MANUAL DIFFon 01-07-20 22 ATYPICAL LYMPH # Normal [facility] Comment on above: Performed By: #### CBCBONY ####[facility] [address] [place] [address]Dr. Yilan Carcamo ATYPICAL LYMPH % Normal [facility] Comment on above: Performed By: #### CBCBONY ####[facility] [address] [place] [address]Dr. Yilan Carcamo BAND # Normal 0.0-0.3 [facility] Comment on above: Performed By: #### CBCBONY ####[facility] [address] [place] [address]Dr. Yilan Carcamo BAND % Normal 0-5 [facility] Comment on above: Performed By: #### JOHN ####[facility] [address] [place] [address]Dr. Yilan Carcamo BASOM # 0.00 103/ul Normal 0.00-0.10 [facility] Comment on above: Performed By: #### CBCBONY ####[facility] [place] [facility] Hpaiarwyfn68[address] [place] [address]Dr. Yilan Carcamo BASOM % 0.0 % Critically low 0.2-2.0 [facility] Comment on above: Performed By: #### CBCBONY ####[facility] [place] [facility] Enkjamiusc6[address] [place] [address]Dr. Yilan Carcamo BLAST # Normal [facility] Comment on above: Performed By: #### JOHN ####[facility] [place] [facility] Vvazzteakt4391 [place] [address]Dr. Yilan Carcamo BLAST % Normal [facility] Comment on above: Performed By: #### CBCMAN ####[facility] [place] [facility] Zrbxgwgwzv2027 [place] [address]Dr. Rashida Carcamo CORRECTED WBC Normal 4.0-11.0 [facility] Comment on above: Performed By: #### CBCMAN ####[facility] [place] [facility] Kcrrcmhezh0608 [place], [place] [address]Rk. Rashida Carcamo EOS # 0.00 103/ul Normal 0.00-0.70 [facility] Comment on above: Performed By: #### CBCMAN ####[facility] [place] [facility] Dblhbwwgdt7899 [place] [address]Dr. Rashida Carcamo EOS% 0.0 % Critically low 0.9-7.0 [facility] Comment on above: Performed By: #### CBCBONY ####[facility] [place] [facility] Knvphuocyg8324 [place] [address]Dr. Rashida Carcamo HCT 37.0 % Normal 36.0-48.0 [facility] Comment on above: Performed By: #### CBCBONY ####[facility] [place] [facility] Wamglpaatw6751 [place] [address]Dr. Rashida Carcamo HGB 12.0 g/dl Normal 12.0-16.0 [facility] Comment on above: Performed By: #### CBCBONY ####[facility] [place] [facility] Aakbnrxbla5677 [place] [address]Dr. Rashida Carcamo LYMPHM # 0.70 103/ul Critically low 1.20-3.80 [facility] Comment on above: Performed By: #### CBCBONY ####[facility] [place] [facility] Hwcieazvyw1305 [place] [address]Dr. Rashida Carcamo LYMPHM% 25.0 % Normal 20.5-60.0 [facility] Comment on above: Performed By: #### CBCMAN ####[facility] [place] [facility] Yxthlhfhjr4199 [place] [address]Dr. Rahsida Carcamo MCH 30.4 pg Normal 26.7-34.0 [facility] Comment on above: Performed By: #### CBCBONY ####[facility] [place] [facility] Rxhuenkdjj0176 [place] [address]Dr. Rashida Carcamo MCHC 32.4 g/dl Normal 29.9-35.2 [facility] Comment on above: Performed By: #### CBCBONY ####[facility] [place] [facility] Ijvpbnqldz9404 [place] [address]Dr. Rashida Carcamo MCV 93.7 fL Normal 81.0-99.0 [facility] Comment on above: Performed By: #### CBCBONY ####[facility] [place] [facility] Exzzuyiajt3741 [place] [address]Dr. Rashida Carcamo METAMYELOCYTE # Normal [facility] Comment on above: Performed By: #### CBCBONY ####[facility] [place] [facility] Vpcrafwube5154 [place] [address]Dr. Rashida Carcamo METAMYELOCYTE % Normal [facility] Comment on above: Performed By: #### CBCBONY ####[facility] [place] [facility] Zkoumgesxo4917 [place] [address]Dr. Rashida Carcamo MONOM# 0.22 103/ul Critically low 0.30-0.80 [facility] Comment on above: Performed By: #### CBCBONY ####[facility] [place] [facility] Jdcflkrnin3028 [place] [address]Dr. Rashida Carcamo MONOM% 8.0 % Normal 1.7-12.0 [facility] Comment on above: Performed By: #### CBCBONY ####[facility] [place] [facility] Jbqqhexpja6472 [place] [address]Dr. Rashida Carcamo MPV 10.8 fL Normal 9.5-13.5 [facility] Comment on above: Performed By: #### CBCBONY ####[facility] [place] [facility] Wjzdcnvjja9856 [place] [address]Dr. Rashida Carcamo MYELOCYTE # Normal [facility] Comment on above: Performed By: #### CBCBONY ####[facility] [place] [facility] Wqfkglguqc7566 [place] [address]Dr. Rashida Carcamo MYELOCYTE % Normal [facility] Comment on above: Performed By: #### CBCMAN ####[facility] [place] [facility] Wpriwgyncf7568 [place] [address]Dr. Rashida Carcamo NRBC Normal [facility] Comment on above: Performed By: #### CBCMAN ####[facility] [place] [facility] Ggwifhhvgb0848 [place] [address]Dr. Rashida Carcamo PLT 154 103/ul Normal 150-450 [facility] Comment on above: Performed By: #### CBCMAN ####[facility] [place] [facility] Afzhfnnhkq1069 [place] [address]Dr. Rashida Carcamo RBC 3.95 106/ul Critically low 4.20-5.40 [facility] Comment on above: Performed By: #### CBCMAN ####[facility] [place] [facility] Ppfxaarmbl9753 [place] [address]Dr. Rashida Carcamo RDW 13.2 % Normal 11.0-15.0 [facility] Comment on above: Performed By: #### CBCMAN ####[facility] [place] [facility] Vzvzdybmhr7948 [place] [address]Dr. Rashida Carcamo SEG # 1.88 103/ul Normal 1.40-6.50 [facility] Comment on above: Performed By: #### CBCMAN ####[facility] [place] [facility] Slqbvzbgzs8810 [place] [address]Dr. Rashida Carcamo SEG % 67.0 % Normal 43.0-75.0 [facility] Comment on above: Performed By: #### CBCMAN ####[facility] [place] [facility] Niojeekvku6411 [place] [address]Dr. Rashida Carcamo WBC 2.8 103/ul Critically low 4.0-11.0 [facility] Comment on above: Performed By: #### CBCMAN ####[facility] [place] [facility] Kuagnryigb2459 [place] [address]Dr. Rashida Carcamo CBC AUTO DIFFon 12-03-2021 BASO # 0.1 103/ul Normal 0.0-0.1 [facility] Comment on above: Performed By: #### CBC ####[facility] ital Bankoxobrp9203 [place] [address]Dr. Rashida Carcamo Basophils/100 WBC (Bld) 1.9 % Normal 0.2-2.0 [facility] Comment on above: Performed By: #### CBC ####[facility] ital Zsigirabhb7605 [place] [address]Dr. Rashida Carcamo EO # 0.2 103/ul Normal 0.0-0.7 [facility] Comment on above: Performed By: #### CBC ####[facility] ital Qknbblglbc2732 [place] [address]Dr. Rashida Carcamo Eosinophils/100 WBC (Bld) 5.6 % Normal 0.9-7.0 [facility] Comment on above: Performed By: #### CBC ####[facility] Bvztgvipyx[address] [place], [place] [address]Dr. Rashida Carcamo Erythrocyte distribution width (RBC) [Ratio] 13.6 % Normal 11.0-15.0 [facility] Comment on above: Performed By: #### CBC ####[facility] Pdcdxwsmjl[address] [place], [place] [address]Dr. Rashida Carcamo Hematocrit (Bld) [Volume fraction] 38.0 % Normal 36.0-48.0 [facility] Comment on above: Performed By: #### CBC ####[facility] Tltrtfgbgh[address] [place], [place] [address]Dr. Rashida Carcamo Hemoglobin (Bld) [Mass/Vol] 11.7 g/dL Critically low 12.0-16.0 [facility] Comment on above: Performed By: #### CBC ####[facility] ital Pxfzqltpuk5958 [place] [address]Dr. Rashida Carcamo IG # 0.00 10e3/ul Normal 0.00-0.03 [facility] Comment on above: Performed By: #### CBC ####[facility] ital Wvpmuihfwg[address] [place], [place] [address]Dr. Rashida Carcamo IG % 0.0 % Normal 0.0-0.5 [facility] Comment on above: Performed By: #### CBC ####[facility] ital Pcjoenfgln4890 [place] [address]Dr. Keniaflory Carcamo LYMPH # 0.8 103/ul Critically low 1.2-3.8 [facility] Comment on above: Performed By: #### CBC ####[facility] Nsqtsobcwa5704 [place] [address]Dr. Rashida Carcamo Lymphocytes/100 WBC (Bld) 29.3 % Normal 20.5-60.0 [facility] Comment on above: Performed By: #### CBC ####[facility] ital Vnijupkrdh5280 [place] [address]Dr. Rashida Carcamo MANUAL DIFF REQ NO Normal [facility] Comment on above: Performed By: #### CBC ####[facility] ital Kpgoicyrsc2172 [place] [address]Dr. Rashida Carcamo MCH (RBC) [Entitic mass] 29.7 pg Normal 26.7-34.0 [facility] Comment on above: Performed By: #### CBC ####[facility] Rplzqlkzuu7338 [place] [address]Dr. Rashida Carcamo MCHC (RBC) [Mass/Vol] 30.8 g/dL Normal 29.9-35.2 [facility] Comment on above: Performed By: #### CBC ####[facility] ital Soelqyarkw2667 [place] [address]Dr. Rashida Carcamo MCV (RBC) [Entitic vol] 96.4 fL Normal 81.0-99.0 [facility] Comment on above: Performed By: #### CBC ####[facility] Stvnyxxmkx7066 [place] [address]Dr. Rashida Carcamo MONO # 0.2 103/ul Critically low 0.3-0.8 [facility] Comment on above: Performed By: #### CBC ####[facility] Frflyelajo0380 [place] [address]Dr. Rashida Carcamo Monocytes/100 WBC (Bld) 7.5 % Normal 1.7-12.0 [facility] Comment on above: Performed By: #### CBC ####[facility] ital Ljigwscufx2242 [place] [address]Dr. Rashida Carcamo NEUT # 1.5 103/ul Normal 1.4-6.5 [facility] Comment on above: Performed By: #### CBC ####[facility] ital Slybsjgzsy9470 [place] [address]Dr. Rashida Carcamo Neutrophils/100 WBC (Bld) 55.7 % Normal 43.0-75.0 [facility] Comment on above: Performed By: #### CBC ####[facility] ital Mewwaehxns9015 [place] [address]Dr. Rashida Carcamo Platelet mean volume (Bld) [Entitic vol] 10.6 fL Normal 9.5-13.5 [facility] Comment on above: Performed By: #### CBC ####[facility] ital Dhjxamjeif6648 [place] [address]Dr. Rashida Carcamo PLT 165 103/ul Normal 150-450 [facility] Comment on above: Performed By: #### CBC ####[facility] ital Anmumwwgel8555 [place] [address]Dr. Rashida Carcamo RBC 3.94 106/ul Critically low 4.20-5.40 [facility] Comment on above: Performed By: #### CBC ####[facility] Qivvajecev4861 [place] [address]Dr. Keniaflory Carcamo WBC 2.7 103/ul Critically low 4.0-11.0 [facility] Comment on above: Performed By: #### CBC ####[facility] ital Ixvrixwoqu2681 [place] [address]Dr. Rashida Carcamo IRONon 12-03-2021 Iron [Mass/Vol] 85.0 ug/dL Normal 50.0-170.0 [facility] Comment on above: Performed By: #### IRON ####[facility] pital Diwnyimvvp9077 [place] [address]Dr. Rashida Carcamo Basic metabolic 2000 panelon 10-22-2021 Anion gap [Moles/Vol] 16 mmol/L Normal 9-18 [facility] Comment on above: Order Comment: Specimen Type: BLOOD SPEC IMEN Ordering Facility: [facility] Address: [address] [place], [place] [phone] Performed By: #### 2 777-1, , #### [facility] CLIA [id number] [address] [place] [address] [place] Calcium [Mass/Vol] 9.5 mg/dL Normal 8.5-10.2 [facility] Comment on above: Order Comment: Specimen Type: BLOOD SPEC IMEN Ordering Facility: [facility] Address: [address] [place], [place] [phone] Performed By: #### 2 777-1, , #### [facility] CLIA [id number] [address] [place] [address] [place] Chloride [Moles/Vol] 100 mmol/L Normal 97-105 [facility] Comment on above: Order Comment: Specimen Type: BLOOD SPEC IMEN Ordering Facility: [facility] Address: [address] [place], [place] [phone] Performed By: #### 2 777-1, , #### [facility] CLIA [id number] [address] [place] [address] [place] CO2 [Moles/Vol] 29 mmol/L Normal 22-30 [facility] Comment on above: Order Comment: Specimen Type: BLOOD SPEC IMEN Ordering Facility: [facility] Address: [address] [place], [place] [phone] Performed By: #### 2 777-1, , #### [facility] CLIA [id number] [address] [place] [address] [place] Creatinine [Mass/Vol] 0.58 mg/dL Normal 0.58-0.96 [facility] Comment on above: Order Comment: Specimen Type: BLOOD SPEC IMEN Ordering Facility: [facility] Address: [address] [place] [phone] Performed By: #### 2 777-1, 71655-9, 54394-2 #### [facility] CLIA [id number] [address] [place] [address] [place] ESTIMATED GLOMERULAR FILTRATION RATE 100 mL/min/1.73m??? Normal >=60 [facility] Comment on above: Order Comment: Specimen Type: BLOOD SPEC IMEN Ordering Facility: [facility] Address: [address] [place] [phone] Result Comment: Humaira mated Glomerular Filtration Rate [...] actual GFR. Performed By: #### 2 777-1, 91325-5, 09443-4 #### [facility] CLIA [id number] [address] [place] [address] [place] Glucose [Mass/Vol] 90 mg/dL Normal 74-99 [facility] Comment on above: Order Comment: Specimen Type: BLOOD SPEC IMEN Ordering Facility: [facility] Address: [address] [place] [phone] Result Comment: The [place] [employer] (ADA) provides guidance for cutoff [...] Standards of Medical Care in Diabetes 2016, [place] [employer]. Diabetes Care. 2016.39(Suppl 1). Performed By: #### 2 777-1, , 67102-3 #### [facility] CLIA [id number] [address] [place] [address] [place] Potassium [Moles/Vol] 3.2 mmol/L Low 3.7-5.1 [facility] Comment on above: Order Comment: Specimen Type: BLOOD SPEC IMEN Ordering Facility: [facility] Address: [address] [place], [place] [address] Performed By: #### 2 777-1, , 06791-1 #### [facility] CLIA [id number] [address] [place] [address] [place] Sodium [Moles/Vol] 145 mmol/L High 136-144 [facility] Comment on above: Order Comment: Specimen Type: BLOOD SPEC IMEN Ordering Facility: [facility] Address: [address] [place] [address] Performed By: #### 2 777-1, , 90509-7 #### [facility] CLIA [id number] [address] [place] [address] [place] Urea nitrogen [Mass/Vol] 6 mg/dL Low 7-21 [facility] Comment on above: Order Comment: Specimen Type: BLOOD SPEC IMEN Ordering Facility: [facility] Address: [address] [place], [place] [address] Performed By: #### 2 777-1, , 94337-2 #### [facility] CLIA [id number] [address] [place] [address] [place] CBC panel Auto (Bld)on 10-22 Erythrocyte distribution width (RBC) [Ratio] 13.6 % Normal 11.5-15.0 [facility] Comment on above: Order Comment: Specimen Type: BLOOD SPEC IMEN Ordering Facility: [facility] Address: [address] [place], [place] [address] Performed By: #### 5 8410-2 #### [facility] CLIA [id number] [address] [place] [address] [place] Hematocrit (Bld) [Volume fraction] 40.4 % Normal 36.0-46.0 [facility] Comment on above: Order Comment: Specimen Type: BLOOD SPEC IMEN Ordering Facility: [facility] Address: [address] [place], [place] [address] Performed By: #### 5 8410-2 #### [facility] CLIA [id number] [address] [place] [address] [place] Hemoglobin (Bld) [Mass/Vol] 12.9 g/dL Normal 11.5-15.5 [facility] Comment on above: Order Comment: Specimen Type: BLOOD SPEC IMEN Ordering Facility: [facility] Address: [address] [place], [place] [address] Performed By: #### 5 8410-2 #### [facility] CLIA [id number] [address] [place] [address] [place] MCH (RBC) [Entitic mass] 28.7 pg Normal 26.0-34.0 [facility] Comment on above: Order Comment: Specimen Type: BLOOD SPEC IMEN Ordering Facility: [facility] Address: [address] [place], [place] [address] Performed By: #### 5 8410-2 #### [facility] CLIA [id number] [address] [place] [address] [place] MCHC (RBC) [Mass/Vol] 31.9 g/dL Normal 30.5-36.0 [facility] Comment on above: Order Comment: Specimen Type: BLOOD SPEC IMEN Ordering Facility: [facility] Address: [address] [place], [place] [address] Performed By: #### 5 8410-2 #### [facility] CLIA [id number] [address] [place] [address] [place] MCV (RBC) [Entitic vol] 90.0 fL Normal 80.0-100.0 [facility] Comment on above: Order Comment: Specimen Type: BLOOD SPEC IMEN Ordering Facility: [facility] Address: [address] [place], [place] [address] Performed By: #### 5 8410-2 #### [facility] CLIA [id number] [address] [place] [address] [place] Nucleated RBC (Bld) [#/Vol] 10*3/uL Normal <0.01 [facility] Comment on above: Order Comment: Specimen Type: BLOOD SPEC IMEN Ordering Facility: [facility] Address: [address] [place], [place] [address] Performed By: #### 5 8410-2 #### [facility] CLIA [id number] [address] [place] [address] [place] Platelet mean volume (Bld) [Entitic vol] 10.8 fL Normal 9.0-12.7 [facility] Comment on above: Order Comment: Specimen Type: BLOOD SPEC IMEN Ordering Facility: [facility] Address: [address] [place], [place] [address] Performed By: #### 5 8410-2 #### [facility] CLIA [id number] [address] [place] [address] [place] Platelets (Bld) [#/Vol] 155 10*3/uL Normal 150-400 [facility] Comment on above: Order Comment: Specimen Type: BLOOD SPEC IMEN Ordering Facility: [facility] Address: [address] [place] [address] Performed By: #### 5 8410-2 #### [facility] CLIA [id number] [address] [place] [address] [place] RBC (Bld) [#/Vol] 4.49 10*6/uL Normal 3.90-5.20 [facility] Comment on above: Order Comment: Specimen Type: BLOOD SPEC IMEN Ordering Facility: [facility] Address: [address] [place] [address] Performed By: #### 5 8410-2 #### [facility] CLIA [id number] [address] [place] [address] [place] WBC (Bld) [#/Vol] 2.98 10*3/uL Low 3.70-11.00 [facility] Comment on above: Order Comment: Specimen Type: BLOOD SPEC IMEN Ordering Facility: [facility] Address: [address] [place] [address] Performed By: #### 5 8410-2 #### [facility] CLIA [id number] [address] [place] [address] [facility] CNDSon 10-22-2021 CNDS HNO ID: [id number] Author: Joceline Liang MD Service: General Surgery [...] has been waiting to be transferred to [facility] since then. Since presenting to [...] was tolerating PO. She was advanced to [facility] and discharged home later that day. ? [...] PO QD SIGNATURE: Joceline Liang MD PAGER: [phone] DATE: October 22, 2021 TIME: 11:22 AM Normal [facility] Magnesium SerPl-mCncon 10-22 Magnesium [Mass/Vol] 1.6 mg/dL Low 1.7-2.3 [facility] Comment on above: Order Comment: Specimen Type: BLOOD SPEC IMEN Ordering Facility: [facility] Address: [address] [place] [phone] Performed By: #### 2 777-1, 81918-1, 41155-9 #### [facility] CLIA [id number] [address] [place] [address] [place] Phosphate SerPl-mCncon 10-22 Phosphate [Mass/Vol] 3.0 mg/dL Normal 2.7-4.8 [facility] Comment on above: Order Comment: Specimen Type: BLOOD SPEC IMEN Ordering Facility: [facility] Address: [address] [place] [address] Performed By: #### 2 777-1, 79556-8, 53134-8 #### [facility] CLIA [id number] [address] [place] [address] [place] VDUVLSon 10-21-2021 VDUVLS Non-Invasive Vascula r Laboratory [facility] J35 Lower Extremity Venous Duplex Bilateral/Complete [...] physician: Pavithra Barker MD, NOELLE, RVT Final [id number] oDynamicsSISUID See Link below for Image Normal [facility] XR SMALL BOWEL SERIESon 09-26 XR [...] small bowel. IMPRESSION: RESOLVING SMALL BOWEL OBSTRUCTION. Public Address Servicer: [facility] Transcribe Date/Time: Oct 21 2021 2:44P Dictated by : JESSICA ADRIAN MD This examination was interpreted and the report reviewed and electronically signed by: JESSICA ADRIAN MD on Oct 21 2021 2:45PM EST [id number] Normal [facility] CBC panel Auto (Bld)on 10-20 Erythrocyte distribution width (RBC) [Ratio] 14.6 % Normal 11.5-15.0 [facility] Comment on above: Order Comment: Specimen Type: BLOOD SPEC IMEN Ordering Facility: [facility] Address: [address] [place] [phone] Performed By: #### 5 8410-2 #### [facility] CLIA [id number] [address] [place] [address] [place] Hematocrit (Bld) [Volume fraction] 33.4 % Low 36.0-46.0 [facility] Comment on above: Order Comment: Specimen Type: BLOOD SPEC IMEN Ordering Facility: [facility] Address: [address] [place] [address] Performed By: #### 5 8410-2 #### [facility] CLIA [id number] [address] [place] [address] [place] Hemoglobin (Bld) [Mass/Vol] 10.4 g/dL Low 11.5-15.5 [facility] Comment on above: Order Comment: Specimen Type: BLOOD SPEC IMEN Ordering Facility: [facility] Address: [address] [place] [address] Performed By: #### 5 8410-2 #### [facility] CLIA [id number] [address] [place] [address] [place] MCH (RBC) [Entitic mass] 29.1 pg Normal 26.0-34.0 [facility] Comment on above: Order Comment: Specimen Type: BLOOD SPEC IMEN Ordering Facility: [facility] Address: [address] [place] [address] Performed By: #### 5 8410-2 #### [facility] CLIA [id number] [address] [place] [address] [place] MCHC (RBC) [Mass/Vol] 31.1 g/dL Normal 30.5-36.0 [facility] Comment on above: Order Comment: Specimen Type: BLOOD SPEC IMEN Ordering Facility: [facility] Address: [address] [place] [address] Performed By: #### 5 8410-2 #### [facility] CLIA [id number] [address] [id number] [address] [place] MCV (RBC) [Entitic vol] 93.3 fL Normal 80.0-100.0 [facility] Comment on above: Order Comment: Specimen Type: BLOOD SPEC IMEN [facility] [facility] Address: [address] [place] [phone] Performed By: #### 5 8410-2 #### [facility] CLIA [id number] [address] [place] [address] [place] Nucleated RBC (Bld) [#/Vol] 10*3/uL Normal <0.01 [facility] Comment on above: Order Comment: Specimen Type: BLOOD SPEC IMEN Ordering Facility: [facility] Address: [address] [place], [place] [phone] Performed By: #### 5 8410-2 #### [facility] CLIA [id number] [address] [place] [address] [place] Platelet mean volume (Bld) [Entitic vol] 10.7 fL Normal 9.0-12.7 [facility] Comment on above: Order Comment: Specimen Type: BLOOD SPEC IMEN Ordering Facility: [facility] Address: [address] [place] [phone] Performed By: #### 5 8410-2 #### [facility] CLIA [id number] [address] [place] [address] [place] Platelets (Bld) [#/Vol] 128 10*3/uL Low 150-400 [facility] Comment on above: Order Comment: Specimen Type: BLOOD SPEC IMEN Ordering Facility: [facility] Address: [address] [place] [phone] Performed By: #### 5 8410-2 #### [facility] CLIA [id number] [address] [place] [address] [place] RBC (Bld) [#/Vol] 3.58 10*6/uL Low 3.90-5.20 [facility] Comment on above: Order Comment: Specimen Type: BLOOD SPEC IMEN Ordering Facility: [facility] Address: [address] [place], [place] [phone] Performed By: #### 5 8410-2 #### [facility] CLIA [id number] [address] [place] [address] [place] WBC (Bld) [#/Vol] 2.96 10*3/uL Low 3.70-11.00 [facility] Comment on above: Order Comment: Specimen Type: BLOOD SPEC IMEN Ordering Facility: [facility] Address: [address] [place], [place] [phone] Performed By: #### 5 8410-2 #### [facility] CLIA [id number] [address] [place] [address] [place] Comprehensive metabolic 2000 panelon 10-20-2021 Albumin [Mass/Vol] 3.7 g/dL Low 3.9-4.9 [facility] Comment on above: Order Comment: Specimen Type: BLOOD SPEC IMEN Ordering Facility: [facility] Address: [address] [place], [place] [phone] Performed By: #### 2 777-1, 35254-0, 06438-7 #### [facility] CLIA [id number] [address] [place] [address] [place] ALP [Catalytic activity/Vol] 48 U/L Normal 34-123 [facility] Comment on above: Order Comment: Specimen Type: BLOOD SPEC IMEN Ordering Facility: [facility] Address: [address] [place] [address] Performed By: #### 2 777-1, 44362-1, 39002-0 #### [facility] CLIA [id number] [address] [place] [address] [place] ALT [Catalytic activity/Vol] 11 U/L Normal 7-38 [facility] Comment on above: Order Comment: Specimen Type: BLOOD SPEC IMEN Ordering Facility: [facility] Address: [address] [place], [place] [phone] Performed By: #### 2 777-1, , 18355-8 #### [facility] CLIA [id number] [address] [place] [address] [place] Anion gap [Moles/Vol] 14 mmol/L Normal 9-18 [facility] Comment on above: Order Comment: Specimen Type: BLOOD SPEC IMEN Ordering Facility: [facility] Address: [address] [place], [place] [phone] Performed By: #### 2 777-1, , 19423-8 #### [facility] CLIA [id number] [address] [place] [address] [place] AST [Catalytic activity/Vol] 16 U/L Normal 13-35 [facility] Comment on above: Order Comment: Specimen Type: BLOOD SPEC IMEN Ordering Facility: [facility] Address: [address] [place] [address] Performed By: #### 2 777-1, , 68315-7 #### [facility] CLIA [id number] [address] [place] [address] [place] Bilirubin [Mass/Vol] 0.6 mg/dL Normal 0.2-1.3 [facility] Comment on above: Order Comment: Specimen Type: BLOOD SPEC IMEN Ordering Facility: [facility] Address: [address] [place], [place] [phone] Performed By: #### 2 777-1, , 22340-7 #### [facility] CLIA [id number] [address] [place] [address] [place] Calcium [Mass/Vol] 8.8 mg/dL Normal 8.5-10.2 [facility] Comment on above: Order Comment: Specimen Type: BLOOD SPEC IMEN Ordering Facility: [facility] Address: [address] [place], [place] [phone] Performed By: #### 2 777-1, , #### [facility] CLIA [id number] [address] [place] [address] [place] Chloride [Moles/Vol] 104 mmol/L Normal 97-105 [facility] Comment on above: Order Comment: Specimen Type: BLOOD SPEC IMEN Ordering Facility: [facility] Address: [address] [place], [place] [phone] Performed By: #### 2 777-1, , #### [facility] CLIA [id number] [address] [place] [address] [place] CO2 [Moles/Vol] 24 mmol/L Normal 22-30 [facility] Comment on above: Order Comment: Specimen Type: BLOOD SPEC IMEN Ordering Facility: [facility] Address: [address] [place], [place] [phone] Performed By: #### 2 777-1, , #### [facility] CLIA [id number] [address] [place] [address] [place] Creatinine [Mass/Vol] 0.56 mg/dL Low 0.58-0.96 [facility] Comment on above: Order Comment: Specimen Type: BLOOD SPEC IMEN Ordering Facility: [facility] Address: [address] [place], [place] [phone] Performed By: #### 2 777-1, , #### [facility] CLIA [id number] [address] [place] [address] [place] ESTIMATED GLOMERULAR FILTRATION RATE 101 mL/min/1.73m??? Normal >=60 [facility] Comment on above: Order Comment: Specimen Type: BLOOD SPEC IMEN Ordering Facility: [facility] Address: [address] [place], [place] [phone] Result Comment: Humaira mated Glomerular Filtration Rate [...] GFR. Performed By: #### 2 777-1, , 07226-2 #### [facility] CLIA [id number] [address] [place] [address] [place] Glucose [Mass/Vol] 100 mg/dL High 74-99 [facility] Comment on above: Order Comment: Specimen Type: BLOOD SPEC IMEN Ordering Facility: [facility] Address: [address] [place] [address] Result Comment: The [place] [employer] (ADA) provides guidance for cutoff [...] Standards of Medical Care in Diabetes 2016, [place] [employer]. Diabetes Care. 2016.39(Suppl 1). Performed By: #### 2 777-1, , 01015-9 #### [facility] CLIA [id number] [address] [place] [address] [place] Potassium [Moles/Vol] 2.7 mmol/L Low 3.7-5.1 [facility] Comment on above: Order Comment: Specimen Type: BLOOD SPEC IMEN Ordering Facility: [facility] Address: [address] [place] [phone] Performed By: #### 2 777-1, , 86996-1 #### [facility] CLIA [id number] [address] [place] [address] [place] Protein [Mass/Vol] 6.0 g/dL Low 6.3-8.0 [facility] Comment on above: Order Comment: Specimen Type: BLOOD SPEC IMEN Ordering Facility: [facility] Address: [address] [place] [address] Performed By: #### 2 777-1, , 48741-3 #### [facility] CLIA [id number] [address] [place] [address] [place] Sodium [Moles/Vol] 142 mmol/L Normal 136-144 [facility] Comment on above: Order Comment: Specimen Type: BLOOD SPEC IMEN Ordering Facility: [facility] Address: [address] [place] [address] Performed By: #### 2 777-1, , 58239-7 #### [facility] CLIA [id number] [address] [place] [address] [place] Urea nitrogen [Mass/Vol] 12 mg/dL Normal 7-21 [facility] Comment on above: Order Comment: Specimen Type: BLOOD SPEC IMEN Ordering Facility: [facility] Address: [address] [place] [address] Performed By: #### 2 777-1, , 39779-3 #### [facility] CLIA [id number] [address] [place] [address] [place] Lactate (Bld) [Moles/Vol]on 10-20-2021 Lactate [Moles/Vol] 0.5 mmol/L Normal 0.5-2.2 [facility] Comment on above: Order Comment: Specimen Type: BLOOD SPEC IMEN Ordering Facility: [facility] Address: [address] [place] [address] Performed By: #### 2 777-1, , 07904-7 #### [facility] CLIA [id number] [address] [place] [address] [place] Magnesium SerPl-mCncon 10-20 Magnesium [Mass/Vol] 2.0 mg/dL Normal 1.7-2.3 [facility] Comment on above: Order Comment: Specimen Type: BLOOD SPEC IMEN Ordering Facility: [facility] Address: [address] [place] [address] Performed By: #### 2 777-1, 27355-6, 05676-1 #### [facility] CLIA [id number] [address] [place] [address] [facility] PT panel Coag (PPP)on 2021 INR Coag (PPP) [Relative time] 1.1 {INR} Normal 0.9-1.3 [facility] Comment on above: Order Comment: Specimen Type: BLOOD SPEC IMEN Ordering Facility: [facility] Address: [address] [place] [address] Result Comment: Rosalind min K Antagonist (VKA) Therapeutic Range: INR 2 to 3 (Target INR of 2.5) Note: For patients treated with VKA drugs, such as warfarin, the [place] [employer] 2012 Guideline recommends [...] GH, et al. Chest 2012, 141:7S-47S Nadeen LIU et al. [facility] 2017, 70: 252-289 Performed By: #### 2 777-1, 82128-0, 27384-0 #### [facility] CLIA [id number] [address] [place] [address] [place] PT Coag (PPP) [Time] 11.9 s Normal 9.7-13.0 [facility] Comment on above: Order Comment: Specimen Type: BLOOD SPEC IMEN Ordering Facility: [facility] Address: [address] [place] [address] Performed By: #### 2 777-1, , 18124-4 #### [facility] IA [id number] [address] [place] [address] [place] Phosphate SerPl-mCncon 10-20 Phosphate [Mass/Vol] 2.0 mg/dL Low 2.7-4.8 [facility] Comment on above: Order Comment: Specimen Type: BLOOD SPEC IMEN Ordering Facility: [facility] Address: [address] [place] [address] Performed By: #### 2 777-1, , 64747-2 #### [facility] CLIA [id number] [address] [place] [address] [place] SARS-CoV-2 RNA Resp Ql BOBO+p robeon 10-20-2021 SARS-CoV-2 (COVID-19) RNA BOBO+probe Ql (Resp) COVID 19 RESULT: SARS-CoV-2 (Agent of COVID-19) Not Detected by RT-PCR or equivalent method. This test has been authorized by FDA under an Emergency Use Authorization (EUA). Normal [facility] Comment on above: Performed By: #### 2777-1, , 2431 1-2 #### [facility] CLIA [id number] [address] [place] [address] [place] TYPE + SCREENon 10-20-2021 ABO A Normal [facility] Comment on above: Order Comment: Specimen Type: BLOOD SPEC IMEN Ordering Facility: [facility] Address: [address] [place] [address] Performed By: #### T SCR #### [facility] CLIA [id number] [address] [place] [address] [place] HISTORICAL AB SCR STATUS Negative Normal [facility] Comment on above: Order Comment: Specimen Type: BLOOD SPEC IMEN Ordering Facility: [facility] Address: [address] [place] [address] Performed By: #### T SCR #### [facility] CLIA [id number] [address] [place] [address] [place] Rh Nom (Bld) Negative Normal [facility] Comment on above: Order Comment: Specimen Type: BLOOD SPEC IMEN Ordering Facility: [facility] Address: [address] [place] [address] Performed By: #### T SCR #### [facility] CLIA [id number] [address] [place] [address] [place] TYPE AND SCREEN EXPIRATION 10/22/2021 23:59 Normal [facility] Comment on above: Order Comment: Specimen Type: BLOOD SPEC IMEN Ordering Facility: [facility] Address: [address] [place] [address] Performed By: #### T SCR #### [facility] CLIA [id number] [address] [place] [address] [place] aPTT PPPon 10-20-2021 aPTT Coag (PPP) [Time] 26.6 s Normal 23.0-32.4 [facility] Comment on above: Order Comment: Specimen Type: BLOOD SPEC IMEN Ordering Facility: [facility] Address: [address] [place] [address] Performed By: #### 2 777-1, 54556-7, 97251-2 #### [facility] CLIA [id number] [address] [place] [address] [place] HISTORY PHYSICALon 2 HISTORY PHYSICAL HNO ID: [id number] Author: [place]ia Gilmore MD Service: General Surgery [...] old female who presents as transfer from [facility] for concern for SBO. She has hx [...] has been waiting to be transferred to [facility] since then. Since presenting to [facility] hospital on day 1 of her symptomology, [...] mg tablet, (more content not included)... Normal [facility] XR ABDOMEN 1V SUPINEon 10-19 XR [...] Degenerative changes and dextroscoliosis of the spine. Public Address Servicer: PSCSophia Transcribe Date/Time: Oct 19 2021 7:02P Dictated by : JAN HOLLIDAY MD This examination was interpreted and the report reviewed and electronically signed by: JAN HOLLIDAY MD on Oct 19 2021 7:04PM EST [id number] [facility] AMYLASEon 10-18-2021 Amylase [Catalytic activity/Vol] 46 U/L Normal 25-115 [facility] Comment on above: Performed By: #### DAVID, CMADM, LIPA, CMP #### [facility] [address] [address] [address] Rashida Carcamo CARDIAC JESSICA ADMITon 022 CK [Catalytic activity/Vol] 155 U/L Normal 26-192 [facility] Comment on above: Performed By: #### DAVID, CMADM, LIPA, CMP #### [facility] [address] [address] [address] Rashida Carcamo CK.MB [Mass/Vol] 0.64 ng/mL Normal <=3.60 [facility] Comment on above: Performed By: #### DAVID, CMADM, LIPA, CMP #### [facility] [address] [place] [address] Dr. Rashida Carcamo HSTROP <4.0 Normal 4.0-51.3 [facility] Comment on above: Result Comment: CUT-OFF POINTS HAVE BEEN ESTABLISHED BASED ON THE FOURTH UNIVERSAL DEFINITIONS OF MYOCARDIAL INFARCTION. THE UPPER REFERENCE LIMIT (URL) OF TROPONIN, DEFINED THE 99TH PERCENTILE OF cTnI DISTRIBUTION IN A REFERENCE POPULATION, HAS BEEN CONFIRMED THE DECISION THRESHOLD FOR CA DIAGNOSIS. Performed By: #### A MY, CMADM, LIPA, CMP #### [facility] [address] [place] [address] Dr. Rashida Carcamo ADRIANA 49 ng/mL Normal 9-82 [facility] Comment on above: Performed By: #### DAVID, CMADM, LIPA, CMP #### [facility] [address] [address] [address] Rashida Carcamo CBC W MANUAL DIFFon 10-19-19 22 ATYPICAL LYMPH # Normal [facility] Comment on above: Performed By: #### CBCMAN #### [facility] [address] [place] [address] Dr. Rashida Carcamo ATYPICAL LYMPH % Normal [facility] Comment on above: Performed By: #### CBCMAN #### [facility] [address] [address] [address] Rashida Carcamo BAND # 0.1 103/ul Normal 0.0-0.3 [facility] Comment on above: Performed By: #### CBCBONY #### [facility] [address] [address] [address] Rashida Carcamo BAND % 1 % Normal 0-5 [facility] Comment on above: Performed By: #### CBCBONY #### [facility] [address] [place] [address] Dr. Rashida Carcamo BASOM # 0.00 103/ul Normal 0.00-0.10 [facility] Comment on above: Performed By: #### CBCBONY #### [facility] [address] [place] [address] Dr. Rashida Carcamo BASOM % 0.0 % Critically low 0.2-2.0 [facility] Comment on above: Performed By: #### CBCBONY #### [facility] [address] [place] [address] Dr. Rashida Carcamo BLAST # Normal [facility] Comment on above: Performed By: #### CBCBONY #### [facility] [address] [place] [address] Dr. Rashida Carcamo BLAST % Normal [facility] Comment on above: Performed By: #### CBCBONY #### [facility] [address] [place] [address] Dr. Rashida Carcamo CORRECTED WBC Normal 4.0-11.0 [facility] Comment on above: Performed By: #### CBCBONY #### [facility] [address] [place] [address] Dr. Rashida Carcamo EOS # 0.00 103/ul Normal 0.00-0.70 [facility] Comment on above: Performed By: #### CBCBONY #### [facility] [address] [place] [address] Dr. Rashida Carcamo EOS% 0.0 % Critically low 0.9-7.0 [facility] Comment on above: Performed By: #### CBCBONY #### [facility] [address] [address] [address] Rashida Carcamo HCT 44.6 % Normal 36.0-48.0 [facility] Comment on above: Performed By: #### CBCBONY #### [facility] [address] [address] [address] Rashida Carcamo HGB 14.4 g/dl Normal 12.0-16.0 [facility] Comment on above: Performed By: #### CBCBONY #### [facility] [address] [address] [address] Rashida Carcamo LYMPHM # 1.23 103/ul Normal 1.20-3.80 [facility] Comment on above: Performed By: #### CBCBONY #### [facility] [address] [place] [address] Dr. Rashida Carcamo LYMPHM% 15.0 % Critically low 20.5-60.0 [facility] Comment on above: Performed By: #### JOHN #### [facility] [address] [place] [address] Dr. Rashida Carcamo MCH 29.0 pg Normal 26.7-34.0 [facility] Comment on above: Performed By: #### JOHN #### [facility] [address] [place] [address] Dr. Rashida Carcamo MCHC 32.3 g/dl Normal 29.9-35.2 [facility] Comment on above: Performed By: #### JOHN #### [facility] [address] [place] [address] Dr. Rashida Carcamo MCV 89.9 fL Normal 81.0-99.0 [facility] Comment on above: Performed By: #### CBCBONY #### [facility] [address] [address] [address] Rashida Carcamo METAMYELOCYTE # Normal [facility] Comment on above: Performed By: #### CBCBONY #### [facility] [address] [place] [address] Dr. Rashida Carcamo METAMYELOCYTE % Normal [facility] Comment on above: Performed By: #### CBCBONY #### [facility] [address] [address] [address] Rashida Carcamo MONOM# 0.25 103/ul Critically low 0.30-0.80 [facility] Comment on above: Performed By: #### CBCBONY #### [facility] [address] [place] [address] Dr. Rashida Carcamo MONOM% 3.0 % Normal 1.7-12.0 [facility] Comment on above: Performed By: #### CBCBONY #### [facility] [address] [place] [address] Dr. Rashida Carcamo MPV 10.9 fL Normal 9.5-13.5 [facility] Comment on above: Performed By: #### CBCBONY #### [facility] [address] [place] [address] Dr. Rashida Carcamo MYELOCYTE # Normal [facility] Comment on above: Performed By: #### JOHN #### [facility] [address] [place] [address] Dr. Rashida Carcamo MYELOCYTE % Normal [facility] Comment on above: Performed By: #### CBCBONY #### [facility] [address] [place] [address] Dr. Rashida Carcamo NRBC Normal [facility] Comment on above: Performed By: #### CBCBONY #### [facility] [address] [place] [address] Dr. Rashida Carcamo PLT 172 103/ul Normal 150-450 [facility] Comment on above: Performed By: #### CBCBONY #### [facility] [address] [place] [address] Dr. Rashida Carcamo RBC 4.96 106/ul Normal 4.20-5.40 [facility] Comment on above: Performed By: #### CBCBONY #### [facility] [address] [place] [address] Dr. Rashida Carcamo RDW 14.4 % Normal 11.0-15.0 [facility] Comment on above: Performed By: #### CBCBONY #### [facility] [address] [place] [address] Dr. Rashida Carcamo SEG # 6.64 103/ul Critically high 1.40-6.50 [facility] Comment on above: Performed By: #### JOHN #### [facility] [id number] Rashida Carcamo SEG % 81.0 % Critically high 43.0-75.0 [facility] Comment on above: Performed By: #### JOHN #### [facility] [id number] Rashida Carcamo WBC 8.2 103/ul Normal 4.0-11.0 [facility] Comment on above: Performed By: #### JOHN #### [facility] [id number] Rashida Carcamo [address] ABD/PELV W CONon [...] by: BRIEN JAIMES Date: 2021-10-18 06:24 Normal [facility] Covid-19 PCR (CVDTBH)on 09-26 SARS-CoV-2 (COVID-19) RNA BOBO+probe Ql (Unsp spec) Not detected Normal NOT DETECTED [facility] Comment on above: Result Comment: When diagnostic [...] for this test is supported by the [employer] and Human Service's declaration that [...] longer be used). Performed By: #### [facility] ####[facility] [id number] [address] Rashida Carcamo ER URINE PROFILEon 2 Bilirubin Ql (U) Negative Normal NEGATIVE [facility] Comment on above: Performed By: #### ERUR #### [facility] [address] [place] [address] Dr. Rashida Carcamo Clarity (U) SL CLOUDY Abnormal CLEAR [facility] Comment on above: Performed By: #### ERUR #### [facility] [address] [place] [address] Dr. Rashida Carcamo Color (U) LT. YELLOW Normal YELLOW [facility] Comment on above: Performed By: #### ERUR #### [facility] [address] [place] [address] Dr. Rashida PAZ A micrscopic examina tion will be performed if indicated. Normal [facility] Comment on above: Performed By: #### ERUR #### [facility] [address] [place] [address] Dr. Rashida Carcamo Glucose Ql (U) Negative Normal NEGATIVE [facility] Comment on above: Performed By: #### ERUR #### [facility] [address] [place] [address] Dr. Rashida Carcamo Hemoglobin Ql (U) Negative Normal NEGATIVE [facility] Comment on above: Performed By: #### ERUR #### [facility] [address] [place] [address] Dr. Rashida Carcamo Ketones Ql (U) 40 mg/dl Abnormal NEGATIVE [facility] Comment on above: Performed By: #### ERUR #### [facility] [address] [place] [address] Dr. Rashida Carcamo LEUKOCYTES Negative Normal NEGATIVE [facility] Comment on above: Performed By: #### ERUR #### [facility] [address] [place] [address] Dr. Rashida Carcamo Nitrite Ql (U) Negative Normal NEGATIVE [facility] Comment on above: Performed By: #### ERUR #### [facility] [address] [place] [address] Dr. Rashida Carcamo pH (U) 8.0 [pH] Normal 5-9 [facility] Comment on above: Performed By: #### ERUR #### [facility] [address] [place] [address] Dr. Rashida Carcamo SPEC GRAVITY 1.015 Normal 1.005-<=1.025 [facility] Comment on above: Performed By: #### ERUR #### [facility] [address] [place] [address] Dr. Rashida Carcamo UA PROTEIN Negative Normal NEGATIVE/ TRACE [facility] Comment on above: Performed By: #### ERUR #### [facility] [address] [place] [address] Dr. Rashida Carcamo UR MICRO IND NOT INDICATED Normal [facility] Comment on above: Performed By: #### ERUR #### [facility] [address] [place] [address] Dr. Rashida Carcamo Urobilinogen Qn (U) 0.2 {Lorna'U}/dL Normal 0.2 - 1.0 [facility] Comment on above: Performed By: #### ERUR #### [facility] [address] [place] [address] Dr. Rashida Carcamo LACTATE/LACTIC ACIDon 2021 Lactate [Moles/Vol] 1.3 mmol/L Normal 0.4-1.9 [facility] Comment on above: Performed By: #### LACT #### [facility] [address] [place] [address] Dr. Rashida Carcamo LIPASEon 10-18-2021 Lipase [Catalytic activity/Vol] 127.0 U/L Normal 73.0-393.0 [facility] Comment on above: Performed By: #### DAVID, CMADM, LIPA, CMP #### [facility] [address] [place] [address] Dr. Rashida Carcamo PROF 14(COMP METB)on 022 Albumin [Mass/Vol] 4.5 g/dL Normal 3.4-5.0 [facility] Comment on above: Performed By: #### DAVID, CMADM, LIPA, CMP #### [facility] [address] [place] [address] Dr. Rashida Carcamo Albumin/Globulin [Mass ratio] 1.2 {ratio} Normal [facility] Comment on above: Performed By: #### DAVID, CMADM, LIPA, CMP #### [facility] [address] [place] [address] Dr. Rashida Carcamo ALP [Catalytic activity/Vol] 67 U/L Normal 46-116 [facility] Comment on above: Performed By: #### DAVID, CMADM, LIPA, CMP #### [facility] [address] [place] [address] Dr. Rashida Carcamo ALT [Catalytic activity/Vol] 29 U/L Normal 14-59 [facility] Comment on above: Performed By: #### DAVID, CMADM, LIPA, CMP #### [facility] [address] [place] [address] Dr. Rashida Carcamo Anion gap [Moles/Vol] 14.1 mmol/L Normal [facility] Comment on above: Performed By: #### DAVID, CMADM, LIPA, CMP #### [facility] [address] [address] [address] Rashida Carcamo AST [Catalytic activity/Vol] 31 U/L Normal 15-37 [facility] Comment on above: Performed By: #### DAVID, CMADM, LIPA, CMP #### [facility] [address] [address] [address] Rahsida Carcamo Bilirubin [Mass/Vol] 0.8 mg/dL Normal 0.2-1.0 [facility] Comment on above: Performed By: #### DAVID, CMADM, LIPA, CMP #### [facility] [address] [place] [address] Dr. Rashida Carcamo Calcium [Mass/Vol] 10.2 mg/dL Critically high 8.5-10.1 [facility] Comment on above: Performed By: #### DAVID, CMADM, LIPA, CMP #### [facility] [address] [address] [address] Rashida Carcamo Chloride [Moles/Vol] 100 mmol/L Normal 98-107 [facility] Comment on above: Performed By: #### DAVID, CMADM, LIPA, CMP #### [facility] [address] [place] [address] Dr. Rashida Carcaom CO2 [Moles/Vol] 29.4 mmol/L Normal 21.0-32.0 [facility] Comment on above: Performed By: #### DAVID, CMADM, LIPA, CMP #### [facility] [address] [place] [address] Dr. Rashida Carcamo Creatinine [Mass/Vol] 0.70 mg/dL Normal 0.55-1.02 [facility] Comment on above: Performed By: #### DAVID, CMADM, LIPA, CMP #### [facility] [address] [place] [address] Dr. Rashida Carcamo EGFR-AF CITIZEN OF [place] >60 Normal >=60 [facility] Comment on above: Performed By: #### DAVID, CMADM, LIPA, CMP #### [facility] [address] [address] [address] Rashida Carcamo EGFR-NON AF CITIZEN OF [place] >60 Normal >=60 [facility] Comment on above: Performed By: #### DAVID, CMADM, LIPA, CMP #### [facility] [address] [address] [address] Rashida Carcamo Globulin (S) [Mass/Vol] 3.9 g/dL Normal [facility] Comment on above: Performed By: #### DAVID, CMADM, LIPA, CMP #### [facility] [address] [address] [address] Rashida Carcamo Glucose [Mass/Vol] 164 mg/dL Critically high 74-106 [facility] Comment on above: Performed By: #### DAVID, CMADM, LIPA, CMP #### [facility] [address] [address] [address] Rashida Carcamo Potassium [Moles/Vol] 3.5 mmol/L Normal 3.5-5.1 [facility] Comment on above: Performed By: #### DAVID, CMADM, LIPA, CMP #### [facility] [address] [address] [address] Rashida Carcamo Protein [Mass/Vol] 8.4 g/dL Critically high 6.4-8.2 [facility] Comment on above: Performed By: #### DAVID, CMADM, LIPA, CMP #### [facility] [address] [address] [address] Rashida Carcamo Sodium [Moles/Vol] 140 mmol/L Normal 136-145 [facility] Comment on above: Performed By: #### DAVID, CMADM, LIPA, CMP #### [facility] [address] [address] [address] Rashida Carcamo Urea nitrogen [Mass/Vol] 24.0 mg/dL Critically high 7.0-18.0 [facility] Comment on above: Performed By: #### DAVID, CMADM, LIPA, CMP #### [facility] [address] [address] [address] Rashida Carcamo Urea nitrogen/Creatin ine [Mass ratio] 34.3 mg/mg Normal [facility] Comment on above: Performed By: #### DAVID, CMADM, LIPA, CMP #### [facility] [address] [address] [address] Rashida Carcamo XR FOOT KARLOS MIN [...] ROJAS Date: 2021-08-06 12:00 Normal [facility] CASE MANAGEMon 01-13-2017 CASE MANAGEM HNO ID: [id number] thor: RAJ Marte Rnervice: Care ManagementAuthor Type: Registered NurseType: Care Mgt Progress NoteFiled: 01/13/2017 11:46 AMNote Text:MULTIDISCIPLINARY ROUNDSSERVICE DATE: 01/13/2017 ADMISSION DATE: 01/08/2017SERVICE TIME: 11:43 AM ANTICIPATED D/C DATE: 01/13/2017Problem List:ACTIVE PROBLEM LISTIron Deficiency AnemiaPud (Peptic Ulcer Disease)Carotid StenosisVertigoTachycardiaBpv (Benign Positional Vertigo)Hld (Hyperlipidaemia)Rectal BleedingExertional DyspneaEmphysema of Lung (Hcc)Alcohol AbuseStatus Post SurgerySbo (Small Bowel Obstruction) ([facility])Attendees Present at Rounds:Team Leader/Research Psychologist: Alison ALFONSO ACMNurse Carton Filler: Marlena ANTHONYtaff Nurse: Laura Discussed on Rounds:Discharge NeedsAnticipated Discharge [...] January 13, 2017 : 11:43 AM CSN: [id number] [facility] HNO ID: [id number] thor: Natasha (Business Support Professional) MONIQUE YunService: General SurgeryAuthor Type: Nurse PractitionerType: Discharge SummariesFiled: 01/13/2017 1:38 PMNote Text:DISCHARGE SUMMARYPATIENT NAME: Sofie Adrian ADMISSION DATE: 01/08/2017MRN: [id number] DISCHARGE DATE: 01/13/2017Attending Physician: Adis Richardson for Hospitalization: abdominal painActive Problems: SBO (small bowel obstruction) (HCC)Resolved Problems: * No resolved hospital problems. *Operations During Hospitalization: Diagnostic laparoscopy and lysis ofadhesionsProcedures During Hospitalization: intubation for surgeryHospital Course:Admitted on 01/08/17 with abdominal pain, nausea and vomiting from [facility]. Evaluated by surgery and CT result was [...] (141 lb 6.4 oz) SpO2 95% BMI26.72 kg/a5Mshcjuoezjd Provided to Patient:Symptoms or health problems to watch for after I leave the hospital:-Increasing abdominal pain or cyckwlws-Fhwkglyi-Zedj or no urine-Fever greater than 101.5?F (38.6?C) [...] hold suction.-Pin the plastic tab on the ASRAH drain to a hand towel placed over [...] that worsen your function should be avoided.8. [place]: If you have melida, these should be [...] yoursurgeon and set up an appointment at [phone] [facility] hospitalrob Medications: Discharge Medication List as of 01/13/2017 [...] procedure)Comments:Reason for Stopping:Future AppointmentsDate Time Provider Department Blkrps0001/26/2017 2:00 PM [id number], KATHRYN (CUSTOMER EXPERIENCE PROFESSIONAL) LAK630 [facility] - Office [address] [place] [address] [address] [address] *The lobby clinic [facility] the [facility] and the flower shop*TIME OF CARE: Discharge Management: I personally spent greater than 30minutes involved in the discharge management of this patient.SIGNATURE: Natasha YUN CNP PAGER: [phone]: January 13, 2017TIME: 9:50 AM [facility] NURSING PROGon 01-13-2017 NURSING PROG HNO ID: [id number] thor: Saida (Rn) RAJ Rodriguezervice: NursingAuthor Type: Registered NurseType: Nursing Progress NoteFiled: 01/13/2017 1:14 PMNote Text: Nursing Progress NotePatient Name: Sofie Donald JakeMRN: [id number] [id number] _Daily Note:IV Heplock D/C'd. Discharge instructions reviewed with patient, statesunderstanding. RX for Colace and MOM. No further questions at this time.1313: D/C off unit via wheelchair, picking up patient.This note was completed by: Saida Rodriguez RN [facility] NURSING PROG HNO ID: [id number] thor: Carmen Kumari) Elva Quesadaice: (none)Author Type: Registered NurseType: Nursing Progress NoteFiled: 01/13/2017 2:33 AMNote Text: Nursing Progress NotePatient Name: Sofie AdrianMRN: [id number] Location: [address] [address]/[id number] _ Sarah dsg changed earlier approx 2200 as saturated with serosang drainage.Gown changed. Pain controlled with toradol and tylenol and 5mg oxycodonegiven earlier. Pt declined MOM and colace as states had at least eightBMs loose today . Reports is chronic diarrhea after colon resection inpast.This note was completed by: Carmen Quesada RN [facility] PROGRESSon 01-13-2017 PROGRESS HNO ID: [id number] thor: Carlos (Res) PhilipService: General SurgeryAuthor Type: [...] wound. Patient tolerated the procedure well.Carlos Garcia MDMadison Hospital SurgeryFor any questions please contactSurgery Green Team pager [phone] weekdays.Or [phone] weeknights (6pm - 6am) and weekends.Date: 01/13/2017Time: 10:17 AM [facility] PROGRESS HNO ID: [id number] thor: Adis Bryante: General SurgeryAuthor Type: PhysicianType: Progress NotesFiled: 01/13/2017 1:09 PMNote Text:General Surgery Progress NoteService Date: January 13, 2017Patient Name: Sofie Donald LaurenN: [id number] and Plan: 61 year old female with SBO and strangulated internalhernia??POD 4?s/p laparoscopic lysis of adhesions, doing well. Leukopenia?- Pain control: tylenol, PO oxy- FEN/GI: GIS diet, mIVFs- No Trujillo- VTE Prophylaxis: SQH, SCDs- Routine surgical care: IS, OOB- Dispo: Possible DC todayPlan to be discussed with Surgery Staff.Raghu Westbrook MDFor any questions please contactSurgery Green Team pager [phone] weekdays.Or [phone] weeknights (6pm - 6am) and weekends.Date: 01/13/2017Time: 7:55 AMSubjective:Interval Events: none. Pain: controlled. + bowel function. No othercomplaints.Physical Exam:BP 126/71 Pulse 65 Temp 36.6 ?C (97.9 ?F) (Oral) Resp 16 Ht 154.9cm (5' 1 ) Wt 64.1 kg (141 lb 6.4 oz) SpO2 95% BMI 26.72 kg/o2MMYFVLV/NEURO: Awake, Alert, no distressHEENT: Normocephalic, Atraumatic, sclera [...] 01/13/17 0659 01/13/17 07 - 01/14/17 0659Shift 3986-8022 8051-5932 1798-3966 24 Hour Total 6689-5526 0933-72462227-4608 24 Hour TotalINTAKE PO 120 120 240 PO 120 120 240 IV 1148 1148 D5 0.45%NS w/20KCL 1148 1148 Shift Total 1268 120 1388OUTPUT Urine 1200 117 896 4631 100 100 Void (ml) 1200 391 076 1247 100 100 Tubes 190 140 210 540 30 30 Drain/Tube Output (Drain/Tube [facility] Right Abdomen 01/09/1719Fr) 190 140 210 540 30 30 # of BMs Number of BMs 1 x 2 x 1 x 4 x Shift Total 1390 189 851 6415 130 130Weight (kg) 64.1 64.1 64.1 64.1 [...] Evan Brown MDSeptember 2016 1:09 PM Normal [facility] Basic Metabolic Panlon 01-12 Anion gap 10 mmol/L Normal 01-12 [facility] Comment on above: Performed By: #### CBC, BMP, MG1 ####[address] [facility] [place], [place] [phone] Calcium 8.3 mg/dL Low 8.5-10.5 [facility] Comment on above: Result Comment: Reviewed Performed By: #### C BC, BMP, MG1 ####[address] [address] Chloride 105 mmol/L Normal 98-110 [facility] Comment on above: Performed By: #### CBC, BMP, MG1 ####[place] [address] CO2 23 mmol/L Normal 23-32 [facility] Comment on above: Performed By: #### CBC, BMP, MG1 ####[place] [phone] Creatinine 0.54 mg/dL Low 0.70-1.40 [facility] Comment on above: Performed By: #### CBC, BMP, MG1 ####[place] [address] eGFR (non-black) mL/min/{1.73_m2} Normal >60 [facility] Comment on above: Performed By: #### CBC, BMP, MG1 ####[place] [address] Glucose mass conc 111 mg/dL High 65-100 [facility] Comment on above: Performed By: #### CBC, BMP, MG1 ####[place] [address] Potassium molar conc 4.1 mmol/L Normal 3.5-5.0 [facility] Comment on above: Result Comment: Reviewed Performed By: #### C BC, BMP, MG1 ####[address] [address] Sodium 138 mmol/L Normal 132-148 [facility] Comment on above: Performed By: #### CBC, BMP, MG1 ####[place] [address] Urea nitrogen 4 mg/dL Low 8-25 [facility] Comment on above: Performed By: #### CBC, BMP, MG1 ####[address], [place] [phone] CASE MGT INIT Eren 2016 CASE MGT INIT LINDA HNO ID: [id number]: Negar (Sales Supervisor-Lois) SOMMER Johnervice: Social WorkAuthor Type: Social WorkerType: Care Mgt Initial AssessmentFiled: 01/12/2017 10:39 AMNote Text:CARE MANAGEMENT: ASSESSMENT AND DISCHARGE PLANSERVICE DATE: 01/12/2017SERVICE TIME: 939PRIMARY CARE PHYSICIAN:Tommy Anaya, DOPhone: ANOCOYPJV STATUS: InpatientPOTENTIAL DISCHARGE PLANSHomePatient/Representati ve Stated Goals: I dont think I will be needinganything when I go home per ptNeeds Prior to Discharge: Ready for DischargeHealth Insurance: Supermed PlusLiving Arrangement: HomeLives With: Spouse. Dtr lives nearby and assists with cleaningFinancial Resources: Pt and own a body shopPrimary Contact:Extended Emergency Contact InformationPrimary Emergency Contact: Ying Adrian Vqanohmg: ChildSupportive: YesOther Important Patient Contacts: Pt states [...] days? NoHas the Patient Been in a Jail Facility in the Past 30 days? NoFREEDOM OF CHOICE EXPLAINED:Yes with ptHANDOFF COMMUNICATION:Primary Care Physician: Tommy Anaya DO .Summary will be routed via [place] at d/cPt is from [facility] (about [address] [facility]) She is hopingto return home with no needs, but family can assist should needs arise.Dtr or will transport at d/c.SIGNATURE: BISMARK Jacobs PATIENT NAME: Sofie AdrianDATE: January 12, 2017 : 10:32 AM PAGER/CONTACT #: [phone] Normal [facility] CBCon 01-12-2017 Erythrocyte distribution width Auto Ratio (RBC) 12.7 % Normal 11.5-15.0 [facility] Comment on above: Performed By: #### CBC, BMP, MG1 ####[address] [place] [place], [place] [phone] Erythrocytes (RBC) 2.78 10*6/uL Low 3.90-5.20 [facility] Comment on above: Performed By: #### CBC, BMP, MG1 ####[address] [place], [place] [phone] Hematocrit (HCT) 27.9 % Low 36.0-46.0 [facility] Comment on above: Performed By: #### CBC, BMP, MG1 ####[place] [phone] Hemoglobin mass conc (Bld) 8.8 g/dL Low 11.5-15.5 [facility] Comment on above: Performed By: #### CBC, BMP, MG1 ####[address] MCH 31.7 pG Normal 26.0-34.0 [facility] Comment on above: Performed By: #### CBC, BMP, MG1 ####[place] [address] MCHC mass conc (RBC) 31.5 g/dL Normal 30.5-36.0 [facility] Comment on above: Performed By: #### CBC, BMP, MG1 ####[place] [address] MCV 100.4 fL High 80.0-100.0 [facility] Comment on above: Performed By: #### CBC, BMP, MG1 ####[address] Platelet mean volume (PMV) 11.1 fL Normal 9.0-12.7 [facility] Comment on above: Performed By: #### CBC, BMP, MG1 ####[address] Platelets 135 10*3/uL Low 150-400 [facility] Comment on above: Performed By: #### CBC, BMP, MG1 ####[place] [phone] WBC (Leukocytes) 3.27 10*3/uL Low 3.70-11.00 [facility] Comment on above: Performed By: #### CBC, BMP, MG1 ####[place] [phone] Magnesiumon 01-12-2017 Magnesium 1.8 mg/dL Normal 1.7-2.6 [facility] Comment on above: Performed By: #### CBC, BMP, MG1 ####[address] [place], [place] [phone] PROGRESSon 01-12-2017 PROGRESS HNO ID: [id number] thor: TREY Villavicencio Reservice: General SurgeryAuthor Type: ResidentType: Progress NotesFiled: 01/12/2017 7:27 AMNote Text:General Surgery Progress NoteService Date: January 12, 2017Patient Name: Sofie AdrianMRN: [id number] and Plan: Sofie Adrian is a 61 year old female with SBO andstrangulated internal hernia??POD 3?s/p laparoscopic lysis of adhesions,doing well. Leukopenia- Pain control: tylenol, DC morphine INSIDE METER TESTER, transition to PO oxy- FEN/GI: GIS diet, mIVFs- No Trujillo- VTE Prophylaxis: SQH, SCDs- Routine surgical care: IS, OOB- Dispo: RNFPlan to be discussed with Surgery Staff.Raghu Westbrook MDFor any questions please contactSurgery Green Team pager [phone] weekdays.Or [phone] weeknights (6pm - 6am) and weekends.Date: 01/12/2017Time: 5:51 AMSubjective:Interval Events: Resting well. No acute issues overnight. BM-, Flatus+.Pain -. N-. Denies SoB/CPPhysical Exam:BP 110/67 Pulse 76 Temp 36.5 ?C (97.7 ?F) (Oral) Resp 16 Ht 154.9cm (5' 1 ) Wt 64.1 kg (141 lb 6.4 oz) SpO2 95% BMI 26.72 kg/w4QWMYEFQ/NEURO: Awake, Alert, no distressHEENT: Normocephalic, Atraumatic, sclera anictericCHEST: Unlabored breathing on RA, hemodynamically stableABDOMEN: Soft, Non-tender, Non-Distended, Incisions clean/dry/intact, JPSSEXTREMITIES: warm, well perfused, no jaundice, no cyanosis, no edemaLabs:CBC, Coags, BMP, Mg, PhosRecent Labs 4501/09/1709WBC 2.75* 5.33 -- 13.84*HB 8.2* 10.3* -- [...] AND LipaseLactate (mmol/L)Date 08/08/2015 1.0Intake and Output:Date 01/11/17 0700 - 01/12/17 0659 01/12/17 0700 - 01/13/17 0659Shift 5289-8028 7369-0220 6202-9156 24 Hour Total 6803-5479 3102-33389462-2002 24 Hour TotalINTAKE PO 120 120 240 PO 120 120 240 IV 323 533 8907 D5 0.45%NS w/20KCL 335 607 9871 Shift Total 1025 739 1764OUTPUT Urine 475 270 541 4089 Void (ml) 275 644 395 7824 Tube Output ([REMOVED] Drain Trujillo 01/09/17 16 Citizen Of [place] ) 200 200 Tubes 140 130 100 370 Drain/Tube Output (Drain/Tube Hasmukh Atkins Right Abdomen 01/09/1719Fr) 140 130 100 370 Shift Total 615 730 500 1845Weight (kg) 64.1 64.1 64.1 64.1 64.1 64.1 64.1 64.1Current Medications:Current hospital medications:pantoprazole DR 20 mg tab(s) (PROTONIX) 20 mg ORAL DAILY (6 AM)dextrose 5% in NaCl 0.45% with 20 mEq/L KCl iv infusion 100 mL/hrINTRAVENOUS CONTINUOUSmorphine INSIDE METER TESTER 1 mg/mL in NaCl 0.9% 100 mL INTRAVENOUS CONTINUOUSmorphine 1 mg/mL INSIDE METER TESTER CLINICIAN DOSE 1 mg 1 mg INTRAVENOUS [...] PRODUCT Indications: OSTEO-BIFLEX Takes 2 PO QD [facility] PT EDon 01-12-2017 PT ED HNO ID: [id number] thor: Nikki Tinajero (Pharmacist)Service: PharmacyAuthor Type: PharmacistType: Patient EducationFiled: 01/12/2017 11:10 AMNote Text:Clinical Pharmacy ServicesHigh Risk: Daily Medication AssessmentPatient Name: Sofie AdrianMRN: [id number] Date: 01/08/2017Service Date and Time: 01/12/2017 10:52 AMNew MedicationsThe following medications have been started since last pharmacy review:Protonix, ToradolMedication education has been completed: Yes or Comments: patient alsoasked about dosing her metoprololSignature: Julius Feliz (Pbx Wire Chief)Langdon: [phone]: [phone] Addendum:The above case has been reviewed and discussed with the diploma pharmacy technician.I agree with the assessment/plan described by the student. Changes andadditions to the details in the above note are indicated by italics and .Nikki Tinajero, Pharmacist01/12/2017 11:10 [id number] [facility] ANES Viktor 01-11-2017 ANES POST HNO ID: [id number] thor: Payam IditoiuService: AnesthesiologyAuthor Type: AnesthesiologistType: Anesthesia PostOpFiled: 01/11/2017 12:37 PMNote Text:POST ANESTHESIA EVALUATION NOTESERVICE DATE: 01/11/2017SERVICE TIME: 12:36 PMDOB: 1955Vitals: 016 410 01/11/1711BP: 93/60 101/59 104/61 114/64Pulse: 72 87 82 [...] 11, 2017 : 12:36 PM PAGER/CONTACT #: [phone] Normal [facility] Basic Metabolic Panlon 01-11 Anion gap 9 mmol/L Normal -18 [facility] Comment on above: Performed By: #### CBC, BMP, MG1 ####[place] [phone] Calcium 7.4 mg/dL Low 8.5-10.5 [facility] Comment on above: Performed By: #### CBC, BMP, MG1 ####[place] [phone] Chloride 104 mmol/L Normal 98-110 [facility] Comment on above: Performed By: #### CBC, BMP, MG1 ####[place] [phone] CO2 23 mmol/L Normal 23-32 [facility] Comment on above: Performed By: #### CBC, BMP, MG1 ####[place] [phone] Creatinine 0.64 mg/dL Low 0.70-1.40 [facility] Comment on above: Performed By: #### CBC, BMP, MG1 ####[place] [phone] eGFR (non-black) mL/min/{1.73_m2} Normal >60 [facility] Comment on above: Performed By: #### CBC, BMP, MG1 ####[place] [address] Glucose mass conc 188 mg/dL High 65-100 [facility] Comment on above: Performed By: #### ROMIE, BMP, MG1 ####[place] [address] Potassium molar conc 3.4 mmol/L Low 3.5-5.0 [facility] Comment on above: Performed By: #### ROMIE, BMP, MG1 ####[place] [address] Sodium 136 mmol/L Normal 132-148 [facility] Comment on above: Performed By: #### ROMIE, BMP, MG1 ####[address] Urea nitrogen 10 mg/dL Normal 8-25 [facility] Comment on above: Performed By: #### CBC, BMP, MG1 ####[address] CBCon 01-11-2017 Erythrocyte distribution width Auto Ratio (RBC) 12.9 % Normal 11.5-15.0 [facility] Comment on above: Performed By: #### CBC, BMP, MG1 ####[place] [phone] Erythrocytes (RBC) 2.55 10*6/uL Low 3.90-5.20 [facility] Comment on above: Performed By: #### CBC, BMP, MG1 ####[place] [address] Hematocrit (HCT) 25.8 % Low 36.0-46.0 [facility] Comment on above: Performed By: #### CBC, BMP, MG1 ####[place] [address] Hemoglobin mass conc (Bld) 8.2 g/dL Low 11.5-15.5 [facility] Comment on above: Performed By: #### CBC, BMP, MG1 ####[place] [address] MCH 32.2 pG Normal 26.0-34.0 [facility] Comment on above: Performed By: #### CBC, BMP, MG1 ####[place] [address] MCHC mass conc (RBC) 31.8 g/dL Normal 30.5-36.0 [facility] Comment on above: Performed By: #### CBC BMP, MG1 ####[place] [address] MCV 101.2 fL High 80.0-100.0 [facility] Comment on above: Performed By: #### CBC, BMP, MG1 ####[place] [address] Platelet mean volume (PMV) 10.9 fL Normal 9.0-12.7 [facility] Comment on above: Performed By: #### CBC, BMP, MG1 ####[place] [address] Platelets 112 10*3/uL Low 150-400 [facility] Comment on above: Performed By: #### CBC, BMP, MG1 ####[place] [address] WBC (Leukocytes) 2.75 10*3/uL Low 3.70-11.00 [facility] Comment on above: Performed By: #### RITA GRUBBS, MG1 ####[place] [id number] [place], [place] [phone] Magnesiumon 01-11-2017 Magnesium 1.7 mg/dL Normal 1.7-2.6 [facility] Comment on above: Performed By: #### ROMIE, RITA, MG1 ####[place] [address] [phone] NURSING PROGon 01-11-2017 NURSING PROG HNO ID: [id number] thor: Josie RennerRn) RAJ Palafoxervice: NursingAuthor Type: Registered NurseType: Nursing Progress NoteFiled: 01/12/2017 12:04 AMNote Text: Nursing Progress NotePatient Name: Sofie AdrianN: [id number] [id number] _ Pt awake and alert. Pt c/o 2/10 abdominal pain. Pt minimally using PCApump. Explained POC and probable advancement in diet and possiblediscontinue of INSIDE METER TESTER pump. Pt understands. Will continue to monitor.This note was completed by: Josie Palafox, RN,BSN Normal [facility] NURSING PROG HNO ID: [id number] thor: Judy RennerRn) Elva Garciaice: (none)Author Type: Registered NurseType: Nursing Progress NoteFiled: 01/11/2017 6:28 PMNote Text: Nursing Progress NotePatient Name: Sofie Donald JakeMRN: [id number] Location: [place] [address]/[id number] _Daily Note:IV/INSIDE METER TESTER maintained.Taking diet fair.No n/v.Voiding clearurine.Up in chair for about one hour,ambulates to bathroom with walker andone assist.Will reassess.This note was completed by: Judy Garcia RN [facility] NURSING PROG HNO ID: [id number] thor: Judy (Rn) Jose, RNService: (none)Author Type: Registered NurseType: Nursing Progress NoteFiled: 01/11/2017 9:48 AMNote Text: Nursing Progress NotePatient Name: Sofie Donald JakeMRN: [id number] Location: [place] [address]/[id number] _Daily Note:IV/INSIDE METER TESTER morphine maintained.Diet advanced to clear liquid thento GI soft-waiting for tray at this time.Taking clear liquids well.Non/v.Trujillo removed at 8:10 A.M.,has not voided as of yet.Lap sites cleanand well approximated.No drainage noted.Dressing around Hasmukh Atkins inplace and draining reddish drainage.Abd. soft,distended,and tender.Bowelsounds hypoactive.Denies pain.Will reassess.This note was completed by: Judy Garcia RN [facility] PROGRESSon 01-11-2017 PROGRESS HNO ID: [id number] thor: Reji Wheatleye: General SurgeryAuthor Type: PhysicianType: Progress NotesFiled: 01/11/2017 3:04 PMNote Text: SURGERY INPATIENT PROGRESS NOTEName: Sofie Donald JakeMRN: [id number] and Plan:61 year old female with SBO and strangulated internal hernia POD 2 s/plaparoscopic lysis of adhesions, doing well?- Pain control: tylenol, morphine INSIDE METER TESTER- FEN/GI: GIS diet, NGT removed yesterday- ID: On Abx Zosyn- DC Cassandra today- VTE Prophylaxis: SQH, SCDs- Routine surgical care: IS, OOB- Dispo: RNFS: Resting well. No acute issues overnight. BM-, Flatus+. Pain -. N-.Denies SoB/CP.O:Current hospital medications:phenol 1 Blair (CHLORASEPTIC) 1 Blair MUCOUS MEMBRANE (TOPICAL MOUTH ANDTHROAT) q 2 H PRNdextrose 5% in NaCl 0.45% with 20 mEq/L KCl iv infusion 100 mL/hrINTRAVENOUS CONTINUOUSmorphine INSIDE METER TESTER 1 mg/mL in NaCl 0.9% 100 mL INTRAVENOUS CONTINUOUSmorphine 1 mg/mL INSIDE METER TESTER CLINICIAN DOSE 1 mg 1 mg INTRAVENOUS [...] lb 6.4 oz) SpO2 96% BMI 26.72 kg/c5Wdamcm/Output Summary (Last 24 hours) at 01/11/17 0755Last [...] Westbrook MDGeneral Surgery PGY-17:55 AM01/11/2017Green Team Pager: [phone]*Please page Jr. On-Call [phone]) 6pm - 6am and on weekends.Att: NG out. Fullness after eating today - I told her to take it slowly. Abdomen still benign.Some Pancytopenia on labs - could be lab error. Will recheck in AM. Ptclinically stable.Reji Sampson, MDSeptember 2016 3:04 PM Normal [facility] Basic Metabolic Panlon 01-10 Anion gap 12 mmol/L Normal 9-18 [facility] Comment on above: Performed By: #### CBC, BMP, MG1 ####[place] [phone] Calcium 7.8 mg/dL Low 8.5-10.5 [facility] Comment on above: Performed By: #### CBC, BMP, MG1 ####[place] [phone] Chloride 104 mmol/L Normal 98-110 [facility] Comment on above: Performed By: #### CBC, BMP, MG1 ####[place] [phone] CO2 23 mmol/L Normal 23-32 [facility] Comment on above: Performed By: #### CBC, BMP, MG1 ####[place] [phone] Creatinine 0.66 mg/dL Low 0.70-1.40 [facility] Comment on above: Performed By: #### CBC, BMP, MG1 ####[place] [phone] eGFR (non-black) mL/min/{1.73_m2} Normal >60 [facility] Comment on above: Performed By: #### CBC, BMP, MG1 ####[place] [phone] Glucose mass conc 100 mg/dL Normal 65-100 [facility] Comment on above: Performed By: #### RITA GRUBBS, MG1 ####[place] [phone] Potassium molar conc 3.6 mmol/L Normal 3.5-5.0 [facility] Comment on above: Performed By: #### CBCRITA, MG1 ####[place] [phone] Sodium 139 mmol/L Normal 132-148 [facility] Comment on above: Performed By: #### RITA GRUBBS, MG1 ####[place] [phone] Urea nitrogen 12 mg/dL Normal 8-25 [facility] Comment on above: Performed By: #### RITA GRUBBS, MG1 ####[place] [phone] CBCon 01-10-2017 Erythrocyte distribution width Auto Ratio (RBC) 12.5 % Normal 11.5-15.0 [facility] Comment on above: Performed By: #### RITA GRUBBS, MG1 ####[place] [phone] Erythrocytes (RBC) 3.23 10*6/uL Low 3.90-5.20 [facility] Comment on above: Performed By: #### CBC, BMP, MG1 ####[place] [phone] Hematocrit (HCT) 32.3 % Low 36.0-46.0 [facility] Comment on above: Performed By: #### CBC, BMP, MG1 ####[place] [phone] Hemoglobin mass conc (Bld) 10.3 g/dL Low 11.5-15.5 [facility] Comment on above: Performed By: #### CBC, BMP, MG1 ####[place] [phone] MCH 31.9 pG Normal 26.0-34.0 [facility] Comment on above: Performed By: #### CBC, BMP, MG1 ####[place] [phone] MCHC mass conc (RBC) 31.9 g/dL Normal 30.5-36.0 [facility] Comment on above: Performed By: #### CBC, BMP, MG1 ####[address] MCV 100.0 fL Normal 80.0-100.0 [facility] Comment on above: Performed By: #### CBC, BMP, MG1 ####[address] Platelet mean volume (PMV) 11.3 fL Normal 9.0-12.7 [facility] Comment on above: Performed By: #### CBC, BMP, MG1 ####[place] [phone] Platelets 113 10*3/uL Low 150-400 [facility] Comment on above: Performed By: #### CBC, BMP, MG1 ####[place] [phone] WBC (Leukocytes) 5.33 10*3/uL Normal 3.70-11.00 [facility] Comment on above: Performed By: #### CBC, BMP, MG1 ####[place] [phone] Magnesiumon 01-10-2017 Magnesium 1.9 mg/dL Normal 1.7-2.6 [facility] Comment on above: Performed By: #### CBC, BMP, MG1 ####[place] [phone] NURSING PROGon 01-10-2017 NURSING PROG HNO ID: [id number] thor: Julia Kumari) [place] Serra: (none)Author Type: Registered NurseType: Nursing Progress NoteFiled: 01/10/2017 5:25 PMNote Text: Nursing Progress NotePatient Name: Sofie AdrianMRN: [id number] Location: [place] [address]/[id number] _Daily Note:1700: Removed NG tube per physician order. Patient tolerated procedurewell. Ice water was provided to patient post-removal and she toleratedwell.This note was completed by: Julia Serra RN [facility] NURSING PROG HNO ID: [id number] thor: Elva Chang Rnice: (none)Author Type: Registered NurseType: Nursing Progress NoteFiled: 01/10/2017 1:28 PMNote Text: Nursing Progress NotePatient Name: Sofie AdrianMRN: [id number] Location: [place] [address]/[id number] _Daily Note: No acute issues this shift. Pt. up in chair. Ambulated inhall with walker and 1 staff assist. INSIDE METER TESTER morphine maintaining paincontrol. NGT to LCWS draining scant amount of bilious fluid.BS-hypoactive. IS use encouraged. Call light within reach. NPO exeptsmeds. Will continue to monitor.This note was completed by: Mariluz Schafer RN [facility] PROGRESSon 01-10-2017 PROGRESS HNO ID: [id number] thor: Reji Hollis: General SurgeryAuthor Type: PhysicianType: Progress NotesFiled: 01/10/2017 5:59 PMNote Text: SURGERY INPATIENT PROGRESS NOTEName: Sofie Donald FinlaysonMRN: [id number] and Plan:61 year old female with SBO and strangulated internal hernia POD 1 s/plaparoscopic lysis of adhesions, doing well- Pain control: tylenol, morphine INSIDE METER TESTER- FEN/GI: NPO, NGT- ID: On Abx Zosyn- DC Trujillo today- VTE Prophylaxis: SQH, SCDs- Routine surgical care: IS, OOB- Dispo: RNFS: Resting well. No acute issues overnight. BM-, Flatus-. Pain -. N-.Denies SoB/CP.O:Current hospital medications:phenol 1 Blair (CHLORASEPTIC) 1 Blair MUCOUS MEMBRANE (TOPICAL MOUTH ANDTHROAT) q 2 H PRNmorphine INSIDE METER TESTER 1 mg/mL in NaCl 0.9% 100 mL INTRAVENOUS CONTINUOUSmorphine 1 mg/mL INSIDE METER TESTER CLINICIAN DOSE 1 mg 1 mg INTRAVENOUS [...] lb 6.4 oz) SpO2 98% BMI 26.72 kg/d9Xltzml/Output Summary (Last 24 hours) at 01/10/17 1006Last data filed at 01/10/17 0900 Gross per 24 hourIntake 3690 mlOutput 1550 mlNet 2140 mlGeneral Appearance: Well appearing, alert, in no acute distress,well-hydrated, well nourished.Abdomen: soft, appropriately tenderIncision C/D/IDrain: serosanguinousCBC, BMP, MG, PHOSRecent Labs 01/09/1706WBC 5.33 13.84* 10.34 < > 7.41HB 10.3* [...] values in this interval not displayed.CoagsRecent Labs 01/09/17063 516366NCUN 28.1 26.8 27.7INR 1.1 1.1 1.1*A review of daily goals, interventions, and plan of care with themultidisciplinary team and patient has been conducted. The patient?sconcerns have been addressed and he/she agrees to proceed with today?splan of care.Raghu Westbrook MDGeneral Surgery PGY-110:06 AM01/10/2017Green Team Pager: [phone]*Please page Jr. On-Call ([phone]) 6pm - 6am and on weekends.Att: As above. Pt seen at 1000 today. Minimal pain, and abdomen benign. NG output decreasing; will consider clamp trial later vs DC of NGtomorrow AM.Reji Sampson, [facility] 5:59 PM Normal [facility] Toxicology Screen,Uron 01-10 Amphetamines, Urine Negative Normal Negative [facility] Comment on above: Result Comment: Cutoff threshold at 1000 ng/mL.Detection of any drug(s) is presumptive only. For confirmation by alternative methods contact the Laboratory within 5 days. For medical purposes only. Documented cross-reactivities (false positives) on file in Laboratory. Performed By: #### U TOX2 ####[address] [phone] Barbiturates, Urine Negative Normal Negative [facility] Comment on above: Result Comment: Cutoff threshold at 200 ng/mL.Detection of any drug(s) is presumptive only. For confirmation by alternative methods contact the Laboratory within 5 days. For medical purposes only. Documented cross-reactivities (false positives) on file in Laboratory. Performed By: #### U TOX2 ####[facility] [place] [address] [phone] Benzodiazepines, Ur Positive Critically abnormal Negative [facility] Comment on above: Result Comment: Cutoff threshold at 200 ng/mL.Detection of any drug(s) is presumptive only. For confirmation by alternative methods contact the Laboratory within 5 days. For medical purposes only. Documented cross-reactivities (false positives) on file in Laboratory. Performed By: #### U TOX2 ####[place] [address] Cannabinoids, Urine Negative Normal Negative [facility] Comment on above: Result Comment: Cutoff threshold at 50 n g/mL.Detection of any drug(s) is presumptive only. For confirmation by alternative methods contact the Laboratory within 5 days. For medical purposes only. Documented cross-reactivities (false positives) on file in Laboratory. Performed By: #### U TOX2 ####[place] [address] Cocaine, Urine Negative Normal Negative [facility] Comment on above: Result Comment: Cutoff threshold at 300 ng/mL.Detection of any drug(s) is presumptive only. For confirmation by alternative methods contact the Laboratory within 5 days. For medical purposes only. Documented cross-reactivities (false positives) on file in Laboratory. Performed By: #### U TOX2 ####[place] [address] Ethanol, Urine <11 Normal <11 [facility] Comment on above: Performed By: #### UTOX2 ####[facility] [address] [place] [address] Opiates, Urine Positive Critically abnormal Negative [facility] Comment on above: Result Comment: Cutoff threshold at 300 ng/mL.Detection of any drug(s) is presumptive only. For confirmation by alternative methods contact the Laboratory within 5 days. For medical purposes only. Documented cross-reactivities (false positives) on file in Laboratory. Performed By: #### U TOX2 ####[place] [address] Oxycodone, Urine Negative Normal Negative [facility] Comment on above: Result Comment: Cutoff threshold at 100 ng/mL.Detection of any drug(s) is presumptive only. For confirmation by alternative methods contact the Laboratory within 5 days. For medical purposes only. Documented cross-reactivities (false positives) on file in Laboratory. Performed By: #### U TOX2 ####[address] Phencyclidine, Urine Negative Normal Negative [facility] Comment on above: Result Comment: Cutoff threshold at 25 n g/mL.Detection of any drug(s) is presumptive only. For confirmation by alternative methods contact the Laboratory within 5 days. For medical purposes only. Documented cross-reactivities (false positives) on file in Laboratory. Performed By: #### U TOX2 ####[place] [id number] [place], [place] [phone] ANES PREOPon 01-09-2017 ANES PREOP HNO ID: [id number] thor: Joe RomeroeService: AnesthesiologyAuthor Type: AnesthesiologistType: Anesthesia PreOpFiled: 01/09/2017 11:54 AMNote Text:REGIONAL ANESTHESIOLOGY DAY OF SURGERY NOTEPATIENT NAME: Sofie AdrianMRN: [id number]: 1955Procedure(s) (LRB):EXPLORATORY LAPAROTOMY ADULT (N/A)LAPAROSCOPY DIAGNOSTIC (N/A)Surgeon(s):Adis [...] INR 1.1 01/09/2017Creatinine 0.58 01/09/2017EKG:sinus tachycardiaVitals: 01/10/17042 140BP: 122/72 146/78 140/73 119/75Pulse: 108 111 96 [...] medical management- COPD (chronic obstructive pulmonary disease) ([facility]) mild obstruction on PFT's 09/2013- [...] Takes 2 PO QDInpatient medications reviewed in [facility].I have interviewed and examined the patient. I have reviewed the medicalrecord and/or the pre-anesthesia evaluation, pertinent labs, and testresults.Significant changes in the patient's condition since the History andPhysical, not otherwise documented in primary service progress notes: NoTcoffey [facility] contains updated information obtained within 48 hours ofSurgery/Procedure.SIGNATURE : Joe Aguilar MD PATIENT NAME: Sofie YeboahTE: January 09, 2017 : 11:50 AM PAGER/CONTACT #: Normal [facility] APTTon 01-09-2017 aPTT 28.1 s Normal 23.0-32.4 [facility] Comment on above: Result Comment: Unfractionated [...] laboratory APTT reagent in use throughout the [facility]. Performed By: #### P T, PTT ####[address] [phone] aPTT 26.8 s Normal 23.0-32.4 [facility] Comment on above: Result Comment: Unfractionated [...] laboratory APTT reagent in use throughout the [facility]. Performed By: #### C BC, PT, PTT, BMP, MG1, PHOS ####[address] [phone] aPTT 27.7 s Normal 23.0-32.4 [facility] Comment on above: Result Comment: Unfractionated [...] laboratory APTT reagent in use throughout the [facility]. Performed By: #### C BC, PT, PTT, BMP, MG1, PHOS ####[address] [phone] BRIEF OP NOTon 01-09-2017 BRIEF OP NOT HNO ID: [id number] thor: Tanner Dollice: General SurgeryAuthor Type: ResidentType: Brief Op NoteFiled: 01/09/2017 2:26 PMNote Text:BRIEF OPERATIVE / PROCEDURE NOTELOG ID: [id number]/Procedure Date: 01/09/2017Incision/Procedure Start Time: 12:48 PMIncision Close/Procedure End Time: 2:08 PMSurgeon(s)/Proceduralist(s) and Granulator Tender(s):Surgeon(s) and Role:Panel 1: * Adis Landeros - [...] January 09, 2017 : 2:24 PM PHONE: [phone] Normal [facility] Basic Metabolic Panlon 01-09 Anion gap 18 mmol/L Normal 9-18 [facility] Comment on above: Performed By: #### CBC, PT, PTT, BMP, MG 1, PHOS ####[place] [id number] [place], [place] [phone] Calcium 8.6 mg/dL Normal 8.5-10.5 [facility] Comment on above: Performed By: #### CBC, PT, PTT, BMP, MG 1, PHOS ####[address] [phone] Chloride 102 mmol/L Normal 98-110 [facility] Comment on above: Performed By: #### CBC, PT, PTT, BMP, MG 1, PHOS ####[place] [address] CO2 18 mmol/L Low 23-32 [facility] Comment on above: Performed By: #### CBC, PT, PTT, BMP, MG 1, PHOS ####[place] [address] Creatinine 0.58 mg/dL Low 0.70-1.40 [facility] Comment on above: Performed By: #### CBC, PT, PTT, BMP, MG 1, PHOS ####[place] [address] eGFR (non-black) mL/min/{1.73_m2} Normal >60 [facility] Comment on above: Performed By: #### CBC, PT, PTT, BMP, MG 1, PHOS ####[place] [address] Glucose mass conc 171 mg/dL High 65-100 [facility] Comment on above: Performed By: #### CBC, PT, PTT, BMP, MG 1, PHOS ####[place] [address] Potassium molar conc 3.8 mmol/L Normal 3.5-5.0 [facility] Comment on above: Performed By: #### CBC, PT, PTT, BMP, MG 1, PHOS ####[place] [address] Sodium 138 mmol/L Normal 132-148 [facility] Comment on above: Performed By: #### CBC, PT, PTT, BMP, MG 1, PHOS ####[place] [phone] Urea nitrogen 12 mg/dL Normal 8-25 [facility] Comment on above: Performed By: #### CBC, PT, PTT, BMP, MG 1, PHOS ####[place] [phone] Anion gap 16 mmol/L Normal 9-18 [facility] Comment on above: Performed By: #### CBC, PT, PTT, BMP, MG 1, PHOS ####[place] [phone] Calcium 8.8 mg/dL Normal 8.5-10.5 [facility] Comment on above: Performed By: #### CBC, PT, PTT, BMP, MG 1, PHOS ####[place] [phone] Chloride 100 mmol/L Normal 98-110 [facility] Comment on above: Performed By: #### CBC, PT, PTT, BMP, MG 1, PHOS ####[place] [phone] CO2 20 mmol/L Low 23-32 [facility] Comment on above: Performed By: #### CBC, PT, PTT, BMP, MG 1, PHOS ####[place] [phone] Creatinine 0.54 mg/dL Low 0.70-1.40 [facility] Comment on above: Performed By: #### CBC, PT, PTT, BMP, MG 1, PHOS ####[place] [phone] eGFR (non-black) mL/min/{1.73_m2} Normal >60 [facility] Comment on above: Performed By: #### CBC, PT, PTT, BMP, MG 1, PHOS ####[place] [phone] Glucose mass conc 159 mg/dL High 65-100 [facility] Comment on above: Performed By: #### CBC, PT, PTT, BMP, MG 1, PHOS ####[place] [phone] Potassium molar conc 3.8 mmol/L Normal 3.5-5.0 [facility] Comment on above: Performed By: #### CBC, PT, PTT, BMP, MG 1, PHOS ####[place] [id number] [place], [place] [phone] Sodium 136 mmol/L Normal 132-148 [facility] Comment on above: Performed By: #### CBC, PT, PTT, BMP, MG 1, PHOS ####[place] [address] [place], [place] [phone] Urea nitrogen 13 mg/dL Normal 8-25 [facility] Comment on above: Performed By: #### CBC, PT, PTT, BMP, MG 1, PHOS ####[place] [id number] [place] [phone] CASE MANAGEMon 01-09-2017 CASE MANAGEM HNO ID: [id number] thor: Kathryn Melvin (Lsw)uloService: Care ManagementAuthor Type: Social WorkerType: Care Mgt Progress NoteFiled: 01/09/2017 3:10 PMNote Text:CARE MANAGEMENT PROGRESS NOTESERVICE DATE: 01/09/2017SERVICE TIME: 3:00 PM LOS: 1 dayNeeds Prior to Discharge: To Be Determined;Other: See Comment ([facility]ed initial assessment process. Pt currently at surgery. CM willtry again another time. )SIGNATURE: NYASIA Higgins PATIENT NAME: Sofie AdrianDATE: January 09, 2017 : 3:10 PM PAGER/CONTACT #: [phone] Normal [facility] CBCon 01-09-2017 Erythrocyte distribution width Auto Ratio (RBC) 12.4 % Normal 11.5-15.0 [facility] Comment on above: Performed By: #### CBC, PT, PTT, BMP, MG 1, PHOS ####[place] [id number] [place] [phone] Erythrocytes (RBC) 3.82 10*6/uL Low 3.90-5.20 [facility] Comment on above: Performed By: #### CBC, PT, PTT, BMP, MG 1, PHOS ####[facility] [place] [phone] Hematocrit (HCT) 37.2 % Normal 36.0-46.0 [facility] Comment on above: Performed By: #### CBC, PT, PTT, BMP, MG 1, PHOS ####[place] [address] Hemoglobin mass conc (Bld) 12.3 g/dL Normal 11.5-15.5 [facility] Comment on above: Performed By: #### CBC, PT, PTT, BMP, MG 1, PHOS ####[place] [address] MCH 32.2 pG Normal 26.0-34.0 [facility] Comment on above: Performed By: #### CBC, PT, PTT, BMP, MG 1, PHOS ####[place] [address] MCHC mass conc (RBC) 33.1 g/dL Normal 30.5-36.0 [facility] Comment on above: Performed By: #### CBC, PT, PTT, BMP, MG 1, PHOS ####[place] [phone] MCV 97.4 fL Normal 80.0-100.0 [facility] Comment on above: Performed By: #### CBC, PT, PTT, BMP, MG 1, PHOS ####[place] [address] Platelet mean volume (PMV) 11.0 fL Normal 9.0-12.7 [facility] Comment on above: Performed By: #### CBC, PT, PTT, BMP, MG 1, PHOS ####[place] [phone] Platelets 180 10*3/uL Normal 150-400 [facility] Comment on above: Performed By: #### CBC, PT, PTT, BMP, MG 1, PHOS ####[place] [phone] WBC (Leukocytes) 13.84 10*3/uL High 3.70-11.00 [facility] Comment on above: Performed By: #### CBC, PT, PTT, BMP, MG 1, PHOS ####[place] [address] Erythrocyte distribution width Auto Ratio (RBC) 12.7 % Normal 11.5-15.0 [facility] Comment on above: Performed By: #### CBC, PT, PTT, BMP, MG 1, PHOS ####[place] [address] Erythrocytes (RBC) 3.80 10*6/uL Low 3.90-5.20 [facility] Comment on above: Performed By: #### CBC, PT, PTT, BMP, MG 1, PHOS ####[place] [address] Hematocrit (HCT) 36.7 % Normal 36.0-46.0 [facility] Comment on above: Performed By: #### CBC, PT, PTT, BMP, MG 1, PHOS ####[place] [address] Hemoglobin mass conc (Bld) 12.4 g/dL Normal 11.5-15.5 [facility] Comment on above: Performed By: #### CBC, PT, PTT, BMP, MG 1, PHOS ####[place] [address] MCH 32.6 pG Normal 26.0-34.0 [facility] Comment on above: Performed By: #### CBC, PT, PTT, BMP, MG 1, PHOS ####[place] [address] MCHC mass conc (RBC) 33.8 g/dL Normal 30.5-36.0 [facility] Comment on above: Performed By: #### CBC, PT, PTT, BMP, MG 1, PHOS ####[place] [address] MCV 96.6 fL Normal 80.0-100.0 [facility] Comment on above: Performed By: #### CBC, PT, PTT, BMP, MG 1, PHOS ####[address] [phone] Platelet mean volume (PMV) 11.1 fL Normal 9.0-12.7 [facility] Comment on above: Performed By: #### CBC, PT, PTT, BMP, MG 1, PHOS ####[place] [phone] Platelets 186 10*3/uL Normal 150-400 [facility] Comment on above: Performed By: #### CBC, PT, PTT, BMP, MG 1, PHOS ####[place] [phone] WBC (Leukocytes) 10.34 10*3/uL Normal 3.70-11.00 [facility] Comment on above: Performed By: #### CBC, PT, PTT, BMP, MG 1, PHOS ####[address] [phone] CONSULTon 01-09-2017 CONSULT HNO ID: [id number] thor: Araceli Gamez (Rn) RAJ Mcneilervice: Wound/OstomyAuthor [...] with single usesurgical marker.Assessment/Plan-stoma site marking complete-staffing mgr to monitor daniel and place Tegaderm clear transparent dressingsas needed-Plan per surgical team, will remain available as needed.To contact Wound/Ostomy Care, please call the Wound Care Hotline at [phone] leave a message.SIGNATURE: Araceli Mcneil RN PATIENT NAME: Sofie AdrianDATE: January 09, 2017 : 4:00 PM PAGER/CONTACT #: [phone] Normal [facility] HISTORY PHYSICALon HISTORY PHYSICAL HNO ID: [id number] thor: Eloise (TREY Velásquezervice: ColorectalAuthor Type: ResidentType: HANDPFiled: 01/09/2017 12:05 AMNote Text:HISTORY AND PHYSICAL EXAMINATIONSERVICE DATE: 01/08/2017SERVICE TIME:PRIMARY CARE PHYSICIAN: TIERNEY MercerJECTLIZBETHCHIGRACE COMPLAINT:HPI: This is a 61 year old [...] by mouth once daily. Disp: Rfl: 09/18/2015 [id number] (PRILOSEC) 40 mg capsule Take 1 capsule by mouth once daily.(Patient taking differently: Take 40 mg by mouth twice daily.) Disp: 30capsule Rfl: 4 09/19/2015 at 0700METOPROLOL TARTRATE ORAL Take 25 mg by mouth. Disp: Rfl: 09/19/2015 [id number] HCl 20 mg tablet Take 40 mg [...] or skindiscoloration. Good capillary refill., No ulcersNEURO: IIb6Jpedvsv Vitals for the past 24 hrs: BP Temp Temp src Pulse Resp UaT55301/08/17 2301 151/92 36.4 ?C (97.6 ?F) Oral [...] LLQ ttp. S.Lactate 1. Concern forSBO.-Admission to [facility]-NPO, NGT-IVF @ 100 ml/hr-strict I AND O-Pain meds: tylenol and morphine-Zofran available PRN-KUB stat to confirm NGT placement-Lab, type and screen, stat-DVT prophylaxis: SCD and SQHSIGNATURE: Eloise Langley MD PATIENT NAME: Sofie AdrianDATE: January 08, 2017 : 11:15 PM PAGER/CONTACT #: [phone] [facility] Magnesiumon 01-09-2017 Magnesium 1.7 mg/dL Normal 1.7-2.6 [facility] Comment on above: Performed By: #### CBC, PT, PTT, BMP, MG 1, PHOS ####[address] [phone] Magnesium 1.9 mg/dL Normal 1.7-2.6 [facility] Comment on above: Performed By: #### CBC, PT, PTT, BMP, MG 1, PHOS ####[address] [phone] NURSING PROGon 01-09-2017 NURSING PROG HNO ID: [id number] thor: Rosi (Rn) Elva Careyice: (none)Author Type: Registered NurseType: Nursing Progress NoteFiled: 01/09/2017 10:16 AMNote Text: Nursing Progress NotePatient Name: Sofie Donald JakeMRN: [id number] Location: [place] [address]/[id number]-12 _Daily Note:pt is axox3, on room air, up with assist. Ng tube in place.Plan for surgery today. No needs voiced at this time. Will continue tomonitor the patient. Updated daughter on patient's status, ok'd bypatient.[facility] Jake [place]. Updated BUSINESS INFORMATION CONSULTANT medication list and also c/o indigestion.Thanks. KADEN Aranda [id number] note was completed by: Rosi Carey RN Normal [facility] NURSING PROG HNO ID: [id number] thor: Melissa Saucedo (Rn) Elva Pondice: (none)Author Type: Registered NurseType: Nursing Progress NoteFiled: 01/09/2017 5:07 AMNote Text: Nursing Progress NotePatient Name: Sofie Donald JakeMRN: [id number] Location: [place] [address]/XY-[id number]-55 _ 0400 Patient complaining of abdominal pain 02/03 moaning at intervalsand holding her stomach. Patient last medicated with Dilaudid 0.5 mg [id number]. Patient states it doesn't last very long. Text message sent toSurgical resident to notify.0415 Patient medicated with oxycodone 5 mg tablet as instructed bysurgical resident. NG clamped when patient took tablet.0515 NG reconnected to low suction. Patient states the Oxycodone noteffective for pain.This note was completed by: Melissa Pond RN [facility] NURSING PROG HNO ID: [id number] thor: Melissa Saucedo (Rn) Salty, RNService: (none)Author Type: Registered NurseType: Nursing Progress NoteFiled: 01/08/2017 11:01 PMNote Text: Nursing Progress NotePatient Name: Sofie Donadl JakeMRN: [id number] Location: [place] [address]/ZF-[id number] _Transfer Note:Patient transferred into room/unit 321 from [facility] in stablecondition. Actions taken: No futher actions taken at this time. Willcontinue to monitor and check with patient. Call placed to surgicalresident for orders.This note was completed by: Melissa Pond RN [facility] OPERATIVE NOon 01-09-2017 OPERATIVE NO HNO ID: [id number] thor: Adis Torrez: General SurgeryAuthor Type: PhysicianType: Operative ReportFiled: 01/12/2017 2:34 PMNote Text:[facility] - Operative ReportSOFIE ADRIAN CDOB: 1955 AGE: 61 SEX: FMRN: [id number] ACCTNUM: [id number] [facility] [place]: INTM LOCATION: [id number] PHYSICIAN: Adis Landeros M.D.DATE OF PROCEDURE: 01/09/2017PREOPERATIVE DIAGNOSIS: Small bowel obstruction.POSTOPERATIVE DIAGNOSIS: Same. Strangulated internal hernia.NAME OF OPERATION: Diagnostic laparoscopy and lysis of adhesions.SURGEON: Adis Landeros M.D.SHIFT COMMANDER: Tanner Ordoñez M.D.ANESTHESIA: General.ESTIMATED BLOOD LOSS: Minimal.COMPLICATIONS: [...] we placed a drain in the pelvis, a20-Cwbsik drain made to mature through the lower 5-mm port on the rightside of the abdomen. The drain was secured to the skin using 3-0nylon, and the subumbilical fascia was approximated egkwqiqzjac-ww-zonvp 0 Polysorb suture. All port sites were [...] was presentthrough the entire operation.Adis Landeros M.D.General SurgeryDA:[id number]: 01/09/2017 15:07:23T: 01/10/2017 01:35:34Job #: [id number] [facility] PROGRESSon 01-09-2017 Cholesterol HNO ID: [id number] thor: Tanner (Mihaela) Mckinley: General SurgeryAuthor Type: ResidentType: Progress NotesFiled: 01/09/2017 6:52 PMNote Text:Post-operative checkSubjective: No acute events. Pain controlled. No nausea/vomiting.Objective:Blo od pressure 112/66, pulse 90, temperature 36.9 ?C (98.4 ?F),temperature source Oral, resp. rate 17, height 154.9 cm (5' 1 ), fwzazv54.1 kg (141 lb 6.4 oz), SpO2 97 %.General: NAD, alert, orientedLungs: nonlabored breathingAbdomen: soft, nondistended, periincisional and left sided tenderness,incisions C/D/IExtremities: warm, well perfusedAssessment and plan:61 year old female with SBO and strangulated internal hernia s/plaparoscopic lysis of adhesions. Doing well- NPO with IV fluids- NG to LIWS- Morphine INSIDE METER TESTER, tylenol for pain- SCD's and SQH for DVT prophylaxis- Encourage incentive spirometry and ambulationTanner Ordoñez MDGenest. mary[facility] [facility] Surgery ResidentPager [phone] [facility] PROGRESS HNO ID: [id number] thor: Adis Torrez: ColorectalAuthor Type: PhysicianType: Progress NotesFiled: 01/09/2017 12:21 PMNote Text:Sofie Odilon [id number] SERVICE: Teresa HollingsworthSUBJECTIVEPatient is in a lot of pain, writhing in her bedNG in place, with moderately thick outputNo flatus no BMOBJECTIVEI/O:Date 01/08/17 07 - 01/09/17 0659 01/09/17 07 - 01/10/17 0659Shift 1150-9926 1695-2597 8901-6505 24 Hour Total 4722-2770 3514-75687848-2229 24 Hour TotalINTAKE IV 524 524 NS [...] lb 6.4 oz) SpO2 94% BMI 26.72 kg/p3QHNAWID: Alert, no distress, cooperativeLUNGS: Lungs clear to auscultation, Good diaphragmatic excursionCARDIAC: Normal S1 and S2; no rubs, murmurs, or gallopsABDOMEN: Abdomen soft, moderately distended, diffusely tender with MPT inLLQ, BS increased, No masses or organomegaly, NG tube with bileous outputEXTREMITIES: Extremities normal, no deformities, edema, clubbing or skindiscoloration.NEURO: NAx4Imhn:Current Facility-Administered Medications:piperacillin-tazo bactam 3.375 g in dextrose (iso-osmotic) 50 mL (ZOSYN)3.375 g INTRAVENOUS q 6 H Bessie S (Pa) Miglionicomorphine INSIDE METER TESTER 1 mg/mL in NaCl 0.9% 100 mL INTRAVENOUS CONTINUOUS Bessie S(Pa) Miglionicomorphine 1 mg/mL INSIDE METER TESTER CLINICIAN DOSE 1 mg 1 mg INTRAVENOUS q 6 H PRNMelissa S (Pa) MiglionicoFLUoxetine 40 mg cap(s) (PROzac) 40 mg ORAL DAILY Eloise (Res) MD Korin40 mg at 01/09/17 0757NaCl 0.9% iv infusion 125 mL/hr INTRAVENOUS CONTINUOUS Bessie S (Pa)Miglionico Last Rate: 125 mL/hr at 01/09/17 0755 125 mL/hr at 197172gemwqohchid 4 mg tab(s) (ZOFRAN) 4 mg ORAL [...] 01/09/17 0757Labs:CBC, Coags, BMP, Mg, PhosRecent Labs 6201/08/095595IKS 13.84* 10.34HB 12.3 12.4HCT 37.2 36.7PLT 180 [...] Diet : NPO- Pain management: Start Morphine INSIDE METER TESTER, Tylenol- Nausea management: Zofran- DVT prophylaxis: Heparin- Trujillo status: Please place trujillo for better hemodynamic monitoring- Encourage IS and ambulation- Strict IANDOs- Seen and discussed with senior resident, will discuss with staffAkhil Weathers MD MPHPGY1, Department of General SurgeryPager: Alex TeamSept2016 9:12 AMSurgery attendingI have seen and examined [...] related to surgeryand/or anesthesia.Adis Landeros, Evan Landeros, [facility] AT[facility]Aept2016 12:20 PM Normal [facility] Phosphoruson 01-09-2017 Phosphate 3.0 mg/dL Normal 2.5-4.5 [facility] Comment on above: Performed By: #### CBC, PT, PTT, BMP, MG 1, PHOS ####[place] [id number] [place], [place] [phone] Phosphate 3.9 mg/dL Normal 2.5-4.5 [facility] Comment on above: Performed By: #### CBC, PT, PTT, BMP, MG 1, PHOS ####[address] [phone] Protimeon 01-09-2017 INR Coag RelTime (Bld) 1.1 {INR} Normal 0.9-1.3 [facility] Comment on above: Result Comment: Vitamin K Antagonist (VK A) Therapeutic Range: INR 2 to 3 (Target INR of 2.5)Note: For patients treated with VKA drugs, such as warfarin, the [place] [employer] 2012 Guideline recommends [...] 3).Dinesh LOVE et al. Chest 2012, 141:7S-47SNadeen LIU, et al. [facility] 2017, 70: 252-289 Performed By: #### P T, PTT ####[address] [phone] PT Sec 11.6 sec Normal 9.7-13.0 [facility] Comment on above: Performed By: #### PT, PTT ####[address] [phone] INR Coag RelTime (Bld) 1.1 {INR} Normal 0.9-1.3 [facility] Comment on above: Result Comment: Vitamin K Antagonist (VK A) Therapeutic Range: INR 2 to 3 (Target INR of 2.5)Note: For patients treated with VKA drugs, such as warfarin, the [place] [employer] 2012 Guideline recommends [...] al. Chest 2012, 141:7S-47SNadeen LIU, et al. [facility] 2017, 70: 252-289 Performed By: #### C BC, PT, PTT, BMP, MG1, PHOS ####[address] [phone] PT Sec 11.4 sec Normal 9.7-13.0 [facility] Comment on above: Performed By: #### CBC, PT, PTT, BMP, MG 1, PHOS ####[address] [phone] INR Coag RelTime (Bld) 1.1 {INR} Normal 0.9-1.3 [facility] Comment on above: Result Comment: Vitamin K Antagonist (VK A) Therapeutic Range: INR 2 to 3 (Target INR of 2.5)Note: For patients treated with VKA drugs, such as warfarin, the [place] [employer] 2012 Guideline recommends [...] 3).Dinesh LOVE, et al. Chest 2012, 141:7S-47SNadeen RA, et al. [facility] 2017, 70: 252-289 Performed By: #### C BC, PT, PTT, BMP, MG1, PHOS ####[address] [phone] PT Sec 11.1 sec Normal 9.7-13.0 [facility] Comment on above: Performed By: #### CBC, PT, PTT, BMP, MG 1, PHOS ####[address] [phone] Type and Screenon 01-09-2017 ABO/RH(D) Negative Normal [facility] Comment on above: Performed By: #### TSCR ####[place] [phone] [place] [address] [phone] Antibody Screen Negative Normal [facility] Comment on above: Performed By: #### TSCR ####[place] [phone] Urinalysis with Microscopico n 01-09-2017 Bilirubin, Urine Negative Normal Negative [facility] Comment on above: Performed By: #### UAWMIC ####[place] [address] [place], [place] [phone] Comments SEE COMMENT Normal [facility] Comment on above: Result Comment: Microscopic Examination Performed Performed By: #### U AWMIC ####[facility] [place] [address] Erythrocytes (RBC) Rare Critically abnormal Negative [facility] Comment on above: Performed By: #### UAWMIC ####[facility] rejrvcr47102 [place] [address] Hemoglobin mass conc (Bld) Negative Normal Negative [facility] Comment on above: Performed By: #### UAWMIC ####[facility] nu[address] [place] [address] Leukest Trace Critically abnormal Negative [facility] Comment on above: Performed By: #### UAWMIC ####[facility] [place], [place] [phone] pH of blood 6.0 [pH] Normal 5.0-8.0 [facility] Comment on above: Performed By: #### UAWMIC ####[facility] Protein, Urine Negative Normal Negative [facility] Comment on above: Performed By: #### UAWMIC ####[facility] etgunyy963[address] Specific [place], Ur 1.020 Normal 1.005-1.030 [facility] Comment on above: Result Comment: Result checked and verif ied Performed By: #### U AWMIC ####[facility] [address] Urine, clarity Hazy Critically abnormal Clear [facility] Comment on above: Performed By: #### UAWMIC ####[facility] faweclw14559 [address] Urine, color Yellow Normal Yellow [facility] Comment on above: Performed By: #### UAWMIC ####[facility] jtcwvxm94088 [place] [phone] Urine, epithelial cells in sediment SEE COMMENT Critically abnormal Negative [facility] Comment on above: Result Comment: RareSquamous Epithelial Cells Performed By: #### U AWMIC ####[facility] [place], [place] [phone] Urine, glucose presence Negative Normal Negative [facility] Comment on above: Performed By: #### UAWMIC ####[facility] djkeagh12212 [place] [phone] Urine, ketones presence Negative Normal Negative [facility] Comment on above: Performed By: #### UAWMIC ####[facility] ucnsduj96642 [place] [phone] Urine, mucus presence in sediment Present Normal [facility] Comment on above: Performed By: #### UAWMIC ####[facility] yyrfkze97206 [place] [phone] Urine, nitrite presence Negative Normal Negative [facility] Comment on above: Performed By: #### UAWMIC ####[facility] opwbmzv30683 [place] [phone] Urine, urobilinogen <2.0 Normal <2.0 [facility] Comment on above: Performed By: #### UAWMIC ####[facility] pmdaxpj45904 [place] [address] WBC (Leukocytes) 5-10 Critically abnormal Negative [facility] Comment on above: Performed By: #### UAWMIC ####[facility] aflptov54310 [place] [phone] XR ABDOMEN 1V SUPINEon 01-09 XR ABDOMEN [...] loops of small bowel in the upper abdomen.Public Address Servicer: GIO Transcribe Date/Time: Jan 09 2017 12:19ADictated by : GLENN MARTINEZ MDThilois examination was interpreted and the report reviewed and electronically signed by: GLENN MARTINEZ MD on Jan 09 2017 12:20AM [id number] [facility] XR CHEST 1V FRONTALon 2016 XR [...] volumes with suggestion of mild left base atelectasis.Public Address Servicer: GIO Transcribe Date/Time: Jan 09 2017 6:10ADictated by : Sherie GIANG examination was interpreted and the report reviewed and electronically signed by: SHAAN RADER MD on Jan 09 2017 6:13AM [id number] Normal [facility] HOSPon 01-08-2017 HOSP Patient:Sofie Adrian CMRN: Height:5' [...] g in dextrose (iso-osmotic) 50 mL (ZOSYN)morphine INSIDE METER TESTER 1 mg/mL in NaCl 0.9% 100 mLmorphine 1 mg/mL INSIDE METER TESTER CLINICIAN DOSE 1 mgFLUoxetine 40 mg cap(s) [...] 3.5HEMA* 37.2 % 01/09/2017 46.0 36.0Progress Notes (FV PK3B):Melissa Pond RN, RN 01/08/2017 11:01 PM Signed Nursing Progress NotePatient Name: Sofie AdrianMRN: [id number] Location: [address]/PC-PB6T-19 _Transfer Note:Patient transferred into room/unit 321 from [facility] in stablecondition. Actions taken: No futher actions taken at this time. Will continueto monitor and check with patient. Call placed to rn surgical for orders.This note was completed by: Bryan [...] or skindiscoloration. Good capillary refill., No ulcersNEURO: LQt0[place]uhbyks Vitals for the past 24 hrs: BP Temp Temp src Pulse Resp XwG92001/08/17 2301 151/92 36.4 ?C (97.6 ?F) Oral [...] ttp. S.Lactate 1. Concern for SBO.-Admission to [facility]-NPO, NGT-IVF @ 100 ml/hr-strict I AND O-Pain meds: tylenol and morphine-Zofran available PRN-KUB stat to confirm NGT placement-Lab, type and screen, stat-DVT prophylaxis: SCD and SQHSIGNATURE: Eloise Langlye MD PATIENT NAME: Sofie AdrianDATE: January 08, 2017 : 11:15 PM PAGER/CONTACT #: [phone] Anibal Pond, RN, RN 01/09/2017 5:07 AM Addendum Nursing Progress NotePatient Name: Sofie AdrianMRN: [id number] Location: [place] [address]/ZB-ZA0O-36 _ 0400 Patient complaining of abdominal pain 02/03 moaning at intervals andholding her stomach. Patient [...] Brielle Landeros MD 01/09/2017 12:21 PM AddendumSofie [id number] SERVICE: Teresa HollingsworthSUBJECTIVEPatient is in a lot of pain, writhing in her bedNG in place, with moderately thick outputNo flatus no BMOBJECTIVEI/O:Date 01/08/17 07 - 01/09/17 0659 01/09/17 07 - 01/10/17 0659Shift 7083-8510 7277-3850 0876-6712 24 Hour Total 5376-5832 2762-6055 2300-144989 Hour TotalINTAKE IV 524 524 NS 0.9% [...] lb 6.4 oz) SpO2 94% BMI 26.72 kg/n7EGSXSNS: Alert, no distress, cooperativeLUNGS: Lungs clear to auscultation, Good diaphragmatic excursionCARDIAC: Normal S1 and S2; no rubs, murmurs, or gallopsABDOMEN: Abdomen soft, moderately distended, diffusely tender with MPT in LLQ,BS increased, No masses or organomegaly, NG tube with bileous outputEXTREMITIES: Extremities normal, no deformities, edema, clubbing or skindiscoloration.NEURO: JFk9Nskb:Current Facility-Administered Medications:piperacillin-tazo bactam 3.375 g in dextrose (iso-osmotic) 50 mL (ZOSYN) 3.375 gINTRAVENOUS q 6 H Bessie S (Pa) Miglionicomorphine INSIDE METER TESTER 1 mg/mL in NaCl 0.9% 100 mL INTRAVENOUS CONTINUOUS Bessie S (Pa)Miglionicomorphine 1 mg/mL INSIDE METER TESTER CLINICIAN DOSE 1 mg 1 mg INTRAVENOUS [...] Diet : NPO- Pain management: Start Morphine INSIDE METER TESTER, Tylenol- Nausea management: Zofran- DVT prophylaxis: Heparin- Trujillo status: Please place trujillo for better hemodynamic monitoring- Encourage IS and ambulation- Strict IANDOs- Seen and discussed with senior resident, will discuss with staffAkhil Weathers MD MPHPGY1, Department of General SurgeryPager: Alex TeamSept2016 9:12 AMSurgery attendingI have seen and examined [...] to surgery and/or anesthesia.Adis Landeros, Evan Landeros, [facility]2016 12:20 PMPrevious Debby Carey RN, RN 01/09/2017 10:16 AM Addendum Nursing Progress NotePatient Name: Sofie AdrianMRN: [id number] Location: [place] [address]/UV-IC0O-74 _Daily Note:pt is axox3, on room air, up with assist. Ng tube in place. Plan forsurgery today. No needs voiced at this time. Will continue to monitor thepatient. Updated daughter on patient's status, ok'd by patient.1016 [id number], Adrian. Updated BUSINESS INFORMATION CONSULTANT medication list and also c/o indigestion.Thanks. Rosi, KADEN [id number] note was completed by: Rosi Carey, RNPrevious Yoan Aguilar MD 01/09/2017 11:54 AM SignedREGIONAL ANESTHESIOLOGY DAY OF SURGERY NOTEPATIENT NAME: Sofie Donald JakeMRN: [id number]: 1955Procedure(s) (LRB):EXPLORATORY LAPAROTOMY ADULT (N/A)LAPAROSCOPY DIAGNOSTIC (N/A)Surgeon(s):Adis [...] INR 1.1 01/09/2017Creatinine 0.58 01/09/2017EKG:sinus tachycardiaVitals: 442 140BP: 122/72 146/78 140/73 119/75Pulse: 108 111 96 [...] (Hcc)Alcohol AbuseStatus Post SurgerySbo (Small Bowel Obstruction) ([facility])PAST MEDICAL HISTORYDiagnosis Date- Acid reflux- Alcohol abuse Bottle of wine daily- Arthritis- Carotid stenosis medical management- COPD (chronic obstructive pulmonary disease) ([facility]) mild obstruction on PFT's 09/2013- Former smoker 10 pack years, quit 2003- High cholesterol- History of rheumatic fever- Hypertension- PUD (peptic ulcer disease) 02/2014- Tachycardia- Ulcer ([facility])- VertigoPAST SURGICAL HISTORYProcedure Laterality Date- [...] otherwise documented in primary service progress notes: [facility] contains updated information obtained within 48 hours of Surgery/Procedure.SIGNATURE: Joe Aguilar MD PATIENT NAME: Sofie AdrianDATE: January 09, 2017 : 11:50 AM PAGER/CONTACT #: [facility] OT-XR KUB 1 VIEW IMPORTon OT-XR KUB 1 VIEW IMPORT Images were obtained outside of [facility] [id number] [facility] SR-CT ABD/PELVIS W CON IMPOR Ton 01-08-2017 SR-CT ABD/PELVIS W CON IMPORT Images were obtained outside of [facility] [id number] [facility] SR-CT ABD/PELVIS WO CON IMPO RTon 01-07-2017 SR-CT ABD/PELVIS WO CON IMPORT Images were obtained outside of [facility] [id number] [facility] Vital Signs Date Time Vital Sign Value Performing Clinician Nathalie stone 01-09-2025 11:040 Body height 144.8 cm Dayton Ozuna DPM FACFAS Work Phone: [facility] 01-09-2025 11:27-040 Body mass index (BMI) [Ratio] 25.53 kg/m2 Dayton Ozuna DPM FACFAS Work Phone: [facility] 01-09-2025 11:27040 Body weight 53.52 kg Dayton Ozuna DPM FACFAS Work Phone: [facility] 01-09-2025 11:27-040 Diastolic blood pressure 80 mm[Hg] Dayton Dolce DPM FACFAS Work Phone: [facility] 01-09-2025 11:27-0400 Heart rate 66 /min Dayton Ozuna DPM FACFAS Work Phone: [facility] 01-09-2025 11:27-0400 Systolic blood pressure 120 mm[Hg] Dayton Ozuna DPM FACFAS Work Phone: [facility] 10-26-2024 10:38-0400 Body mass index (BMI) [Ratio] 25.09 kg/m2 Rosario Claribelz C[employer]OMER EXPERIENCE PROFESSIONAL Work Phone: [facility] 10-26-2024 10:38-0400 Body temperature 98.49 [degF] Rosario Claribelz CUSTOMER EXPERIENCE PROFESSIONAL Work Phone: [facility] 10-26-2024 10:38-0400 Body weight 53.71 kg Rosario Barberhholz CUSTOMER EXPERIENCE PROFESSIONAL Work Phone: [facility] 10-26-2024 10:38-0400 Diastolic blood pressure 82 mm[Hg] Rosario Claribelz CUSTOMER EXPERIENCE PROFESSIONAL Work Phone: [facility] 10-26-2024 10:38-0400 Heart rate 68 /min Rosario Barberhholz CUSTOMER EXPERIENCE PROFESSIONAL Work Phone: [facility] 10-26-2024 10:38-0400 Respiratory rate 18 /min Rosario Barberhholz CUSTOMER EXPERIENCE PROFESSIONAL Work Phone: [facility] 10-26-2024 10:38-0400 SaO2% (BldA) [Mass fraction] 97 % Rosario Matiasholz CUSTOMER EXPERIENCE PROFESSIONAL Work Phone: [facility] 10-26-2024 10:38-0400 Systolic blood pressure 118 mm[Hg] Rosario Barberhholz CUSTOMER EXPERIENCE PROFESSIONAL Work Phone: [facility] 05-10-2024 15:57-0500 Body height 146.3 cm Rosario Matiasholz CUSTOMER EXPERIENCE PROFESSIONAL Work Phone: [facility] 05-10-2024 15:57-0500 Body mass index (BMI) [Ratio] 25.51 kg/m2 Rosario Aichholz CUSTOMER EXPERIENCE PROFESSIONAL Work Phone: [facility] 05-10-2024 15:57-0500 Body temperature 98.8 [degF] Rosario Matisaholz CUSTOMER EXPERIENCE PROFESSIONAL Work Phone: [facility] 05-10-2024 15:57-0500 Body weight 54.61 kg Rosario Barberhholz CUSTOMER EXPERIENCE PROFESSIONAL Work Phone: [facility] 05-10-2024 15:57-0500 Diastolic blood pressure 78 mm[Hg] Rosario Barberhholz CUSTOMER EXPERIENCE PROFESSIONAL Work Phone: [facility] 05-10-2024 15:57-0500 Heart rate 84 /min Rosario Barberhholz CUSTOMER EXPERIENCE PROFESSIONAL Work Phone: [facility] 05-10-2024 15:57-0500 Respiratory rate 19 /min Rosario Barberhholz CUSTOMER EXPERIENCE PROFESSIONAL Work Phone: [facility] 05-10-2024 15:57-0500 SaO2% (BldA) [Mass fraction] 98 % Rosario Matiasholz CUSTOMER EXPERIENCE PROFESSIONAL Work Phone: [facility] 05-10-2024 15:57-0500 Systolic blood pressure 108 mm[Hg] Rosario Barberhholz CUSTOMER EXPERIENCE PROFESSIONAL Work Phone: [facility] 04-05-2024 13:23-0500 Body height 146.3 cm Rosario Barberhholz CUSTOMER EXPERIENCE PROFESSIONAL Work Phone: [facility] 04-05-2024 13:23-0500 Body mass index (BMI) [Ratio] 25.3 kg/m2 Rosario Barberhholz CUSTOMER EXPERIENCE PROFESSIONAL Work Phone: [facility] 04-05-2024 13:23-0500 Body temperature 97.59 [degF] Rosario Barberhholz CUSTOMER EXPERIENCE PROFESSIONAL Work Phone: [facility] 04-05-2024 13:23-0500 Body weight 54.16 kg Rosario Barberhholz CUSTOMER EXPERIENCE PROFESSIONAL Work Phone: [facility] 04-05-2024 13:23-0500 Diastolic blood pressure 76 mm[Hg] Orsario Matiasholz CUSTOMER EXPERIENCE PROFESSIONAL Work Phone: [facility] 04-05-2024 13:23-0500 Heart rate 78 /min Rosario Aichholz CUSTOMER EXPERIENCE PROFESSIONAL Work Phone: [facility] 04-05-2024 13:23-0500 Respiratory rate 18 /min Rosario Aichholz CUSTOMER EXPERIENCE PROFESSIONAL Work Phone: [facility] 04-05-2024 13:23-0500 SaO2% (BldA) [Mass fraction] 98 % Rosario Barberhholz CUSTOMER EXPERIENCE PROFESSIONAL Work Phone: [facility] 04-05-2024 13:23-0500 Systolic blood pressure 120 mm[Hg] Rosario Aichholz CUSTOMER EXPERIENCE PROFESSIONAL Work Phone: [facility] 03-02-2024 14:24-0500 Body height 146.3 cm Rosario Barberhholz CUSTOMER EXPERIENCE PROFESSIONAL Work Phone: [facility] 03-02-2024 14:24-0500 Body mass index (BMI) [Ratio] 25.39 kg/m2 Rosario Barberhholz CUSTOMER EXPERIENCE PROFESSIONAL Work Phone: [facility] 03-02-2024 14:24-0500 Body temperature 98.71 [degF] Rosario Barberhholz CUSTOMER EXPERIENCE PROFESSIONAL Work Phone: [facility] 03-02-2024 14:24-0500 Body weight 54.34 kg Rosario Barberhholz CUSTOMER EXPERIENCE PROFESSIONAL Work Phone: [facility] 03-02-2024 14:24-0500 Diastolic blood pressure 84 mm[Hg] Rosario Aichholz CUSTOMER EXPERIENCE PROFESSIONAL Work Phone: [facility] 03-02-2024 14:24-0500 Heart rate 69 /min Rosario Aichholz CUSTOMER EXPERIENCE PROFESSIONAL Work Phone: [facility] 03-02-2024 14:24-0500 Respiratory rate 19 /min Rosario Aichholz CUSTOMER EXPERIENCE PROFESSIONAL Work Phone: [facility] 03-02-2024 14:24-0500 SaO2% (BldA) [Mass fraction] 98 % Rosario Barberhholz CUSTOMER EXPERIENCE PROFESSIONAL Work Phone: [facility] 03-02-2024 14:24-0500 Systolic blood pressure 122 mm[Hg] Rosario Aichholz CUSTOMER EXPERIENCE PROFESSIONAL Work Phone: [facility] 06-11-2023 13:30-0500 Body height 146.3 cm Rosario Aichholz CUSTOMER EXPERIENCE PROFESSIONAL Work Phone: [facility] 06-11-2023 13:30-0500 Body mass index (BMI) [Ratio] 28.9 kg/m2 Rosario Aichholz CUSTOMER EXPERIENCE PROFESSIONAL Work Phone: [facility] 06-11-2023 13:30-0500 Body temperature 97.11 [degF] Rosario Aichholz CUSTOMER EXPERIENCE PROFESSIONAL Work Phone: [facility] 06-11-2023 13:30-0500 Body weight 61.87 kg Rosario Aichholz CUSTOMER EXPERIENCE PROFESSIONAL Work Phone: [facility] 06-11-2023 13:30-0500 Diastolic blood pressure 78 mm[Hg] Rosario Aichholz CUSTOMER EXPERIENCE PROFESSIONAL Work Phone: [facility] 06-11-2023 13:30-0500 Heart rate 75 /min Rosario Aichholz CUSTOMER EXPERIENCE PROFESSIONAL Work Phone: [facility] 06-11-2023 13:30-0500 Respiratory rate 18 /min Rosario Aichholz CUSTOMER EXPERIENCE PROFESSIONAL Work Phone: [facility] 06-11-2023 13:30-0500 SaO2% (BldA) [Mass fraction] 95 % Rosario Aichholz CUSTOMER EXPERIENCE PROFESSIONAL Work Phone: [facility] 06-11-2023 13:30-0500 Systolic blood pressure 122 mm[Hg] Rosario Aichholz CUSTOMER EXPERIENCE PROFESSIONAL Work Phone: [facility] Healthcare Encounters Encounter Date Encounter Type Care Provider Facility Start: 01-09-2025 End: 01-09-2025 Dalton Ozuna DPM FACFAS Work Phone: [facility] Start: 01-09-2025 End: 01-09-2025 Bamboo flowsheet Dayton Ozuna DPM FACFAS Work Phone: [facility] Start: 01-09-2025 End: 01-09-2025 Telephone encounter Dayton Ozuna DPM FACFAS Work Phone: [facility] Start: 01-09-2025 End: 01-09-2025 ambulatory DAYTON Isaac DOLSKYE Not Available Start: 01-09-2025 End: 01-09-2025 Office outpatient new 30 minutes Dayton Ozuna DPM FACFAS Work Phone: [facility] Comment on above: Metatarsal deformity , left (Primary Dx); Left foot pain; Hammer toe of left foot; Other enthesopathy of right foot and ankle; Hammer toe of right foot; Other synovitis and tenosynovitis, right ankle and foot [M65.871] Start: 12-20-2024 End: 12-21-2024 Clinisync Result Encounter Generic External Data Provider [facility] Unsolicited Start: 12-20-2024 End: 12-21-2024 Clinisync Result Encounter Generic External Data Provider [facility] External [facility] Unsolicited Start: 11-16-2024 End: 11-18-2024 Clinisync Result Encounter Generic External Data Provider [facility] External [facility] Unsolicited Start: 11-16-2024 End: 11-18-2024 Clinisync Result Encounter Generic External Data Provider [facility] Unsolicited Start: 10-26-2024 End: 10-26-2024 Patient encounter procedure Rosario Amezquita CUSTOMER EXPERIENCE PROFESSIONAL Work Phone: [facility] Comment on above: Medicare annual well ness visit, subsequent (Primary Dx); Major depressive disorder, single episode, in full remission ; Mixed hyperlipidemia ; Hx of opioid abuse ([facility]); Anxiety; Gastroesophageal reflux disease without esophagitis; Encounter for screening mammogram for malignant neoplasm of breast; Chronic bilateral low back pain without sciatica Start: 10-26-2024 End: 10-26-2024 ambulatory ROSARIO AMEZQUITA Not Available Start: 10-13-2024 End: 10-13-2024 Clinisync Result Encounter Generic External Data Provider [facility] External [facility] Unsolicited Start: 10-13-2024 End: 10-13-2024 Clinisync Result Encounter Generic External Data Provider [facility] Unsolicited Start: 10-09-2024 End: 10-10-2024 Refill Rosario Bia CUSTOMER EXPERIENCE PROFESSIONAL Work Phone: [facility] Comment on above: Osteoporosis, post-m enopausal ; Age related osteoporosis, unspecified pathological fracture presence Start: 10-06-2024 End: 10-06-2024 Clinisync Result Encounter Generic External Data Provider [facility] Unsolicited Start: 10-06-2024 End: 10-06-2024 Clinisync Result Encounter Generic External Data Provider [facility] External [facility] Unsolicited Start: 06-28-2024 End: 06-28-2024 Refill Rosario Bia C[employer]OMER EXPERIENCE PROFESSIONAL Work Phone: [facility] Comment on above: Chronic bilateral lo w back pain without sciatica Start: 06-28-2024 End: 06-28-2024 Telephone encounter Rosario Amezquita CUSTOMER EXPERIENCE PROFESSIONAL Work Phone: [facility] Start: 06-07-2024 End: 06-07-2024 Refill Rosario Bia CUSTOMER EXPERIENCE PROFESSIONAL Work Phone: [facility] Comment on above: Age-related osteopor osis without current pathological fracture ([facility]) Start: 05-26-2024 End: 05-26-2024 Clinisync Result Encounter Rosario Amezquita CUSTOMER EXPERIENCE PROFESSIONAL Work Phone: [facility] Unsolicited Start: 05-26-2024 End: 05-26-2024 Clinisync Result Encounter Rosario Bia CUSTOMER EXPERIENCE PROFESSIONAL Work Phone: [facility] Unsolicited Start: 05-14-2024 End: 05-15-2024 Refill Rosario Bia CUSTOMER EXPERIENCE PROFESSIONAL Work Phone: [facility] Comment on above: Gastroesophageal ref lux disease without esophagitis Start: 05-10-2024 End: 05-10-2024 Office outpatient visit 15 minutes Rosario Claribelz CUSTOMER EXPERIENCE PROFESSIONAL Work Phone: [facility] Comment on above: Viral upper respirat ory tract infection (Primary Dx) Start: 05-10-2024 End: 05-10-2024 ambulatory ROSARIO AICHHOLZ Not Available Start: 05-10-2024 End: 05-10-2024 Bamboo flowsheet Rosario Aichholz CUSTOMER EXPERIENCE PROFESSIONAL Work Phone: [facility] Start: 05-10-2024 End: 05-10-2024 Bamboo flowsheet Rosario Aichholz CUSTOMER EXPERIENCE PROFESSIONAL Work Phone: [facility] Start: 04-05-2024 End: 04-05-2024 Bamboo flowsheet Rosario Aichholz CUSTOMER EXPERIENCE PROFESSIONAL Work Phone: [facility] Start: 04-05-2024 End: 04-05-2024 Bamboo flowsheet Rosario Aichholz CUSTOMER EXPERIENCE PROFESSIONAL Work Phone: [facility] Start: 04-05-2024 End: 04-05-2024 Office outpatient visit 25 minutes Rosario Aichholz CUSTOMER EXPERIENCE PROFESSIONAL Work Phone: [facility] Comment on above: Pain in both lower e xtremities (Primary Dx); Muscle cramps at night; Vitamin deficiency; Chronic bilateral low back pain without sciatica Start: 04-05-2024 End: 04-05-2024 ambulatory ROSARIO AICHHOLZ Not Available Start: 03-02-2024 End: 03-02-2024 Office outpatient visit 25 minutes Rosario Aichholz CUSTOMER EXPERIENCE PROFESSIONAL Work Phone: [facility] Comment on above: Anxiety (Primary Dx) ; Major depressive disorder, single episode, in full remission (CMS/HCC); Overweight (BMI 25.0-29.9); Osteoporosis, post-menopausal (CMS/[facility]); Gastroesophageal reflux disease without esophagitis; Heart murmur Start: 03-02-2024 End: 03-02-2024 ambulatory ROSARIO AICHHOLZ Not Available Start: 03-02-2024 End: 03-02-2024 Bamboo flowsheet Rosario Matiascharlenez CUSTOMER EXPERIENCE PROFESSIONAL Work Phone: [facility] Start: 03-02-2024 End: 03-02-2024 Bamboo flowsheet Rosario Aichholz CUSTOMER EXPERIENCE PROFESSIONAL Work Phone: [facility] Start: 02-13-2024 End: 02-14-2024 Refill Rosario Aichholz CUSTOMER EXPERIENCE PROFESSIONAL Work Phone: [facility] Comment on above: Chronic bilateral lo w back pain without sciatica Start: 01-17-2024 End: 01-18-2024 Refill Rosario Aichholz CUSTOMER EXPERIENCE PROFESSIONAL Work Phone: [facility] Comment on above: Chronic bilateral lo w back pain without sciatica Start: 01-03-2024 End: 01-04-2024 Refill Rosario Aichholz CUSTOMER EXPERIENCE PROFESSIONAL Work Phone: [facility] Comment on above: Anxiety Start: 06-11-2023 Bamboo flowsheet Rosario Aichholz CUSTOMER EXPERIENCE PROFESSIONAL Work Phone: [facility] Start: 06-11-2023 Bamboo flowsheet Rosario Aichholz CUSTOMER EXPERIENCE PROFESSIONAL Work Phone: [facility] Start: 06-11-2023 End: 06-11-2023 Patient encounter procedure Rosario Bia CUSTOMER EXPERIENCE PROFESSIONAL Work Phone: [facility] Comment on above: Medicare annual well [facility] visit, subsequent (Primary Dx); Benign hypertension (CMS/HCC); Osteoporosis, post-menopausal (CMS/HCC); Anxiety; Gastroesophageal reflux disease without esophagitis; Age related osteoporosis, unspecified pathological fracture presence (CMS/HCC); Chronic bilateral low back pain without sciatica; Mixed hyperlipidemia (CMS/HCC) Start: 07-21-2022 End: 07-22-2022 ambulatory [employer] ROSARIO BIA Facility:[facility] Start: 02-12-2022 End: 02-12-2022 ambulatory [employer]ER ROSARIO BARBERHGIOVANNA Facility:[facility] Start: 01-09-2022 End: 01-10-2022 ambulatory MONIQUE AMEZQUITA Facility:[facility] Start: 01-06-2022 End: 01-07-2022 ambulatory MONIQUE AMEZQUITA Facility:[facility] Start: 12-03-2021 End: 12-04-2021 ambulatory MONIQUE AMEZQUITA Facility:[facility] Start: 10-18-2021 End: 10-19-[address] JESSICA SAMPSON Facility:[facility] Start: 09-17-2021 End: 09-18-[address] ISAIAH ROJAS Facility:[facility] Start: 08-06-2021 End: 08-07-2021 ambulatory JOCELINE ORTEGA Facility:[facility] Start: 02-04-2017 Ambulatory NATASHA (CUSTOMER EXPERIENCE PROFESSIONAL) [facility] Start: 01-09-2017 End: 01-13-2017 Evaluation and management of inpatient [facility] Procedures Date Procedure Procedure Detail Performing Clinician Start: 01-09-2025 Radex foot complete minimum 3 views Dayton Ozuna DPM FACFAS Work Phone: Start: 12-20-2024 ALL BASIC METABOLIC PANEL Generic External Data Provider Start: 12-20-2024 ECG 12-LEAD Generic Ex ternal Data Provider Start: 11-16-2024 SEGMENTAL BLOOD PRESSURE Generic External Data Provider Start: 10-13-2024 XR FOOT LT MIN 3V Gener ic External Data Provider Start: 10-06-2024 XR FOOT RT MIN 3V Gener ic External Data Provider Start: 05-26-2024 XR DEXA AXIAL SKELETON Rosario Bia CUSTOMER EXPERIENCE PROFESSIONAL Work Phone: Start: 05-10-2024 Iaadiadoo influenza Lis catherine Barbernicolettegiovanna CUSTOMER EXPERIENCE PROFESSIONAL Work Phone: Start: 08-21-2023 Mammography Rosario Barbernicolettenicolette olz CUSTOMER EXPERIENCE PROFESSIONAL Work Phone: Start: 07-21-2022 Mammography Rosario Aichh olz CUSTOMER EXPERIENCE PROFESSIONAL Work Phone: Start: 10-20-2021 Antibody screen Comment on above: Order Comment: Speci men Type: BLOOD SPECIMEN Ordering Facility: [facility] Address: [address] [place] [address] [place] [address] Performed By: #### T SCR #### [facility] [place] [id number] [facility] Plan of Treatment Date Care Activity Detail Author Start: 11-01-2025 End: 11-01-2025 Patient encounter procedure 11/01/2025 10:30 AM EDT Office Visit [facility] [address] [place] [phone] Rosario Amezquita NP [address] [place] [phone] [facility] Start: 10-26-2025 Medicare Annual Wellness (AWV) Medicare Annual Wellness (AWV) [facility] Start: 05-02-2025 End: 05-02-2025 Patient encounter procedure 05/02/2025 10:30 AM EST Office Visit [facility] [address] [place] [phone] Rosario Amezquita NP [address] [place] [phone] [facility] Start: 12-26-2024 Influenza vaccination Influenza Vacc ine (#1) [facility] Start: 10-26-2024 End: 12-27-2025 MG Breast - bilateral Screening Bilateral screening mammogram Imaging Routine Encounter for screening mammogram for malignant neoplasm of breast Expected: 10/26/2024 (Approximate), Expires: 12/27/2025 [facility] Work Phone: Comment on above: Expected: 10/26/2024 (Approximate), Expires: 12/27/2025 Start: 10-26-2024 End: 10-26-2024 Patient encounter procedure 10/26/2024 10:30 AM EDT Office Visit [facility] [address] [place] [phone] Rosario Amezquita NP [address] [place] [phone] [facility] Start: 08-20-2024 Screening for malignant neoplasm of breast Mammogram [facility] Healthcare Start: 06-16-2024 End: 06-16-2024 Patient encounter procedure 06/16/2024 10:30 AM EST Office Visit [facility] [address] [place] [address] Rosario Amezquita, ANSELMO [address] [place] [phone] [facility] Start: 06-11-2024 Medicare Annual Wellness (AWV) Medicare Annual Wellness (AWV) [facility] Healthcare Start: 05-10-2024 End: 05-10-2024 Patient encounter procedure 05/10/2024 4:00 PM EST Office Visit [facility] [address] [place] [address] Rosario Amezquita, ANSELMO [address] [place] [phone] Arrived [facility] Comment on above: Arrived Start: 05-09-2024 End: 05-09-2024 Patient encounter procedure 05/09/2024 1:40 PM EST Office Visit [facility] [address] [place] [address] Rosario Amezquita, CUSTOMER EXPERIENCE PROFESSIONAL [address] [place] [phone] [facility] Start: 04-05-2024 End: 04-05-2025 Cobalamin (Vitamin B12) [Mass/volume] in Serum or Plasma Vitamin B12 Lab Routine Vitamin deficiency Expected: 04/05/2024 (Approximate), Expires: 04/05/2025 [facility] Work Phone: Comment on above: Expected: 04/05/2024 (Approximate), Expires: 04/05/2025 Start: 04-05-2024 End: 04-05-2025 Creatine kinase [Enzymatic activity/volume] in Serum or Plasma CK Lab Routine Muscle cramps at night Expected: 04/05/2024 (Approximate), Expires: 04/05/2025 [facility] Healthcare Comment on above: Expected: 04/05/2024 (Approximate), Expires: 04/05/2025 Start: 04-05-2024 End: 04-05-2025 Magnesium [Mass/volume] in Serum or Plasma Magnesium Lab Routine Muscle cramps at night Expected: 04/05/2024 (Approximate), Expires: 04/05/2025 [facility] Comment on above: Expected: 04/05/2024 (Approximate), Expires: 04/05/2025 Start: 04-05-2024 End: 04-05-2024 Patient encounter procedure 04/05/2024 1:20 PM EST Office Visit [facility] [address] [place] [address] Rosario Amezquita, CUSTOMER EXPERIENCE PROFESSIONAL [address] [place] [address] Arrived [facility] Comment on above: Arrived Start: 03-02-2024 End: 03-02-2024 Patient encounter procedure 03/02/2024 2:20 PM EST Office Visit [facility] [address] [place] [address] Rosario Amezquita, CUSTOMER EXPERIENCE PROFESSIONAL [address] [place] [address] Overweight (BMI 25.0-29.9) (Primary Dx); Major depressive disorder, single episode, in full remission (CMS/HCC); Anxiety; Osteoporosis, post-menopausal (CMS/HCC); Gastroesophageal reflux disease without esophagitis [facility] Comment on above: Overweight (BMI 25.0 -29.9) (Primary Dx); Major depressive disorder, single episode, in full remission (CMS/HCC); Anxiety; Osteoporosis, post-menopausal (CMS/HCC); Gastroesophageal reflux disease without esophagitis Start: 02-29-2024 End: 02-29-2024 Patient encounter procedure 02/29/2024 1:40 PM EST Office Visit [facility] [address] [place] [address] Rosario Amezquita, CUSTOMER EXPERIENCE PROFESSIONAL [address] [place] [phone] [facility] Start: 02-09-2024 End: 02-09-2024 Patient encounter procedure 02/09/2024 1:00 PM EDT Office Visit [facility] [address] [place] [address] Rosario Amezquita, CUSTOMER EXPERIENCE PROFESSIONAL [address] [place] [phone] [facility] Start: 12-27-2023 Influenza vaccination Influenza Vacc ine (#1) [facility] Start: 10-12-2023 End: 10-12-2023 Patient encounter procedure 10/12/2023 2:00 PM EDT Office Visit [facility] [address] [place] [address] Rosario Amezquita, CUSTOMER EXPERIENCE PROFESSIONAL [address] [place] [phone] [facility] Start: 07-22-2023 Screening for malignant neoplasm of breast Mammogram [facility] Start: 06-11-2023 End: 06-11-2023 Patient encounter procedure 06/11/2023 1:20 PM EST Office Visit [facility] [address] [place] [address] Rosario Amezquita, CUSTOMER EXPERIENCE PROFESSIONAL [address] [place] [phone] Arrived [facility] Comment on above: Arrived Start: 1955 Medicare Annual Wellness (AWV) Medicare Annual Wellness (AWV) [facility] Immunizations Immunization Date Immunization Notes Care Provider [place] 02-03-2024 influenza, high dose seasonal, preservative-free Rosario Aichholz CUSTOMER EXPERIENCE PROFESSIONAL Work Phone: [facility] 02-03-2024 Pneumococcal Conjuga te PCV 20 Rosario Aichholz CUSTOMER EXPERIENCE PROFESSIONAL Work Phone: [facility] 02-03-2024 influenza virus vacc ine, unspecified formulation Rosario Aichholz CUSTOMER EXPERIENCE PROFESSIONAL Work Phone: [facility] 03-18-2023 Influenza, Seasonal, Quadrivalent, Adjuvanted Rosario Aichholz CUSTOMER EXPERIENCE PROFESSIONAL Work Phone: [facility] 03-18-2023 influenza virus vacc ine, unspecified formulation Rosario Aichholz CUSTOMER EXPERIENCE PROFESSIONAL Work Phone: [facility] 07-28-2022 zoster vaccine recombinant L donya Aichholz CUSTOMER EXPERIENCE PROFESSIONAL Work Phone: [facility] 05-28-2022 zoster vaccine recombinant L donya Aichholz CUSTOMER EXPERIENCE PROFESSIONAL Work Phone: [facility] 03-25-2021 influenza, injectabl e, quadrivalent, preservative free Rosario Aichholz CUSTOMER EXPERIENCE PROFESSIONAL Work Phone: [facility] 02-03-2017 influenza virus vacc ine, unspecified formulation Rosario Aichholz CUSTOMER EXPERIENCE PROFESSIONAL Work Phone: [facility] 04-01-2013 influenza, seasonal, injectable Rosario Aichholz CUSTOMER EXPERIENCE PROFESSIONAL Work Phone: [facility] 01-25-2013 influenza, seasonal, injectable Rosario Aichholz CUSTOMER EXPERIENCE PROFESSIONAL Work Phone: [facility] 01-25-2013 pneumococcal polysaccharide vaccine, 23 valent Rosario Aichholz CUSTOMER EXPERIENCE PROFESSIONAL Work Phone: [facility] 01-29-2012 influenza, seasonal, injectable Rosario Aichholz CUSTOMER EXPERIENCE PROFESSIONAL Work Phone: [facility] 01-29-2012 pneumococcal polysaccharide vaccine, 23 valent Rosario Amezquita NP Work Phone: [facility] Payers Date Payer Category Payer Medicare [employer]M MEDICARE ADVANTAGE [facility] MEDICARE ADVANTAGE [id number] 2023-Present [address] [place] [address] [id number] 2023 Medicare (Managed Care) [facility] [id number] 2023 Medicare [id number] 1959 Medicaid [id number] 1959 Medicare [id number] 1959 Private Health Insurance CLI [id number] 1955 Unknown [id number] [id number]. 593 1955 Unknown [id number] .[id number]. 593 1955 Unknown [id number] 2.16.840.1.642331.3.579.2. 593 1955 Unknown [id number] 2.16.840.1.428879.3.579.2. 593 1955 Unknown [id number] 2.16.840.1.067916.3.579.2. 593 1955 Unknown [id number] 2.16.840.1.974517.3.579.2. 593 1955 Unknown [id number] 2.16.840.1.940127.3.579.2. 593 1955 Unknown [id number] 2.16.840.1.155319.3.579.2. 593 1955 Unknown [id number] 2.16.840.1.642130.3.579.2. 1259 1955 Unknown [id number] 2.16.840.1.742460.3.579.2. 1259 1955 Unknown [id number] 2.16.840.1.849890.3.579.2. 1259 1955 Unknown [id number] 2.16.840.1.978170.3.579.2. 1259 1955 Unknown [id number] 2.16.840.1.424597.3.579.2. 1259 1955 Unknown [id number] 2.16.840.1.548982.3.579.2. 1259 Social History Date Type Detail Facility Start: 04-29-2023 Tobacco smoking status NHIS Ex-smoke r [facility] History of tobacco use Current smoker [facility] History of tobacco use Cigarette Smoker [facility] Start: 04-29-2023 Tobacco use and exposure Smoke less tobacco non-user [facility] Start: 06-11-2023 End: 01-09-2025 Alcohol intake Lifetime non-drinker (finding) [facility] [...] - these days [OSQ] To some extent [facility] (I/We) worried wheth er (my/our) food would run out before (I/we) got money to buy more. Never true [facility] Start: 1955 Sex Assigned At Not on file N [facility] Functional Status Date Assessment Result Facility 10-26-2024 Patient Health Quest ionnaire 2 item (PHQ-2) [Reported] [facility] Clinical Notes 09-17-2021 to 01-09-2025 Telephone Encounter - JC Guzman - 01/09/2025 10:26 PM EDTTelephone Encounter - JC Guzman - 01/09/2025 10:26 PM EDTMJC Berry - 01/09/2025 11:00 AM EDT Note Date & Type Note Facility 01-09-2025 Telephone encounter Note Phone #: [phone] Insurance: Payor: [employer] MEDICARE ADVANTAGE / Plan: [employer] MEDICARE ADVANTAGE / Product Type: *No Product type* / Preferred Date/Time: First Available [x] OBINNA [] Patient Name: Sofie Adrian : 1955 Surgeon: Dr. Dayton Ozuna [x] Dr. Bret Ozuna [] Location[place] [facility] [x] [facility] [place] [facility] [] Procedure(s): De-rotational arthroplasty left 3rd digit 2. Naresh osteotomy left 3rd metatarsal CPT Code(s): 63797, 07501 Diagnosis: ICD-10-CM 1. Hammer toe of left foot M20.42 2. Metatarsal deformity, left M21.962 Procedure Time: 30 min [x] 1.5 Hour [] 2 Hours [] Anesthesia: MAC [x] General [] Local [] Popliteal Block [] Position: Supine [x] Prone [] Lateral [] Special Requests: C-arm [] Pulse Lavage [] VersaJet [] Special Equipment: Arthrex plate /screws [x] Internal brace [] Arthrex FiberTak [] Biopro Staple [] Biopro Marko Impant [] Other [] Pre-op Orders: Abx 30 min Prior: 2g Ancef [x] Clindamycin 600mg [] Vancomycin 1 g [] Post-op WB: Partial WB [x] Non-WB [] Crutches [] Walker [] Knee Scooter [] PCP Clearance: Dayton Amaya MD Other Clearance: Cardiology [] Rheumatology [] Other [x] Patient it was on Suboxone we will need clearance from her pain management physician no narcotics from anesthesia popliteal block [facility] 01-09-2025 Miscellaneous Notes Phone #: [phone] Insurance: Payor: [employer]M MEDICARE ADVANTAGE / Plan: AN[employer]M MEDICARE ADVANTAGE / Product Type: *No Product type* / Preferred Date/Time: First Available [x] OBINNA [] Patient Name: Sofie Adrian : 1955 Surgeon: Dr. Dayton Ozuna [x] Dr. Bret Ozuna [] Location: [facility] [x] [facility] [] [facility] [] Procedure(s): De-rotational arthroplasty left 3rd digit 2. Naresh osteotomy left 3rd metatarsal CPT Code(s): 23627, 25755 Diagnosis: ICD-10-CM 1. Hammer toe of left foot M20.42 2. Metatarsal deformity, left M21.962 Procedure Time: 30 min [x] 1.5 Hour [] 2 Hours [] Anesthesia: MAC [x] General [] Local [] Popliteal Block [] Position: Supine [x] Prone [] Lateral [] Special Requests: C-arm [] Pulse Lavage [] VersaJet [] Special Equipment: Arthrex plate /screws [x] Internal brace [] Arthrex FiberTak [] Biopro Staple [] Biopro Marko Impant [] Other [] Pre-op Orders: Abx 30 min Prior: 2g Ancef [x] Clindamycin 600mg [] Vancomycin 1 g [] Post-op WB: Partial WB [x] Non-WB [] Crutches [] Walker [] Knee Scooter [] PCP Clearance: Dayton Amaya MD Other Clearance: Cardiology [] Rheumatology [] Other [x] Patient it was on Suboxone we will need clearance from her pain management physician no narcotics from anesthesia popliteal block documented in this encounter [facility] 01-09-2025 History of Present illness Narrative Images from the original note were not included. Patient: Sofie Adrian : 1955 PCP: Dayton Amaya MD SUBJECTIVE This is a 69 y.o. female that presents today for a chief complaint of pain about the left 3rd digit and 3rd metatarsal region. She had a previous 1st metatarsophalangeal joint fusion performed by Dr. Emerson bilaterally. The 3rd digit is in a severe contracted position and has been previously surgically corrected. It was quite painful and hurts when she walks performs activities of daily living. She is also complaining of the large swelling/ mass noted at the interphalangeal joint of the right great toe. Hurts in shoes when performing activities of daily living. On a scale of 1-10 the patient rates the pain as an 8 with 10 being the worst pain of the lives. She was attempted wider shoes pads anti-inflammatory medication shoe gear modifications to no avail. Allergies: Allergies Allergen Reactions Sulfacetamide GI intolerance Penicillins Rash, Unknown and GI intolerance Sulfa Antibiotics Other, Rash and Unknown Past Medical History: Active Ambulatory Problems Diagnosis Date Noted Chronic bilateral low back pain without sciatica 03/30/2023 Gastroesophageal reflux disease without esophagitis 05/23/2023 Anxiety 06/02/2023 Hyperlipidemia 06/03/2023 Encounter for screening mammogram for malignant neoplasm of breast 06/03/2023 Diverticulosis of colon without diverticulitis 06/11/2023 Pain in joint, multiple sites 06/11/2023 Osteoporosis, post-menopausal 06/11/2023 Medicare annual wellness visit, subsequent 06/11/2023 Hx of opioid abuse ([facility]) 10/12/2023 Overweight (BMI 25.0-29.9) 10/12/2023 Major depressive disorder, single episode, in full remission 02/29/2024 [place] (iron deficiency anemia) 02/29/2024 Heart murmur 03/02/2024 Pain in both lower extremities 04/05/2024 Muscle cramps at night 04/05/2024 Vitamin deficiency 04/05/2024 Resolved Ambulatory Problems Diagnosis Date Noted URI (upper respiratory infection) 04/29/2023 COVID 04/29/2023 Benign hypertension 06/03/2023 Gout, unspecified 06/03/2023 Scabies 08/19/2023 Primary hypertension 02/29/2024 Viral upper respiratory tract infection 05/10/2024 Past Medical History: Diagnosis Date Alcohol abuse, in remission Back pain Opioid abuse ([facility]) Medications: Current Outpatient Medications: alendronate (Fosamax) 70 MG tablet, Take 1 tablet (70 mg) by mouth every 7 (seven) days Take with a full glass of water, remain upright for at least 30 mins, Disp: 12 tablet, Rfl: 1 atorvastatin (Lipitor) 10 MG tablet, Take 1 tablet (10 mg) by mouth at bedtime, Disp: 90 tablet, Rfl: 1 Buprenorphine HCl-Naloxone HCl (Suboxone) 8-2 MG SL film, Place 0.25 Film under the tongue, Disp: , Rfl: Calcium 500 + D3 500-15 MG-MCG tablet, TAKE 1 TABLET BY MOUTH IN THE MORNING AND BEFORE BEDTIME, Disp: , Rfl: cyclobenzaprine (Flexeril) 10 MG tablet, Take 1 tablet (10 mg) by mouth every 12 (twelve) hours if needed for muscle spasms, Disp: 180 tablet, Rfl: 1 FLUoxetine (PROzac) 10 MG capsule, Take 1 capsule (10 mg) by mouth Daily, Disp: 90 capsule, Rfl: 1 meloxicam (Mobic) 15 MG tablet, Take 1 tablet (15 mg) by mouth in the morning., Disp: 90 tablet, Rfl: 1 omeprazole (PriLOSEC) [address] capsule, Take 1 capsule (40 mg) by mouth in the morning. Take before meals., Disp: 90 capsule, Rfl: 1 ROS: Constitutional: Denies fever, chills, nausea, vomiting GI: Denies abdominal pain, cramping, loose stool, gastric ulcers Musculoskeletal: Denies low back pain, knee pain, systemic arthritis Neurologic: Denies burning, tingling, transient paralysis OBJECTIVE Physical examination: Vascular: Dorsalis pedis posterior tibial pulses are palpable bilateral, no edema noted Neuro: [place]-Favian 5.07 monofilament intact, vibratory sensation intact Derm: All hair growth noted skin temperature is warm to cool knees to toes Soft tissue mass/ bursa noted at the IPJ of the right great toe appears to be freely mobile within the subcutaneous tissue Musculoskeletal: Muscle strength +5/5 all intrinsic and extrinsic muscles tested Fusion of bilateral great toe joints joints appear to be somewhat rectus. There is an adductovarus left 3rd digit previously surgically corrected of the large dorsal exostosis noted at the PIPJ joint quite painful upon palpation toe is reducible. She is pain with range of motion of the 3rd metatarsophalangeal joint and pain at the 3rd metatarsal head region. XRAY: AP/MO/LAT: pedal radiographs demonstrate intact cortical margins and anatomic alignment. Joint spaces are maintained throughout the midfoot forefoot and hindfoot without evidence of acute fracture dislocation or arthropathy fusion of the left great toe fixation appears to be in alignment. Still able to visualize the joint space. Left 3rd digit has been surgically corrected appears to be a arthroplasty with a regrowth of bone in that region toe is an adductovarus position left 3rd there appears to be contracture of the 3rd metatarsophalangeal joint US: DIAGNOSTIC ULTRASOUND 12 MEGAHERTZ LINEAR PROBE REVEALED: hypoechoic capsulitis/ bursitis about the right 3rd metatarsophalangeal joint capsule. ASSESSMENT 1. Hammer toe of left foot 2. Left foot pain 3. Metatarsal deformity, left 4. Other enthesopathy of right foot and ankle 5. Hammer toe of right foot PLAN Educated the patient on my clinical and radiographic findings. I discussed the fusion of bilateral great toes as well as the bursa of the right great toe IPJ. Has attempted conservative care recommended a cortisone injection to the PIPJ of the right great toeThe patient was injected with 1 cc of 2% lidocaine plain and 1 cc of Kenalog 10 the ultrasonic guidance. A 12 megahertz linear probe was used for the injection in order to ensure exact placement and to avoid injection into underlying subcutaneous tissue. Recommended wider toe box shoes. I discussed the position of the left 3rd digit as well as contracture of the left 3rd metatarsophalangeal joint I discussed performing a derotational arthroplasty revision of 3rd digit with Naresh osteotomy of the 3rd metatarsal The patient was educated on the pre, tootie, postoperative course of the procedure in great detail. We discussed further conservative therapies which the patient has attempted and has failed. I discussed the surgical procedure in great detail including the risks and possible complications. We discussed the following complications in great detail including but not limited to: Pain, infection, prolonged swelling, numbness, tingling, burning, nonhealing wound, nonunion, malunion, chronic pain, development of complex regional pain syndrome, development of deep venous thrombosis. Patient is currently on Subutex and we will require clearance by her pain management physician prior to surgery most likely recommend popliteal block with no narcotics. Dayton Ozuna DPM FACFAS documented in this encounter [facility] 10-26-2024 History of Present illness Narrative Pt [...] in the last year: no Specialist: Podiatry [facility] HCPOA/Living Will: no Concerns: none SUBJECTIVE: MEDICATIONS: [...] Gout, unspecified 06/03/2023 Hyperlipidemia 06/03/2023 Opioid abuse ([facility]) Osteoporosis, post-menopausal 06/11/2023 Pain in joint, multiple [...] yearly and prn Hx of opioid abuse ([facility]) Took suboxone in the past, no recent [...] fluoxetine Associated Problem(s): Hx of opioid abuse ([facility]) Took suboxone in the past, no recent [...] yearly and prn documented in this encounter [facility] 06-28-2024 Telephone encounter Note Reschedule AWV LA [facility] 06-28-2024 Miscellaneous Notes Reschedule AWV LA documented in this encounter [facility] 05-10-2024 History of Present illness Narrative Associated Problem(s): Viral upper respiratory tract infection Neg for flu Offered to test for COVID at [facility] or send out health trax, she [...] remission Anxiety 06/02/2023 Back pain Benign hypertension ([facility]) 06/03/2023 Chronic bilateral low back pain without sciatica 03/30/2023 Diverticulosis of colon without diverticulitis 06/11/2023 Gout, unspecified 06/03/2023 Hyperlipidemia ([facility]/HCC) 06/03/2023 Opioid abuse ([facility]) Osteoporosis, post-menopausal ([facility]) 06/11/2023 Pain in joint, multiple sites 06/11/2023 [...] flu Offered to test for COVID at [facility] or send out health trax, she declines Recommend fluids, rest, tylenol/motrin prn Warm salt water gargles, and throat lozenges Does not work til Thursday Will call if worsens, advised viruses last 7-10 days, worse by day 5 then better Relevant Orders POCT Influenza A/B documented in this encounter [facility] 05-10-2024 Instructions Rosario Amezquita NP - 05/10/2024 4:00 PM EST Fluids, rest, tylenol/motrin prn Throat lozenges, warm salt water gargles documented in this encounter [facility] 04-05-2024 History of Present illness Narrative [...] unspecified 06/03/2023 Hyperlipidemia (CMS/HCC) 06/03/2023 Opioid abuse ([facility]) Osteoporosis, post-menopausal ([facility]/HCC) 06/11/2023 Pain in joint, multiple sites 06/11/2023 [...] Orders Vitamin B12 documented in this encounter [facility] 04-05-2024 Instructions Rosario Amezquita NP - 04/05/2024 1:20 PM EST Check labs, if they are ok we will order an EMG to assess nerve function documented in this encounter [facility] 03-02-2024 History of Present illness Narrative [...] working with diet changes and worked at [employer] increase activity. No abd pain, no NV, no [...] remission Anxiety 06/02/2023 Back pain Benign hypertension ([facility]/HCC) 06/03/2023 Chronic bilateral low back pain without sciatica 03/30/2023 Diverticulosis of colon without diverticulitis 06/11/2023 Gout, unspecified 06/03/2023 Hyperlipidemia ([facility]) 06/03/2023 Opioid abuse ([facility]) Osteoporosis, post-menopausal ([facility]) 06/11/2023 Pain in joint, multiple sites 06/11/2023 [...] HOB if possible documented in this encounter [facility] 03-02-2024 Instructions Rosario Amezquita NP - 03/02/2024 2:20 PM EST Lab work Bone density scan: will send to [facility] documented in this encounter [facility] 06-11-2023 History of Present illness Narrative [...] unspecified 06/03/2023 Hyperlipidemia (CMS/HCC) 06/03/2023 Opioid abuse ([facility]) Osteoporosis, post-menopausal ([facility]) 06/11/2023 Pain in joint, multiple sites 06/11/2023 [...] 70 MG tablet documented in this encounter [facility] 10-22-2021 Note HNO ID: [id number] Author: Koko Burris MD Service: General Surgery Author Type: Resident Type: Progress Notes Filed: 10/22/2021 5:05 PM Note Text: Documentation Query Based on your medical judgment of the clinical indicators outlined below, please clarify the condition: (Please type X next to your response and sign) [facility] Dr. Burris, Clinical Indicators: Lab Results [...] your independent professional judgment. Thank you, Annabella [facility] 10-22-2021 Note HNO ID: [id number] Author: Joceline Liang MD Service: General Surgery [...] Acute Care Surgery (ACS) Day Floor Pager: [phone] Acute Care Surgery (ACS) Day Consults Pager: [phone] On nights (6 pm to 6 am) and on Weekends/Holidays, please page the on-call pager: [phone] ___ Subjective: See above Physical Exam: BP [...] Date 10/21/21 07 - 10/22/21 0659 10/22/21 0700 - 10/23/21 0659 Shift 4286-5198 8001-4505 0585-5376 24 Hour Total 4320-9077 6798-5810 3986-8675 24 Hour Total INTAKE PO 120 240 [...] sublingual film (SUBOXONE) 2 Film SUBLINGUAL DAILY [place] 05273-27-2022 Note HNO ID: [id number] Author: Merline Sanchez RN Service: Care Management Author Type: Registered Nurse Type: Care Mgt Initial Assessment Filed: 10/21/2021 11:35 AM Note Text: CARE MANAGEMENT: ASSESSMENT AND DISCHARGE PLAN SERVICE DATE: October 21, 2021 SERVICE TIME: 11:29 AM PRIMARY CARE PHYSICIAN: Rosario Amezquita CNP, [employer]PAREL EMBROIDERY DIGITIZER Primary Contact: Extended Emergency Contact Information Primary Emergency Contact: Maude Adrian Relation: Daughter Secondary Emergency Contact: cecile adam [employer] Relation: Spouse ADMISSION STATUS: Inpatient Insurance Provider: N/A NEEDS PRIOR TO DISCHARGE Needs Prior to Discharge: To Be Determined;Procedure Procedure Needed: SBFT today POTENTIAL TRANSITION PLANS To Be Determined Patient's perception of need for this admission: SBO ADVANCE DIRECTIVES Current Advance Directive: None Team Leader/Research Psychologist Attempted to Assist with AD Completion: Yes [...] External Provider Provider Name: Rosario Amezquita CNP [phone] Does the patient have transportation upon discharge?: [...] Completely I feel financially burdened by my [id number] expenses for my prescription medication:: 0 - Disagree Completely Risk Score: 0 Patient is categorized as: Low risk < 2 FUNCTIONAL How do you manage to accomplish the following: Independent: Ambulation;Bathe/Shower;Dress;Mary Jane ls/Meal Prep;Going to the bathroom;Medication Management;Transportation to appointments/community Services/Needs//Equipment Does Patient Currently Receive Any Community Services or Home Care?: None Equipment Prior to Admission: None Has the Patient Been in a Jail Facility in the Past 30 days?: No No medical discharge barriers identified at this time. No social discharge barriers identified at this time. No behavioral/cognitive discharge barriers identified at this time. No functional discharge barriers identified at this time. FREEDOM OF CHOICE EXPLAINED: [place] of Choice Given: No Reason Not Given: [...] 21, 2021 TIME: 11:29 AM CONTACT #: [phone] [facility] 10-21-2021 Note HNO ID: [id number] Author: Koko Burris MD Service: General Surgery [...] Acute Care Surgery (ACS) Day Floor Pager: [phone] Acute Care Surgery (ACS) Day Consults Pager: [phone] On nights (6 pm to 6 am) and on Weekends/Holidays, please page the on-call pager: [phone] ___ Subjective: See above Physical Exam: BP [...] 10/20/21699 - 10/21/2165810/21/21699 - 10/22/21 0659 Shift 3391-5664 7979-9960 8455-9786 24 Hour Total 6900-5090 4088-7139 9158-0939 24 Hour Total INTAKE IV 850 420 289 3388 Volume (mL) (NaCl 0.9% iv flush bag) 600 600 Volume (mL) (potassium chloride iv piggyback 20 mEq/100 mL) 200 100 300 Volume (mL) (magnesium sulfate 2 g in sterile water 50 ml) 50 50 Volume (mL) (dextrose 5% in NaCl 0.45% iv infusion) 724 460 5492 Shift Total 850 650 971 8808 OUTPUT Urine 400 764 410 1974 Void (ml) 400 337 399 0021 Tubes 75 25 100 Output (GI Feed 10/19/21 1700 Admission to Hospital Gastric Right Naris) 75 25 100 Shift Total 475 053 040 0153 Weight (kg) 56.5 56.5 56.5 56.5 56.5 [...] sublingual film (SUBOXONE) 2 Film SUBLINGUAL DAILY [facility] 10-20-2021 Note HNO ID: [id number] Author: Leighann Rodriguez RN Service: Nursing Author [...] This note was completed by: Leighann Rodriguez [facility] 10-20-2021 Note HNO ID: [id number] Author: Koko Burris MD Service: General Surgery [...] Acute Care Surgery (ACS) Day Floor Pager: [phone] Acute Care Surgery (ACS) Day Consults Pager: [phone] On nights (6 pm to 6 am) and on Weekends/Holidays, please page the on-call pager: [phone] ___ Subjective: See above Physical Exam: BP [...] 1.1 Intake and Output: Date 10/19/21699 - 10/20/21 0610/20/21699 - 10/21/21 0659 Shift 6263-4475 9694-9647 9327-3750 24 Hour Total 1085-4032 0388-8050 7494-8157 24 Hour Total INTAKE IV 300 600 900 Volume (mL) (dextrose 5% in NaCl 0.45% iv infusion) 300 600 900 Shift Total 300 600 900 OUTPUT Urine 250 450 700 Void (ml) 250 450 700 Tubes 350 150 500 Output (GI Feed 06/25/22 1700 Admission to Hospital Gastric Right Naris) 350 150 500 Shift Total 171 684 0379 Weight (kg) 56.5 56.5 56.5 56.5 56.5 [...] tab(s) (PROTONIX) 40 mg ORAL BID AC (599/1599) - ondansetron (PF) 4 mg injection (ZOFRAN) [...] injection 5,000 Units SUBCUTANEOUS q 12 H [facility] 09-17-2021 Note PROCEDURE: XR FOOT L [...] by: ISAIAH ROJAS Date: 2021-09-17 11:44 [facility] Evaluation note Diagnosis Medicare annual wellness visit, [...] low back pain without sciatica Mixed hyperlipidemia ([facility]/HCC) Mixed hyperlipidemia Chronic bilateral low back pain without sciatica- Primary Anxiety Anxiety state, unspecified Anxiety- Primary Anxiety state, unspecified Hx of opioid abuse ([facility]/HCC) Chronic bilateral low back pain without sciatica Overweight (BMI 25.0-29.9) Overweight Anxiety- Primary Anxiety state, unspecified Major depressive disorder, single episode, in full remission (CMS/HCC) Major depressive disorder, single episode in full remission Overweight (BMI 25.0-29.9) Overweight Osteoporosis, post-menopausal (CMS/HCC) Senile osteoporosis Gastroesophageal reflux disease without esophagitis Esophageal reflux Heart murmur Undiagnosed cardiac murmurs documented in this encounter [facility]* Diagnosis Medicare annual wellness visit, subsequent- Primary Benign hypertension (CMS/HCC) Essential hypertension, benign Osteoporosis, post-menopausal (CMS/HCC) Senile osteoporosis Anxiety Anxiety state, unspecified Gastroesophageal reflux disease without esophagitis Esophageal reflux Age related osteoporosis, unspecified pathological fracture presence ([facility]) Chronic bilateral low back pain without sciatica Mixed hyperlipidemia ([facility]) Mixed hyperlipidemia Chronic bilateral low back pain without sciatica- Primary Anxiety Anxiety state, unspecified Anxiety- Primary Anxiety state, unspecified Hx of opioid abuse ([facility]) Chronic bilateral low back pain without sciatica Overweight (BMI 25.0-29.9) Overweight Anxiety- Primary Anxiety state, unspecified Major depressive disorder, single episode, in full remission ([facility]) Major depressive disorder, single episode in full remission Overweight (BMI 25.0-29.9) Overweight Osteoporosis, post-menopausal ([facility]) Senile osteoporosis Gastroesophageal reflux disease without esophagitis [...] annual wellness visit, subsequent- Primary Benign hypertension ([facility]) Essential hypertension, benign Osteoporosis, post-menopausal [facility] Senile osteoporosis Anxiety Anxiety state, unspecified Gastroesophageal reflux disease without esophagitis Esophageal reflux Age related osteoporosis, unspecified pathological fracture presence [facility] Chronic bilateral low back pain without sciatica Mixed hyperlipidemia ([facility]) Mixed hyperlipidemia Chronic bilateral low back pain without sciatica- Primary Anxiety Anxiety state, unspecified Anxiety- Primary Anxiety state, unspecified Hx of opioid abuse ([facility]) Chronic bilateral low back pain without sciatica Overweight (BMI 25.0-29.9) Overweight Anxiety- Primary Anxiety state, unspecified Major depressive disorder, single episode, in full remission ([facility]) Major depressive disorder, single episode in full remission Overweight (BMI 25.0-29.9) Overweight Osteoporosis, post-menopausal ([facility]) Senile osteoporosis Gastroesophageal reflux disease without esophagitis [...] annual wellness visit, subsequent- Primary Benign hypertension ([facility]) Essential hypertension, benign Osteoporosis, post-menopausal [facility] Senile osteoporosis Anxiety Anxiety state, unspecified Gastroesophageal reflux disease without esophagitis Esophageal reflux Age related osteoporosis, unspecified pathological fracture presence [facility] Chronic bilateral low back pain without sciatica Mixed hyperlipidemia [facility] Mixed hyperlipidemia Chronic bilateral low back pain without sciatica- Primary Anxiety Anxiety state, unspecified Anxiety- Primary Anxiety state, unspecified Hx of opioid abuse [facility] Chronic bilateral low back pain without sciatica Overweight (BMI 25.0-29.9) Overweight Anxiety- Primary Anxiety state, unspecified Major depressive disorder, single episode, in full remission [facility] Major depressive disorder, single episode in full remission Overweight (BMI 25.0-29.9) Overweight Osteoporosis, post-menopausal [facility] Senile osteoporosis Gastroesophageal reflux disease without esophagitis Esophageal reflux Heart murmur Undiagnosed cardiac murmurs Pain in both lower extremities- Primary Muscle cramps at night Cramp of limb Vitamin deficiency Unspecified vitamin deficiency Chronic bilateral low back pain without sciatica Viral upper respiratory tract infection- Primary Acute upper respiratory infections of unspecified site Gastroesophageal reflux disease without esophagitis Esophageal reflux documented in this encounter [facility] note* Diagnosis Medicare annual wellness visit, subsequent- Primary Benign hypertension ([facility]) Essential hypertension, benign Osteoporosis, post-menopausal [facility] Senile osteoporosis Anxiety Anxiety state, unspecified Gastroesophageal reflux disease without esophagitis Esophageal reflux Age related osteoporosis, unspecified pathological fracture presence [facility] Chronic bilateral low back pain without sciatica Mixed hyperlipidemia [facility] Mixed hyperlipidemia Chronic bilateral low back pain without sciatica- Primary Anxiety Anxiety state, unspecified Anxiety- Primary Anxiety state, unspecified Hx of opioid abuse ([facility] Chronic bilateral low back pain without sciatica Overweight (BMI 25.0-29.9) Overweight Anxiety- Primary Anxiety state, unspecified Major depressive disorder, single episode, in full remission [facility] Major depressive disorder, single episode in full remission Overweight (BMI 25.0-29.9) Overweight Osteoporosis, post-menopausal ([facility]) Senile osteoporosis Gastroesophageal reflux disease without esophagitis Esophageal reflux Heart murmur Undiagnosed cardiac murmurs Pain in both lower extremities- Primary Muscle cramps at night Cramp of limb Vitamin deficiency Unspecified vitamin deficiency Chronic bilateral low back pain without sciatica Viral upper respiratory tract infection- Primary Acute upper respiratory infections of unspecified site Age-related osteoporosis without current pathological fracture ([facility]) documented in this encounter [facility] HealthcareEvaluation note* Diagnosis Medicare annual wellness visit, subsequent- Primary Benign hypertension ([facility]) Essential hypertension, benign Osteoporosis, post-menopausal ([facility]) Senile osteoporosis Anxiety Anxiety state, unspecified Gastroesophageal reflux disease without esophagitis Esophageal reflux Age related osteoporosis, unspecified pathological fracture presence ([facility]) Chronic bilateral low back pain without sciatica Mixed hyperlipidemia ([facility]) Mixed hyperlipidemia Chronic bilateral low back pain without sciatica- Primary Anxiety Anxiety state, unspecified Anxiety- Primary Anxiety state, unspecified Hx of opioid abuse ([facility]) Chronic bilateral low back pain without sciatica Overweight (BMI 25.0-29.9) Overweight Anxiety- Primary Anxiety state, unspecified Major depressive disorder, single episode, in full remission ([facility]) Major depressive disorder, single episode in full remission Overweight (BMI 25.0-29.9) Overweight Osteoporosis, post-menopausal ([facility]) Senile osteoporosis Gastroesophageal reflux disease without esophagitis Esophageal reflux Heart murmur Undiagnosed cardiac murmurs Pain in both lower extremities- Primary Muscle cramps at night Cramp of limb Vitamin deficiency Unspecified vitamin deficiency Chronic bilateral low back pain without sciatica Chronic bilateral low back pain without sciatica documented in this encounter [facility]Evaluation note* Diagnosis Medicare annual wellness [...] Anxiety state, unspecified Hx of opioid abuse ([facility]) Chronic bilateral low back pain without sciatica [...] Anxiety state, unspecified Hx of opioid abuse ([facility]-HCC) Chronic bilateral low back pain without sciatica [...] hyperlipidemia Mixed hyperlipidemia Hx of opioid abuse ([facility]-HCC) Anxiety Anxiety state, unspecified Gastroesophageal reflux disease without esophagitis Esophageal reflux Encounter for screening mammogram for malignant neoplasm of breast Chronic bilateral low back pain without sciatica documented in this encounter [facility] HealthcareEvaluation note* Diagnosis Medicare annual wellness [...] Anxiety state, unspecified Hx of opioid abuse ([facility]-HCC) Chronic bilateral low back pain without sciatica [...] hyperlipidemia Mixed hyperlipidemia Hx of opioid abuse ([facility]) Anxiety Anxiety state, unspecified Gastroesophageal reflux disease without esophagitis Esophageal reflux Encounter for screening mammogram for malignant neoplasm of breast Chronic bilateral low back pain without sciatica Hammer toe of left foot- Primary Metatarsal deformity, left documented in this encounter [facility]* [...] Anxiety state, unspecified Hx of opioid abuse ([facility]) Chronic bilateral low back pain without sciatica [...] hyperlipidemia Mixed hyperlipidemia Hx of opioid abuse ([facility]) Anxiety Anxiety state, unspecified Gastroesophageal reflux disease without esophagitis Esophageal reflux Encounter for screening mammogram for malignant neoplasm of breast Chronic bilateral low back pain without sciatica Metatarsal deformity, left- Primary Left foot pain Pain in soft tissues of limb Hammer toe of left foot Other enthesopathy of right foot and ankle Hammer toe of right foot Other synovitis and tenosynovitis, right ankle and foot [M65.871] documented in this encounter [facility] [...] section and content) DATE CREATED AUTHOR 10/20/2017 [facility] DATE CREATED AUTHOR AUTHOR'S ORGANIZ ATION 10/21/2017 [facility] DATE CREATED AUTHOR AUTHOR'S ORGANIZ ATION 10/22/2021 [facility] DATE CREATED AUTHOR AUTHOR'S ORGANIZ ATION [facility]/30/2022 [facility] DATE CREATED AUTHOR AUTHOR'S ORGANIZ ATION 01/10/2025 [facility] Specialists EPIC Care Teams (unrecognized sec tion and content) Primary Operator Relationship Specialty Start Date End Date Rosario Amezquita NP [address] [place] [phone] PCP - Vidal HERNANDEZ 04/27/23 Dayton Amaya MD [address] [place] [address] PCP - General Family Medicine 06/11/23 Rosario Amezquita NP [address] [place] [address] Referring Physician Nurse Practitioner 11/12/22 Rosario Amezquita NP [address] [place] [address]110[address] Nurse Practitioner Family Medicine 06/11/23 Primary Operator Relationship Specialty Start Date End Date Rosario Amezquita NP [address] [place] [address]10[address] PCP - [place] 04/27/23 Dayton Amaya MD [address] [place] [address]10[address] PCP - General Family Medicine 06/11/23 Rosario Amezquita NP [address] [place] [address]10[address] Referring Physician Nurse Practitioner 11/12/22 Rosario Amezquita NP [address] [place] [address]447610[address] Nurse Practitioner Family Medicine 06/11/23 Primary Operator Relationship Specialty Start Date End Date Rosario Amezquita NP [address] [place] [address]462710[address] PCP - Vidal HERNANDEZ 04/27/23 Dayton Amaya MD [address] [place] [address]760410[address] PCP - General Family Medicine 06/11/23 Rosario Amezquita NP [address] [place] [address]10[address] Referring Physician Nurse Practitioner 11/12/22 Rosario Amezquita NP [address] [place] [address]356410[address] Nurse Practitioner Family Medicine 06/11/23 Primary Operator Relationship Specialty Start Date End Date Rosario Amezquita NP [address] [place] [address]14[address] PCP - Vidal HERNANDEZ 04/27/23 Dayton Amaya MD [address] [place] [address] PCP - General Family Medicine 06/11/23 Rosario Amezquita NP [address] [place] [address] Referring Physician Nurse Practitioner 11/12/22 Rosario Amezquita NP [address] [place] [address] Nurse Practitioner Family Medicine 06/11/23 Primary Operator Relationship Specialty Start Date End Date Rosario Amezquita NP [address] [place] [address] PCP - Vidal HERNANDEZ 04/27/23 Dayton Amaya MD [address] [place] [address] PCP - General Family Medicine 06/11/23 Rosario Amezquita NP [address] [place] [address] Referring Physician Nurse Practitioner 11/12/22 Rosario Amezquita NP [address] [place] [address] Nurse Practitioner Family Medicine 06/11/23 Primary Operator Relationship Specialty Start Date End Date Rosario Amezquita NP [address] [place] [address] PCP - Vidal HERNANDEZ 04/27/23 Dayton Amaya MD [address] [place] [address] PCP - General Family Medicine 06/11/23 Rosario Amezquita NP [address] [place] [address] Referring Physician Nurse Practitioner 11/12/22 Rosario Amezquita NP [address] [place] [address] Nurse Practitioner Family Medicine 06/11/23 Primary Operator Relationship Specialty Start Date End Date Rosario Amezquita NP [address] [place] [address] PCP - Vidal HERNANDEZ 04/27/23 Dayton Amaya MD [address] [place] [address] PCP - General Family Medicine 06/11/23 Rosario Amezquita NP [address] [place] [address] Referring Physician Nurse Practitioner 11/12/22 Rosario Amezquita NP [address] [place] [address] Nurse Practitioner Family Medicine 06/11/23 Primary Operator Relationship Specialty Start Date End Date Rosario Amezquita NP [address] [place] [address] PCP - Vidal HERNANDEZ 04/27/23 Dayton Amaya MD [address] [place] [address]3310[address] PCP - General Family Medicine 06/11/23 Rosario Amezquita NP [address] [place] [address]10[address] Referring Physician Nurse Practitioner 11/12/22 Rosario Amezquita NP [address] [place] [address]10[address] Nurse Practitioner Family Medicine 06/11/23 Primary Operator Relationship Specialty Start Date End Date Rosario Amezquita NP [address] [place] [address]5610[address] PCP - Vidal HERNANDEZ 04/27/23 Dayton Amaya MD [address] [place] [address]10[address] PCP - General Family Medicine 06/11/23 Rosario Amezquita NP [address] [place] [address] Referring Physician Nurse Practitioner 11/12/22 Rosario Amezquita NP [address] [place] [address]10[address] Nurse Practitioner Family Medicine 06/11/23 Primary Operator Relationship Specialty Start Date End Date Rosario Amezquita NP [address] [place] [address] PCP - Vidal HERNANDEZ 04/27/23 Dayton Amaya MD [address] [place] [address]010[address] PCP - General Family Medicine 06/11/23 Rosario Amezquita NP [address] [place] [address]34810[address] Referring Physician Nurse Practitioner 11/12/22 Rosario Amezquita NP [address] [place] [address]10[address] Nurse Practitioner Family Medicine 06/11/23 Primary Operator Relationship Specialty Start Date End Date Rosario Amezquita NP [address] [place] [address]10[address] PCP - Vidal HERNANDEZ 04/27/23 Dayton Amaya MD [address] [place] [address] PCP - General Family Medicine 06/11/23 Rosario Amezquita NP [address] [place] [address] Referring Physician Nurse Practitioner 11/12/22 Rosario Amezquita NP [address] [place] [address] Nurse Practitioner Family Medicine 06/11/23 Primary Operator Relationship Specialty Start Date End Date Dayton Amaya MD [address] [place] [address] PCP - General Family Medicine 06/11/23 Rosario Amezquita NP [address] [place] [address] Referring Physician Nurse Practitioner 11/12/22 Rosario Amezquita NP [address] [place] [address] Nurse Practitioner Family Medicine 06/11/23 Primary Operator Relationship Specialty Start Date End Date Rosario Amezquita NP [address] [place] [address] PCP - Vidal HERNANDEZ 04/27/23 Dayton Amaya MD [address] [place] [address] PCP - General Family Medicine 06/11/23 Rosario Amezquita NP [address] [place] [address] Referring Physician Nurse Practitioner 11/12/22 Rosario Amezquita NP [address] [place] [address] Nurse Practitioner Family Medicine 06/11/23 Primary Operator Relationship Specialty Start Date End Date Rosario Amezquita NP [address] [place] [address] PCP - Vidal HERNANDEZ 04/27/23 Dayton Amaya MD [address] [place] [address] PCP - General Family Medicine 06/11/23 Roasrio Amezquita NP [address] [place] [address]10[address] Referring Physician Nurse Practitioner 11/12/22 Rosario Amezquita NP [address] [place] [address] Nurse Practitioner Family Medicine 06/11/23 Primary Operator Relationship Specialty Start Date End Date Rosario Amezquita NP [address] [place] [address]10[address] PCP - Vidal HERNANDEZ 04/27/23 Dayton Amaya MD [address] [place] [address] PCP - General Family Medicine 06/11/23 Rosario Amezquita NP [address] [place] [address] Referring Physician Nurse Practitioner 11/12/22 Rosario Amezquita NP [address] [place] [address] Nurse Practitioner Family Medicine 06/11/23 Primary Operator Relationship Specialty Start Date End Date Rosario Amezquita NP [address] [place] [address] PCP - Vidal HERNANDEZ 04/27/23 Dayton Amaya MD [address] [place] [address] PCP - General Family Medicine 06/11/23 Rosario Amezquita NP [address] [place] [address] Referring Physician Nurse Practitioner 11/12/22 Rosario Amezquita NP [address] [place] [address]10[address] Nurse Practitioner Family [facility] 06/11/23 Primary Operator Relationship Specialty Start Date End Date Rosario Amezquita NP [address] [place] [address] PCP - Vidal HERNANDEZ 04/27/23 Dayton Amaya MD [address] [place] [address] PCP - General Family Medicine 06/11/23 Rosario Amezquita NP [address] [place] [address] Referring Physician Nurse Practitioner 11/12/22 Rosario Amezquita NP [address] [place] [address]27710[address] Nurse Practitioner Family Medicine 06/11/23 Primary Operator Relationship Specialty Start Date End Date Rosario Amezquita NP [address] [place] [address] PCP - Vidal HERNANDEZ 04/27/23 Dayton Amaya MD [address] [place] [address] PCP - General Family Medicine 06/11/23 Rosario Amezquita NP [address] [place] [address] Referring Physician Nurse Practitioner 11/12/22 Rosario Amezquita NP [address] [place] [address] Nurse Practitioner Family Medicine 06/11/23 Primary Operator Relationship Specialty Start Date End Date Rosario Amezquita NP [address] [place] [address] PCP - Vidal HERNANDEZ 04/27/23 Dayton Amaya MD [address] [place] [address] PCP - General Family Medicine 01/09/25 Rosario Amezquita NP [address] [place] [address] Referring Physician Nurse Practitioner 11/12/22 Rosario Amezquita NP [address] [place] [address] Nurse Practitioner Family Medicine 06/11/23 Primary Operator Relationship Specialty Start Date End Date Rosario Amezquita NP [address] [place] [address] PCP - Vidal HERNANDEZ 04/27/23 Dayton Amaya MD [address] [place] [address] PCP - General Family Medicine 01/09/25 Rosario Amezquita NP [address] [place] [address] Referring Physician Nurse Practitioner 11/12/22 Rosario Amezquita NP [address] [place] [address] Nurse Practitioner Family Medicine 06/11/23 Primary Operator Relationship Specialty Start Date End Date Rosario Amezquita NP [address] [place] [address] PCP - Vidal HERNANDEZ 04/27/23 Dayton Amaya MD [address] [place] [address] PCP - General Family Medicine 01/09/25 Rosario Amezquita NP [address] [place] [address] Referring Physician Nurse Practitioner 11/12/22 Rosario Amezquita NP [address] [place] [address] Nurse Practitioner Family Medicine 06/11/23 Reason for Visit (unrecogniz ed section and content) Reason Comments Med Refill Reason Comments Leg Pain Aches and pain in le gs Reason Comments Cough Reason Comments Foot Deformity LT foot 3rd digit de formity after sx in 2021 FOR RECORDS PERTAINING TO PATIENTS WHO ARE [...] BE BASED ON THE PRIMARY CLINICAL RECORDS. [employer] provides no warranty or guarantee of the accuracy or completeness of information in this document.
== END 2025-01-12 13:06 | disposition home or self-care (01) ==
LOC: MAMMO 13:05
PROVIDERS: PCP Nurse Practitioner; Visit Provider Nurse Practitioner
DX: Z12.31 Encounter for screening mammogram for malignant neoplasm of breast (principal); Z80.42 Family history of malignant neoplasm of prostate
CPT/HCPCS: 77063; 77067

== ENCOUNTER 2025-02-22 21:51 | Emergency (ER) | payer MEDICARE, SELFPAY ==
--- OUTSIDE RECORDS SUMMARY | 2023-12-29 10:30 | XMS_ITS ---
Author Organization [facility] Servic es Address [address] [place] [address] Care Team Providers Care Wind Development Director Name Role Phone Taco Herndon Primary Care Provider REASON FOR VISIT FILLING Encounters Encounter Location Date Provider Diagnosis [address] [place] [address] 12/29/2023 Taco Parnell Plan Of Treatment Next Appt Details Provider Name:Lindsay Babcock, 05/15/2025 11:00:00 AM, [address], [place], [address], Progress Notes * JAMIE ADRIANOB:1955 (69 yo F)Acc No.[id number]:12/29/2023 Patient:?SOFIE ADRIAN :?TACO PARNELL DDSDOB:1955???Age: 68 Y???Sex:FemaleDate:12/29/2023hone:[phone]:[address] [place], [place] [id number] Subjective: * Chief Complaints: * F ILLING Billing Information: * Procedure Codes: * Electronic signature of Taco Parnell DDS on 02/22/2025 at 10:10 PM EDTSign off status: Pending * Provider: Vera PARNELL DDS Date: 0 12/29/2023 Generated for Printing/Faxing/eTransmitting on:?02/22/2025 10:10 PM EDT
--- OUTSIDE RECORDS SUMMARY | 2024-08-10 06:00 | XMS_ITS ---
Author Organization [facility] Address [address] [place] [address] Care Team Providers Care Bobbin Marker Name Role Phone Taco Herndon Primary Care Provider REASON FOR VISIT FILLING Encounters Encounter Location Date Provider Diagnosis [address] [place] [address] 08/10/2024 Taco Parnell Plan Of Treatment Next Appt Details Provider Name:Lindsay Babcock, 05/15/2025 11:00:00 AM, [address], [place], [address], Progress Notes * JAMIE ADRIANOB:1955 (69 yo F)Acc No.[id number]:08/10/2024 Patient:?SOFIE ADRIAN :?TACO PARNELL DDSDOB:1955???Age: 69 Y???Sex:FemaleDate:08/10/2024Phone:[phone]:[address] [place] [address] Subjective: * Chief Complaints: * F ILLING * Electronic signature of Taco Parnell DDS on 02/22/2025 at 10:09 PM EDTSign off status: Pending * Provider: Vera PARNELL DDS Date: 0 08/10/2024 Generated for Printing/Faxing/eTransmitting on:?02/22/2025 10:09 PM EDT
--- OUTSIDE RECORDS SUMMARY | 2024-11-02 09:30 | XMS_ITS ---
Author Organization [facility] Address [address] [place] [address] Care Team Providers Care Water Purifier Operator Name Role Phone Lesley Herndon Primary Care Provider Prema Chowdary Unavailable [phone] REASON FOR VISIT 6 MONTH PROPHY Encounters Encounter Location Date Provider Diagnosis [place] [address] [place] [address] 11/02/2024 Prema Chowdary Plan Of Treatment Next Appt Details Provider Name:Lindsay Babcock, 05/15/2025 11:00:00 AM, [address], [place], [address], Progress Notes * JAMIE ADRIANOB:1955 (69 yo F)Acc No.[id number]:11/02/2024 Patient:?SOFIE ADRIAN :?Prema MujicaDOB:1955???Age:69 Y???Sex: FemaleDate:11/02/2024Phone:[phone]:[address] [place] [address]Pcp:Lesley Angulo Subjective: * Chief Complaints: * 6 MONTH PROPHY * Electronic signature of Prema Chowdary on 02/22/2025 at 10:10 PM EDTSign off status: Pending * Provider: Odilon Mujica Date: 0 11/02/2024 Generated for Printing/Faxing/eTransmitting on:?02/22/2025 10:10 PM EDT
[2025-02-22] VITALS (13 sets, daily range): BP systolic 134–164; BP diastolic 90–101; PULSE 68–82; O2SAT 79–98
--- NOTE | 2025-02-22 21:59 | CT_ITS ---
The [address] [address] Patient Name: SOFIE ADRIAN MRN: [id number] date: 1955 Sex: F Assigned Patient Location: ED.MAIN Current Patient Location: ED.MAIN Accession/Order Number: [id number] Exam Date: 02/22/2025 22:38 Report Date: 02/22/2025 23:19 At the request of: NAYE STOUT MD Procedure: CT abdomen pelvis w con CT ABDOMEN AND PELVIS WITH INTRAVENOUS CONTRAST: CLINICAL HISTORY: abdominal pain COMPARISON: No recent comparisons are available. TECHNIQUE: Spiral images were obtained through the abdomen and pelvis following the administration of intravenous contrast. This CT exam was performed using one or more following dose reduction techniques: Automated exposure control, adjustment of the mA and/or kV according to patient size, or use of iterative reconstruction technique. FINDINGS: Lung Bases: [Coronary disease. Lung bases grossly clear with minimal right basilar atelectasis and or scarring. Small hiatal hernia.] Organs:Liver, gallbladder, spleen, adrenals, kidneys, and pancreas are unremarkable.[ GI: Stomach distended with air fluid level. Dilated loops of small bowel identified with twisting of the mesentery noted left mid to lower abdomen[. There are collapsed loops of small bowel within the right upper quadrant Pelvis:[Uterus unremarkable. No suspicious adnexal mass. Bladder is unremarkable.] Peritoneum/Retroperitoneum:No free air congested mesentery notably left upper quadrant. There is mild free fluid.. Moderate to severe plaque identified nonaneurysmal aorta.[ Abd wall/Bones:Dextrocurvature. Multilevel degenerative changes.[ CT/CT abdomen pelvis w con IMPRESSION: High-grade small bowel obstruction with twisting of the mesentery within the left midabdomen worrisome for either internal hernia versus volvulus. Discussed with there are Dr. Stout over the telephone 11:14 PM 02/22/2025 Impression dictated by: Seth Joshi M.D. 02/22/2025 11:19 PM Dictation Location: [place] [address] Electronically authenticated by: [id number] Y Date: 02/22/2025 23:19
--- NOTE | 2025-02-22 22:00 | ED.ABDPAIN1 ---
HPI - Abdominal Pain General Chief Complaint: Abdominal Pain Stated Complaint: ALLERGIC REACTION Time Seen by Provider: 02/22/25 21:58 History of Present Illness HPI narrative: presents complaining of abdominal pain. States pain started this AM and increased tonight. No associated vomiting or diarrhea. No urinary complaint. Brought in via private vehicle. No fever past history of surgery for bowel obstruction 2017 Related Data Home Medications ?Medication ?Instructions ?Recorded ?Confirmed alendronate 70 mg tablet 70 mg PO QWEEK 12/20/24 12/20/24 atorvastatin 10 mg tablet 10 mg PO DAILY 12/20/24 12/20/24 buprenorphine 8 mg-naloxone 2 mg 1 film sublingual DAILY 12/20/24 12/20/24 sublingual film (Suboxone) calcium 500 mg (as 1 tab PO BID 12/20/24 12/20/24 carbonate)-vitamin D3 15 mcg (600 unit) tablet cyclobenzaprine 10 mg tablet 10 mg PO Q12H 12/20/24 12/20/24 fluoxetine 10 mg capsule 10 mg PO DAILY 12/20/24 12/20/24 meloxicam 15 mg tablet 15 mg PO DAILY 12/20/24 12/20/24 omeprazole 40 mg capsule,delayed 40 mg PO DAILY 12/20/24 12/20/24 release semaglutide (weight loss) 0.5 0.5 mg subcut QWEEK 12/20/24 12/20/24 mg/0.5 mL subcutaneous pen injector Allergies Allergy/AdvReac Type Severity Reaction Status Date / Time Penicillins Allergy Vomiting Verified 02/22/25 22:02 Sulfa (Sulfonamide Allergy Rash Verified 02/22/25 22:02 Antibiotics) Opioids - Morphine Analogues AdvReac addiction Verified 02/22/25 22:02 Review of Systems ROS Status of ROS 10 or more systems reviewed and unremarkable except as noted in history and below [facility] Medical History (Updated 02/22/25 @ 23:42 by Percy Stout MD) Osteoporosis ?M81.0 - Age-related osteoporosis without current pathological fracture (ICD-10) Gout ?M10.9 - Gout, unspecified (ICD-10) Diverticulosis ?K57.90 - Diverticulosis of intestine, part unspecified, without perforation or abscess without bleeding (ICD-10) Anxiety ?F41.9 - Anxiety disorder, unspecified (ICD-10) Alcoholism in remission ?F10.21 - Alcohol dependence, in remission (ICD-10) Opioid abuse, in remission ?F11.11 - Opioid abuse, in remission (ICD-10) Hammertoe of left foot ?M20.42 - Other hammer toe(s) (acquired), left foot (ICD-10) Back pain ?M54.9 - Dorsalgia, unspecified (ICD-10) Anemia ?D64.9 - Anemia, unspecified (ICD-10) Anger ?R45.4 - Irritability and anger (ICD-10) Constipation ?K59.00 - Constipation, unspecified (ICD-10) Hypertension ?I10 - Essential (primary) hypertension (ICD-10) High cholesterol ?E78.00 - Pure hypercholesterolemia, unspecified (ICD-10) Arthritis ?M19.90 - Unspecified osteoarthritis, unspecified site (ICD-10) GI bleed ?K92.2 - Gastrointestinal hemorrhage, unspecified (ICD-10) History of blood transfusion ?Z92.89 - Personal history of other medical treatment (ICD-10) Surgical History (Updated 12/20/24 @ 09:39 by Reena Catalan NP) History of tonsillectomy ?Z90.89 - Acquired absence of other organs (ICD-10) History of esophagogastroduodenoscopy (EGD) ?Z98.890 - Other specified postprocedural states (ICD-10) History of colonoscopy ?Z98.890 - Other specified postprocedural states (ICD-10) History of tubal ligation ?Z98.51 - Tubal ligation status (ICD-10) H/O colectomy ?Z90.49 - Acquired absence of other specified parts of digestive tract (ICD-10) History of nasal septoplasty ?Z98.890 - Other specified postprocedural states (ICD-10) History of foot surgery ?Z98.890 - Other specified postprocedural states (ICD-10) Family History (Updated 12/20/24 @ 09:39 by Reena Catalan NP) Other Family history of coronary artery disease Family history of diabetes mellitus Family history of heart disease Family history of myocardial infarction Family history of prostate cancer Social History (Updated 12/20/24 @ 09:33 by Reena Catalan NP) Within the past year, how often did you have a drink containing alcohol: never Score interpretation: A score less than 3 is consistent with normal alcohol consumption. 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 [employer] Highest level of school completed/degree received: high school graduate Exam Constitutional Vital Signs, click to edit/add: Last Vital Signs Pulse 73 02/22/25 23:30 Resp 13 02/22/25 22:30 BP 156/92 H 02/22/25 23:30 Pulse Ox 98 02/22/25 23:30 O2 Del Method Room Air 02/22/25 21:58 Common normals: average body habitus, oriented x3, healthy appearing, alert and well nourished General appearance: in distress HENMT Common normals: normocephalic and head/scalp atraumatic Eye Common normals: EOMs intact bilaterally and conjunctivae normal Respiratory Common normals: normal respiratory effort, no retractions, no use of accessory muscles and clear to auscultation bilaterally Cardio Common normals: regular rate, regular rhythm, S1 normal heart sound and S2 normal heart sound GI Other: nonspecific gen. tenderness Extremity Common normals: normal to inspection and full ROM Neuro Common normals: oriented x3, CN's II-XII intact bilaterally, moves all extremities and no focal motor deficits Psych Appearance: grossly normal Course Vital Signs Vital signs: Vital Signs Pulse Rate 82 02/22/25 21:58 Respiratory Rate 12 02/22/25 21:58 Blood Pressure 134/92 H 02/22/25 21:58 Pulse Oximetry 94 L 02/22/25 21:58 Oxygen Delivery Method Room Air 02/22/25 21:58 Pulse Rate 73 02/22/25 23:30 Respiratory Rate 13 02/22/25 22:30 Blood Pressure 156/92 H 02/22/25 23:30 Pulse Oximetry 98 02/22/25 23:30 Oxygen Delivery Method Room Air 02/22/25 21:58 MDM - Abdominal Pain MDM Narrative Medical decision making narrative: patient presents with abdominal pain that started this AM and has progressed. No vomiting or fever. Abdomen with gen. tenderness. No guarding. WBC normal. CT with finding of hig grade small bowel obstruction with twisting of the mesentery worrisome for either internal hernia vs volvulus. patient has past history of surgery for SBO 2017 at [facility] and would like to go back there for her care. Called placed to [facility] hospital contacted. Spoke to Gen surgeon market relationship manager. He would like the patient admitted to hospitalist service and he will consutl. Spoke to Hospitalist Dr Holliday and patient accepted in transfer Lab Data Labs: Lab Results 02/22/25 02/22/25 Range/Units 22:00 22:15 WBC 9.0 (4.0-11.0) 10^3/uL RBC 4.24 (4.20-5.40) 10^6/uL Hgb 12.1 (12.0-16.0) g/dL Hct 38.2 (36.0-48.0) % MCV 90.1 (81.0-99.0) fL MCH 28.5 (26.7-34.0) pg MCHC 31.7 (29.9-35.2) g/dL RDW 13.7 (11.0-15.0) % Plt Count 170 (150-450) 10^3/uL MPV 11.0 (9.5-13.5) fL Neut % (Auto) 73.5 (43.0-75.0) % Lymph % (Auto) 15.9 L (20.5-60.0) % [place] % (Auto) 7.9 (1.7-12.0) % Eos % (Auto) 2.0 (0.9-7.0) % Baso % (Auto) 0.6 (0.2-2.0) % Neut # (Auto) 6.6 H (1.4-6.5) 10^3/uL Lymph # (Auto) 1.4 (1.2-3.8) 10^3/uL [place] # (Auto) 0.7 (0.3-0.8) 10^3/uL Eos # (Auto) 0.2 (0.0-0.7) 10^3/uL Baso # (Auto) 0.1 (0.0-0.1) 10^3/uL Abs Immat Gran (auto) 0.01 (0.00-0.03) 10^3/uL Imm/Tot Granulo (auto) 0.1 (0.0-0.5) % Sodium 137 (136-145) mmol/L Potassium 3.7 (3.5-5.1) mmol/L Chloride 101 (98-107) mmol/L Carbon Dioxide 28.3 (21.0-32.0) mmol/L Anion Gap 11.4 BUN 18.0 (7.0-18.0) mg/dL Creatinine 0.83 (0.55-1.02) mg/dL Est GFR ( Amer) >60 (>=60 mL/min/1.73m^2) Est GFR (Non-Af Amer) >60 (>=60 mL/min/1.73m^2) BUN/Creatinine Ratio 21.7 Glucose 133 H (74-106) mg/dL Lactate 1.3 (0.4-2.0) mmol/L Calcium 10.3 H (8.5-10.1) mg/dL Total Bilirubin 0.7 (0.2-1.0) mg/dL AST 23 (15-37) U/L ALT 14 (14-59) U/L Alkaline Phosphatase 48 (46-116) U/L Troponin I High Sens <4.0 L (4.0-51.3) pg/mL Total Protein 7.8 (6.4-8.2) g/dL Albumin 3.9 (3.4-5.0) g/dL Globulin 3.9 g/dL Albumin/Globulin Ratio 1.0 Lipase 21.0 (16.0-77.0) U/L Discharge Plan Discharge Chief Complaint: Abdominal Pain Clinical Impression: Small bowel obstruction Patient Disposition: [facility]
--- NOTE | 2025-02-22 22:04 | ECG_ITS ---
The [facility] Test Date: 2025-02-22 Pat Name: SOFIE ADRIAN Department: Room: - Gender: Female Ethics Instructor: : 1955 Requested By: 1031 Order Number: [id number] Reading MD: ALFREDO VALDEZ M.D. Measurements Intervals [place] Rate: 75 P: -3 IA: 122 QRS: 32 QRSD: 80 T: 18 QT: 390 QTc: 418 Interpretive Statements 1100 Sinus rhythm 9110 normal ECG Compared to ECG 12/20/2024 07:53:42 No significant changes Electronically Signed On 02-23-2025 6:37:07 EDT by ALFREDO VALDEZ M.D.
--- OUTSIDE RECORDS SUMMARY | 2025-02-22 22:09 | XMS_ITS | Clinical Summary ---
Author Organization [facility] Address [address] [place] [address] Care Team Providers Care Channel Installer Name Role Phone Rosario Amezquita CNP Primary Care Provider [phone] Allergies Active AllergyReactionsCriticalityNoted DateCommentsPenicillinsVomiting 10/21/2013Sulfa (Sulfonamide Antibiotics)Rash10/21/2013 Medications MedicationSigDispense QuantityRefillsLast FilledStart DateEnd DateStatus FLUoxetine HCl 20 mg tablet Take 40 mg by mouth once daily.Active Omeprazole (PRILOSEC) 40 mg capsule Take 1 capsule by mouth once daily. 30 capsule ctive Additional Information Patient taking differently:40 mg ORAL2 TIMES DAILY, Reported on 08/08/2015 atorvastatin (LIPITOR) 10 mg tablet Take 10 mg by mouth once daily.Active meloxicam (MOBIC) 15 mg tablet Take 15 mg by mouth once daily.Active buprenorphine-naloxone (SUBOXONE) 8-2 mg film Dissolve 8.2 Film under the tongue once daily. Dissolve 2 films under the tongue once daily10/09/2021ctive cyclobenzaprine (FLEXERIL) 5 mg tablet Take 5 mg by mouth three times daily as needed.12/02/2021ctive lisinopril 2.5 mg tablet Take 2.5 mg by mouth once daily.01/06/2022ctive FEROSUL 325 mg (65 mg iron) tablet Take 1 tablet by mouth twice daily.11/04/2021ctive alendronate (FOSAMAX) 70 mg tablet take 1 tablet by mouth every week WITH WATER 30 MINUTES BEFORE FI... (REFER TO PRESCRIPTION NOTES).2Active Active Problems ProblemNoted DateDiagnosed DateSmall bowel luejhqzumqr28/25/2022BO (small bowel obstruction)01/08/2017Status post gmifanr9009/19/2015Exertional qermgrw8908/08/2015 Overview (08/09/2015): Reports increasing exertional dyspnea for the past several months. Related to anemia vs COPD vs cardiac Emphysema of lung08/08/2015 Overview (08/08/2015): 15 pack year smoking history. Quit in 2003 Alcohol abuse08/08/2015 Overview (08/10/2015): 1 bottle of wine daily. Last drink 08/05 Plan CIWA protocol Rectal htkltufy51/12/2016 Overview (08/10/2015): History Has had 2 previous [...] endoscopy Hold beta dillan BPV (benign positional vertigo)10/31/2014HLD (hyperlipidaemia)10/31/2014Iron deficiency wcosmm9412/23/2013 Overview (08/08/2015): Home with iron supplementation PUD (peptic ulcer disease)12/23/2013 Overview (08/09/2015): Continue 40 BID PPI Taking 800mg TID ibuprofen Carotid stenosisVertigoTachycardia Immunizations ImmunizationAdministration DatesNext Dueinfluenza (IIV3) vaccine, age 6 mo - 64 yr, trivalent (AFLURIA, FLULAVAL, FLUVIRIN, FLUZONE)01/25/2013influenza (IIV3) vaccine, trivalent (AFLURIA, FLULAVAL, FLUVIRIN, FLUZONE)04/01/2013,01/29/2012 influenza (IIV4) vaccine, age 6 mo - 64 yr, quadrivalent, PF (AFLURIA, FLUARIX, FLULAVAL, FLUZONE)03/25/2021influenza vaccine, unspecified cfnyzziupdm75/10/2017 pneumococcal polysaccharide (PPV23) vaccine, 23 valent (PNEUMOVAX 23)01/25/2013, 01/29/2012 Family History Medical HistoryRelationCommentsDiabetesFatherHeartFatherLipidsFatherHeartMother HypertensionMotherArthritisSisterRelationStatusCommentsFatherMotherSister Social History Tobacco UseTypesPacks/DayYears UsedDateSmoking Tobacco: FormerCigarettes0.520 07/27/1983 - 07/27/2003Smokeless Tobacco: NeverAlcohol UseStandard Drinks/Week CommentsYes0 (1 standard drink = 0.6 oz pure alcohol)drinks a bottle of wine daily; sometimes moreArea Deprivation IndexAnswerDate RecordedNational Score (1- 100), lower number is lower irqe765505/22/2022State Score (1-10), lower number is lower riskNot on file3Data from: https://www.neighborhoodatlas.[facility].edu/. 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 on fileNot on fileNot on filedrug martNot on fileNot on fileNot on file Last Filed Vital Signs Vital SignReadingTime TakenCommentsBlood Uromczzn132/7909 10:49 AM EDT Qppoi0791 10:49 AM ROCAzsixjcfpla13.7 ??C (98 ??F)01/21/2022 10:49 AM EDTRespiratory Onva752601/21/2022 10:49 AM EDTOxygen Xuslszgtzb80%01/21/2022 10:49 AM EDTInhaled Oxygen Concentration--Soueml68 kg (132 lb 3.2 oz)01/21/2022 10:49 AM AYBGsgncr719.9 cm (5' 0.98 )01/21/2022 10:49 AM EDTBody Mass Index24.99 01/21/2022 10:49 AM EDT Plan of Treatment Health MaintenanceDue DateLast DoneCommentsAnxiety Qnohjhdie74/14/1974Depression Kkmhupygk28/14/1974DTaP,Tdap,Td Vaccine (1 - Tdap)1974CT Colonography 2000Cologuard (FIT-DNA)2000Fecal Occult Blood2000Lipid Cnmvuzhfp00/14/5412Yakrbeusgohkh68/14/2001Shingrix Vaccine (1 of 2)2005 Pneumococcal Vaccine: 50+ (2 of 2 - PCV), 01/29/2012 Mammogram Tzbxpfxna82Colonoscopy, 12/04/2013, 11/28/2013Colorectal Cancer Hwwcqvfmm50/14/2019Bone Density Kzjjffalw18/14/2021dvance Directive Xgnfvvhgyg53/01/2025Diabetes Screening /, 10/19/2021, 01/12/2017, Additional history existsCovid-19 Vaccine ( season)/, 07/04/2020Influenza Vaccine (#1)/, 02/03/2017, 04/01/2013, Additional history existsRSV Vaccine (1 - 1-dose 75+ series)2030Hepatitis C ScreeningCompleted 04/04/2014 Procedures Procedure NamePriorityDate/TimeAssociated DiagnosisCommentsBASIC METABOLIC PANEL Vdtibeh3110/22/2021 7:14 AM EDT COLONOSCOPY - ZBCAQUKBWKLrmswlk29/14/2016 10:14 AM EDT HEP ACUTE PANEL/SWTOscjomx37/09/2014 10:10 AM EST Abnormal LFTs Abnormal findings on esophagogastroduodenoscopy (EGD) from Last 3 Months or Most Recently Relevant to Health Maintenance Results * (ABNORMAL) BASIC METABOLIC PNL (10/22/2021 7:14 AM EDT)ComponentValueRef Range Test MethodAnalysis TimePerformed AtPathologist PmrskfmdzHnfelye5703 - 99 mg/dL10/22/2021 9:40 AM [facility] LABComment: The [place] Diabetes Association (ADA) provides guidance for cutoff values for fasting glucose andrandom glucose. The ADA defines fasting as no [...] Standards of Medical Care in Diabetes 2016, [place] [employer]. Diabetes Care. 2016.39(Suppl 1). BUN6(L)7 - 21 mg/dL10/22/2021 9:40 AM [facility] Creatinine0.580.58 - 0.96 mg/dL10/22/2021 9:40 AM [facility] MLKDqcgkz298(H)136 - 144 mmol/L10/22/2021 9:40 AM [facility] LABPotassium3.2(L)3.7 - 5.1 mmol/L10/22/2021 9:40 AM [facility] SLPBidgsbhu70495 - 105 mmol/L10/22/2021 9:40 AM [facility] UQFVQ04507 - 30 mmol/L10/22/2021 9:40 AM [facility] LABAnion Akm844 - 18 mmol/L10/22/2021 9:40 AM [facility] LABCalcium, Total9.58.5 - 10.2 mg/dL10/22/2021 9:40 AM [facility] LABEstimated Glomerular Filtration Suha351>=60 mL/min/1.73m 10/22/2021 9:40 AM [facility] LABComment:Estimated Glomerular Filtration Rate (eGFR) is calculated using the 2020 CKD-EPI creatinine equation. This equation utilizes serum creatinine, sex, and age as parameters. The creatinine assay has traceable calibration to isotope dilution- mass spectrometry. Refer to KDIGO guidelines for clinical interpretation. In patients with unstable renal function, e.g. those with acute kidney injury, the eGFRmay not accurately reflect actual GFR.Specimen (Source)Anatomical Location / LateralityCollection Method / VolumeCollection TimeReceived TimeBloodBLOOD SPECIMEN / UnknownVenipuncture / Rrhirxk7710/22/2021 7:14 AM EDT10/22/2021 7:28 AM EDT Narrative Authorizing ProviderResult TypeResult StatusLucas Gurdeep Acosta MD LABORATORYFinal ResultPerforming OrganizationAddressCity/State/ZIP CodePhone Number [facility] [address] * COLONOSCOPY - DIAGNOSTIC (08/09/2015 10:14 AM EDT)ComponentValueRef RangeTest MethodAnalysis TimePerformed AtPathologist SignatureTranscriptionQ3 Patient Name: Elizabeth Joseph Procedure Date: 08/09/2015 10:14 AM Date of : 1955 Admit Type: Inpatient Age: 60 Gender: Female Note Status: Finalized Attending MD: Irene Fuentes MD Procedure: ?Colonoscopy Indications: ?Melena Providers: ?Irene Fuentes MD, Eboni Vera MD (Fellow) Patient Profile: ?This is a 60 year old female. Refer to note in patient ?chart for documentation of history and physical. Last ?Colonoscopy: within the past year. Referring Physician: Medicines: ?Midazolam 1 mg IV, Fentanyl 25 micrograms IV, see other ?procedure note for additional medications given prior ?to this procedure Complications: ?No immediate complications. Requesting Provider: Procedure: ?Pre-Anesthesia Assessment: ?- Prior to the procedure, a History and Physical was ?performed, and patient medications and allergies were ?reviewed. The patient's tolerance of previous ?anesthesia was also reviewed. The risks and benefits of ?the procedure and the sedation options and risks were ?discussed with the patient. All questions were ?answered, and informed consent was obtained. Prior ?Anticoagulants: The patient has taken no previous ?anticoagulant or antiplatelet agents. ASA Grade ?Assessment: III - A patient with severe systemic ?disease. After reviewing the risks and benefits, the ?patient was deemed in satisfactory condition to undergo ?the procedure. ?After I obtained informed consent, the scope was passed ?under direct vision. Throughout the procedure, the ?patient's blood pressure, pulse, and oxygen saturations ?were monitored continuously. The Colonoscope was ?introduced through the anus and advanced to the cecum, ?identified by appendiceal orifice and ileocecal valve. ?The colonoscopy was performed without difficulty. The ?patient tolerated the procedure well. The quality of ?the bowel preparation was fair. The ileocecal valve, ?appendiceal orifice, and rectum were photographed. Findings: ? The digital rectal exam findings include melena. ? Hematin (altered blood/remfca-ynsonj-almm material) was found in the ? entire colon. Lavage of the area was performed using a large amount, ? resulting in clearance with fair visualization. No source of bleeding ? was found. Impression: ? - Melena. found on digital rectal exam. ?- Blood in the entire examined colon. ?- No specimens collected. Estimated Blood Loss: Estimated blood loss: none. Recommendation: ? - Resume previous diet. ?- Continue present medications. ?- Return patient to [facility] for ongoing care. ?- Patient has a contact number available for ?emergencies. The signs and symptoms of potential ?delayed complications were discussed with the patient. ?Return to normal activities tomorrow. Written discharge ?instructions were provided to the patient. ?- Repeat colonoscopy for screening purposes. Procedure Code(s): ?--- Professional --- ?57503, Colonoscopy, flexible; diagnostic, including ?collection of specimen(s) by brushing or washing, when ?performed (separate procedure) CPT copyright 2014 [place] [employer]. All rights reserved. Attending Participation: ? I was present and participated during the entire procedure, including ? non-peters portions. MD Irene Rodriguez MD 08/09/2015 11:39:15 AM This report has been signed electronically by Irene Fuentes MD Number of Addenda: 0 Note Initiated On: 08/09/2015 10:14 AM Procedure Start: 10:50:21 AM Procedure End: 11:32:15 AMDIGESTIVE DISEASE INSTITUTEAnatomical RegionLaterality ModalityOtherSpecimen (Source)Anatomical Location / LateralityCollection Method / VolumeCollection TimeReceived Time08/09/2015 10:14 AM EDT Narrative Authorizing ProviderResult TypeResult StatusParvin Whittaker MDDIGESTIVE DISEASEFinal Result * HEP ACUTE PANEL/RNA (04/04/2014 10:10 AM EST)ComponentValueRef RangeTest MethodAnalysis TimePerformed AtPathologist SignatureHep A Ab, IgMNegativeNEGAT [facility] LABORATORYHep B Core Ab, IgMNegativeNEGATCGUERNSEY MEMORIAL [facility]PITAL MAIN LABORATORYHBsAgNegativeNEGATCGUERNSEY MEMORIAL [facility]OSPITAL MAIN LABORATORYHCV RNA by PCRHCV RNA not detected by PCR.IU/mLCLEVELUNITED HOSPITAL MAIN LABORATORY Comment: Reference Range: Negative for HCV RNA The Linear Range of this assay is 15 IU/mL to 100,000,000 IU/mL. Specimen (Source)Anatomical Location / LateralityCollection Method / Volume Collection TimeReceived TimeBlood specimen (specimen)BLOOD SPECIMEN / Unknown 04/04/2014 10:10 AM EST04/04/2014 10:12 AM EST Narrative Authorizing ProviderResult TypeResult StatusFlory Gaines MD, PhDLABORATORY Final ResultPerforming OrganizationAddressCity/State/ZIP CodePhone Number [facility] [address] [place] [address] from Last 3 Months or Most Recently Relevant to Health Maintenance Insurance * Guarantor: Elizabeth Joseph TypeRelation to PatientDate of BirthPhone Billing AddressSelf [id number] [address] [place] [address] [address] [place] [address] Care Teams Team MemberRelationshipSpecialtyStart DateEnd Date Rosario Amezquita, TABLE MAKER PCP - GeneralFamily Medicine10/18/21
--- OUTSIDE RECORDS SUMMARY | 2025-02-22 22:09 | XMS_ITS | Clinical Summary ---
Author Organization [employer] s tem Address [facility] [id number] [place] [address] Care Team Providers Care Residential Leasing Agent Name Role Phone Unavailable Primary Care Provider Unavailabl e Allergies Active AllergyReactionsCriticalityNoted HawjPkvowucyLlmqejhqdqDxcqBot36/03/2023 Sulfa (Sulfonamide Antibiotics)Nausea And Eciptrih62/03/2023 Medications MedicationSigDispense QuantityRefillsLast FilledStart DateEnd DateStatus atorvastatin (LIPITOR) 10 mg tablet take 1 tablet by mouth at bedtimeActive omeprazole (PriLOSEC) 40 mg capsule take 1 capsule by mouth once daily12/04/2022ctive FLUoxetine (PROzac) 20 mg capsule take 1 capsule by mouth once daily12/09/2022ctive meloxicam (MOBIC) 15 mg tablet take 1 tablet by mouth dailyActive cyclobenzaprine (FLEXERIL) 5 mg tablet Take 2 tablets (10 mg total) by mouth 3 (three) times a day as needed for muscle spasms.Active Active Problems No known active problems Family History Medical HistoryRelationNameCommentsDiabetesFatherRelationNameStatusComments FatherDeceasedMotherDeceased Social History Tobacco UseTypesPacks/DayYears UsedDateSmoking Tobacco: NeverSmokeless Tobacco: Never Tobacco Cessation:Counseling Given: Not Answered ChildcareAnswerDate GeannpsmYrycqvmrwUxybrun10/12/2019EmploymentAnswerDate QlesgdlzCotivxbiolBxxayfw93/12/2019Hunger ScreeningAnswerDate RecordedWithin the past 12 months we worried whether our food would run out before we got money to buy more.Never True10/03/2023Within the past 12 months the food we bought just didn't last and we didn't have money to get more.Never True3 CommentsUnknownSex and Gender InformationValueDate RecordedSex Assigned at Not on fileLegal LryGylhjr31/06/2015 11:26 AM EDTGender IdentityNot on file Sexual OrientationNot on file Last Filed Vital Signs Vital SignReadingTime TakenCommentsBlood Pressure--Pulse--Temperature-- Respiratory Rate--Oxygen Saturation--Inhaled Oxygen Concentration--Owjpvx15 kg (130 lb)01/27/2023 1:13 PM KNPZqukyd433.4 cm (5')01/27/2023 1:13 PM EDTBody Mass Index25.391 1:13 PM EDT Plan of Treatment Health MaintenanceDue DateLast DoneCommentsDepression Mzwxrecpl98/14/1968Tobacco Lzyixgdqe97/14/1968DTaP,Tdap and Td Vaccines (1 - Tdap)1974Fall Risk Pfcqqlzkl78/14/2021dult BMI Zppjztemb61OVID-19 Vaccine ( season)503/, 07/04/2020Influenza Lcibzjf1712/26/2024 03/25/2021, 02/03/2017, 04/01/2013, Additional history existsZoster (Shingles) VfnjibyCwymmldeq10/03/2023, 05/28/2022 Medical Devices Not on file Insurance
--- OUTSIDE RECORDS SUMMARY | 2025-02-22 22:09 | XMS_ITS | Clinical Summary ---
Author Organization [facility] Address [address] [place] [address] Care Team Providers Care Chief Airline Radio Operator Name Role Phone Rosario Amezquita TERMITE EXTERMINATOR Unavailable [phone] Rsoario Amezquita TERMITE EXTERMINATOR Unavailable [phone] Rosario Amezquita TERMITE EXTERMINATOR Unavailable [phone] Dayton Amaya MD Primary Care Provider [phone] Allergies Active AllergyReactionsCriticalityNoted DateCommentsPenicillinsRash,Unknown,GI vkecupliyowYjl20/27/2014Sulfa AntibioticsOther,Rash,XcuonmrTyx48/27/2014 SulfacetamideGI lwifepybhja46/03/2024 Medications MedicationSigDispense QuantityRefillsLast FilledStart DateEnd DateStatus Buprenorphine HCl-Naloxone HCl (Suboxone) 8-[address] 0.25 Film under the tongueActive alendronate (Fosamax) 70 MG tablet Indications:Osteoporosis, post-menopausal,Age related osteoporosis, unspecified pathological fracture presenceTake 1 tablet (70 mg) by mouth every 7 (seven) days Take with a full glass of water, remain uprightfor at least 30 mins 12 tablet 5Active Calcium 500 + D3 500-15 MG-MCG tablet TAKE 1 TABLET BY MOUTH IN THE MORNING AND BEFORE GJBFROR54/22/2025Active atorvastatin (Lipitor) 10 MG tablet Indications:HyperlipidemiaTake 1 tablet (10 mg) by mouth at bedtime 90 tablet 5Active cyclobenzaprine (Flexeril) 10 MG tablet Indications:Chronic bilateral low back pain without sciaticaTake 1 tablet (10 mg) by mouth every 12 (twelve) hours if needed for muscle spasms 180 tablet 5Active FLUoxetine (PROzac) 10 MG capsule Indications:AnxietyTake 1 capsule (10 mg) by mouth Daily 90 capsule 5Active omeprazole (PriLOSEC) [address] capsule Indications:Gastroesophageal reflux disease without esophagitisTake 1 capsule (40 mg) by mouth in the morning. Take before meals. 90 capsule 5Active meloxicam (Mobic) 15 MG tablet Indications:Chronic bilateral low back pain without sciaticaTake 1 tablet (15 mg) by mouth in the morning. 90 tablet Expired Active Problems ProblemNoted DateDiagnosed DatePain in both lower jqcwiwopiqt70/10/2024 Assessment & Plan (04/05/2024 5:50 PM EST): Does not feel it is RLS, voltaren gel helps No UE symptoms Ongoing 3 months at least Will order labs Differentials: lumbar radiculopathy, possible vit def, PAD Consider EMG if labs normal Muscle cramps at night04/05/2024 Assessment & Plan (04/05/2024 5:50 PM EST): Check labs Differentials: PAD, radiculopathy, vit def, Vitamin /10/2024Heart dplkgc6805/02/2023 Assessment & Plan (03/02/2024 2:54 PM EST): No current symtpoms Will monitor Major depressive disorder, single episode, in full ttlsyhepv47/04/2024 Assessment & Plan (10/26/2024 6:10 AM EDT): Current medications: fluoxetine Assessment & Plan (03/02/2024 2:49 PM EST): No current depression symptoms CAR[place]INA (iron deficiency anemia)02/29/2024Hx of opioid abuse10/12/2023 Assessment & Plan (10/26/2024 6:13 AM EDT): Took suboxone in the past, no recent med refills for this noted on [facility] Assessment & Plan (10/12/2023 3:16 PM EDT): Continue with suboxone and treatment through addiction services Overweight (BMI 25.0-29.9)10/12/2023 Assessment & Plan (10/12/2023 3:18 PM EDT): At this point I do not feel she has enough co morbid conditions to warrant use of adipex at BMI of 29 I have recommended that she trial a 1600 calorie diet and fu in 4 months for a recheck Diverticulosis of colon without vayxtvcaftqafl46/15/2024ain in joint, multiple sites06/11/2023Osteoporosis, post-astvbvyfrk02/15/2024 Overview (05/27/2024): DEXA 01/09/2022: -2.3 osteopenia 05/26/24: hip -2.1, FA -2.3: osteopenia Assessment & Plan (10/26/2024 6:12 AM EDT): Continue fosamax, Last dexa: 05/26/24 -2.3 osteopenia Assessment & Plan (03/02/2024 2:49 PM EST): Continue fosamax, Needs DEXA scan Assessment & Plan (06/11/2023 2:09 PM EST): Continue fosamax Medicare annual wellness visit, piqsjfugzk74/15/2024 Assessment & Plan (10/26/2024 6:10 AM EDT): Reviewed Ht/Wt/BMI Recommend eye exam yearly Recommend dental exams twice a year Balance work/leisure activities Exercises is recommended most days of the week (appropriate as chronic conditions allow) Follow up yearly and prn Assessment & Plan (06/11/2023 1:59 PM EST): Reviewed Ht/Wt/BMI Recommend eye exam yearly Recommend dental exams twice a year Balance work/leisure activities Exercises is recommended most days of the week (appropriate as chronic conditions allow) Follow up yearly and prn Owfdagxkkxyfbn05/07/2024 Assessment & Plan (10/26/2024 6:11 AM EDT): On statin therapy Check labs yearly and prn dose changes Encounter for screening mammogram for malignant neoplasm of exdjwi6406/03/2023 Lrvqgvy3206/02/2023 Assessment & Plan (10/26/2024 6:11 AM EDT): Current medication: fluoxetine Assessment & Plan (03/02/2024 2:49 PM EST): Continue fluoxetine script, but is trying to possibly discontinue Assessment & Plan (10/12/2023 3:16 PM EDT): Doing well on fluoxetine at 10mg daily Fu in 4 months Assessment & Plan (09/02/2023 3:20 PM EDT): Would also like to lower the dose on her next refill of fluoxetine Will send in Assessment & Plan (06/11/2023 2:10 PM EST): Doing well on meds Gastroesophageal reflux disease without nviylqigjcq07/27/2024 Assessment & Plan (10/26/2024 6:12 AM EDT): Recommendations: freq small meals, nothing to eat or drink at least 2 hours prior to bed, limit caffeine, alcohol, as well as spicy foods Meds to limit or avoid if possible: NSAIDS Elevate HOB if possible Current meds: omeprazole Assessment & Plan (03/02/2024 7:15 AM EST): Recommendations: freq small meals, nothing to eat or drink at least 2 hours prior to bed, limit caffeine, alcohol, as well as spicy foods Meds to limit or avoid if possible: NSAIDS Elevate HOB if possible Assessment & Plan (06/11/2023 2:10 PM EST): stable Chronic bilateral low back pain without swogckud07/04/2023 Assessment & Plan (10/12/2023 3:17 PM EDT): Did not tolerate gabapentin, is going to stick with flexeril prn Assessment & Plan (09/02/2023 3:17 PM EDT): Saw a surgeon, needs surgery, however lost her medcaid and doesn't think that her insurance is verygood. She is asking about use of Kratom, I have explained I have limited knowledge about this, I amaware of what people use it for, I have explained about side effects, and dependence as well. I do not feel this is in her best interest to take this with her hx of HARVINDER. She understands and is thankful for the advice We will trial gabapentin , 100mg will titrate up to 300mg total Resolved Problems ProblemNoted DateDiagnosed DateResolved DateViral upper respiratory tract / Assessment & Plan (05/10/2024 4:37 PM EST): Neg for flu Offered to test for COVID at [facility] or send out health trax, she declines Recommend fluids, rest, tylenol/motrin prn Warm salt water gargles, and throat lozenges Does not work til Thursday Will call if worsens, advised viruses last 7-10 days, worse by day 5 then better Primary jhrmhmyerygf77/04/202411/09/20239311Rkscrbr56/24/202406/enign qrhlnkuwzmfr43/07/202406/ Assessment & Plan (06/11/2023 2:09 PM EST): Stable, no changes in meds Gout, ofykjricxcv15/07/202405/11/2023URI (upper respiratory infection)04/29/2023 09/02/2023 Assessment & Plan (04/29/2023 12:08 PM EST): Will test for COVID and influenza, given the order and told to go to [facility] for testing in drive through covid testing Fluids, tylenol, await results to determine treatment plan No acute distress COVID Assessment & Plan (04/29/2023 2:49 PM EST): Reviewed results quarantine and RTW status, fu if not better ER if worsening as well No steroids and cough meds at this time Encounters DateTypeDepartmentCare IkueEhzkehsaqej07/15/2025 11:15 AM EDTAncillary Procedure [facility] [address] [place] [address] 01/09/2025 11:00 AM EDTOffice Visit [facility] [address] [place] [address] Dayton Simmons, DPM FACFAS Metatarsal deformity, left (Primary Dx); Left foot pain; Hammer toe of left foot; Other enthesopathy of right foot and ankle; Hammer toe of right foot; Other synovitis and tenosynovitis, right ankle and foot [M65.871]01/09/2025 Telephone [facility]P Dayton Simmons, DPM FACFAS 5Bamboo flowsheet [facility] [address] [place] [phone] Dayton Simmons, DPM FACFAS 5Clinisync Result Encounter [facility] External Department Unsolicited Provider, Generic External Data 5Clinisync Result Encounter [facility] External Department Unsolicited Provider, Generic External Data from Last 3 Months Immunizations ImmunizationAdministration DatesNext DueInfluenza, High Dose Seasonal, Preservative Free02/03/2024Influenza, Seasonal, Quadrivalent, Adjuvanted 03/18/2023Influenza, Sasdzdbldxd10/10/2017Influenza, injectable, quadrivalent, preservative free03/25/2021Influenza, seasonal, pthvbitatl50/06/2013,01/25/2013, 01/29/2012Pneumococcal Conjugate PCV 4Pneumococcal Polysaccharide SBEU1608,01/29/2012Zoster, Fctaxaisbbv08/03/2023,05/28/2022 Family History Medical HistoryRelationNameCommentsCancerFatherDiabetesFatherHyperlipidemia FatherHeart diseaseMotherRelationNameStatusCommentsFatherDeceasedMotherAlive Social History Tobacco UseTypesPacks/DayYears UsedDateSmoking Tobacco: FormerCigarettes Smokeless Tobacco: Never Tobacco Cessation:Counseling Given: Yes Alcohol UseStandard Drinks/WeekCommentsNever0 (1 standard drink = 0.6 oz pure alcohol)Humiliation, Afraid, Rape, and Kick questionnaireAnswerDate Recorded Within the last year, have you been afraid of your partner or ex-partner?No 06/02/2023Within the last year, have you been humiliated or emotionally abused in other ways by your partner or ex-partner?No06/02/2023Within the last year, have you been kicked, hit, slapped, or otherwise physically hurt by your partner or ex-partner?No06/02/2023Within the last year, have you been raped or forced to have any kind of sexual activity by your partner or ex-partner?No06/02/2023 Social Connection and Isolation PanelAnswerDate RecordedIn a typical week, how many times do you talk on the phone with family, friends, or neighbors?More than three times a week06/02/2023How often do you get together with friends or relatives?Twice a week06/02/2023How often do you attend scientologist or muslim services?Never06/02/2023o you belong to any clubs or organizations such as scientologist groups, unions, fraternal or athletic groups, or school groups?No 06/02/2023How often do you attend meetings of the clubs or organizations you belong to?Never06/02/2023re you , , , , never , or living with a partner?Ucrkpoo2006/02/2023UDIT-CAnswerDate RecordedQ1: How often do you have a drink containing alcohol?Never06/02/2023Q2: How many drinks containing alcohol do you have on a typical day when you are drinking? Patient does not drink06/02/2023Q3: How often do you have six or more drinks on one occasion?Never06/02/2023Overall Financial Resource Strain (CARDIA)AnswerDate RecordedHow hard is it for you to pay for the very basics like food, housing, medical care, and heating?Not hard at all06/02/2023HQ-2AnswerDate Recorded Patient Health Questionnaire-2 [facility] - Occupational Stress QuestionnaireAnswerDate RecordedDo you feel stress - tense, restless, nervous, or anxious, or unable to sleep at night because yourmind is troubled all the time - these days?To some mszaqh0506/02/2023Exercise Vital SignAnswerDate RecordedOn average, how many days per week do you engage in moderate to strenuous exercise (like a brisk walk)?3 days06/02/2023On average, how many minutes do you engage in exercise at this level?20 min06/02/2023Hunger Vital SignAnswerDate RecordedWithin the past 12 months, you worried that your food would run out before you got the money to buymore.Never true06/02/2023 Within the past 12 months, the food you bought just didn't last and you didn't have money to get more.Never true06/02/2023RAPARE - TransportationAnswerDate RecordedIn the past 12 months, has lack of transportation kept you from medical appointments or from getting medications?No06/02/2023In the past 12 months, has lack of transportation kept you from meetings, work, or from getting things needed for daily living?No06/02/2023Housing Stability Vital SignAnswerDate RecordedIn the last 12 months, was there a time when you were not able to pay the mortgage or rent on time?No06/02/2023In the last 12 months, how many places have you lived?In the last 12 months, was there a time when you did not have a steady place to sleep or slept in romneyelter (including now)?No 06/02/2023CommentsUnknownSex and Gender InformationValueDate RecordedSex Assigned at BirthNot on fileLegal UpsWkcfbe97/15/2023 7:17 PM EDTGender IdentityNot on fileSexual OrientationNot on file Last Filed Vital Signs Vital SignReadingTime TakenCommentsBlood Rqpkiadz969/8009/ 11:27 AM EDT Evuaa543801/09/2025 11:27 AM BVQAradqfqcqgf68.9 ??C (98.5 ??F)10/26/2024 10:38 AM EDTRespiratory Lpxd664110/26/2024 10:38 AM EDTOxygen Tnkfacdxoa52%10/26/2024 10:38 AM EDTInhaled Oxygen Concentration--Kkqjvd91.5 kg (118 lb)01/09/2025 11:27 AM FLXDjrwvj692.8 cm (4' 9 )01/09/2025 11:27 AM EDTBody Mass Index25.53001/09/2025 11:27 AM EDT Plan of Treatment Health MaintenanceDue DateLast MbtuNqslvycjVugzxmzdt26/26/47869208/21/2023, 08/13/2023, 07/21/2022Influenza Vaccine (#1), 03/18/2023, 03/25/2021, Additional history existsMedicare Annual Wellness (AWV)10/26/2025 10/26/2024, 06/11/2023, 2406RbdhacpsgkiMxiuefsisrai05/14/2016Colorectal Cancer ScreeningDiscontinuedPneumococcal Vaccine: 65+ OpfwsMnblmtnld91/09/2024, 04/27/2020, 01/25/2013, Additional history existsCT ColonographyDiscontinued FIT-DNADiscontinuedFITDiscontinuedFOBTDiscontinuedSigmoidoscopyDiscontinued Procedures Procedure NamePriorityDate/TimeAssociated DiagnosisCommentsXR FOOT 3+ VIEWS LEFT Ujqpevx7901/09/2025 11:13 AM EDT Left foot pain Hammer toe of left foot Metatarsal deformity, left ALL CBC WITH AUTO BFBAGesways50/26/2025 10:00 AM EDT ALL BASIC METABOLIC PTECTXvpiouh96/26/2025 10:00 AM EDT ECG 12-LEAD12/20/2024 7:53 AM EDT MM TOMOSYNTHESIS SCREENING BI08/21/2023 7:38 AM EDT from Last 3 Months or Most Recently Relevant to Health Maintenance Results * XR foot 3+ views left (01/09/2025 11:13 AM EDT)Anatomical RegionLaterality ModalityLower Extremities, FootLeftRadiographic ImagingSpecimen (Source) Anatomical Location / LateralityCollection Method / VolumeCollection Time Received Time Narrative 01/09/2025 10:23 PM EDT Imaging Result: XRAY: AP/MO/LAT: pedal radiographs demonstrate intact cortical margins and anatomic alignment. ??Joint spaces are maintained throughout the midfoot forefoot and hindfoot without evidence of acute fracture dislocation or arthropathy fusion of the left great toe fixation appears to be in alignment. ??Still able to visualize the joint space. ??Left 3rd digit has been surgically corrected appears to be a arthroplasty with a regrowth of bone in that region toe is an adductovarus position left 3rd ??there ?? appears to be contracture of the 3rd metatarsophalangeal joint Authorizing ProviderResult TypeResult StatusMarc D Dolce DPM FACFASIMG XR PROCEDURESFinal Result * (ABNORMAL) ALL CBC WITH AUTO DIFF (12/20/2024 10:00 AM EDT)ComponentValueRef RangeTest MethodAnalysis TimePerformed AtPathologist SignatureTBH WBC4.24.0 - 11.0 10 3/uLTBHTBH RBC3.91(L)4.20 - 5.40 10 6/uLTBHTBH HGB11.4(L)12.0 - 16.0 g/dLTBHTBH HCT35.9(L)36.0 - 48.0 %TBHTBH MCV91.881.0 - 99.0 fLTBHTBH MCH29.2 26.7 - 34.0 pgTBHTBH MCHC31.829.9 - 35.2 g/dLTBHTBH RDW12.611.0 - 15.0 %TBHTBH HTH742829 - 450 10 3/uLTBHTBH MPV11.09.5 - 13.5 fLTBHNEUTROPHILS PERCENT AUTO 56.343.0 - 75.0 %TBHLYMPHOCYTES PERCENT AUTO20.820.5 - 60.0 %TBHMONOCYTES PERCENT AUTO8.01.7 - 12.0 %TBHTBH EO %13.0(H)0.9 - 7.0 %TBHBASOPHILS PERCENT AUTO1.70.2 - 2.0 %TBHIMMATURE GRANULOCYTES PCT AUTO0.20.0 - 0.5 %TBH NEUTROPHILS ABSOLUTE AUTO2.41.4 - 6.5 10 3/uLTBHLYMPHOCYTES ABSOLUTE AUTO0.9 (L)1.2 - 3.8 10 3/uLTBHMONOCYTES ABSOLUTE AUTO0.30.3 - 0.8 10 3/uLTBHTBH EO # 0.60.0 - 0.7 10 3/uLTBHBASOPHILS ABSOLUTE AUTO0.10.0 - 0.1 10 3/uLTBHIMMATURE GRANULOCYTES ABS AUTO0.010.00 - 0.03 10 3/uLTBHSpecimen (Source)Anatomical Location / LateralityCollection Method / VolumeCollection TimeReceived Time 12/20/2024 10:00 AM EDT12/20/2024 10:02 AM EDT Narrative CLIN[facility]YNC - 12/20/2024 10:44 AM EDT Authorizing ProviderResult TypeResult StatusGeneric External Data Provider CLINISYNCFinal ResultPerforming OrganizationAddressCity/State/ZIP CodePhone Number [facility] * ALL BASIC METABOLIC PANEL (12/20/2024 10:00 AM EDT)ComponentValueRef RangeTest MethodAnalysis TimePerformed AtPathologist KnagwnwpdSULWEQ002045 - 145 mmol/L TBHPOTASSIUM4.73.5 - 5.1 mmol/GLFMUPXYRYYG45495 - 107 mmol/LTBHCARBON DIOXIDE 30.721.0 - 32.0 mmol/LTBHANION GAP12.4LAITLYTYOY8624 - 106 mg/dLTBHBLOOD UREA OPCBXXOY80.07.0 - 18.0 mg/dLTBHCREATININE0.640.55 - 1.02 mg/dLTBHTBH EGFR-AF [place]>60>=60 mL/min/1.73m 2TBHTBH EGFR-NON AF [place]>60>=60 mL/min/1.73m 2TBHBUN CREATININE RATIO23.2UFAGENESKA4.48.5 - 10.1 mg/dLTBHSpecimen (Source) Anatomical Location / LateralityCollection Method / VolumeCollection Time Received Time12/20/2024 10:00 AM EDT12/20/2024 10:02 AM EDT Narrative CLINISYNC - 12/20/2024 10:28 AM EDT Authorizing ProviderResult TypeResult StatusGeneric External Data Provider CLINISYNCFinal ResultPerforming OrganizationAddressCity/State/ZIP CodePhone Number CLINISYNC TBH * ECG 12-LEAD (12/20/2024 7:53 AM EDT)Anatomical RegionLateralityModalityOther Specimen (Source)Anatomical Location / LateralityCollection Method / Volume Collection TimeReceived Time12/20/2024 7:53 AM EDT Narrative 12/21/2024 3:53 PM EDT [facility] ?[address] ? [place], [place] [address] ? Electrocardiograph Report ? Signed ? Patient: JOSEPH,ELIZABETH C ?MR#: [id number] ?? : 1955 ?Acct:[id number] ?? Age/Sex: 69 / F ?ADM Date: 12/20/24 ?? Loc: PST ? Attending Dr: Mercedes Llanes D.P.M. ? Ordering Physician: Mercedes Llanes D.P.M. ?? Date of Service: 12/20/24 ?? Procedure(s): ECG 12 lead ?? Accession Number(s): [id number] ? cc: ?[facility] ? Test Date: ?2024-12-20 ?? Pat Name: ? ELIZABETH JOSEPH ? Department: ? Room: ? - ?? Gender: ? Female ? Grooving Lathe Tender: ? : ?1955 ? Requested By: MERCEDES LLANES ?? Order Number: [id number] ?Reading MD: ?? EHAB ??ELTAHAWY ? Measurements ?? Intervals ?[place] ? Rate: ? 72 ? P: ?-5 ?? PA: ? 126 ?QRS: ?15 ?? QRSD: ? 76 ? T: ?40 ?? QT: ? 363 ? QTc: ?397 ? Interpretive Statements ?? SINUS RHYTHM ?? Compared to ECG 04/29/2021 10:41:19 ?? No significant changes ?? Electronically Signed On 12-21-2024 15:53:51 EDT by EHAB ??ROBERTO ? Dictated By: ?Marco Mejia M.D. ? Signed By: ?12/21/ 1553 ? DD/DT: 12/20/ 0753 ? TD/TT: ? Top Spotter: Procedure Note Radiology, Radiologist, MD - 12/21/[address] [address] Electrocardiograph Report Signed Patient: ELIZABETH JOSEPH CMR#: [id number] : 6Acct:[id number] Age/Sex: 69 / FADM Date: 12/20/24 Loc: PST Attending Dr: Mercedes Llanes D.P.M. Ordering Physician: Mercedes Llanes D.P.M. Date of Service: 12/20/24 Procedure(s): ECG 12 lead Accession Number(s): [id number] cc: [facility] Test Date: 2024-12-20 Pat Name: ELIZABETH JOSEPH Department: Room: - Gender: Female Grooving Lathe Tender: : 1955 Requested By: MERCEDES LLANES Order Number: [id number] Reading MD: MARCO MEJIA Measurements Intervals [place] Rate: 72 P: -5 PA: 126 QRS: 15 QRSD: 76 T: 40 QT: 363 QTc: 397 Interpretive Statements SINUS RHYTHM Compared to ECG 04/29/2021 10:41:19 No significant changes Electronically Signed On 12-21-2024 15:53:51 EDT by MARCO MEJIA Dictated By: Marco Mejia M.D. Signed By:12/21/24 1553 DD/ 0753 TD/TT: Top Spotter: Authorizing ProviderResult TypeResult StatusGeneric External Data Provider CLINISYNC IMAGINGFinal Result * MM TOMOSYNTHESIS SCREENING BI (08/21/2023 7:38 AM EDT)Anatomical Region LateralityModalityOtherSpecimen (Source)Anatomical Location / Laterality Collection Method / VolumeCollection TimeReceived Time08/21/2023 7:38 AM EDT Narrative 08/21/2023 7:39 AM EDT [facility] ?[address] ? [place] [address] ? Mammography Report ? Signed ? Patient: KAYLAH,ELIZABETH Donald ?MR#: [id number] ?? : 1955 ?Acct:[id number] ?? Age/Sex: 68 / F ?ADM Date: 04/18/24 ?? Loc: MAMMO ? Attending Dr: Rosario J Aichholz TERMITE EXTERMINATOR ? Ordering Physician: Aichcharlenez,Rosario TERMITE EXTERMINATOR ?Results: ? Date of Service: 08/20/23 ?Follow Up: ? Procedure(s): MM tomosynthesis screening BI ?? Accession Number(s): [id number] ? cc: Rosario Amezquita NP ? Patient Name: ? ELIZABETH JOSEPH ? MR#: [id number] ? : 1955 ? Exam Date: 08/20/2023 ?? Ordering Doctor: MONIQUE Amezquita CNP ? RADIOLOGY REPORT ? PROCEDURE: ? MM TOMOSYNTHESIS SCREENING BI ? COMPARISON: ? MG MAMM SCREEN 3D ABDELRAHMAN CAD, 07/16/2021. ??MG MAMM SCREEN 3D ABDELRAHMAN ?? CAD, 07/21/2022. ? INDICATIONS: ? Abdelrahman Screening Mammogram ? Calculator Name ? NCI Breast Cancer Risk Assessment Tool ?? 5 Year Breast Cancer Risk ? 1.20% ?? Lifetime Breast Cancer Risk ? 4.00% ?? Personal Breast Cancer ?No ?? Personal Ovarian Cancer ? No ?? Treatments ? None ?? Family Cancers ? Father with prostate cancer at age 75. ? LOCATION: ? [facility] ? BREAST COMPOSITION: ? There are scattered areas of fibroglandular density. ? FINDINGS: ? DIAGNOSTIC CATEGORY 1--NEGATIVE. NO CHANGE FROM COMPARISON ASSESSMENT. ? Scattered benign-appearing calcifications are present. ??Scattered ?? benign-appearing lymph nodes are present. ? RIGHT BREAST: ??No significant suspicious finding. ? LEFT BREAST: ??No significant suspicious finding. ? RECOMMENDATIONS: ? ROUTINE MAMMOGRAM AND CLINICAL EVALUATION IN 12 MONTHS. ? PLEASE NOTE: ??A NORMAL MAMMOGRAM DOES NOT EXCLUDE THE POSSIBILITY OF BREAST ?? CANCER. ??A CLINICALLY SUSPICIOUS PALPABLE LUMP SHOULD BE BIOPSIED. ? Dictated by: Edi Celis MD on 08/21/2023 at 07:36 ? Approved by: Edi Celis MD on 08/21/2023 at 07:38 ? Dictated By: ?Edi Celis M.D. ? Signed By: ?08/20/17 1139 ? DD/ 0738 ? TD/TT: ? Top Spotter: Procedure Note Radiology, Radiologist, MD - 08/21/2023 [place] [address] Mammography Report Signed Patient: ELIZABETH JOSEPH CMR#: [id number] : 1955cct:[id number] Age/Sex: 68 / FADM Date: 08/13/23 Loc: MAMMO Attending Dr: Rosario Amezquita TERMITE EXTERMINATOR Ordering Physician: Rosario Amezquita NPResults: Date of Service: 08/20/23Follow Up: Procedure(s): MM tomosynthesis screening BI Accession Number(s): [id number] cc: Rosario Amezquita NP Patient Name: ELIZABETH JOSEPH MR#: [id number] : 1955 Exam Date: 08/20/2023 Ordering Doctor: MONIQUE Amezquita CERTIFIED SURGICAL TECH/FIRST ASSISTANT RADIOLOGY REPORT PROCEDURE: MM TOMOSYNTHESIS SCREENING BI COMPARISON: MG MAMM SCREEN 3D ABDELRAHMAN CAD, 07/16/2021. MG MAMM SCREEN 3DBIL CAD, 07/21/2022. INDICATIONS: Abdelrahman Screening Mammogram Calculator Name NCI Breast Cancer Risk Assessment Tool 5 Year Breast Cancer Risk 1.20% Lifetime Breast Cancer Risk 4.00% Personal Breast Cancer No Personal Ovarian Cancer No Treatments None Family Cancers Father with prostate cancer at age 75. LOCATION: [facility] BREAST COMPOSITION: There are scattered areas [...] 07:38 Dictated By: Edi Celis M.D. Signed By:08/21/2339 DD/ TD/TT: Top Spotter: Authorizing ProviderResult TypeResult StatusLisa Bia NPCLINISYNC IMAGING Final Result from Last 3 Months or Most Recently Relevant to Health Maintenance Insurance Care Teams Team MemberRelationshipSpecialtyStart DateEnd Date Rosario Amezquita NP [address] [place] [phone] PCP - [place]04/27/23 Dayton Amaya MD [address] [place] [phone] [facility] Rosario Amezquita NP [address] [place] [phone] Referring PhysicianNurse Practitioner11/12/22 Rosario Amezquita NP [address] [place] [address] Nurse PractitionerFamiSouthwell [facility]ift [facility]06/11/23
--- OUTSIDE RECORDS SUMMARY | 2025-02-22 22:10 | XMS_ITS | Encounter Summary ---
Author Organization [facility] Address [address] [place] [address] Care Team Providers Care Commercial Litigation Paralegal Name Role Phone Rosario Amezquita NP Unavailable [phone] Rosario Amezquita NP Unavailable [phone] Dayton Amaya MD Primary Care Provider [phone] Rosario Amezquita NP Unavailable [phone] Denisse Saldana LPN Unavailable Unavailable Dayton Amaya MD Primary Care Provider [phone] Encounter Details DateTypeDepartmentCare Team (Latest Contact Info)Hideexshvmo71/26/2024Clinisync Result Encounter [facility] External Department Unsolicited Rosario Amezquita NP [address] [place] [address] Social History Tobacco UseTypesPacks/DayYears UsedDateSmoking Tobacco: FormerCigarettes Smokeless Tobacco: NeverAlcohol UseStandard Drinks/WeekCommentsNever0 (1 standard drink = 0.6 oz pure alcohol)Humiliation, Afraid, Rape, and Kick questionnaireAnswerDate RecordedWithin the last year, have you been afraid of your partner or ex-partner?No06/02/2023Within the last year, have you been humiliated or emotionally abused in other ways by your partner or ex-partner?No 06/02/2023Within the last year, have you been kicked, hit, slapped, or otherwise physically hurt by your partner or ex-partner?No06/02/2023Within the last year, have you been raped or forced to have any kind of sexual activity by your part ner or ex-partner?No06/02/2023Social Connection and Isolation PanelAnswerDate RecordedIn a typical week, how many times do you talk on the phone with family, friends, or neighbors?More than three times a week06/02/2023How often do you get together with friends or relatives?Twice a week06/02/2023How often do you attend baptist or presybeterian services?Never06/02/2023o you belong to any clubs or organizations such as baptist groups, unions, fraternal or athletic groups, or school groups?No06/02/2023How often do you attend meetings of the clubs or organizations you belong to?Never06/02/2023re you , , , , never , or living with a partner?Llyhbcr7506/02/2023UDIT-C AnswerDate RecordedQ1: How often do you have a drink containing alcohol?Never 06/02/2023Q2: How many drinks containing alcohol do you have on a typical day when you are drinking?Patient does not drink06/02/2023Q3: How often do you have six or more drinks on one occasion?Never06/02/2023Overall Financial Resource Strain (CARDIA)AnswerDate RecordedHow hard is it for you to pay for the very basics like food, housing, medical care, and heating?Not hard at all06/02/2023 PHQ-2AnswerDate RecordedPatient Health Questionnaire-2 Htzsl441[facility] [place] of Occupational Health - Occupational Stress QuestionnaireAnswerDate RecordedDo you feel stress - tense, restless, nervous, or anxious, or unable to sleep at night because yourmind is troubled all the time - these days?To some heyxek3706/02/2023Exercise Vital SignAnswerDate RecordedOn average, how many days per week do you engage in moderate to strenuous exercise (like a brisk walk)?3 days06/02/2023On average, how many minutes do you engage in exercise at this level?20 min02/06/2024Hunger Vital SignAnswerDate RecordedWithin the past 12 months, you worried that your food would run out before you got the money to buy more.Never true06/02/2023Within the past 12 months, the food you bought just didn't last and you didn't have money to get more.Never true06/02/2023RAPARE - TransportationAnswerDate RecordedIn the past 12 months, has lack of transportation kept you from medical appointments or from getting medications?No 06/02/2023In the past 12 months, has lack of transportation kept you from meetings, work, or from getting things needed for daily living?No06/02/2023 Housing Stability Vital SignAnswerDate RecordedIn the last 12 months, was there a time when you were not able to pay the mortgage or rent on time?No06/02/2023In the last 12 months, how many places have you lived?In the last 12 months, was there a time when you did not have a steady place to sleep or slept in [facility] (including now)?No06/02/2023CommentsUnknownSex and Gender InformationValueDate RecordedSex Assigned at BirthNot on fileLegal SexFemale 07/09/2022 7:17 PM EDTGender IdentityNot on fileSexual OrientationNot on file documented as of this encounter Functional Status * Over the past 2 weeks, how often have you been bothered by any of the following problems?QuestionAnswerDate of AssessmentAuthorLittle interest or pleasure in doing thingsNot at all10/26/2024 10:41 AM Sil Escobar MAFeeling down, depressed, or hopelessNot at all10/26/2024 10:41 AM Sil Gonzales MAPatient Health Questionnaire-2 [id number] 10:41 AM Sil Escobar MA * QuestionAnswerDate of AssessmentAuthorTrouble falling or staying asleep, or sleeping too muchNot at all10/26/2024 10:41 AM Sil Escobar MA Feeling tired or having little energyNot at all10/26/2024 10:41 AM EDT Sil Malcolm MAPoor appetite or overeatingNot at all10/26/2024 10:41 AM Sil Escobar MAFeeling bad about yourself - or that you are a failure or have let yourself or your family downNot at all10/26/2024 10:41 AM Sil Escobar MATrouble concentrating on things, such as reading the newspaper or watching televisionNot at all10/26/2024 10:41 AM Sil Escobar, MAMoving or speaking so slowly that other people could have noticed? Or the opposite - being so fidgety or restless that you have been moving around a lot more than usual.Not at all10/26/2024 10:41 AM Sil Escobar, MAThoughts that you would be better off or hurting yourself in some wayNot at all10/26/2024 10:41 AM Sil Escobar MAPatient Health Questionnaire-9 [id number] 10:41 AM Sil Escobar MA documented as of this encounter Plan of Treatment Not on file documented as of this encounter Procedures Procedure NamePriorityDate/TimeAssociated DiagnosisCommentsMM TOMOSYNTHESIS SCREENING BI08/21/2023 7:38 AM EDT documented in this encounter Results * MM TOMOSYNTHESIS SCREENING BI (08/21/2023 7:38 AM EDT)Anatomical Region LateralityModalityOtherSpecimen (Source)Anatomical Location / Laterality Collection Method / VolumeCollection TimeReceived Time08/21/2023 7:38 AM EDT Narrative 08/21/2023 7:39 AM EDT [facility] ?[address] ? [place] [address] ? Mammography Report ? Signed ? Patient: ELIZABETH JOSEPH ?MR#: [id number] ?? : 1955 ?Acct:[id number] ?? Age/Sex: 68 / F ?ADM Date: 04/18/24 ?? Loc: MAMMO ? Attending Dr: Rosario J Aichholz SUPERVISOR SMALL APPLIANCE ASSEMBLY ? Ordering Physician: Aichcharlenez,Rosario SUPERVISOR SMALL APPLIANCE ASSEMBLY ?Results: ? Date of Service: 08/20/23 ?Follow Up: ? Procedure(s): MM tomosynthesis screening BI ?? Accession Number(s): [id number] ? cc: Rosario Amezquita SUPERVISOR SMALL APPLIANCE ASSEMBLY ? Patient Name: ? ELIZABETH JOSEPH ? MR#: [id number] ? : 1955 ? Exam Date: 08/20/2023 ?? Ordering Doctor: MONIQUE Amezquita CNP ? RADIOLOGY REPORT ? PROCEDURE: ? MM TOMOSYNTHESIS SCREENING BI ? COMPARISON: ? MG MAMM SCREEN 3D KARLOS CAD, 07/16/2021. ??MG MAMM SCREEN 3D KARLOS ?? CAD, 07/21/2022. ? INDICATIONS: ? Karlos Screening Mammogram ? Calculator Name ? NCI Breast Cancer Risk Assessment Tool ?? 5 Year Breast Cancer Risk ? 1.20% ?? Lifetime Breast Cancer Risk ? 4.00% ?? Personal Breast Cancer ?No ?? Personal Ovarian Cancer ? No ?? Treatments ? None ?? Family Cancers ? Father with prostate cancer at age 75. ? LOCATION: ? [facility] ? BREAST COMPOSITION: ? There are scattered [...] By: ?Edi Celis M.D. ? Signed By: ?04/26/24 0739 ? DD/ 0738 ? TD/TT: ? Card Feeder: Procedure Note Radiology, Radiologist, - 08/21/[address] [place] [address] Mammography Report Signed Patient: ELIZABETH JOSEPH CMR#: [id number] : 1955cct:[id number] Age/Sex: 68 / FADM Date: 08/13/23 Loc: MAMMO Attending Dr: Rosario Amezquita NP Ordering Physician: Rosario Amezquita NPResults: Date of Service: 08/20/23Follow Up: Procedure(s): MM tomosynthesis screening BI Accession Number(s): [id number] cc: Rosario Amezquita NP Patient Name: ELIZABETH JOSEPH MR#: [id number] : 1955 Exam Date: 08/20/2023 Ordering Doctor: MONIQUE Amezquita FUNCTIONAL TESTER RADIOLOGY REPORT PROCEDURE: MM TOMOSYNTHESIS SCREENING BI [...] prostate cancer at age 75. LOCATION: [facility] BREAST COMPOSITION: There are scattered areas of [...] Edi Celis M.D. Signed By:08/21/2339 DD/ TD/TT: Card Feeder: Authorizing ProviderResult TypeResult StatusLisa Bia NPCLINISYNC IMAGING Final Result documented in this encounter Visit Diagnoses Not on filedocumented in this encounter Additional Health Concerns AssessmentNoted TimePHQ-9 Depression Total Score: 1:42 PM EST documented as of this encounter Care Teams Team MemberRelationshipSpecialtyStart DateEnd Date Rosario Amezquita NP [address] [place] [address] PCP - [facility]04/27/23 Dayton Amaya MD [address] [place] [address] PCP - GeneralFamily Medicine Dayton Amaya MD [address] [place] [address] PCP - GeneralFamily Medicine01/09/25 Rosario Amezquita NP [address] [place] [phone] Referring PhysicianNurse [facility]11/12/22 Rosario Amezquita NP [address] [place] [address] Nurse PractitionerFamily Medicine06/11/23 Denisse Saldana LPN Licensed Practical NurseFamily Medicinedocumented as of this encounter
--- OUTSIDE RECORDS SUMMARY | 2025-02-22 22:10 | XMS_ITS | Patient Health Record ---
Author Organization [facility] Address [address] [place] [address], [place] [address] Care Team Providers Care Chrome Polisher Name Role Phone Jose Llanes Unavailable [phone] Allergies Allergen (clinical drug ingredient) Drug/Non Drug Allergy documented on EMR Reaction Allergy Type Onset Date Status PenicillinhivesDrug AllergyActiveSubstance with sulfonamide structure and antibacterial mechanism of action (substance)Sulfa AntibioticshivesDrug Allergy Active Reason For Referral No Information Medications Medication SIG (Take, Route, Frequency, Duration) Notes Start Date End Date Status Atorvastatin Calcium 10 MG Tablet TAKE 1 TABLET BY MOUTH EVERYDAY AT BEDTIME Oral; Duration: 90 Days ActiveFLUoxetine HCl 10 MG CapsuleOral; Duration: 90 DaysActiveMeloxicam 15 MG TabletOral; Duration: 90 DaysActiveLisinopril 2.5 MG Tablet1 tablet Orally Once a dayActiveFlexerilActiveSuboxone 8-2 MG Film1 film under the tongue and allow to dissolve Sublingual Once a dayActiveOmeprazole 40 MG Capsule Delayed Release Oral; Duration: 90 DaysActive Social History Section Notes: Former smoker. No alcohol use. Encounters Encounter Location Date Provider Diagnosis [facility] [address] [address], [place] [address] 10/13/2024 Jose Llanes Hammertoe of left foot M20.42 and Contracture of toe of left foot M20.5X2 Assessments Encounter Date Diagnosis (ICD Code) Assessment Notes Treatment Notes Treatment Clinical Notes Section Notes 10/13/2024 Hammertoe of left foot (ICD-10 - M20.42) Patient reports significant discomfort in primarily 3rd toe with minimal pain to the 4th toe secondary to rubbing. Pain is exacerbated by walking. - Xray of left foot ordered and reviewed. 3rd toe subluxation at the PIPJ. Hardware over 1st MPJ isstable and joint is fused. Mild adductovarus contractures noted of 4th & 5th toes. - Consider surgical intervention to alleviate pain. Discussed 3rd PIPJ fusion with pinning/implant,flexor tendonotomy of 4th/5th toes . - Discussed the use of spacers and silicone pads for relief. - Monitor pain levels and adjust treatment as necessary. Discussed need for preoperative clearance. Check blood flow to ensure proper healing post-surgery. - ABIs/TBIs ordered - Order preoperative clearance tests. - Check blood flow to ensure proper healing post-surgery. 5Contracture of toe of left foot (ICD-10 - M20.5X2) Plan Of Treatment No Information Insurance Providers Payer Name Payer Address Payer Phone Subscriber Number Group Number Insured Name Patient Relationship to Insured Coverage Start Date Coverage End Date [place] Alex Medicare Access Value [address] [place] [address] [id number] Jake DeniseSelf - patient is the insured Medical (General) History Medical History History ICD Code Arthritis Surgical History Surgery Date(Month/Year) Tubal Ligation [id number] MPG FusionJan 2021
--- OUTSIDE RECORDS SUMMARY | 2025-02-22 22:10 | XMS_ITS | Patient Health Record ---
Author Organization [facility] [place] Address [address] [place] [address] Care Team Providers Care Ice Hockey Coach Name Role Phone None, Unknown or Primary Care Provider Unavailab le Allergies Allergen (clinical drug ingredient) Drug/Non Drug Allergy documented on EMR Reaction Allergy Type Onset Date Status PenicillinvomitingDrug AllergyActivesulfacetamideSulfacetamidevomitingDrug AllergyActive Reason For Referral No Information Medications Medication SIG (Take, Route, Frequency, Duration) Notes Start Date End Date Status Osteo Bi-Flex Joint Shield ActiveAtorvastatin CalciumActiveFLUoxetine HClActiveMeloxicamActiveNarcan Not-TakingOmeprazoleActiveBuprenorphine HCl-Naloxone HClActiveCyclobenzaprine HClActiveFerrous SulfateActive Social History Tobacco Use: Social History Observation Description Date Details (start date - stop date) Former Smoker NA - NA Tobacco Use/Smoking Question Answer Notes Patient is a former smoker Problems Problem Type SNOMED Code ICD Code Onset Dates Problem Status W/U Status Risk Notes Problem Acquired hallux rigidus (4178516) Hallux rigidus, right foot (M20.21) Activeconfirmed Plan Of Treatment No Information Insurance Providers Payer Name Payer Address Payer Phone Subscriber Number Group Number Insured Name Patient Relationship to Insured Coverage Start Date Coverage End Date [employer]LUE DUAL ADV PRIMARY MEDICARE [address] [place] [address] [id number] Elizabeth Joseph Self - patient is the insured [place] [id number] William Josephelf - patient is the insured Medical (General) History Medical History History ICD Code Left foot pain M79.672 Tailors bunion, left M20.12 Hammertoe of right foot M20.41 Abnormal foot pulse R09.89 Opiate abuse, continuous F11.10 Bilateral foot pain 729.5 Surgical History Surgery Date(Month/Year) RIght 1st mpj fusion, correc tion of right hammertoe 2-5, exostectomy of tailor bunion 05/13/2021 tubal ligation CHOLECYSTECTOMYCOLECTOMYHospitalization History Reason Date(Month/Year) see above
--- OUTSIDE RECORDS SUMMARY | 2025-02-22 22:10 | XMS_ITS | Encounter Summary ---
Author Organization [facility] Address [address] [place] [address] Care Team Providers Care Regulator Tester Name Role Phone Dayton Amaya MD Primary Care Provider [phone] Rosario Amezquita SUPERVISOR NEWSPAPER DELIVERIES Unavailable [phone] Rosario Amezquita SUPERVISOR NEWSPAPER DELIVERIES Unavailable [phone] Dayton Amaya MD Primary Care Provider [phone] Rosario Amezquita SUPERVISOR NEWSPAPER DELIVERIES Unavailable [phone] Denisse Saldana LPN Unavailable Unavailable Dayton Amaya MD Primary Care Provider [phone] Encounter Details DateTypeDepartmentCare Team (Latest Contact Info)Xtgqsiiojjv87/07/2024Clinisync Result Encounter [facility] External Department Unsolicited Provider, Generic External Data Social History Tobacco UseTypesPacks/DayYears UsedDateSmoking Tobacco: FormerCigarettes [...] relatives?Twice a week06/02/2023How often do you attend yarsani or orthodox services?Never06/02/2023o you belong to any clubs or organizations such as yarsani groups, unions, fraDashlane or athletic groups, or school groups?No06/02/2023How often do you attend meetings of the clubs or organizations you belong to?Never06/02/2023re you , , , , never , or living with a partner?Eizyogd4006/02/2023UDIT-C AnswerDate RecordedQ1: How often do you have [...] hard at all06/02/2023 PHQ-2AnswerDate RecordedPatient Health Questionnaire-2 [id number] [facility] [place] of Occupational Health - Occupational Stress QuestionnaireAnswerDate RecordedDo you feel stress - tense, restless, nervous, or anxious, or unable to sleep at night because yourmind is troubled all the time - these days?To some pvlrbl5506/02/2023Exercise Vital SignAnswerDate RecordedOn average, how many days [...] steady place to sleep or slept in [place] (including now)?No06/02/2023CommentsUnknownSex and Gender InformationValueDate RecordedSex Assigned [...] 10:41 AM Sil Gonzales MAPatient Health Questionnaire-2 Wqwab171 10:41 AM Sil Escobar MA * QuestionAnswerDate of AssessmentAuthorTrouble falling or staying asleep, or sleeping too muchNot at all10/26/2024 10:41 AM Sil Escobar MA Feeling tired or having little energyNot at all10/26/2024 10:41 AM Sil Gonzales MAPoor appetite or overeatingNot at all10/26/2024 10:41 AM Sil Escobar MAFeeling bad about yourself - or that you are a failure or have let yourself or your family downNot at all10/26/2024 10:41 AM Sil Escobar MATrouble concentrating on things, such as reading the newspaper or watching televisionNot at all10/26/2024 10:41 AM Sil Escobar MAMoving or speaking so slowly that other people could have noticed? Or the opposite - being so fidgety or restless that you have been moving around a lot more than usual.Not at all10/26/2024 10:41 AM Sil Escobar MAThoughts that you would be better off or hurting yourself in some wayNot at all10/26/2024 10:41 AM Sil Escobar MAPatient Health Questionnaire-9 Rzfbw480 10:41 AM Sil Escobar MA * Geriatric Depression Scale (Short Version)QuestionAnswerDate of Assessment AuthorAre you basically satisfied with your life?Yes06/11/2023 1:50 PM EST Sil Malcolm MAHave you dropped many of your activities and interests? No06/11/2023 1:50 PM ESTAllenarger SilENRIQUE rodriguezo you feel that your life is empty?No06/11/2023 1:50 PM ESTSil Malcolm MADo you often get bored?No 06/11/2023 1:50 PM Sil Mancilla MAVern you in good spirits most of the time?Yes06/11/2023 1:50 PM ESTFrankirSil MAVern you afraid that something bad is going to happen to you?No06/11/2023 1:50 PM ESTHumbarger Sil MADo you feel happy most of the time?Yes06/11/2023 1:50 PM EST HummodestogerSil MADo you often feel helpless?No06/11/2023 1:50 PM EST Sil Malcolm MADo you prefer to stay at home, rather than going out and doing new things?No06/11/2023 1:50 PM Sil Mancilla MADo you feel you have more problems with memory than most?No06/11/2023 1:50 PM Sil Mancilla MADo you think it is wonderful to be alive now?Yes06/11/2023 1:50 PM Sil Mancilla MADo you feel pretty worthless the way you are now?No 06/11/2023 1:50 PM Sil Mancilla MADo you feel full of energy?Yes 06/11/2023 1:50 PM Sil Mancilla MADo you feel that your situation is hopeless?No06/11/2023 1:50 PM Sil Mancilla MADo you think that most people are better off than you are?No06/11/2023 1:50 PM Sil Mancilla MAGeriatric Depression Scale (Short Version) Hldkw653 1:50 PM EST Sil Malcolm MA documented as of this encounter Plan of Treatment Not on file documented as of this encounter Procedures Procedure NamePriorityDate/TimeAssociated DiagnosisCommentsXR FOOT RT MIN 3V 06/03/2023 1:08 PM EST documented in this encounter Results * XR FOOT RT MIN 3V (06/03/2023 1:08 PM EST)Anatomical RegionLateralityModality OtherSpecimen (Source)Anatomical Location / LateralityCollection Method / VolumeCollection TimeReceived Time06/03/2023 1:08 PM EST Narrative 06/03/2023 1:11 PM EST [facility] ?[address] ? [place] [address] ?XRay Report ? Signed ? Patient: ELIZABETH JOSEPH ?MR#: [id number] ?? : 1955 ?Acct:[id number] ?? Age/Sex: 67 / F ?ADM Date: 06/03/23 ?? Loc: RAD ? Attending Dr: Barrett Farfan D.P.M. ? Ordering Physician: Barrett Farfan D.P.M. ?? Date of Service: 06/03/23 ?? Procedure(s): XR foot RT min 3V ?? Accession Number(s): [id number] ? cc: Rosario Amezquita NP; Barrett Farfan D.P.M. ? [facility] ? [address] [facility] ? [place] [address] ? Patient Name: ?? ELIZABETH JOSEPH ? MRN: [facility]:[id number] ? date: 1955 ?Sex: F ?? Assigned Patient Location: RAD ?? Current Patient Location: RAD ?? Accession/Order Number: [id number] ?? Exam Date: 06/03/2023 ??11:09 ?Report Date: 06/03/2023 ??13:08 ? At the request of: ?? BARRETT ??TAMIKO ? Procedure: ??XR foot RT min 3V ? PROCEDURE: XR foot RT min 3V ? COMPARISON: 02/03/2023 ? HISTORY: RIGHT FOOT PAIN ? FINDINGS: ?? BONES:Stable fusion of the first metatarsal-phalangeal joint with a dorsal ?? plate and screws. Incomplete bony bridging. No acute fracture, dislocation or ?? mechanical failure. Mild degenerative changes with marginal osteophyte ?? formation. Minimal enthesopathic spurring plantar calcaneus ?? SOFT TISSUES:Negative. No visible soft tissue swelling. ?? EFFUSION:None visible. ?? OTHER: Negative. ? XR/XR foot RT min 3V ?? IMPRESSION: ? Stable first metatarsal-phalangeal joint fusion with incomplete bony bridging ? Electronically authenticated by: JOSE ??JOHANA ?? Date: 06/03/2023 ??13:08 ? Dictated By: ?Jose Vaughn M.D. ? Signed By: ?06/03/23 1311 ? DD/ 1308 ? TD/TT: ? Gear Cutting Machine Set Up Operator: Procedure Note Radiology, Radiologist, - 06/03/2023 [place] [address] XRay Report Signed Patient: ELIZABETH JOSEPH CMR#: [id number] : 6Acct:[id number] Age/Sex: 67 / FADM Date: 06/03/23 Loc: RAD Attending Dr: Barrett Farfan D.P.M. Ordering Physician: Barrett Farfan D.P.M. Date of Service: 06/03/23 Procedure(s): XR foot RT min 3V Accession Number(s): [id number] cc: Rosario Amezquita SUPERVISOR NEWSPAPER DELIVERIES; Barrett Farfan D.P.M. [address] [address] Patient Name: ELIZABETH JOSEPH MRN: [id number] date: 1955 Sex: F Assigned Patient Location: RAD Current Patient Location: RAD Accession/Order Number: [id number] Exam Date: 06/03/2023 11:09 Report Date: 06/03/2023 13:08 At the request of: BARRETT FARFAN Procedure: XR foot RT min 3V [...] M.D. Signed By:06/03/23 1311 DD/ 1308 TD/TT: Gear Cutting Machine Set Up Operator: Authorizing ProviderResult TypeResult StatusGeneric External Data Provider CLINISYNC IMAGINGFinal Result documented in this encounter Visit Diagnoses Not on filedocumented in this encounter Care Teams Team MemberRelationshipSpecialtyStart DateEnd Date Dayton Amaya MD PCP - GeneralFamily Medicine Rosario Amezquita NP [address] [place] [address] PCP - [place]04/27/23 Dayton Amaya MD [address] [place] [address] [facility] [place] Amaya MD [address] [place] [address] [facility] - [facility]01/09/25 Rosario Amezquita NP [address] [place] [address] Referring PhysicianNurse Practitioner11/12/22 Rosario Amezquita NP [address] [place] [address] Nurse PractitionerFamily Medicine06/11/23 Denisse Saldana LPN Licensed Practical NurseFamily Medicinedocumented as of this encounter
--- OUTSIDE RECORDS SUMMARY | 2025-02-22 22:10 | XMS_ITS | Patient Health Record ---
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 Name Role Phone Lesley Herndon Primary Care Provider Prema Chowdary Unavailable [phone] Haleigh Mcconnell Unavailable [phone] Kenia Sarah Unavailable [phone] Reason For Referral No Information Encounters Encounter Location Date Provider Diagnosis [facility] [address] [place] [address] 11/02/2024 Haleigh Mcconnell [facility] [place] [address] Lesley Jaxson CastilloAcute gingivitis, plaque induced K05.00 and Dental caries on pit and fissure surface penetrating into dentin K02.52[facility] [place] [address]/Fiorella Jaxson CastilloDental caries on pit and fissure surface penetrating into dentin K02.52[facility] [place] [address]/12/2024Fiorella Jaxson CastilloDental caries on pit and fissure surface penetrating into dentin K02.52[facility] [place] [address]Esther YiDental caries on pit and fissure surface penetrating into dentin K02.52 Assessments Encounter Date Diagnosis (ICD Code) Assessment Notes Treatment Notes Treatment Clinical Notes Section Notes 11/02/2024 Dental caries on pit and fissure surface penetrating into dentin (ICD-10 - K02.52) 5Acute gingivitis, plaque induced (ICD-10 - K05.00)01/02/2025Dental caries on pit and fissure surface penetrating into dentin (ICD-10 - K02.52) 4Dental caries on pit and fissure surface penetrating into dentin (ICD- 10 - K02.52)11/09/2024Dental caries on pit and fissure surface penetrating into dentin (ICD-10 - K02.52) Plan Of Treatment Next Appt Details Provider Name:Lindsay Melifernando, 05/15/2025 11:00:00 AM, [address], [place], [address], Insurance Providers Payer Name Payer Address Payer Phone Subscriber Number Group Number Insured Name Patient Relationship to Insured Coverage Start Date Coverage End Date MEDICARE CGS [address] [place] [phone] [id number] KAYLAH, DENISESelf - patient is the [id number] MEDICARE ADVANTAGEPO [address] [place] [id number], DENISESelf - patient is the [id number] COMMERCIALPO [address] [address] [place] [id number], DENISESelf - patient is the insured 2023
--- OUTSIDE RECORDS SUMMARY | 2025-02-22 22:10 | XMS_ITS | CCD ---
Author Organization [facility] CliniSyms Care Team Providers Care Regional Project Manager Name Role Phone NATASHA GONG (ACCOUNTANT CONTROLLER) Unavailable UnavailNATASHA Sherman (ACCOUNTANT CONTROLLER) Unavailable UnavailTERESA Miranda Unavailable Unavailable ALAEDEEN, ADIS Unavailable Unavailable AICHHOLZ, CLOTH WASHER BACK TENDER ROSARIO Admitting Unavailable AICHHOLZ, CLOTH WASHER BACK TENDER ROSARIO Attending Unavailable AICHHOLZ, CLOTH WASHER BACK TENDER ROSARIO Consulting Unavailable AICHHOLZ, CLOTH WASHER BACK TENDER ROSARIO Primary Care Unavailable DR ISAIAH ROJAS Consulting Unavailable AICHHOLZ, CLOTH WASHER BACK TENDER ROSARIO Admitting Unavailable AICHHOLZ, CLOTH WASHER BACK TENDER ROSARIO Attending Unavailable AICHHOLZ, CLOTH WASHER BACK TENDER ROSARIO Consulting Unavailable AICHHOLZ, CLOTH WASHER BACK TENDER ROSARIO Primary Care Unavailable AICHHOLZ, CLOTH WASHER BACK TENDER ROSARIO Admitting Unavailable AICHHOLZ, CLOTH WASHER BACK TENDER ROSARIO Consulting Unavailable AICHHOLZ, CLOTH WASHER BACK TENDER ROSARIO Attending Unavailable AICHHOLZ, CLOTH WASHER BACK TENDER ROSARIO Primary Care Unavailable DR ISAIAH ROJAS Consulting Unavailable JORDAN, JOCELINE Attending Unavailable DR ISAIAH ROJAS Consulting Unavailable JORDAN, JOCELINE Admitting Unavailable AICHHOLZ, CLOTH WASHER BACK TENDER ROSARIO Primary Care Unavailable JOCELINE ORTEGA Consulting Unavailable DR ISAIAH ROJAS Consulting Unavailable JORDAN, JOCELINE Admitting Unavailable JORDAN, JOCELINE Attending Unavailable AICHHOLZ, CLOTH WASHER BACK TENDER ROSARIO Primary Care Unavailable JORDAN, JOCELINE Consulting Unavailable DR JESSICA SAMPSON Consulting Unavailable GRABIEL, NAYE Admitting Unavailable NAYE SPAIN Attending Unavailable AICHHOLZ, CLOTH WASHER BACK TENDER ROSARIO Primary Care Unavailable DR HOLLIE MATA Consulting Unavailable CHAPIN DEJESUS Consulting Unavailable NAYE SPAIN Consulting Unavailable BRIEN JAIMES Consulting Unavailable AICHHOLZ, CLOTH WASHER BACK TENDER ROSARIO Consulting Unavailable AICHHOLZ, CLOTH WASHER BACK TENDER ROSARIO Admitting Unavailable AICHHOLZ, CLOTH WASHER BACK TENDER ROSARIO Attending Unavailable AICHHOLZ, CLOTH WASHER BACK TENDER ROSARIO Primary Care Unavailable AICHHOLZ, CLOTH WASHER BACK TENDER ROSARIO Admitting Unavailable AICHHOLZ, CLOTH WASHER BACK TENDER ROSARIO Attending Unavailable AICHHOLZ, CLOTH WASHER BACK TENDER ROSARIO Consulting Unavailable AICHHOLZ, CLOTH WASHER BACK TENDER ROSARIO Primary Care Unavailable Aichholz ACCOUNTANT CONTROLLER, Rosario Unavailable Aichholz ACCOUNTANT CONTROLLER, Rosario Unavailable Jose Luis VYAS, [place] Primary Care Provider [phone] Aichholz ACCOUNTANT CONTROLLER, Rosario Unavailable Aichholz ACCOUNTANT CONTROLLER, Rosario Unavailable Aichholz ACCOUNTANT CONTROLLER, Rosario Unavailable Aichholz ACCOUNTANT CONTROLLER, Rosario Unavailable Aichholz ACCOUNTANT CONTROLLER, Rosario Unavailable Jose Luis VYAS, [place] Primary Care Provider AICHHOLZ, ROSARIO Attending Unavailable DAYTON OZUNA Attending Unavailable AICHHOLZ, ROSARIO Attending Unavailable AICHHOLZ, ROSARIO Attending Unavailable AICHHOLZ, ROSARIO Attending Unavailable DAYTON OZUNA Referring Unavailable Aichholz ACCOUNTANT CONTROLLER, Rosario Unavailable Aichholz ACCOUNTANT CONTROLLER, Rosario Unavailable Jose Luis VYAS, [place] Primary Care Provider Aichholz ACCOUNTANT CONTROLLER, Rosario Unavailable Girdler LUMBER STACKER OPERATOR, Ardana Unavailable Unavailable Jose Luis VYAS, [place] Primary Care Provider [place] Amaya MD Primary Care Provider [phone] Allergies Allergy ClassificationReported Allergen(s)Allergy TypeDate of OnsetReaction(s) Facility (20 sources)Penicillins; Translations: [PENICILLINS]Propensity to adverse reactions to drug (disorder)70-90-9660Gbdj, Unknown, [facility] ([facility] sources)Sulfonamides (Antibiotic); Translations: [SULFA (SULFONAMIDE ANTIBIOTICS)]Propensity to adverse reactions to drug (disorder)57-50-0298PGP [facility] Repository (1 source)Sulfonamides (Antibiotic)Drug allergy (disorder)12-61-2479[facility] Repository (20 sources)SulfacetamideDrug Mwpfxpn17-03-9451OO intoleranceNOMS Healthcare (20 sources)Sulfonamides (Antibiotic)Drug Pmgefawqapp29-45-8828[place], Rash, UnknownNOMS Healthcare Medications Current Medications MedicationDrug Class(es)DatesSig (Normalized)Sig (Original)alendronic acid 70 mg oral tablet (20 sources)BisphosphonateStart: 10-10-2024 End: 05-57-1784iejulpxdulz (Fosamax) 70 MG tablet Indications: Osteoporosis, post-menopausal , Age related osteoporosis, unspecified pathological fracture presence Take 1 tablet (70 mg) by mouth every 7 (seven) days Take with a full glass of water, remain upright for at least 30 mins 12 tablet 1 10/10/2024 ActiveStart: 74-27-5906pafshfqarur (Fosamax) 70 MG tablet Indications: Osteoporosis, post-menopausal , Age related osteoporosis, unspecified pathological fracture presence Take 1 tablet (70 mg) by mouth every 7 (seven) days Take with a full glass of water, remain upright for at least 30 mins 12 tablet 1 09/25/2023 ActiveStart: 04-14-2023 End: 38-72-4205zovesykitao (Fosamax) 70 MG tablet Indications: Osteoporosis, post-menopausal (CMS/HCC) , Age related osteoporosis, unspecified pathological fracture presence (CMS/HCC) Take 1 tablet (70 mg) by mouthevery 7 (seven) days for 28 days Take with a full glass of water, remain upright for at least 30 mins 4 tablet 5 06/11/2023 07/09/2023 Activeatorvastatin 10 mg oral tablet (20 sources)HMG-CoA Reductase InhibitorStart: 09-25-2023 End: 51-79-1210ddan 1 tablet by mouth at bedtimeatorvastatin (Lipitor) 10 MG tablet Indications: Hyperlipidemia Take 1 tablet (10 mg) by mouth at bedtime 90 tablet 1 10/26/2024 01/24/2025 ActiveStart: 06-11-2023 End: 33-44-2414xbjj 1 tablet by mouth in the morningatorvastatin (Lipitor) 10 MG tablet Indications: Hyperlipidemia Take 1 tablet (10 mg) by mouth in the morning. Take 10 mg by mouth in the morning.. 90 tablet 1 06/11/2023 09/09/2023 Activebuprenorphine 8 mg / naloxone 2 mg sublingual film (20 sources)Partial Opioid Agonist, Opioid AntagonistBuprenorphine HCl-Naloxone HCl (Suboxone) 8-[address] 0.25 Film under the tongue Activecalcium carbonate 1250 mg / cholecalciferol 600 unt oral tablet (20 sources)Vitamin DStart: 46-79-8189ubdc 1 tablet by mouth at bedtimeCalcium 500 + D3 500-15 MG-MCG tablet TAKE 1 TABLET BY MOUTH IN THE MORNING AND BEFORE BEDTIME 09/15/2024 ActiveStart: 03-08-2024 End: 94-15-3785qooc 1 tablet by mouth in the morningCalcium Carb-Cholecalciferol (Calcium 500 + D3) 500-15 MG-MCG tablet Indications: Age-related osteoporosis without current pathological fracture (CMS/HCC) Take 1 tablet by mouth in the morning and 1 tablet before bedtime. 180 tablet 1 06/07/2024 09/05/2024 Active Start: 12-06-2023 End: 54-15-3939fymh 1 tablet by mouth in the morningCalcium Carb-Cholecalciferol (Calcium 500 + D3) 500-15 MG-MCG tablet Indications: Age-related osteoporosis without current pathological fracture (CMS/HCC) Take 1 tablet by mouth in the morning and 1 tablet before bedtime. 180 tablet 1 12/06/2023 03/05/2024 Active Start: 06-11-2023 End: 11-96-5579hdqd 1 tablet by mouth in the morningCalcium Carb-Cholecalciferol (Calcium 500 + D3) 500-15 MG-MCG tablet Indications: Hypocalcemia Take1 tablet by mouth in the morning and 1 tablet before bedtime. 180 tablet 1 06/11/2023 09/09/2023 Activecyclobenzaprine hydrochloride 10 mg oral tablet (20 sources)Muscle RelaxantStart: 10-26-2024 End: 21-97-9323anvy 1 tablet by mouth oncecyclobenzaprine (Flexeril) 10 MG tablet Indications: Chronic bilateral low back pain without sciatica Take 1 tablet (10 mg) by mouth every 12 (twelve) hours if needed for muscle spasms 180 tablet 1 10/26/2024 01/24/2025 ActiveStart: 02-14-2024 End: 87-22-5413gjei 1 tablet by mouth in the morning as needed for muscle spasms, then take 1 tablet by mouth at bedtime as needed for muscle spasms, then take 0.5 tablet by mouth twice daily as needed for muscle spasmscyclobenzaprine (Flexeril) 10 MG tablet Indications: Chronic bilateral low back pain without sciatica Take 1 tablet (10 mg) by mouth in the morning and 1 tablet (10 mg) before bedtime. May take 1/2 -1 pill twice a day as needed for muscle spasms. 60 tablet 3 06/28/2024 10/26/2024 Discontinued (Reorder)Start: 06-11-2023 End: 86-27-3850alai 1 tablet by mouth in the morning as needed for muscle spasms, then take 1 tablet by mouth at bedtime as needed for muscle spasms, then take 0.5 tablet by mouth twice daily as needed for muscle spasmscyclobenzaprine (Flexeril) 10 MG tablet Indications: Chronic bilateral low back pain without sciatica Take 1 tablet (10 mg) by mouth in the morning and 1 tablet (10 mg) before bedtime. May take 1/2 -1 pill twice a day as needed for muscle spasms. 60 tablet 3 06/11/2023 07/11/2023 ActiveStart: 05-25-2023 End: 14-79-2321qmsc 1 tablet by mouth three times daily as needed for muscle spasmscyclobenzaprine (Flexeril) 5 MG tablet Indications: Chronic bilateral low back pain without sciatica TAKE 1 TABLET BY MOUTH 3 TIMES A DAY NEEDED FOR MUSCLE SPASMS 90 tablet 1 05/25/2023 06/11/2023iscontinued (Cost of medication) FLUoxetine 10 mg oral capsule (20 sources)Serotonin Reuptake InhibitorStart: 01-04-2024 End: 48-18-4574tgqi 1 capsule by mouth once dailyFLUoxetine (PROzac) 10 MG capsule Indications: Anxiety Take 1 capsule (10 mg) by mouth Daily 90 capsule 1 10/26/2024 01/24/2025 ActiveStart: 06-02-2023 End: 70-67-6375uzng 1 capsule by mouth in the morningFLUoxetine (PROzac) 20 MG capsule Indications: Anxiety Take 1 capsule (20 mg) by mouth in the morning. 90 capsule 1 06/11/2023 09/09/2023 Activemeloxicam 15 mg oral tablet (20 sources)Nonsteroidal Anti-inflammatory DrugStart: 07-19-2024 End: 14-30-5689eyfh 1 tablet by mouth in the morningmeloxicam (Mobic) 15 MG tablet Indications: Chronic bilateral low back pain without sciatica Take 1 tablet (15 mg) by mouth in the morning. 90 tablet 1 10/26/2024 01/24/2025 Active Start: 01-18-2024 End: 16-32-8120gylk 1 tablet by mouth in the morningmeloxicam (Mobic) 15 MG tablet Take 15 mg by mouth in the morning. 04/14/2024 ActiveStart: 03-30-2023 End: 08-22-3161igag 1 tablet by mouth in the morningMeloxicam 15 MG tablet dispersible Indications: Chronic bilateral low back pain without sciatica Take 15 mg by mouth in the morning. 90 tablet 1 06/11/2023 09/09/2023 Active omeprazole 40 mg delayed release oral capsule (20 sources)Proton Pump InhibitorStart: 09-25-2023 End: 90-30-0051gtie 1 capsule by mouth before mealtimeomeprazole (PriLOSEC) [address] capsule Indications: Gastroesophageal reflux disease without esophagitis Take 1 capsule (40 mg) by mouth in the morning. Take before meals. 90 capsule 1 10/26/2024 01/24/2025 ActiveStart: 05-23-2023 End: 70-28-6312depx 1 capsule by mouth in the morningomeprazole (PriLOSEC) [address] capsule Indications: Gastroesophageal reflux disease without esophagitis Take 1 capsule (40 mg) by mouth in the morning. 90 capsule 1 06/11/2023 09/09/2023 Active Problems Active Problems Problem ClassificationProblemDateDocumented DateEpisodic/ChronicAcquired foot deformities (3 sources)Hammer toe; Translations: [Other hammer toe(s) (acquired), left foot] 08-64-4074ZffbzghTotdujgw foot deformities (2 sources)Hammer toe; Translations: [Other hammer toe(s) (acquired), right foot]25-85-0594DpccrtfYzrhoou disorders (20 sources)Anxiety; Translations: [Anxiety disorder, unspecified]Onset: 963424-22-2838HlsuthwKbgigqzyi of lipid metabolism (20 sources)Hyperlipidemia; Translations: [Hyperlipidemia, unspecified]Onset: 036685-40-6300UqwzjipYsrxvmxnguljtw and diverticulitis (20 sources)Diverticulosis of colon without diverticulitis; Translations: [Diverticulosis of large intestine without perforation or abscess without bleeding]Onset: 417269-72-5609PlshtigYjfbtlqnrz disorders (20 sources)Gastroesophageal reflux disease without esophagitis; Translations: [Gastro-esophageal reflux disease without esophagitis]Onset: 05-23-2023 85-09-7716EqrowvwFojv disorders (20 sources)Single episode of major depression in full remission; Translations: [Major depressive disorder, single episode, in full remission]Onset: 02-29-2024 66-84-2076ZicwnilOiohcvztwvfp (20 sources)Postmenopausal osteoporosis; Translations: [Age-related osteoporosis without current pathological fracture]Onset: 817316-77-0145DjglogmJveil acquired deformities (3 sources)Deformity of metatarsal; Translations: [Unspecified acquired deformity of left lower leg]09-29-1763PskpmjlsAwgsn connective tissue disease (2 sources)Pain in left foot; Translations: [Pain in left foot]01-09-2025 EpisodicOther connective tissue disease (2 sources)Enthesopathy of lower limb; Translations: [Other enthesopathy of right foot and ankle]60-63-3577CocjwvrlDmslx connective tissue disease (2 sources)Synovitis and tenosynovitis; Translations: [Other synovitis and tenosynovitis, right ankle and foot]22-81-2775AuqsqjqrKbmpmhyr codes; unclassified (1 source)Family history of malignant neoplasm of prostate; Translations: [FAMILY HX MALIG NEOPLASM PROSTATE]Onset: 55-80-6757WalbkvocZjyzdjcsq-related disorders (20 sources)History of opioid abuse; Translations: [Opioid abuse, in remission] Onset: 029649-33-9683PciczlsSympkmgamaxt (4 sources)CONTACT W/AND (SUSP) EXPOS COVID-19; Translations: [CONTACT W/AND (SUSP) EXPOS COVID-19]Onset: 10-23-2021 Past or Other Problems Problem ClassificationProblemDateDocumented DateEpisodic/ChronicAbdominal pain (5 sources)Generalized abdominal pain; Translations: [Epigastric pain]Onset: 32-62-7247EuttyivnTvvnoweuvp and other anemia (4 sources)Iron deficiency anemia, unspecified; Translations: [IRON DEFICIENCY ANEMIA UNSPECIFIED]Onset: 19-30-3544FkxtmnscDestmljvew and other anemia (20 sources)Iron deficiency anemia; Translations: [Iron deficiency anemia, unspecified]Onset: 717810-27-6299IiiaboysHvfwguiiy hypertension (20 sources)Essential (primary) hypertension; Translations: [Benign hypertension]Onset: 10-23-2021 Resolved: 803205-40-3772PlkdaaaFdjx and other crystal arthropathies (20 sources)Gout; Translations: [Gout, unspecified]Onset: 06-03-2023 Resolved: 443391-53-5517OpnbewaZluzu valve disorders (20 sources)Heart murmur; Translations: [Cardiac murmur, unspecified]Onset: 964383-65-2147PkzxsoyjUaockozpdg obstruction without hernia (2 sources)Other intestinal obstruction; Translations: [Unspecified intestinal obstruction, unspecified as to partial versus complete obstruction]Onset: 93-15-8876WmrwpfafQgbd disorders (20 sources)Mood disordersOnset: 06-11-2023 Resolved: Nausea and vomiting (1 source)Nausea with vomiting, unspecified; Translations: [NAUSEA WITH VOMITING UNSPECIFIED]Onset: 71-09-2901DqzsuehzLewflkwkpog deficiencies (20 sources)Vitamin deficiency; Translations: [Vitamin deficiency, unspecified] Onset: 826933-98-2142EqkekabuXkpln aftercare (1 source)Other retirement (current) drug therapy; Translations: [OTH MANAGER INVESTMENT BANKING CURRENT DRUG THERAPY]Onset: 85-70-9057VhopmzosAfmjs aftercare (1 source)custodial (current) use of aspirin; Translations: [MANAGER INVESTMENT BANKING CURRENT USE OF ASPIRIN]Onset: 44-53-6556BqdhezbhHnriz bone disease and musculoskeletal deformities (1 source)Other specified disorders of bone density and structure, unspecified thigh; Translations: [OTH D/O BONE DEN STRUCT UNS THIGH]Onset: 01-13-2022 EpisodicOther connective tissue disease (5 sources)Pain in left foot; Translations: [PAIN IN LEFT FOOT]Onset: 08-09-2021 EpisodicOther connective tissue disease (4 sources)Pain in right foot; Translations: [PAIN IN RIGHT FOOT]Onset: 74-58-7053MkjfhdlmZnwdi connective tissue disease (20 sources)Pain in bilateral legs; Translations: [Pain in right leg]Onset: 078709-08-2119OrmwuiegKunir connective tissue disease (20 sources)Nocturnal muscle cramp; Translations: [Cramp and spasm]Onset: 579792-23-1806NysnnrxeFrdky infections; including parasitic (20 sources)Infestation by Sarcoptes scabiei linden hominis; Translations: [Scabies]Onset: 08-19-2023 Resolved: 228078-11-2350GvbayltsVtfnp non-traumatic joint disorders (20 sources)Multiple joint pain; Translations: [Pain in unspecified joint]Onset: 801504-07-4481VlrlclbvAsayk nutritional; endocrine; and metabolic disorders (20 sources)Body mass index 25-29 - overweight; Translations: [Overweight]Onset: 089812-01-6501BddiczkwWpznt screening for suspected conditions (not mental disorders or infectious disease) (20 sources)Encounter for screening mammogram for malignant neoplasm of breast; Translations: [Encounter for screening for malignant neoplasm of cervix]Onset: 66-86-4055TasdhnoaOahsd upper respiratory infections (20 sources)Upper respiratory infection; Translations: [Acute upper respiratory infection, unspecified]Onset: 04-29-2023 Resolved: 114668-16-3079HwhdmlegFsmazank codes; unclassified (4 sources)Asymptomatic menopausal state; Translations: [ASYMPTOMATIC MENOPAUSAL STATE]Onset: 26-07-5427CcwptbfzRhaqatkde and history of mental health and substance abuse codes (1 source)Personal history of nicotine dependence; Translations: [PERSONAL HISTORY OF NICOTINE DEPEND]Onset: 75-53-6029OpvjvkxcZdasmrlpwhk; intervertebral disc disorders; other back problems (20 sources)Chronic low back pain; Translations: [Chronic bilateral low back pain without sciatica]Onset: 949432-39-5049XmpwhaiwFqazgggebraw (1 source)CONTACT W/AND (SUSP) EXPOS COVID-19; Translations: [CONTACT W/AND (SUSP) EXPOS COVID-19]Onset: 13-17-1549Olbyv infection (20 sources)Disease caused by 2019-nCoV; Translations: [COVID-19]Onset: 04-29-2023 Resolved: 371697-97-1067Nkzsbwzy Results Test NameValueInterpretationReference RangeFacilityXR Foot - left 3 Viewson 41-55-9647Jjrpnow Result: XRAY: AP/MO/LAT: pedal radiographs demonstrate intact [...] to be contracture of the 3rd metatarsophalangeal jointExcelsior Springs Medical Center HealthcareRadiology Study observation (narrative)[facility] HospitalECG 12-LEAD on 97-68[place]389[place], [place] [address] Electrocardiograph Report Signed Patient: SOFIE ADRIAN MR#: [id number] : 1955 Acct:[id number] Age/Sex: 69 / F ADM Date: 12/20/24 Loc: PST Attending Dr: Mercedes Cesar D.P.M. Ordering Physician: Mercedes Cesar D.P.M. Date of Service: 12/20/24 Procedure(s): ECG 12 lead Accession Number(s): [id number] cc: [facility] Test Date: 2024-12-20 Pat Name: SOFIE ADRIAN Department: Room: - Gender: Female Ice Puller: : 1955 Requested By: MERCEDES CESAR Order Number: [id number] Reading MD: MARCO HENRY Measurements Intervals [place] Rate: 72 P: -5 LA: 126 QRS: 15 QRSD: 76 T: 40 QT: 363 QTc: 397 Interpretive Statements SINUS RHYTHM Compared to ECG 04/29/2021 10:41:19 No significant changes Electronically Signed On 12-21-2024 15:53:51 EDT by MARCO HENRY Dictated By: Marco Henry M.D. Signed By: 12/21/241552 DD/ 075 TD/TT: Seafood Clerk:YESSICAadiologKate dumont, - 12/21/2024 [place] [address] Electrocardiograph Report Signed Patient: SOFIE ADRIAN MR#: [id number] : 1955 Acct:[id number] Age/Sex: 69 / F ADM Date: 12/20/24 Loc: [facility] Attending Dr: Mercedes Cesar D.P.M. Ordering Physician: Mercedes Cesar D.P.M. Date of Service: 12/20/24 Procedure(s): ECG 12 lead Accession Number(s): [id number] cc: [facility] Test Date: 2024-12-20 Pat Name: SOFIE ADRIAN Department: Room: - Gender: Female Ice Puller: : 1955 Requested By: MERCEDES CESAR Order Number: [id number] Reading MD: MARCO HENRY Measurements Intervals [place] Rate: 72 P: -5 LA: 126 QRS: 15 QRSD: 76 T: 40 QT: 363 QTc: 397 Interpretive Statements SINUS RHYTHM Compared to ECG 04/29/2021 10:41:19 No significant changes Electronically Signed On 12-21-2024 15:53:51 EDT by MARCO HENRY Dictated By: Marco Henry M.D. Signed By: 12/21/241552 DD/ 075 TD/TT: Seafood Clerk: JOANA Tierney 12-LEADOrdered By: Radiologist Radiology on 11-74-9145MYGW [employer] Work Phone: aLL BASIC METABOLIC PANELon 50-65-1410Rnwnn gap [Moles/Vol]12 mmol/LNOMS HealthcareCalcium [Mass/Vol]9.4 mg/dL8.5 - 10.1 mg/dL N[facility] HealthcareChloride [Moles/Vol]104 mmol/L98 - 107 mmol/LNOMS HealthcareCO2 [Moles/Vol]30.7 mmol/L21.0 - 32.0 mmol/LNOMS HealthcareCreatinine [Mass/Vol]0.64 mg/dL0.55 - 1.02 mg/dLNOMS HealthcareGFR/1.73 sq M.predicted CKD-EPI (S/P/Bld) [Vol rate/Area]>60>=60 mL/min/1.73m 2NOMS HealthcareGlucose [Mass/Vol]86 mg/dL74 - 106 mg/dLNOMS HealthcarePotassium [Moles/Vol]4.7 mmol/L3.5 - 5.1 mmol/LNOMS HealthcareSodium [Moles/Vol]142 mmol/L136 - 145 mmol/LNOMS HealthcareTBH EGFR- NON AF [facility]>60>=60 mL/min/1.73m 2NOMS HealthcareUrea nitrogen [Mass/Vol]15 mg/dL7.0 - 18.0 mg/dLNOMS HealthcareUrea nitrogen/Creatinine [Mass ratio]23.4 mg/mgNOMS HealthcareCLINISYNCNOMS HealthcareECG 12-LEADon 57-29-9091Nsamsobvo Study observation (narrative)NOMS HealthcareSEGMENTAL BLOOD PRESSUREon 28-47-7067GvxLoman, [place] [address] Cardiology Report Signed Patient: SOFIE ADRIAN MR#: [id number] : 1955 Acct:[id number] Age/Sex: 69 / F ADM Date: 11/16/24 Loc: CARD Attending Dr: Mercedes Cesar D.P.M. Ordering Physician: Mercedes Cesar D.P.M. Date of Service: 11/16/24 Procedure(s): CA segmental UE or LE ABDELRAHMAN Accession Number(s): [id number] cc: Rosario Amezquita ACCOUNTANT CONTROLLER; Mercedes Cesar D.P.M. [facility] Test Date: 2024-11-16 Pat Name: SOFIE ADRIAN Department: Room: - Gender: Female Ice Puller: AMADA PORTER : 1955 Requested By: MERCEDES CESAR Order Number: [id number] Reading MD: ALFREDO VALDEZ M.D. Interpretive Statements [...] 11/18/24 0813 11/18/24 0814 DD/ 1405 TD/TT: Seafood Clerk:TBHRadiology, Radiologist, - 11/18/2024 [place] [address] Cardiology Report Signed Patient: SOFIE ADRIAN MR#: [id number] : 1955 Acct:[id number] Age/Sex: 69 / F ADM Date: 11/16/24 Loc: CARD Attending Dr: Mercedes Cesar D.P.M. Ordering Physician: Mercedes Cesar D.P.M. Date of Service: 11/16/24 Procedure(s): CA segmental UE or LE ABDELRAHMAN Accession Number(s): [id number] cc: Rosario Amezquita ACCOUNTANT CONTROLLER; Mercedes Cesar D.P.M. [facility] Test Date: 2024-11-16 Pat Name: SOFIE ADRIAN Department: Room: - Gender: Female Ice Puller: AMADA PORTER : 1955 Requested By: MERCEDES CESAR Order Number: [id number] Reading MD: ALFREDO VALDEZ M.D. Interpretive Statements [...] 11/18/24 0813 11/18/24 0814 DD/ 1405 TD/TT: Seafood Clerk: JOANA BryantSEENTAL BLOOD PRESSUREOrdered By: Radiologist Radiology on 88-79-6079[facility] Work Phone: SEGMENTAL BLOOD PRESSUREon 25-84-9843Drrhmcuuj Study observation (narrative)JOANA BryantXR FOOT LT MIN 3Von 93-76-5945VdyLoman, [place] [address] XRay Report Signed Patient: SOFIE ADRIAN MR#: [id number] : 1955 Acct:[id number] Age/Sex: 69 / F ADM Date: 10/13/24 Loc: RAD Attending Dr: Mercedes Cesar D.P.M. Ordering Physician: Mercedes Cesar D.P.M. Date of Service: 10/13/24 Procedure(s): XR foot LT min 3V Accession Number(s): [id number] cc: Rosario Amezquita ACCOUNTANT CONTROLLER; Mercedes Cesar D.P.M. [place] [address] Patient Name: SOFIE ADRIAN MRN: [facility]:[id number] date: 1955 Sex: F Assigned Patient Location: RAD Current Patient Location: RAD Accession/Order Number: [id number] Exam Date: 10/13/2024 12:03 Report Date: 10/13/2024 12:08 At the request of: MERCEDES CESAR DPM Procedure: XR foot LT min 3V LEFT [...] Triplett M.D. 10/13/2024 12:08 PM Dictation Location: [place] [address] Electronically authenticated by: [id number] Y Date: 10/13/2024 12:08 Dictated By: Radha Triplett M.D. Signed By: 10/13/24 1210 DD/ 1208 TD/TT: Seafood Clerk:NANCYHRadiology, Radiologist, - 10/13/2024 [place] [address] XRay Report Signed Patient: SOFIE ADRIAN MR#: [id number] : 1955 Acct:[id number] Age/Sex: 69 / F ADM Date: 10/13/24 Loc: RAD Attending Dr: Mercedes Cesar D.P.M. Ordering Physician: Mercedes Cesar D.P.M. Date of Service: 10/13/24 Procedure(s): XR foot LT min 3V Accession Number(s): [id number] cc: Rosario Amezquita NP; Mercedes Cesar D.P.M. [place] [address] Patient Name: SOFIE ADRIAN MRN: [facility]:[id number] date: 1955 Sex: F Assigned Patient [facility]: [facility] Current [facility] Location: [facility] [facility] Accession/Order Number: [id number] Exam Date: 10/13/2024 12:03 Report Date: 10/13/2024 [...] Triplett M.D. 10/13/2024 12:08 PM Dictation Location: [place] [address] Electronically authenticated by: [id number] Y Date: 10/13/2024 12:08 Dictated By: Radha Triplett M.D. Signed By: 10/13/24 1210 DD/ 1208 TD/TT: Seafood Clerk: JOANA HealthcareRadiology Study observation (narrative)NOMS HealthcareXR FOOT LT MIN 3VOrdered By: Radiologist Radiology on 46-96-7254WHXZ Healthcare Work Phone: XR FOOT RT MIN 3Von 53-85-7012Cis[address] [address] XRay Report Signed Patient: SOFIE ADRIAN MR#: [id number] : 1955 Acct:[id number] Age/Sex: 69 / F ADM Date: 10/06/24 Loc: RAD Attending Dr: Mercedes Cesar D.P.M. Ordering Physician: Mercedes Cesar D.P.M. Date of Service: 10/06/24 Procedure(s): XR foot RT min 3V Accession Number(s): [id number] cc: Rosario Amezquita ACCOUNTANT CONTROLLER; Mercedes Cesar D.P.M. [place] [address] Patient Name: SOFIE ADRIAN MRN: [facility]:[id number] date: 1955 Sex: F Assigned [facility]: [facility] Current Patient Location: [facility] Accession/Order Number: [id number] Exam Date: 10/06/2024 15:21 Report Date: 10/06/2024 [...] Jr., D.O. 10/06/2024 3:23 PM Dictation Location: [place] [address] Electronically authenticated by: [id number] Y Date: 10/06/2024 15:23 Dictated By: Rigo Cesar M.D. Signed By: 10/06/24 1526 DD/ 152 TD/TT: Seafood Clerk:TBHRadiology, Radiologist, - 10/06/[address] [address] XRay Report Signed Patient: SOFIE ADRIAN MR#: [id number] : 1955 Acct:[id number] Age/Sex: 69 / F ADM Date: 10/06/24 Loc: RAD Attending Dr: Mercedes Cesar D.P.M. Ordering Physician: Mercedes Cesar D.P.M. Date of Service: 10/06/24 Procedure(s): XR foot RT min 3V Accession Number(s): [id number] cc: Rosario Amezquita ACCOUNTANT CONTROLLER; Mercedes Cesar D.P.M. The [address] [address] Patient Name: SOFIE ADRIAN MRN: [id number] date: 1955 Sex: F Assigned [facility]: [facility] Current Patient Location: [facility] Accession/Order Number: [id number] Exam Date: 10/06/2024 15:21 Report Date: 10/06/2024 [...] Jr., D.O. 10/06/2024 3:23 PM Dictation Location: [place] [address] Electronically authenticated by: [id number] Y Date: 10/06/2024 15:23 Dictated By: Rigo Cesar M.D. Signed By: 10/06/24 1526 DD/ 1523 TD/TT: Seafood Clerk: JOANA HealthcareRadiology Study observation (narrative)NOM[facility] HealthcareXR FOOT RT MIN 3VOrdered By: Radiologist Radiology on 62-85-9420QAYV Healthcare Work Phone: XR DEXA AXIAL SKELETONon 81-43-0835Qgg[address] [address] XRay Report Signed Patient: SOFIE ADRIAN MR#: [id number] : 1955 Acct:[id number] Age/Sex: 68 / F ADM Date: 05/26/24 Loc: RAD Attending Dr: Rosaroi Amezquita NP Ordering Physician: Rosario Amezquita NP Date of Service: 05/26/24 Procedure(s): XR DEXA axial skeleton Accession Number(s): [id number] cc: Rosario Amezquita NP [address] [address] Patient Name: SOFIE ADRIAN MRN: [id number] date: 1955 Sex: F Assigned [facility]: [facility] Current Patient Location: [facility] Accession/Order Number: [id number] Exam Date: 05/26/2024 10:00 Report Date: 05/26/2024 [...] prevention and treatment of osteoporosis. Osteoporos Int. 2021;33(10):8218-0729. doi: 10.1007/n48899-339-21267-d. Epub 2021Aug 22. Erratum in: Osteoporos Int. 2021Nov 21;: PMID: 34216976; PMCID: [id number]. Electronically authenticated by: ISAIAH ROJAS Date: 05/26/2024 12:26 Dictated By: Isaiah Rojas M.D. Signed By: 05/26/24 1228 DD/ 25 TD/TT: Seafood Clerk:TBHRadiology, Radiologist, - 05/26/2024 [place] [address] XRay Report Signed Patient: SOFIE ADRIAN MR#: [id number] : 1955 Acct:[id number] Age/Sex: 68 / F ADM Date: 05/26/24 Loc: RAD Attending Dr: Rosario Amezquita NP Ordering Physician: Rosario Amezquita NP Date of Service: 05/26/24 Procedure(s): XR DEXA axial skeleton Accession Number(s): [id number] cc: Rosario Amezquita NP [place] [id number] Patient Name: SOFIE ADRIAN MRN: [facility]:[id number] date: 1955 Sex: F Assigned [facility]: [facility] Current Patient Location: [facility] Accession/Order Number: [id number] Exam Date: 05/26/2024 10:00 Report Date: 05/26/2024 [...] prevention and treatment of osteoporosis. Osteoporos Int. 2021;33(10):8754-4825. doi: 10.1007/b46715-886-25414-c. Epub 2021Aug 22. Erratum in: Osteoporos Int. 2021Nov 21;: PMID: 54724198; PMCID: [id number]. Electronically authenticated by: ISAIAH ROJAS Date: 05/26/2024 12:26 Dictated By: Isaiah Rojas M.D. Signed By: 05/26/24 1228 DD/ 1226 TD/TT: Seafood Clerk: [facility] FOR WOMENLois HealthcareRadiology Study observation (narrative)[facility] HospitalXR DEXA AXIAL SKELETONOrdered By: Radiologist Radiology on 40-67-4983WOJGSaint Alexius Hospital Work Phone: No [facility] Informationon 97-78-1067Kgjcockrdobdab and review of laboratory resultsNormalNOMS HealthcareRapid Influenza A AgNegative Negative, IndeterminateNOWY HealthcareRapid Influenza B AgNegativeNegative, IndeterminateNOWY HealthcareNOWY HealthcareMM TOMOSYNTHESIS SCREENING BIon 68-25-3409Csr[address] [address] Mammography Report Signed Patient: SOFIE ADRIAN MR#: [id number] : 1955 Acct:[id number] Age/Sex: 68 / F ADM Date: 08/13/23 Loc: MAMMO Attending Dr: Rosario Amezquita NP Ordering Physician: Rosario Amezquita NP Results: Date of Service: 08/20/23 Follow Up: Procedure(s): MM tomosynthesis screening BI Accession Number(s): [id number] cc: Rosario Amezquita NP Patient Name: SOFIE ADRIAN MR#: [id number] : 1955 Exam Date: 08/20/2023 Ordering Doctor: MONIQUE Amezquita CNP RADIOLOGY REPORT PROCEDURE: MM TOMOSYNTHESIS SCREENING BI COMPARISON: MG MAMM SCREEN 3D ABDELRAHMAN CAD, 07/16/2021. MG MAMM SCREEN 3D ABDELRAHMAN CAD, 07/21/2022. INDICATIONS: Abdelrahman Screening Mammogram Calculator Name NCI Breast Cancer Risk Assessment Tool 5 Year Breast Cancer Risk 1.20% Lifetime Breast Cancer Risk 4.00% Personal Breast Cancer No Personal Ovarian Cancer No Treatments None Family Cancers Father with prostate cancer at age 75. LOCATION: The [facility] BREAST COMPOSITION: There are scattered areas of [...] PALPABLE LUMP SHOULD BE BIOPSIED. Dictated by: Jose Celis MD on 08/21/2023 at 07:36 Approved by: Jose Celis MD on 08/21/2023 at 07:38 Dictated By: Jose Celis M.D. Signed By: 08/21/23 0739 DD/ 0738 TD/TT: Seafood Clerk:TBHRadiology, RadiologistMD - 08/21/2023 [place] [address] Mammography Report Signed Patient: SOFIE ADRIAN MR#: [id number] : 1955 Acct:[id number] Age/Sex: 68 / F ADM Date: 08/13/23 Loc: MAMMO Attending Dr: Rosario Amezquita NP Ordering Physician: Rosario Amezquita NP Results: Date of Service: 08/20/23 Follow Up: Procedure(s): MM tomosynthesis screening BI Accession Number(s): [id number] cc: Rosario Amezquita NP Patient Name: SOFIE ADRIAN MR#: [id number] : 1955 Exam Date: 08/20/2023 Ordering Doctor: MONIQUE Amezquita CNP RADIOLOGY REPORT PROCEDURE: MM TOMOSYNTHESIS SCREENING BI COMPARISON: MG MAMM SCREEN 3D ABDELRAHMAN CAD, 07/16/2021. MG MAMM SCREEN 3D ABDELRAHMAN CAD, 07/21/2022. INDICATIONS: Abdelrahman Screening Mammogram Calculator Name NCI Breast Cancer Risk Assessment Tool 5 Year Breast Cancer Risk 1.20% Lifetime Breast Cancer Risk 4.00% Personal Breast Cancer No Personal Ovarian Cancer No Treatments None Family Cancers Father with prostate cancer at age 75. LOCATION: [facility] BREAST COMPOSITION: There are scattered areas of [...] PALPABLE LUMP SHOULD BE BIOPSIED. Dictated by: Jose Celis MD on 08/21/2023 at 07:36 Approved by: Jose Celis MD on 08/21/2023 at 07:38 Dictated By: Jose Celis M.D. Signed By: 08/21/23 0739 DD/ 0738 TD/TT: Seafood Clerk: NOMS HealthcareRadiology Study observation (narrative)NOMS HealthcareMM TOMOSYNTHESIS SCREENING BIOrdered By: Radiologist Radiology on 38-32-2704LNWB Healthcare Work Phone: XR FOOT RT MIN 3Von 22-96-[place] [address] XRay Report Signed Patient: SOFIE ADRIAN MR#: [id number] : 1955 Acct:[id number] Age/Sex: 67 / F ADM Date: 06/03/23 Loc: RAD Attending Dr: Barrett Morrison D.P.M. Ordering Physician: Barrett Morrison D.P.M. Date of Service: 06/03/23 Procedure(s): XR foot RT min 3V Accession Number(s): [id number] cc: Rosario Amezquita ACCOUNTANT CONTROLLER; Barrett Morrison D.P.M. The [place] [address] Patient Name: SOFIE ADRIAN MRN: [facility]:[id number] date: 1955 Sex: F Assigned [facility] Current Patient Location: [facility] Accession/Order Number: [id number] Exam Date: 06/03/2023 11:09 Report Date: 06/03/2023 13:08 At the request of: BARRETT MORRISON Procedure: XR foot RT min 3V PROCEDURE: [...] incomplete bony bridging Electronically authenticated by: JOSE CELIS Date: 06/03/2023 13:08 Dictated By: Jose Celis M.D. Signed By: 06/03/23 1311 DD/ 1308 TD/TT: Seafood Clerk:NANCYHRadiology, Radiologist, - 06/03/2023 [place] [address] XRay Report Signed Patient: SOFIE ADRIAN MR#: [id number] : 1955 Acct:[id number] Age/Sex: 67 / F ADM Date: 06/03/23 Loc: RAD Attending Dr: Barrett Morrison D.P.M. Ordering Physician: Barrett Morrison D.P.M. Date of Service: 06/03/23 Procedure(s): XR foot RT min 3V Accession Number(s): [id number] cc: Rosario Amezquita ACCOUNTANT CONTROLLER; Barrett Morrison D.P.M. [place] [id number] Patient Name: SOFIE ADRIAN MRN: [facility]:[id number] date: 1955 Sex: F Assigned Patient Location: [facility] Current Patient Location: RAD Accession/Order Number: [id number] Exam Date: 06/03/2023 11:09 Report Date: 06/03/2023 13:08 At the request of: BARRETT MORRISON Procedure: XR foot RT min 3V PROCEDURE: [...] incomplete bony bridging Electronically authenticated by: JOSE CELIS Date: 06/03/2023 13:08 Dictated By: Jose Celis M.D. Signed By: 06/03/23 1311 DD/ 1308 TD/TT: Seafood Clerk: NOMS HealthcareRadiology Study observation (narrative)NOMS HealthcareXR FOOT RT MIN 3VOrdered By: Radiologist Radiology on 04-74-0475JWOI [facility] Work Phone: MG MAMM SCREEN 3D ABDELRAHMAN CADon 99-87-4160UW MAMM SCREEN 3D ABDELRAHMAN CADPatient: SFOIE ADRIAN Exam Date: 07/21/2022 : 1955 Gender:F Ordering : MONIQUE AMEZQUITA CNP Admission #: [id number] Family : Order #: [id number] CLICK HERE TO VIEW EXAM RADIOLOGY REPORT PROCEDURE: MAMMOGRAM SCREENING 3D BILATERAL CAD COMPARISON: MG MAMM SCREEN 3D ABDELRAHMAN CAD, 07/16/2021. MG MAMM SCREEN ABDELRAHMAN W CAD, 04/17/2020. MG MAMM SCREEN ABDELRAHMAN W CAD, 04/04/2019. MG MAMM SCREEN ABDELRAHMAN W CAD, 07/29/2012. INDICATIONS: Screening mammography Calculator Name NCI Breast Cancer Risk Assessment Tool 5 Year Breast Cancer Risk 1.20% Lifetime Breast Cancer Risk 4.20% Personal Breast Cancer No Personal Ovarian Cancer No Treatments None Family Cancers Father with prostate cancer at age 75. LOCATION: [facility] BREAST COMPOSITION: Scattered areas fibroglandular density. FINDINGS: [...] by: Isaiah Rojas M.D. on 07/21/2022 at 12:20NoFairfield Medical CenterCovid-19 PCR (CVDTBH)on 20-02-4569OXIE-CoV-2 (COVID-19) RNA BOBO+probe Ql (Unsp spec)Not detectedNormalNOT DETECTEDThe [facility] Hospital ToledoComment on above: Result Comment: This test is not yet approved or cleared by the [place] FDA. When there are no FDA-approved or cleared tests available, and other criteria are met, FDA can make tests available under an emergency access mechanism called an Emergency Use Authorization (EUA). The EUA for this test is supported by the [place] of Health and Human Service's (HHS's) declaration [...] of clinical signs and symptoms consistent with SARS-CoV-2.Performed By: #### CVDTBH ####[facility] Fqzbckxy[address] [place], [place] [address]Dr. Rashida Alvarado ACOG PANEL 2: 30 to 65on 01-14-2022..NormalMiddletown HospitalComment on above:Performed By: #### [id number] ####[place] [address]Dr. Rashida Celeste Gdln ACOG TestingComMercy Health Fairfield Hospital Comment on above:Result Comment: <21 or >65 or no age providedPerformed By: #### [id number] ####[place] [address]DrDallas CarcamoDIAGNOSIS:CommentUniversity Hospitals Conneaut Medical Center on above:Result Comment: NEGATIVE FOR INTRAEPITHELIAL LESION OR MALIGNANCY. CELLULAR CHANGES ASSOCIATED WITH ATROPHY ARE PRESENT. THIS SPECIMEN WAS RESCREENED PART OF OUR PICK UP DRIVER PROGRAM.Performed By: #### [id number] ####[place] [address]Dr. Rashida CarcamoMethodology:CommentUniversity Hospitals Conneaut Medical Center on above:Result Comment: This liquid based ThinPrep(R) pap test was screened with the use of an image guided system.Performed By: #### [id number] ####[place] [address]DrDallas CarcamoNote:Comment [facility] on above:Result Comment: The Pap smear is a screening test designed to aid in the detection of premalignant and malignant conditions of the uterine cervix. It is not a diagnostic procedure and should not be used as the sole means of detecting cervical cancer. Both false-positive and false-negative reports do occur. .Performed By: #### [id number] ####[facility] Kw[address] [place], [place] [address]DrDallas CarcamoPerformed by:CommentUniversity Hospitals Conneaut Medical Center on above:Result Comment: Sukumar Peraza, Contract Designer (ASCP) Performed By: #### [id number] ####[facility] [address]figa[address] [place] [address]DrDallas Palacios reviewed by:GracielaUniversity Hospitals Conneaut Medical Center on above:Result Comment: Shaila Mujica, Supervisory Contract Designer (ASCP)Performed By: #### [id number] ####[facility] [address]or[address] [place], [place] [address]Dr. Rashida CarcamoSpecimen adequacy:CommentUniversity Hospitals Conneaut Medical Center on above:Result Comment: Satisfactory for evaluation. Endocervical component may not be distinguished in cases of atrophy.Performed By: #### [id number] ####[facility] Farbdefpmn[address] [place], [place] [address]Dr. Rashida CarcamoXR DEXA BONE DENSITYon 94-03-3438IN DEXA BONE DENSITYEXAMINATION: XR DEXA BONE DENSITY, 01/09/2022 10:30 AM [...] Electronically authenticated by: ISAIAH ROJAS Date: 2022-01-09 10:53[facility] W MANUAL DIFFon 68-86-4117DSRVHDFJ LYMPH #NormalThe [facility] on above:Performed By: #### CBCMAN ####[facility] [address]sg[address]za[address] [place] [address]DrDallas Carcamo ATYPICAL LYMPH %NormalThe [facility] on above:Performed By: #### CBCMAN ####[facility] Cffhlkahsc[address] [place], [place] [address]Dr. Yilan ChangBAND #Normal0.0-0.3The Cumberland HospitalComment on above: Performed By: #### CBCMAN ####[facility] [address] [place] [address]Dr. Yilan ChangBAND %Normal0-5The [facility] Comment on above:Performed By: #### CBCMAN ####[facility] Dokts[address]ji[address] [place] [address]Dr. Yilan ChangBASOM #0.00 103/ulNormal 0.00-0.10The [facility] ToledoComment on above:Performed By: #### CBCMAN ####[facility] A[address]yxtxp[address] [place], [place] [address]Dr. Yilan ChangBASOM %0.0 %Critically low0.2-2.0The [facility] Hospital ToledoComment on above:Performed By: #### CBCMAN ####[facility] Uzydbonfli[address] [place], [place] [address]Dr. Yilan ChangBLAST #NormalMiddletown Hospital Comment on above:Performed By: #### CBCMAN ####[facility] F[address]ospiri[address] [place], [place] [address]Dr. Yilan ChangBLAST %NormalMiddletown HospitalComment on above:Performed By: #### CBCMAN ####[facility] D[address]obzwpczp[address] [place], [place] [address]Dr. Yilan ChangCORRECTED WBC Normal4.0-11.0The [facility] ToledoComment on above:Performed By: #### CBCMAN ####[facility] Ptgdzzdxjb[address] [place], [place] [address]Dr. Yilan ChangEOS #0.00 103/ulNormal0.00-0.70The [facility] ToledoComment on above: Performed By: #### CBCMAN ####[facility] Mkwib[address]zyzw[address] [place], [place] [address]Dr. Yilan ChangEOS%0.0 %Critically low0.9-7.0The [facility] Hospital ToledoComment on above:Performed By: #### CBCMAN ####[facility] Xitorckfyt[address] [place], [place] [address]Dr. Rashida ChangHCT 37.0 %Eeebhq98.0-48.0The [facility] Hospital ToledoComment on above:Performed By: #### CBCBONY ####[facility] V[address] [place] [address]Dr. Rashida BjaopSOC16.0 g/ufLklafs74.0-16.0The [facility] ToledoComment on above:Performed By: #### CBCBONY ####[facility] Ymslbawsdt[address] [place], [place] [address]Dr. Kenialan ChangLYMPHM #0.70 103/ulCritically low 1.20-3.80The [facility] ToledoComment on above:Performed By: #### CBCBONY ####[facility] Ejzhkauire[address] [place], [place] [address]Dr. Rashida ChangLYMPHM%25.0 %Ijsiyl40.5-60.0The [facility] ToledoComment on above: Performed By: #### CBCBONY ####[facility] Fqlwsxlvtn[address] [place], [place] [address]Dr. Rashida VydoeBRL75.4 puIxxusp30.7-34.0The [facility] ToledoComment on above:Performed By: #### CBCBONY ####[facility] Rsjtfawekj[address] [place], [place] [address]Dr. Rashida CarcamoMCHC32.4 g/dl Onlizo00.9-35.2The [facility] ToledoComment on above:Performed By: #### CBCBONY ####[facility] [address]umxjbpgm[address] [place], [place] [address]Dr. Rashida CarcamoMCV93.7 sUHxlebt24.0-99.0The [facility] ToledoComment on above: Performed By: #### CBCBONY ####[facility] Qrsdfptnpj[address] [place], [place] [address]Dr. Yilan ChangMETAMYELOCYTE #NormalThe [facility] ToledoComformerly [facility] on above:Performed By: #### CBCBONY ####[facility] I[address]yraq[address] [place], [place] [address]Dr. Yilan ChangMETAMYELOCYTE %NormalThe [facility] ToledoComment on above:Performed By: #### CBCMAN ####[facility] [address] [place] [address]Dr. Yilan ChangMONOM#0.22 103/ulCritically low0.30-0.80The [facility] ToledoComment on above:Performed By: #### CBCMAN ####[facility] Z[address]zkm[address] [place] [address]Dr. Yilan ChangMONOM%8.0 %Normal1.7-12.0The [facility] Hospital ToledoComment on above:Performed By: #### CBCMAN ####[facility] [address]thma[address] [place] [address]Dr. Yilan ChangMPV 10.8 fLNormal9.5-13.5The [facility] ToledoComment on above:Performed By: #### CBCMAN ####[facility] Zn[address] [place], [place] [address]Dr. Yilan ChangMYELOCYTE #NormalThe [facility] ToledoComment on above: Performed By: #### CBCMAN ####[facility] [address] [place] [address]Dr. Yilan ChangMYELOCYTE %NormalThe [facility] Comment on above:Performed By: #### CBCMAN ####[facility] [address]ib[address] [place] [address]Dr. Yilan ChangNRBCNormalThe [facility] ToledoComment on above:Performed By: #### CBCMAN ####[facility] Qsjpbgbnqp[address] [place] [address]Dr. Yilan QcoayTHP918 103/ul Ddhypu963-033Ght [facility] ToledoComment on above:Performed By: #### CBCMAN ####[facility] [address]oltbhxym64[address] [place] [address]Dr. Yilan ChangRBC3.95 106/ulCritically low4.20-5.40The [facility] ToledoComment on above:Performed By: #### CBCMAN ####[facility] [address]ct[address]ike[address] [place] [address]Dr. Yilan HrwhcPKV49.2 %Krzsqj78.0-15.0The [facility] ToledoComment on above:Performed By: #### CBCMAN ####[facility] [address]ox[address]ylvq[address] [place], [place] [address]Dr. Kenialan ChangSEG #1.88 103/ulNormal1.40-6.50The [facility] ToledoComment on above:Performed By: #### CBCMAN ####[facility] [address]xrgzivifw[address] [place], [place] [address]Dr. Kenialan ChangSEG %67.0 %Rkbcod98.0-75.0The [facility] ToledoComment on above:Performed By: #### CBCMAN ####[facility] Ipcqezisec[address] [place], [place] [address]Dr. Kenialan ChangWBC2.8 103/ulCritically low4.0-11.0The [facility] ToledoComment on above:Performed By: #### CBCMAN ####[facility] C[address]omrkfvc[address] [place], [place] [address]Dr. Rashida ChangCBC AUTO DIFFon 25-06-0432BDMY #0.1 103/ulNormal0.0-0.1The [facility] ToledoComment on above:Performed By: #### CBC ####[facility] Ipqrvoutum[address] [place], [place] [address]Dr.Yilan ChangBasophils/100 WBC (Bld)1.9 %Normal 0.2-2.0The [facility] ToledoComment on above:Performed By: #### CBC ####[facility] Wimgsxlykw[address] [place], [place] [address]Dr.Yilan ChangEO # 0.2 103/ulNormal0.0-0.7The [facility] ToledoComment on above:Performed By: #### CBC ####[facility] Ktimybjbrt[address] [place], [place] [address]Dr. Kenialan ChangEosinophils/100 WBC (Bld)5.6 %Normal0.9-7.0The [facility] Comment on above:Performed By: #### CBC ####[facility] Pisaqklijj[address] [place], [place] [address]Dr.Keniaflory ChangErythrocyte distribution width (RBC) [Ratio]13.6 %Sxwmga20.0-15.0The [facility] ToledoComment on above: Performed By: #### CBC ####[facility] [address]qets[address] [place] [address]Dr.Rashida ChangHematocrit (Bld) [Volume fraction]38.0 % Gkbmel86.0-48.0The [facility]umberland HospitalComment on above:Performed By: #### CBC ####[facility] [address]zwbsmestg[address] [place], [place] [address]Dr. Keniaflory ChangHemoglobin (Bld) [Mass/Vol]11.7 g/dLCritically low12.0-16.0The [facility] ToledoComment on above:Performed By: #### CBC ####[facility] Ebzkjpnysd[address] [place], [place] [address]Dr.Yilan ChangIG #0.00 10e3/ulNormal0.00-0.03The [facility] ToledoComment on above:Performed By: #### CBC ####[facility] Aw[address]ptbavo[address] [place], [place] [address]Dr. Yiflory ChangIG %0.0 %Normal0.0-0.5The [facility] ToledoComment on above:Performed By: #### CBC ####[facility] Ezcqeqktiz[address] [place], [place] [address]Dr.Yilan ChangLYMPH #0.8 103/ulCritically low1.2-3.8The [facility] ToledoComment on above:Performed By: #### CBC ####[facility] [address]hk[address] [place], [place] [address]Dr.Yilan ChangLymphocytes/100 WBC (Bld)29.3 %Qpliug42.5-60.0The [facility] ToledoComment on above:Performed By: #### CBC ####[facility] [address]qqoopitr[address] [place], [place] [address]Dr.Kenialan ChangMANUAL DIFF REQNONormalThe [facility] ToledoComment on above:Performed By: #### CBC ####[facility] [address]mveyosczo[address] [place] [address]Dr.Rashida CarcamoH (RBC) [Entitic mass]29.7 pgNormal 26.7-34.0The [facility] ToledoComment on above:Performed By: #### CBC ####[facility] [address]olnlwj[address] [place], [place] [address]Dr. Rashida CarcamoHC (RBC) [Mass/Vol]30.8 g/uMXffejd64.9-35.2The [facility] Comment on above:Performed By: #### CBC ####[facility] [address]qfzs[address] [place], [place] [address]Dr.Keniaflory CarcamoMCV (RBC) [Entitic vol]96.4 fL Grdmbf34.0-99.0The [facility] ToledoComment on above:Performed By: #### CBC ####[facility] [address] [place], [place] [address]Dr. Rashida CarcamoMONO #0.2 103/ulCritically low0.3-0.8The [facility] ToledoComment on above:Performed By: #### CBC ####[facility] [address]trttfemad[address] [place], [place] [address]Dr.Keniaflory CarcamoMonocytes/100 WBC (Bld)7.5 %Normal 1.7-12.0The [facility] ToledoComment on above:Performed By: #### CBC ####[facility] [address]tk[address] [place], [place] [address]Dr. Rashida Carlos AlbertoNEUT #1.5 103/ulNormal1.4-6.5The [facility] ToledoComment on above: Performed By: #### CBC ####[facility] [address]qj[address] [place], [place] [address]Dr.Rashida Carlos AlbertoNeutrophils/100 WBC (Bld)55.7 %Normal 43.0-75.0The [facility] ToledoComment on above:Performed By: #### CBC ####[facility] [facility] Jqasdnw[address] [place], [place] [address]Dr. Keniaflory CarcamoPlatelet mean volume (Bld) [Entitic vol]10.6 fLNormal9.5-13.5The [facility]edoComment on above:Performed By: #### CBC ####[facility] [address] [address]Dr.Rashida ItlgwFAA704 103/ul Bzufch351-061Opb [facility]edoComment on above:Performed By: #### CBC ####[facility] Iyv[address]lyij[address] [place], [place] [address]Dr. Rashida CarcamoRBC3.94 106/ulCritically low4.20-5.40The [facility] ToledoComment on above:Performed By: #### CBC ####[facility] Xy[address]ugs[address] [place], [place] [address]Dr.Rashida CarcamoWBC2.7 103/ulCritically low4.0-11.0The [facility]edoComment on above:Performed By: #### CBC ####[facility] Icdnvpclip[address] [place], [place] [address]Dr.Rashida CarcamoIRONon 37-14-4297Jcvu [Mass/Vol]85.0 ug/cHZjpfcg01.0-170.0The [facility]edoComment on above:Performed By: #### IRON ####[facility] Isbuzffsbp[address] [place], [place] [address]Dr. Keniaflory CarcamoBasic metabolic 2000 panelon 10-22-2021 Anion gap [Moles/Vol]16 mmol/LNormal9-18[facility] Rut[facility] HospitalComformerly [facility] on above:Order Comment: Specimen Type: BLOOD SPECIMEN Ordering Facility: [facility] Address: [address] [place], [place] [address]Performed By: #### 2777-1, 91905-3, 49920-4 #### [facility] CLIA [id number] [address] [place] [address] [place] AMERICACalcium [Mass/Vol]9.5 mg/dL Normal8.5-10.2CRiverside Methodist HospitalComformerly [facility] on above:Order Comment: Specimen Type: BLOOD SPECIMEN Ordering Facility: [facility] Address: [address] [place], [place] [address]Performed By: #### 2777-1, , 26300-0 #### [facility] CLIA [id number] [address] [place] [address] [place] AMERICAChloride [Moles/Vol]100 mmol/PWjixsk05-321DsluqbwliMartins Ferry Hospital on above:Order Comment: Specimen Type: BLOOD SPECIMEN Ordering Facility: [facility] Address: [address] [place], [place] [phone] By: #### 2777-1, , 09462-3 #### [facility] CLIA [id number] [address] [place] [address] [place] AMERICACO2 [Moles/Vol]29 mmol/L Mktqjv97-62HrqkueetzMartins Ferry Hospital on above:Order Comment: Specimen Type: BLOOD SPECIMEN Ordering Facility: [facility] Address: [address] [place], [place] [phone] By: #### 2777-1, , #### [facility] CLIA [id number] [address] [place] [address] [place] AMERICACreatinine [Mass/Vol]0.58 mg/dLNormal0.58-0.96[facility] on above:Order Comment: Specimen Type: BLOOD SPECIMEN Ordering Facility: [facility] Address: [address] [place] [phone] By: #### 2777-1, , #### [facility] CLIA [id number] [address] [place] [address] [place] OF AMERICAESTIMATED GLOMERULAR FILTRATION UGPI604 mL/min/1.73m???Normal>=60[facility] on above:Order Comment: Specimen Type: BLOOD SPECIMEN Ordering Facility: [facility] Address: [address] [place] [phone] Comment: Estimated Glomerular Filtration Rate (eGFR) is calculated using the 2020 CKD-EPI cre atinine equation. This equation utilizes serum creatinine, sex, and age as parameters. The creatinine assay has traceable calibration to isotope dilution- mass spectrometry. Refer to KDIGO guidelines for clinical interpretation. In patients with unstable renal function, e.g. those with acute kidney injury, the eGFR may not accurately reflect actual GFR.Performed By: #### 2777-1, 12240-9, 83980-1 #### [facility] CLIA [id number] [address] [place] [address] [place] AMERICAGlucose [Mass/Vol]90 mg/dL Soedpd71-45WliskekuyMartins Ferry Hospital on above:Order Comment: Specimen Type: BLOOD SPECIMEN Ordering Facility: [facility] Address: [address] [place], [place] [phone] Comment: The [place] Diabetes Association (ADA) provides guidance for cutoff [...] Standards of Medical Care in Diabetes 2016, [place] Diabetes Association. Diabetes Care. 2016.39(Suppl 1).Performed By: #### 2777-1, , 71408-7 #### [facility] CLIA [id number] [address] [place] [address] [place] AMERICAPotassium [Moles/Vol]3.2 mmol/LLow3.7-5.1CBrown Memorial Hospital on above:Order Comment: Specimen Type: BLOOD SPECIMEN Ordering Facility: [facility] Address: [address] [place] [phone] By: #### 2777-1, , 09657-3 #### [facility] CLIA [id number] [address] [place] [address] [place] AMERICASodium [Moles/Vol]145 mmol/L Lxmg992-822CrvgwqycuMartins Ferry Hospital on above:Order Comment: Specimen Type: BLOOD SPECIMEN Ordering Facility: [facility] Address: [address] [place], [place] [address]Performed By: #### 2777-1, 34130-3, 42942-9 #### [facility] CLIA [id number] [address] [place] [address] [place] AMERICAUrea nitrogen [Mass/Vol]6 mg/dLLow7-21[facility] on above:Order Comment: Specimen Type: BLOOD SPECIMEN Ordering Facility: [facility] Address: [address] [place], [place] [address]Performed By: #### 2777-1, 68746-2, 68013-2 #### [facility] IA [id number] [address] [place] [address] [place] AMERICACBC panel Auto (Bld)on 20-40-5949Itakspgrzvr distribution width (RBC) [Ratio]13.6 %Mrmeiv91.5-15.0 [facility] on above:Order Comment: Specimen Type: BLOOD SPECIMEN Ordering Facility: [facility] Address: [address] [place], [place] [address]Performed By: #### 34958-6 #### [facility] [place] [id number] [address] [place] [address] [place] AMERICAHematocrit (Bld) [Volume fraction]40.4 %Koxghn02.0-46.0[facility] on above:Order Comment: Specimen Type: BLOOD SPECIMEN Ordering Facility: [facility] Address: [address] [place], [place] [address]Performed By: #### 75575-2 #### [facility] CLIA [id number] [address] [place], [place] [address]Hemoglobin (Bld) [Mass/Vol] 12.9 g/bHPltaqd70.5-15.5CBrown Memorial Hospital on above:Order Comment: Specimen Type: BLOOD SPECIMEN Ordering Facility: [facility] Address: [address] [place], [place] [address]Performed By: #### 09687-1 #### [facility] CLIA [id number] [address] [place], [place] [address]H (RBC) [Entitic mass]28.7 suNattwn12.0-34.0[facility] on above:Order Comment: Specimen Type: BLOOD SPECIMEN Ordering Facility: [facility] Address: [address] [place], [place] [address]Performed By: #### 03252-2 #### [facility] CLIA [id number] [address] [place], [place] [address]MCHC (RBC) [Mass/Vol]31.9 g/mRGtntin85.5-36.0[facility] on above:Order Comment: Specimen Type: BLOOD SPECIMEN Ordering Facility: [facility] Address: [address] [place], [place] [address]Performed By: #### 56843-4 #### [facility] CLIA [id number] [address] [place], [place] [address]V (RBC) [Entitic vol]90.0 qEChtltt14.0-100.0[facility] on above:Order Comment: Specimen Type: BLOOD SPECIMEN Ordering Facility: [facility] Address: [address] [place] [address]Performed By: #### 54054-0 #### [facility] CLIA [id number] [address] [place] [address] RBC (Bld) [#/Vol] 10*3/uLNormal<0.01[facility] on above:Order Comment: Specimen Type: BLOOD SPECIMEN Ordering Facility: [facility] Address: [address] [place] [phone] By: #### 99785-5 #### [facility] CLIA [id number] [address] [place], [place] [address] [place] AMERICAPlatelet mean volume (Bld) [Entitic vol]10.8 fLNormal9.0-12.7CBrown Memorial Hospital on above: Order Comment: Specimen Type: BLOOD SPECIMEN Ordering Facility: [facility] Address: [address] [place], [place] [address]Performed By: #### 72325-6 #### [facility] CLIA [id number] [address] [place] [address] [place] AMERICAPlatelets (Bld) [#/Vol]155 10*3/zQYdfkzc029-704WgqiedupxMartins Ferry Hospital on above:Order Comment: Specimen Type: BLOOD SPECIMEN Ordering Facility: [facility] Address: [address] [place] [phone] By: #### 79078-6 #### [facility] CLIA [id number] [address] [place], [place] [address] [place] AMERICARBC (Bld) [#/Vol]4.49 10*6/uLNormal3.90-5.20[facility] on above:Order Comment: Specimen Type: BLOOD SPECIMEN Ordering Facility: [facility] Address: [address] [place] [phone] By: #### 10931-8 #### [facility] CLIA [id number] [address] [place], [place] [address] [place] AMERICAWBC (Bld) [#/Vol]2.98 10*3/uLLow3.70-11.00[facility] on above:Order Comment: Specimen Type: BLOOD SPECIMEN Ordering Facility: [facility] Address: [address] [place], [place] [phone] By: #### 43989-4 #### [facility] CLIA [id number] [address] [facility] [id number] [place], [place] [address]CNSelect Medical Specialty Hospital [facility] [id number] ID: [id number] Author: Joceline Liang MD Service: General Surgery [...] has been waiting to be transferred to [facility] since then. Since presenting to [...] was tolerating PO. She was advanced to [facility] and discharged home later that [...] PO QD SIGNATURE: Joceline Liang MD PAGER: [phone] DATE: October 22, 2021 TIME: 11:22 AMNormalMary Rutan HospitalMagnesium SerPl-mCncon 10-22-2021 Magnesium [Mass/Vol]1.6 mg/dLLow1.7-2.3CRiverside Methodist HospitalComment on above:Order Comment: Specimen Type: BLOOD SPECIMEN Ordering Facility: [facility] Address: [address] [place], [place] [address]Performed By: #### 2777-1, 08913-1, 49281-8 #### [facility] CLIA [id number] [address] [place] [address] OF AMERICAPhosphate SerPl-mCncon 49-14-6581Szcczamnq [Mass/Vol]3.0 mg/dLNormal2.7-4.8CRiverside Methodist Hospital Comment on above:Order Comment: Specimen Type: BLOOD SPECIMEN Ordering Facility: [facility] Address: [address] [place], [place] [address]Performed By: #### 2777-1, 68414-4, 85758-9 #### [facility] CLIA [id number] [address] [place] [address] [place] STATES OF AMERICAVDUVLSon 02-51-7947HSJIIY Non-Invasive Vascular Laboratory Main [place] J35 Lower Extremity Venous Duplex Bilateral/Complete Date [...] physician: Pavithra Barker MD, NOELLE, RVT Final [id number] See Link below for ImageNormalCleveland Randolph Health SMALL BOWEL SERIESon 60-17-3459UJ SMALL BOWEL SERIES* * *Final Report* * * DATE OF [...] small bowel. IMPRESSION: RESOLVING SMALL BOWEL OBSTRUCTION. Seafood Clerk: GIO Transcribe Date/Time: Oct 21 2021 2:44P Dictated by : JESSICA ADRIAN MD This examination was interpreted and the report reviewed and electronically signed by: JESSICA ADRIAN MD on Oct 21 2021 2:45PM EST [id number] Rutan HospitalCB panel Auto (Bld)on 78-06-8550Gpsqmullkku distribution width (RBC) [Ratio]14.6 %Znpxqw23.5-15.0 [facility] on above:Order Comment: Specimen Type: BLOOD SPECIMEN Ordering Facility: [facility] Address: [address] [place], [place] [address]Performed By: #### 14879-4 #### [facility] CLIA [id number] [address] [place] [address] [place] AMERICAHematocrit (Bld) [Volume fraction]33.4 %Low36.0-46.0[facility] on above:Order Comment: Specimen Type: BLOOD SPECIMEN Ordering Facility: [facility] Address: [address] [place], [place] [address]Performed By: #### 48348-7 #### [facility] CLIA [id number] [address]ETHemoglobin (Bld) [Mass/Vol] 10.4 g/dLLow11.5-15.5CBrown Memorial Hospital on above:Order Comment: Specimen Type: BLOOD SPECIMEN Ordering Facility: [facility] Address: [address] [place], [place] [address]Performed By: #### 43987-5 #### [facility] CLIA [id number] [address] [place], [place] [address]H (RBC) [Entitic mass]29.1 lmSuffza78.0-34.0[facility] on above:Order Comment: Specimen Type: BLOOD SPECIMEN Ordering Facility: [facility] Address: [address] [place], [place] [address]Performed By: #### 44861-9 #### [facility] CLIA [id number] [address] [place], [place] [address]HC (RBC) [Mass/Vol]31.1 g/uSEwpmqx82.5-36.0[facility] on above:Order Comment: Specimen Type: BLOOD SPECIMEN Ordering Facility: [facility] Address: [address] [place], [place] [address]Performed By: #### 83972-2 #### [facility] CLIA [id number] [address] [place] [address] (RBC) [Entitic vol]93.3 sQLcvhmr87.0-100.0[facility] on above:Order Comment: Specimen Type: BLOOD SPECIMEN Ordering Facility: [facility] Address: [address] [place], [place] [address]Performed By: #### 31670-6 #### [facility] CLIA [id number] [address] [place] [address] RBC (Bld) [#/Vol] 10*3/uLNormal<0.01[facility] on above:Order Comment: Specimen Type: BLOOD SPECIMEN Ordering Facility: [facility] Address: [address] [place], [place] [address]Performed By: #### 57157-9 #### [facility] CLIA [id number] [address] [place], [place] [address] [place] AMERICAPlatelet mean volume (Bld) [Entitic vol]10.7 fLNormal9.0-12.7CBrown Memorial Hospital on above: Order Comment: Specimen Type: BLOOD SPECIMEN Ordering Facility: [facility] Address: [address] [place], [place] [address]Performed By: #### 12695-3 #### [facility] CLIA [id number] [address] [place] [address] [place] AMERICAPlatelets (Bld) [#/Vol]128 10*3/cGEjw653-444VvkrdjftkMartins Ferry Hospital on above:Order Comment: Specimen Type: BLOOD SPECIMEN Ordering Facility: [facility] Address: [address] [place], [place] [address]Performed By: #### 85466-9 #### [facility] CLIA [id number] [address] [place] [address] [place] AMERICARBC (Bld) [#/Vol]3.58 10*6/uLLow3.90-5.20[facility] on above:Order Comment: Specimen Type: BLOOD SPECIMEN Ordering Facility: [facility] Address: [address] [place], [place] [address]Performed By: #### 98118-0 #### [facility] CLIA [id number] [address] [place] [address] [place] AMERICAWBC (Bld) [#/Vol]2.96 10*3/uLLow3.70-11.00[facility] on above:Order Comment: Specimen Type: BLOOD SPECIMEN Ordering Facility: [facility] Address: [address] [place], [place] [address]Performed By: #### 85850-3 #### [facility] CLIA [id number] [address] [place] [address] [place] AMERICAComprehensive metabolic 2000 panelon 70-54-5239Bfnzlvg [Mass/Vol]3.7 g/dLLow3.9-4.9CBrown Memorial Hospital on above:Order Comment: Specimen Type: BLOOD SPECIMEN Ordering Facility: [facility] Address: [address] [place], [place] [address]Performed By: #### 2777-1, , 64481-1 #### [facility] CLIA [id number] [address] [place] [address] [place] AMERICAALP [Catalytic activity/Vol] 48 U/GJtmptb18-991NxdeuyldnMartins Ferry Hospital on above:Order Comment: Specimen Type: BLOOD SPECIMEN Ordering Facility: [facility] Address: [address] [place], [place] [address]Performed By: #### 2777-1, , 96604-7 #### [facility] CLIA [id number] [address] [place] [address] [place] AMERICAALT [Catalytic activity/Vol] 11 U/LNormal7-38[facility] on above:Order Comment: Specimen Type: BLOOD SPECIMEN Ordering Facility: [facility] Address: [address] [place], [place] [address]Performed By: #### 2777-1, , 04069-1 #### [facility] CLIA [id number] [address] [place], [place] [address] [place] AMERICAAnion gap [Moles/Vol]14 mmol/LNormal9-18[facility] on above:Order Comment: Specimen Type: BLOOD SPECIMEN Ordering Facility: [facility] Address: [address] [place], [place] [phone] By: #### 2777-1, 12360-5, 11845-2 #### [facility] CLIA [id number] [address] [place], [place] [address] [place] AMERICAAST [Catalytic activity/Vol] 16 U/LLqyjmf08-02YmmvdrfqwMartins Ferry Hospital on above:Order Comment: Specimen Type: BLOOD SPECIMEN Ordering Facility[facility] Address: [address] [place], [place] [address]Performed By: #### 2777-1, 69084-1, 93780-0 #### [facility] CLIA [id number] [address] [place] [address] [place] AMERICABilirubin [Mass/Vol]0.6 mg/dLNormal0.2-1.3CBrown Memorial Hospital on above:Order Comment: Specimen Type: BLOOD SPECIMEN Ordering Facility[facility] Address: [address] [place], [place] [phone] By: #### 2777-1, 92183-3, 65227-3 #### [facility] CLIA [id number] [address] [place] [address] [place] AMERICACalcium [Mass/Vol]8.8 mg/dL Normal8.5-10.2CBrown Memorial Hospital on above:Order Comment: Specimen Type: BLOOD SPECIMEN Ordering Facility: [facility] Address: [address] [place], [place] [phone] By: #### 2777-1, 04326-2, 42429-5 #### [facility] CLIA [id number] [address] [place], [place] [address] [place] AMERICAChloride [Moles/Vol]104 mmol/PMveclr34-360EfbhnqsjgMartins Ferry Hospital on above:Order Comment: Specimen Type: BLOOD SPECIMEN Ordering Facility[facility] Address: [address] [place], [place] [phone] By: #### 2777-1, , 20715-8 #### [facility] CLIA [id number] [address] [place] [address] [place] AMERICACO2 [Moles/Vol]24 mmol/L Gwzuhx02-40EodilxeswMartins Ferry Hospital on above:Order Comment: Specimen Type: BLOOD SPECIMEN Ordering Facility: [facility] Address: [address] [place], [place] [address]Performed By: #### 2777-1, , 23463-6 #### [facility] CLIA [id number] [address] [place] [address] [place] AMERICACreatinine [Mass/Vol]0.56 mg/dLLow0.58-0.96[facility] on above:Order Comment: Specimen Type: BLOOD SPECIMEN Ordering Facility: [facility] Address: [address] [place], [place] [address]Performed By: #### 2777-1, , #### [facility] CLIA [id number] [address] [place] [address] [place] AMERICAESTIMATED GLOMERULAR FILTRATION KKYG100 mL/min/1.73m???Normal>=60[facility] on above:Order Comment: Specimen Type: BLOOD SPECIMEN Ordering Facility: [facility] Address: [address] [place], [place] [address]Result Comment: Estimated Glomerular Filtration Rate (eGFR) is calculated using the 2020 CKD-EPI cre atinine equation. This equation utilizes serum creatinine, sex, and age as parameters. The creatinine assay has traceable calibration to isotope dilution- mass spectrometry. Refer to KDIGO guidelines for clinical interpretation. In patients with unstable renal function, e.g. those with acute kidney injury, the eGFR may not accurately reflect actual GFR.Performed By: #### 2777-1, 90944-6, 00826-2 #### [facility] CLIA [id number] [address] [place] [address] [place] AMERICAGlucose [Mass/Vol]100 mg/dL Uaqf01-78CeygxukvfMartins Ferry Hospital on above:Order Comment: Specimen Type: BLOOD SPECIMEN Ordering Facility: [facility] Address: [address] [place], [place] [address]Result Comment: The [place] Diabetes Association (ADA) provides guidance for cutoff [...] Standards of Medical Care in Diabetes 2016, [place] [employer]. Diabetes Care. 2016.39(Suppl 1).Performed By: #### 2777-1, 82989-6, 23744-1 #### [facility] CLIA [id number] [address] [place] [address] [place] AMERICAPotassium [Moles/Vol]2.7 mmol/LLow3.7-5.1CBrown Memorial Hospital on above:Order Comment: Specimen Type: BLOOD SPECIMEN Ordering Facility: [facility] Address: [address] [place] [address]Performed By: #### 2777-1, , 32599-9 #### [facility] CLIA [id number] [address] [place] [address] [place] AMERICAProtein [Mass/Vol]6.0 g/dL Low6.3-8.0[facility] on above:Order Comment: Specimen Type: BLOOD SPECIMEN Ordering Facility: [facility] Address: [address] [place] [address]Performed By: #### 2777-1, , 07130-2 #### [facility] CLIA [id number] [address] [place] [address] [place] AMERICASodium [Moles/Vol]142 mmol/L Xoibjv376-888LzxvgczddMary Rutan HospitalComment on above:Order Comment: Specimen Type: BLOOD SPECIMEN Ordering Facility: [facility] Address: [address] [place], [place] [address]Performed By: #### 2777-1, , #### [facility] CLIA [id number] [address] [place] [address] [place] AMERICAUrea nitrogen [Mass/Vol]12 mg/dLNormal7-21Mary Rutan HospitalComment on above:Order Comment: Specimen Type: BLOOD SPECIMEN Ordering Facility: [facility] Address: [address] [place], [place] [address]Performed By: #### 2777-1, , #### [facility] IA [id number] [address] [place] [address] [place] AMERICALactate (Bld) [Moles/Vol]on 48-51-5919Lwzyuvc [Moles/Vol]0.5 mmol/LNormal0.5-2.2ClevelECU Health [facility] Comment on above:Order Comment: Specimen Type: BLOOD SPECIMEN Ordering Facility: [facility] Address: [address] [place] [address]Performed By: #### 2777-1, , #### [facility] [place] [id number] [address] [place] [address] [place] AMERICAMagnesium SerPl-mCncon [id number] [Mass/Vol]2.0 mg/dLNormal1.7-2.3CRiverside [facility] Comment on above:Order Comment: Specimen Type: BLOOD SPECIMEN Ordering Facility: [facility] Address: [address] [place] [address]Performed By: #### 2777-1, 92191-1, 24897-2 #### [facility] CLIA [id number] [address] [place], [place] [id number] [facility] panel Coag (PPP)on [id number] Coag (PPP) [Relative time]1.1 {INR}Normal0.9-1.3CBrown [facility] on above:Order Comment: Specimen Type: BLOOD SPECIMEN Ordering Facility: [facility] Address: [address] [place], [place] [id number] Comment: Vitamin K Antagonist (VKA) Therapeutic Range: INR 2 to 3 (Target INR of 2.5) Note: For patients treated with VKA drugs, such as warfarin, the [employer] 2012 Guideline recommends [...] Chest 2012, 141:7S-47S Nadeen RA, et al. [facility] 2017, 70: 252-289Performed By: #### 2777-1, , 19474-2 #### [facility] CLIA [id number] [address] [place] [address] [place] OF [facility] HOSPITALPT Coag (PPP) [Time]11.9 s Normal9.7-13.0[facility] on above:Order Comment: Specimen Type: BLOOD SPECIMEN Ordering Facility: [facility] Address: [address] [place] [id number] By: #### 2777-1, , 73509-4 #### [facility] CLIA [id number] [address] [place] [address] [place] OF AMERICAPhosphate SerPl-mCncon 29-87-4238Qpungqyby [Mass/Vol]2.0 mg/dLLow2.7-4.8CRiverside Methodist Hospital Comment on above:Order Comment: Specimen Type: BLOOD SPECIMEN Ordering Facility: [facility] Address: [address] [place], [place] [address]Performed By: #### 2777-1, 15371-7, 37642-4 #### [facility] CLIA [id number] [address] [place] [address] [place] VKWSNSMYYYV-EtF-0 RNA Resp Ql BOBO+probeon 68-35-7591OXLM-CoV-2 (COVID-19) RNA BOBO+probe Ql (Resp)COVID 19 RESULT: SARS-CoV-2 (Agent of COVID-19) Not Detected by RT-PCR or equivalent method. This test has been authorized by FDA under an Emergency Use Authorization (EUA). NormalMary Rutan HospitalComment on above:Performed By: #### 2777-1, , 04193-6 #### [facility] CLIA [id number] [address] [place] [address] [place] OF AMERICATYPE + SCREENon 10-20-2021 ABOANormalClevelECU Health North HospitalComment on above:Order Comment: Specimen Type: BLOOD SPECIMEN Ordering Facility: [facility] Address: [address] [place] [address]Performed By: #### TSCR #### [facility] CLIA [id number] [address] [place] [address] [place] OF AMERICAHISTORICAL AB SCR STATUS NegativeNormalCRiverside Methodist HospitalComment on above:Order Comment: Specimen Type: BLOOD SPECIMEN Ordering Facility: [facility] Address: [address] [place] [address]Performed By: #### TSCR #### [facility] CLIA [id number] [address] [place] [address] OF [facility]O HOSPITALRh Nom (Bld)NegativeNormal [facility] on above:Order Comment: Specimen Type: BLOOD SPECIMEN Ordering Facility: [facility] Address: [address] [place], [place] [address]Performed By: #### TSCR #### [facility] CLIA [id number] [address] [place] [address] OF AMERICATYPE AND SCREEN EXPIRATION 10/22/2021 23:59NormalCBrown Memorial Hospital on above:Order Comment: Specimen Type: BLOOD SPECIMEN Ordering Facility: [facility] Address: [address] [place], [place] [address]Performed By: #### TSCR #### [facility] CLIA [id number] [address] [place] [address] OF [place]EDO HOSPITALaPTT PPPon 12-67-5729uIBT Coag (PPP) [Time]26.6 uTllkuc42.0-32.4CBrown Memorial Hospital on above:Order Comment: Specimen Type: BLOOD SPECIMEN Ordering Facility: [facility] Address: [address] [place], [place] [address]Performed By: #### 2777-1, 63506-4, 26520-0 #### [facility] CLIA [id number] [address] [place] [address] OF [facility]OLEDO HOSPITALHISTORY PHYSICALon 22-51-5390XXVHVIN PHYSICALHNO ID: [id number] Author: Albania Gilmore MD Service: General Surgery [...] old female who presents as transfer from [facility] for concern for SBO. She has hx [...] has been waiting to be transferred to [facility] since then. Since presenting to [facility] hospital on day 1 of her symptomology, [...] (LIPITOR) 10 mg tablet, (more content not included)...Normal Mary Rutan HospitalXR ABDOMEN 1V SUPINEon 70-59-9647LC ABDOMEN 1V SUPINE* * *Final Report* * * DATE OF [...] Degenerative changes and dextroscoliosis of the spine. Seafood Clerk: PSCB Transcribe Date/Time: Oct 19 2021 7:02P Dictated by : JAN HOLLIDAY MD This examination was interpreted and the report reviewed and electronically signed by: JAN HOLLIDAY MD on Oct 19 2021 7:04PM EST [id number] Rutan HospitalAMYLASEon 10-18-2021 Amylase [Catalytic activity/Vol]46 U/FLeuuqo33-626Woz [facility] ToledoComment on above:Performed By: #### DAVID, CMADM, LIPA, CMP #### [facility] [address] [place] [address] Dr. Rashida Ortiz 42-30-4007GE [Catalytic activity/Vol]155 U/L Ipusjt37-636Nez [facility] ToledoComment on above:Performed By: #### DAVID, CMADM, LIPA, CMP #### [facility] [address] [place] [address] Dr. Rashida Prescott.MB [Mass/Vol]0.64 ng/mLNormal<=3.60The [facility] Comment on above:Performed By: #### DAVID, CMADM, LIPA, CMP #### [facility] [address] [place] [address] Dr. Rashida Harris<4.4Ljtmnq7.0-51.3The [facility] ToledoComment on above: Result Comment: CUT-OFF POINTS HAVE BEEN ESTABLISHED BASED ON THE FOURTH UNIVERSAL DEFINITIONS OF MYOCARDIAL INFARCTION. THE UPPER REFERENCE LIMIT (URL) OF TROPONIN, DEFINED THE 99TH PERCENTILE OF cTnI DISTRIBUTION IN A REFERENCE POPULATION, HAS BEEN CONFIRMED THE DECISION THRESHOLD FOR GA DIAGNOSIS.Performed By: #### DAVID, CMADM, LIPA, CMP #### [facility] [address] [place] [address] Dr. Rashida LalaO49 ng/mLNormal9-82The [facility] ToledoComment on above: Performed By: #### DAVID, CMADM, LIPA, CMP #### [facility] [address] [place] [address] Dr. Rashida Mane W MANUAL DIFFon 78-36-7558WFAMFTGP LYMPH #NormalThe [facility] ToledoComment on above:Performed By: #### CBCMAN #### [facility] [address] [place] [address] Dr. Rashida CarcamoATYPICAL LYMPH %NormalThe [facility] ToledoComment on above: Performed By: #### CBCMAN #### [facility] [address] [place] [address] Dr. Rashida Fatima #0.1 103/ulNormal0.0-0.3The [facility] ToledoComment on above:Performed By: #### CBCMAN #### [facility] [address] [place] [address] Dr. Rashida Fatima %1 %Normal0-5The [facility]umberland HospitalComment on above:Performed By: #### JOHN #### [facility] [address] [place] [address] Dr. Rashida Curtis #0.00 103/ulNormal0.00-0.10The [facility] HospitalComment on above:Performed By: #### JOHN #### [facility] [address] [place] [address] Dr. Rashida Curtis %0.0 %Critically low0.2-2.0The [facility] HospitalComment on above:Performed By: #### JOHN #### [facility] [address] [place] [address] Dr. Rashida Lopez #NormalThe [facility]umberland HospitalComment on above:Performed By: #### JOHN #### [facility] [address] [place] [address] Dr. Rashida Lopez %NormalThe [facility] HospitalComment on above:Performed By: #### JOHN #### [facility] [address] [place] [address] Dr. Rashida CarcamoCORRECTED WBCNormal4.0-11.0The [facility] ToledoComformerly [facility] on above: Performed By: #### JOHN #### [facility] [address] [place] [address] Dr. Rashida Vitale #0.00 103/ulNormal0.00-0.70The [facility] ToledoComment on above:Performed By: #### CBCBONY #### [facility] [address] [place] [address] Dr. Rashida Vitale%0.0 %Critically low0.9-7.0The [facility] HospitalComment on above:Performed By: #### CBCBONY #### [facility] [address] [place] [address] Dr. Rashida CarcamoHCT44.6 %Nhigpt63.0-48.0The [facility] ToledoComment on above: Performed By: #### CBCBONY #### [facility] [address] [place] [address] Dr. Rashida CarcamoHGB14.4 g/whLsehov36.0-16.0The [facility] ToledoComment on above: Performed By: #### JOHN #### [facility] [address] [place] [address] Dr. Rashida Paul #1.23 103/ulNormal1.20-3.80The [facility] ToledoComment on above:Performed By: #### JOHN #### [facility] [address] [place] [address] Dr. Rashida Paul%15.0 %Critically low20.5-60.0The [facility] ToledoComment on above:Performed By: #### JOHN #### [facility] [address] [place] [address] Dr. Rashida CarcamoMCH29.0 hnDshfka91.7-34.0The [facility] ToledoComment on above: Performed By: #### JOHN #### [facility] [address] [place] [address] Dr. Rashida HarrisonHC32.3 g/aqOftosn74.9-35.2The [facility] ToledoComment on above:Performed By: #### JOHN #### [facility] [address] [place] [address] Dr. Rashida CarcamoMCV89.9 eCOjiaun34.0-99.0The [facility] ToledoComment on above: Performed By: #### JOHN #### [facility] [address] [place] [address] Dr. Rashida BuschOCYTE #NormalThe [facility] ToledoComment on above: Performed By: #### JOHN #### [facility] [address] [place] [address] Dr. Rashida BuschOCYTE %NormalThe [facility] ToledoComment on above: Performed By: #### JOHN #### [facility] [address] [place] [address] Dr. Rashida Younger#0.25 103/ulCritically low0.30-0.80The [facility] Comment on above:Performed By: #### CBCBONY #### [facility] [address] [address] [address] Rashida Younger%3.0 %Normal1.7-12.0The [facility] ToledoComment on above: Performed By: #### JOHN #### [facility] [address] [address] [address] Rashida CarcamoMPV10.9 fLNormal9.5-13.5The [facility] ToledoComment on above: Performed By: #### CBCBONY #### [facility] [address] [address] [address] Rashida ForteOCYTE #NormalThe [facility] ToledoComment on above:Performed By: #### JOHN #### [facility] [address] [place] [address] Dr. Rashida ForteOCYTE %NormalThe [facility] ToledoComment on above:Performed By: #### JOHN #### [facility] [address] [place] [address] Dr. Rashida CarcamoNRBCNormalThe [facility] ToledoComment on above:Performed By: #### JOHN #### [facility] [address] [place] [address] Dr. Rashida CarcamoPLT172 103/ckPtccbb838-279Mkt [facility] ToledoComment on above: Performed By: #### JOHN #### [facility] [address] [place] [address] Dr. Rashida CarcamoRBC4.96 106/ulNormal4.20-5.40The [facility] ToledoComment on above:Performed By: #### JOHN #### [facility] [address] [address] [address] Rashida CarcamoRDW14.4 %Ucqovr98.0-15.0The [facility] ToledoComment on above: Performed By: #### JOHN #### [facility] [address] [place] [address] Dr. Rashida Pastor #6.64 103/ulCritically high1.40-6.50The [facility] Comment on above:Performed By: #### CBCMAN #### [facility] [address] [place], [place] [address] Dr. Rashida Pastor %81.0 %Critically high43.0-75.0The [facility] ToledoComment on above:Performed By: #### CBCMAN #### [facility] [address] [place], [place] [address] Dr. Rashida CarcamoWBC8.2 103/ulNormal4.0-11.0The [facility] ToledoComment on above: Performed By: #### CBCMAN #### [facility] [address] [place], [place] [address] Dr. Rashida CarcamoCT ABD/PELV W CONon [id number] ABD/PELV W CONEXAM: CT ABD/PELV W CON 10/18/2021 4:22 AM [...] Electronically authenticated by: BRIEN JAIMES Date: 2021-10-18 06:24[facility]FairhillCovid-19 PCR (CVDTB)on 94-10-0511NENX-CoV-2 (COVID-19) RNA BOBO+probe Ql (Unsp spec)Not detectedNormalNOT DETECTEDMiddletown Hospital Comment on above:Result Comment: When diagnostic testing is negative, the [...] for this test is supported by the [place] of Health and Human Service's declaration that circumstances exist to justify the emergency use of in vitro diagnostics for the detection and/or diagnosis of the virus that causes COVID-19. This EUA will remain in effect for the duration of the COVID-19 declaration justifying emergency of IVDs, unless it is terminated or revoked by the FDA (after which the test may no longer be used).Performed By: #### CVDTBH ####[facility] [address] [address]. Rashida Tai URINE PROFILEon 31-28-7566Yabrkyehv Ql (U)NegativeNormal NEGATIVEMiddletown HospitalComment on above:Performed By: #### ERUR #### [facility] [address] [place] [address] Dr. Rashida Lara (U)SL CLOUDYAbnormalCLEARThe [facility] ToledoComment on above:Performed By: #### ERUR #### [facility] [address] [place] [address] Dr. Rashida Perez (U)LT. YELLOWNormalYELLOWMiddletown HospitalComment on above:Performed By: #### ERUR #### [facility] [address] [place] [address] Dr. Rashida Patel micrscopic examination will be performed if indicated. NormalMiddletown HospitalComment on above:Performed By: #### ERUR #### [facility] [address] [place] [address] Dr. Rashida CarcamoGlucose Ql (U)NegativeNormalNEGATIVEMiddletown HospitalComment on above:Performed By: #### ERUR #### [facility] [address] [place] [address] Dr. Rashida CarcamoHemoglobin Ql (U)NegativeNormalNEGSamaritan Hospital Comment on above:Performed By: #### ERUR #### [facility] [address] [address] [address] Rashida CarcamoKetones Ql (U)40 mg/dlAbnormalNEGSamaritan Hospital Comment on above:Performed By: #### ERUR #### [facility] [address] [place] [address] Dr. Rashida CarcamoLEUKOCYTESNegativeNormalNEGATIVEMiddletown HospitalComment on above:Performed By: #### ERUR #### [facility] [address] [place] [address] Dr. Rashida CarcamoNitrite Ql (U)NegativeNormalNEGATIVEMiddletown HospitalComment on above:Performed By: #### ERUR #### [facility] [address] [place] [address] Dr. Rashida CarcamopH (U)8.0 [pH]Normal5-9Middletown HospitalComment on above: Performed By: #### ERUR #### [facility] [address] [place] [address] Dr. Rashida CarcamoSPEC GRAVITY1.146Cnclxh2.005-<=1.025The [facility] ToledoComment on above:Performed By: #### ERUR #### [facility] [address] [place] [address] Dr. Rashida Wang PROTEINNegativeNormalNEGATIVE/ TRACEMiddletown Hospital Comment on above:Performed By: #### ERUR #### [facility] [address] [place] [address] Dr. Rashida Lau MICRO INDNOT INDICATEDSelect [facility] Special[facility] - Cleveland-FairhillComment on above:Performed By: #### ERUR #### [facility] [address] [place] [address] Dr. Rashida Vasquezbilshaneka Qn (U)0.2 {Lorna'U}/dLNormal0.2 - 1.0The [facility] Hospitalment on above:Performed By: #### ERUR #### [facility] [address] [place] [address] Dr. Rashida CarcamoLACTATE/LACTIC ACIDon 72-21-3101Sjzznpl [Moles/Vol]1.3 mmol/L Normal0.4-1.9The [facility] ToledoComment on above:Performed By: #### LACT #### [facility] [address] [place] [address] Dr. Rashida CarcamoLIPASEon 09-56-9287Mrpaki [Catalytic activity/Vol]127.0 U/LNormal 73.0-393.0The [facility] ToledoComment on above:Performed By: #### DAVID, CMADM, LIPA, CMP #### [facility] [address] [place] [address] Dr. Rashida CarcamoPROF 14(COMP METB)on 47-75-2645Uxfchtj [Mass/Vol]4.5 g/dLNormal 3.4-5.0The [facility] on above:Performed By: #### DAVID, CMADM, LIPA, CMP #### [facility] [address] [place] [address] Dr. Rashida CarcamoAlbumin/Globulin [Mass ratio]1.2 {ratio}NormalThe [facility] on above:Performed By: #### DAVID, CMADM, LIPA, CMP #### [facility] [address] [place] [address] Dr. Rashida CarcamoALP [Catalytic activity/Vol]67 U/QSgmira43-709Jll [facility] on above:Performed By: #### DAVID, CMADM, LIPA, CMP #### [facility] [address] [place] [address] Dr. Rashida PerezT [Catalytic activity/Vol]29 U/BLwderz51-60Tdv [facility] ToledoComment on above:Performed By: #### DAVID, CMADM, LIPA, CMP #### [facility] [address] [address] [address] Rashida Phoenix gap [Moles/Vol]14.1 mmol/LNormalThe [facility] Comment on above:Performed By: #### DAVID, CMADM, LIPA, CMP #### [facility] [address] [address] [address] Rashida CarcamoAST [Catalytic activity/Vol]31 U/ZSbcimh18-20Iwh [facility] ToledoComment on above:Performed By: #### DAVID, CMADM, LIPA, CMP #### [facility] [address] [place] [address] Dr. Rashida CarcamoBilirubin [Mass/Vol]0.8 mg/dLNormal0.2-1.0[facility] Comment on above:Performed By: #### DAVID, CMADM, LIPA, CMP #### [facility] [address] [place] [address] Dr. Rashida CarcamoCalcium [Mass/Vol]10.2 mg/dLCritically high8.5-10.1The [facility] ToledoComment on above:Performed By: #### DAVID, CMADM, LIPA, CMP #### [facility] [address] [place] [address] Dr. Rashida CarcamoChloride [Moles/Vol]100 mmol/GTaodme00-326IzvMiddletown Hospital Comment on above:Performed By: #### DAVID, CMADM, LIPA, CMP #### [facility] [address] [place] [address] Dr. Rashida CarcamoCO2 [Moles/Vol]29.4 mmol/AXaliya26.0-32.0The [facility] Comment on above:Performed By: #### DAVID, CMADM, LIPA, CMP #### [facility] [address] [place] [address] Dr. Rashida CarcamoCreatinine [Mass/Vol]0.70 mg/dLNormal0.55-1.02The [facility] ToledoComment on above:Performed By: #### DAVID, CMADM, LIPA, CMP #### [facility] [address] [address] [address] Rashida DarlingGFR-AF ST LUCIAN>60Normal>=60The [facility] ToledoComment on above:Performed By: #### DAVID, CMADM, LIPA, CMP #### [facility] [address] [address] [address] Rashida DarlingGFR-NON AF ST LUCIAN>60Normal>=60The [facility] ToledoComment on above:Performed By: #### DAVID, CMADM, LIPA, CMP #### [facility] [address] [address] [address] Rashida CarcamoGlobulin (S) [Mass/Vol]3.9 g/dLNormalThe [facility] ToledoComment on above:Performed By: #### DAVID, CMADM, LIPA, CMP #### [facility] [address] [place] [address] Dr. Rashida CarcamoGlucose [Mass/Vol]164 mg/dLCritically rkjz61-708Asz [facility] ToledoComment on above:Performed By: #### DAVID, CMADM, LIPA, CMP #### [facility] [address] [address] [address] Rashida CarcamoPotassium [Moles/Vol]3.5 mmol/LNormal3.5-5.1The [facility] Comment on above:Performed By: #### DAVID, CMADM, LIPA, CMP #### [facility] [address] [address] [address] Rashida CarcamoProtein [Mass/Vol]8.4 g/dLCritically high6.4-8.2[facility] HospitalComment on above:Performed By: #### DAVID, CMADM, LIPA, CMP #### [facility] [address] [place] [address] Dr. Rashida CarcamoSodium [Moles/Vol]140 mmol/YZictrq607-645Qsj [facility] Comment on above:Performed By: #### DAVID, CMADM, LIPA, CMP #### [facility] [address] [place] [address] Dr. Rashida CarcamoUrea nitrogen [Mass/Vol]24.0 mg/dLCritically high7.0-18.0[facility] HospitalComment on above:Performed By: #### DAVID, CMADM, LIPA, CMP #### [facility] [address] [address] [address] Rashida CarcamoUrea nitrogen/Creatinine [Mass ratio]34.3 mg/mgNoFairfield Medical CenterComment on above:Performed By: #### DAVID, CMADM, LIPA, CMP #### [facility] [address] [address] [address] Rashida CarcamoXR FOOT ABDELRAHMAN MIN 3 VIEWSon 41-96-2949BF FOOT ABDELRAHMAN MIN 3 VIEWS EXAMINATION: XR FOOT ABDELRAHMAN MIN 3 VIEWS HISTORY: Pain in both [...] Electronically authenticated by: ISAIAH ROJAS Date: 2021-08-06 12:00[facility]hillCASE MANAGEMon 01-00-2391HWYJ MANAGEMHNO ID: [id number]: RAJ Marte Rnervice: Care ManagementAuthor Type: Registered Rayshawn seType: Care Mgt Progress NoteFiled: 01/13/2017 11:46 AMNote Text:MULTIDISCIPLINARY ROUNDSSERVICE DATE: 01/13/2017 ADMISSION DATE: 01/08/2017SERVICE TIME: 11:43 AM ANTICIPATED D/C DATE: 01/13/2017Problem List:ACTIVE PROBLEM LISTIron Deficiency AnemiaPud (Peptic Ulcer Disease)Carotid StenosisVertigoTachycardiaBpv (Benign Positional Vertigo)Hld (Hyperlipidaemia)Rectal BleedingExertional DyspneaEmphysema of Lung (Hcc)Alcohol AbuseStatus Post SurgerySbo (Small Bowel Obstruction) ([facility])Attendees Present at Rounds:Sound Printer: Alison ALFONSO ACMNurse Bottle And Glass Inspector: Marlena ANTHONYtaff Nurse: Laura Discussed on Rounds:Discharge [...] Level per Scoring Tool;ExhibitsIncreased Interest and Assume Responsibilityfor Patient's Own/FamilyLearning by Beginning to Look for Information and Ask Questions;PatientVerbalizes Acceptable Level of Comfort and is Able to Carry Out Activitiesof Daily LivingPain Goal Target Achievement Date: 01/15/17Safety Intervention(s) Plan: Ensure Safe Positioning;Employ Safe HandlingTechniques;Fall Risk Assessment and Prevention;Employ Safe Mobility;IDBand Patient/Family;Maintain a Safe Environment;Review Current Medicationand Medication History and Administer Medications as Ordered;Notify LIPfor Changes to Baseline StatusSafety Goals/Outcomes: Maintain Patient Safety;ExhibitsIncreased Interestand Assume Responsibility for Patient's Own/Family Learning by Beginningto Look for Information and Ask QuestionsSafety Goal Target Achievement Date: 01/15/17DOCUMENTED BY: Samanta Alford RN PATIENT NAME: Sofie AdrianDATE: January 13, 2017 : 11:43 AM CSN: [id number] [facility] [id number] ID: [id number]: Natasha ([employer] Brusher) Willner, CNPService: General SurgeryAuthor Type: Nurse Edi jaramillorType: Discharge SummariesFiled: 01/13/2017 1:38 PMNote Text:DISCHARGE SUMMARYPATIENT NAME: Sofie Adrian ADMISSION DATE: 01/08/2017MRN: [id number] DISCHARGE DATE: 01/13/2017Attending Physician: Adis Richardson for Hospitalization: abdominal painActive Problems: SBO (small bowel obstruction) ([facility])Resolved Problems: * No resolved hospital problems. *Operations During Hospitalization: Diagnostic laparoscopy and lysis ofadhesionsProcedures During Hospitalization: intubation for surgeryHospital Course:Admitted on 01/08/17 with abdominal pain, nausea and vomiting from [facility]. Evaluated by surgery and CT result was reviewed. Tak[place] the OR on 01/09/[address] Landeros for a Diagnostic laparoscopy andlysis of adhesions for small bowel obstruction related to a strangulatedhernia. Recovery went well on the regular medical floor. Pain wasadequately controlled. NGT post-op removed 01/10/17 and diet was advancedas tolerated. DVT prophylaxis with SQH and IPC stockings. Able to get ou tof bed without assistance. SARAH drain with large [...] (141 lb 6.4 oz) SpO2 95% BMI26.72 kg/a1Lcrxtmrlezm Provided to Patient:Symptoms or health problems to watch for after I leave the hospital:- Increasing abdominal pain or cskznpxl-Spijcjxq-Vymg or no urine-Fever greater than 101.5?F (38.6?C) [...] try sixsmall meals. A dietitian will provide specialinstructions if you have anileostomy. After the first [...] Alcoholic beverages, in moderation, are acceptable, butshould beavoided while using narcotics.3. Activity: Walking is encouraged, [...] the piece of paper with documented drain outputwith you to yourfollow-up appointment.-Call the office if the drain does not hold suction.-Pin the plastic tab on the SARAH drain to a hand towel placed over yourshoulder to prevent the drain from hanging down when you are showering.6. Medications: These should be taken as instructed by your surgeoninc sisi:Anti-diarrheal medications:Benefiber, Citrucel, Fibercon, Konsyl, or Metamucil.Imodium, Lomotil, [...] that worsen your function should be avoided.8. [place]: If you havestaples, these should be removed within 10-14days after [...] the symptoms are severe orpersist beyond 24 hours,you must call your surgeon for advice.-Dehydration: You should daily drink at least 8 glasses of liquids toavoid dehydration that can cause decreased urine output or dark urine.- Surgical infection: Fever, especially if associated with an ill feeling,abdominal discomfort, chills, or nausea should bereported to yoursurgeon.Wound infection: Excessive swelling, redness, drainage, or severe painaround the incision should be reported to your surgeon.10. Office visits: Follow-up appointments are usually scheduled 4-8 weeksfollowing surgery. If not arranged prior to discharge, please call yoursurgeon and set up an appointment at [phone] Medications: Discharge Medication List as of 01/13/2017 12:23 PMSTART taking these medicationsacetaminophen (TYLENOL) 325 mg tabletTake 2 tablets bymouth every 6 hours.OTC, R-0docusate sodium (COLACE) 100 mg capsuleTake 1 capsule by mouth twice daily.Print RX, Disp-30 capsule, R- 1magnesium hydroxide (MOM) 400 mg/5 mL suspensionTake 30 [...] every 6 hours as needed forWheezing/Shortness of Jocelyn ath.Historical MedFLUoxetine HCl 20 mg tabletTake 40 mg by mouth once daily.Historical MedtraMADol 50 mg tabletTake 50 mg by mouth every 6 hours as needed.Historical Medcelecoxib (CELEBREX) 200 mg capsuleTake 200 mg by mouth once daily.Historical Medmeloxicam (MOBIC) 15 mg tabletTake 15 mg by mouthonce daily.Historical MedrOPINIRole (REQUIP) 2 mg tabletTake 2 mg by mouth daily at bedtime.Historical Medatorvastatin (LIPITOR) 10 mg tabletTake 10 mg by mouth once daily.Historical MedCetirizine 10mg capTake by mouth once daily.Historical MedOmeprazole (PRILOSEC) 40 mg capsuleTake 1 capsule by mouth once daily.Print RX, Disp-30 capsule, R-4METOPROLOL TARTRATE ORALTake 50 mg by mouth twice daily .Historical MedOTC PRODUCTIndications: OSTEO-BIFLEX Takes 2 PO QDHistorical MedSTOP taking these medicationsiv contrast (radiology procedure)Comments:Reason for Stopping:enteric contrast (radiology procedure)Comments:Reason for Stopping:Future AppointmentsDate Time Provider Department Kzpbsn7201/26/2017 2:00 PM [id number], KATHRYN (ACCOUNTANT CONTROLLER) LCS726 [facility] - Office [address] [place] [address] [place] [phone] *[facility] and the flower shop*TIME OF CARE: Discharge Management: I personally spent greater than 30minutes involved in the discharge management of this patient.SIGNATURE: Natasha GONG CNP PAGER: [phone]: January 13, 2017TIME: 9:50 [facility] PRONelson [id number] UJSTIN ID: [id number]: Saida RennerRn) [place] Rodriguez: NursingAuthor Type: Registered NurseType: Nursing Progress NoteFiled: 01/13/2017 1:14 PMNote Text: Nursing Progress NotePatient Name: Sofie Donald JakeN: [id number] Location: [place] [address]/PY-VR0W-43 Daily Note:IV Heplock D/C'd. Discharge instructions reviewed with patient,statesunderstanding. RX for Colace and MOM. No further questions at this time.1313: D/C off unit via wheelchair, picking up patient.This note was completed by: Saida Rodriguez RNGuardian Hospital NURSING [facility] ID: [id number]: Carmen RennerRn) Elva Quesadaice: (none)Author Type: Registered NurseType: Nursing Progress NoteFiled: 01/13/2017 2:33 AMNote Text: Nursing Progress NotePatient Name: Wilmer AdrianMRN: [id number] Location: [place] [address]/EF-UU7Z-12 Sarah dsg changed earlier approx 2200 as saturated with serosang drainage.Gown changed. Pain controlled with toradol and tylenol and 5mg oxycodonegiven earlier. Pt declined MOM and colace as states had at least eightBMs loose today . Reports is chronic diarrhea after colon resection inpast.This note was completed by: Carmen Quesada, KADENGuardian Hospital PROGRESSon [id number] ID: [id number]: Carlos (Res) PhilipService: General SurgeryAuthor Type: ResidentType: [...] wound. Patient tolerated the procedure well.Carlos Garcia MDBaptist Medical Center South SurgeryFor any questions please contactSurgery Green Team pager [phone] weekdays.Or [phone] weeknights (6pm - 6am) and weekends.Date: 01/13/2017Time: 10:17 [facility] PROGRESSHNO ID: [id number]: Adis LanderosSer: General SurgeryAuthor Type: PhysicianType: ProgressNotesFiled: 01/13/2017 1:09 PMNote Text:General Surgery Progress NoteService Date: January 13, 2017Patient Name: Sofie AdrianMRN: [id number] and Plan: 61 year old female with SBO and omero ulated internalhernia??POD 4?s/p laparoscopic lysis of adhesions, doing well. Leukopenia?- Pain control: tylenol, PO oxy- FEN/GI: GIS diet, mIVFs- No Trujillo- VTE Prophylaxis: SQH, SCDs- Routine surgical care: IS, OOB- Dispo: Possible DC todayPlan to be discussed with Surgery Staff.Raghu Westbrook MDFor any questions please contactSurgery Green Team pager [phone] weekdays.Or [phone] weeknights (6pm - 6am) and weekends.Date: 01/13/2017Time: 7:55 AMSubjective:Interval Events: none. Pain: controlled. + bowel function. No othercomplaints.Physical Exam:BP 126/71 Pulse 65 Temp 36.6 ?C (97.9 ?F) (Oral) Resp 16 Ht 154.9cm (5' 1 ) Wt 64.1 kg (141 lb 6.4 oz) SpO2 95% BMI 26.72 kg/w9HVJSGQD/NEURO: Awake, Alert, no distressHEENT: Normocephalic, Atraumatic, sclera anictericCHEST:Unlabored breathing, hemodynamically stableABDOMEN: Soft, Non-tender, Non-Distended, Incisions clean /dry/intactEXTREMITIES: warm, well perfused, no jaundice, no cyanosis, no edemaLabs:CBC, Coags, BMP, Mg, PhosRecent Labs 8 WBC 3.27* 2.75*HB 8.8* 8.2*HCT 27.9* 25.8*PLT 135* 112*NA 138 136K 4.1 3.4*CHLOR 105 104CO2 23 23BUN 4* 10CREAT 0.54* 0.64*GLUC 111* 188*CA 8.3* 7.4*MG 1.8 1.7Liver Function, Amylase, AND LipaseLactate (mmol/L)Date Value08/08/2015 1.0Intake and Output:Date 01/12/17 0700 - 01/13/17 0659 01/13/17 07 - 01/14/17 0659Shift 5465-6808 9243-1328 2103-1040 24 Hour Total 9972-0783 6376-69624687-5525 24 Hour TotalINTAKE PO 120 120 240 PO 120 120 240 IV 1148 1148 D5 0.45%NS w/20KCL 1148 1148 Shift Total 1268 120 1388OUTPUT Urine 1200 729 626 0578 100 100 Void (ml) 1200 890 352 2477 100 100 Tubes 190 140 210 540 30 30 Drain/Tube Output (Drain/Tube Hasmukh Atkins Right Abdomen 01/09/1719Fr) 190 140 210 540 30 30 # of BMs Number of BMs 1 x 2 x 1 x 4 x ShiftTotal 1390 634 431 1447 130 130Weight (kg) 64.1 64.1 64.1 64.1 64.1 64.1 64.1 64.1Current Medications:Current hospital medications:ketorolac 15 mg injection (TORADOL) 15 mg INTRAVENOUS q 6 HoxyCODONE IR 5-10 mg tab(s) (ROXICODONE) 5-10 mg ORAL q 4 H PRNmorphine 2 mg injection 2 mg INTRAVENOUS q 4 HPRNdocusate sodium 100 mg cap(s) (COLACE) 100 mg [...] Units SUBCUTANEOUS q 12 Hmetoprolol tartrate (short acting)12.5 mg tab(s) (LOPRESSOR) 12.5 mg ORALq 12 HPrior to Admission Medications:amitriptyline (ELAVIL) 25 mg tablet Take 25 mg by mouth daily at bedtime.hydroCHLOROthiazide (HYDRODIURIL, ESIDRIX) 25 mg ta blet Take 25 mg bymouth once daily.HYDROcodone-acetaminophen (NORCO) [...] with keycomponents of resident's note, care plan anddecision making for the daydiscussed.Doing well w/o pain. chaz PO and normal BMs. D/C todayAll of her questions answered and concerns addressedPt appreciative of the Xena Landeros, Evan Landeros, MDSeptember 2016 1:09 PMNormalSouthwood Community HospitalBasic Metabolic Panlon 81-55-4447Duixi gap10 mmol/LNormal9-18[facility] HospitalComment on above: Performed By: #### CBC, BMP, MG1 ####[place] [phone] mg/dLLow8.5-10.5[facility] HospitalComment on above:Result Comment: ReviewedPerformed By: #### ROMIE, BMP, MG1 ####[place] [phone] Mbcthszf252 mmol/ULhzqiu65-684Mbdgqnlt HospitalComment on above:Performed By: #### ROMIE, BMP, MG1 ####[place] [phone] mmol/FWgyrxx53-53Awxojnrv HospitalComment on above: Performed By: #### ROMIE, BMP, MG1 ####[place] [phone] mg/dLLow0.70-1.40[facility] HospitalComment on above:Performed By: #### ROMIE, BMP, MG1 ####[place] [phone] (non-black) mL/min/{1.73_m2}Normal>60[facility] HospitalComment on above:Performed By: #### ROMIE, BMP, MG1 ####[place] [phone] mass wbgw888 mg/hVPjqr36-945Caoznjmb HospitalComment on above:Performed By: #### CBC, BMP, MG1 ####[place] [phone] molar conc4.1 mmol/LNormal3.5-5.0 [facility] HospitalComment on above:Result Comment: ReviewedPerformed By: #### CBC, BMP, MG1 ####[facility] [place], [place] [phone] mmol/UHdaiou039-621Nqcwqyzf HospitalComment on above: Performed By: #### CBC, BMP, MG1 ####[facility] [place], [place] [phone] nitrogen4 mg/dLLow8-25[facility] HospitalComment on above:Performed By: #### CBC, BMP, MG1 ####[facility] [place], [place] [phone] MGT INIT ASSESon 39-69-4983DITE MGT INIT [facility] ID: [id number]: Negar (Acute Care Certified Nursing Assistant-S) SOMMER Johnervice: Social WorkAuthor Type: Social WorkerType: Care Mgt Initial AssessmentFiled: 01/12/2017 10:39 AMNote Text:CARE MANAGEMENT: ASSESSMENT AND DISCHARGE PLANSERVICE DATE: 01/12/2017SERVICE TIME: 939PRIMARY CARE PHYSICIAN:Tommy Anaya, DOPhone: [id number] STATUS: InpatientPOTENTIAL DISCHARGE PLANSHomePatient/Transportation Attendant Stated Goals: I dont think I will be needinganything when I go home per ptNeeds Prior to Discharge: Ready for DischargeHealth Insurance: Supermed PlusLiving Arrangement: HomeLives With: Spouse. Dtr lives nearby and assists with cleaningFinancial Resources: Pt and own a body shopPrimary Contact:Extended Emergency Contact InformationPrimary Emergency Contact: Ying Adrian Phone: Relation: ChildSupportive: YesOther Important Patient Contacts: Pt states her is verysupportive.CAREGIVER ASSESSMENT:Caregiver is ready, willing and able to meet the patient's needs asrecommended by the inter-professional team? NoPatient's transition needs and plan for meeting these needs:Pt identifiesno needsDoes the patient have an acute [...] issues obtaining one or more of yourmedications? Non e of the timeAre you interested in bedside [...] days? NoHas the Patient Been in a Half-Way Facility in the Past 30 days? NoFREEDOM OF CHOICE EXPLAINED:Yes with ptHANDOFF COMMUNICATION:Primary Care Physician: Tommy Anaya DO Phone Number: .Summary will be routed via Uniteam Communication at d/cPt is from [facility] (about [address] [facility]) She is hopingto return home with no needs, but family can assist should needs arise.Dtr or will transport at d/c.SIGNATURE: BISMARK Jacobs PATIENT NAME: Sofie AdrianDATE: January 12, 2017 : 10:32 AM PAGER/CONTACT #: [phone] Hospital 58-49-4047Kmvukscdtgk distribution width Auto Ratio (RBC)12.7 %Vxlhkj26.5-15.0 [facility] HospitalComment on above:Performed By: #### CBC BMP, MG1 ####[place] [address]Erythrocytes (RBC)2.78 10*6/uLLow3.90-5.20[facility] HospitalComment on above:Performed By: #### ROMIE BMP, MG1 ####[place] [address] Hematocrit (HCT)27.9 %Low36.0-46.0[facility] HospitalComment on above:Performed By: #### ROMIE BMP, MG1 ####[place] [address]Hemoglobin mass conc (Bld)8.8 g/dLLow11.5-15.5[facility] Hospital Comment on above:Performed By: #### RITA GRUBBS, MG1 ####[place] [address]MCH31.7 bMYuznta42.0-34.0[facility] HospitalComment on above:Performed By: #### RITA GRUBBS, MG1 ####[place] [address]MCHC mass conc (RBC) 31.5 g/bBKucdfj61.5-36.0[facility] HospitalComment on above:Performed By: #### ROMIE BMP, MG1 ####[place] [address]MCV100.4 eAEjdv72.0-100.0[facility] HospitalComment on above: Performed By: #### ROMIE BMP, MG1 ####[place] [address]Platelet mean volume (PMV)11.1 fLNormal 9.0-12.7[facility] HospitalComment on above:Performed By: #### ROMIE BMP, MG1 ####[place] [phone] 135 10*3/xVIdg234-512Ndqrjnlg HospitalComment on above:Performed By: #### CBC BMP, MG1 ####[place] [id number] [place], [place] [phone] WBC (Leukocytes)3.27 10*3/uLLow3.70-11.00[facility] HospitalComment on above: Performed By: #### CBC BMP, MG1 ####[place] [phone] [place], [place] [phone] 40-52-8522Welejbtha8.8 mg/dL Normal1.7-2.6[facility] HospitalComment on above:Performed By: #### CBC, BMP, MG1 ####[place] [phone] [place], [place] [phone] on 92-97-5066VBHKBWDFNUE ID: [id number]: TREY Villavicencio Reservice: General SurgeryAuthor Type: ResidentType: Progress NotesFiled: 01/12/2017 7:27 AMNote Text:General Surgery Progress NoteService Date: January 12, 2017Patient Name: Sofie AdrianMRN: [id number] and Plan: Soife Adrian is a 61 year old female with SBO andstrangulated internal hernia??POD 3?s/p laparoscopic lysis of adhesions,doing well. 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 No acute issues overnight. BM-, Flatus+.Pain -. N-. Denies SoB/CPPhysical Exam:BP 110/67 Pulse 76 Temp 36.5 ?C (97.7 ?F) (Oral) Resp 16 Ht 154.9cm (5' 1 ) Wt 64.1 kg (141 lb 6.4 oz) SpO2 95% BMI 26.72 kg/t4EQAISKK/NEURO: Awake, Alert, no distressHEENT: Normocephalic, Atraumatic, sclera anictericCHEST: Unlabored breathing on RA, hemodynamically stableABDOMEN: Soft, Non-tender, Non-Distended, Incisions clean/dry/intact, JPSSEXTREMITIES:warm, well perfused, no jaundice, no cyanosis, no [...] LipaseLactate (mmol/L)Date 08/08/2015 1.0Intake and Output:Date 01/11/17 07 - 01/12/17 0659 01/12/17 07 - 01/13/17 0659Shift 5786-5202 3864-8098 3599-5106 24 Hour Total 7465-6721 1727-88210014-7931 24 Hour TotalINTAKE PO 120 120 240 PO 120 120 240 IV 752 817 5842 D5 0.45%NS w/20KCL 116 808 8794 Shift Total 1025 739 1764OUTPUT Urine 475 725 440 9401 Void (ml) 275 485 855 2234 Tube Output ([REMOVED] GUDrain Trujillo 01/09/17 16 Azeri ) 200 200 Tubes 140 130 100 370 Drain/Tube Output (Drain/Tube Hasmukh Atkins Right Abdomen 01/09/1719Fr) 140 130 100 370 Shift Total 615 730 500 1845Weight (kg) 64.1 64.1 64.1 64.1 64.1 64.1 64.1 64.1Current Medications:Current hospital medications:pantoprazole DR 20 mg tab(s) (PROTONIX) 20 mg ORAL DAILY (6 AM)dextrose 5% in NaCl 0.45% with 20 mEq/L KCl iv infusion 100 mL/hrINTRAVENOUS CONTINUOUSmorphine ATHLETIC EQUIPMENT CUSTODIAN 1 mg/mL in NaCl 0.9% 100 mL INTRAVENOUS CONTINUOUSmorphine 1 mg/mL ATHLETIC EQUIPMENT CUSTODIAN CLINICIAN DOSE 1 mg 1 mg INTRAVENOUS [...] mg tablet Take 25 mg bymouth once daily.HYDROcodone- acetaminophen (NORCO) 5-325 mg per tablet Take 1 tablet bymouth every 8 hours as needed for Pain.febuxostat (ULORIC) 40 mg tab Take by mouth once daily.albutero l HFA (VENTOLIN HFA) 90 mcg/actuation inhaler Inhale [...] (radiology procedure) For CT ABD/PEL W IVCON RoutineorderAdminister, As Directed One Time Only, via Oral, Rectal, both Oraland Rectal, Enteric Tube, Stoma or Indwelling Catheter, Enteric Contrastas designated per enteric contrast guidelinesatorvastatin (LIPITOR) 10 mg tablet Take 10 mg by mouth once daily.Cetirizine 10 mg cap Take by mouth once daily.Omeprazole (PRILOSEC) 40 mg capsule Take 1 capsule by mouth once daily.METOPROLOL TARTRATE ORAL Take 50mg by mouth twice daily.OTC PRODUCT Indications: OSTEO-BIFLEX Takes 2 PO QDNormal [facility] HospitalPT EDon [id number] EDHNO ID: [id number]: Nikki Tinajero (Pharmacist)Service: PharmacyAuthor Type: PharmacistType: Patient EducationFiled: 01/12/2017 11:10 AMNote Text:Clinical Pharmacy ServicesHigh Risk: Daily Medication AssessmentPatient Name: Sofie Donald LaurenN: [id number] Date: 01/08/2017Service Date and Time: 01/12/2017 10:52 AMNew MedicationsThe following medications have been started since last pharmacy review:Protonix, ToradolMedication education has been completed: Yes or Comments: patient alsoasked about dosing her metoprololSignature: Julius Feliz (Inner Tube Inserter)[facility]: [phone]: [phone] Addendum:The above case has been reviewed and discussed with the pharmacy general manager.I agree with the assessment/plan described by the student. Changes andadditions to the details in the above note are indicated by italics and .Nikki Tinajero Pharmacist01/12/2017 11:10 [id number]rdian HospitalANES Viktor 59-51-6174LTMM POSTHNO ID: [id number]: Payam Gomezervice: AnesthesiologyAuthor Type: AnesthesiologistType:Anesthesia PostOpFiled: 01/11/2017 12:37 PMNote Text:POST ANESTHESIA EVALUATION [...] and adequate airway control. The patient has appropr iate pain reliefand no significant post operative nausea or vomiting. The patient hasachieved baseline mental status.Further assessment by Anesthesia Service: NoneOther Remarks:SIGNATURE: Payam Anand MD PATIENT NAME: Sofie AdrianDATE: January 11, 2017 : 12:36 PM PAGER/CONTACT #: [phone] HospitalBasi Metabolic Panlon 48-02-5273Btsbz gap9 mmol/L Normal9-18[facility] HospitalComment on above:Performed By: #### CBC, BMP, MG1 ####[place] [address]Calcium 7.4 mg/dLLow8.5-10.5[facility] HospitalComment on above:Performed By: #### RITA GRUBBS MG1 ####[place] [address] Uootrebj042 mmol/DEddyjb10-954Vhtsmoxy HospitalComment on above:Performed By: #### RITA GRUBBS MG1 ####[place] [address]CO223 mmol/ZAfcpdt85-54Zqenctyz HospitalComment on above: Performed By: #### RITA GRUBBS MG1 ####[place] [address]476-[address]Creatinine0.64 mg/dLLow0.70-1.40[facility] HospitalComment on above:Performed By: #### RITA GRUBBS MG1 ####[place] [address]476-71[address]eGFR (non-black) mL/min/{1.73_m2}Normal>60[facility] HospitalComment on above:Performed By: #### RITA GRUBBS MG1 ####[place] [address]476-[address]Glucose mass cuyc360 mg/iRRhmw12-905Iuwutbhs HospitalComment on above:Performed By: #### RITA GRUBBS MG1 ####[place] [address]476-71[address]Potassium molar conc3.4 mmol/LLow3.5-5.0 [facility] Hospitalment on above:Performed By: #### RITA GRUBBS MG1 ####[place] [address]476-71[address]Sodium136 mmol/LNormal 132-148[facility] HospitalComment on above:Performed By: #### RITA GRUBBS, MG1 ####[place] [address]476-71[address]Urea yvpraixp96 mg/dLNormal8-25[facility] HospitalComment on above:Performed By: #### RITA GRUBBS MG1 ####[place] [address]CBCon 99-09-6571Ngortyjvyot distribution width Auto Ratio (RBC) 12.9 %Mrwvnt91.5-15.0[facility] HospitalComment on above:Performed By: #### RITA GRUBBS, MG1 ####[place] [address] Erythrocytes (RBC)2.55 10*6/uLLow3.90-5.20[facility] HospitalComment on above: Performed By: #### RITA GRUBBS MG1 ####[place] [address]Hematocrit (HCT)25.8 %Low36.0-46.0[facility] HospitalComment on above:Performed By: #### RITA GRUBBS, MG1 ####[place] [address]Hemoglobin mass conc (Bld)8.2 g/dLLow11.5-15.5[facility] HospitalComment on above:Performed By: #### RITA GRUBBS, MG1 ####[place] [address]MCH32.2 dRPlwvuj12.0-34.0[facility] HospitalComment on above: Performed By: #### RITA GRUBBS, MG1 ####[place] [address]MCHC mass conc (RBC)31.8 g/dLNormal 30.5-36.0[facility] HospitalComment on above:Performed By: #### RITA GRUBBS, MG1 ####[place] [address]MCV101.2 oZIqby71.0-100.0[facility] HospitalComment on above:Performed By: #### RITA GRUBBS, MG1 ####[place] [phone] Platelet mean volume (PMV)10.9 fLNormal9.0-12.7[facility] HospitalComment on above:Performed By: #### ROMIE, BMP, MG1 ####[place] [phone] 10*3/vQCby124-470Jdqfbgpi HospitalComment on above:Performed By: #### ROMIE, RITA, MG1 ####[place] [phone] (Leukocytes)2.75 10*3/uLLow3.70-11.00[facility] HospitalComment on above:Performed By: #### RITA GRUBBS, MG1 ####[place] [phone] Magnesiumon 55-16-5523Naumpapbt7.7 mg/dLNormal1.7-2.6[facility] HospitalComment on above:Performed By: #### RITA GRUBBS, MG1 ####[place] [address]NURSING PROGon 98-39-0822NJUSNTK PROGHNO ID: [id number]: Josie (Rn) RAJ Palafoxervice: NursingAuthor Type: Registered NurseType: Nursing Progress NoteFiled: 01/12/2017 12:04 AMNote Text: Nursing Progress NotePatient Name: Sofie Donald JakeMRN: [id number] Location: [address]/BU-OC2V-51 Pt awake and alert. Pt c/o 2/10 abdominal pain. Pt minimally using PCApump. Explained POC and probable advancement in diet and possiblediscontinue of ATHLETIC EQUIPMENT CUSTODIAN pump. Pt understands. Will continue to monitor.This note was completed by: Josie Palafox RN,[facility] ID: [id number]: Judy RennerRn) [place] Garcia: (none)Author Type: Registered NurseType: Nursing Progress NoteFiled: 01/11/2017 6:28 PMNote Text: Nursing Progress NotePatient Name: Sofie Donald BradentonMRN: [id number] Location: [place] [address]/MC-KN3K-66 Daily Note:IV/ATHLETIC EQUIPMENT CUSTODIAN maintained.Taking diet fair.No n/v.Voiding clearurine.Up in chair for about one hour,ambulates to bathroom with walker andone assist.Will reassess.This note wascompleted by: Judy Garcia RN [facility] ID: [id number]: Judy Kumari) [place] Garcia: (none)Author Type: Registered NurseType: Nursing Progress NoteFiled: 01/11/2017 9:48 AMNote Text: Nursing Progress NotePatient Name: Sofie Bhatt erMRN: [id number] Location: [place] [address]/FH-SZ0I-39 Daily Note:IV/ATHLETIC EQUIPMENT CUSTODIAN morphine maintained.Diet advanced to clear liquid thento GI soft-waiting for tray at this time.Taking clear liquids well.Non/v.Trujillo removed at 8:10 A.M.,has not voided as of yet.Lap sites cleanand well approximated.No drainage noted.Dressing around Hasmukh Atkins inplace and draining reddish drainage.Abd. soft,distended,and tender.Bowelsounds hypoactive.Denies pain.Will reassess.This note was completed by: Lonnie CasanovaArbour Hospital 29-63-9757TBMOMOOXTXM ID: [id number]: Reji Núñezvice: General SurgeryAuthor Type: PhysicianType: Progress NotesFiled: 01/11/2017 3:04 PMNote Text: SURGERY INPATIENT PROGRESS NOTEName: Sofie Donald BradentonMRN: [id number] and Plan:61 year old female with SBO and strangulated internal hernia POD 2 s/plaparoscopic lysis of adhesions, doing well?- Pain control: tylenol, morphine ATHLETIC EQUIPMENT CUSTODIAN- FEN/GI: GIS diet, NGTremoved yesterday- ID: On Abx Zosyn- DC Trujillo today- VTE Prophylaxis: SQH, SCDs- Routine surgical care: IS, OOB- Dispo: RNFS: Resting well. No acute issues overnight. BM-, Flatus+. Pain -. N-.Denies SoB/CP.O:Current hospital medications:phenol 1 Orofino (CHLORASEPTIC) 1 Orofino MUCOUS MEMBRANE (TOPICALMOUTH ANDTHROAT) q 2 H PRNdextrose 5% in NaCl 0.45% with 20 mEq/L KCl iv infusion 100 mL/hrINTRAVENOUS CONTINUOUSmorphine ATHLETIC EQUIPMENT CUSTODIAN 1 mg/mL in NaCl 0.9% 100 mL INTRAVENOUS CONTINUOUSmorphine 1 mg/mL ATHLETIC EQUIPMENT CUSTODIAN CLINICIAN DOSE 1 mg 1 mg INTRAVENOUS [...] (short acting) 12.5 mg tab(s) (LOPRESSOR) 12.5 mgORALq 12 HBP 101/59 Pulse 87 Temp 37.1 ?C (98.7 ?F) (Oral) Resp 16 Ht 154.9cm (5' 1 ) Wt 64.1 kg (141 lb 6.4 oz) SpO2 96% BMI 26.72 kg/r0Szunpm/Output Summary (Last 24 hours) at 01/11/17 0755Last [...] 25.8* 32.3* 37.2 36.7 < > 28.4*PLT 1 12* 113* 180 186 < > 139*NA 136 139 138 136 < > 137K 3.4* 3.6 3.8 3.8 < > 4.3CHLOR 104 104 102 100 < > 101CO2 23 23 18* 20* < > 25BUN 10 12 12 13 < > 2*CREAT 0.64*0.66* 0.58* 0.54* < > 0.47*GLUC 188* 100 171* 159* < > 125*CA 7.4* 7.8* 8.6 8.8 < > 8.5MG 1.7 1.9 1.7 1.9 -- 1.6*P -- -- 3.0 3.9 -- 2.1*< > = values in this interval not displayed.Liver Function, Amylase, AND LipaseRecent Labs 08/11/160013/105397RYIQW 8.1 6.9 6.1 < > --ALB 4.1 4.0 3.5 < > --ALT 12 51* 46* < > --AST 37 91* 81* < > --ALKPHOS 207* 185* 130 < > --TBILI 0.4 0.4 0.4 < > --LACT -- -- -- -- 1.0< > = values in this interval not displayed.CoagsRecent Labs 01/09/1706 345APTT 28.1 26.8 27.7INR 1.1 1.1 1.1*A review of daily goals, interventions, and plan of care withthemultidisciplinary team and patient has been conducted. The patient?sconcerns have been addressedand he/she agrees to proceed with today?splan of care.Raghu Westbrook MDGen[facility] Surgery PGY-17:55 A 01/11/2017[place] Team Pager: [phone]*Please page Jr. On-Call [phone]) 6pm - 6am and on weekends.Att: NGout. Fullness after eating today - I told her to take it slowly. Abdomen still benign.Some Pancytopenia on labs - could be lab error. Will recheck in AM. Ptclinically stable.Reji Sampson, [facility] ADAept[facility] 2016 3:04 PMNormalSouthwood Community HospitalBasi Metabolic Panlon 59-92-1007Mpvon gap12 mmol/LNormal9-18[facility] HospitalComment on above:Performed By: #### CBC, BMP, MG1 ####[address] [phone] Calcium7.8 mg/dLLow8.5-10.5[facility] HospitalComment on above:Performed By: #### CBC BMP, MG1 ####[address] [phone] mmol/AGjbtgf43-045Ckcsihli HospitalComment on above:Performed By: #### CBC, BMP, MG1 ####[place] [address]CO223 mmol/YUbbuml67-62Dwsfihxv Hospital Comment on above:Performed By: #### RITA GRUBBS MG1 ####[place] [address]Creatinine0.66 mg/dLLow0.70-1.40 [facility] HospitalComment on above:Performed By: #### RITA GRUBBS MG1 ####[place] [address]eGFR (non-black) mL/min/{1.73_m2}Normal>60[facility] HospitalComment on above:Performed By: #### RITA GRUBBS MG1 ####[place] [address]Glucose mass sgxc515 mg/uXTmjomp60-889Tabkkabh HospitalComment on above:Performed By: #### RITA GRUBBS MG1 ####[place] [address]Potassium molar conc3.6 mmol/LNormal3.5-5.0 [facility] HospitalComment on above:Performed By: #### RITA GRUBBS MG1 ####[place] [address]Sodium139 mmol/LNormal 132-148[facility] HospitalComment on above:Performed By: #### RITA GRUBBS MG1 ####[place] [address]Urea oepzujje11 mg/dLNormal8-25[facility] HospitalComment on above:Performed By: #### RITA GRUBBS MG1 ####[place] [address]CBCon 41-80-8864Fzpbollsjna distribution width Auto Ratio (RBC) 12.5 %Qupjtg87.5-15.0FaHarley Private HospitalComment on above:Performed By: #### RITA GRUBBS, MG1 ####[place] [address] Erythrocytes (RBC)3.23 10*6/uLLow3.90-5.20[facility] HospitalComment on above: Performed By: #### CBC, BMP, MG1 ####[place] [address]Hematocrit (HCT)32.3 %Low36.0-46.0[facility] HospitalComment on above:Performed By: #### CBC, BMP, MG1 ####[place] [address]Hemoglobin mass conc (Bld)10.3 g/dLLow11.5-15.5[facility] HospitalComment on above:Performed By: #### CBC, BMP, MG1 ####[place] [address]MCH31.9 jISyfjwz96.0-34.0[facility] HospitalComment on above: Performed By: #### CBC, BMP, MG1 ####[place] [address]MCHC mass conc (RBC)31.9 g/dLNormal 30.5-36.0[facility] HospitalComment on above:Performed By: #### CBC, BMP, MG1 ####[place] [address]MCV100.0 dGFhsedu85.0-100.0[facility] HospitalComment on above:Performed By: #### CBC, BMP, MG1 ####[place] [address] Platelet mean volume (PMV)11.3 fLNormal9.0-12.7[facility] HospitalComment on above:Performed By: #### CBC, BMP, MG1 ####[place] [address]Platelets113 10*3/vWTrt023-748Hthfujrl HospitalComment on above:Performed By: #### ROMIE, BMP, MG1 ####[place] [id number] [place], [place] [phone] (Leukocytes)5.33 10*3/uLNormal3.70-11.00FaHarley Private HospitalComment on above:Performed By: #### CBC, BMP, MG1 ####[address] [phone] 25-08-3073Pfyhkikjn8.9 mg/dLNormal1.7-2.6FMcLean Hospital Comment on above:Performed By: #### ROMIE, BMP, MG1 ####[address] [phone] PROGon 67-88-4327DBGDAXK NEMO ID: [id number]: Julia RennerRn) [place] Serra: (none)Author Type: Registered NurseType: Nursing Progress NoteFiled: 01/10/2017 5:25 PMNote Text: Nursing Progress NotePatient Name: Sofie Donald LaurenN: [id number] Location: [place] [address]/VU-DI2N-00 Daily Note:1700: Removed NG tube per physician order. Patient tolerated procedurewell. Ice water was provided to patient post-removal and she toleratedwell.This note was completed by: Precious Diop [facility] CenterBECKI[facility] NEMO ID: [id number]: Mariluz RennerRn) Elva Schaferice: (none)Author Type: Registered NurseType: Nursing Progress NoteFiled: 01/10/2017 1:28 PMNote Text: Nursing Progress NotePatient Name: Wilmer JakeMRN: [id number] Location: [place] [address]/WM-VO5T-98 Daily Note: No acute issues this shift. Pt. up in chair. Ambulated inhallwith walker and 1 staff assist. ATHLETIC EQUIPMENT CUSTODIAN morphine maintaining paincontrol. NGT to LCWS draining scant amount of bilious fluid.BS-hypoactive. IS use encouraged. Call light within reach. NPO exeptsmeds. Will continue to monitor.This note was completed by: Mariluz Schafer, [employer] PROGRESSon 48-57-7483EVPLOGTSKKU ID: [id number]: Reji Wheatleye: General SurgeryAuthor Type: PhysicianType: Progress NotesFiled: 01/10/2017 5:59 PMNote Text: SURGERY INPATIENT PROGRESS NOTEName: Sofie Donald [facility] CenterN: [id number] and Plan:61 year old female with SBO and strangulated internal hernia POD 1 s/plaparoscopic lysis of adhesions, doing well- Pain control: tylenol, morphine ATHLETIC EQUIPMENT CUSTODIAN- FEN/GI: NPO, NGT- ID: On Abx Zosyn- JACK [place] today- VTE Prophylaxis: SQH, SCDs- Routine surgical care: IS, OOB- Dispo: RNFS: Resting well. No acute issues overnight. BM-, Flatus-. Pain -. N-.Denies SoB/CP.O:Current hospital medications:phenol 1 Orofino (CHLORASEPTIC) 1 Orofino MUCOUS MEMBRANE (TOPICAL MOUTH ANDTHROAT) q 2 H PRNmorphine ATHLETIC EQUIPMENT CUSTODIAN 1 mg/mL in NaCl 0.9% 100 mL INTRAVENOUS CONTINUOUSmorphine 1 mg/mL ATHLETIC EQUIPMENT CUSTODIAN CLINICIAN DOSE 1 mg 1 mg INTRAVENOUS q 6 H PRNpiperacillin-tazobactam 3.375 g in dextrose (iso-osmotic) 50 mL (ZOSYN)3.375 g INTRAVENOUS q 6 Hacetaminophen 650 mg tab(s) (TYLENOL) 650 mg ORAL q 6 Halbuterol HFA 90mcg/actuation 2 Puff (PROVENTIL HFA, VENTOLIN HFA) 2 PuffINHALATION q 6 H PRNrOPINIRole 2 mg tab(s)(REQUIP) 2 mg ORAL AT BEDTIMEamitriptyline 25 mg tab(s) (ELAVIL) 25 mg ORAL AT BEDTIMEFLUoxetine 40mg cap(s) (PROzac) 40 mg ORAL DAILYNaCl 0.9% [...] lb 6.4 oz) SpO2 98% BMI 26.72 kg/c1Ghqgmc/Output Summary (Last 24 hours) at 01/10/17 1006Last data filed at 01/10/17 0900 Gross per 24 hourIntake 3690 mlOutput 1550 mlNet 2140 mlGeneral Appearance: Well appearing, alert, in no acute distress,well-hydrated, well nourished.Abdomen: soft, appropriately tenderIncision C/D/IDrain: serosanguinousCBC, BMP, MG, PHOSRecent Labs 01/09/1706143WBC 5.33 13.84* 10.34< > 7.41HB 10.3* 12.3 12.4 < > [...] displayed.Liver Function, Amylase, AND LipaseRecent Labs 535 910686 827711 782440SUQUP 8.1 6.9 6.1 < > --ALB 4.1 4.0 3.5 < > --ALT 12 51* 46* < > --AST 37 91* 81* < > --ALKPHOS 207* 185* 130 < > --TBILI 0.4 0.4 0.4 < > --LACT -- -- -- -- 1.0< > = values in this interval not displayed.CoagsRecentLabs 9501/09/1706689380GQPA 28.1 26.8 27.7INR 1.1 1.1 1.1*A review of daily goals, interventions, and plan of care with themultidisciplinary team and patient has been conducted. The patient?sconcerns have been addressed and he/she agrees to proceed with today?splan of care.MD ChrisGeneral Surgery PGY-110:06 AM01/10/2017[place] Team Pager: [phone]*Please page Jr. On-Call [phone]) 6pm - 6am and on weekends.Att: As above. Pt seen at 1000 today. Minimal pain, and abdomen shira ign. NG output decreasing; will consider clamp trial later vs DC of NGtomorrow AM.Reji Sampson, [facility] ADAeptember 2016 5:59 PMNormalSouthwood Community HospitalToxicology Screen,Uron 53-00-7495Klgdcnicbyra, UrineNegativeNormalNegativeSouthwood Community HospitalComment on above:Result Comment: Cutoff threshold at 1000 ng/mL.Detection of any drug(s) is presumptive only. For confirmation by alternative methods contact the Laboratory within 5 days. For medical purposes only. Documented cross-reactivities (false positives) on file in Laboratory. Performed By: #### UTOX2 ####[place] [address]Barbiturates, UrineNegativeNormalNegativeFaircincinnati shriners hospital Hospital Comment on above:Result Comment: Cutoff threshold at 200 ng/mL.Detection of any drug(s) is presumptive only. For confirmation by alternative methods contact the Laboratory within 5 days. For medical purposes only. Documented cross- reactivities (false positives) on file in Laboratory.Performed By: #### UTOX2 ####[place] [address] Benzodiazepines, UrPositiveCritically abnormalNegativeFaircincinnati shriners hospital HospitalComment on above:Result Comment: Cutoff threshold at 200 ng/mL.Detection of any drug(s) is presumptive only. For confirmation by alternative methods contact the Laboratory within 5 days. For medical purposes only. Documented cross- reactivities (false positives) on file in Laboratory.Performed By: #### UTOX2 ####[place] [address] Cannabinoids, UrineNegativeNormalNegativeFaircincinnati shriners hospital HospitalComment on above: Result Comment: Cutoff threshold at 50 ng/mL.Detection of any drug(s) is presumptive only. For confirmation by alternative methods contact the Laboratory within 5 days. For medical purposes only. Documented cross-reactivities (false positives) on file in Laboratory.Performed By: #### UTOX2 ####[place] [address]Cocaine, UrineNegative NormalNegativeFaircincinnati shriners hospital HospitalComment on above:Result Comment: Cutoff threshold at 300 ng/mL.Detection of any drug(s) is presumptive only. For confirmation by alternative methods contact the Laboratory within 5 days. For medical purposes only. Documented cross-reactivities (false positives) on file in Laboratory. Performed By: #### UTOX2 ####[place] [address]Ethanol, Urine<11Normal<11[facility]view HospitalComment on above: Performed By: #### UTOX2 ####[place] [address]Opiates, UrinePositiveCritically abnormalNegativeTrimble HospitalComment on above:Result Comment: Cutoff threshold at 300 ng/mL.Detection of any drug(s) is presumptive only. For confirmation by alternative methods contact the Laboratory within 5 days. For medical purposes only. Documented cross-reactivities (false positives) on file in Laboratory.Performed By: #### UTOX2 ####[place] [phone] Oxycodone, UrineNegativeNormalNegativeTrimble HospitalComment on above:Result Comment: Cutoff threshold at 100 ng/mL.Detection of any drug(s) is presumptive only. For confirmation by alternative methods contact the Laboratory within 5 days. For medical purposes only. Documented cross-reactivities (false positives) on file in Laboratory.Performed By: #### UTOX2 ####[address] [phone], UrineNegativeNormal NegativeTrimble HospitalComment on above:Result Comment: Cutoff threshold at 25 ng/mL.Detection of any drug(s) is presumptive only. For confirmation by alternative methods contact the Laboratory within 5 days. For medical purposes only. Documented cross-reactivities (false positives) on file in Laboratory. Performed By: #### UTOX2 ####[address] [phone] PREOPon [id number] PREOPHNO ID: [id number]: Joe VergaraoghueService: AnesthesiologyAuthor Type: AnesthesiologistType: Anesthesia PreOpFiled: 01/09/2017 11:54 AMNote Text:REGIONAL ANESTHESIOLOGY DAY OF SURGERY NOTEPATIENT NAME: Sofie Donald JakeMRN: [id number]: 1955Procedure(s) (LRB):EXPLORATORY LAPAROTOMY ADULT (N/A)LAPAROSCOPY DIAGNOSTIC (N/A)Surgeon(s):Adis Figueroa AlaedghulamEstimated body mass index is 26.72 kg/(m2) as calculated from thefollowing: Height as of this encounter: 154.9 cm (5' 1 ). Weight as of this encounter: 64.1 kg (141 lb 6.4 oz).ASA Class: 3EAdequate NPO status: YesAllergies:ALLERGIESAllergen Reactions- Penicillins Vomiting- Sulfa (Sulfonamide * RashAirway Assessment: MP 3; Neck RO M: Limited Extension; Airway Evaluation:Small Mouth OpeningDentition: Teeth intactSymptoms of SleepApnea: DeniesMost recent lab results:Hemoglobin 12.3 01/09/2017Hematocrit 37.2 01/09/2017Potassium 3.8 01/09/2017Platelet Count 180 01/09/2017PT Sec 11.6 01/09/2017APTT 28.1 01/09/2017PT INR 1.1 01/09/2017Creatinine 0.58 01/09/2017EKG:sinus tachycardiaVitals: 3 442 0 140BP: 122/72 146/78 140/73 119/75Pulse: 108 111 96 88Resp: 16 16 17 18Temp: 36.4 ?C (97.6 ?F) 36.4?C (97.6 ?F) 37.2 ?C (99 ?F)TempSrc: Oral [...] risks, benefits, alternatives, personnel and consent discussed:YesPatient agreesto proceed: YesBlood Products: Will accept Blood/Blood ProductsAnesthetic Plan: General RSI; Standard ASA Monitors and Large bore IV'[facility] Management Plan: Parenteral or OralEPIC Chart ReviewACTIVE PROBLEM LISTIron Deficiency AnemiaPud (Peptic Ulcer Disease)Carotid StenosisVertigoTachycardiaBpv (Benign Positional Vertigo)Hld (Hyperlipidaemia)Rectal BleedingExertional DyspneaEmphysema of Lung (Hcc)Alcohol AbuseStatus Post SurgerySbo (Small Bowel Obstruction) (Hcc)PAST MEDICAL HISTORYDiagnosis Date- Acid reflux- Alcohol abuse Bottle of wine daily- Arthritis- Carotid stenosis medical management-COPD (chronic obstructive pulmonary disease) (HCC) mild obstruction on PFT's 09/2013- Former smoker 10 pack years, quit 2003- High cholesterol- History of rheumatic fever- Hypertension- PUD (peptic ulcer disease) 02/2014- Tachycardia- Ulcer (HCC)- VertigoPAST SURGICAL HISTORYProcedure Laterality Date- COLONOSCOPY- LAP TOTAL COLECTOMY W/O PROCT. N/A 09/19/2015 Lap total colectomy with ileorectal anastomosis- MIDLINE INSERTION/CONSULT 08/10/2015- REMOVE TONSILS/ADENOIDS,<12 Y/O as child- SINUS SILVA RGERY HX age 35- TUBAL LIGATION HX age 19FAMILY HISTORYProblem Relation Age of Onset- Heart Mother-Heart Father- Lipids Father- Diabetes Father- Hypertension Mother- Arthritis SisterSocial History:Social HistorySubstance Use Topics- Smoking status: Former Smoker Packs/day: 0.50 Years: 20.00 Types:Cigarettes Quit date: 07/27/2003- Smokeless tobacco: Never Used- [...] January 09, 2017 : 11:50 AM PAGER/CONTACT #:[facility] [phone] rTvvoyn21.0-32.4FMcLean Hospital Comment on above:Result Comment: Unfractionated Heparin Therapeutic Ranges:Standard Heparin Nomogram: 53 to 78 seconds (anti-Xa level of 0.3 to 0.7 U/ml)Low Dose/ACS Nomogram: 49 to 67 seconds (anti-Xa level of 0.2 to 0.5 U/ml)Stroke Treatment Nomogram: 49 to 67 seconds (anti-Xa level of 0.2 to 0.5 U/ml)Note: The APTT therapeutic range has been determined for the current lot of laboratory APTT reagent in use throughout the [facility]. Performed By: #### PT, PTT ####[facility] [place], [place] [phone] kQyailb14.0-32.4FMcLean HospitalComment on above: Result Comment: Unfractionated Heparin Therapeutic Ranges:Standard Heparin Nomogram: 53 to 78 seconds (anti-Xa level of 0.3 to 0.7 U/ml)Low Dose/ACS Nomogram: 49 to 67 seconds (anti-Xa level of 0.2 to 0.5 U/ml)Stroke Treatment Nomogram: 49 to 67 seconds (anti-Xa level of 0.2 to 0.5 U/ml)Note: The APTT therapeutic range has been determined for the current lot of laboratory APTT reagent in use throughout the [facility].Performed By: #### CBC, PT, PTT, BMP, MG1, PHOS ####[facility] [place], [place] [phone] fRpsolf52.0-32.4Fel[facility]irm[facility] HospitalComment on above: Result Comment: Unfractionated Heparin Therapeutic Ranges:Standard Heparin Nomogram: 53 to 78 seconds (anti-Xa level of 0.3 to 0.7 U/ml)Low Dose/ACS Nomogram: 49 to 67 seconds (anti-Xa level of 0.2 to 0.5 U/ml)Stroke Treatment Nomogram: 49 to 67 seconds (anti-Xa level of 0.2 to 0.5 U/ml)Note: The APTT therapeutic range has been determined for the current lot of laboratory APTT reagent in use throughout the [facility].Performed By: #### CBC, PT, PTT, BMP, MG1, PHOS ####[place] [id number] [place], [place] [phone] OP NOTon [id number] OP NOTHNO ID: [id number]: Tanner aLneervice: General SurgeryAuthor Type: ResidentType: Brief Op NoteFiled: 01/09/2017 2:26 PMNote Text:BRIEF OPERATIVE / PROCEDURE NOTELOG ID: [id number]/Procedure Date: 01/09/2017Incision/Procedure Start Time: 12:48 PMIncision Close/Procedure End Time: 2:08 PMSurgeon(s)/Proceduralist(s) and Baffle Mounter(s):Surgeon(s) and Role:Panel 1: * Adis Landeros - Primary * Tanner Ordoñez - Resident - AssistingPanel 2: * Adis Landeros - PrimaryProcedure(s):Laparoscopic lysis of adhesionsAnesthesia: GeneralFindings: strangulated internal hernia caused by interloop adhesions,bowel appeared hemorrhagic but viable, doppler performed with strongsignalsEstimated Blood Loss: 10 ccSpecimens: NoneDrains: 19 Fr round drain in LLQWound Classification: Class 1, operative wound clean, non-traumatic, withno inflammation encountered, no break in technique, gastrointestinal andgenitor-urinary tracts not enteredPre-Op/Pre-Procedure Diagnosis: Small bowel obstructionPost-Op/Post-Procedure Diagnosis: Small bowel obstruction, internal herniaSIGNATURE: Tanner Ordoñez MD PATIENT NAME: Sofie AdrianDATE: January 09, 2017 : 2:24 PM PHONE: [id number] [place] [address] Metabolic Panlon 95-10-3134Zvurp gap18 mmol/LNormal9-18[facility] HospitalComment on above:Performed By: #### CBC, PT, PTT, BMP, MG1, PHOS ####[place] [address]Calcium8.6 mg/dLNormal 8.5-10.5[facility] HospitalComment on above:Performed By: #### CBC, PT, PTT, BMP, MG1, PHOS ####[place] [address]Chloride102 mmol/SRrykzq37-129Mdunjdzm HospitalComment on above:Performed By: #### CBC, PT, PTT, BMP, MG1, PHOS ####[place] [address]CO[address] mmol/OVdt68-88Muqrfwfu HospitalComment on above:Performed By: #### CBC, PT, PTT, BMP, MG1, PHOS ####[place] [address] Creatinine0.58 mg/dLLow0.70-1.40[facility] HospitalComment on above:Performed By: #### CBC, PT, PTT, BMP, MG1, PHOS ####[place] [address]eGFR (non-black)mL/min/{1.73_m2}Normal>60 [facility] HospitalComment on above:Performed By: #### CBC, PT, PTT, BMP, MG1, PHOS ####[place] [address] Glucose mass saji991 mg/xQWrcq78-059Djjwcckq HospitalComment on above:Performed By: #### CBC, PT, PTT, BMP, MG1, PHOS ####[place] [address]Potassium molar conc3.8 mmol/LNormal3.5-5.0 [facility] HospitalComment on above:Performed By: #### CBC, PT, PTT, BMP, MG1, PHOS ####[place] [address] Rksmdy888 mmol/XKwnnfr164-668Apywsdyp HospitalComment on above:Performed By: #### CBC, PT, PTT, BMP, MG1, PHOS ####[place] [address]Urea yjdyhrba72 mg/dLNormal8-25[facility] HospitalComment on above:Performed By: #### CBC, PT, PTT, BMP, MG1, PHOS ####[place] [address]Anion gap 16 mmol/LNormal9-18[facility] HospitalComment on above:Performed By: #### CBC, PT, PTT, BMP, MG1, PHOS ####[place] [address]Calcium8.8 mg/dLNormal8.5-10.5[facility] HospitalComment on above:Performed By: #### CBC, PT, PTT, BMP, MG1, PHOS ####[place] [address]Chloride100 mmol/PPrjual54-145 [facility] HospitalComment on above:Performed By: #### CBC, PT, PTT, BMP, MG1, PHOS ####[place] [address]CO2 20 mmol/GJwd72-09Nhhjprzb HospitalComment on above:Performed By: #### CBC, PT, PTT, BMP, MG1, PHOS ####[place] [address]Creatinine0.54 mg/dLLow0.70-1.40[facility] HospitalComment on above:Performed By: #### CBC, PT, PTT, BMP, MG1, PHOS ####[place] [address]eGFR (non-black)mL/min/{1.73_m2} Normal>60[facility] HospitalComment on above:Performed By: #### CBC, PT, PTT, BMP, MG1, PHOS ####[place] [address]Glucose mass zzas231 mg/hESdio18-806Wivjkalk HospitalComment on above:Performed By: #### CBC, PT, PTT, BMP, MG1, PHOS ####[place] [address]Potassium molar conc 3.8 mmol/LNormal3.5-5.0[facility] HospitalComment on above:Performed By: #### CBC, PT, PTT, BMP, MG1, PHOS ####[place] [phone] mmol/SCumkrl845-724Cmsvjybo HospitalComment on above: Performed By: #### CBC, PT, PTT, BMP, MG1, PHOS ####[place] [address]Urea mndhjeor93 mg/dLNormal8-25 [facility] HospitalComment on above:Performed By: #### CBC, PT, PTT, BMP, MG1, PHOS ####[place] [address]CASE MANAGEMon [id number] MANAGEMHNO ID: [id number]: Kathryn Melvin (Lsw)uloService: Care ManagementAuthor Type: Social WorkerType: Care Mgt Progress NoteFiled: 01/09/2017 3:10 PMNote Text:CARE MANAGEMENT PROGRESS NOTESERVICE D ATE: 01/09/2017SERVICE TIME: 3:00 PM LOS: 1 dayNeeds Prior to Discharge: To Be Determined;Other: SeeComment (CMSWattempted initial assessment process. Pt currently at surgery. CM willtry again another time. )SIGNATURE: NYASIA Higgins PATIENT NAME: Sofie AdrianDATE: January 09, 2017 MRN: [id number]: 3:10 PM PAGER/CONTACT #: [phone] Heights State Hospital [phone] distribution width Auto Ratio (RBC)12.4 %Jjkyzt91.5-15.0 [facility] HospitalComment on above:Performed By: #### CBC, PT, PTT, BMP, MG1, PHOS ####[place] [address] Erythrocytes (RBC)3.82 10*6/uLLow3.90-5.20[facility] HospitalComment on above: Performed By: #### CBC, PT, PTT, BMP, MG1, PHOS ####[place] [address]Hematocrit (HCT)37.2 %Normal 36.0-46.0[facility] HospitalComment on above:Performed By: #### CBC, PT, PTT, BMP, MG1, PHOS ####[place] [address]Hemoglobin mass conc (Bld)12.3 g/pFIxqrbj84.5-15.5[facility] HospitalComment on above:Performed By: #### CBC, PT, PTT, BMP, MG1, PHOS ####[place] [address]MCH32.2 zVBimezm69.0-34.0[facility] HospitalComment on above:Performed By: #### CBC, PT, PTT, BMP, MG1, PHOS ####[place] [address]MCHC mass conc (RBC)33.1 g/dSTgmsgr49.5-36.0[facility] Comment on above:Performed By: #### CBC, PT, PTT, BMP, MG1, PHOS ####[place] [address]MCV97.4 fLNormal 80.0-100.0[facility] HospitalComment on above:Performed By: #### CBC, PT, PTT, BMP, MG1, PHOS ####[place] [address]Platelet mean volume (PMV)11.0 fLNormal9.0-12.7[facility]irm[facility] HospitalComment on above:Performed By: #### CBC, PT, PTT, BMP, MG1, PHOS ####[place] [address]Platelets 180 10*3/aXXflhha929-792Nyhemfkt HospitalComment on above:Performed By: #### CBC, PT, PTT, BMP, MG1, PHOS ####[place] [address]WBC (Leukocytes)13.84 10*3/uLHigh3.70-11.00[facility] Comment on above:Performed By: #### CBC, PT, PTT, BMP, MG1, PHOS ####[place] [address]Erythrocyte distribution width Auto Ratio (RBC)12.7 %Uzpyvp39.5-15.0[facility] HospitalComment on above:Performed By: #### CBC, PT, PTT, BMP, MG1, PHOS ####[place] [address]Erythrocytes (RBC)3.80 10*6/uLLow3.90-5.20[facility] HospitalComment on above:Performed By: #### CBC, PT, PTT, BMP, MG1, PHOS ####[place] [address]Hematocrit (HCT)36.7 %Tsqmsy76.0-46.0[facility] HospitalComment on above:Performed By: #### CBC, PT, PTT, BMP, MG1, PHOS ####[place] [address]Hemoglobin mass conc (Bld)12.4 g/mOWygyak22.5-15.5[facility] HospitalComment on above:Performed By: #### CBC, PT, PTT, BMP, MG1, PHOS ####[place] [address]MCH32.6 dWCmkhbb11.0-34.0[facility] Comment on above:Performed By: #### CBC, PT, PTT, BMP, MG1, PHOS ####[place] [address]MCHC mass conc (RBC) 33.8 g/yAXmyvfk08.5-36.0[facility] HospitalComment on above:Performed By: #### CBC, PT, PTT, BMP, MG1, PHOS ####[place] [address]MCV96.6 aCYpwnuk55.0-100.0[facility] HospitalComment on above: Performed By: #### CBC, PT, PTT, BMP, MG1, PHOS ####[place] [address]Platelet mean volume (PMV)11.1 fL Normal9.0-12.7[facility] HospitalComment on above:Performed By: #### CBC, PT, PTT, BMP, MG1, PHOS ####[place] [address]Platelets186 10*3/jBRzdmkm007-342Inodxbwh HospitalComment on above:Performed By: #### CBC, PT, PTT, BMP, MG1, PHOS ####[facility] [place], [place] [phone] (Leukocytes)10.34 10*3/uLNormal 3.70-11.00[facility] HospitalComment on above:Performed By: #### CBC, PT, PTT, BMP, MG1, PHOS ####[facility] [place], [place] [phone] 03-50-6042LLUZKXAIAW ID: [id number]: Araceli Gamez (Rn) RAJ Mcneilervice: Wound/OstomyAuthor Type: [...] the flattestpossible surface/away from deep creases and folds,in the patient's visualfield, within the rectus muscle/within the nipple line, and away from theumbilicus/rib cage. Cleansed with alcohol and marked with single usesurgical marker.Assessment/Plan-stoma site marking complete-rn staffing to monitor daniel and place Tegaderm clear transparent dressingsas needed-Plan per surgical team, will remain available as needed.To contact Wound/Ostomy Care, please call the Wound Care Hotline at [phone] leave a message.SIGNATURE: Araceli Mcneil RN PATIENT NAME: Sofie AdrianDATE: January 09, 2017 : 4:00 PM PAGER/CONTACT #: [phone] HospitalHISTORY PHYSICALon 01-09-2017 HISTORY PHYSICALHNO ID: [id number]: Eloise (Madeline Elidaekaterina TREYervice: ColorectalAuthor Type: ResidentType: HANDPFiled: 01/09/2017 12:05 AMNote Text:HISTORY AND PHYSICAL EXAMINATIONSERVICE DATE: 01/08/2017SERVICE TIME:PRIMARY CARE PHYSICIAN: TIERNEY MercerJECTIVECHIGRACE COMPLAINT:HPI: This is a 61 year old [...] Quit date: 07/27/2003- Smokeless tobacco: Never Used- Alcoholuse Yes Comment: drinks a bottle of wine daily; sometimes morePrescriptions Prior to Admission:iv contrast (radiology procedure) CT ABD/PEL -Inject, intravenously, oncefor 1 dose.No IV access, insertsaline lock prior to the beginning ofsedation, infusion, injection of imaging exam. Discontinue saline lockpost exam. If Pt. has a central line or IVAD, may access foradministration according to linespecific nursing protocol. Once exam iscomplete flush line [...] by mouth once daily. Disp: Rfl: 09/18/2015 [id number] (PRILOSEC) 40 mg capsule Take 1 capsule by mouth once maryanne ly.(Patient taking differently: Take 40 mg by mouth twice daily.) Disp: 30capsule Rfl: 4 09/19/2015 at 0700METOPROLOL TARTRATE ORAL Take 25 mg by mouth. Disp: Rfl: 09/19/2015 [id number] HCl 20 mgtablet Take 40 mg by mouth once daily. [...] joint pain or swelling, back pain or musclepainHEMATOLOGY/LYMPHOLOGY: Negative for prolonged bleeding, bruising easily orswollen [...] or skindiscoloration. Good capillary refill., No ulcersNEURO: YZz1Wifcqil Vitals for the past 24 hrs: BP Temp Temp src Pulse Resp BjH01001/08/17 2301 151/92 36.4 ?C (97.6 ?F) Oral89 16 92 %There is no height or weight on file to calculate BMI.DATA:Diagnostic tests reviewed for today's visit:Most recent labs and imaging results.ASSESSMENT/PLAN61 years female PMH HTN, HLD, PUD,COPD, PSH L TAC with DEONNA 08/2015 whopresents with cramping abdominal pain associated with nausea andvomiting.Abdomen is moderately distended with LLQ ttp. S.Lactate 1. Concern forSBO.-Admission to [facility]-NPO, NGT-IVF @ 100 ml/hr-strict I AND O-Pain meds: tylenol and morphine-Zofran available PRN-KUB stat to confirm NGT placement-Lab, type and screen, stat-DVT prophylaxis: SCD and SQHSIGNATURE: Eloise Langley MD PATIENT NAME: Sofie AdrianDATE: January 08, 2017 : 11:15 PM PAGER/CONTACT #: [phone] HospitalMagnesiumon 75-42-4627Feioealtk6.7 mg/dLNormal1.7-2.6FMcLean HospitalComment on above: Performed By: #### CBC, PT, PTT, BMP, MG1, PHOS ####[facility] [place], [place] [phone] mg/dLNormal1.7-2.6 [facility] HospitalComment on above:Performed By: #### CBC, PT, PTT, BMP, MG1, PHOS ####[facility] [place], [place] [phone] NURSING PROGon [id number] PROGHNO ID: [id number]: Rosi (Rn) Elva Careyice: (none)Author Type: Registered NurseType: Nursing Progress NoteFiled: 01/09/2017 10:16 AMNote Text: Nursing Progress NotePatient Name: Sofie AdrianMRN: [id number] Location: [place] [address]/AH-TG5G-72 Daily Note:pt is axox3, on room air, up with assist. Ng tube in place.Plan for surgery today. No needs voiced at this time. Will continue tomonitor the patient. Updated daughter on patient's status, ok'd bypatient.[address] [place] [address] Adrian. 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 Rosi, KADEN [id number] note was completed by: Rosi Carey RNFairlawn Rehabilitation Hospital ID: [id number]: Melissa Saucedo (Rn) Salty RNService: (none)Author Type: Registered NurseType: Nursing Progress NoteFiled: 01/09/2017 5:07 AMNote Text: Nursing Progress NotePatient Name: Sofie AdrianMRN: [id number] Location: [place] [address]/EK-MM7G-67 0400 Patient complaining of abdominal pain 10/10 moaning at intervalsand holding her stomach. Patient last medicated with Dilaudid 0.5 mg qu4374. Patient states it doesn't last very long. Text message sent toSurgical resident to notify.0415 Patient medicated with oxycodone5 mg tablet as instructed bysurgical resident. NG clamped when patient took tablet.0515 NG reconnected to low suction. Patient states the Oxycodone noteffective for pain.This note was completed by: Melissa Pond RNNoal [facility] HospitalNURSING PRONO ID: [id number]: Melissa Saucedo (Rn) Salty RNService: (none)Author Type: Registered NurseType: Nursing Progress NoteFiled: 01/08/2017 11:01 PMNote Text: Nursing Progress NotePatient Name: Wilmer BradentonMRN: [id number] Location: [place] [address]/HN-FZ2X-11 Transfer Note:Patient transferred into room/unit [address] [facility] in stablecondition. Actions taken: No futher actions taken at this time. Willcontinue to monitor and check with patient. Call placed to surgicalresident for orders.This note was completed by: Melissa Pond RN [facility] HospitalOPERATIVE NOon [id number] NOHNO ID: [id number]: Adis LanderosService: General SurgeryAuthor Type: PhysicianType: Operative ReportFiled: 01/12/2017 2:34 PMNote Text:[facility] - Operative ReportSOFIE ADRIAN CDOB: 1955 AGE: 61 SEX: FMRN: [id number] ACCTNUM: [id number] SVC: INTM LOCATION: [id number] PHYSICIAN: Adis Landeros M.D.DATE OF PROCEDURE: 01/09/2017PREOPERATIVE DIAGNOSIS: Small bowel obstruction.POSTOPERATIVE DIAGNOSIS: Same. Strangulated internal hernia.NAME OF OPERATION: Diagnostic laparoscopy and lysis of adhesions.SURGEON: Adis Landeros M.D.PARTS RUNNER: Tanner Ordoñez M.D.ANESTHESIA: General.ESTIMATED BLOOD LOSS: Minimal.COMPLICATIONS: None immediate.DISPOSITION: Recovery in stable condition.INDICATIONS: Briefly, the patient is a 61-year-old female who hadunderwent laparoscopic total colectomy in the past for lower GI bleed.She presented to an outside hospital with severe abdominal pain, nausea,and vomiting. She was found to have small bowel obstruction [facility] was found to have someperitonitis and increased abdominal pain. Therefore, weelected toproceed to the operating room for diagnostic laparoscopy, possiblelaparotomy. The patientagreed to proceed, signed the informed consent.PROCEDURE: The [...] into the distal small bowel. We then ranthe small bowel from the pelvisall the way [...] measured about 30 cm, and we inserted aDopplerprobe into the abdominal cavity through the Emmanuel port, andunder direct visualization, we probed the antimesenteric border ofthis bowel, with audible palpable signal from the antimesenteric borderofthe entire questionable ischemic small bowel. We confirmed thatthe bowel was viable and was not necrosed. There was no evidence ofperforation. The bowel wall was thickened with some hemorrhagic ischemiawhich as stated above was resolving as we proceeded with the surgeryand with good triphasic dopplerable signal at the end of the case.With that, the abdomen was irrigated with 2 liters of normal margret ine.The returning effluent was completely clear. There was no evidenceof bile or succus, and the rest of the bowel appeared to be viablewithout any injury. Of note, the patient's liver appeared to becirrhotic with macronodular changes. With that, all ports removed under direct visualization. After we placed a drain in the pelvis, f63-Vfbdqf drain made to mature through the lower 5-mm port on the rightside of the abdomen. The drain was secured to the skin using 3-0nylon, and the subumbilical fascia was approximated cigrmxkkkex-dv-mzdcr 0 Polysorb suture. All port sites were infiltrated with subcu Marcaine, approximated with subcuticular 4-0 Biosyn, andthe application of Exofin. The patient was extubated, transferred torecovery in stable condition with all counts of sponges, needles, andinstruments correct at the end of the case. The patient immediatelyverbalized immediate relief from herabdominal pain upon waking upfrom surgery, and we will observe her hospital course after thisoperation. I am Dr. Landeros, the attending physician. I was presentthrough the entire operation.Adis Landeros M.D.General SurgeryDA:[id number]: 01/09/2017 15:07:23T: 01/10/2017 01:35:34Job #: [id number] HospitalPROGRESSon [id number] ID: [id number]: Tanner Dollice: General SurgeryAuthor Type: ResidentType: Progress NotesFiled: 01/09/2017 6:52 PMNote Text:Post-operative checkSubjective: No acute events. Pain controlled. No nausea/vomiting.Objective:Blood pressure 112/66, pulse 90, temperature 36.9 ?C (98.4 ?F),temperature source Oral, resp. rate 17, height 154.9 cm (5' 1 ), iicygn80.1 kg (141 lb 6.4 oz), SpO2 97 %.General: NAD, alert, orientedLungs: nonlabored breathingAbdomen: soft, nondistended, periincisional and left sided tenderness,incisions C/D/IExtremities: warm, well perfusedAssessment and plan:61 year old female with SBO and strangulated internal hernia s/plaparoscopic lysis of adhesions. Doing well- NPO with IV fluids- NG to LIWS- Morphine ATHLETIC EQUIPMENT CUSTODIAN, tylenol for pain- SCD's and SQH for DVT prophylaxis- Encourage incentive spirometry and ambulationTanner Ordoñez MDBaptist Medical Center South Surgery ResidentPager [phone] HospitalPROWAYNE HOSPITAL ID: [id number]: Adis LetiService: ColorectalAuthor Type: PhysicianType: Progress NotesFiled: 01/09/2017 12:21 PMNote Text:Sofie [id number] SERVICE: Teresa HollingsworthSUBJECTIVEPatient is in a lot of pain, writhing in her bedNG in place, with moderately thick outputNo flatusno BMOBJECTIVEI/O:Date 01/08/17 07 - 01/09/17 0659 01/09/17 07 - 01/10/17 0659Shift 9760-2105 2257-8035 3235-3393 24 Hour Total 1728-3744 8505-07163718-7889 24 Hour TotalINTAKE IV 524 524 NS 0.9%524 524 Shift Total 524 524OUTPUT Urine 300 300 350 350 Void (ml) 300 300 350 350 Tubes 100 100 GI Tube Output (GI Feed/Drain Nasogastric Tube Left Nare 01/08/17Present on Admission) 100 100 Shift Total 400 400 350 350Weight (kg) 64.1 64.1 64.1 64.1 64.1 64.124 hr Vitals:Temp Av.4 ?C (97.6 ?F)Min: 36.4 ?C (97.6 ?F) Max: 36.4 ?C (97.6?F)Pulse Av Min: 89 Max: 111Cuff BP Min: 122/72 Max:151/92Resp Av.3 Min: 16 Max: 17SpO2 Av.5 % Min: 92 % Max: 95 %Pain Score: 10/10Physical Exam:VS: BP 140/73 Pulse 96 Temp 36.4 ?C (97.6 ?F) (Oral) Resp 17 Ht154.9 cm (5' 1 ) Wt 64.1 kg (141 lb 6.4 oz) SpO2 94% BMI 26.72 kg/b1HUIIHQQ: Alert, no distress, cooperativeLUNGS: Lungs clear to auscultation, Good diaphragmatic excursionCARDIAC: Normal S1 and S2; no rubs, murmurs, orgallopsABDOMEN: Abdomen soft, moderately distended, diffusely tender with MPT inLLQ, BS increased, No masses or organomegaly, NG tube with bileous outputEXTREMITIES: Extremities normal, no deformities, edema, clubbing or skindiscoloration.NEURO: SWh3Fhoq:Current Facility-Administered Medications:pip eracillin-tazobactam 3.375 g in dextrose (iso-osmotic) 50 mL (ZOSYN)3.375 g INTRAVENOUS q 6 H Bessie S (Pa) Miglionicomorphine ATHLETIC EQUIPMENT CUSTODIAN 1 mg/mL in NaCl 0.9% 100 mL INTRAVENOUS CONTINUOUS Bessie S(Pa) Miglionicomorphine 1 mg/mL ATHLETIC EQUIPMENT CUSTODIAN CLINICIAN DOSE 1 mg 1 mg INTRAVENOUS q 6 H PRNMelissa S (Pa) MiglionicoF LUoxetine 40 mg cap(s) (PROzac) 40 mg ORAL DAILY Sahned (Res) MD Korin40 mg at 01/09/17 0757NaCl 0.9% iv infusion 125 mL/hr INTRAVENOUS CONTINUOUS Bessie S (Pa)Miglionico Last Rate: 125 mL/hr at 01/09/17 0755 125 mL/hr at 692786axmvyuiegfz 4 mg tab(s) (ZOFRAN) 4 mg ORAL q 6 H PRN Sahned (Res) MD KorinOrondansetron (PF) 4 mg injection (ZOFRAN) 4 mg INTRAVENOUS q 6 H PRN Sahned(Res) Flako Langleyminophen 650 mg tab(s) (TYLENOL) 650 mg ORAL q 6 H PRN Sahned (Res)MD Korinheparin 5,000Units injection 5,000 Units SUBCUTANEOUS q 12 H Sahned (Res)MD Korin 5,000 Units at 01/09/17 0757metoprolol tartrate (short acting) 12.5 mg tab(s) (LOPRESSOR) 12.5 mg ORALq 12 H Sahned (Res) MD Korin 12.5 mg at 01/09/17 0757Labs:CBC, Coags, BMP, Mg, PhosRecent Labs 01/08/588050FKY 13.84* 10.34HB 12.3 12.4HCT 37.2 36.7PLT 180 186INR 1.1 1.1APTT 26.8 27.7NA 138 136K 3.8 3.8CHLOR 102 100CO2 18* 20*BUN 12 13CREAT 0.58* 0.54*GLUC 171* 159*CA 8.6 8.8MG 1.7 1.9P 3.0 3.9Liver Function,Amylase, AND LipaseImaging:XR abd1. ?NG tube coiled within the gastric fundus2. ?A few mildly distended gas filled loops of small bowel in the upperabdomen.ASSESSMENT AND PLAN61 years female PMH HTN,HLD, PUD, COPD, PSH L TAC with DEONNA 08/2015presenting with signs, symptoms and diagnostic imaging find ingscommensurate with SBO.- Pre-opped in case surgical intervention is warranted- IVF: 125 cc/hr ofNS- Antibiotics: Start Zosyn D1- Diet : NPO- Pain management: Start Morphine ATHLETIC EQUIPMENT CUSTODIAN, Tylenol- Nausea management: Zofran- DVT prophylaxis: Heparin- Trujillo status: Please place trujillo for better hemodynamic monitoring- Encourage IS and ambulation- Strict IANDOs- Seen and discussed with senior resident, will discuss with staffAkhil Weathers MD MPHPGY1, Department of General SurgeryPager: Alex TeamSeptember 2016 9:12 AMSurgery attendingI have seen and examined [...] and other complications related to surgeryand/or anesthesia.Adis Jaimegladis Evan Landeros, MDSeptember 2016 12:20 PMNormalTrimble Hospital Phosphoruson 87-62-9018Lraacczgs4.0 mg/dLNormal2.5-4.5[facility] HospitalComment on above:Performed By: #### CBC, PT, PTT, BMP, MG1, PHOS ####[place] [id number] [place], [place] [phone] mg/dL Normal2.5-4.5[facility] HospitalComment on above:Performed By: #### CBC, PT, PTT, BMP, MG1, PHOS ####[place] [address] [place], [place] [phone] 10-87-0123DVK Coag RelTime (Bld)1.1 {INR}Normal 0.9-1.3[facility] HospitalComment on above:Result Comment: Vitamin K Antagonist (VKA) Therapeutic Range: INR 2 to 3 (Target INR of 2.5)Note: For patients treated with VKA drugs, such as warfarin, the [employer] 2012 Guideline recommends a therapeutic INR range of 2 to 3 (target INR of 2.5). This recommendation includes high-risk patients with antiphospholipid syndrome with previous arterial or venous thromboembolism, current-generation mechanical or bioprosthetic aortic heart valve replacement.Note: Patients with mechanical aortic valve replacement and additional risk factors for thromboembolic events (atrialfibrillation, previous thromboembolism, LV dysfunction, hypercoagulable conditions) or an older gene ration mechanical AVR (i.e., ball in-Cage) or any mechanical MVR should have a INR therapeutic range of 2.5 to 3.5 (target INR of 3).Dinesh LOVE, et al. Chest 2012, 141:7S-47SNadeen LIU, et al. JAC 2017, 70: 252-289Performed By: #### PT, PTT ####[address] [phone] PT Sec11.6 secNormal9.7-13.0[facility] HospitalComment on above:Performed By: #### PT, PTT ####[address] [phone] INR Coag RelTime (Bld)1.1 {INR}Normal0.9-1.3[facility] HospitalComment on above: Result Comment: Vitamin K Antagonist (VKA) Therapeutic Range: INR 2 to 3 (Target INR of 2.5)Note: For patients treated with VKA drugs, such as warfarin, the [employer] 2012 Guideline recommends a therapeutic INR range of 2 to 3 (target INR of 2.5). This recommendation includes high-risk patients with antiphospholipid syndrome with previous arterial or venous thromboembolism, current-generation mechanical or bioprosthetic aortic heart valve replacement.Note: Patients with mechanical aortic valve replacement and additional risk factors for thromboembolic events (atrialfibrillation, previous thromboembolism, LV dysfunction, hypercoagulable conditions) or an older gene ration mechanical AVR (i.e., ball in-Cage) or any mechanical MVR should have a INR therapeutic range of 2.5 to 3.5 (target INR of 3).Dinesh GH, et al. Chest 2012, 141:7S-47SNishmarielena RA, et al. [facility] 2017, 70: 252-289Performed By: #### CBC, PT, PTT, BMP, MG1, PHOS ####[address] [phone] Sec11.4 secNormal9.7-13.0[facility] HospitalComment on above:Performed By: #### CBC, PT, PTT, BMP, MG1, PHOS ####[address] [phone] Coag RelTime (Bld)1.1 {INR} Normal0.9-1.3[facility] HospitalComment on above:Result Comment: Vitamin K Antagonist (VKA) Therapeutic Range: INR 2 to 3 (Target INR of 2.5)Note: For patients treated with VKA drugs, such as warfarin, the [employer] 2012 Guideline recommends a therapeutic INR range of 2 to 3 (target INR of 2.5). This recommendation includes high-risk patients with antiphospholipid syndrome with previous arterial or venous thromboembolism, current-generation mechanical or bioprosthetic aortic heart valve replacement.Note: Patients with mechanical aortic valve replacement and additional risk factors for thromboembolic events (atrialfibrillation, previous thromboembolism, LV dysfunction, hypercoagulable conditions) or an older gene ration mechanical AVR (i.e., ball in-Cage) or any mechanical MVR should have a INR therapeutic range of 2.5 to 3.5 (target INR of 3).Genevatt GH, et al. Chest 2012, 141:7S-47SNishimura RA, et al. [facility] 2017, 70: 252-289Performed By: #### CBC, PT, PTT, BMP, MG1, PHOS ####[place] [phone] Sec11.1 secNormal9.7-13.0[facility] HospitalComment on above:Performed By: #### CBC, PT, PTT, BMP, MG1, PHOS ####[place] [address]Type and Screenon 01-09-2017 ABO/RH(D)NegativeNormalTrimble HospitalComment on above:Performed By: #### TSCR ####[place] [address]Antibody ScreenNegativeNormalTrimble HospitalComment on above:Performed By: #### TSCR ####[place] [address] Urinalysis with Microscopicon 86-68-1744Diktcpzkx, UrineNegativeNormalNegative [facility]ble HospitalComment on above:Performed By: #### UAWMIC ####[place] [address]476[address]71[address]CommentsSEE COMMENT NormalFataravista behavioral health center HospitalComment on above:Result Comment: Microscopic Examination PerformedPerformed By: #### UAWMIC ####[place] [address]476[address]71[address]Erythrocytes (RBC)RareCritically abnormal NegativeTrimble HospitalComment on above:Performed By: #### UAWMIC ####[place] [address]476[address]71[address]Hemoglobin mass conc (Bld)NegativeNormalNegativeTrimble HospitalComment on above:Performed By: #### UAWMIC ####[place] [address] LeukestTraceCritically abnormalNegativeTrimble HospitalComment on above: Performed By: #### UAWMIC ####[place] [address]476-71[address]pH of blood6.0 [pH]Normal5.0-8.0[facility] HospitalComment on above:Performed By: #### UAWMIC ####[place] [address]Protein, UrineNegativeNormalNegative [facility] HospitalComment on above:Performed By: #### UAWMIC ####[place] [address]Specific [place], Ur 1.932Qjxhch6.005-1.030[facility] HospitalComment on above:Result Comment: Result checked and verifiedPerformed By: #### UAWMIC ####[place] [address]Urine, clarityHazyCritically abnormalClear [facility]ble HospitalComment on above:Performed By: #### UAWMIC ####[place] [address]Urine, colorYellow NormalYellowTrimble HospitalComment on above:Performed By: #### UAWMIC ####[place] [address]Urine, epithelial cells in sedimentSEE COMMENTCritically abnormalNegativeTrimble HospitalComment on above:Result Comment: RareSquamous Epithelial CellsPerformed By: #### UAWMIC ####[place] [address]Urine, glucose presenceNegativeNormalNegativeTrimble Hospital Comment on above:Performed By: #### UAWMIC ####[place] [address]Urine, ketones presenceNegativeNormal NegativeFataravista behavioral health center HospitalComment on above:Performed By: #### UAWMIC ####[place] [address]Urine, mucus presence in sedimentPresentNormalTrimble HospitalComment on above:Performed By: #### UAWMIC ####[place] [address] Urine, nitrite presenceNegativeNormalNegativeTrimble HospitalComment on above: Performed By: #### UAWMIC ####[place] [address]Urine, urobilinogen<2.0Normal<2.0[facility] HospitalComment on above:Performed By: #### UAWMIC ####[place] [address]WBC (Leukocytes)5-10Critically abnormal NegativeTrimble HospitalComment on above:Performed By: #### UAWMIC ####[place] [address]XR ABDOMEN 1V SUPINE on 82-90-8265UA ABDOMEN 1V SUPINE* * *Final Report* * *DATE OF EXAM: Jan 09 2017 12:13AM FVX 5289 - XR ABDOMEN 1V SUPINE / REASON: Encounter for imaging study to confirm nasogastric (NG) tube placement* * * * Physician Interpretation * * * * EXAM: Supine abdominal radiograph(s)HISTORY: Check NG tubeplacementCOMPARISON: None.FINDINGS: Supine AP view the abdomen demonstrates a few mildly distended gas filled loops of small bowel in the upper abdomen. NG tube coiled within the gastric fundus. Lungbases are clear.. The visualized soft tissues are unremarkable. There are no abnormal calcifications. The bones are within normal limits for age. Please note this exam does not evaluate for free intraperitoneal air.IMPRESSION:1. NG tube coiled within the gastric fundus2. A few mildly distended gas filled loops of small bowel in the upper abdomen.Seafood Clerk: GIO Transcribe Date/Time: [id number] 12:19ADictated by : GLENN MARTINEZ MDThilois examination was interpreted and the report reviewed and electronically signed by: GLENN MARTINEZ MD on Jan 09 2017 12:20AM [id number] HospitalXR CHEST 1V FRONTALon 47-18-7879PP CHEST 1V FRONTAL* * *Final Report* * *DATE OF EXAM: Jan 09 2017 5:45AM FVX 5290 - XR CHEST 1V FRONTAL / REASON: Preop cardiovascular exam * * * * Physician Interpretation * * * * CHESTONE VIEWIndications: Preop cardiovascular examComparison: Chest CT 11/09/2013RESULTS:1. Lines, Tubes, and Devices: The tip of a feeding tube is below the diaphragm over the gastric body.2. Lungs and Pleura: The lung volumes are diminished. There is mild obscuration of the left diaphragm.3. Cardiomed iastinal silhouette: Within normal limits.4. Other: -IMPRESSION: Slightly diminished lung volumes with suggestion of mild left base atelectasis.Seafood Clerk: GIO Transcribe Date/Time: Jan 09 2017 6:10ADictated by : SHAAN RADER MDThilois examination was interpreted and the report reviewed and electronically signed by: SHAAN RADER MD on Jan 09 2017 6:13AM [id number] HospitalHOSPon [id number] Patient:Sofie Adrian CMRN: Height:5' 1 (1.549 m)Weight:141 lb 6.4 oz (64.139 kg)Outpatient Medications as of 01/09/17:amitriptyline (ELAVIL) 25 mg tabletcelecoxib (CELEBREX) 200 mg capsulehydroCHLOROthiazide (HYDRODIURIL, ESIDRIX) 25 mg tabletHYDROcodone-acetaminophen (NORCO) 5-325 mg per tabletmelox icam (MOBIC) 15 mg tabletrOPINIRole (REQUIP) 2 mg tabletfebuxostat (ULORIC) 40 mg tabalbuterol HFA (VENTOLIN HFA) 90 mcg/actuation inhaleriv contrast (radiology procedure)enteric contrast (radiology procedure)atorvastatin (LIPITOR) 10 mg tabletCetirizine 10 mg capOmeprazole (PRILOSEC) 40 mg capsuleM ETOPROLOL TARTRATE ORALFLUoxetine HCl 20 mg tablettraMADol 50 mg tabletOTC PRODUCTAdmission/Clinic Administered Medications as of 01/09/17:piperacillin- tazobactam 3.375 g in dextrose (iso-osmotic) 50 mL (ZOSYN)morphine ATHLETIC EQUIPMENT CUSTODIAN 1 mg/mL in NaCl 0.9% 100 mLmorphine 1 mg/mL ATHLETIC EQUIPMENT CUSTODIAN CLINICIAN DOSE 1 ysWXLplibejp08 mg cap(s) (PROzac)NaCl 0.9% iv infusionondansetron 4 mg tab(s) (ZOFRAN)ondansetron (PF) 4 mg injection (ZOFRAN)acetaminophen 650 mg tab(s) (TYLENOL)heparin 5,000 Units injectionmetoprolol tartrate(short acting) 12.5 mg tab(s) (LOPRESSOR)Problem List:Iron deficiency anemia [D50.9]PUD (peptic ulcer disease) [K27.9]Carotid stenosis [I65.29]Vertigo [R42]Tachycardia [R00.0]BPV (benign positional vertigo) [H81.10]HLD (hyperlipidaemia) [E78.5]Rectal bleeding [K62.5]Exertional dyspnea [R06.09]Emphysema of lung (HCC) [J43.9]Alcohol abuse [F10.10]Status post surgery [Z98.890]SBO (small bowel obstruction) (HCC) [K56.69]Allergies:PenicillinsSulfa (Sulfonamide Antibiotics)Date Verified: 01/09/17Lab ValuesLab Value Units Date High LowPOTA* 3.8 mmol/L 01/09/2017 5.0 3.5HEMA* 37.2 % 01/09/2017 46.0 36.0Progress Notes (FV PK3B):Melissa Pond, RN, RN 01/08/2017 11:01 PM Signed Nursing Progress NotePatient Name: Sofie AdrianMRN: [id number] Location: [facility]/VP-PM5F-48 Transfer Note:Patient transferred into room/unit [address] [facility] in stablecondition. Actions taken: No futher actions taken at this time. Will continueto monitor and check with patient. Call placed to assistant professor surgical technology for orders.This note wascompleted by: Bryan Poon MD, MD 01/09/2017 12:05 [...] frequent BM on Thursday (10 times). She wentto ED at 8:30 pm on the sameday and they scanned her then discharged but she returned back next morning forworsenuing pain where she got another CT scan suggestive of SBO. She wasreferred from OSH toFV for further treatment.FUNCTIONAL STATUS: IndependentPAST MEDICAL HISTORYDiagnosis Date- Acid reflux- Alcohol abuse Bottle of wine daily- Arthritis- Carotid stenosis medical management- COPD (chronic obstructive pulmonary disease) (HCC) mild obstruction on PFT's 09/2013- Former smoker 10 pack years, quit 2003- High cholesterol- History of rheumatic fever- Hypertension- PUD (peptic ulcer disease)02/2014- Tachycardia- Ulcer (HCC)- VertigoPAST SURGICAL HISTORYProcedure Laterality Date- COLONOSCOPY- MIDLINE INSERTION/CONSULT 08/10/2015- REMOVE TONSILS/ADENOIDS,<12 Y/O as child- SINUS SURGERY HX age 35- TUBAL LIGATION HX age 19FAMILY HISTORYProblem Relation Age of Onset- Heart Mother- Heart Father- Lipids Father- Diabetes Father- Hypertension Mother- Arthritis SisterSocial HistorySubstance Use Topics- Smoking status: Former Smoker Packs/day: 0.50 Years: 20.00 Types: Cigarettes Quit date:07/27/2003- Smokeless tobacco: Never Used- Alcohol use Yes [...] Once exam is complete flush line and de- accessaccording to line specific nursing protocol in the CT contrast administrationguidelines link. Disp: 1 Each Rfl: 0enteric contrast (radiology procedure) For CT ABD/PEL W IVCON Routine orderAdminister, As Directed One Time Only, via Oral, Rectal, both Oral and Rectal,Enteric Tube, Stoma or Indwelling Catheter, Enteric Contrast as designated perenteric contrast guidelines Disp:1 Each Rfl: 0atorvastatin (LIPITOR) 10 mg tablet [...] orpalpitationsGU: No history of dysuria, frequency or incontinenceMUSCULOSKELETAL:Negative for joint pain or swelling, back pain or muscle painHEMATOLOGY/LYMPHOLOGY: Negative for prolonged bleeding, bruising easily orswollen nodesENDOCRINE: Negative for cold or heat intolerance, po lyuria, polydipsia andgoiterNEURO: No history of headaches, syncope, paralysis, seizures or tremorsOBJECTIVEPHYSICAL EXAM:GENERAL: Alert, no distress, cooperativeHEAD/SINUSES: No significant findingsLUNGS: Lungs clear to auscultation, Good diaphragmatic excursionCARDIAC: Normal S1 and S2; no rubs, m urmurs, or gallopsABDOMEN: Abdomen soft, moderately distended, tender LLQ, BS normal, No masses ororganomegalyEXTREMITIES: Extremities normal, no deformities, edema, clubbing or skindiscoloration. Good capillary refill., No ulcersNEURO: WXr5Pcbbxsp Vitals for the past 24 hrs: BP Temp Temp src PulseResp UlD842//17 2301 151/92 36.4 ?C (97.6 ?F) Oral 89 16 92 %There is no height or weight on fileto calculate BMI.DATA:Diagnostic tests reviewed for today's visit:Most recent labs and imaging results.ASSESSMENT/PLAN61 years female PMH HTN, HLD, PUD, COPD, PSH L TAC with DEONNA 08/2015 who presentswith cramping abdominal pain associated with nausea and vomiting. Abdomen ismoderately distended with LLQ ttp. S.Lactate 1. Concern for SBO.-Admission to [facility]-NPO, NGT-IVF @ 100 ml/hr- strict I AND O-Painmeds: tylenol and morphine-Zofran available PRN-KUB stat to confirm NGT placement-Lab, type and screen, stat-DVT prophylaxis: SCD and SQHSIGNATURE: Eloise Langley MD PATIENT NAME: Sofie AdrianDATE:January 08, 2017 : 11:15 PM PAGER/CONTACT #: [phone] Anibal Pond RN, RN 01/09/2017 5:07 AM Addendum Nursing Progress NotePatient Name: Sofie AdrianMRN: [id number] Location: [place] [address]/[id number] 0400 Patient complaining of abdominal pain 02/03 moaning at intervals andholding her stomach.Patient last medicated with Dilaudid 0.5 mg at 0247.Patient states it doesn't last very long. Text message sent to Surgical residentto notify.0415 Patient medicated with oxycodone 5 mg tablet as instr ucted by surgicalresident. NG clamped when patient took tablet.0515 NG reconnected to low suction. Patient states the Oxycodone not effectivefor pain.This note was completed by: Melissa Pond, RNPrevious Brielle Landeros MD 01/09/2017 12:21 PM AddendumSofie [id number] SERVICE: Teresa HollingsworthSUBJECTIVEPatient is in a lot of pain, writhing in her bedNG in place, with moderately thick outputNo flatus no BMOBJECTIVEI/O:Date 01/08/17699 - 01/09/17 0659 01/09/17699 - 01/10/17 0659Shift 7713-5811 0275-9749 7045-3995 24 Hour Total 7617-6261 4487-6382 2300-750420 Hour TotalINTAKE IV 524 524 NS 0.9% [...] ?C (97.6 ?F) (Oral) Resp 17 Ht154.9 cm(5' 1 ) Wt 64.1 kg (141 lb 6.4 oz) SpO2 94% BMI 26.72 kg/s5SEQMZEX: Alert, no distress, cooperativeLUNGS: Lungs clear to auscultation, Good diaphragmatic excursionCARDIAC: Normal S1 andS2; no rubs, murmurs, or gallopsABDOMEN: Abdomen soft, moderately distended, diffusely tender with MPT in LLQ,BS increased, No masses or organomegaly, NG tube with bileous outputEXTREMITIES: Extremities normal, no deformities, edema, clubbing or skindiscoloration.NEURO: PSy1Pwpq:Current Facility-Administered Medications:piperacillin-tazobactam 3.375 g in dextrose (iso-osmotic) 50 mL (ZOSYN) 3.375gINTRAVENOUS q 6 H Bessie S (Pa) Miglionicomorphine ATHLETIC EQUIPMENT CUSTODIAN 1 mg/mL in NaCl 0.9% 100 mL INTRAVENOUS CONTINUOUS Bessie S (Pa)Miglionicomorphine 1 mg/mL ATHLETIC EQUIPMENT CUSTODIAN CLINICIAN DOSE 1 mg 1 mg INTRAVENOUS q 6 H PRNMelissa S(Pa) MiglionicoFLUoxetine 40 mg cap(s) (PROzac) 40 [...] 01/09/17 0757Labs:CBC, Coags, BMP, Mg, PhosRecent Labs 62345WBC 13.84* 10.34HB 12.3 12.4HCT 37.2 36.7PLT 180 186INR 1.1 1.1APTT 26.8 27.7NA 138 136K 3.8 3.8CHLOR 102 100CO2 18* 20*BUN 12 13CREAT 0.58* 0.54*GLUC 171* 159*CA 8.6 8.8MG 1.7 1.9P 3.0 3.9Liver Function, Amylase, AND LipaseImaging:XR abd1. ?NG tube coiled within the gastric fundus2. ?A few mildly distended gas filled loops of small bowel in the upperabdomen.ASSESSMENT AND PL AN61 years female PMH HTN, HLD, PUD, COPD, PSH L TAC with DEONNA 08/2015 presentingwith signs, symptomsand diagnostic imaging findings commensurate with SBO.- Pre-opped in case surgical intervention is warranted- IVF: 125 cc/hr of NS- Antibiotics: Start Zosyn D1- Diet : NPO- Pain management: Start Morphine ATHLETIC EQUIPMENT CUSTODIAN, Tylenol- Nausea management: Zofran- DVT prophylaxis: Heparin- Trujillo status: Please place trujillo for better hemodynamic monitoring- Encourage IS and ambulation- Strict IANDOs- Seen and discussed with senior resident, will discuss with staffAkhil Weathers MD MPHPGY1, Department of General SurgeryPaprescott va [facility]: [facility]2016 9:12 AMSurgery attendingI have seen and examined the patient with the house staff. Agree with keycomponents of resident's note, care plan and decision making for the daydiscussed. Pt w/ increased pain and persistent SBO this AM. Will proceed w/diag lap/poss laparotomy. Aspects of the procedure explained to pt in detailsincluding all risks, benefits, and alte rnatives. SHe understands the risks ofbleeding, infection, bowel injury and possibility of conversion to an openprocedure and other complications related to surgery and/or anesthesia.Adis Landeros, Evan Landeros, [facility] 12:20 PMPrevious Debby Carey RN, RN 01/09/2017 10:16 AM Addendum Nursing Progress NotePatient Name: Sofie AdrianMRN: [id number] Location: [place] [address]AD-GB5P-[id number] __Daily Note:pt is axox3, on room air, up with assist. Ng tube in place. Plan forsurgery today. No needs voiced at thistime. Will continue to monitor thepatient. Updated daughter on patient's status, ok'd by patient.1016 Jake [place]. 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 KADEN Aranda [id number] note was completed by: Rosi Carey, RNPrevious Yoan Aguilar MD 01/09/2017 11:54 AM SignedREGIONAL ANESTHESIOLOGY DAY OF SURGERY NOTEPATIENT NAME: Sofie AdrianMRN: [id number]: 1955Procedure(s) (LRB):EXPLORATORY LAPAROTOMY ADULT (N/A)LAPAROSCOPY DIAGNOSTIC (N/A)Surgeon(s): Adis LanderosEstimated body mass index is 26.72 kg/(m2) [...] (Peptic Ulcer Disease)Carotid StenosisVertigoTachycardiaBpv (Benign Positional Vertigo)Hld (Hyperlipidaem ia)Rectal BleedingExertional DyspneaEmphysema of Lung (Hcc)Alcohol AbuseStatus Post [...] on file prior to encounter.Current Outpatient Prescriptions onFile Prior to Encounter:iv contrast (radiology procedure) CT [...] guidelinesatorvastatin (LIPITOR) 10 mg tablet Take 10 mgby mouth once daily.Cetirizine 10 mg cap Take [...] Takes 2 PO QDInpatient medications reviewed in [facility].I have interviewed and examined the patient. I have reviewed the medical recordand/or the pre-anesthesia evaluation, pertinent labs, and test results.Significant changes in the patient's condition since the History and Physical,not otherwise documented in primary service progress notes: NoTcoffey county hospital contains updated information obtained within 48 hours of Surgery/Procedure.SIGNATURE: Joe Aguilar MD PATIENT NAME: Sofie Lu: January 09, 2017 : 11:50 AM PAGER/CONTACT #:Normal [facility] HospitalOT-XR KUB 1 VIEW IMPORTon [id number]-XR KUB 1 VIEW IMPORT Images were obtained outside of [id number]/PELVIS W CON IMPORTon [id number]-CT ABD/PELVIS W CON IMPORTImages were obtained outside of [facility] [id number]-CT ABD/PELVIS WO CON IMPORTon 26-56-3781KY-CT ABD/PELVIS WO CON IMPORTImages were obtained outside of [facility] [id number] Vital Signs Date TimeVital SignValuePerforming MifncnjpoRihnorsp59-06-9720 11:27-0400Body depwfn712.8 cmMarc Dolce DPM FACFAS Work Phone: [facility] HospitalJojdrhloiv55-46-6011 11:27-0400Body mass index (BMI) [Ratio]25.53 kg/m2Marc Dolce DPM FACFAS Work Phone: [facility] JoplinMioeadkfqa41-90-1385 11:27-0400Body lbqeok00.52 kgMarc Dolce DPM FACFAS Work Phone: [facility] HospitalTcsiioqzqb54-93-0372 11:27-0400Diastolic blood inugbtel36 mm[Hg]Dayton Ozuna DPM FACFAS Work Phone: [facility] HospitalOgiujgfmzt36-02-8449 11:27-0400Heart rate66 /min Dayton Ozuna DPM FACFAS Work Phone: [facility] HospitalQdsbkffhks70-58-3706 11:27-0400Systolic blood jwtmifem106 mm[Hg]Dayton Ozuna DPM FACFAS Work Phone: [facility] HospitalKgutendixk89-78-8643 10:38-0400Body mass index (BMI) [Ratio]25.09 kg/m2Lisa Barberhholz ACCOUNTANT CONTROLLER Work Phone: [facility] HospitalNsfmaaauet02-54-8018 10:38-0400Body temperature 98.49 [degF]Rosario Claribelz ACCOUNTANT CONTROLLER Work Phone: [facility] HospitalVnsapntxwo67-92-0974 10:38-0400Body amzcyl28.71 kgLisa Barberhholz ACCOUNTANT CONTROLLER Work Phone: [facility] HospitalUpmnkbprqq95-40-8902 10:38-0400Diastolic blood gjslpefl69 mm[Hg]Rosario Matiasholz ACCOUNTANT CONTROLLER Work Phone: [facility] HospitalDqvxvqxdga10-24-0392 10:38-0400Heart rate68 /min Rosario Matiasholz ACCOUNTANT CONTROLLER Work Phone: [facility] HospitalHhooixhiyi18-66-8856 10:38-0400Respiratory rate18 /minLisa Barberhholz ACCOUNTANT CONTROLLER Work Phone: [facility] HospitalMijqnuokbl51-02-2863 10:38-4957KuO4% (BldA) [Mass fraction]97 %Rosario Barberhholz ACCOUNTANT CONTROLLER Work Phone: [facility] HospitalAemdlucdev25-88-8345 10:38-0400Systolic blood kyfssxgt796 mm[Hg]Rosario Barberhholz ACCOUNTANT CONTROLLER Work Phone: [facility] HospitalKihjrblaja18-27-8059 15:57-0500Body .3 cmLisa Barberhholz ACCOUNTANT CONTROLLER Work Phone: [facility] HospitalFesmbpuboa23-09-7485 15:57-0500Body mass index (BMI) [Ratio]25.51 kg/m2Lisa Matiasholz ACCOUNTANT CONTROLLER Work Phone: [facility] HospitalVlklrvanua24-57-3090 15:57-0500Body temperature 98.8 [degF]Rosario Matiasholz ACCOUNTANT CONTROLLER Work Phone: [facility] HospitalBmpyapoufg84-38-2406 15:57-0500Body kdmebv23.61 kgLisa Matiasholz ACCOUNTANT CONTROLLER Work Phone: [facility] HospitalWjvpyamacj09-73-7917 15:57-0500Diastolic blood kqtrnlwy87 mm[Hg]Rosario Matiasholz ACCOUNTANT CONTROLLER Work Phone: 1(415)[facility]-[address] [place], [place] [address]Nodmiuzkni99-61-4439 15:57-0500Heart rate84 /min Rosario Matiasholz ACCOUNTANT CONTROLLER Work Phone: 1(445)[facility] [place], [place] [address]Cqxnriynfu48-49-6800 15:57-0500Respiratory rate19 /minLisa Matiasholz ACCOUNTANT CONTROLLER Work Phone: [facility] HospitalJfuwrhuwmk57-95-0502 15:57-1624YlX5% (BldA) [Mass fraction]98 %Rosario Matiasholz ACCOUNTANT CONTROLLER Work Phone: [facility] HospitalPulkzrgntj61-06-7937 15:57-0500Systolic blood zqohlaln707 mm[Hg]Rosario Matiasholz ACCOUNTANT CONTROLLER Work Phone: 1(423)[address] [place], [place] [address]Ovvsiclxyj25-35-3852 13:23-0500Body bwtwle165.3 cmLisa Matiasholz ACCOUNTANT CONTROLLER Work Phone: [facility] HospitalFgzjbpqvxd14-53-9810 13:23-0500Body mass index (BMI) [Ratio]25.3 kg/m2Lisa Barberhholz ACCOUNTANT CONTROLLER Work Phone: [facility] HospitalBoaotexkrv07-16-9206 13:23-0500Body temperature 97.59 [degF]Rosario Matiasholz ACCOUNTANT CONTROLLER Work Phone: 1(293)053-[address] [place], [place] [address]Pxcgfvaxnc24-56-5632 13:23-0500Body ilashf78.16 kgLisa Salcedoholz ACCOUNTANT CONTROLLER Work Phone: [facility] HospitalVnebzyzdkr44-21-1575 13:23-0500Diastolic blood iewjmcaf90 mm[Hg]Rosario Matiasholz ACCOUNTANT CONTROLLER Work Phone: [facility] HospitalOonqufylst50-78-5428 13:23-0500Heart rate78 /min Rosario Matiasholz ACCOUNTANT CONTROLLER Work Phone: [facility] HospitalBpbsxdkbou77-42-4895 13:23-0500Respiratory rate18 /minLisa Matiasholz ACCOUNTANT CONTROLLER Work Phone: [facility] HospitalWtvdzdkcek64-55-2279 13:23-2854IoC1% (BldA) [Mass fraction]98 %Rosario Claribelz ACCOUNTANT CONTROLLER Work Phone: [facility] HospitalQxdrqhdvto80-62-3899 13:23-0500Systolic blood bzbyzgef524 mm[Hg]Rosario Matiasholz ACCOUNTANT CONTROLLER Work Phone: [place] [address]Ogbselyqzz73-59-5681 14:24-0500Body fnqgmo278.3 cmLisa Matiasholz ACCOUNTANT CONTROLLER Work Phone: [place] [address]Mvcbmxxxlw68-61-4099 14:24-0500Body mass index (BMI) [Ratio]25.39 kg/m2Dorothysa Matiasholz ACCOUNTANT CONTROLLER Work Phone: [facility] HospitalVrtzxpngsr54-84-9460 14:24-0500Body temperature 98.71 [degF]Rosario Matiasholz ACCOUNTANT CONTROLLER Work Phone: [place] [address]Dtghotqsrm59-35-1339 14:24-0500Body cukxpt36.34 kgLisa Matiasholz ACCOUNTANT CONTROLLER Work Phone: [place] [address]Bqermpjmqo33-95-6579 14:24-0500Diastolic blood lhonvwyc75 mm[Hg]Rosario Matiasholz ACCOUNTANT CONTROLLER Work Phone: [place] [address]Enezvrjnga23-30-7216 14:24-0500Heart rate69 /min Rosario Matiasholz ACCOUNTANT CONTROLLER Work Phone: 1(475)253-[address] [place], [place] [address]Fiaahgeyol60-61-6119 14:24-0500Respiratory rate19 /minLisa Matiasholz ACCOUNTANT CONTROLLER Work Phone: [facility] HospitalAseryhuhih98-44-0905 14:24-7107AuG8% (BldA) [Mass fraction]98 %Rosario Claribelz ACCOUNTANT CONTROLLER Work Phone: [facility] HospitalXmowjvabqt91-48-7508 14:24-0500Systolic blood ynccwseo721 mm[Hg]Rosario Matiasholz ACCOUNTANT CONTROLLER Work Phone: [facility] HospitalRwysyhukxo81-14-8240 13:30-0500Body tcoezm555.3 cmLisa Matiasholz ACCOUNTANT CONTROLLER Work Phone: [facility] HospitalDtlowbnjed09-56-3866 13:30-0500Body mass index (BMI) [Ratio]28.9 kg/m2Lisa Matiasholz ACCOUNTANT CONTROLLER Work Phone: [facility] HospitalOinlzabgnf75-87-3272 13:30-0500Body temperature 97.11 [degF]Rosario Claribelz ACCOUNTANT CONTROLLER Work Phone: [facility] HospitalQnukhutpzj27-36-6946 13:30-0500Body edknzq99.87 kgLisa Matiasholz ACCOUNTANT CONTROLLER Work Phone: [facility] HospitalXgaiqkrttc14-84-3085 13:30-0500Diastolic blood kfzxkoxv88 mm[Hg]Rosario Matiasholz ACCOUNTANT CONTROLLER Work Phone: [facility] HospitalOxurxewsti07-75-8114 13:30-0500Heart rate75 /min Rosario Matiasholz ACCOUNTANT CONTROLLER Work Phone: [place] [address]Dgpespfxkn04-96-7039 13:30-0500Respiratory rate18 /minLisa Matiasholz ACCOUNTANT CONTROLLER Work Phone: [place] [address]Vqmbzsxomz81-64-9557 13:30-9838SjN3% (BldA) [Mass fraction]95 %Rosario Matiasholz ACCOUNTANT CONTROLLER Work Phone: [facility] HospitalGfculrcjjw15-25-7711 13:30-0500Systolic blood coyeguqy741 mm[Hg]Rosario Barberhholz ACCOUNTANT CONTROLLER Work Phone: [facility] Encounters Encounter DateEncounter TypeCare ProviderFacilityStart: 01-09-2025 End: 80-45-5746Priepu flowsheetMarc D Dolce DPM FACFAS Work Phone: [facility]villenStart: 01-09-2025 End: 90-31-4470Gxavxv flowsheetMarc D Dolce DPM FACFAS Work Phone: [facility] AreawnStart: 01-09-2025 End: 24-39-0051Cyhkgizhd encounterMarc D Dolce DPM FACFAS Work Phone: [facility] EXT DEPStart: 01-09-2025 End: 37-27-0313bxjpvauyxdTTKZ D DOLCENot AvailableStart: 01-09-2025 End: 43-36-3157Lulryt outpatient new 30 minutesMarc D Dolce DPM FACFAS Work Phone: [facility] NMA PODComment on above:Metatarsal deformity, left (Primary Dx); Left foot pain; Hammer toe of left foot; Other enthesopathy of right foot and ankle; Hammer toe of right foot; Other synovitis and tenosynovitis, right ankle and foot [M65.871]Start: 12-20-2024 End: 87-78-1179Ttzowlxxw Result EncounterGeneric External Data ProviderNOMS External Department UnsolicitedStart: 12-20-2024 End: 34-99-2923Xayzjsamh Result EncounterGeneric External Data ProviderNOMS External Department UnsolicitedStart: 11-16-2024 End: 59-34-2336Qkgulkyzd Result EncounterGeneric External Data ProviderNOMS External Department UnsolicitedStart: 11-16-2024 End: 41-86-8796Kpjvtrzgt Result EncounterGeneric External Data ProviderNOMS External Department UnsolicitedStart: 10-26-2024 End: 03-69-2006Bihyurl encounter procedureRosario Amezquita ACCOUNTANT CONTROLLER Work Phone: [facility] CWM FMComment on above:Medicare annual wellness visit, subsequent (Primary Dx); Major depressive disorder, single episode, in full remission ; Mixed hyperlipidemia ; Hx of opioid abuse ([facility]); Anxiety; Gastroesophageal reflux disease without esophagitis; Encounter for screening mammogram for malignant neoplasm of breast; Chronic bilateral low back pain without sciaticaStart: 10-26-2024 End: 16-62-7910sszhksrrtdICYI AICHHOLZNot AvailableStart: 10-13-2024 End: 23-00-8964Ssqfkdksi Result EncounterGeneric External Data ProviderNOMS External Department UnsolicitedStart: 10-13-2024 End: 14-22-6185Czdliaecm Result EncounterGeneric External Data ProviderNOMS External Department UnsolicitedStart: 10-09-2024 End: 33-16-1101DjnpxsNsum Aichholz ACCOUNTANT CONTROLLER Work Phone: [facility] CWM FMComment on above:Osteoporosis, post- menopausal ; Age related osteoporosis, unspecified pathological fracture presenceStart: 10-06-2024 End: 26-09-0056Dtwttbmec Result EncounterGeneric External Data ProviderNOMS External Department UnsolicitedStart: 10-06-2024 End: 01-98-1807Dqnppngof Result EncounterGeneric External Data ProviderNOMS External Department UnsolicitedStart: 06-28-2024 End: 51-35-3499VvoeekXqdu Aichholz ACCOUNTANT CONTROLLER Work Phone: noMS CWM FMComment on above:Chronic bilateral low back pain without sciaticaStart: 06-28-2024 End: 06-45-6611Oahmtipwa encounterLisa Amezquita ACCOUNTANT CONTROLLER Work Phone: NOTS CWM FMStart: 06-07-2024 End: 57-85-4663XivkhdLrya Aichholz ACCOUNTANT CONTROLLER Work Phone: noMS CWM FMComment on above:Age-related osteoporosis without current pathological fracture ([facility])Start: 05-26-2024 End: 63-58-1676Squvfcvnq Result EncounterLisa Amezquita ACCOUNTANT CONTROLLER Work Phone: [facility] External Department UnsolicitedStart: 05-26-2024 End: 57-02-0384Wnjmpouqi Result EncounterLisa Matiasholz ACCOUNTANT CONTROLLER Work Phone: [facility] External Department UnsolicitedStart: 05-14-2024 End: 36-87-3733BykaoaUybr Aichholz ACCOUNTANT CONTROLLER Work Phone: [facility] CWM FMComment on above:Gastroesophageal reflux disease without esophagitisStart: 05-10-2024 End: 16-48-7307Voxcsn outpatient visit 15 minutesLisa Salcedoholz ACCOUNTANT CONTROLLER Work Phone: [facility] CWM FMComment on above:Viral upper respiratory tract infection (Primary Dx)Start: 05-10-2024 End: 24-78-7112ipaerrhpssOIBT AICHHOLZNot AvailableStart: 05-10-2024 End: 00-27-5824Sbxwzi flowsheetLisa Aichholz ACCOUNTANT CONTROLLER Work Phone: [facility] CWM FMStart: 05-10-2024 End: 53-03-5403Eaunue flowsheetLisa Aichholz ACCOUNTANT CONTROLLER Work Phone: [facility] CWM FMStart: 04-05-2024 End: 04-93-6688Urofwl flowsheetLisa Aichholz ACCOUNTANT CONTROLLER Work Phone: [facility] CWM FMStart: 04-05-2024 End: 03-42-1471Ektaqj flowsheetLisa Matiasholz ACCOUNTANT CONTROLLER Work Phone: [facility] CWM FMStart: 04-05-2024 End: 10-41-8199Eqohmt outpatient visit 25 minutesLisa Aichholz ACCOUNTANT CONTROLLER Work Phone: [facility] CWM FMComment on above:Pain in both lower extremities (Primary Dx); Muscle cramps at night; Vitamin deficiency; Chronic bilateral low back pain without sciaticaStart: 04-05-2024 End: 69-20-7441sxzwnhfjiuOSLA AICHHOLZNot AvailableStart: 03-02-2024 End: 46-31-8639Dbojzt outpatient visit 25 minutesLisa Aichholz ACCOUNTANT CONTROLLER Work Phone: [facility] CWM FMComment on above:Anxiety (Primary Dx); Major depressive disorder, single episode, in full remission (CMS/HCC); Overweight (BMI 25.0-29.9); Osteoporosis, post-menopausal (CMS/HCC); Gastroesophageal reflux disease without esophagitis; Heart murmurStart: 03-02-2024 End: 78-18-7772nfbleukgytKTIL AICHHOLZNot AvailableStart: 03-02-2024 End: 50-75-1886Nttuhq flowsheetLisa Aichholz ACCOUNTANT CONTROLLER Work Phone: NOMS CWM FMStart: 03-02-2024 End: 63-81-6733Xcmtfu flowsheetLisa Aichholz ACCOUNTANT CONTROLLER Work Phone: NOYS CWM FMStart: 02-13-2024 End: 37-19-9795QnqifoMjwg Aichholz ACCOUNTANT CONTROLLER Work Phone: NOJJ CWM FMComment on above:Chronic bilateral low back pain without sciaticaStart: 01-17-2024 End: 39-99-7537SuzxzkQjze Aichholz ACCOUNTANT CONTROLLER Work Phone: NOJC CWM FMComment on above:Chronic bilateral low back pain without sciaticaStart: 01-03-2024 End: 08-10-1653UeiianGihh Aichholz ACCOUNTANT CONTROLLER Work Phone: NOUV CWM FMComment on above:AnxietyStart: 08-21-2023 End: 11-54-9476Yirvrsqnf Result EncounterLisa Aichholz ACCOUNTANT CONTROLLER Work Phone: noms External Department UnsolicitedStart: 08-21-2023 End: 70-31-4026Flxvevhno Result EncounterLisa Aichholz ACCOUNTANT CONTROLLER Work Phone: NORZ External Department UnsolicitedStart: 06-11-2023 Bamboo flowsheetLisa Aichholz ACCOUNTANT CONTROLLER Work Phone: NOBK CWM FMStart: 15-46-1814Jlzboc flowsheetLisa Aichholz ACCOUNTANT CONTROLLER Work Phone: noms CWM FMStart: 06-11-2023 End: 02-09-3499Ticyzbd encounter procedureRosario Amezquita ACCOUNTANT CONTROLLER Work Phone: noms CWM FMComment on above:Medicare annual wellness visit, subsequent (Primary Dx); Benign hypertension (CMS/HCC); Osteoporosis, post-menopausal (CMS/HCC); Anxiety; Gastroesophageal reflux disease without esophagitis; Age related osteoporosis, unspecified pathological fracture presence (CMS/HCC); Chronic bilateral low back pain without sciatica; Mixed hyperlipidemia ([facility]/HCC)Start: 06-03-2023 End: 95-26-8387Scikqoygu Result EncounterGeneric External Data ProviderNOMS External Department UnsolicitedStart: 06-03-2023 End: 74-37-8266Qopcbxnqs Result EncounterGeneric External Data ProviderNOMS External Department UnsolicitedStart: 07-21-2022 End: 67-92-2780aiymbfqnzvISY ROSARIO AICHHOLZFacility:Y7Tekwg: 02-12-2022 End: 51-71-3074kssquplronHCW ROSARIO AICHHOLZFacility:R7Rkebp: 01-09-2022 End: 52-18-0371vjeulkabmwGNC ROSARIO AICHHOLZFacility:A5Yxvfi: 01-06-2022 End: 34-64-5188ckdehgjpkgELE ROSARIO AICHHOLZFacility:Z1Cmfns: 12-03-2021 End: 14-23-8148pgidfhcysfHYM ROSARIO AICHHOLZFacility:L2Mnovs: 10-18-2021 End: 11-14-5061kwkipxcernRV JESSICA SAMPSONFacility:R1Xfvqz: 09-17-2021 End: 45-65-9660zafulijhqiMZ ISAIAH ROJASFacility:R7Dzizb: 08-06-2021 End: 40-36-1882rjpseibzjrRZEPBLWA CULLENFacility:U5Hkucj: 54-99-9479Hlpepgpvot KATHRYN (ACCOUNTANT CONTROLLER) [facility] Centertart: 01-09-2017 End: 34-11-3669Uedscepnuw and management of inpatientMICHAEL A VALENTEFairview Hospital Procedures DateProcedureProcedure DetailPerforming ClinicianStart: 54-02-4756Ieyow foot complete minimum 3 viewsMarc D Dolce DPM FACFAS Work Phone: Start: 03-65-3165ZSV BASIC METABOLIC PANELGeneric External Data ProviderStart: 51-18-0005PAG 12-LEADGeneric External Data Provider Start: 91-21-8831UTINVOJYQ BLOOD PRESSUREGeneric External Data ProviderStart: 63-32-6566WC FOOT LT MIN 3VGeneric External Data ProviderStart: 14-81-2915NC FOOT RT MIN 3VGeneric External Data ProviderStart: 55-04-5678QX DEXA AXIAL SKELETONLisa Aichholz ACCOUNTANT CONTROLLER Work Phone: Start: 04-08-9024Zoftbnbnk influenzaLisa Aichholz ACCOUNTANT CONTROLLER Work Phone: Start: 63-23-6713ZM TOMOSYNTHESIS SCREENING BILisa Aichholz ACCOUNTANT CONTROLLER Work Phone: Start: 99-16-1028UezjwwyincwKxad Aichholz ACCOUNTANT CONTROLLER Work Phone: Start: 65-30-2032WW FOOT RT MIN 3VGeneric External Data ProviderStart: 52-93-2443RxspafamogoCyva Aichholz ACCOUNTANT CONTROLLER Work Phone: Start: 58-57-1593Klximten screenComment on above:Order Comment: Specimen Type: BLOOD SPECIMEN Ordering Facility: [facility] Address: [address] [place] [id number] By: #### TSCR #### [facility] CLIA [id number] [address] [place] [id number] [place] Plan of Treatment DateCare ActivityDetailAuthorStart: 11-01-2025 End: 42-51-6320Ibtzgks encounter jfyzllzsf73/08/2026 10:30 AM EDT Office Visit [facility] [address] [place] [address] Rosario Amezquita, ANSELMO [address] [place] [address] [facility] FMStart: 07-02-2026Medicare Annual Wellness (AWV) Medicare Annual Wellness (AWV)NOMS HealthcareStart: 05-02-2025 End: 70-43-8575Byiroyp encounter yutmdltuh71/06/2026 10:30 AM EST Office Visit [facility] [address] [place] [address] Rosario Amezquita, ANSELMO [address] [place] [address] [facility] FMStart: 36-92-6973Mapvpteud vaccinationInfluenza Vaccine (#1)NOM HealthcareStart: 10-26-2024 End: 31-20-1168NI Breast - bilateral ScreeningBilateral screening mammogram Imaging Routine Encounter for screening mammogram for malignant neoplasm of breast Expected: 10/26/2024 (Approximate), Expires: 12/27/2025[facility] Work Phone: Comment on above:Expected: 10/26/2024 (Approximate), Expires: 12/27/2025Start: 10-26-2024 End: 04-33-9832Fhnpcuh encounter arrtytdzo76/02/2025 10:30 AM EDT Office Visit [facility] [address] [place] [address] Rosario Amezquita, ACCOUNTANT CONTROLLER [address] [place] [address] [facility] FMStart: 10-81-8031Kyxjdixnz for malignant neoplasm of breastMammogramNOWY HealthcareStart: 06-16-2024 End: 22-02-6217Jwfxhrk encounter gtzdesokr94/20/2025 10:30 AM EST Office Visit [facility] [address] [place] [address] Rosario Amezquita, ACCOUNTANT CONTROLLER [address] [place] [address] NOMS CWM FMStart: 02-15-2025Medicare Annual Wellness (AWV) Medicare Annual Wellness (AWV)NOMS HealthcareStart: 05-10-2024 End: 41-28-9923Bpzthbs encounter zpetsctgv16/14/2025 4:00 PM EST Office Visit [facility] C[facility] FM [address] [place] [address] Rosario Amezquita, ANSELMO [address] [place] [address] ArrivedNOMS CW FMComment on above:ArrivedStart: 05-09-2024 End: 83-03-2758Ryzezbu encounter kxrebwigb45/13/2025 1:40 PM EST Office Visit [facility] C[facility] FM [address] [place] [address] Rosario Amezquita, ACCOUNTANT CONTROLLER [address] [place] [address] NOMS CW FMStart: 04-05-2024 End: 04-18-2989Xdaojfceb (Vitamin B12) [Mass/volume] in Serum or PlasmaVitamin B12 Lab Routine Vitamin deficiency Expected: 04/05/2024 (Approximate), Expires: 04/05/2025[facility] Work Phone: Comment on above:Expected: 04/05/2024 (Approximate), Expires: 04/05/2025Start: 04-05-2024 End: 13-45-4892Sitfuxvc kinase [Enzymatic activity/volume] in Serum or PlasmaCK Lab Routine Muscle cramps at night Expected: 04/05/2024 (Approximate), Expires: 04/05/2025NOMS HealthcareComment on above:Expected: 04/05/2024 (Approximate), Expires: 04/05/2025Start: 04-05-2024 End: 55-03-1317Gmslpszth [Mass/volume] in Serum or PlasmaMagnesium Lab Routine Muscle cramps at night Expected: 04/05/2024 (Approximate), Expires: 04/05/2025 NOMS HealthcareComment on above:Expected: 04/05/2024 (Approximate), Expires: 04/05/2025Start: 04-05-2024 End: 08-56-2162Cgoqlfy encounter efdnylfqq70/10/2024 1:20 PM EST [facility] [address] [place] [address] Rosario Amezquita, ACCOUNTANT CONTROLLER [address] [place] [address] [facility]rivedHO[facility] FMComment on above:ArrivedStart: 03-02-2024 End: 45-14-8824Qeurdrr encounter bghrapteh76/06/2024 2:20 PM EST Office Visit [facility] CW FM [address] [place] [address] Rosario Amezquita, ACCOUNTANT CONTROLLER [address] [place] [address] Overweight (BMI 25.0-29.9) (Primary Dx); Major depressive disorder, single episode, in full remission (CMS/HCC); Anxiety; Osteoporosis, post-menopausal (CMS/HCC); Gastroesophageal reflux disease without esophagitis NOMS CW FMComment on above:Overweight (BMI 25.0-29.9) (Primary Dx); Major depressive disorder, single episode, in full remission (CMS/HCC); Anxiety; Osteoporosis, post-menopausal (CMS/HCC); Gastroesophageal reflux disease without esophagitisStart: 02-29-2024 End: 07-77-6703Grdigcp encounter chsozimxm65/04/2024 1:40 PM EST Office Visit [facility] C[facility] [address] [place] [address] Rosario Amezquita, ACCOUNTANT CONTROLLER [address] [place] [address] NOMS CW FMStart: 02-09-2024 End: 59-23-9434Vmuvkkj encounter igeoblojo28/15/2024 1:00 PM EDT Office Visit [facility] C[facility] [address] [place] [address] Rosario Amezquita, ACCOUNTANT CONTROLLER [address] [place] [address] NOMS CW FMStart: 63-96-2249Mqokhtqvr vaccinationInfluenza Vaccine (#1)NOMS HealthcareStart: 10-12-2023 End: 51-47-0051Jzdfwlz encounter ielakgxqj55/17/2024 2:00 PM EDT Office Visit [facility] C[facility] FM [address] [place] [address] Rosario Amezquita, ACCOUNTANT CONTROLLER [address] [place] [address] NOMS CW FMStart: 53-94-9566Tshvwbrrb for malignant neoplasm of breastMammogramNOWY HealthcareStart: 06-11-2023 End: 26-15-3189Zzkohwz encounter eremulsrm95/15/2024 1:20 PM EST Office Visit [facility] C[facility] FM [address] [place] [address] Rosario Amezquita, ACCOUNTANT CONTROLLER [address] [place] [address] [facility] FMComment on above:ArrivedStart: 1955 Medicare Annual Wellness (AWV)Medicare Annual Wellness (AWV)[facility] Immunizations Immunization DateImmunizationNotesCare KgntcxkrExvrsspz96-25-4433wudpxobvr, high dose seasonal, preservative-freeLisa Aichholz ACCOUNTANT CONTROLLER Work Phone: [phone] [place], [place] [address]Eqdwdwsvcb58-19-0001Woudvltsntby Conjugate PCV 20 Rosario Aichholz ACCOUNTANT CONTROLLER Work Phone: [facility] HospitalXvztamhxrg08-66-6779osvcjhfld virus vaccine, unspecified formulationLisa Aichholz ACCOUNTANT CONTROLLER Work Phone: [phone] [place], [place] [address]Ypkqlpbmgk54-25-3781Stneunwqz, Seasonal, Quadrivalent, AdjuvantedLisa Aichholz ACCOUNTANT CONTROLLER Work Phone: [phone] [place], [place] [address]Sfpmquptvy03-98-2301agkcqoijc virus vaccine, unspecified formulationLisa Aichholz ACCOUNTANT CONTROLLER Work Phone: [phone] [address] [place], [place] [address]Edespnlejj56-37-5186rmdyvo vaccine recombinant Rosario Aichholz ACCOUNTANT CONTROLLER Work Phone: [phone] [place], [place] [address]Ustzbhyycq24-96-5213vyipnz vaccine recombinant Rosario Aichholz ACCOUNTANT CONTROLLER Work Phone: [phone] [place], [place] [address]Zljndbkbzv64-65-1683pqvneexfu, injectable, quadrivalent, preservative freeLisa Aichholz ACCOUNTANT CONTROLLER Work Phone: [phone] [place], [place] [address]Nsqvbmxijf03-05-9016kiogemapc virus vaccine, unspecified formulationLisa Aichholz ACCOUNTANT CONTROLLER Work Phone: [phone] [place], [place] [address]Nuuajbqroo33-94-9203mltljmtww, seasonal, injectableLisa Aichholz ACCOUNTANT CONTROLLER Work Phone: [phone] [place], [place] [address]Rihmsbpesf79-32-5899wayszyoua, seasonal, injectableLisa Aichholz ACCOUNTANT CONTROLLER Work Phone: [phone] [place], [place] [address]Fbzcewddty05-73-6701lhcckxwrpydw polysaccharide vaccine, 23 valentLisa Aichholz ACCOUNTANT CONTROLLER Work Phone: [phone] [place], [place] [address]Jndwwwepnc10-97-4586xkilshymx, seasonal, injectableLisa Aichholz ACCOUNTANT CONTROLLER Work Phone: [phone] [place], [place] [address]Pzfpgqxnhf87-51-3283yqmjxzttkwsd polysaccharide vaccine, 23 valentLisa Aichholz ACCOUNTANT CONTROLLER Work Phone: [facility] Payers DatePayer CategoryPayerPolicy [id number] MEDICARE ADVANTAGE ANTHEM MEDICARE ADVANTAGE [id number] 2023-Present [address] [place] [id number] 2024Medicare (Managed Care)ANTHEM MEDICARE ADVANTAGE Member Subscriber Plan / Payer (Effective 2023-) Name: Sofie Adrian Relation to Subscriber: Self Name: Sofie Adrian Payer ID: Not on file Group ID: [id number] Type: Not on file Address: [address] [place] [id number] 2024Medicare [id number] [id number] [id number] 43-69-0200Tcktgwl Health [id number] 2..1.735678.3.57[id number] 2.0.1.294476.3.57[id number] 2..1.611374.3.57[id number] 2.0.1.336224.3.57[id number] 2.0.1.478534.3.57[id number] 2.16.840.1.679711.3.57[id number] 2.16.840.1.738818.3.57[id number] 2.16.840.1.429512.3.57[id number] 2.16.840.1.150957.3.57[id number] 2.16.840.1.939206.3.57[id number] 2.16.840.1.181069.3.57[id number] 2.16.840.1.939962.3.57[id number] 2.16.840.1.721402.3.57[id number] 2.16.840.1.291322.3.579.2.1259 Social History DateTypeDetailFacilityStart: 90-90-0807Dzwydfv smoking status NHISEx-smokerNOMS HealthcareHistory of tobacco useCurrent smokerNOMS HealthcareHistory of tobacco useCigarette SmokerNOMS HealthcareStart: 08-60-9411Mewqsec use and exposure Smokeless tobacco non-userNOMS HealthcareStart: 06-02-2023 End: 04-83-2466Sfgalhe intakeLifetime non-drinker (finding)NOMS HealthcareStart: 06-02-2023 End: 72-14-1080Dqdjwfw of Social functionNOMS HealthcareStart: 06-02-2023 End: 39-61-0340Yktdiaybeuc, Afraid, Rape, and Kick questionnaire [HARK]NOMS HealthcareWithin the last year, have you been afraid of your partner or ex-partner?NoNOMS HealthcareAre you now , , , , never or living with a partner?MarriedNOWY HealthcareHow often to you have a drink containing alcohol?NeverSaint Alexius HospitalStart: 88-84-3412Mvt many standard drinks containing alcohol do you have on a typical day?Patient does not drinkNOMS HealthcareDo you feel stress - tense, restless, nervous, or anxious, or unable to sleep at night because yourmind is troubled all the time - these days [OSQ]To some extentNOWY Healthcare(I/We) worried whether (my/our) food would run out before (I/we) got money to buy more.Never trueS[facility] Healthcare Start: 72-24-3506Acj Assigned At BirthNot on [facility] Functional Status FasvTootnoomnhNfevbsRqwumeex35-10-9306Wztigbe Health Questionnaire 2 item (PHQ- 2) [Reported][facility] HospitalUrmgaybpss83-77-7137Izlgdpu Health Questionnaire 2 item (PHQ- 2) [Reported][facility] HospitalFfymmglegz81-35-9785Vegytmcbl depression scale (GDS).short version [facility] CenterXwnamvimlk32-10-2821Sqzzyae Health Questionnaire 2 item (PHQ- 2) [Reported][facility] Clinical Notes 09-17-2021 to 01-09-2025 Note Date & OdkzLkeePikpxqif71-69-9640 Telephone encounter Note* Telephone Encounter - Dayton Ozuna DPM FACFAS - 01/09/2025 10:26 PM EDT Phone #: [phone] Insurance: Payor: [facility] MEDICARE ADVANTAGE / Plan: [facility] MEDICARE ADVANTAGE/ Product Type: *No Product type* / Preferred Date/Time: First Available [x] OBINNA [] Patient Name: Sofie Adrian : 1955 Surgeon: Dr. Dayton Ozuna [x] Dr. Bret Ozuna [] Location: [facility] [x] [place] [] [facility] [] Procedure(s): De-rotational arthroplasty left 3rd digit 2. Naresh osteotomy left 3rd metatarsal CPT Code(s): 95626, 51965 Diagnosis: ICD-10-CM 1. Hammer toe of left [...] brace [] Arthrex FiberTak [] Biopro Staple []Biopro Marko Impant [] Other [] Pre-op Orders: [...] physician no narcotics from anesthesia popliteal block [facility] HospitalGbqhktohmk08-99-3983 Miscellaneous Notes* Telephone Encounter - JC Guzman - 01/09/2025 10:26 PM EDT Phone #: [phone] Insurance: Payor: [employer] MEDICARE ADVANTAGE / Plan: [facility] MEDICARE ADVANTAGE/ Product Type: *No Product type* / Preferred Date/Time: First Available [x] OBINNA [] Patient Name: Sofie Adrian : 1955 Surgeon: Dr. Dayton Ozuna [x] Dr. Bret Ozuna [] Location: [facility] [x] [place] [] [facility] [] Procedure(s): De-rotational arthroplasty left 3rd digit 2. Naresh osteotomy left 3rd metatarsal CPT Code(s): 48354, 26924 Diagnosis: ICD-10-CM 1. Hammer toe of left [...] brace [] Arthrex FiberTak [] Biopro Staple []Biopro Marko Impant [] Other [] Pre-op Orders: [...] from anesthesia popliteal block documented in this encounterSaint Alexius HospitalYidvdgdcwx46-67-2390 History of Present illness Narrative* JC Guzman - 01/09/2025 11:00 AM EDT Images from the original note were not included. Patient: Sofie Adrian : 1955 PCP: Dayton Amaya MD SUBJECTIVE This is a 69 y.o. female that presents today for a chief complaint of pain about the left 3rd digitand 3rd metatarsal region. She had a previous 1st metatarsophalangeal joint fusion performed by bilaterally. The 3rd digit is in a severe contracted position and has been previously surgically corrected. It was quite painful and hurts when she walks performs activities of daily living.She is also complaining of the large swelling/ mass noted at the interphalangeal joint of the rightgreat toe. Hurts in shoes when performing activities [...] visit, subsequent 06/11/2023 Hx of opioid abuse ([facility] 10/12/2023 Overweight (BMI 25.0-29.9) 10/12/2023 Major depressive [...] abuse, in remission Back pain Opioid abuse ([facility]) Medications: Current Outpatient Medications: alendronate (Fosamax) 70 MG tablet, Take 1 tablet (70 mg) by mouth every 7 (seven) days Take with afull glass of water, remain upright for at least 30 mins, Disp: 12 tablet, Rfl: 1 atorvastatin (Lipitor) 10 MG tablet, Take 1 tablet (10 mg) by mouth at bedtime, Disp: 90 tablet, Rfl: 1 Buprenorphine HCl-Naloxone HCl (Suboxone) 8-2 MG SL film, Place 0.25 Film under the tongue, Disp: ,Rfl: Calcium 500 + D3 500-15 MG-MCG tablet, [...] mg) by mouth in the morning. Take beforemeals., Disp: 90 capsule, Rfl: 1 ROS: Constitutional: Denies fever, chills, nausea, vomiting GI: Denies abdominal pain, cramping, loose stool, gastric ulcers Musculoskeletal: Denies low back pain, knee pain, systemic arthritis Neurologic: Denies burning, tingling, transient paralysis OBJECTIVE Physical examination: Vascular: Dorsalis pedis posterior tibial pulses are palpable bilateral, no edema noted Neuro: [place]-Favian 5.07 monofilament intact, vibratory sensation intact Derm: [...] noted at the PIPJ joint quite painful uponpalpation toe is reducible. She is pain with [...] MEGAHERTZ LINEAR PROBE REVEALED: hypoechoic capsulitis/ bursitis aboutthe right 3rd metatarsophalangeal joint capsule. ASSESSMENT 1. [...] patient was injected with 1 cc of 2%lidocaine plain and 1 cc of Kenalog 10 [...] nonunion, malunion, chronic pain, development of complex regionalpain syndrome, development of deep venous thrombosis. Patient is currently on Subutex and we will require clearance by her pain management physician prior to surgery most likely recommend popliteal block with no narcotics. JC Guzman documented in this encounterSaint Alexius HospitalXqzurgwnkj45-04-3903 History of Present illness Narrative* TEMO STRICKLAND - 10/26/2024 10:30 AM EDT Pt is unsure if she has any cholesterol medication she is either out or lost them she has not takenany in two days. Pt needs refill on fluoxetine * Rosario Amezquita NP - 10/26/2024 10:30 AM EDT Images from the original note were not [...] in the last year: no Specialist: Podiatry [facility] HCPOA/Living Will: no Concerns: none SUBJECTIVE: MEDICATIONS: [...] Gout, unspecified 06/03/2023 Hyperlipidemia 06/03/2023 Opioid abuse ([facility]) Osteoporosis, post-menopausal 06/11/2023 Pain in joint, multiple [...] yearly and prn Hx of opioid abuse ([facility]) Took suboxone in the past, no recent med refills for this noted on [facility] Major depressive disorder, single episode, in full remission Current medications: fluoxetine * Rosario Amezquita NP - 10/26/2024 6:12 AM EDTAssociated Problem(s): Gastroesophageal reflux disease without esophagitis Recommendations: freq small meals, nothing to eat or drink at least 2 hours prior to bed, limit caffeine, alcohol, as well as spicy foods Meds to limit or avoid if possible: NSAIDS Elevate HOB if possible Current meds: omeprazole * Rosario Amezquita NP - 10/26/2024 6:12 AM EDTAssociated Problem(s): Osteoporosis, post-menopausal Continue fosamax, Last dexa: 05/26/24 -2.3 osteopenia * Rosario Amezquita NP - 10/26/2024 6:11 AM EDTAssociated Problem(s): Anxiety Current medication: fluoxetine * Rosario Amezquita NP - 10/26/2024 6:11 AM EDTAssociated Problem(s): Hx of opioid abuse ([facility]) Took suboxone in the past, no recent med refills for this noted on [facility] * Rosario Amezquita NP - 10/26/2024 6:11 AM EDTAssociated Problem(s): Hyperlipidemia On statin therapy Check labs yearly and prn dose changes * Rosario Amezquita NP - 10/26/2024 6:10 AM EDTAssociated Problem(s): Major depressive disorder, single episode, in full remission Current medications: fluoxetine * Rosario Amezquita NP - 10/26/2024 6:10 AM EDTAssociated Problem(s): Medicare annual wellness visit, subsequent Reviewed Ht/Wt/BMI Recommend eye exam yearly Recommend dental exams twice a year Balance work/leisure activities Exercises is recommended most days of the week (appropriate as chronic conditions allow) Follow up yearly and prn documented in this encounterNOMS Clkpuvxqml35-65-8977 Telephone encounter Note* Telephone Encounter - Rosario Amezquita NP - 06/28/2024 5:34 PM EST Reschedule AWV [place] NOMS Qoveyftrnn79-84-6916 Miscellaneous Notes* Telephone Encounter - Rosario Amezquita NP - 06/28/2024 5:34 PM EST Reschedyannick AWNisha [place] documented in this encounterSaint Alexius HospitalDomvalnkie62-08-0762 History of Present illness Narrative* Rosario Amezquita NP - 05/10/2024 4:37 PM ESTAssociated Problem(s): Viral upper respiratory tract infection Neg for flu Offered to test for COVID at [facility] or send out health trax, she declines Recommend fluids, rest, tylenol/motrin prn Warm salt water gargles, and throat lozenges Does not work til Thursday Will call if worsens, advised viruses last 7-10 days, worse by day 5 then better * TEMO STRICKLAND - 05/10/2024 4:00 PM EST Pt started with having a horse voice, ear pain, and coughing yesterday. Pt currently has a headache, sinus pressure, ear pain, stuffy nose, achy, and very fatigue. * Rosario Amezquita NP - 05/10/2024 4:00 PM EST Images from the original note were not [...] vomiting or wheezing. Treatments tried: motrin. The treatmentprovided mild relief. SUBJECTIVE: MEDICATIONS: Current Outpatient Medications [...] unspecified 06/03/2023 Hyperlipidemia (CMS/HCC) 06/03/2023 Opioid abuse ([facility]) Osteoporosis, post-menopausal (CMS/HCC) 06/11/2023 Pain in joint, [...] flu Offered to test for COVID at [facility] or send out health trax, she declines Recommend fluids, rest, tylenol/motrin prn Warm salt water gargles, and throat lozenges Does not work til Thursday Will call if worsens, advised viruses last 7-10 days, worse by day 5 then better Relevant Orders POCT Influenza A/B documented in this [facility]01-14-2025 Instructions* Patient Instructions* Rosario Amezquita NP - 05/10/2024 4:00 PM EST Fluids, rest, tylenol/motrin prn Throat lozenges, warm salt water gargles documented in this [facility]12-10-2024 History of Present illness Narrative* Rosario Amezquita NP - 04/05/2024 5:50 PM ESTAssociated Problem(s): Muscle cramps at night Check labs Differentials: PAD, radiculopathy, vit def, * Rosario Amezquita NP - 04/05/2024 1:51 PM ESTAssociated Problem(s): Pain in both lower extremities Does not feel it is RLS, voltaren gel helps No UE symptoms Ongoing 3 months at least Will order labs Differentials: lumbar radiculopathy, possible vit def, PAD Consider EMG if labs normal * TEMO STRICKLAND - 04/05/2024 1:20 PM EST Pt states she is having the back of her calves and sometimes back of the upper thigh muscles hurt almost every night. Pt states she believes it is NOT RLS she has tried medication for that and has not helped. 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 * Rosario Amezquita NP - 04/05/2024 1:20 PM EST Images from the original note were not [...] moderate. The pain has been Intermittent since onset.Pertinent negatives include no muscle weakness, numbness or tingling. She reports no foreign bodiespresent. The symptoms are aggravated by weight bearing. [...] remission Anxiety 06/02/2023 Back pain Benign hypertension ([facility]) 06/03/2023 Chronic bilateral low back pain without sciatica 03/30/2023 Diverticulosis of colon without diverticulitis 06/11/2023 Gout, unspecified 06/03/2023 Hyperlipidemia ([facility]) 06/03/2023 Opioid abuse ([facility]) Osteoporosis, post-menopausal ([facility]) 06/11/2023 Pain in joint, multiple sites 06/11/2023 [...] Relevant Orders Vitamin B12 documented in this [facility]12-10-2024 Instructions* Patient Instructions* Rosario Amezquita NP - 04/05/2024 1:20 PM EST Check labs, if they are ok we will order an EMG to assess nerve function documented in this [facility]11-06-2024 History of Present illness Narrative* Rosario Amezquita NP - 03/02/2024 2:54 PM ESTAssociated Problem(s): Heart murmur No current symtpoms Will monitor * Rosario Amezquita NP - 03/02/2024 2:43 PM ESTAssociated Problem(s): Major depressive disorder, single episode, in full remission (CMS/HCC) No current depression symptoms * Rosario Amezquita NP - 03/02/2024 2:42 PM ESTAssociated Problem(s): Anxiety Continue fluoxetine script, but is trying to possibly discontinue * Rosario Amezquita NP - 03/02/2024 2:42 PM ESTAssociated Problem(s): Osteoporosis, post-menopausal (CMS/HCC) Continue fosamax, Needs DEXA scan * Rosario Amezquita NP - 03/02/2024 2:20 PM EST Images from the original note were not included. Sofie Adrian is a 68 y.o. female presents with chief complaint of No chief complaint on file. HPI: Has lost 20 pounds since 09/2023. Has been working with diet changes and worked at [employer] activity. No abd pain, no NV, no [...] unspecified 06/03/2023 Hyperlipidemia (CMS/HCC) 06/03/2023 Opioid abuse ([facility]) Osteoporosis, post-menopausal (CMS/HCC) 06/11/2023 Pain in joint, [...] is trying to possibly discontinue Osteoporosis, post-menopausal ([facility]/HCC) Continue fosamax, Needs DEXA scan Overweight (BMI 25.0-29.9) Major depressive disorder, single episode, in full remission (CMS/HCC) No current depression symptoms Heart murmur No current symtpoms Will monitor * Rosario Amezquita NP - 03/02/2024 7:15 AM ESTAssociated Problem(s): Gastroesophageal reflux disease without esophagitis Recommendations: freq small meals, nothing to eat or drink at least 2 hours prior to bed, limit caffeine, alcohol, as well as spicy foods Meds to limit or avoid if possible: NSAIDS Elevate HOB if possible documented in this [facility]11-06-2024 Instructions* Patient Instructions* Rosario Amezquita NP - 03/02/2024 2:20 PM EST Lab work Bone density scan: will send to [facility] documented in this [facility]02-15-2024 History of Present illness Narrative* Rosario Amezquita NP - 06/11/2023 2:10 PM ESTAssociated Problem(s): Anxiety Doing well on meds * Rosario Amezquita NP - 06/11/2023 2:10 PM ESTAssociated Problem(s): Gastroesophageal reflux disease without esophagitis stable * Rosario Amezquita NP - 06/11/2023 2:09 PM ESTAssociated Problem(s): Osteoporosis, post-menopausal ([facility]/HCC) Continue fosamax * Rosario Amezquita NP - 06/11/2023 2:09 PM ESTAssociated Problem(s): Benign hypertension (CMS/HCC) Stable, no changes in meds * Rosario Amezquita NP - 06/11/2023 1:59 PM ESTAssociated Problem(s): Medicare annual wellness visit, subsequent Reviewed Ht/Wt/BMI Recommend eye exam yearly Recommend dental exams twice a year Balance work/leisure activities Exercises is recommended most days of the week (appropriate as chronic conditions allow) Follow up yearly and prn * TEMO TSRICKLAND - 06/11/2023 1:20 PM EST Masha changed her suboxone dose- she has been decreasing dosage since April she was at 2 films now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 The insurance was changed. * Rosario Amezquita NP - 06/11/2023 1:20 PM EST Images from the original note were not [...] dysphagia, no early satiety, no nausea or nosore throat. This is a chronic problem. The [...] remission Anxiety 06/02/2023 Back pain Benign hypertension ([facility]/HCC) 06/03/2023 Chronic bilateral low back pain without sciatica 03/30/2023 Diverticulosis of colon without diverticulitis 06/11/2023 Gout, unspecified 06/03/2023 Hyperlipidemia ([facility]/HCC) 06/03/2023 Opioid abuse ([facility]) Osteoporosis, post-menopausal ([facility]) 06/11/2023 Pain in joint, multiple sites 06/11/2023 [...] (Fosamax) 70 MG tablet documented [id number] NoteHNO ID: [id number] Author: Koko Burris MD Service: General Surgery [...] your independent professional judgment. Thank you, [email or web address] [facility] Hospital06-28-2022 NoteHNO ID: [id number] Author: Joceline Liang MD Service: General Surgery [...] Acute Care Surgery (ACS) Day Floor Pager: [phone] Acute Care Surgery (ACS) Day Consults Pager: [phone] On nights (6 pm to 6 am) and on Weekends/Holidays, please page the on-call pager: [phone] ___ Subjective: See above Physical Exam: BP [...] 1.1 Intake and Output: Date 10/21/21699 - 10/22/2165810/22/21699 - 10/23/21 0659 Shift 9499-9093 0038-3442 4657-6322 24 Hour Total 8736-4465 0660-1525 1630-7348 24 Hour Total INTAKE PO 120 240 [...] mg sublingual film (SUBOXONE) 2 Film SUBLINGUAL DAILYMary [facility]an Hospital06-27-2022 NoteHNO ID: [id number] Author: Merline Sanchez RN Service: Care Management Author Type: Registered Nurse Type: Care Mgt Initial Assessment Filed: 10/21/2021 11:35 AM Note Text: CARE MANAGEMENT: ASSESSMENT AND DISCHARGE PLAN SERVICE DATE: October 21, 2021 SERVICE TIME: 11:29 AM PRIMARY CARE PHYSICIAN: Rosario Amezquita CNP, [employer] W[employer]ER BACK TENDER Primary Contact: Extended Emergency Contact Information Primary Emergency Contact: Maude Adrian [place] Relation: Daughter Secondary Emergency Contact: cecile adam [place] Relation: Spouse ADMISSION STATUS: Inpatient Insurance Provider: N/A NEEDS PRIOR TO DISCHARGE Needs Prior to Discharge: To Be Determined;Procedure Procedure Needed: SBFT today POTENTIAL TRANSITION PLANS To Be Determined Patient's perception of need for this admission: SBO ADVANCE DIRECTIVES Current Advance Directive: None Sound Printer Attempted to Assist with AD Completion: Yes [...] PCP?: Yes, External Provider Provider Name: Rosario Zainab Amezquita, [facility] [phone] Does the patient have transportation upon discharge?: [...] Completely I feel financially burdened by my [id number] expenses for my prescription medication:: 0 - Disagree Completely Risk Score: 0 Patient is categorized as: Low risk < 2 FUNCTIONAL How do you manage to accomplish the following: Independent: Ambulation;Bathe/Shower;Dress;Meals/Meal Prep;Going to the bathroom;Medication Management;Transportation to appointments/community Services/Needs//Equipment Does Patient Currently Receive Any Community Services or Home Care?: None Equipment Prior to Admission: None Has the Patient Been in a Half-Way Facility in the Past 30 days?: No No medical discharge barriers identified at this time. No social discharge barriers identified at this time. No behavioral/cognitive discharge barriers identified at this time. No functional discharge barriers identified at this time. FREEDOM OF CHOICE EXPLAINED: [place] of Choice Given: No Reason Not Given: [...] 21, 2021 TIME: 11:29 AM CONTACT #: [phone]06-27-2022 Note HNO ID: [id number] Author: Koko Burris MD Service: General Surgery [...] Acute Care Surgery (ACS) Day Floor Pager: [phone] Acute Care Surgery (ACS) Day Consults Pager: [phone] On nights (6 pm to 6 am) and on Weekends/Holidays, please page the on-call pager: [phone] ___ Subjective: See above Physical Exam: BP [...] 1.1 Intake and Output: Date 10/20/21699 - 10/21/21 0610/21/21699 - 10/22/21 06 Shift 7517-2297 3487-9243 1383-4878 24 Hour Total 4676-6607 4300-3347 7459-0693 24 Hour Total INTAKE IV 850 949 379 5770 Volume (mL) (NaCl 0.9% iv flush bag) 600 600 Volume (mL) (potassium chloride iv piggyback 20 mEq/100 mL) 200 100 300 Volume (mL) (magnesium sulfate 2 g in sterile water 50 ml) 50 50 Volume (mL) (dextrose 5% in NaCl 0.45% iv infusion) 794 908 6096 Shift Total 850 382 600 3045 OUTPUT Urine 400 126 518 7257 Void (ml) 400 121 640 7233 Tubes 75 25 100 Output (GI Feed 10/19/21 1700 Admission to Hospital Gastric Right Naris) 75 25 100 Shift Total 475 826 500 3230 Weight (kg) 56.5 56.5 56.5 56.5 56.5 [...] mg sublingual film (SUBOXONE) 2 Film SUBLINGUAL DAILYMary [facility] Hospital06-26-2022 NoteHNO ID: [id number] Author: Leighann Rodriguez RN Service: Nursing Author [...] patient. This note was completed by: Leighann ParsonsRiverside Methodist Hospital06-26-2022 NoteHNO ID: [id number] Author: Koko Burris MD Service: General Surgery [...] Acute Care Surgery (ACS) Day Floor Pager: [phone] Acute Care Surgery (ACS) Day Consults Pager: [phone] On nights (6 pm to 6 am) and on Weekends/Holidays, please page the on-call pager: [phone] ___ Subjective: See above Physical Exam: BP [...] Intake and Output: Date 10/19/21699 - 10/20/21 0659 10/20/21 07 - 10/21/21 0659 Shift 5323-3480 4410-3832 1232-8406 24 Hour Total 1756-1034 3663-6649 2589-1007 24 Hour Total INTAKE IV 300 600 900 Volume (mL) (dextrose 5% in NaCl 0.45% iv infusion) 300 600 900 Shift Total 300 600 900 OUTPUT Urine 250 450 700 Void (ml) 250 450 700 Tubes 350 150 500 Output (GI Feed 10/19/21 1700 Admission to Hospital Gastric Right Naris) 350 150 500 Shift Total 445 629 3547 Weight (kg) 56.5 56.5 56.5 56.5 56.5 [...] Units injection 5,000 Units SUBCUTANEOUS q 12 [facility]05-24-2022 NotePROCEDURE: XR FOOT LT MIN 3 VIEWS HISTORY: Pain in left [...] Electronically authenticated by: ISAIAH ROJAS Date: 2021-09-17 11:44[facility] Diagnosis Medicare annual wellness visit, subsequent- Primary Benign hypertension (CMS/HCC) Essential hypertension, benign Osteoporosis, post-menopausal (CMS/HCC) Senile osteoporosis Anxiety Anxiety state, unspecified Gastroesophageal reflux disease without esophagitis Esophageal reflux Age related osteoporosis, unspecified pathological fracture presence (CMS/HCC) Chronic bilateral low back pain without sciatica Mixed hyperlipidemia (CMS/HCC) Mixed hyperlipidemia documented in [facility]* Diagnosis Medicare annual wellness visit, subsequent- Primary Benign hypertension (CMS/HCC) Essential hypertension, benign Osteoporosis, post-menopausal (CMS/HCC) Senile osteoporosis Anxiety Anxiety state, unspecified Gastroesophageal reflux disease without esophagitis Esophageal reflux Age related osteoporosis, unspecified pathological fracture presence ([facility]) Chronic bilateral low back pain without sciatica Mixed hyperlipidemia ([facility]) Mixed hyperlipidemia Chronic bilateral low back pain without sciatica- Primary Anxiety Anxiety state, unspecified Anxiety- Primary Anxiety state, unspecified Hx of opioid abuse ([facility]) Chronic bilateral low back pain without sciatica Overweight (BMI 25.0-29.9) Overweight Chronic bilateral low back pain without sciatica documented in this encounter [facility]Evaluation note* Diagnosis Medicare annual wellness visit, subsequent- Primary Benign hypertension ([facility]) Essential hypertension, benign Osteoporosis, post-menopausal ([facility]) Senile osteoporosis Anxiety Anxiety state, unspecified Gastroesophageal reflux disease without esophagitis Esophageal reflux Age related osteoporosis, unspecified pathological fracture presence ([facility]) Chronic bilateral low back pain without sciatica Mixed hyperlipidemia ([facility]) Mixed hyperlipidemia Chronic bilateral low back pain without sciatica- Primary Anxiety Anxiety state, unspecified Anxiety- Primary Anxiety state, unspecified Hx of opioid abuse ([facility]) Chronic bilateral low back pain without sciatica Overweight (BMI 25.0-29.9) Overweight Anxiety- Primary Anxiety state, unspecified Major depressive disorder, single episode, in full remission ([facility]) Major depressive disorder, single episode in full remission Overweight (BMI 25.0-29.9) Overweight Osteoporosis, post-menopausal ([facility]) Senile osteoporosis Gastroesophageal reflux disease without esophagitis Esophageal reflux Heart murmur Undiagnosed cardiac murmurs documented in this encounter [facility]* Diagnosis Medicare annual wellness visit, subsequent- Primary Benign hypertension ([facility]) Essential hypertension, benign Osteoporosis, post-menopausal ([facility]) Senile osteoporosis Anxiety Anxiety state, unspecified Gastroesophageal reflux disease without esophagitis Esophageal reflux Age related osteoporosis, unspecified pathological fracture presence ([facility]) Chronic bilateral low back pain without sciatica Mixed hyperlipidemia ([facility]) Mixed hyperlipidemia Chronic bilateral low back pain without sciatica- Primary Anxiety Anxiety state, unspecified Anxiety- Primary Anxiety state, unspecified Hx of opioid abuse ([facility]) Chronic bilateral low back pain without sciatica Overweight (BMI 25.0-29.9) Overweight Anxiety- Primary Anxiety state, unspecified Major depressive disorder, single episode, in full remission ([facility]) Major depressive disorder, single episode in full remission Overweight (BMI 25.0-29.9) Overweight Osteoporosis, post-menopausal ([facility]/HCC) Senile osteoporosis Gastroesophageal reflux disease without esophagitis [...] annual wellness visit, subsequent- Primary Benign hypertension ([facility]) Essential hypertension, benign Osteoporosis, post-menopausal ([facility]) Senile osteoporosis Anxiety Anxiety state, unspecified Gastroesophageal reflux disease without esophagitis Esophageal reflux Age related osteoporosis, unspecified pathological fracture presence [facility] Chronic bilateral low back pain without sciatica Mixed hyperlipidemia ([facility]) Mixed hyperlipidemia Chronic bilateral low back pain without sciatica- Primary Anxiety Anxiety state, unspecified Anxiety- Primary Anxiety state, unspecified Hx of opioid abuse ([facility]) Chronic bilateral low back pain without sciatica Overweight (BMI 25.0-29.9) Overweight Anxiety- Primary Anxiety state, unspecified Major depressive disorder, single episode, in full remission ([facility]) Major depressive disorder, single episode in full remission Overweight (BMI 25.0-29.9) Overweight Osteoporosis, post-menopausal ([facility]) Senile osteoporosis Gastroesophageal reflux disease without esophagitis [...] annual wellness visit, subsequent- Primary Benign hypertension ([facility]) Essential hypertension, benign Osteoporosis, post-menopausal ([facility]) Senile osteoporosis Anxiety Anxiety state, unspecified Gastroesophageal reflux disease without esophagitis Esophageal reflux Age related osteoporosis, unspecified pathological fracture presence ([facility]) Chronic bilateral low back pain without sciatica Mixed hyperlipidemia ([facility]) Mixed hyperlipidemia Chronic bilateral low back pain without sciatica- Primary Anxiety Anxiety state, unspecified Anxiety- Primary Anxiety state, unspecified Hx of opioid abuse ([facility]) Chronic bilateral low back pain without sciatica Overweight (BMI 25.0-29.9) Overweight Anxiety- Primary Anxiety state, unspecified Major depressive disorder, single episode, in full remission ([facility]) Major depressive disorder, single episode in full remission Overweight (BMI 25.0-29.9) Overweight Osteoporosis, post-menopausal ([facility]) Senile osteoporosis Gastroesophageal reflux disease without esophagitis [...] annual wellness visit, subsequent- Primary Benign hypertension ([facility]) Essential hypertension, benign Osteoporosis, post-menopausal ([facility]) Senile osteoporosis Anxiety Anxiety state, unspecified Gastroesophageal reflux disease without esophagitis Esophageal reflux Age related osteoporosis, unspecified pathological fracture presence ([facility]) Chronic bilateral low back pain without sciatica Mixed hyperlipidemia ([facility]) Mixed hyperlipidemia Chronic bilateral low back pain without sciatica- Primary Anxiety Anxiety state, unspecified Anxiety- Primary Anxiety state, unspecified Hx of opioid abuse ([facility]) Chronic bilateral low back pain without sciatica Overweight (BMI 25.0-29.9) Overweight Anxiety- Primary Anxiety state, unspecified Major depressive disorder, single episode, in full remission ([facility]) Major depressive disorder, single episode in full remission Overweight (BMI 25.0-29.9) Overweight Osteoporosis, post-menopausal ([facility]) Senile osteoporosis Gastroesophageal reflux disease without esophagitis Esophageal reflux Heart murmur Undiagnosed cardiac murmurs Pain in both lower extremities- Primary Muscle cramps at night Cramp of limb Vitamin deficiency Unspecified vitamin deficiency Chronic bilateral low back pain without sciatica Viral upper respiratory tract infection- Primary Acute upper respiratory infections of unspecified site Age-related osteoporosis without current pathological fracture ([facility]) documented in [facility] encounter [facility]* Diagnosis Medicare annual wellness visit, subsequent- Primary Benign hypertension ([facility]) Essential hypertension, benign Osteoporosis, post-menopausal ([facility]) Senile osteoporosis Anxiety Anxiety state, unspecified Gastroesophageal reflux disease without esophagitis Esophageal reflux Age related osteoporosis, unspecified pathological fracture presence ([facility]) Chronic bilateral low back pain without sciatica Mixed hyperlipidemia ([facility]) Mixed hyperlipidemia Chronic bilateral low back pain without sciatica- Primary Anxiety Anxiety state, unspecified Anxiety- Primary Anxiety state, unspecified Hx of opioid abuse ([facility]) Chronic bilateral low back pain without sciatica Overweight (BMI 25.0-29.9) Overweight Anxiety- Primary Anxiety state, unspecified Major depressive disorder, single episode, in full remission ([facility]) Major depressive disorder, single episode in full remission Overweight (BMI 25.0-29.9) Overweight Osteoporosis, post-menopausal ([facility]) Senile osteoporosis Gastroesophageal reflux disease without esophagitis [...] Anxiety state, unspecified Hx of opioid abuse ([facility]) Chronic bilateral low back pain without sciatica [...] Anxiety state, unspecified Hx of opioid abuse ([facility]) Chronic bilateral low back pain without sciatica [...] hyperlipidemia Mixed hyperlipidemia Hx of opioid abuse ([facility]) Anxiety Anxiety state, unspecified Gastroesophageal reflux disease [...] Anxiety state, unspecified Hx of opioid abuse ([facility]) Chronic bilateral low back pain without [...] hyperlipidemia Mixed hyperlipidemia Hx of opioid abuse ([facility]) Anxiety Anxiety state, unspecified Gastroesophageal reflux disease [...] Anxiety state, unspecified Hx of opioid abuse ([facility]) Chronic bilateral low back pain without sciatica [...] hyperlipidemia Mixed hyperlipidemia Hx of opioid abuse ([facility]) Anxiety Anxiety state, unspecified Gastroesophageal reflux disease [...] section and content) DATE CREATED AUTHOR 10/20/2017 [facility] DATE CREATED AUTHOR AUTHOR'S ORGANIZ ATION 10/21/2017 [facility] DATE CREATED AUTHOR AUTHOR'S ORGANIZ ATION 10/22/2021 [facility] DATE CREATED AUTHOR AUTHOR'S ORGANIZ ATION 07/30/2022 [facility] DATE CREATED AUTHOR AUTHOR'S ORGANIZ ATION 01/10/2025 [facility] EPIC Care Teams (unrecognized sec tion and content) Team MemberRelationshipSpecialtyStart DateEnd Date Rosario Amezquita NP [address] [place] [phone] PCP - [place]04/27/23 Dayton Amaya MD [address] [place] [phone] PCP - GeneralFamily Medicine06/11/23 Rosario Amezquita NP [address] [place] [phone] Referring PhysicianNurse Practitioner11/12/22 Rosario Amezquita NP [address] [place] [phone] Nurse PractitionerFatxly Medicine06/11/23Team MemberRelationshipSpecialtyStart DateEnd Date Rosario Amezquita NP [address] [place] [phone] PCP - [place]04/27/23 Dayton Amaya MD [address] [place] [phone] [facility] - [facility]Fab[facility]06/11/23 Rosario Amezquita NP [address] [place] [phone] Referring PhysicianNurse Practitioner11/12/22 Rosario Amezquita NP [address] [place] [address] Nurse PractitionerDorminy Medical Center06/11/23Team MemberRelationshipSpecialtyStart DateEnd Date Rosario Amezquita NP [address] [place] [address] PCP - [place]04/27/23 Dayton Amaya MD [address] [place] [address] PCP - [facility]06/11/23 Rosario Amezquita NP [address] [place] [address] Referring PhysicianNurse Practitioner11/12/22 Rosario Amezquita NP [address] [place] [address] Nurse PractitionerD[facility]iny [facility] Center06/11/23Team MemberRelationshipSpecialtyStart DateEnd Date Rosario Amezquita NP [address] [place] [address] PCP - [place] HERNANDEZ04/27/23 Dayton Amaya MD [address] [place] [address] PCP - [facility]06/11/23 Rosario Amezquita NP [address] [place] [address] Referring PhysicianNurse Practitioner11/12/22 Rosario Amezquita NP [address] [place] [address] Nurse Pract[facility]erD[facility] Center06/11/23Team MemberRelationshipSpecialtyStart DateEnd Date Rosario Amezquita NP [address] [place] [address] PCP - [place]04/27/23 Dayton Amaya MD [address] [place] [address] PCP - [facility]06/11/23 Rosario Amezquita NP [address] [place] [address] Referring PhysicianNurse Practitioner11/12/22 Rosario Amezquita NP [address] [place] [address] Nurse Pract[facility]erD[facility]06/11/23Team MemberRelationshipSpecialtyStart DateEnd Date Rosario Amezquita NP [address] [place] [address] PCP - [place]04/27/23 Dayton Amaya MD [address] [place] [address] PCP - [facility]06/11/23 Rosario Amezquita NP [address] [place] [address] Referring PhysicianNurse Practitioner11/12/22 Rosario Amezquita NP [address] [place] [address] Nurse Pract[facility]erD[facility] Center06/11/23Team MemberRelationshipSpecialtyStart DateEnd Date Rosario Amezquita NP [address] [place] [address] PCP - [place] HERNANDEZ04/27/23 Dayton Amaya MD [address] [place] [address] PCP - [facility]06/11/23 Rosario Amezquita NP [address] [place] [address] Referring PhysicianNurse Practitioner11/12/22 Rosario Amezquita NP [address] [place] [address] Nurse PractitionerD[facility] Center06/11/23Team MemberRelationshipSpecialtyStart DateEnd Date Rosario Amezquita NP [address] [place] [address]-1002 PCP - [place] HERNANDEZ04/27/23 Dayton Amaya MD [address] [place] [address] [facility]/23 Rosario Amezquita NP [address] [place] [address] Referring PhysicianNurse Practitioner11/12/22 Rosario Amezquita NP [address] [place] [address] Nurse Pract[facility]erD[facility] Center06/11/23Team MemberRelationshipSpecialtyStart DateEnd Date Rosario Amezquita NP [address] [place] [address] PCP - [place]04/27/23 Dayton Amaya MD [address] [place] [address] PCP - [facility]06/11/23 Rosario Amezquita NP [address] [place] [address] Referring PhysicianNurse Practitioner11/12/22 Rosario Amezquita NP [address] [place] [address] Nurse [facility]erFa[facility]06/11/23Team MemberRelationshipSpecialtyStart DateEnd Date Rosario Amezquita NP [address] [place] [address] PCP - [place]04/27/23 Dayton Amaya MD [address] [place] [address] PCP - [facility]06/11/23 Rosario Amezquita NP [address] [place] [address] Referring PhysicianNurse Practitioner11/12/22 Rosario Amezquita NP [address] [place] [address] [facility]Full[facility]06/11/23Team MemberRelationshipSpecialtyStart DateEnd Date Rosario Amezquita NP [address] [place] [address] PCP - [place]04/27/23 Dayton Amaya MD [address] [place] [address] [facility] - [facility]06/11/23 Rosario Amezquita NP [address] [place] [address] Referring PhysicianNurse Practitioner11/12/22 Roasrio Amezquita NP [address] [place] [address] Nurse PractitionerFabaystate [facility] Medicine06/11/23Team MemberRelationshipSpecialtyStart DateEnd Date Dayton Amaya MD [address] [place] [address]48[address] PCP - [facility]06/11/23 Rosario Amezquita NP [address] [place] [address] Referring PhysicianNurse Practitioner11/12/22 Rosario Amezquita NP [address] [place] [address]39[address] Nurse Pract[facility]erFaEl[facility]06/11/23Team MemberRelationshipSpecialtyStart DateEnd Date Rosario Amezquita NP [address] [place] [address] PCP - [place]04/27/23 Dayton Amaya MD [address] [place] [address]-1002 [facility] - [facility]06/11/23 Rosario Amezquita NP [address] [place] [address] Referring PhysicianNurse Practitioner11/12/22 Rosario Amezquita NP [address] [place] [address]4410[address] Nurse Pract[facility]Fa[facility]06/11/23Team MemberRelationshipSpecialtyStart DateEnd Date Rosario Amezquita NP [address] [place] [address]-1002 PCP - [place]04/27/23 Dayton Amaya MD [address] [place] [address] PCP - [facility]06/11/23 Rosario Amezquita NP [address] [place] [address] Referring PhysicianNurse Practitioner11/12/22 Rosario Amezquita NP [address] [place] [address] Nurse Pract[facility]erFull[facility] Medicine06/11/23Team MemberRelationshipSpecialtyStart DateEnd Date Rosario Amezquita NP [address] [place] [address]108[address]1002 PCP - [place]04/27/23 Dayton Amaya MD [address] [place] [address]1002 [facility]CP - [facility]06/11/23 Rosario Amezquita NP [address] [place] [address] Referring PhysicianNurse Practitioner11/12/22 Rosario Amezquita NP [address] [place] [address] Nurse PractitionerD[facility] Center06/11/23Team MemberRelationshipSpecialtyStart DateEnd Date Rosario Amezquita NP [address] [place] [address] PCP - [place]04/27/23 Dayton Amaya MD [address] [place] [address]1002 PCP - [facility]06/11/23 Rosario Amezquita NP [address] [place] [address] Referring PhysicianNurse Practitioner11/12/22 Rosario Amezquita NP [address] [place] [address] Nurse PractitionerD[facility] Center06/11/23Team MemberRelationshipSpecialtyStart DateEnd Date Rosario Amezquita NP [address] [place] [address] PCP - [place]04/27/23 Dayton Amaya MD [address] [place] [address] PCP - [facility]06/11/23 Rosario Amezquita NP [address] [place] [address] Referring PhysicianNurse Practitioner11/12/22 Rosario Amezquita NP [address] [place] [address] Nurse Pract[facility]erD[facility] Center06/11/23Team MemberRelationshipSpecialtyStart DateEnd Date Rosario Amezquita NP [address] [place] [address] PCP - [place]04/27/23 Dayton Amaya MD [address] [place] [address]-1002 PCP - [facility]06/11/23 Rosario Amezquita NP [address] [place] [address]34410-[address] Referring PhysicianNst. m[facility] [place] Practitioner11/12/22 Rosario Amezquita NP [address] [place] [address] Nurse PractitionerD[facility]iny [facility] Center06/11/23Team MemberRelationshipSpecialtyStart DateEnd Date Rosario Amezquita NP [address] [place] [address] PCP - [place]04/27/23 Dayton Amaya MD [address] [place] [address] PCP - [facility]01/09/25 Rosario Amezquita NP [address] [place] [address] Referring PhysicianNurse Practitioner11/12/22 Rosario Amezquita NP [address] [place] [address] Nurse Pract[facility]erD[facility] Center06/11/23Team MemberRelationshipSpecialtyStart DateEnd Date Rosario Amezquita NP [address] [place] [address] PCP - [place]04/27/23 Dayton Amaya MD [address] [place] [address]19610-1002 PCP - [facility]01/09/25 Rosario Amezquita NP [address] [place] [address] Referring PhysicianNurse Practitioner11/12/22 Rosario Amezquita NP [address] [place] [address]00210[address] Nurse Pract[facility]erD[facility] Center06/11/23Team MemberRelationshipSpecialtyStart DateEnd Date Rosario Amezquita NP [address] [place] [address] PCP - [place]04/27/23 Dayton Amaya MD [address] [place] [address]1002 PCP - [facility]01/09/25 Rosario Amezquita NP [address] [place] [address] Referring PhysicianNurse Practitioner11/12/22 Rosario Amezquita NP [address] [place] [address] Nurse PractitionerFamily Medicine06/11/23Team MemberRelationshipSpecialtyStart DateEnd Date Rosario Amezquita NP [address] [place] [address] PCP - [place]04/27/23 Dayton Amaya MD [address] [place] [address]-1002 PCP - GeneralFamily Medicine Dayton Amaya MD [address] [place] [address] PCP - [facility]Family Medicine01/09/25 Rosario Amezquita NP [address] [place] [address] Referring PhysicianNurse Practitioner11/12/22 Rosario Amezquita NP [address] [place] [address] Nurse PractitionerFamily Medicine06/11/23 Denisse Saldana LPN Licensed Practical NurseFamily MedicineTeam MemberRelationship SpecialtyStart DateEnd Date Dayton Amaya MD PCP - GeneralFamily Medicine Rosario Amezquita NP [address] [place] [address] PCP - [place]04/27/23 Dayton Amaya MD [address] [place] [address] PCP - [facility] Dayton Amaya MD [address] [place] [address] PCP - [facility]01/09/25 Rosario Amezquita NP [address] [place], [place] [address] Referring PhysicianNurse Practitioner11/12/22 Rosario Amezquita NP [address] [place] [address] Nurse PractitionerDorminy Medical Center06/11/23 Denisse Saldana LPN Licensed Practical NurseDorminy Medical Center Reason for Visit (unrecogniz ed section and content) ReasonCommentsMed RefillReasonCommentsLeg PainAches and pain in legsReason CommentsCoughReasonCommentsFoot DeformityLT foot 3rd digit deformity after sx in 2021 FOR RECORDS PERTAINING [...] BE BASED ON THE PRIMARY CLINICAL RECORDS. [facility], [facility]. provides no warranty or guarantee of the accuracy or completeness of information in this document.
[2025-02-22 22:14] LABS: Hematocrit 38.2 % (36.0-48.0); Hemoglobin 12.1 g/dL (12.0-16.0); Immature Granulocytes Abs Auto 0.01 10^3/uL (0.00-0.03); Immature Granulocytes Pct Auto 0.1 % (0.0-0.5); Lymphocytes Absolute Auto 1.4 10^3/uL (1.2-3.8); Mean Corpuscular HGB Conc 31.7 g/dL (29.9-35.2); Mean Corpuscular Hemoglobin 28.5 pg (26.7-34.0); Mean Corpuscular Volume 90.1 fL (81.0-99.0); Platelet Count 170 10^3/uL (150-450); Red Blood Count 4.24 10^6/uL (4.20-5.40); White Blood Count 9.0 10^3/uL (4.0-11.0)
[2025-02-22] MEDS: 0.9 % SODIUM CHLORIDE 1,000 ML 999 ML IV ×2 (22:19→23:52)
[2025-02-22 22:28] LABS: Anion Gap 11.4
[2025-02-22 22:31] LABS: Alanine Aminotransferase 14 U/L (14-59); Albumin Globulin Ratio 1.0; Albumin Level 3.9 g/dL (3.4-5.0); Alkaline Phosphatase 48 U/L (46-116); Aspartate Amino Transferase 23 U/L (15-37); Blood Urea Nitrogen 18.0 mg/dL (7.0-18.0); Calcium 10.3 mg/dL (8.5-10.1); Carbon Dioxide 28.3 mmol/L (21.0-32.0); Chloride 101 mmol/L (98-107); Estimated GFR (African America >60 (>=60 mL/min/1.73m^2); Estimated GFR (Non-African Ame >60 (>=60 mL/min/1.73m^2); Globulin 3.9 g/dL; Glucose 133 mg/dL (74-106); Lipase 21.0 U/L (16.0-77.0); Potassium 3.7 mmol/L (3.5-5.1); Sodium 137 mmol/L (136-145); Total Protein 7.8 g/dL (6.4-8.2)
[2025-02-22] MEDS: KETOROLAC TROMETHAMINE 30 MG/ML VIAL IVP (22:32)
[2025-02-22 22:39] LABS: Lactate/Lactic Acid 1.3 mmol/L (0.4-2.0)
[2025-02-23] VITALS (145 sets, daily range): BP systolic 110–193; BP diastolic 74–117; PULSE 68–100; TEMP 36.6; O2SAT 79–100
[2025-02-23 02:32] LABS: Glucose Urine UA NEGATIVE (NEGATIVE)
[2025-02-23] MEDS: 0.9 % SODIUM CHLORIDE 1,000 ML 100 ML IV ×2 (02:37→21:17)
[2025-02-23 02:38] LABS: Cast Seen? NONE SEEN #/LPF (NONE SEEN); Crystals Seen? None Seen #/HPF (None Seen); Urine Culture Indicated NO
[2025-02-23] MEDS: FENTANYL CITRATE/PF 100 MCG/2 ML VIAL 50 MCG IV (02:49)
[2025-02-23] MEDS: HYDROMORPHONE HCL 0.5 MG/0.5 ML SYRINGE IV (06:14)
--- NOTE | 2025-02-23 10:38 | PC.NURSE ---
with Dr King's permission, pt taking her own 8mg Suboxone sublingual pill at this time. informed pt of acceptence at [facility] but awaitng on bed.
--- NOTE | 2025-02-23 11:20 | PC.NURSE ---
informed of change of transfer destination to [facility] -- transfer form signed, dated and timed.
--- NOTE | 2025-02-23 11:30 | XR_ITS ---
The [address] [address] Patient Name: SOFIE ADRIAN MRN: [id number] date: 1955 Sex: F Assigned Patient Location: ER Current Patient Location: ER Accession/Order Number: [id number] Exam Date: 02/23/2025 11:25 Report Date: 02/23/2025 11:46 At the request of: HOLLIE EATON Procedure: XR chest 1V PORTABLE AP ERECT CHEST 0725 hours CLINICAL HISTORY: NG tube placement COMPARISON: 09/04/2020 An NG tube is present extending into the stomach. The side-port is beyond the GE junction. There is shallow inspiration. The heart is within normal limits. There is no vascular congestion. No consolidation is seen. There is no effusion or pneumothorax. The osseous structures are intact. There is air within stomach and bowel loops in the epigastric region. XR/XR chest 1V IMPRESSION: NG TUBE WITHIN THE STOMACH. NO ACUTE CARDIOPULMONARY FINDINGS Impression dictated by: Radha Triplett M.D. 02/23/2025 11:46 AM Dictation Location: [place] [address] Electronically authenticated by: [id number] Y Date: 02/23/2025 11:46
[2025-02-23] MEDS: HYOSCYAMINE SULFATE 0.125 MG TAB.SUBL SL (15:35)
[2025-02-23] MEDS: PANTOPRAZOLE SODIUM 40 MG VIAL IV (15:35)
[2025-02-23] MEDS: KETOROLAC TROMETHAMINE 30 MG/ML VIAL IVP (15:36)
[2025-02-23] MEDS: 0.9 % SODIUM CHLORIDE 1,000 ML 200 ML IV (15:37)
[2025-02-24] VITALS (7 sets, daily range): BP systolic 137–150; BP diastolic 88–96; PULSE 90–92; O2SAT 96
== END 2025-02-24 01:30 | disposition short-term general hospital (02) ==
PROVIDERS: Emergency Provider Internal Medicine; PCP Nurse Practitioner
DX: K56.609 Unspecified intestinal obstruction, unspecified as to partial versus complete obstruction (principal); Z87.891 Personal history of nicotine dependence
CPT/HCPCS: 36415; 71045; 74177; 80053; 81001; 83605; 83690; 84484; 85025; 93005; 96374; 96375; 96376; 99285; J1171; J1885; J2405; J3010; Q9967